=== PATIENT | male | born 1945 | race Caucasian/White ===

== ENCOUNTER 2018-01-09 06:33 | Observation (INO) | payer MEDICARE, OTHER, SELFPAY ==
[2018-01-09] VITALS (17 sets, daily range): BP systolic 117–148; BP diastolic 50–79; PULSE 63–90; RESP 17–21; TEMP 36.7–37.1; O2SAT 97–100; BMI 34.4; BMI 34.1; BMI 34.2
--- NOTE | 2018-01-09 06:42 | EKG12_ITS ---
Test Reason : LIGHTHEADEDNESS Blood Pressure : / mmHG Vent. Rate : 067 BPM Atrial Rate : 067 BPM P-R Int : 148 ms QRS Dur : 082 ms QT Int : 388 ms P-R-T Axes : 061 029 060 degrees QTc Int : 409 ms Normal sinus rhythm Normal ECG Confirmed by JENIFER JEAN BAPTISTE, JADEN ([id number]), film or videotape editor RAMON MAJANO ([id number]) on 01/12/2018 9:34:01 AM Referred By: OSBALDO Confirmed By:JADEN BURGESS MD
--- NOTE | 2018-01-09 06:42 | RAD_ITS ---
STUDY: X-RAY CHEST REASON FOR EXAM: Male, 72 years old. Chest pain TECHNIQUE: Single AP portable view of the chest. COMPARISON: None. FINDINGS: The lungs are clear and expanded. There is no demonstrated pleural abnormality. Normal size heart. Normal mediastinum and kenny. Normal visualized pulmonary arteries. Normal visualized aortic arch and descending thoracic aorta. Normal visualized thoracic spine. There is degenerative osteoarthritis of the bilateral shoulders. There is no demonstrated abnormality of the visualized soft tissue structures of the upper abdomen. RAD/Chest 1 View IMPRESSION: Degenerative changes, as described above. No demonstrated acute cardiopulmonary process. Electronically Signed: James Faustin MD at 8:08 EST Tel , Service support ,
--- NOTE | 2018-01-09 06:42 | CT_ITS ---
STUDY: CT BRAIN WITHOUT CONTRAST REASON FOR EXAM: Male, 72 years old. Dizziness RADIATION DOSAGE (If Supplied By Facility): CTDIvol = ( 44.99 ) mGy, DLP = ( 832.67 ) mGycm TECHNIQUE: Transaxial CT imaging of the brain was performed without administration of intravenous contrast material. Individualized dose optimization techniques were used for this CT. COMPARISON: None. FINDINGS: Normal soft tissue structures. Normal calvarium. There is mild cerebral atrophy with widening of the extra-axial spaces and ventricular dilatation. There are areas of decreased attenuation within the white matter tracts of the supratentorial brain, consistent with microvascular disease changes. Normal basal ganglia and thalami. Normal brainstem. Normal cerebellum. There is no intracranial hemorrhage. There are no findings of an acute ischemic infarction. Normal visualized paranasal sinuses. CT/Brain/Head without Contrast IMPRESSION: Chronic involutional changes of the brain. Electronically Signed: James Faustin MD at 7:55 EST Tel , Service support ,
--- NOTE | 2018-01-09 06:45 | ED.VISSUMM ---
- ER Visit Summary Date of Service: 01/09/18 Chief Complaint: Dizziness History of Present Illness: The patient is a 72 M who presents for dizziness since yesterday morning. Patient got up and was using the bathroom, and fell. He states he got dizzy prior to falling. He thinks he was sitting on the toilet when it occurred, and there is question whether he actually had a syncopal episode. Patient states he did not feel well the rest of the day, with a headache, continued dizziness and felt tired. He stayed in bed and slept most of the day. Whenever he has gotten out of bed he has to hold onto the wall for balance. He denies any chest pain, shortness of breath, abdominal pain, nausea or vomiting, vision changes, fever. He denies prior symptoms. He has a history of Parkinson's disease, diabetes and COPD. He has had no medication changes for the last 2 months. He was weaned off of benzodiazepines, with the last dose a couple months ago. He denies alcohol use. Physical Examination: Vital signs: afebrile, hemodynamically stable, no hypoxia on room air General: well nourished, well developed, in no distress, lying in bed Skin: warm, dry, no rash, no pallor HEENT: normocephalic and atraumatic no scalp tenderness or soft tissue injuries noted; PERRL, EOMI, no visual field deficits, no nystagmus, moist mucous membranes Cardiovascular: regular rate and rhythm without murmurs, no peripheral edema, 2+ pulses all distal extremities Respiratory: No increased work of breathing, lungs are clear to auscultation bilaterally, no rales, rhonchi or wheezing Abdominal: Abdomen is soft, nontender with normoactive bowel sounds, no guarding or rebound, no masses MSK: Moves all extremities, no deformities, normal strength Neuro: Awake and alert, oriented ?4. No facial droop, sensation and motor function intact and symmetric, normal finger to nose and heel to cano. NIH = 0 Test Results: Abnormal Lab Results 01/09/18 01/09/18 01/09/18 06:47 06:47 06:47 WBC 4.1 L RBC 3.67 L Hgb 12.1 L Hct 36.4 L MCV 99.2 H MCH 33.0 H MCHC 33.2 RDW 12.1 RDW Differential 42.9 Plt Count 98 L MPV 10.5 Immature Gran % (Auto) 0.000 Neut % (Auto) 67.4 Lymph % (Auto) 21.5 [place] % (Auto) 8.0 Eos % (Auto) 2.9 Baso % (Auto) 0.2 Absolute Neuts (auto) 2.8 Absolute Lymphs (auto) 0.89 Total Counted Not Reportable PT 15.0 H INR 1.2 APTT 32.0 Sodium 142 Potassium 4.1 Chloride 110 H Carbon Dioxide 21.0 Anion Gap 11 BUN 37 H Creatinine 1.52 H Estim Creat Clear Calc 38.48 Est GFR (MDRD) Af Amer 58 L Est GFR (MDRD) Non-Af 48 L BUN/Creatinine Ratio 24.3 H Glucose 198 H Calcium 7.9 L Total Bilirubin 0.40 AST 18 ALT 11 L Alkaline Phosphatase 76 Troponin I < 0.015 Total Protein 7.1 Albumin 3.2 Globulin 3.9 Albumin/Globulin Ratio 0.8 L POC Glucose 01/09/18 06:53 WBC RBC Hgb Hct MCV MCH MCHC RDW RDW Differential Plt Count MPV Immature Gran % (Auto) Neut % (Auto) Lymph % (Auto) [place] % (Auto) Eos % (Auto) Baso % (Auto) Absolute Neuts (auto) Absolute Lymphs (auto) Total Counted PT INR APTT Sodium Potassium Chloride Carbon Dioxide Anion Gap BUN Creatinine Estim Creat Clear Calc Est GFR (MDRD) Af Amer Est GFR (MDRD) Non-Af BUN/Creatinine Ratio Glucose Calcium Total Bilirubin AST ALT Alkaline Phosphatase Troponin I Total Protein Albumin Globulin Albumin/Globulin Ratio POC Glucose 194 H Medications Given Sodium Chloride () 1,000 mls @ 250 mls/hr IV .Q4H ONE Stop: 01/09/18 10:41 Last Admin: 01/09/18 06:53 Dose: 250 mls/hr Emergency Department Course and Treatment: Patient presents with dizziness since yesterday morning, which resulted in a fall. Patient is having difficulty describing his symptoms, but it sounds most consistent with imbalance/disequilibrium. Chart review shows patient had a prior visit for a fall in the bathroom due to his Parkinson's disease, however patient has had persistent symptoms since onset yesterday morning, concerning for a cause other than loss of balance due to Parkinson's or orthostatic hypotension. Workup performed to look for underlying cause, including possibility of central vertigo, such as cerebellar stroke. CT scan of the head showed no intracranial hemorrhage. Labs were remarkable for chronic thrombocytopenia, elevated creatinine consistent with dehydration. No significant anemia. Opponent negative and EKG showed a sinus rhythm with no ischemic changes or ectopy. Patient would benefit from admission for further evaluation of cause of his acute onset and persistent imbalance since yesterday. Once remaining labs and imaging return, patient will be admitted for further workup. Treatment Plan: [] Disposition: [] Impression: dysequilibrium, history of Parkinson's disease This note was generated with [employer] dictation software. It may contain incorrect words, spelling, and punctuation that were not noted in review of the chart prior to signing ED Disposition - Plan for ED Patient: Chief Complaint: Syncope Referrals: Radha Torres NP-C [Primary Care Provider] -
[2018-01-09] MEDS: 0.9% Normal Saline 1,000 ML 250 ML IV (06:53)
[2018-01-09 06:59] LABS: Absolute Lymphocyte Count 0.89 X10^3/ul (0.83-4.51); Absolute Neutrophil Count 2.8 X10^3/uL (2.0-7.7); Basophil# 0.01 X10^3/uL; Basophil% 0.2 % (0-1); Eosinophil# 0.12 X10^3/uL; Eosinophils% 2.9 % (0-5); Hematocrit 36.4 % (40-54); Hemoglobin 12.1 g/dl (13.0-16.5); Lymphocyte # 0.89 X10^3/ul (4.0); Lymphocyte % 21.5 % (19-41); Mean Corp Hgb Conc 33.2 g/gl (32-36); Mean Corpuscular Volume 99.2 fL (80-94); Mean Platelet Vol. 10.5 fl (6.2-12.0); Monocyte# 0.33 X10^3/uL; Neutrophil # 2.79 X10^3/uL (2.7-7.7); Neutrophil % 67.4 % (47-70); Platelet Count 98 K/mm3 (150-450); RBC Distribution Width CV 12.1 % (11.6-14.6); RBC Distribution Width SD 42.9 fl (35.1-43.9); Red Blood Count 3.67 M/mm3 (4.6-6.2); White Blood Count 4.1 K/mm3 (4.4-11.0)
[2018-01-09 07:00] LABS: POSITIVE COUNT NO; POSITIVE DIFFERENTIAL NO; POSITIVE MORPHOLOGY NO
[2018-01-09 07:01] LABS: Bedside Glucose 194 mg/dL (70-110)
[2018-01-09 07:04] LABS: International Normalized Ratio 1.2
[2018-01-09 07:21] LABS: ALB/GLOB Ratio 0.8 RATIO (0.9-2.4); AST(SGOT) 18 U/L (15-37); Alanine Aminotransfer ALT/SGPT 11 U/L (16-61); Albumin, Serum 3.2 g/dL (3.2-5.0); Alkaline Phosphatase 76 U/L (45-117); Anion Gap 11 (5-15); BUN 37 mg/dL (7-18); BUN/Creat Ratio 24.3 RATIO (10-20); Calcium,Total 7.9 mg/dL (8.5-10.1); Chloride 110 mmol/L (98-107); Creatinine, Serum 1.52 mg/dL (0.70-1.30); EST Glomerular Filtration Rate 48 mL/min (>60); Est Glom Filt Rate - Afr Amer 58 mL/min (>60); Estimated Creatinine Clearance 38.48 ml/min; Globulin 3.9 g/dL (2.2-4.2); Glucose 198 mg/dL (74-106); Potassium 4.1 mmol/L (3.5-5.1); Protein, Total 7.1 g/dL (6.4-8.2); Sodium Level 142 mmol/L (136-145)
[2018-01-09 08:00] LABS: Mucous, Urine 0 SEEN /hpf (<or=2+); Red Blood Cells-Urine 0 SEEN /hpf (0-5)
[2018-01-09 08:04] LABS: Color, Urine Yellow (Yellow); Glucose, Dipstick 1000 mg/dl (Normal); Ketone-Dipstick Negative (Negative); Leukocyte Esterase-Dipstick 25 /ul (Negative); Nitrite-Dipstick Negative (Negative); Occult Blood-Urine Negative /ul (Negative); Protein-Dipstick Negative (Negative); Urine Bilirubin Dipstick Negative (Negative); Urine Clarity Sl. Cloudy (Clear); Urine Urobilinogen Normal (Normal)
[2018-01-09 08:10] LABS: Bacteria RARE /hpf (None Seen); Squamous Epithelial Cells - UA 0-5 SEEN /hpf (0-5); White Blood Cells 0-5 SEEN /hpf (0-5)
--- NOTE | 2018-01-09 08:28 | PCM.HP.STD ---
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 Patient symptoms occurred last evening after having dinner. He states he does not recall whether he passed out or not. He waited till midnight to inform the family was brought to the emergency department workup was unremarkable patient subsequently admitted to a monitored bed for subsequent evaluation and management. Past Medical History Past Medical History (Chronic Problems): Chronic Problems Venous stasis dermatitis of both lower extremities (Chronic) Neuropathy associated with endocrine disorder (Chronic) Peripheral vascular disease (Chronic) Tobacco abuse (Chronic) Anxiety (Chronic) Diabetes mellitus (Chronic) Venous stasis (Chronic) Parkinsonian features (Chronic) Allergies diclofenac Adverse Reaction (Verified 01/09/18 06:37) intolerance, leg edema aloe vera Allergy (Uncoded 01/09/18 06:37) Rash Home Medications: Ambulatory Orders Medication Instructions Recorded Clorazepate Dipotassium [Tranxene 15 mg PO QHS 06/26/15 T-Tab] Hydrochlorothiazide [Hctz] 25 mg PO DAILY 06/26/15 Metformin HCl [Metformin HCl ER] 500 mg PO DINNER 06/26/15 Ropinirole HCl [Requip] 1 mg PO TID 06/26/15 Tamsulosin HCl [Flomax] 0.8 mg PO QHS 06/26/15 Budesonide/Formoterol 80-4.5 2 puff INHALATION BID 09/11/15 [Symbicort 80-4.5 Mcg Inhaler] Carbidopa/Levodopa 25/100 [Sinemet] 2 tablet PO TIDAC 09/11/15 Levothyroxine Sodium [Levoxyl] 100 mcg PO DAILY 09/11/15 Tiotropium [place] [Spiriva 18 MCG] 1 puff INHALATION DAILY 09/11/15 Citalopram [Celexa] 20 mg PO DAILY 01/09/18 Melatonin 3 mg PO QHS 01/09/18 Meloxicam [Mobic] 15 mg PO DAILY 01/09/18 Smoking Status: Current every day smoker - *Family History Sibling History Items: Heart Disease - Brother of heart attack at age 36 Review of Systems Constitutional: Denies: Anorexia, Chills, Fever, Night Sweats, Weight Change HEENT: Denies: Head Aches, Sinus Congestion, Sinus Drainage Cardiovascular: Denies: Chest Pain, Orthopnea, Palpitations Respiratory: Denies: Cough, Shortness of breath at rest, Shortness of breath upon exertion, Sputum production Gastrointestinal: Denies: Abdominal Pain, Hematemesis, Hematochezia, Nausea, Melena, Vomiting Genitourinary: Denies: Dysuria, Frequency, Hematuria, Urgency Musculoskeletal: Denies: Joint Pain, Joint Tenderness Skin: Denies: Rash Neurological: Denies: Focal weakness, Numbness, Tingling Psychiatric: Denies: Homicidal Ideations, Suicidal Ideations Hematologic/ Lymphatic: Denies: Easy Bruising, Easy Bleeding VTE Information - Inpt Only VTE Present on Admission: No VTE Mechan Device Prophylaxis: Knee High TIFFANIE Hose VTE Pharm Prophylaxis ordered?: Yes Patient Problems: Active and Suspected Problems Dizziness (Acute) Objective: GENERAL: cooperative HEENT: Atraumatic; EYES; Anicteric, Normal Conjunctiva NECK; supple, normal thyroid, RESPIRATORY: Diminished to auscultation bilaterally, CARDIOVASCULAR: Regular S1 S2, no audible murmurs GI: soft, non-tender, normoactive bowel sounds, : No Renal angle tenderness; EXTREMITIES: No clubbing, no cyanosis. MUSCULOSKELETAL: No Joint Tenderness; NEURO: Awake; no lateralizing signs. PSYCH; Normal affect - Physical Exam Vital Signs Temp Pulse Resp BP Pulse Ox 98.2 F 76 18 126/66 H 100 01/09/18 06:34 01/09/18 08:00 01/09/18 08:00 01/09/18 08:00 01/09/18 08:00 Oxygen Flow Rate (L/min) 2 Oxygen Delivery Method Nasal Cannula Weight: 96.8 kg Body Mass Index (BMI) 34.4 Finger Stick Blood Glucose 194 Laboratory Tests Past 24 Hrs 01/09/18 01/09/18 01/09/18 06:47 06:47 06:47 WBC 4.1 L RBC 3.67 L Hgb 12.1 L Hct 36.4 L MCV 99.2 H MCH 33.0 H MCHC 33.2 RDW 12.1 RDW Differential 42.9 Plt Count 98 L MPV 10.5 Immature Gran % (Auto) 0.000 Neut % (Auto) 67.4 Lymph % (Auto) 21.5 [place] % (Auto) 8.0 Eos % (Auto) 2.9 Baso % (Auto) 0.2 Absolute Neuts (auto) 2.8 Absolute Lymphs (auto) 0.89 Total Counted Not Reportable PT 15.0 H INR 1.2 APTT 32.0 Sodium 142 Potassium 4.1 Chloride 110 H Carbon Dioxide 21.0 Anion Gap 11 BUN 37 H Creatinine 1.52 H Estim Creat Clear Calc 38.48 Est GFR (MDRD) Af Amer 58 L Est GFR (MDRD) Non-Af 48 L BUN/Creatinine Ratio 24.3 H Glucose 198 H Calcium 7.9 L Total Bilirubin 0.40 AST 18 ALT 11 L Alkaline Phosphatase 76 Troponin I < 0.015 Total Protein 7.1 Albumin 3.2 Globulin 3.9 Albumin/Globulin Ratio 0.8 L Urine Color Urine Clarity Urine pH Ur Specific [place] Urine Protein Urine Glucose (UA) Urine Ketones Urine Occult Blood Urine Nitrite Urine Bilirubin Urine Urobilinogen Ur Leukocyte Esterase Urine RBC Urine WBC Ur Squamous Epith Cells Urine Bacteria Urine Mucus 01/09/18 07:50 WBC RBC Hgb Hct MCV MCH MCHC RDW RDW Differential Plt Count MPV Immature Gran % (Auto) Neut % (Auto) Lymph % (Auto) [place] % (Auto) Eos % (Auto) Baso % (Auto) Absolute Neuts (auto) Absolute Lymphs (auto) Total Counted PT INR APTT Sodium Potassium Chloride Carbon Dioxide Anion Gap BUN Creatinine Estim Creat Clear Calc Est GFR (MDRD) Af Amer Est GFR (MDRD) Non-Af BUN/Creatinine Ratio Glucose Calcium Total Bilirubin AST ALT Alkaline Phosphatase Troponin I Total Protein Albumin Globulin Albumin/Globulin Ratio Urine Color Yellow Urine Clarity Sl. Cloudy Urine pH 6.0 Ur Specific [place] 1.020 Urine Protein Negative Urine Glucose (UA) 1000 H Urine Ketones Negative Urine Occult Blood Negative Urine Nitrite Negative Urine Bilirubin Negative Urine Urobilinogen Normal Ur Leukocyte Esterase 25 H Urine RBC 0 SEEN Urine WBC 0-5 SEEN Ur Squamous Epith Cells 0-5 SEEN Urine Bacteria RARE Urine Mucus 0 SEEN POC Glucose 01/09/18 06:53 POC Glucose 194 H Assessment/Plan All Active Problems Dizziness (Acute) Pancytopenia (Resolved) Diabetic foot infection (Resolved) Patient is a 72-year-old gentleman presented with dizziness 1. Dizziness: Patient admitted to monitored bed ordered every shift orthostatic checks. Patient was also placed on neurochecks in addition to MRI and 2D echo being ordered as part of patient's evaluation 2. Diabetes mellitus type II: Controlled controlled with complications including diabetic nephropathy. Patient's oral hypoglycemic agents held on admission. Placed on long acting insulin, Accu-Cheks a.c. and at bedtime and covered with sliding scale insulin 3. Parkinson's disease did continue patient antiparkinsonian medications 4. Hypertension-blood pressure controlled, on HCTZ at home held in view of his impaired kidney function 5. Hypothyroidism-patient is on levothyroxine home dose continued 6. COPD nebs as needed 7. BPH on Flomax 8. DVT prophylaxis SC Lovenox Clinical Impression(s) from Imaging Studies Brain CT 01/09/18 06:42 IMPRESSION: Chronic involutional changes of the brain. Electronically Signed: James Faustin MD at 7:55 EST Tel , Service support , Chest X-Ray 01/09/18 06:42 IMPRESSION: Degenerative changes, as described above. No demonstrated acute cardiopulmonary process. Electronically Signed: James Faustin MD at 8:08 EST Tel , Service support , Code Visit OBSV E&M: [id number] Initial observation care L3
--- NOTE | 2018-01-09 10:39 | ECHOD_ITS ---
Reason For Study: Syncope Procedure This was a 2D Doppler, Color Flow transthoracic echocardiogram. The study was technically difficult. Exam performed portable in patient room. Left Ventricle Normal LV size. Left ventricular systolic function is normal. The estimated ejection fraction is 60 %. Stage 1 diastolic dysfunction. No regional wall motion abnormalities noted. Right Ventricle Normal RV size. Normal systolic function. Atria Normal left atrium. Normal right atrium. Mitral Valve Normal mitral valve. Tricuspid Valve Normal tricuspid valve. Mild (1+) tricuspid valve insufficiency. Pulmonary artery systolic pressure is 36 mmHg. Aortic Valve The aortic valve is not well visualized. Pulmonic Valve The pulmonic valve is not well visualized. Great Vessels Normal aortic root. The pulmonary artery is normal size. Pericardium/Pleural No pericardial effusion. MMode/2D Measurements & Calculations LVIDd: 3.6 cm IVSd: 0.92 cm LAV(MOD-sp4): 39.1 ml RVDd: 3.1 cm LVPWd: 0.95 cm LVAd ap4: 29.0 cm2 SV(MOD-sp4): 59.0 ml SV(sp4-el): 64.3 ml EDV(MOD-sp4): 88.3 ml EDV(sp4-el): 92.4 ml LVAs ap4: 14.4 cm2 ESV(MOD-sp4): 29.3 ml ESV(sp4-el): 28.1 ml EF(MOD-sp4): 66.9 % EF(sp4-el): 69.6 % LA A4 area: 15.7 cm2 RA A4 area: 13.7 cm2 Time Measurements MV dec time: 0.35 sec Doppler Measurements & Calculations MV E max angelo: 71.7 cm/sec Lat Peak E' Angelo: 13.1 cm/sec Med Peak E' Angelo: 12.8 cm/sec MV A max angelo: 86.4 cm/sec E/E' lat: 5.5 E/E' med: 5.6 MV E/A: 0.83 MV V2 max: 108.3 cm/sec MV P1/2t max angelo: 94.2 cm/sec Ao V2 max: 163.6 cm/sec MV max P.7 mmHg MV P1/2t: 98.9 msec Ao max P.7 mmHg MV V2 mean: 56.0 cm/sec Ao V2 mean: 101.9 cm/sec MV mean P.5 mmHg MV dec slope: 279.0 cm/sec2 Ao mean P.9 mmHg MV V2 VTI: 31.9 cm MVA(P1/2t): 2.2 cm2 Ao V2 VTI: 30.8 cm LV V1 max: 126.1 cm/sec PA V2 max: 123.6 cm/sec TR max angelo: 280.5 cm/sec LV V1 max P.4 mmHg TR max P.5 mmHg LV V1 mean P.4 mmHg LV V1 mean: 87.0 cm/sec LV V1 VTI: 27.5 cm Interpretation Summary Normal LV size. Left ventricular systolic function is normal. The estimated ejection fraction is 60 %. Stage 1 diastolic dysfunction. Pulmonary artery systolic pressure is 36 mmHg. Ordering Physician: Rohith Vann Referring Physician: Radha Torres Performed By: Satish Mike RCS
--- NOTE | 2018-01-09 10:39 | CT_ITS ---
STUDY: CTA OF THE BRAIN REASON FOR EXAM: Male, 72 years old. Stroke RADIATION DOSAGE (If Supplied By Facility): CTDIvol = ( 23.91 ) mGy, DLP = ( 786.16 ) mGycm TECHNIQUE: CT angiography was performed with a multi-detector CT scanner. Data acquisition was obtained from the skull base through the vertex following intravenous administration of 100 ml of Isovue-370. MIP images were reconstructed from the axial data set. Post-processing of the angiographic images was performed, with multiplanar reformation and 3D reconstruction. Individualized dose optimization techniques were used for this CT. COMPARISON: MR brain January 09, 2018 FINDINGS: Normal bilateral petrous carotid arteries. Normal right cavernous carotid artery with a normal supraclinoid bifurcation. Normal left cavernous carotid artery with a normal supraclinoid bifurcation. 2 mm possible aneurysm lateral aspect cavernous sinus on the left. Calcified plaque in the cavernous segments bilaterally but no significant stenosis. Normal right A1 segments of the anterior cerebral artery. There is hypoplastic development of the left A1 segment of the anterior cerebral arteries with an atretic but intact artery. Normal intact anterior communicating artery (ACOM). Normal bilateral A2 segments of the anterior cerebral arteries. Normal right M1 and M2 segments of the middle cerebral arteries, with a normal M1 bifurcation. Normal left M1 and M2 segments of the middle cerebral arteries, with a normal M1 bifurcation. There is non-visualization of the right posterior communicating artery (PCOM). Normal left posterior communicating artery (PCOM). Mild to moderate stenosis in the distal vertebral arteries bilaterally due to mixed plaque. Moderate narrowing of the basilar artery. Hhe visualized bilateral superior cerebellar (SCA) arteries are normal. Normal bilateral P1, P2 and visualized P3 segments of the posterior cerebral arteries. There is no demonstrated aneurysm of the [place]. There is no demonstrated abnormality of the visualized brain. CT/CTA Head W/WO Contrast IMPRESSION: Mild to moderate focal stenoses distal vertebral arteries bilaterally. 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 Electronically Signed: Mio Durham MD at 18:25 EST , Service support ,
--- NOTE | 2018-01-09 10:39 | CT_ITS ---
STUDY: CTA NECK WITH CONTRAST REASON FOR EXAM: Male, 72 years old. TIA RADIATION DOSAGE (If Supplied By Facility): CTDIvol = ( 23.91 ) mGy, DLP = ( 786.16 ) mGycm TECHNIQUE: CT angiography with multi-detector data acquisition was performed from the aortic arch to the skull base following intravenous administration of 100 ml of Isovue 370 contrast. MIP images were reconstructed from the axial data set. Post-processing of the angiographic images was performed, with multiplanar reformation and 3D reconstruction. Individualized dose optimization techniques were used for this CT. COMPARISON: None. FINDINGS: AORTIC ARCH: Normal visualized aortic arch. Normal origins of the brachiocephalic, left common carotid, and left subclavian arteries. RIGHT CAROTID ARTERIES: Normal right common carotid artery (CCA). There is mild atherosclerotic plaque formation with minimal narrowing of the right carotid bulb. There is mild atherosclerotic plaque formation of the origin of the right internal carotid artery with less than 50% cross sectional diameter stenosis. Normal visualized cervical portion of the right internal carotid artery. Normal origin of the right external carotid artery (ECA). LEFT CAROTID ARTERIES: Normal left common carotid artery (CCA). There is mild atherosclerotic plaque formation with minimal narrowing of the left carotid bulb. There is mild atherosclerotic plaque formation of the origin of the left internal carotid artery with less than 50% cross sectional diameter stenosis. Normal visualized cervical portion of the left internal carotid artery. Normal origin of the left external carotid artery (ECA). VERTEBRAL ARTERIES: Normal bilateral vertebral arteries. Left vertebral artery origin from the arch normal variant. CT/CTA Neck W/WO Contrast IMPRESSION: Small amount of plaque in the carotid bulbs bilaterally with no significant stenosis. Electronically Signed: Mio Durham MD at 16:40 EST , Service support ,
--- NOTE | 2018-01-09 10:39 | MRI_ITS ---
STUDY: MRI BRAIN WITHOUT CONTRAST REASON FOR EXAM: Male, 72 years old. Vertigo and fall yesterday. History of Parkinson's and migraines. TECHNIQUE: Standardized multiplanar fat and water weighted pulse sequences were obtained. COMPARISON: CT brain January 09, 2018 FINDINGS: There is mild cerebral atrophy with widening of the extra-axial spaces and ventricular dilatation. There are a limited number of small white matter hyperintensities, distributed throughout the deep white matter tracts of the cerebral hemispheres, consistent with mild chronic white matter ischemic changes. There is no evidence for recent intracranial ischemia or other cause of cytotoxic edema on diffusion weighted imaging (DWI). Normal bilateral basal ganglia. Normal thalami. There is no extra-axial fluid accumulation. Normal flow voids within the major intracranial circulation suggesting patency by spin echo criteria. Normal sella turcica, pituitary gland, infundibular stalk, optic chiasm and hypothalamus. Normal tectal plate and pineal gland. Normal midbrain, nik and medulla. Normal cerebellum. Normal basal cisterns. Normal bilateral temporal bones. Normal bilateral internal auditory canals. There are bilateral ocular lens implants with otherwise normal intraorbital contents. Normal visualized paranasal sinuses. Normal calvarium and skull base. Normal visualized soft tissue structures. Normal visualized upper cervical spine. MRI/Brain without Contrast IMPRESSION: Involutional changes of the brain, as described above. Electronically Signed: Mio Durham MD at 16:04 EST , Service support ,
[2018-01-09 11:24] LABS: Magnesium 2.4 mg/dL (1.6-2.6); Thyroid Stim Hormone (TSH) 0.46 uIU/mL (0.358-3.74)
[2018-01-09] MEDS: 0.9% Normal Saline 1,000 ML 100 ML IV (14:02)
[2018-01-09] MEDS: Enoxaparin 40 MG/0.4 ML Syringe SC (14:28)
[2018-01-09] MEDS: Pramipexole Di-HCl 0.5 MG Tablet PO ×2 (16:53→22:49)
[2018-01-09] MEDS: Carbidopa/Levodopa 25/100 Tablet PO (16:53)
[2018-01-09 17:01] LABS: Bedside Glucose 110 mg/dL (70-110)
[2018-01-09] MEDS: Ipratropium/Albuterol Sulfate 3 ML AMPUL.NEB INHALATION (19:52)
[2018-01-09] MEDS: Budesonide Respules 0.5 MG/2 ML AMPUL.NEB. INHALATION (19:52)
[2018-01-09] MEDS: Tamsulosin HCl 0.4 MG Capsule 0.8 MG PO (22:49)
[2018-01-09] MEDS: MELATONIN 3 MG TABLET PO (22:49)
[2018-01-09] MEDS: Insulin Lispro 100 UNIT/ML INSULN.PEN SQ (22:56)
[2018-01-09 23:05] LABS: Bedside Glucose 192 mg/dL (70-110)
[2018-01-10] VITALS (8 sets, daily range): BP systolic 121–143; BP diastolic 57–69; PULSE 65–79; RESP 16–18; TEMP 36.7–37.1; O2SAT 95–97
[2018-01-10] MEDS: 0.9% Normal Saline 1,000 ML 100 ML IV (02:43)
[2018-01-10] MEDS: Pramipexole Di-HCl 0.5 MG Tablet PO (06:02)
[2018-01-10] MEDS: Levothyroxine 100 MCG Tablet PO (06:02)
[2018-01-10 06:25] LABS: Anion Gap 9 (5-15); BUN 31 mg/dL (7-18); BUN/Creat Ratio 30.1 RATIO (10-20); Calcium,Total 7.5 mg/dL (8.5-10.1); Chloride 112 mmol/L (98-107); Cholesterol 137 mg/dL (200); Creatinine, Serum 1.03 mg/dL (0.70-1.30); EST Glomerular Filtration Rate 75 mL/min (>60); Est Glom Filt Rate - Afr Amer 91 mL/min (>60); Estimated Creatinine Clearance 56.78 ml/min; Glucose 103 mg/dL (74-106); High Density Lipoprotein 49 mg/dL; Potassium 4.5 mmol/L (3.5-5.1); Sodium Level 143 mmol/L (136-145); Triglycerides 71 mg/dL; Very Low Density Lipoprotein 14 mg/dL (5-40)
[2018-01-10] MEDS: Budesonide Respules 0.5 MG/2 ML AMPUL.NEB. INHALATION (06:50)
[2018-01-10] MEDS: Ipratropium/Albuterol Sulfate 3 ML AMPUL.NEB INHALATION (06:50)
[2018-01-10 07:06] LABS: Bedside Glucose 105 mg/dL (70-110)
[2018-01-10] MEDS: Carbidopa/Levodopa 25/100 Tablet PO (07:56)
--- NOTE | 2018-01-10 08:43 | DCINST_ITS ---
- Discharge Diagnoses Current Active Problems: Current Active and Chronic Problems Dizziness (Acute) You will use the following diet at home:: Calorie/Carbohydrate Controlled (specify 1200, 1400, etc) - 1800 Your food should be the consistency of: Regular Discharge Activity: May not drive while taking narcotic pain medications. Allergies/Adverse Reactions: Allergies diclofenac Adverse Reaction (Verified 01/09/18 06:37) intolerance, leg edema aloe vera Allergy (Uncoded 01/09/18 06:37) Rash Medications to take at Discharge Clorazepate Dipotassium [Tranxene T-Tab] 15 mg PO QHS 06/26/15 Metformin HCl [Metformin HCl ER] 500 mg PO DINNER 06/26/15 Ropinirole HCl [Requip] 1 mg PO TID 06/26/15 Tamsulosin HCl [Flomax] 0.8 mg PO QHS 06/26/15 Budesonide/Formoterol 80-4.5 [Symbicort 80-4.5 Mcg Inhaler] 2 puff INHALATION BID 09/11/15 Carbidopa/Levodopa 25/100 [Sinemet 25/100] 2 tablet PO TIDAC 09/11/15 Levothyroxine Sodium [Levoxyl] 125 mcg PO DAILY 09/11/15 Tiotropium [place] [Spiriva 18 MCG] 1 puff INHALATION DAILY 09/11/15 Albuterol IH (ProAir) [Proair Hfa] 1 puff INHALATION Q6H PRN PRN 01/09/18 Citalopram [Celexa] 20 mg PO DAILY 01/09/18 Empagliflozin [Jardiance] 10 mg PO 01/09/18 Lisinopril [Zestril] 10 mg PO DAILY 01/09/18 Melatonin 3 mg PO QHS 01/09/18 Primary Care Physician: Radha Torres, LEIGHANN-C [Primary Care Provider] - Please follow up with your Primary Care Physician in: in 5-7 days Test Results: Test results from this visit will be discussed in further detail at your follow- up appointment, if applicable. Proposed Discharge Date: 01/10/18
--- NOTE | 2018-01-10 08:43 | PCM.DC.SUM ---
Discharge Date and Diagnosis - Problem List Patient Problems: Active and Suspected Problems PRUDENCE (acute kidney injury) (Acute) Dizziness (Acute) Date of Admission: 01/09/18 Date of Discharge: 01/10/18 - Primary Discharge Diagnosis Active and Suspected Problems PRUDENCE (acute kidney injury) (Acute) Dizziness (Acute) - Secondary Discharge Diagnosis Chronic Problems Venous stasis dermatitis of both lower extremities (Chronic) Neuropathy associated with endocrine disorder (Chronic) Peripheral vascular disease (Chronic) Tobacco abuse (Chronic) Anxiety (Chronic) Diabetes mellitus (Chronic) Venous stasis (Chronic) Parkinsonian features (Chronic) Hospital Course and Treatment Imaging Results: Clinical Impression(s) from Imaging Studies Brain CT 01/09/18 06:42 IMPRESSION: Chronic involutional changes of the brain. Electronically Signed: James Faustin MD at 7:55 EST Tel , Service support , Chest X-Ray 01/09/18 06:42 IMPRESSION: Degenerative changes, as described above. No demonstrated acute cardiopulmonary process. Electronically Signed: James Faustin MD at 8:08 EST Tel , Service support , Brain MRI 01/09/18 10:39 IMPRESSION: Involutional changes of the brain, as described above. Electronically Signed: Mio Durham MD at 16:04 EST , Service support , Head CTA 01/09/18 10:39 IMPRESSION: Mild to moderate focal stenoses distal vertebral arteries bilaterally. 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 Electronically Signed: Mio Durham MD at 18:25 EST , Service support , Neck CTA 01/09/18 10:39 IMPRESSION: Small amount of plaque in the carotid bulbs bilaterally with no significant stenosis. Electronically Signed: Mio Durham MD at 16:40 EST , Service support , Summary of Care Provided: Patient is a 72-year-old gentleman presented withvpresyncope 1. Presyncope secondary to hypovolemia. Patient was found to have acute kidney injury on admission admitted to a monitored bed did rule out acute CVA with an MRI. Patient was resuscitated with IV fluids symptoms resolved 2. Acute kidney injury do suspect patient medication patient was on metformin, lisinopril, HCTZ, as well as NSAIDs. Patient HCTZ and NSAIDs discontinued on discharge patient was instructed to follow-up with primary care provider within 3-5 days for reevaluation and subsequent medication adjustment if needed 3 Diabetes mellitus type II: Controlled Patient's oral hypoglycemic agents held on admission. Placed on long acting insulin, Accu-Cheks a.c. and at bedtime and covered with sliding scale insulin 4. Parkinson's disease did continue patient antiparkinsonian medications 5. Hypertension-blood pressure controlled, on HCTZ at home held in view of his impaired kidney function 6. Hypothyroidism-patient is on levothyroxine home dose continued 7. COPD nebs as needed 8. BPH on Flomax 9. DVT prophylaxis SC Lovenox Patient Problems: Active and Suspected Problems PRUDENCE (acute kidney injury) (Acute) Dizziness (Acute) - Physical Exam General: Alert, Oriented x3 HEENT: Atraumatic Neck: No JVD Lungs: Diminished Cardiovascular: Regular rate, Regular Rhythm Neurological: Neuro grossly intact Psych/Mental Status: Normal Affect Vital Signs Temp Pulse Resp BP Pulse Ox 98.4 F 79 18 136/61 H 96 01/10/18 05:55 01/10/18 07:14 01/10/18 06:50 01/10/18 05:56 01/10/18 05:55 Oxygen Flow Rate (L/min) 2 Oxygen Delivery Method Room Air Weight: 96.026 kg Body Mass Index (BMI) 34.1 Finger Stick Blood Glucose 194 Orthostatic Vital Signs Start: 01/09/18 12:50 Freq: q24h Status: Active Protocol: Activity Type Activity Date Activity User E-Sign Co-Sign Detail Recorded Client Recorded Date Recorded By Document 01/10/18 05:56 [email or web address] [id number] 01/10/18 06:01 AR 01/10/18 05:56 Orthostatic Vitals Standing -Blood Pressure (90/60-120/80 mm Hg) 143/62 H -Extremity Use Right Arm -Pulse Rate (60-100 beats/min) 73 Sitting -Blood Pressure (90/60-120/80 mm Hg) 141/58 H -Extremity Use Right Arm -Pulse Rate (60-100 beats/min) 67 Lying -Blood Pressure (90/60-120/80 mm Hg) 136/61 H -Extremity Use Right Arm -Pulse Rate (60-100 beats/min) 65 Intake and Output for Last 24 Hours 01/08/18 01/09/18 01/10/18 23:59 23:59 23:59 Intake Total 2767 / 2767 595 / 595 Output Total 654 / 654 220 / 220 Balance 2113 / 2113 375 / 375 Laboratory Tests Past 24 Hrs 01/09/18 01/09/18 01/10/18 10:52 13:40 05:26 Sodium 143 Potassium 4.5 Chloride 112 H Carbon Dioxide 22.0 Anion Gap 9 BUN 31 H Creatinine 1.03 Estim Creat Clear Calc 56.78 Est GFR (MDRD) Af Amer 91 Est GFR (MDRD) Non-Af 75 BUN/Creatinine Ratio 30.1 H Glucose 103 Calcium 7.5 L Magnesium 2.4 Troponin I < 0.015 < 0.015 Triglycerides 71 Cholesterol 137 LDL Cholesterol 74 VLDL Cholesterol 14 HDL Cholesterol 49 TSH 0.46 POC Glucose 01/10/18 01/09/18 01/09/18 07:00 22:48 16:51 POC Glucose 105 192 H 110 Discharge Activity: May not drive while taking narcotic pain medications. Home Medications: Medications to take at Discharge Clorazepate Dipotassium [Tranxene T-Tab] 15 mg PO QHS 06/26/15 Metformin HCl [Metformin HCl ER] 500 mg PO DINNER 06/26/15 Ropinirole HCl [Requip] 1 mg PO TID 06/26/15 Tamsulosin HCl [Flomax] 0.8 mg PO QHS 06/26/15 Budesonide/Formoterol 80-4.5 [Symbicort 80-4.5 Mcg Inhaler] 2 puff INHALATION BID 09/11/15 Carbidopa/Levodopa 25/100 [Sinemet 25/100] 2 tablet PO TIDAC 09/11/15 Levothyroxine Sodium [Levoxyl] 125 mcg PO DAILY 09/11/15 Tiotropium [place] [Spiriva 18 MCG] 1 puff INHALATION DAILY 09/11/15 Albuterol IH (ProAir) [Proair Hfa] 1 puff INHALATION Q6H PRN PRN 01/09/18 Citalopram [Celexa] 20 mg PO DAILY 01/09/18 Empagliflozin [Jardiance] 10 mg PO 01/09/18 Lisinopril [Zestril] 10 mg PO DAILY 01/09/18 Melatonin 3 mg PO QHS 01/09/18 Primary Care Physician: Radha Torres NP-C [Primary Care Provider] - Please follow up with your Primary Care Physician in: in 5-7 days Disposition: Home Minutes spent on discharge:: 35 Patient Condition:: Stable Medical Necessity - Tobacco Use Smoking Status: Current every day smoker Meaningful Use Info Meaningful Use Diagnoses (Choose all that apply): None applicable Code Visit OBSV E&M: 34442 Observation care discharge
--- NOTE | 2018-01-10 08:49 | DS.PCM_ITS ---
Discharge Date and Diagnosis - Problem List Patient Problems: Active and Suspected Problems PRUDENCE (acute kidney injury) (Acute) Dizziness (Acute) Date of Admission: 01/09/18 Date of Discharge: 01/10/18 - Primary Discharge Diagnosis Active and Suspected Problems PRUDENCE (acute kidney injury) (Acute) Dizziness (Acute) - Secondary Discharge Diagnosis Chronic Problems Venous stasis dermatitis of both lower extremities (Chronic) Neuropathy associated with endocrine disorder (Chronic) Peripheral vascular disease (Chronic) Tobacco abuse (Chronic) Anxiety (Chronic) Diabetes mellitus (Chronic) Venous stasis (Chronic) Parkinsonian features (Chronic) Hospital Course and Treatment Imaging Results: Clinical Impression(s) from Imaging Studies Brain CT 01/09/18 06:42 IMPRESSION: Chronic involutional changes of the brain. Electronically Signed: James Faustin MD at 7:55 EST Tel , Service support , Chest X-Ray 01/09/18 06:42 IMPRESSION: Degenerative changes, as described above. No demonstrated acute cardiopulmonary process. Electronically Signed: James Faustin MD at 8:08 EST Tel , Service support , Brain MRI 01/09/18 10:39 IMPRESSION: Involutional changes of the brain, as described above. Electronically Signed: Mio Durham MD at 16:04 EST , Service support , Head CTA 01/09/18 10:39 IMPRESSION: Mild to moderate focal stenoses distal vertebral arteries bilaterally. 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 Electronically Signed: Mio Durham MD at 18:25 EST , Service support , Neck CTA 01/09/18 10:39 IMPRESSION: Small amount of plaque in the carotid bulbs bilaterally with no significant stenosis. Electronically Signed: Mio Durham MD at 16:40 EST , Service support , Summary of Care Provided: Patient is a 72-year-old gentleman presented withvpresyncope 1. Presyncope secondary to hypovolemia. Patient was found to have acute kidney injury on admission admitted to a monitored bed did rule out acute CVA with an MRI. Patient was resuscitated with IV fluids symptoms resolved 2. Acute kidney injury do suspect patient medication patient was on metformin, lisinopril, HCTZ, as well as NSAIDs. Patient HCTZ and NSAIDs discontinued on discharge patient was instructed to follow-up with primary care provider within 3-5 days for reevaluation and subsequent medication adjustment if needed 3 Diabetes mellitus type II: Controlled Patient's oral hypoglycemic agents held on admission. Placed on long acting insulin, Accu-Cheks a.c. and at bedtime and covered with sliding scale insulin 4. Parkinson's disease did continue patient antiparkinsonian medications 5. Hypertension-blood pressure controlled, on HCTZ at home held in view of his impaired kidney function 6. Hypothyroidism-patient is on levothyroxine home dose continued 7. COPD nebs as needed 8. BPH on Flomax 9. DVT prophylaxis SC Lovenox Patient Problems: Active and Suspected Problems PRUDENCE (acute kidney injury) (Acute) Dizziness (Acute) - Physical Exam General: Alert, Oriented x3 HEENT: Atraumatic Neck: No JVD Lungs: Diminished Cardiovascular: Regular rate, Regular Rhythm Neurological: Neuro grossly intact Psych/Mental Status: Normal Affect Vital Signs Temp Pulse Resp BP Pulse Ox 98.4 F 79 18 136/61 H 96 01/10/18 05:55 01/10/18 07:14 01/10/18 06:50 01/10/18 05:56 01/10/18 05:55 Oxygen Flow Rate (L/min) 2 Oxygen Delivery Method Room Air Weight: 96.026 kg Body Mass Index (BMI) 34.1 Finger Stick Blood Glucose 194 Orthostatic Vital Signs Start: 01/09/18 12:50 Freq: q24h Status: Active Protocol: Activity Type Activity Date Activity User E-Sign Co-Sign Detail Recorded Client Recorded Date Recorded By Document 01/10/18 05:56 JACKI [id number] 01/10/18 06:01 AR 01/10/18 05:56 Orthostatic Vitals Standing -Blood Pressure (90/60-120/80 mm Hg) 143/62 H -Extremity Use Right Arm -Pulse Rate (60-100 beats/min) 73 Sitting -Blood Pressure (90/60-120/80 mm Hg) 141/58 H -Extremity Use Right Arm -Pulse Rate (60-100 beats/min) 67 Lying -Blood Pressure (90/60-120/80 mm Hg) 136/61 H -Extremity Use Right Arm -Pulse Rate (60-100 beats/min) 65 Intake and Output for Last 24 Hours 01/08/18 01/09/18 01/10/18 23:59 23:59 23:59 Intake Total 2767 / 2767 595 / 595 Output Total 654 / 654 220 / 220 Balance 2113 / 2113 375 / 375 Laboratory Tests Past 24 Hrs 01/09/18 01/09/18 01/10/18 10:52 13:40 05:26 Sodium 143 Potassium 4.5 Chloride 112 H Carbon Dioxide 22.0 Anion Gap 9 BUN 31 H Creatinine 1.03 Estim Creat Clear Calc 56.78 Est GFR (MDRD) Af Amer 91 Est GFR (MDRD) Non-Af 75 BUN/Creatinine Ratio 30.1 H Glucose 103 Calcium 7.5 L Magnesium 2.4 Troponin I < 0.015 < 0.015 Triglycerides 71 Cholesterol 137 LDL Cholesterol 74 VLDL Cholesterol 14 HDL Cholesterol 49 TSH 0.46 POC Glucose 01/10/18 01/09/18 01/09/18 07:00 22:48 16:51 POC Glucose 105 192 H 110 Discharge Activity: May not drive while taking narcotic pain medications. Home Medications: Medications to take at Discharge Clorazepate Dipotassium [Tranxene T-Tab] 15 mg PO QHS 06/26/15 Metformin HCl [Metformin HCl ER] 500 mg PO DINNER 06/26/15 Ropinirole HCl [Requip] 1 mg PO TID 06/26/15 Tamsulosin HCl [Flomax] 0.8 mg PO QHS 06/26/15 Budesonide/Formoterol 80-4.5 [Symbicort 80-4.5 Mcg Inhaler] 2 puff INHALATION BID 09/11/15 Carbidopa/Levodopa 25/100 [Sinemet 25/100] 2 tablet PO TIDAC 09/11/15 Levothyroxine Sodium [Levoxyl] 125 mcg PO DAILY 09/11/15 Tiotropium [place] [Spiriva 18 MCG] 1 puff INHALATION DAILY 09/11/15 Albuterol IH (ProAir) [Proair Hfa] 1 puff INHALATION Q6H PRN PRN 01/09/18 Citalopram [Celexa] 20 mg PO DAILY 01/09/18 Empagliflozin [Jardiance] 10 mg PO 01/09/18 Lisinopril [Zestril] 10 mg PO DAILY 01/09/18 Melatonin 3 mg PO QHS 01/09/18 Primary Care Physician: Radha Torres NP-C [Primary Care Provider] - Please follow up with your Primary Care Physician in: in 5-7 days Disposition: Home Minutes spent on discharge:: 35 Patient Condition:: Stable Medical Necessity - Tobacco Use Smoking Status: Current every day smoker Meaningful Use Info Meaningful Use Diagnoses (Choose all that apply): None applicable Code Visit OBSV E&M: 97501 Observation care discharge
[2018-01-10] MEDS: Citalopram 20 MG Tablet PO (09:21)
== END 2018-01-10 08:43 | disposition home or self-care (01) ==
LOC: ED 08:14 → PCU 09:23
PROVIDERS: Emergency Medicine; Admitting Provider Internal Medicine; Emergency Provider Emergency Medicine; Family Provider Nurse Practitioner; PCP Nurse Practitioner; Visit Provider Internal Medicine
DX: N17.9 Acute kidney failure, unspecified (principal); E86.1 Hypovolemia; R42 Dizziness and giddiness; J44.9 Chronic obstructive pulmonary disease, unspecified; G20 Parkinson's disease; E11.51 Type 2 diabetes mellitus with diabetic peripheral angiopathy without gangrene; D61.818 Other pancytopenia; E11.40 Type 2 diabetes mellitus with diabetic neuropathy, unspecified; F41.9 Anxiety disorder, unspecified; I87.2 Venous insufficiency (chronic) (peripheral); N40.0 Benign prostatic hyperplasia without lower urinary tract symptoms; E03.9 Hypothyroidism, unspecified; I10 Essential (primary) hypertension; Z79.899 Other long term (current) drug therapy; Z79.84 Long term (current) use of oral hypoglycemic drugs; Z79.51 Long term (current) use of inhaled steroids; F17.210 Nicotine dependence, cigarettes, uncomplicated
CPT/HCPCS: 36415; 70450; 70496; 70498; 70551; 71045; 80048; 80053; 80061; 81001; 82962; 83735; 84443; 84484; 85025; 85610; 85730; 93005; 93306; 94640; 96360; 96361; 96372; 97162; 97166; 99218; 99285; 99406; J7030; A4216; G0378

== ENCOUNTER 2018-03-18 16:10 | Emergency (ER) | payer MEDICARE, OTHER, SELFPAY ==
[2018-01-09 10:44] VITALS: BMI 34.1
[2018-03-18 16:11] VITALS: BP 184/79; PULSE 75; RESP 16; TEMP 36.1; O2SAT 97; BMI 39.3
--- NOTE | 2018-03-18 16:42 | ED.VISSUMM ---
- ER Visit Summary Date of Service: 03/18/18 Chief Complaint: Back injury History of Present Illness: The patient is a 72 M presenting for evaluation secondary to a back injury. Patient reports that he was working on a flat tire on his snowblower today. This caused him to have to bend over and lifted a couple of times. He reports that after he completed that task he had a gradual onset of back pain. He reports it is in his lower back, does not radiate. Is not associated with any sort of numbness or weakness or bowel or bladder incontinence. Denies any fevers recent injections or surgeries. Patient has not taken anything for the pain yet. Review of systems otherwise negative. Physical Examination: Vitals: Within normal limits General: Well-nourished well-developed no acute distress Head: Normocephalic atraumatic ENT: Moist mucous membranes Neck: Supple no JVD Cardiovascular: Heart regular rate and rhythm no murmurs Respiratory: Respirations nondistressed, lung sounds clear to auscultation bilaterally Abdominal: Soft, nontender, nondistended, normal bowel sounds, no evidence of abdominal masses or pulsatile mass Back: Normal to inspection, no midline tenderness to palpation, straight leg raise negative bilaterally, bilateral thoracic paraspinal tenderness to palpation Extremities: Nontender, nonedematous, 2+ radial and PT pulses bilaterally symmetric Skin: Normal color no rash Neuro: 5/5 strength hip flexion, knee flexion, knee extension, dorsiflexion, plantarflexion, EHL. Sensation intact over all dermatomes of the lower extremities bilaterally, 2+ patellar and Achilles reflexes bilaterally symmetric, negative clonus bilaterally Test Results: None indicated Emergency Department Course and Treatment: Patient presented secondary to back pain. This started after a lifting injury, and physical exam seems consistent with a strain. Patient was treated with Toradol and Flexeril, and will be discharged with a course of Naprosyn and Flexeril. He was instructed on stretching rest ice and heat and follow-up with primary care. Disposition: Discharge Impression: 1. Thoracic strain This note was generated with [employer] dictation software. It may contain incorrect words, spelling, and punctuation that were not noted in review of the chart prior to signing ED Disposition - Plan for ED Patient: Disposition: Home or Assisted Living Chief Complaint: Back Diagnosis: Thoracic myofascial strain Instructions: ED Sprain Strain Lumbar Prescriptions: Naproxen [Naprosyn] 500 mg PO BID #14 tab Cyclobenzaprine [Flexeril] 10 mg PO TID PRN #20 tab PRN Reason: Muscle Spasm Referrals: Radha Torres SENIOR SALES DIRECTOR-C [Primary Care Provider] - 3-5 Days if not improving
[2018-03-18] MEDS: Ketorolac 15 MG/ML Vial IM (16:44)
--- NOTE | 2018-03-18 16:45 | ED.DCSUM_ITS ---
- ER Visit Summary Date of Service: 03/18/18 Chief Complaint: Back injury History of Present Illness: The patient is a 72 M presenting for evaluation secondary to a back injury. Patient reports that he was working on a flat tire on his snowblower today. This caused him to have to bend over and lifted a co uple of times. He reports that after he completed that task he had a gradual onset of back pain. He reports it is in his lower back, does not radiate. Is not associated with any sort of numbness or weakness or bowel or bladder incontinence. Denies any fevers recent injections or surgeries. Patient has not taken anything for the pain yet. Review of systems otherwise negative. Physical Examination: Vitals: Within normal limits General: Well-nourished well-developed no acute distress Head: Normocephalic atraumatic ENT: Moist mucous membranes Neck: Supple no JVD Cardiovascular: Heart regular rate and rhythm no murmurs Respiratory: Respirations nondistressed, lung sounds clear to auscultation bilaterally Abdominal: Soft, nontender, nondistended, normal bowel sounds, no evidence of abdominal masses or pulsatile mass Back: Normal to inspection, no midline tenderness to palpation, straight leg raise negative bilaterally, bilateral thoracic paraspinal tenderness to p alpation Extremities: Nontender, nonedematous, 2+ radial and PT pulses bilaterally symmetric Skin: Normal color no rash Neuro: 5/5 strength hip flexion, knee flexion, knee extension, dorsiflexion, kelsi ntarflexion, EHL. Sensation intact over all dermatomes of the lower extremities bilaterally, 2+ patellar and Achilles reflexes bilaterally symmetric, negative clonus bilaterally Test Results: None indicated Emergency Department Course and Treatment: Patient presented secondary to back pain. This started after a lifting injury, and physical exam seems consistent with a strain. Patient was treated with Toradol and Flexeril, and will be discharged with a course of Naprosyn and Flexeril. He was instructed on stretching rest ice and heat and follow-up with primary care. Disposition: Discharge Impression: 1. Thoracic strain This note was generated with [employer] dictation software. It may contain incorrect words, spelling, and punctuation that were not noted in review of the chart prior to signing ED Disposition - Plan for ED Patient: Disposition: Home or Assisted Living Chief Complaint: Back Diagnosis: Thoracic myofascial strain Instructions: ED Sprain Strain Lumbar Prescriptions: Naproxen [Naprosyn] 500 mg PO BID #14 tab Cyclobenzaprine [Flexeril] 10 mg PO TID PRN #20 tab PRN Reason: Muscle Spasm Referrals: Radha Torres SAVINGS TELLER-C [Primary Care Provider] - 3-5 Days if not improving
[2018-03-18 17:06] VITALS: BP 168/74; PULSE 68; RESP 18; O2SAT 98
--- NOTE | 2018-03-18 17:07 | ED.RN ---
NO REACTION AT INJECTION SITE.
== END 2018-03-18 17:07 | disposition home or self-care (01) ==
PROVIDERS: Emergency Provider Emergency Medicine; Family Provider Nurse Practitioner; PCP Nurse Practitioner
DX: S29.012A Strain of muscle and tendon of back wall of thorax, initial encounter (principal); X50.3XXA Overexertion from repetitive movements, initial encounter; Y93.89 Activity, other specified; Y92.9 Unspecified place or not applicable; I10 Essential (primary) hypertension; E11.9 Type 2 diabetes mellitus without complications; G20 Parkinson's disease; Z79.899 Other long term (current) drug therapy; Z79.84 Long term (current) use of oral hypoglycemic drugs
CPT/HCPCS: 96372; 99283

== ENCOUNTER 2019-07-20 12:09 | Emergency (ER) | payer MEDICARE, OTHER, SELFPAY ==
[2019-07-20 12:10] VITALS: BP 105/50; PULSE 56; RESP 20; TEMP 36.6; O2SAT 96; BMI 38.9
--- NOTE | 2019-07-20 12:23 | RAD_ITS ---
STUDY: X-RAY - RIGHT WRIST REASON FOR EXAM: Male, 74 years old. INJURY TO RT HAND and RIGHT WRIST FROM TIRE TODAY. LACERATION TO RIGHT THUMB POSTERIORLY AND SWELLING AND DISCOLORATION ACROSS TOP OF HAND INTO RIGHT WRIST. TECHNIQUE: 3 view(s) of the wrist were obtained. COMPARISON: None. FINDINGS: Normal visualized distal radius. There has been resection of the distal portion of the ulna. Normal radiocarpal articulation. Normal distal radioulnar articulation. Normal carpal bones. Normal carpal articulations. Normal carpometacarpal articulation of the thumb. Normal second through fifth carpometacarpal articulations. Normal visualized metacarpal bones. Soft tissue swelling. RAD/Wrist min 3 Views IMPRESSION: Prior resection of the distal portion of the ulna. Soft tissue swelling. Electronically Signed: Manuelito Mathews, at 13:17 EDT , Service support ,
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
[2019-07-20] MEDS: Diphth,Pertuss(Acell),Tet Vac 0.5 ML Vial IM (12:36)
[2019-07-20] MEDS: Morphine 4 MG/ML Syringe IM (12:41)
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
[2019-07-20 12:51] VITALS: PULSE 60; RESP 26; O2SAT 96
[2019-07-20 14:23] VITALS: BP 119/62; PULSE 75; RESP 18; O2SAT 95
== END 2019-07-20 14:39 | disposition home or self-care (01) ==
PROVIDERS: Emergency Provider Emergency Medicine; PCP Family Medicine
DX: S62.501A Fracture of unspecified phalanx of right thumb, initial encounter for closed fracture (principal); S61.011A Laceration without foreign body of right thumb without damage to nail, initial encounter; E11.9 Type 2 diabetes mellitus without complications; E03.9 Hypothyroidism, unspecified; G20 Parkinson's disease; W37.8XXA Explosion and rupture of other pressurized tire, pipe or hose, initial encounter; Z79.84 Long term (current) use of oral hypoglycemic drugs
CPT/HCPCS: 12001; 73110; 73130; 90471; 90715; 96374; 99285

== ENCOUNTER → 2021-06-11 | Outpatient (CLI) | payer MEDICARE, OTHER, SELFPAY ==
--- NOTE | 2021-06-11 15:47 | MRI_ITS ---
STUDY: MRI BRAIN WITH AND WITHOUT CONTRAST (ATTENTION INTERNAL AUDITORY CANALS - I.A.C.''s) REASON FOR EXAM: Male, 75 years old. Asymmetric hearing loss TECHNIQUE: Standardized multiplanar fat and water weighted pulse sequences were obtained. ml of Yes YES contrast material was administered intravenously for the contrast portion of the examination. COMPARISON: MRI of the brain and head CT dated January 09, 2018 FINDINGS: Normal bilateral temporal bones. Normal bilateral internal auditory canals. There is no demonstrated intracanalicular or cisternal vestibular schwannoma (acoustic neuroma). There is no enhancement of the bilateral VIIth or VIIIth cranial nerves. Normal bilateral cochlea, vestibules and semicircular canals. No visualized cerebellar pontine angle masses or cysts. There is mild cerebral atrophy with widening of the extra-axial spaces and ventricular dilatation. There are multiple white matter hyperintensities, distributed throughout the deep white matter tracts of the cerebral hemispheres, consistent with mild to moderate chronic white matter ischemic changes. Normal bilateral basal ganglia. Normal thalami. Normal flow voids within the major intracranial circulation suggesting patency by spin echo criteria. Normal venous enhancement. There is no enhancing intra-axial or extra-axial abnormality. There is no extra-axial fluid accumulation. Normal sella turcica, pituitary gland, infundibular stalk, optic chiasm and hypothalamus. Normal tectal plate and pineal gland. Normal midbrain, nik and medulla. Normal cerebellum. Normal basal cisterns. No demonstrated orbital abnormality, within the constraints of a routine brain study. Normal visualized paranasal sinuses. Normal calvarium and skull base. Normal visualized soft tissue structures. Normal visualized upper cervical spine. MRI/Brain W/WO Contrast IMPRESSION: 1. Normal unenhanced and enhanced MRI of the bilateral internal auditory canals (I.A.C''s). 2. Involutional changes of the brain, as described above. Electronically Signed: Nahum Godoy MD at 14:39 EDT ,
[2021-06-11 16:06] LABS: CREATININE FINGERSTICK 1.1 mg/dL (0.70-1.30); EGFR FINGERSTICK > 60.0000 mL/min (>60)
== END | disposition home or self-care (01) ==
PROVIDERS: PCP Family Medicine; Referring Provider Otolaryngology Otolaryngology/Facial Plastic Surgery; Visit Provider Otolaryngology Otolaryngology/Facial Plastic Surgery
DX: H91.8X9 Other specified hearing loss, unspecified ear (principal)
CPT/HCPCS: 70553; A9575

== ENCOUNTER 2021-12-02 12:51 | Emergency (ER) | payer MEDICARE, OTHER, SELFPAY ==
[2021-12-02 12:52] VITALS: BP 191/115; PULSE 84; RESP 16; TEMP 36.3; O2SAT 97; BMI 35.7
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
--- NOTE | 2021-12-02 13:35 | RAD_ITS ---
STUDY: X-RAY - LUMBAR SPINE REASON FOR EXAM: Male, 76 years old. Trauma Fell a few days ago, pain, hx of back issues TECHNIQUE: 3 view(s) of the lumbar spine were obtained. COMPARISON: X-ray the lumbar spine dated August 30, 2015 FINDINGS: Normal lumbar lordosis. There is a levoscoliosis of the lumbar spine. No visualized acute fracture. Mild compression deformity of the L3 vertebral body with mild loss of height. Moderate disc space narrowing is present at L3-L4 and L4-L5. Normal vertebral bodies and endplates. Normal disc space heights. The soft tissue structures are unremarkable. RAD/Lumbar Spine 2 or 3 Views IMPRESSION: 1. Degenerative changes of the spine, as detailed above. 2. Chronic appearing mild compression deformity of the L3 vertebral body. Electronically Signed: Nahum Godoy MD at 14:09 EDT ,
[2021-12-02 14:00] VITALS: BP 190/103; PULSE 91; RESP 15; O2SAT 99
[2021-12-02 15:28] VITALS: BP 142/79; PULSE 68; RESP 15; O2SAT 95
== END 2021-12-02 15:33 | disposition home or self-care (01) ==
PROVIDERS: Emergency Provider Emergency Medicine; PCP Family Medicine; Visit Provider Emergency Medicine
DX: S39.012A Strain of muscle, fascia and tendon of lower back, initial encounter (principal); Z87.891 Personal history of nicotine dependence; W19.XXXA Unspecified fall, initial encounter
CPT/HCPCS: 72100; 99282

== ENCOUNTER 2022-02-20 01:39 | Emergency (ER) | payer MEDICARE, OTHER, SELFPAY ==
[2022-02-20] VITALS (8 sets, daily range): BP systolic 127–157; BP diastolic 66–96; PULSE 65–104; RESP 18–29; TEMP 36.2–36.8; O2SAT 92–95; BMI 40.1
--- NOTE | 2022-02-20 02:01 | ED.VIS.DYS ---
HPI History of Present Illness Chief Complaint: Shortness of Breath Informant: patient Onset/Context/Timing Onset: Today Context: gradual Timing: Continuous Quality: Positive for Dyspnea on exertion Worsened by: Exertion Relieved by: Rest Associated Symptoms cough, subjective and chills; Negative for rhinorrhea, post nasal drip, ear pain, fever, sore throat, sweats, clear sputum, white sputum, yellow sputum or green sputum Chest Pain: Positive for None Narrative Narrative: Patient presents with shortness of breath that began tonight. Patient states it is gradually gotten worse. Patient states his breathing is worse with any exertion. Patient states he is having difficulty walking due to the breathing. Patient admits to some subjective chills. Patient admits to a cough but denies any sputum production. Patient states his breathing is better when he is able to rest. Patient denies any chest pain. Patient denies any nausea or vomiting. Patient does admit to some hematuria for the past month. Patient states this has been constant for the past month. [facility] Medical History (Updated 02/20/22 @ 05:[address] Hema Jin, ) Anxiety Asthma COPD (chronic obstructive pulmonary disease) Diabetes Former smoker Hyperlipidemia Hypertension Home Medications Ropinirole Hcl [Requip] 2 mg PO QHS restless legs 06/26/15 [History Last Taken 06/25/15] metformin 500 mg 24 hr tablet,extended release 500 mg PO DINNER diabetes 06/26/15 [History Last Taken 06/25/15] tamsulosin 0.4 mg capsule 0.8 mg PO QHS prostate 06/26/15 [History Last Taken 06/25/15] budesonide-formoterol HFA 80 mcg-4.5 mcg/actuation aerosol inhaler (Symbicort) 2 puff inhalation BID breathing 09/11/15 [History Last Taken Unknown] carbidopa 25 mg-levodopa 100 mg tablet 2 tab PO TIDAC parkinsons 09/11/15 [History Last Taken Unknown] levothyroxine 100 mcg tablet (Levoxyl) 125 mcg PO DAILY thyroid 09/11/15 [History Last Taken Unknown] tiotropium bromide 18 mcg capsule with inhalation device (Spiriva with HandiHaler) 1 puff inhalation DAILY breathing 09/11/15 [History Last Taken Unknown] albuterol sulfate 90 mcg/actuation aerosol inhaler (ProAir HFA) 1 puff inhalation Q6H PRN PRN breathing 01/09/18 [History Last Taken Unknown] citalopram 20 mg tablet 20 mg PO DAILY depression 01/09/18 [History Last Taken Unknown] empagliflozin 10 mg tablet (Jardiance) 10 mg PO DAILY diabetes 01/09/18 [History Last Taken Unknown] lisinopril 10 mg tablet (Zestril) 10 mg PO DAILY blood pressure 01/09/18 [History Last Taken Unknown] melatonin 3 mg tablet 3 mg PO QHS sleep 01/09/18 [History Last Taken Unknown] cyclobenzaprine 10 mg tablet 10 mg PO TID PRN Muscle Spasm #20 tabs 03/18/18 [Rx Last Taken Unknown] naproxen 500 mg tablet 500 mg PO BID #14 tabs 03/18/18 [Rx Last Taken Unknown] tramadol 50 mg tablet 50 mg PO Q6H PRN pain 3 days #12 tabs 12/02/21 [Rx Last Taken Unknown] cephalexin 500 mg capsule 500 mg PO Q6 #20 CAPSULES 02/20/22 [Rx Last Taken Unknown] Allergy/AdvReac Type Severity Reaction Status Date / Time aloe vera AdvReac Rash Verified 02/20/22 01:45 diclofenac AdvReac intolerance, Verified 02/20/22 01:45 leg edema Surgical History (Updated 02/20/22 @ 02:[address] Hema Jin DO) Hx of hand surgery Social History Smoking Status: Former smoker ROS ROS ED Constitutional Constitutional ED: Reports chills; Denies fever(s) Eyes Eyes: Denies blurry vision or change in vision ENT ENT ED: Denies rhinorrhea or sore throat Cardiovascular Cardiovascular: Denies chest pain or palpitations Respiratory/Chest Respiratory/Chest: Reports cough and dyspnea Gastrointestinal Gastrointestinal: Denies nausea or vomiting Genitourinary Genitourinary ED: Reports hematuria; Denies dysuria Musculoskeletal Musculoskeletal: Reports back pain; Denies neck pain Integumentary Denies abscess or rash Neurologic Neurologic: Denies headache(s) or weakness Allergic/Immunologic Allergic/Immunologic ED: Denies mouth swelling or urticaria EXAM Physical Exam Const Vital Signs: 02/20/22 01:40 02/20/22 02:05 02/20/22 01:44 Temperature 97.3 F L 98.2 F Temperature Source Temporal Temporal Pulse Rate 104 H 100 Respiratory Rate 28 H 29 H Respiratory Effort Short of Breath Respiratory Depth Shallow Respiratory Pattern Tachypnea Blood Pressure 140/73 H 127/82 H Blood Pressure Mean 95 97 Pulse Ox 94 92 Oxygen Delivery Method Room Air Room Air Room Air 02/20/22 02:44 02/20/22 03:44 02/20/22 04:00 Temperature 97.2 F L 97.6 F L 97.6 F L Temperature Source Temporal Temporal Temporal Pulse Rate 86 74 65 Respiratory Rate 18 25 H 23 H Respiratory Effort Respiratory Depth Respiratory Pattern Blood Pressure 133/70 H 154/96 H 157/66 H Blood Pressure Mean 91 115 96 Pulse Ox 93 93 95 Oxygen Delivery Method Room Air Room Air Room Air Positive well nourished, well developed and obese General Appearance ED: well developed and NAD Nutritional Appearance: obese HEENT Reports moist mucous membranes Neck supple, no meningeal signs and no JVD Resp normal respiratory effort Auscultation: diminished lung sounds diffuse Cardio regular rate, regular rhythm and no murmurs GI non-tender Auscultation: normoactive bowel sounds Palpation: soft; Negative for guarding Extremity normal to inspection General Extremety ED: Yes edema; Negative for tenderness General Extremity: edema bilateral lower extremity Details: moderate Neuro oriented x3, CN's II-XII intact bilaterally and no sensory deficits noted Sensorium / Orientation: alert Motor Exam: strength 5/5 throughout Psych mental status grossly normal Skin no rashes or lesions noted MDM MDM MDM Narrative Medical decision making narrative: EKG was obtained. On my interpretation, it showed a normal sinus rhythm with a rate of 87. [place] interval, QRS interval, and QTc intervals were all normal. [place] was normal. There are no acute ST or T wave changes. PA and lateral chest x-ray was obtained. There are 2 views. On my interpretation, lung shah are clear. There is normal cardiac silhouette. Bony thorax osteopenia. There are multilevel compression fractures of undetermined age. There is no acute process noted. Radiologist also interpreted the x-ray and agrees. CBC shows a mild anemia with a hemoglobin of 11.8 and hematocrit 37.9. PT was 16.3 with an INR of 1.4. PTT is 28.2. Comprehensive metabolic profile showed a slightly elevated sodium of 146 and a slightly elevated chloride of 109. BUN was 23 and creatinine was 1.09. Glucose was 202. Total bilirubin was 1.5. Alk phos was 145. AST and ALT were normal. Lactate was normal. BNP was only slightly elevated at 214.7. Initial high-sensitivity troponin was normal at 51. Urinalysis was obtained and showed a leukocyte esterases of 500 with 5-10 white blood cells and 3+ bacteria. Urine culture was ordered. There were positive nitrites. Urine culture was ordered. Patient was given a dose of Rocephin here. 2-hour repeat high-sensitivity troponin was also normal at 51. Patient was advised of his findings. I do not feel this is cardiac in nature. Patient was given a prescription for Keflex. Patient was instructed to take Tylenol or ibuprofen as needed for pain or fevers. Patient was instructed to follow-up with his primary care physician in 5 to 7 days. Patient understood and was agreeable with the plan. All questions were answered. Lab Data Attestation: I reviewed the patient's lab results. Labs: Laboratory Results - last 24 hr 02/20/22 02/20/22 02/20/22 02:27 02:27 02:27 WBC 4.8 RBC 3.55 L Hgb 11.8 L Hct 37.9 L MCV 106.8 H MCH 33.2 H MCHC 31.1 L RDW Std Deviation 57.2 H RDW Coeff of [place] 14.6 Plt Count 119 L MPV 9.2 Immature Gran % (Auto) 0.400 Neut % (Auto) 70.0 Lymph % (Auto) 16.0 L [place] % (Auto) 10.3 H Eos % (Auto) 2.9 Baso % (Auto) 0.4 Absolute Neuts (auto) 3.3 Absolute Lymphs (auto) 0.76 L Nucleated RBC % 0 PT 16.3 H INR 1.4 APTT 28.2 Sodium 146 H Potassium 4.4 Chloride 109 H Carbon Dioxide 35.0 H Anion Gap 2 L BUN 23 H Creatinine 1.09 Estim Creat Clear Calc 48.59 Est GFR (MDRD) Af Amer 84 Est GFR (MDRD) Non-Af 69 BUN/Creatinine Ratio 21.1 H Glucose 202 H Lactic Acid Calcium 8.6 Total Bilirubin 1.50 H AST 31 ALT 29 Alkaline Phosphatase 145 H Troponin I High Sens 51 B-Natriuretic Peptide Total Protein 6.5 Albumin 2.4 L Globulin 4.1 Albumin/Globulin Ratio 0.6 L Urine Color Urine Clarity Urine pH Ur Specific [place] Urine Protein Urine Glucose (UA) Urine Ketones Urine Occult Blood Urine Nitrite Urine Bilirubin Urine Urobilinogen Ur Leukocyte Esterase Urine RBC Urine WBC Ur Squamous Epith Cells Calcium Oxalate Crystal Urine Bacteria Fine Granular Casts Urine Mucus 02/20/22 02/20/22 02/20/22 02:27 02:27 04:17 WBC RBC Hgb Hct MCV MCH MCHC RDW Std Deviation RDW Coeff of [place] Plt Count MPV Immature Gran % (Auto) Neut % (Auto) Lymph % (Auto) [place] % (Auto) Eos % (Auto) Baso % (Auto) Absolute Neuts (auto) Absolute Lymphs (auto) Nucleated RBC % PT INR APTT Sodium Potassium Chloride Carbon Dioxide Anion Gap BUN Creatinine Estim Creat Clear Calc Est GFR (MDRD) Af Amer Est GFR (MDRD) Non-Af BUN/Creatinine Ratio Glucose Lactic Acid 1.6 Calcium Total Bilirubin AST ALT Alkaline Phosphatase Troponin I High Sens B-Natriuretic Peptide 214.7 H Total Protein Albumin Globulin Albumin/Globulin Ratio Urine Color Yellow Urine Clarity Clear Urine pH 7.0 Ur Specific [place] 1.010 Urine Protein 500 H Urine Glucose (UA) Normal Urine Ketones 5 H Urine Occult Blood 10 H Urine Nitrite Positive H Urine Bilirubin 3 H Urine Urobilinogen 12 H Ur Leukocyte Esterase 500 H Urine RBC 0-5 SEEN Urine WBC 5-10 SEEN Ur Squamous Epith Cells 0-5 SEEN Calcium Oxalate Crystal 1+ Urine Bacteria 3+ Fine Granular Casts 0-5 SEEN Urine Mucus 0 SEEN 02/20/22 04:50 WBC RBC Hgb Hct MCV MCH MCHC RDW Std Deviation RDW Coeff of [place] Plt Count MPV Immature Gran % (Auto) Neut % (Auto) Lymph % (Auto) [place] % (Auto) Eos % (Auto) Baso % (Auto) Absolute Neuts (auto) Absolute Lymphs (auto) Nucleated RBC % PT INR APTT Sodium Potassium Chloride Carbon Dioxide Anion Gap BUN Creatinine Estim Creat Clear Calc Est GFR (MDRD) Af Amer Est GFR (MDRD) Non-Af BUN/Creatinine Ratio Glucose Lactic Acid Calcium Total Bilirubin AST ALT Alkaline Phosphatase Troponin I High Sens 51 B-Natriuretic Peptide Total Protein Albumin Globulin Albumin/Globulin Ratio Urine Color Urine Clarity Urine pH Ur Specific [place] Urine Protein Urine Glucose (UA) Urine Ketones Urine Occult Blood Urine Nitrite Urine Bilirubin Urine Urobilinogen Ur Leukocyte Esterase Urine RBC Urine WBC Ur Squamous Epith Cells Calcium Oxalate Crystal Urine Bacteria Fine Granular Casts Urine Mucus Radiography Diagnostic Testing: Clinical Impression(s) from Imaging Studies Chest X-Ray 02/20/22 02:05 IMPRESSION: There is demineralization of the osseous structures. Multilevel compression fractures in the mid and lower thoracic spine of undetermined age. Further evaluation by MRI would be helpful. Electronically Signed: James Faustin MD at 3:18 EST , EKG Initial EKG: Attestation: I personally reviewed and interpreted this EKG as follows: Interpretation: Sinus Rhythm (87) and No Acute Injury Pattern Prior EKG tracings: available for review Prior: Unchanged (01/09/2018) Discharge Plan Triage Chief Complaint: Shortness of Breath ED Provider: Hema Jin Dx/Rx/DC Orders Clinical Impression: Urinary tract infection, Diabetes mellitus, Dyspnea Instructions: ED Dyspnea, ED Bladder Infection, Male (Adult) Prescriptions: New cephalexin [cephalexin] 500 mg capsule 500 mg PO Q6 Qty: 20 0RF No Action tamsulosin 0.4 MG capsule 0.8 mg PO QHS Label Comments: prostate metformin 500 MG tablet,ER sara.retention 24 hr 500 mg PO DINNER Label Comments: diabetic medication Ropinirole Hcl [Requip] 1 MG tablet 2 mg PO QHS Label Comments: restless leg levothyroxine [Levoxyl] 100 MCG tablet 125 mcg PO DAILY tiotropium bromide [Spiriva with HandiHaler] 1 PUFF inhaler 1 puff inhalation DAILY budesonide-formoterol [Symbicort] 1 INHALER inhaler 2 puff inhalation BID carbidopa-levodopa 1 TABLET tablet 2 tab PO TIDAC melatonin 3 MG tablet 3 mg PO QHS citalopram 20 MG tablet 20 mg PO DAILY lisinopril [Zestril] 10 MG tablet 10 mg PO DAILY albuterol sulfate [ProAir HFA] 1 PUFF inhaler 1 puff inhalation Q6H PRN PRN (Reason: breathing) empagliflozin [Jardiance] 10 MG tablet 10 mg PO DAILY cyclobenzaprine 10 MG tablet 10 mg PO TID PRN (Reason: Muscle Spasm) Qty: 20 0RF naproxen 500 MG tablet 500 mg PO BID Qty: 14 0RF tramadol 50 mg tablet 50 mg PO Q6H PRN (Reason: pain) 3 Days Qty: 12 0RF Primary Care Provider: Edis Rogers Referrals: Edis Rogers MD [Primary Care Provider] - 3-5 Days Disposition Disposition: Home, Self Care
--- NOTE | 2022-02-20 02:05 | EKG12_ITS ---
Test Reason : SOB Blood Pressure : / mmHG Vent. Rate : 087 BPM Atrial Rate : 087 BPM P-R Int : 144 ms QRS Dur : 080 ms QT Int : 360 ms P-R-T Axes : -09 -02 071 degrees QTc Int : 433 ms Sinus rhythm with Premature atrial complexes Low voltage QRS Borderline ECG Confirmed by VIRAJ JEAN BAPTISTE, JOSE ALEJANDRO ([id number]), staff editor RABIA CORREA ([id number]) on 02/22/2022 6:21:55 AM Referred By: Confirmed By:ZBIGNIEW CALI MD
--- NOTE | 2022-02-20 02:05 | RAD_ITS ---
STUDY: X-RAY CHEST REASON FOR EXAM: Male, 76 years old. Dyspnea TECHNIQUE: Frontal and lateral views of the chest. COMPARISON: None. FINDINGS: The lungs are clear and expanded. There is no demonstrated pleural abnormality. Normal size heart. Normal mediastinum and kenny. Normal visualized pulmonary arteries. Normal visualized aortic arch and descending thoracic aorta. There is demineralization of the osseous structures. Multilevel compression fractures in the mid and lower thoracic spine. There is degenerative osteoarthritis of the bilateral shoulders. There is no demonstrated abnormality of the visualized soft tissue structures of the upper abdomen. RAD/Chest PA and Lateral IMPRESSION: There is demineralization of the osseous structures. Multilevel compression fractures in the mid and lower thoracic spine of undetermined age. Further evaluation by MRI would be helpful. Electronically Signed: James Faustin MD at 3:18 EST ,
[2022-02-20 02:33] LABS: Absolute Lymphocyte Count 0.76 X10^3/uL (0.83-4.51); Absolute Neutrophil Count 3.3 X10^3/uL (2.0-7.7); Basophil# 0.02 X10^3/uL; Basophil% 0.4 % (0-1); Eosinophil# 0.14 X10^3/uL; Eosinophils% 2.9 % (0-5); Hematocrit 37.9 % (40-54); Hemoglobin 11.8 g/dL (13.0-16.5); Lymphocyte # 0.76 X10^3/ul (0.83-4.51); Mean Corp Hgb Conc 31.1 g/dL (32-36); Mean Corpuscular Hgb 33.2 pg (27.0-32.0); Mean Corpuscular Volume 106.8 fL (80-94); Mean Platelet Vol. 9.2 fl (6.2-12.0); Monocyte# 0.49 X10^3/uL; Monocyte% 10.3 % (0-10); NRBC Flagged by Analyzer 0 % (0-5); Neutrophil # 3.32 X10^3/uL (2.7-7.7); Platelet Count 119 K/mm3 (150-450); RBC Distribution Width CV 14.6 % (11.6-14.6); RBC Distribution Width SD 57.2 fl (35.1-43.9); Red Blood Count 3.55 M/mm3 (4.6-6.2); White Blood Count 4.8 K/mm3 (4.4-11.0)
[2022-02-20 02:43] LABS: International Normalized Ratio 1.4; Prothrombin Time (Protime)PT. 16.3 SECONDS (11.7-14.9)
[2022-02-20 02:44] LABS: Partial Thromboplast Time 28.2 Seconds (24.1-36.2)
[2022-02-20 02:50] LABS: BNP,B-Type NATRIURETIC PEPTIDE 214.7 pg/mL (0-100)
[2022-02-20 02:55] LABS: ALB/GLOB Ratio 0.6 RATIO (0.9-2.4); AST(SGOT) 31 U/L (15-37); Alanine Aminotransfer ALT/SGPT 29 U/L (16-61); Albumin, Serum 2.4 g/dL (3.2-5.0); Alkaline Phosphatase 145 U/L (45-117); Anion Gap 2 (5-15); BUN 23 mg/dL (7-18); BUN/Creat Ratio 21.1 RATIO (10-20); Calcium,Total 8.6 mg/dL (8.5-10.1); Chloride 109 mmol/L (98-107); Creatinine, Serum 1.09 mg/dL (0.70-1.30); EST Glomerular Filtration Rate 69 mL/min (>60); Est Glom Filt Rate - Afr Amer 84 mL/min (>60); Estimated Creatinine Clearance 48.59 ml/min; Globulin 4.1 g/dL (2.2-4.2); Glucose 202 mg/dL (74-106); Lactic Acid 1.6 mmol/L (0.4-1.9); Potassium 4.4 mmol/L (3.5-5.1); Protein, Total 6.5 g/dL (6.4-8.2); Sodium Level 146 mmol/L (136-145); Troponin-I HS (w/2H Reflex) 51 pg/mL (3.0-78.0)
[2022-02-20 04:21] LABS: Mucous, Urine 0 SEEN /hpf (<or=2+)
[2022-02-20 04:22] LABS: Color, Urine Yellow (Yellow); Glucose, Dipstick Normal (Normal); Ketone-Dipstick 5 mg/dl (Negative); Leukocyte Esterase-Dipstick 500 /ul (Negative); Nitrite-Dipstick Positive (Negative); Occult Blood-Urine 10 /ul (Negative); Protein-Dipstick 500 mg/dl (Negative); Urine Clarity Clear (Clear); Urine Urobilinogen 12 mg/dl (Normal)
[2022-02-20 04:27] LABS: Urine Bilirubin Dipstick 3 mg/dL (Negative)
[2022-02-20 04:28] LABS: Bacteria 3+ /hpf (None Seen); Fine Granular Cast- Urine 0-5 SEEN /lpf (0-5); Red Blood Cells-Urine 0-5 SEEN /hpf (0-5); Squamous Epithelial Cells - UA 0-5 SEEN /hpf (0-5); White Blood Cells 5-10 SEEN /hpf (0-5)
[2022-02-20 04:29] LABS: Calcium Oxalate Crystals Ur 1+ /hpf (<or=2+)
[2022-02-20 04:31] LABS: Reflex Troponin-HS? (from REC) Y
[2022-02-20] MEDS: Ceftriaxone 1 GM/50 ML BAG IV (04:54)
[2022-02-20 05:12] LABS: Troponin-I HS 51 pg/mL (3.0-78.0)
--- NOTE | 2022-02-20 05:54 | ED.RN ---
Pt ambulated to bathroom using a walker with a pulse ox. Pt O2 dropped from 92% to 87% on RA. Pt stated feeling short of breath slightly. Dr. Izquierdo notified, alexa ordered before d/c.
[2022-02-20] MEDS: Ipratropium/Albuterol Sulfate 3 ML AMPUL.NEB INHALATION (06:21)
== END 2022-02-20 06:21 | disposition home or self-care (01) ==
PROVIDERS: Emergency Provider Emergency Medicine; PCP Family Medicine; Visit Provider Emergency Medicine
DX: N39.0 Urinary tract infection, site not specified (principal); J44.9 Chronic obstructive pulmonary disease, unspecified; E11.9 Type 2 diabetes mellitus without complications; E78.5 Hyperlipidemia, unspecified; R06.02 Shortness of breath; E66.9 Obesity, unspecified; I10 Essential (primary) hypertension; Z87.891 Personal history of nicotine dependence
CPT/HCPCS: 71046; 80053; 81001; 83605; 83880; 84484; 85025; 85610; 85730; 87086; 87088; 87428; 93005; 96365; 99285; A4216

== ENCOUNTER 2022-03-06 17:04 | Inpatient (IN) | payer MEDICARE, OTHER, SELFPAY ==
[2022-03-06] VITALS (15 sets, daily range): BP systolic 99–139; BP diastolic 42–79; PULSE 60–99; RESP 13–22; TEMP 35.9–36.6; O2SAT 82–98; BMI 42.3; BMI 32.3
--- NOTE | 2022-03-06 17:42 | CT_ITS ---
STUDY: CT BRAIN WITHOUT CONTRAST REASON FOR EXAM: Male, 76 years old. Confusion RADIATION DOSAGE (If Supplied By Facility): CTDIvol = ( 44.99 ) mGy, DLP = ( 897.35 ) mGycm TECHNIQUE: Transaxial CT imaging of the brain was performed without administration of intravenous contrast material. Individualized dose optimization techniques were used for this CT. COMPARISON: MRI June 11, 2021 FINDINGS: There is right frontal soft tissue swelling. Normal calvarium. There is mild cerebral atrophy with widening of the extra-axial spaces and ventricular dilatation. There are areas of decreased attenuation within the white matter tracts of the supratentorial brain, consistent with microvascular disease changes. Normal basal ganglia and thalami. Normal brainstem. Normal cerebellum. There is no intracranial hemorrhage. There are no findings of an acute ischemic infarction. Normal visualized paranasal sinuses. CT/Brain/Head without Contrast IMPRESSION: Chronic involutional changes of the brain. Electronically Signed: Eamon Bang MD at 18:37 EST ,
--- NOTE | 2022-03-06 17:42 | CT_ITS ---
STUDY: CT ABDOMEN AND PELVIS WITHOUT CONTRAST REASON FOR EXAM: Male, 76 years old. Abdominal distention RADIATION DOSAGE (If Supplied By Facility): CTDIvol = ( 22.03 ) mGy, DLP = ( 1425.70 ) mGycm TECHNIQUE: Transaxial images were obtained from the dome of the diaphragm to the symphysis pubis without oral contrast, and without intravenous contrast. Sagittal and coronal images were reconstructed. Individualized dose optimization techniques were used for this CT. COMPARISON: None. FINDINGS: There are bilateral lower lung airspace increased opacities. There is moderate right pleural effusion. The visualized portions of the heart are within normal limits. There is a diffuse contour abnormality of the liver consistent with cirrhotic changes. Normal gallbladder and extrahepatic biliary system. There are multiple benign calcified granulomata of the spleen. Normal pancreas. Normal bilateral adrenal glands. Normal right kidney. Normal left kidney. Normal visualized stomach. Normal small intestine. There is wall thickening of the right colon. There is non-visualization of the appendix. There is diffuse atherosclerotic calcification of the abdominal aorta, without a demonstrated aneurysm. Normal inferior vena cava. Normal retroperitoneum. Normal urinary bladder. There are prostatic calcifications. There is large volume ascites in the abdomen and pelvis. Normal abdominal wall. There is degenerative change of the spine. There are compression fractures of the thoracic spine. CT/Abdomen/Pelvis without Cont IMPRESSION: Cirrhotic liver. Severe ascites. Wall thickening of the right colon suggesting focal colitis versus mass. No obstruction. Electronically Signed: Eamon Bang MD at 18:51 EST ,
--- NOTE | 2022-03-06 17:42 | EKG12_ITS ---
Test Reason : CONFUSON Blood Pressure : / mmHG Vent. Rate : 091 BPM Atrial Rate : 091 BPM P-R Int : 144 ms QRS Dur : 090 ms QT Int : 380 ms P-R-T Axes : 007 007 085 degrees QTc Int : 467 ms Normal sinus rhythm Low voltage QRS Cannot rule out Anterior infarct , age undetermined Abnormal ECG Confirmed by VIRAJ JEAN BAPTISTE, JOSE ALEJANDRO ([id number]), purchase request editor RABIA CORREA ([id number]) on 03/07/2022 1:40:50 PM Referred By: JAYESH Confirmed By:ZBIGNIEW CALI MD
--- NOTE | 2022-03-06 17:45 | EDS_ITS ---
HPI History of Present Illness Chief Complaint: Shortness of Breath Informant: family Onset/Context/Timing Onset: Today Narrative Narrative: Patient brought in via EMS secondary to shortness of breath and confusion. Daughter is at bedside. She states that she lives with her father. She works third shift and patient was still asleep when she got home this morning. When she checked on him this afternoon he had not been up today. Reportedly his pulse ox was 53% on room air. He has a history of COPD and asthma but does not wear home oxygen. Daughter states that he seem to be his normal self yesterday. Patient was seen in the emergency room earlier this month and diagnosed with a UTI. Daughter believes he completed his antibiotic course. She states he was supposed to see his doctor a few days ago but canceled that appointment. She is not sure why he canceled the appointment. [facility] Medical History Anxiety Asthma COPD (chronic obstructive pulmonary disease) Diabetes Former smoker Hyperlipidemia Hypertension Parkinsonian features Home Medications metformin 500 mg 24 hr tablet,extended release 500 mg PO DINNER diabetes 06/26/15 [History Last Taken 06/25/15] tamsulosin 0.4 mg capsule 0.8 mg PO QHS prostate 06/26/15 [History Last Taken 06/25/15] carbidopa 25 mg-levodopa 100 mg tablet 2 tab PO TIDAC parkinsons 09/11/15 [History Last Taken Unknown] empagliflozin 10 mg tablet (Jardiance) 10 mg PO DAILY diabetes 01/09/18 [History Last Taken Unknown] lisinopril 10 mg tablet (Zestril) 10 mg PO DAILY blood pressure 01/09/18 [History Last Taken Unknown] tramadol 50 mg tablet 50 mg PO Q6H PRN pain 3 days #12 tabs 12/02/21 [Rx Last Taken Unknown] levothyroxine 125 mcg tablet (Levoxyl) 125 mcg PO DAILY THYROID 03/06/22 [History Last Taken Unknown] ropinirole 2 mg tablet 2 mg PO QHS RESTLESS LEGS 03/06/22 [History Last Taken Unknown] trazodone 50 mg tablet 30 mg PO DAILY SLEEP 03/06/22 [History Last Taken Unknown] Allergy/AdvReac Type Severity Reaction Status Date / Time aloe vera AdvReac Rash Verified 03/06/22 17:15 diclofenac AdvReac intolerance, Verified 03/06/22 17:15 leg edema Surgical History Hx of hand surgery Social History Smoking Status: Former smoker ROS ROS ED ROS Narrative Patient resting with eyes closed. Will open eyes to sternal rub only. Not answering questions. History obtained per daughter at bedside. Review of Systems ROS Unobtainable: due to mental status EXAM Physical Exam Const Vital Signs: 03/06/22 17:05 03/06/22 17:09 03/06/22 17:10 Temperature 96.6 F L 96.6 F L Temperature Source Temporal Temporal Pulse Rate 93 86 Respiratory Rate 18 22 H Respiratory Effort Respiratory Pattern Blood Pressure 124/62 H 124/62 H Blood Pressure Mean 82 82 Pulse Ox 82 82 94 Oxygen Delivery Method Room Air Room Air Nasal Cannula Oxygen Flow Rate (L/min) 6 Fraction of Inspired Oxygen (FIO2) 03/06/22 17:12 03/06/22 18:22 03/06/22 18:25 Temperature 97.7 F L Temperature Source Temporal Pulse Rate 94 90 Respiratory Rate 18 18 Respiratory Effort Short of Breath Respiratory Pattern Tachypnea Normal Blood Pressure 130/77 H Blood Pressure Mean 94 Pulse Ox 94 95 Oxygen Delivery Method Nasal Cannula Oxygen Flow Rate (L/min) 5 Fraction of Inspired Oxygen (FIO2) 40 03/06/22 19:07 Temperature 97.5 F L Temperature Source Core Pulse Rate 94 Respiratory Rate 17 Respiratory Effort Respiratory Pattern Blood Pressure 139/63 H Blood Pressure Mean 88 Pulse Ox 98 Oxygen Delivery Method Bi-pap Oxygen Flow Rate (L/min) Fraction of Inspired Oxygen (FIO2) Positive well nourished and well developed General Appearance ED: well developed HEENT Reports moist mucous membranes Eyes Eyes Narrative: Periorbital edema. Chest Wall inspection of chest normal and palpation of chest normal Resp normal respiratory effort and clear to auscultation bilaterally Cardio regular rate and regular rhythm GI GI Narrative: Abdomen firm and distended. Mild lower abdominal tenderness to palpation. Extremity Extremity Narrative: 3+ pitting edema to the lower extremities. Neuro Neuro Narrative: Rest with eyes closed. Opens eyes to sternal rub. Will spontaneously move all 4 extremities. MDM MDM MDM Narrative Medical decision making narrative: Patient placed on cardiac tech. Patient sent for CT scan of the head as well as abdomen and pelvis. Chest x-ray obtained. Lab work and urinalysis ordered. ABG obtained. Lab Data Attestation: I reviewed the patient's lab results. Labs: Laboratory Results - last 24 hr 03/06/22 03/06/22 03/06/22 17:10 17:10 17:10 WBC 9.3 RBC 4.09 L Hgb 13.4 Hct 43.7 MCV 106.8 H MCH 32.8 H MCHC 30.7 L RDW Std Deviation 63.7 H RDW Coeff of Jean Claude 16.3 H Plt Count 181 MPV 9.2 Immature Gran % (Auto) 0.900 Neut % (Auto) 61.3 Lymph % (Auto) 25.0 Lawrence % (Auto) 11.5 H Eos % (Auto) 0.8 Baso % (Auto) 0.5 Absolute Neuts (auto) 5.7 Absolute Lymphs (auto) 2.33 Nucleated RBC % 0.2 Sodium 142 Potassium 4.6 Chloride 107 Carbon Dioxide 33.0 H Anion Gap 2 L BUN 46 H Creatinine 2.35 H Estim Creat Clear Calc 22.54 Est GFR (MDRD) Af Amer 35 L Est GFR (MDRD) Non-Af 29 L BUN/Creatinine Ratio 19.6 Glucose 149 H Lactic Acid 2.5 H* Calcium 8.4 L Total Bilirubin 1.40 H Direct Bilirubin 0.60 H AST 54 H ALT 27 Alkaline Phosphatase 125 H Ammonia Troponin I High Sens 3990 H* B-Natriuretic Peptide Total Protein 7.2 Albumin 2.6 L Globulin 4.6 H Lipase 339 Urine Color Urine Clarity Urine pH Ur Specific [place] Urine Protein Urine Glucose (UA) Urine Ketones Urine Occult Blood Urine Nitrite Urine Bilirubin Urine Urobilinogen Ur Leukocyte Esterase Urine RBC Urine WBC Ur Squamous Epith Cells Urine Bacteria Urine Mucus 03/06/22 03/06/22 03/06/22 17:10 17:55 18:45 WBC RBC Hgb Hct MCV MCH MCHC RDW Std Deviation RDW Coeff of Jean Claude Plt Count MPV Immature Gran % (Auto) Neut % (Auto) Lymph % (Auto) Lawrence % (Auto) Eos % (Auto) Baso % (Auto) Absolute Neuts (auto) Absolute Lymphs (auto) Nucleated RBC % Sodium Potassium Chloride Carbon Dioxide Anion Gap BUN Creatinine Estim Creat Clear Calc Est GFR (MDRD) Af Amer Est GFR (MDRD) Non-Af BUN/Creatinine Ratio Glucose Lactic Acid Calcium Total Bilirubin Direct Bilirubin AST ALT Alkaline Phosphatase Ammonia 33.0 H Troponin I High Sens B-Natriuretic Peptide 1742.8 H Total Protein Albumin Globulin Lipase Urine Color Jill Urine Clarity Clear Urine pH 5.0 Ur Specific [place] 1.025 Urine Protein 100 H Urine Glucose (UA) Normal Urine Ketones 5 H Urine Occult Blood 10 H Urine Nitrite Negative Urine Bilirubin 3 H Urine Urobilinogen 4 H Ur Leukocyte Esterase 25 H Urine RBC 0 SEEN Urine WBC 0-5 SEEN Ur Squamous Epith Cells 0 SEEN Urine Bacteria RARE Urine Mucus 0 SEEN ABG Data ABG results: ABG 03/06/22 18:02 Specimen Type ART Sample Site L Radial pH 7.23 L Bicarbonate Actual 35.1 H Total CO2 38 Base Excess 8 H O2 Saturation 97 ABG pCO2 84.8 H* ABG pO2 109 H Jonah Test Positive O2 Delivery Device Cannula Liter Flow 5.0 Crit Call To/Read Back Yes Blood Gas Notified Whom padgett Radiography Diagnostic Testing: Clinical Impression(s) from Imaging Studies Abdomen/Pelvis CT 03/06/22 17:42 IMPRESSION: Cirrhotic liver. Severe ascites. Wall thickening of the right colon suggesting focal colitis versus mass. No obstruction. Electronically Signed: Eamon Bang MD at 18:51 EST Reading Location ID and State: [facility] / [place] , Service support , Brain CT 03/06/22 17:42 IMPRESSION: Chronic involutional changes of the brain. Electronically Signed: Eamon Bang MD at 18:37 EST , Chest X-Ray 03/06/22 18:18 IMPRESSION: Bilateral edema or pneumonia. Right pleural effusion Electronically Signed: Eamon Bang MD at 18:46 EST , EKG Initial EKG: Attestation: I personally reviewed and interpreted this EKG as follows: Interpretation: Sinus Rhythm (Sinus at 91 with no acute ischemia.) Treatment and Re-Evaluation Narrative: EKG reveals no acute ischemia. ABG reveals a pH of 7.23, PCO2 of 84.8, PO2 of 109, sat of 97% on 5 L nasal cannula. At the time this was reported I asked respiratory to place the patient on BiPAP. CT scan of the head reveals chronic involutional changes with no acute findings. CT scan of the abdomen pelvis reveals cirrhotic liver and severe ascites. There is wall thickening in the right colon. Right pleural effusion is noted. Portable chest x-ray per my interpretation reveals bilateral pleural effusions with concern for infiltrate of the right base. Radiology interpretation is reviewed. CBC reveals normal white count at 9.3 with no left shift. Chemistry studies reveal a BUN of 46 and and creatinine of 2.35. This is compared to a creatinine of 1.09 on February 20 of this year. Lactic acid is slightly elevated at 2.5. Total bilirubin is 1.4 and direct bilirubin 0.6. AST is slightly elevated at 54 and ALT is normal at 27. Troponin is elevated at 3990. BNP is elevated at 1700. Ammonia level is 33. Urinalysis was obtained after placement of a Valle catheter. This reveals no sign of acute infection. On repeat evaluation patient is resting comfortably. His BiPAP is on and he is only on 30% FiO2. He is more alert and able to nod to answer questions at this time. Test results were discussed extensively with daughter at bedside. At this time he has been given a dose of IV Unasyn as I am concerned he has aspiration pneumonia. He has been given gentle IV fluids given his worsened renal function. I will speak with hospitalist regarding admission. Discharge Plan Triage Chief Complaint: Shortness of Breath Other Complaint: General Illness ED Provider: Maria L Padgett Dx/Rx/DC Orders Clinical Impression: Encephalopathy, Elevated troponin, Cirrhosis, Ascites, CO2 retention Prescriptions: No Action tamsulosin 0.4 MG capsule 0.8 mg PO QHS metformin 500 MG tablet,ER sara.retention 24 hr 500 mg PO DINNER carbidopa-levodopa 1 TABLET tablet 2 tab PO TIDAC lisinopril [Zestril] 10 MG tablet 10 mg PO DAILY Jardiance 10 MG tablet 10 mg PO DAILY tramadol 50 mg tablet 50 mg PO Q6H PRN (Reason: pain) 3 Days Qty: 12 0RF trazodone 50 mg tablet 30 mg PO DAILY ropinirole 2 mg tablet 2 mg PO QHS levothyroxine [Levoxyl] 125 mcg tablet 125 mcg PO DAILY Primary Care Provider: Edis Rogers Referrals: Edis Rogers MD [Primary Care Provider] - Disposition Disposition: Acute Care Hospital [facility]
[2022-03-06 17:59] LABS: Absolute Lymphocyte Count 2.33 X10^3/uL (0.83-4.51); Absolute Neutrophil Count 5.7 X10^3/uL (2.0-7.7); Basophil# 0.05 X10^3/uL; Basophil% 0.5 % (0-1); Eosinophil# 0.07 X10^3/uL; Eosinophils% 0.8 % (0-5); Hematocrit 43.7 % (40-54); Hemoglobin 13.4 g/dL (13.0-16.5); Lymphocyte # 2.33 X10^3/ul (0.83-4.51); Mean Corp Hgb Conc 30.7 g/dL (32-36); Mean Corpuscular Hgb 32.8 pg (27.0-32.0); Mean Corpuscular Volume 106.8 fL (80-94); Mean Platelet Vol. 9.2 fl (6.2-12.0); Monocyte# 1.07 X10^3/uL; Monocyte% 11.5 % (0-10); NRBC Flagged by Analyzer 0.2 % (0-5); Neutrophil # 5.73 X10^3/uL (2.7-7.7); Neutrophil % 61.3 % (47-70); Platelet Count 181 K/mm3 (150-450); RBC Distribution Width CV 16.3 % (11.6-14.6); RBC Distribution Width SD 63.7 fl (35.1-43.9); Red Blood Count 4.09 M/mm3 (4.6-6.2); White Blood Count 9.3 K/mm3 (4.4-11.0)
[2022-03-06 18:11] LABS: Allen Test Positive; Base Excess 8 mmol/L (-2 to +2); Bicarbonate 35.1 mmol/L (22-26); Blood Gas Specimen Type ART; O2 Delivery Device Cannula; PO2 109 mmHG (75-100); SITE L Radial; SO2 97 % (95-99); Total Carbon Dioxide 38 mmol/L; pCO2 84.8 mmHg (35-45); pH 7.23 (7.35-7.45)
--- NOTE | 2022-03-06 18:18 | RAD_ITS ---
STUDY: X-RAY CHEST REASON FOR EXAM: Male, 76 years old. SOB TECHNIQUE: Single AP portable view of the chest. COMPARISON: February 20, 2022 FINDINGS: There are monitoring devices. There are bilateral mid and lower lung increased opacities. There is moderate right pleural effusion. Normal size heart. Normal mediastinum and kenny. Normal visualized pulmonary arteries. Normal visualized aortic arch and descending thoracic aorta. Normal visualized thoracic spine. Normal visualized ribs, clavicles, and shoulders. There is no demonstrated abnormality of the visualized soft tissue structures of the upper abdomen. RAD/Chest 1 View (Portable) IMPRESSION: Bilateral edema or pneumonia. Right pleural effusion Electronically Signed: Eamon Bang MD at 18:46 EST ,
[2022-03-06 18:24] LABS: AST(SGOT) 54 U/L (15-37); Alanine Aminotransfer ALT/SGPT 27 U/L (16-61); Albumin, Serum 2.6 g/dL (3.2-5.0); Alkaline Phosphatase 125 U/L (45-117); Anion Gap 2 (5-15); BUN 46 mg/dL (7-18); BUN/Creat Ratio 19.6 RATIO (10-20); Calcium,Total 8.4 mg/dL (8.5-10.1); Chloride 107 mmol/L (98-107); Creatinine, Serum 2.35 mg/dL (0.70-1.30); EST Glomerular Filtration Rate 29 mL/min (>60); Est Glom Filt Rate - Afr Amer 35 mL/min (>60); Estimated Creatinine Clearance 22.54 ml/min; Globulin 4.6 g/dL (2.2-4.2); Glucose 149 mg/dL (74-106); Lipase 339 U/L (73-393); Potassium 4.6 mmol/L (3.5-5.1); Protein, Total 7.2 g/dL (6.4-8.2); Sodium Level 142 mmol/L (136-145); Troponin-I HS 3990 pg/mL (3.0-78.0)
[2022-03-06 18:30] LABS: BNP,B-Type NATRIURETIC PEPTIDE 1742.8 pg/mL (0-100)
[2022-03-06 18:43] LABS: Lactic Acid 2.5 mmol/L (0.4-1.9)
[2022-03-06 18:56] LABS: Mucous, Urine 0 SEEN /hpf (<or=2+); Red Blood Cells-Urine 0 SEEN /hpf (0-5); Squamous Epithelial Cells - UA 0 SEEN /hpf (0-5)
[2022-03-06 19:00] LABS: Color, Urine Amber (Yellow); Glucose, Dipstick Normal (Normal); Ketone-Dipstick 5 mg/dl (Negative); Leukocyte Esterase-Dipstick 25 /ul (Negative); Nitrite-Dipstick Negative (Negative); Occult Blood-Urine 10 /ul (Negative); Protein-Dipstick 100 mg/dl (Negative); Specific Gravity, Urine 1.025 (1.002-1.030); Urine Clarity Clear (Clear); Urine Urobilinogen 4 mg/dl (Normal)
[2022-03-06 19:02] LABS: Urine Bilirubin Dipstick 3 mg/dL (Negative)
[2022-03-06 19:07] LABS: Bacteria RARE /hpf (None Seen); White Blood Cells 0-5 SEEN /hpf (0-5)
[2022-03-06] MEDS: 0.9% Normal Saline 1,000 ML 150 ML IV (19:14)
--- NOTE | 2022-03-06 19:57 | HP.PCM.HOS_ITS ---
HPI - General General Date of Admission: 03/06/22 Date of Service: 03/06/22 Chief Complaint: Shortness of breath HPI Narrative RICHARD PARRY, is a 76 M with a significant history of anxiety; asthma; COPD; diabetes mellitus; former smoker; hypertension and Parkinson disease who presents to the emergency department with shortness of breath. History was taken from patient's daughter (who was at the bedside) as patient was not answering questions; additionally he was on a BiPAP. Per patient daughter when she returned from work patient was yelling and saying she should call 911. Per patient's daughter the patient was having difficulty breathing. Reportedly when paramedics arrived patient oxygen saturation on room air was 53%. Patient was brought to emergency department on oxygen. On presentation on 6 L his oxygen saturation was in the high 90s. ABG showed oxygen saturation in the 80s. Patient was placed on BiPAP. Emergency department doctor reports that initially patient would open his eyes only to sternal rub. With BiPAP patient was noted to improve in his mentation. Patient's has been somnolent and he had been in bed a couple of days before presentation. Per daughter patient always lies on his side when he sleeps. [facility] Medical History Anxiety Asthma COPD (chronic obstructive pulmonary disease) Diabetes Former smoker Hyperlipidemia Hypertension Parkinsonian features Home Medications metformin 500 mg 24 hr tablet,extended release 500 mg PO DINNER diabetes 06/26/15 [History Last Taken 06/25/15] tamsulosin 0.4 mg capsule 0.8 mg PO QHS prostate 06/26/15 [History Last Taken 06/25/15] carbidopa 25 mg-levodopa 100 mg tablet 2 tab PO TIDAC parkinsons 09/11/15 [History Last Taken Unknown] empagliflozin 10 mg tablet (Jardiance) 10 mg PO DAILY diabetes 01/09/18 [History Last Taken Unknown] lisinopril 10 mg tablet (Zestril) 10 mg PO DAILY blood pressure 01/09/18 [History Last Taken Unknown] tramadol 50 mg tablet 50 mg PO Q6H PRN pain 3 days #12 tabs 12/02/21 [Rx Last Taken Unknown] levothyroxine 125 mcg tablet (Levoxyl) 125 mcg PO DAILY THYROID 03/06/22 [History Last Taken Unknown] ropinirole 2 mg tablet 2 mg PO QHS RESTLESS LEGS 03/06/22 [History Last Taken Unknown] trazodone 50 mg tablet 30 mg PO DAILY SLEEP 03/06/22 [History Last Taken Unkn own] Allergy/AdvReac Type Severity Reaction Status Date / Time allianna vera AdvReac Rash Verified 03/06/22 17:15 diclofenac AdvReac intolerance, Verified 03/06/22 17:15 leg edema Surgical History Hx of hand surgery Social History Smoking Status: Former smoker ROS Review of Systems ROS Unobtainable: other Details: Pertinent positives and pertinent negatives that could be provided by patient's family is as noted in HPI. All other systems were reviewed patient's family did not know or they were negative. Vital Signs Vital Signs Vital Signs: 03/06/22 17:05 03/06/22 17:09 03/06/22 17:10 Temperature 96.6 F L 96.6 F L Temperature Source Temporal Temporal Pulse Rate 93 86 Respiratory Rate 18 22 H Respiratory Effort Respiratory Pattern Blood Pressure 124/62 H 124/62 H Blood Pressure Mean 82 82 Pulse Ox 82 82 94 Oxygen Delivery Method Room Air Room Air Nasal Cannula Oxygen Flow Rate (L/min) 6 Fraction of Inspired Oxygen (FIO2) 03/06/22 17:12 03/06/22 18:22 03/06/22 18:25 Temperature 97.7 F L Temperature Source Temporal Pulse Rate 94 90 Respiratory Rate 18 18 Respiratory Effort Short of Breath Respiratory Pattern Tachypnea Normal Blood Pressure 130/77 H Blood Pressure Mean 94 Pulse Ox 94 95 Oxygen Delivery Method Nasal Cannula Oxygen Flow Rate (L/min) 5 Fraction of Inspired Oxygen (FIO2) 40 03/06/22 19:07 Temperature 97.5 F L Temperature Source Core Pulse Rate 94 Respiratory Rate 17 Respiratory Effort Respiratory Pattern Blood Pressure 139/63 H Blood Pressure Mean 88 Pulse Ox 98 Oxygen Delivery Method Bi-pap Oxygen Flow Rate (L/min) Fraction of Inspired Oxygen (FIO2) Weight Weight: 115.4 kg Body Mass Index (BMI) 42.3 Physical Exam Narrative Physical exam: General: Well-nourished, well-developed. Head: Normocephalic, atraumatic, no tenderness Eyes: Pinpoint pupil ENT, no trauma, moist mucous membranes, no rhinorrhea Neck: Nontender, No thyromegaly. CVS: Regular rate and rhythm. S1-S2 present. No murmur, gallop or rub. Respiratory : clear to auscultation bilaterally, chest wall nontender Abdomen: Soft, nontender. Edema of abdomen. Obese. : Deferred Back: Nontender, no CVA tenderness, no midline spinal tenderness. Extremities: Erythematous rash on abdomen. Edema of bilateral legs. Nontender., no trauma Skin: Normal color, no trauma, abrasions Neuro: Somnolent. Does not provide history Psychiatry: Normal mood. Normal affect. Not depressed. Not anxious. Results Lab / Micro Data Result Diagrams: 03/06/22 17:10 03/06/22 17:10 Labs: Laboratory Results - last 24 hr 03/06/22 17:10: WBC 9.3, RBC 4.09 L, Hgb 13.4, Hct 43.7, MCV 106.8 H, MCH 32.8 H , MCHC 30.7 L, RDW Std Deviation 63.7 H, RDW Coeff of Jean Claude 16.3 H, Plt Count 181, MPV 9.2, Immature Gran % (Auto) 0.900, Neut % (Auto) 61.3, Lymph % (Auto) 25.0, [place] % (Auto) 11.5 H, Eos % (Auto) 0.8, Baso % (Auto) 0.5, Absolute Neuts (auto) 5.7, Absolute Lymphs (auto) 2.33, Nucleated RBC % 0.2 03/06/22 17:10: Sodium 142, Potassium 4.6, Chloride 107, Carbon Dioxide 33.0 H, Anion Gap 2 L, BUN 46 H, Creatinine 2.35 H, Estim Creat Clear Calc 22.54, Est GFR (MDRD) Af Amer 35 L, Est GFR (MDRD) Non-Af 29 L, BUN/Creatinine Ratio 19.6, Glucose 149 H, Calcium 8.4 L, Total Bilirubin 1.40 H, Direct Bilirubin 0.60 H, AST 54 H, ALT 27, Alkaline Phosphatase 125 H, Troponin I High Sens 3990 H*, Total Protein 7.2, Albumin 2.6 L, Globulin 4.6 H, Lipase 339 03/06/22 17:10: Lactic Acid 2.5 H* 03/06/22 17:10: B-Natriuretic Peptide 1742.8 H 03/06/22 17:55: Ammonia 33.0 H 03/06/22 18:45: Urine Color Jill, Urine Clarity Clear, Urine pH 5.0, Ur Specific [place] 1.025, Urine Protein 100 H, Urine Glucose (UA) Normal, Urine Ketones 5 H, Urine Occult Blood 10 H, Urine Nitrite Negative, Urine Bilirubin 3 H, Urine Urobilinogen 4 H, Ur Leukocyte Esterase 25 H, Urine RBC 0 SEEN, Urine WBC 0-5 SEEN, Ur Squamous Epith Cells 0 SEEN, Urine Bacteria RARE, Urine Mucus 0 SEEN ABG Data ABG results: ABG 03/06/22 18:02 Specimen Type ART Sample Site L Radial pH 7.23 L Bicarbonate Actual 35.1 H Total CO2 38 Base Excess 8 H O2 Saturation 97 ABG pCO2 84.8 H* ABG pO2 109 H Jonah Test Positive O2 Delivery Device Cannula Liter Flow 5.0 Crit Call To/Read Back Yes Blood Gas Notified Whom marty Radiology Impression Abdomen/Pelvis CT 03/06/22 17:42 IMPRESSION: Cirrhotic liver. Severe ascites. Wall thickening of the right colon suggesting focal colitis versus mass. No obstruction. Electronically Signed: Eamon Bang MD at 18:51 EST Reading Location ID and State: [facility] / [place] , Service support , Brain CT 03/06/22 17:42 IMPRESSION: Chronic involutional changes of the brain. Electronically Signed: Eamon Bang MD at 18:37 EST , Chest X-Ray 03/06/22 18:18 IMPRESSION: Bilateral edema or pneumonia. Right pleural effusion Electronically Signed: Eamon Bang MD at 18:46 EST , Assessment & Plan Assessment/Plan (1) Heart failure: (2) Elevated troponin: (3) Encephalopathy: (4) Ascites: (5) Cirrhosis: (6) Colitis: PLAN: Plan Fluid overload/hypoxia/pleural effusion. Different diagnoses include ascites and heart failure. Place on a critical bed at the ICU. Weight on admission to the floor; and then daily Strict I&O's CXR independently interpreted confirms bilateral edema. Right pleural effusion. Received Unasyn at the emergency department for possible aspiration pneumonia. Patient with no leukocytosis no fever. Unlikely pneumonia. However would cautiously continue Unasyn while inpatient. BNP of 1,742.8 Lasix ordered. Transthoracic echocardiogram to evaluate left ventricular wall motion and systolic function. Reilly wraps to bilateral lower legs Fluid restriction. Placed on BiPAP at the emergency department. BiPAP continued. N.p.o. while on BiPAP. Therapeutic paracentesis with fluid studies and cytology ordered. Non-STEMI Initial high sensitive troponin was 3990. EKG showed no ST elevation. Emergen cy department discussed the case with cardiology who recommended heparin drip. Heparin drip continued inpatient. Patient is too somnolent to complain of pain. Will treat as non-STEMI. Trend troponin cardiology consult. Colitis/cirrhosis/ascites. CT abdomen pelvis remarkable for cirrhotic liver and severe ascites. Also wall thickening right colon suggesting focal colitis versus mass. No obstruction noted. Unasyn ordered as above. GI consult. Acute metabolic encephalopathy Likely secondary to hypoxemia and hypercapnia BiPAP as above. Trend. DVT prophylaxis: Not indicated as patient has been started on heparin drip for non-STEMI. Charges/Coding Visit Charges Inpatient E&M: 21889 Init Hosp L3
[2022-03-06 20:50] LABS: International Normalized Ratio 1.4; Prothrombin Time (Protime)PT. 16.5 SECONDS (11.7-14.9)
[2022-03-06] MEDS: Heparin Injection (Vial) 5,000 UNIT/ML VIAL 9500 UNIT IV (21:18)
[2022-03-06] MEDS: HEPARIN/D5w 25,000 UNITS 25,000 UNITS/250 ML IV.SOLN. 16 UNITS CONT INF (21:19)
--- NOTE | 2022-03-06 21:47 | ECHOCS_ITS ---
Reason For Study: DYSPNEA Procedure This was a 2D Doppler, Color Flow transthoracic echocardiogram. The study was technically difficult. Contrast injection was performed. Exam performed portable in ICU/CCU. Left Ventricle Based upon the 2D echocardiographic and contrast enhanced images obtained there appears to be grossly normal left ventricular size, wall motion, and systolic function. The estimated ejection fraction is 65 %. No evidence for diastolic dysfunction. Right Ventricle Based upon the 2D echocardiographic and contrast enhanced images obtained there appears to be right ventricular dilatation and global right ventricular systolic dysfunction. Atria Normal left atrium. Normal right atrium. No doppler evidence for ASD. Mitral Valve There is no mitral annular calcification. Normal mitral valve. Trivial mitral valve insufficiency. Tricuspid Valve Normal tricuspid valve. Trivial tricuspid valve insufficiency. Right ventricular systolic pressure estimated to be 35 mmHg. Aortic Valve The aortic valve is not well visualized. Pulmonic Valve The pulmonic valve is not well visualized. Great Vessels The aortic root is not well visualized. Pericardium/Pleural No pericardial effusion. Medication 22 gauge I.V. with prn adaptor inserted into right arm. Diluted definity 2ml given slow IV push to enhance endocardial definition. MMode/2D Measurements & Calculations LAV(MOD-sp4): 46.1 ml LA A4 area: 17.9 cm2 RA A4 area: 16.3 cm2 Time Measurements MV dec time: 0.25 sec Doppler Measurements & Calculations MV E max angelo: 64.9 cm/sec Lat Peak E' Angelo: 7.6 cm/sec Med Peak E' Angelo: 6.9 cm/sec MV A max angelo: 103.3 cm/sec E/E' lat: 8.5 E/E' med: 9.3 MV E/A: 0.63 MV V2 max: 107.8 cm/sec MV dec slope: 259.2 cm/sec2 Ao V2 max: 134.1 cm/sec MV max P.7 mmHg Ao max P.2 mmHg MV V2 mean: 40.6 cm/sec Ao V2 mean: 86.6 cm/sec MV mean P.96 mmHg Ao mean P.6 mmHg MV V2 VTI: 28.2 cm Ao V2 VTI: 24.4 cm AV (velocity ratio): 0.96 LV V1 max: 120.0 cm/sec TR max angelo: 260.5 cm/sec LV V1 max P.8 mmHg TR max P.1 mmHg LV V1 mean P.5 mmHg LV V1 mean: 72.9 cm/sec LV V1 VTI: 23.4 cm ECHO/Echo Complete W/ Contrast Interpretation Summary The study was technically difficult. Contrast injection was performed. Based upon the 2D echocardiographic and contrast enhanced images obtained there appears to be grossly normal left ventricular size, wall motion, and systolic function. The estimated ejection fraction is 65 %. Based upon the 2D echocardiographic and contrast enhanced images obtained there appears to be right ventricular dilatation and global right ventricular systolic dysfunction. Trivial mitral valve insufficiency. Trivial tricuspid valve insufficiency. Right ventricular systolic pressure estimated to be 35 mmHg. No evidence for diastolic dysfunction. Comment: Echo lucency potentially compatible with ascites Ordering Physician: Ryan Tapia Referring Physician: MD Ken Edis Performed By: Kizzy Benoit RCS
[2022-03-06 21:59] LABS: Reflex Lactate? Y
[2022-03-06] MEDS: Furosemide 40 MG/4 ML Vial IV (22:18)
--- NOTE | 2022-03-06 22:34 | EKG12_ITS ---
Test Reason : HEART RHYTHM CHANGE Blood Pressure : / mmHG Vent. Rate : 060 BPM Atrial Rate : 060 BPM P-R Int : 140 ms QRS Dur : 082 ms QT Int : 420 ms P-R-T Axes : -09 005 076 degrees QTc Int : 420 ms Normal sinus rhythm Low voltage QRS T wave abnormality, consider anterior ischemia Abnormal ECG When compared with ECG of 06-MAR-2022 22:53, MANUAL COMPARISON REQUIRED, DATA IS UNCONFIRMED Confirmed by VIRAJ JEAN BAPTISTE, JOSE ALEJANDRO ([id number]), health editor RABIA CORREA ([id number]) on 03/07/2022 2:02:28 PM Referred By: [facility] Confirmed By:ZBIGNIEW CALI MD
[2022-03-06 22:49] LABS: Troponin-I HS 3771 pg/mL (3.0-78.0)
[2022-03-06 22:51] LABS: Allen Test Positive; Base Excess 6 mmol/L (-2 to +2); Bicarbonate 32.6 mmol/L (22-26); Blood Gas Specimen Type ART; Comment AVAPS; FI02 30; O2 Delivery Device BiPAP; PEEP 8; PO2 83 mmHG (75-100); RR 14; SITE R Radial; SO2 94 % (95-99); Total Carbon Dioxide 35 mmol/L; Vt 300; pCO2 70.3 mmHg (35-45); pH 7.27 (7.35-7.45)
[2022-03-06 22:51] LABS: Lactic Acid 1.8 mmol/L (0.4-1.9)
--- NOTE | 2022-03-06 22:52 | EKG12_ITS ---
Test Reason : HEART RHYTHM CHANGE Blood Pressure : / mmHG Vent. Rate : 058 BPM Atrial Rate : 058 BPM P-R Int : 130 ms QRS Dur : 082 ms QT Int : 436 ms P-R-T Axes : 036 008 064 degrees QTc Int : 428 ms Sinus bradycardia with Premature supraventricular complexes Low voltage QRS Nonspecific T wave abnormality Abnormal ECG When compared with ECG of 06-MAR-2022 22:52, MANUAL COMPARISON REQUIRED, DATA IS UNCONFIRMED Confirmed by VIRAJ JEAN BAPTISTE, JOSE ALEJANDRO ([id number]), editor newspaper RABIA CORREA ([id number]) on 03/07/2022 2:04:06 PM Referred By: UMU Confirmed By:ZBIGNIEW CALI MD
--- NOTE | 2022-03-06 22:53 | EKG12_ITS ---
Test Reason : HEART RHYTHM CHANGE Blood Pressure : / mmHG Vent. Rate : 069 BPM Atrial Rate : 069 BPM P-R Int : 134 ms QRS Dur : 084 ms QT Int : 366 ms P-R-T Axes : 021 007 082 degrees QTc Int : 392 ms Normal sinus rhythm with sinus arrhythmia Low voltage QRS Nonspecific T wave abnormality Abnormal ECG When compared with ECG of 06-MAR-2022 17:23, MANUAL COMPARISON REQUIRED, DATA IS UNCONFIRMED Confirmed by VIRAJ JEAN BAPTISTE, JOSE ALEJANDRO ([id number]), metropolitan editor RABIA CORRAE ([id number]) on 03/07/2022 2:04:00 PM Referred By: UMU Confirmed By:ZBIGNIEW CALI MD
[2022-03-06 23:50] LABS: Bedside Glucose 115 mg/dL (74-106)
[2022-03-06 23:59] LABS: Troponin-I HS 3593 pg/mL (3.0-78.0)
[2022-03-07] VITALS (32 sets, daily range): BP systolic 97–146; BP diastolic 40–95; PULSE 50–108; RESP 13–28; TEMP 36.6–36.8; O2SAT 91–100
[2022-03-07 03:27] LABS: Absolute Lymphocyte Count 1.28 X10^3/uL (0.83-4.51); Absolute Neutrophil Count 5.3 X10^3/uL (2.0-7.7); Basophil# 0.02 X10^3/uL; Basophil% 0.3 % (0-1); Eosinophil# 0.05 X10^3/uL; Eosinophils% 0.7 % (0-5); Hematocrit 36.7 % (40-54); Hemoglobin 11.7 g/dL (13.0-16.5); Lymphocyte # 1.28 X10^3/ul (0.83-4.51); Lymphocyte % 16.7 % (19-41); Mean Corp Hgb Conc 31.9 g/dL (32-36); Mean Corpuscular Hgb 34.1 pg (27.0-32.0); Monocyte# 1.01 X10^3/uL; Monocyte% 13.2 % (0-10); NRBC Flagged by Analyzer 0 % (0-5); Neutrophil # 5.25 X10^3/uL (2.7-7.7); Neutrophil % 68.6 % (47-70); Platelet Count 119 K/mm3 (150-450); RBC Distribution Width CV 16.4 % (11.6-14.6); RBC Distribution Width SD 64.5 fl (35.1-43.9); Red Blood Count 3.43 M/mm3 (4.6-6.2); White Blood Count 7.7 K/mm3 (4.4-11.0)
[2022-03-07 03:47] LABS: ALB/GLOB Ratio 0.6 RATIO (0.9-2.4); AST(SGOT) 42 U/L (15-37); Alanine Aminotransfer ALT/SGPT 24 U/L (16-61); Albumin, Serum 2.1 g/dL (3.2-5.0); Alkaline Phosphatase 97 U/L (45-117); Anion Gap 5 (5-15); BUN 50 mg/dL (7-18); BUN/Creat Ratio 21.2 RATIO (10-20); Calcium,Total 8.1 mg/dL (8.5-10.1); Chloride 106 mmol/L (98-107); Creatinine, Serum 2.36 mg/dL (0.70-1.30); EST Glomerular Filtration Rate 29 mL/min (>60); Est Glom Filt Rate - Afr Amer 34 mL/min (>60); Estimated Creatinine Clearance 26.64 ml/min; Globulin 3.8 g/dL (2.2-4.2); Glucose 146 mg/dL (74-106); Potassium 4.6 mmol/L (3.5-5.1); Protein, Total 5.9 g/dL (6.4-8.2); Sodium Level 145 mmol/L (136-145)
[2022-03-07 03:55] LABS: Magnesium 2.1 mg/dL (1.6-2.6); Thyroid Stim Hormone (TSH) 8.29 uIU/mL (0.358-3.74)
[2022-03-07 03:56] LABS: Partial Thromboplast Time > 200.0 Seconds (24.1-36.2)
--- NOTE | 2022-03-07 05:32 | US_ITS ---
PROCEDURE: Ultrasound guided paracentesis. DATE OF EXAMINATION: 03/07/2022. INDICATION: Male, 76 years old. Ascites. PHYSICIAN: Manuelito Mathews M.D. TECHNIQUE: The risks, benefits, and alternatives to the procedure were explained to the patient. The specific risks of bleeding, infection, and damage to bowel were detailed and accepted. Witnessed informed consent was obtained. The abdomen was ultrasonographically surveyed. An appropriate pocket of fluid was identified at the right lower quadrant. The skin were cleaned and prepped in the usual sterile fashion. Using ultrasound guidance, the peritoneal cavity was accessed with a 5-Bangladeshi paracentesis needle/catheter system. The trocar was removed. A total of 6850 ml of tiffany-colored fluid were removed from the peritoneal cavity. A 100 mL sample was sent to the lab for analysis. The catheter was removed and a sterile dressing was applied. The procedure was well tolerated. US/Paracentesis with US IMPRESSION: Ultrasound guided paracentesis. Electronically Signed: Manuelito Mathews MD at 13:37 EST ,
[2022-03-07] MEDS: 0.9% Saline Lock 10 ML Syringe IV ×2 (05:35→21:33)
[2022-03-07] MEDS: Insulin Lispro 100 UNIT/ML INSULN.PEN SC (05:39)
[2022-03-07 05:55] LABS: Bedside Glucose 169 mg/dL (74-106)
--- NOTE | 2022-03-07 07:42 | CON.PCM.CC_ITS ---
Assessment & Plan Assessment/Plan (1) Acute and chronic respiratory failure with hypercapnia: (2) Ascites: (3) Cirrhosis: (4) Diabetes mellitus: QUALIFIERS: Diabetes mellitus type: type 2 Diabetes mellitus complication detail: with polyneuropathy PLAN: Plan RECOMMENDATIONS: 1. Arrange for paracentesis and thoracentesis 2. Pause heparin drip to facilitate interventions 3. Send fluids for cytology 4. Await GI and cardiology recommendations 5. Clarify history as relates to liver function 6. Hold on steroids for now, pending response to thoracentesis IMPRESSIONS: 1. Acute on chronic hypercarbic respiratory failure secondary to pleural effusion, in the setting of COPD/asthma overlap Patient with new right-sided pleural effusion. This has not been documented previously, but patient does have significant ascites, so perihepatic leak would be suspected. Recommend a paracentesis prior to thoracentesis. Given colonic thickening, malignancy would be a concern. Cirrhosis would also be a concern. Agree with obtaining Light's criteria on thoracentesis fluid. Low clinical suspicion for SBP given lack of fever and leukocytosis. Patient does not have any PFTs in our current system to tell what baseline function is, but labs are suggestive the patient is a chronic CO2 retainer and likely was unable to compensate for basilar atelectasis associated with pleural effusion. If patient does not improve following thoracentesis, could attempt steroids. 2. Elevated troponin/Acute on chronic diastolic CHF/suspected type II pulmonary hypertension Patient currently on a heparin drip. Echocardiogram from 2018 did show diastolic dysfunction with an EF of 60%. Patient did have elevated pulmonary artery pressures of 36 mmHg at that time. Cardiology has been consulted. Heparin drip will have to be paused to allow for procedures. Some concern patient has an element of elevated troponin secondary to global hypoxia with a type II NSTEMI. 3. Cirrhosis with possible colon mass and ascites Unclear if patient has a known diagnosis of cirrhosis. GI has been consulted. Clinical suspicion is ascites has led to the pleural effusion and we would expect a transudate pattern on laboratory testing. If this is exudate, aggressive investigation for malignancy would be warranted. Patient is not showing any signs or symptoms of a GI bleed, but has had some hematuria complaints recently per the documentation. 4. Diabetes mellitus type 2/anxiety/Parkinson's features/hypertension/hyperlipidemia/obesity/advanced age Complicates care, management, recovery and prognosis. We will attempt to avoid steroids as this will worsen hyperglycemia. Okay to continue with parkinsonian medications from my perspective. Could consider discontinuation with ropinirole as this could make Parkinson's features worse. TIME: 32 minutes critical care time spent addressing patient's acute on chronic hypercarbic respiratory failure, ascites, pleural effusion, review of all data and collaboration with care team. HPI Consult Data Date of Consult: 03/07/22 HPI Narrative Reason for Consultation: Acute respiratory failure HPI Narrative: RICHARD PARRY is a 76 M, with past medical history listed below, who presents to [facility] 03/06/2022 via EMS secondary to shortness of breath and confusion with his daughter to provide most of the history. Patient reportedly was found to be asleep when the daughter arrived home following third shift this morning. Patient was checked on this afternoon and was not up and moving. Patient reportedly had a pulse ox of 53% on room air. 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 Patient's daughter reported that the patient was his normal self the day prior. Patient had been seen in the emergency department earlier in the month and diagnosed with a UTI and the daughter believe that he had compl eted his antibiotic course. Patient was scheduled to see his PCP, but canceled the appointment for unclear reasons. In the ER, patient was afebrile, but saturating 82% on room air. Patient was placed on 6 L nasal cannula, but an ABG was suggestive of respiratory failure, so BiPAP was initiated. Laboratory work-up showed a white blood cell count of 9.3, hemoglobin of 13.4 and platelet count of 181. Chemistries were significant for a bicarbonate of 33, creatinine of 2.35 and a lactate of 2.5. Troponins were elevated at 3990 along with a mild increase in liver enzymes. BNP was elevated at 1742 and ammonia was 33. UA was relatively unremarkable. Patient subsequently had a CT of the abdomen and pelvis showing a cirrhotic liver with severe ascites and thickening of the right colon without obvious obstruction. CT of the head was unremarkable and a chest x-ray showed a new right pleural effusion compared to previous chest x-ray on 02/20/2022. Patient was admitted to the intensive care unit for further evaluation. Since being in the intensive care unit, patient has done okay. Patient has been compliant with BiPAP therapy, but is not able to provide much additional information at this time. Patient does open his eyes and make eye contact, but quickly falls back asleep. Patient did not reported any pain during this brief encounter. Patient has been placed on a heparin drip, but has not been seen by cardiology at this time. It is unclear if a diagnosis of cirrhosis is known. [facility] Medical History Anxiety Asthma COPD (chronic obstructive pulmonary disease) Diabetes Former smoker Hyperlipidemia Hypertension Parkinsonian features Home Medications metformin 500 mg 24 hr tablet,extended release 500 mg PO DINNER diabetes 06/26/15 [History Last Taken 06/25/15] tamsulosin 0.4 mg capsule 0.8 mg PO QHS prostate 06/26/15 [History Last Taken 06/25/15] carbidopa 25 mg-levodopa 100 mg tablet 2 tab PO TIDAC parkinsons 09/11/15 [History Last Taken Unknown] empagliflozin 10 mg tablet (Jardiance) 10 mg PO DAILY diabetes 01/09/18 [History Last Taken Unknown] lisinopril 10 mg tablet (Zestril) 10 mg PO DAILY blood pressure 01/09/18 [History Last Taken Unknown] tramadol 50 mg tablet 50 mg PO Q6H PRN pain 3 days #12 tabs 12/02/21 [Rx Last Taken Unknown] levothyroxine 125 mcg tablet (Levoxyl) 125 mcg PO DAILY THYROID 03/06/22 [History Last Taken Unknown] ropinirole 2 mg tablet 2 mg PO QHS RESTLESS LEGS 03/06/22 [History Last Taken Unknown] trazodone 50 mg tablet 30 mg PO DAILY SLEEP 03/06/22 [History Last Taken Unknow n] Allergy/AdvReac Type Severity Reaction Status Date / Time aloe vera AdvReac Rash Verified 03/06/22 17:15 diclofenac AdvReac intolerance, Verified 03/06/22 17:15 leg edema Surgical History Hx of hand surgery Social History Smoking Status: Former smoker ROS Review of Systems ROS Unobtainable: due to mental status Physical Exam Const Constitutional Narrative: Good BiPAP synchrony. Appears older than stated age. General Appearance: lethargic HEENT normocephalic and head/scalp atraumatic HEENT Narrative: Dry mucous membranes. No significant mask leak noted. Eyes EOMs intact bilaterally and conjunctivae normal Neck full ROM Lymph Lymphatic: no lymphadenopathy noted Chest Chest: abnormal inspection of the chest increased A-P diameter Resp normal respiratory effort Effort and Inspection: Negative for actively coughing or uses accessory muscles Auscultation: rales right mid and diminished lung sounds; Negative for rhonchi or wheezes Percussion: dullness Mid: right and Lower: right Cardio regular rate, regular rhythm, S1 normal heart sound, S2 normal heart sound, no murmurs, no rub and no gallops Cardio Narrative: Significant ectopy noted on telemetry. GI non-tender Inspection: abdominal distention Palpation: ascites Percussion: fluid wave Extremity General Extremity: edema Neuro moves all extremities and no focal motor deficits Psych Mood & Affect: flat affect Medical Records Data Attestation: I reviewed the patient's medical records Medical records narrative: Reviewed previous ER records. Patient placed on antibiotics secondary to UTI. Chest x-ray at that time was not showing a pleural effusion. Documentation is not clear on whether ascites was present. Lab / Micro Data Attestation: I reviewed the patient's lab results. Lab results narrative: Baseline creatinine appears to be about 1 Result Diagrams: 03/07/22 03:11 03/07/22 03:11 Labs: Laboratory Results - last 24 hr 03/06/22 17:10: WBC 9.3, RBC 4.09 L, Hgb 13.4, Hct 43.7, MCV 106.8 H, MCH 32.8 H , MCHC 30.7 L, RDW Std Deviation 63.7 H, RDW Coeff of Jean Claude 16.3 H, Plt Count 181, MPV 9.2, Immature Gran % (Auto) 0.900, Neut % (Auto) 61.3, Lymph % (Auto) 25.0, [place] % (Auto) 11.5 H, Eos % (Auto) 0.8, Baso % (Auto) 0.5, Absolute Neuts (auto) 5.7, Absolute Lymphs (auto) 2.33, Nucleated RBC % 0.2 03/06/22 17:10: Sodium 142, Potassium 4.6, Chloride 107, Carbon Dioxide 33.0 H, Anion Gap 2 L, BUN 46 H, Creatinine 2.35 H, Estim Creat Clear Calc 22.54, Est GFR (MDRD) Af Amer 35 L, Est GFR (MDRD) Non-Af 29 L, BUN/Creatinine Ratio 19.6, Glucose 149 H, Calcium 8.4 L, Total Bilirubin 1.40 H, Direct Bilirubin 0.60 H, AST 54 H, ALT 27, Alkaline Phosphatase 125 H, Troponin I High Sens 3990 H*, Total Protein 7.2, Albumin 2.6 L, Globulin 4.6 H, Lipase 339 03/06/22 17:10: Lactic Acid 2.5 H* 03/06/22 17:10: B-Natriuretic Peptide 1742.8 H 03/06/22 17:10: PT 16.5 H, INR 1.4, APTT 34.0 03/06/22 17:55: Ammonia 33.0 H 03/06/22 18:45: Urine Color Jill, Urine Clarity Clear, Urine pH 5.0, Ur Specific [place] 1.025, Urine Protein 100 H, Urine Glucose (UA) Normal, Urine Ketones 5 H, Urine Occult Blood 10 H, Urine Nitrite Negative, Urine Bilirubin 3 H, Urine Urobilinogen 4 H, Ur Leukocyte Esterase 25 H, Urine RBC 0 SEEN, Urine WBC 0-5 SEEN, Ur Squamous Epith Cells 0 SEEN, Urine Bacteria RARE, Urine Mucus 0 SEEN 03/06/22 22:10: Troponin I High Sens 3771 H* 03/06/22 22:10: Lactic Acid 1.8 03/06/22 23:28: POC Glucose 115 H 03/06/22 23:29: Troponin I High Sens 3593 H* 03/07/22 03:11: WBC 7.7, RBC 3.43 L, Hgb 11.7 L, Hct 36.7 L, MCV 107.0 H, MCH 34.1 H, MCHC 31.9 L, RDW Std Deviation 64.5 H, RDW Coeff of Jean Claude 16.4 H, Plt Count 119 L, MPV 9.0, Immature Gran % (Auto) 0.500, Neut % (Auto) 68.6, Lymph % (Auto) 16.7 L, Cros[place] % (Auto) 13.2 H, Eos % (Auto) 0.7, Baso % (Auto) 0.3, Absolute Neuts (auto) 5.3, Absolute Lymphs (auto) 1.28, Nucleated RBC % 0 03/07/22 03:11: Sodium 145, Potassium 4.6, Chloride 106, Carbon Dioxide 34.0 H, Anion Gap 5, BUN 50 H, Creatinine 2.36 H, Estim Creat Clear Calc 26.64, Est GFR (MDRD) Af Amer 34 L, Est GFR (MDRD) Non-Af 29 L, BUN/Creatinine Ratio 21.2 H, Glucose 146 H, Calcium 8.1 L, Total Bilirubin 1.20 H, AST 42 H, ALT 24, Alkaline Phosphatase 97, Total Protein 5.9 L, Albumin 2.1 L, Globulin 3.8, Albumin/Globulin Ratio 0.6 L 03/07/22 03:11: APTT > 200.0 H* 03/07/22 03:11: Magnesium 2.1, TSH 8.29 H 03/07/22 05:34: POC Glucose 169 H ABG Data ABG results: ABG 03/06/22 03/06/22 18:02 22:45 Specimen Type ART ART Sample Site L Radial R Radial pH 7.23 L 7.27 L Bicarbonate Actual 35.1 H 32.6 H Total CO2 38 35 Base Excess 8 H 6 H O2 Saturation 97 94 L O2 % 30 ABG pCO2 84.8 H* 70.3 H* ABG pO2 109 H 83 Jonah Test Positive Positive Respiration Rate 14 O2 Delivery Device Cannula BiPAP Liter Flow 5.0 Tidal Volume 300 POC PEEP 8 Crit Call To/Read Back Yes Yes Blood Gas Notified Whom marty Tapia Clinical Comments AVAPS Attestation: I personally reviewed and interpreted this ABG as follows: (Acute on chronic hypercarbic respiratory failure with increased AA gradient, improved on BiPAP) Radiology Impression Abdomen/Pelvis CT 03/06/22 17:42 IMPRESSION: Cirrhotic liver. Severe ascites. Wall thickening of the right colon suggesting focal colitis versus mass. No obstruction. Electronically Signed: Eamon Bang MD at 18:51 EST , Brain CT 03/06/22 17:42 IMPRESSION: Chronic involutional changes of the brain. Electronically Signed: Eamon Bang MD at 18:37 EST , Chest X-Ray 03/06/22 18:18 IMPRESSION: Bilateral edema or pneumonia. Right pleural effusion Electronically Signed: Eamon Bang MD at 18:46 EST ,
--- NOTE | 2022-03-07 07:56 | PN.HOSP_ITS ---
Subjective Subjective Follow-up for acute combined respiratory failure/pleural effusion/non-STEMI: Patient was seen and examined. Appears confused. He was saturating well on BiPAP. Denied any pain. Objective Data Objective Data Vital Signs: Vital Signs Temp Pulse Resp BP Pulse Ox O2 Del Method O2 Flow Rate 98.1 F 73 16 97/59 L 94 Bi-pap 5 03/07/22 07:00 03/07/22 07:00 03/07/22 07:00 03/07/22 07:00 03/07/22 07:00 03/07/22 07:00 03/06/22 18:22 FiO2 30 03/07/22 07:00 Oxygen Flow Rate (L/min) 5 Oxygen Delivery Method Bi-pap Weight: 102.2 kg Body Mass Index (BMI) 32.3 Intake & Output: Intake and Output for Last 24 Hours 03/05/22 03/06/22 03/07/22 23:59 23:59 23:59 Intake Total 574.5 / 574.5 105.6 / 105.6 Output Total 750 / 750 Balance 574.5 / 299.5 -644.4 / -644.4 Lab / Micro Data Result Diagrams: 03/07/22 03:11 03/07/22 03:11 Labs: Laboratory Results - last 24 hr 03/06/22 17:10: WBC 9.3, RBC 4.09 L, Hgb 13.4, Hct 43.7, MCV 106.8 H, MCH 32.8 H , MCHC 30.7 L, RDW Std Deviation 63.7 H, RDW Coeff of Jean Claued 16.3 H, Plt Count 181, MPV 9.2, Immature Gran % (Auto) 0.900, Neut % (Auto) 61.3, Lymph % (Auto) 25.0, [place] % (Auto) 11.5 H, Eos % (Auto) 0.8, Baso % (Auto) 0.5, Absolute Neuts (auto) 5.7, Absolute Lymphs (auto) 2.33, Nucleated RBC % 0.2 03/06/22 17:10: Sodium 142, Potassium 4.6, Chloride 107, Carbon Dioxide 33.0 H, Anion Gap 2 L, BUN 46 H, Creatinine 2.35 H, Estim Creat Clear Calc 22.54, Est GFR (MDRD) Af Amer 35 L, Est GFR (MDRD) Non-Af 29 L, BUN/Creatinine Ratio 19.6, Glucose 149 H, Calcium 8.4 L, Total Bilirubin 1.40 H, Direct Bilirubin 0.60 H, AST 54 H, ALT 27, Alkaline Phosphatase 125 H, Troponin I High Sens 3990 H*, Total Protein 7.2, Albumin 2.6 L, Globulin 4.6 H, Lipase 339 03/06/22 17:10: Lactic Acid 2.5 H* 03/06/22 17:10: B-Natriuretic Peptide 1742.8 H 03/06/22 17:10: PT 16.5 H, INR 1.4, APTT 34.0 03/06/22 17:55: Ammonia 33.0 H 03/06/22 18:45: Urine Color Jill, Urine Clarity Clear, Urine pH 5.0, Ur Specific [place] 1.025, Urine Protein 100 H, Urine Glucose (UA) Normal, Urine Ketones 5 H, Urine Occult Blood 10 H, Urine Nitrite Negative, Urine Bilirubin 3 H, Urine Urobilinogen 4 H, Ur Leukocyte Esterase 25 H, Urine RBC 0 SEEN, Urine WBC 0-5 SEEN, Ur Squamous Epith Cells 0 SEEN, Urine Bacteria RARE, Urine Mucus 0 SEEN 03/06/22 22:10: Troponin I High Sens 3771 H* 03/06/22 22:10: Lactic Acid 1.8 03/06/22 23:28: POC Glucose 115 H 03/06/22 23:29: Troponin I High Sens 3593 H* 03/07/22 03:11: WBC 7.7, RBC 3.43 L, Hgb 11.7 L, Hct 36.7 L, MCV 107.0 H, MCH 34.1 H, MCHC 31.9 L, RDW Std Deviation 64.5 H, RDW Coeff of Jean Claude 16.4 H, Plt Count 119 L, MPV 9.0, Immature Gran % (Auto) 0.500, Neut % (Auto) 68.6, Lymph % (Auto) 16.7 L, [place] % (Auto) 13.2 H, Eos % (Auto) 0.7, Baso % (Auto) 0.3, Absolute Neuts (auto) 5.3, Absolute Lymphs (auto) 1.28, Nucleated RBC % 0 03/07/22 03:11: Sodium 145, Potassium 4.6, Chloride 106, Carbon Dioxide 34.0 H, Anion Gap 5, BUN 50 H, Creatinine 2.36 H, Estim Creat Clear Calc 26.64, Est GFR (MDRD) Af Amer 34 L, Est GFR (MDRD) Non-Af 29 L, BUN/Creatinine Ratio 21.2 H, Glucose 146 H, Calcium 8.1 L, Total Bilirubin 1.20 H, AST 42 H, ALT 24, Alkaline Phosphatase 97, Total Protein 5.9 L, Albumin 2.1 L, Globulin 3.8, Albumin/Globulin Ratio 0.6 L 03/07/22 03:11: APTT > 200.0 H* 03/07/22 03:11: Magnesium 2.1, TSH 8.29 H 03/07/22 05:34: POC Glucose 169 H ABG Data ABG results: ABG 03/06/22 03/06/22 18:02 22:45 Specimen Type ART ART Sample Site L Radial R Radial pH 7.23 L 7.27 L Bicarbonate Actual 35.1 H 32.6 H Total CO2 38 35 Base Excess 8 H 6 H O2 Saturation 97 94 L O2 % 30 ABG pCO2 84.8 H* 70.3 H* ABG pO2 109 H 83 Jonah Test Positive Positive Respiration Rate 14 O2 Delivery Device Cannula BiPAP Liter Flow 5.0 Tidal Volume 300 POC PEEP 8 Crit Call To/Read Back Yes Yes Blood Gas Notified Whom marty Tapia Clinical Comments AVAPS Radiography Diagnostic Testing: Radiology Impression Abdomen/Pelvis CT 03/06/22 17:42 IMPRESSION: Cirrhotic liver. Severe ascites. Wall thickening of the right colon suggesting focal colitis versus mass. No obstruction. Electronically Signed: Eamon Bang MD at 18:51 EST , Brain CT 03/06/22 17:42 IMPRESSION: Chronic involutional changes of the brain. Electronically Signed: Eamon Bang MD at 18:37 EST , Chest X-Ray 03/06/22 18:18 IMPRESSION: Bilateral edema or pneumonia. Right pleural effusion Electronically Signed: Eamon Bang MD at 18:46 EST , Physical Exam Narrative Physical exam: General: Alert, Oriented, Cooperative, in mild respiratory distress, on BiPAP HEENT: Atraumatic Oral: Moist Mucosa Neck: Supple Lungs: Diminished to auscultation Cardiovascular: HS I+II, regular, no murmurs Abdomen: Abdomen is distended, bowel Sounds Present, Soft, Non Tender, ascites++ Extremities: Bilateral leg edema+1 Skin: No rashes, No breakdown Neurological: Grossly intact Psych/Mental Status: Appropriate Assessment & Plan Assessment/Plan (1) Acute and chronic respiratory failure with hypercapnia: PLAN: Plan 1. Acute combined respiratory failure secondary to acute fluid overload/right pleural effusion/acute CHF exacerbation Patient remains on BiPAP, lieutenant shift supervisor consulted, continue to wean off oxygen 2. Acute exacerbation of acute on chronic CHF, EF 65%: Continue on IV lasix, strict I & Os, daily weight, fluid restriction, SNOW-wraps to legs 3. Acute non-STEMI, admitting EKG shows some lateral T wave inversions 2D echo shows grossly normal LV function, EF 65% Cardiology consulted, continue with heparin drip 4. Acute decompensated liver cirrhosis with ascites/pleural effusion with hepatic encephalopathy Paracentesis and thoracocentesis planned today. lAmmonia level is 33 Start on lactulose and rifaximin Repeat LFTs and ammonia levels in a.m. GI consulted 4. Abnormal CT abdomen pelvis, right colitis versus mass, continue on IV Unasyn 5. Type 2 DM, fairly controlled, hold Jardiance Continue on insulin sliding scale with blood glucose checks every 6h 6. Hypertension, fairly controlled, continue to hold lisinopril 7. PRUDENCE on CKD stage III, likely prerenal, creatinine is 2.36 Previous level was 1.09, will trend 8.Acute metabolic/hepatic encephalopathy, also possibly secondary to hypercapnia Ammonia level is 33, will continue to monitor. 9. DVT prophylaxis?we will start on SCDs on account of thrombocytopenia Patient's care was discussed in detail with lieutenant shift supervisor and cardiology Charges/Coding Visit Charges Inpatient E&M: 47233 Subs Hosp L3
[2022-03-07] MEDS: CHLORHEXIDINE GLUC 2% CLOTH 1 EACH TOWELETTE TOPICAL (08:51)
[2022-03-07 08:53] LABS: Partial Thromboplast Time > 200.0 Seconds (24.1-36.2)
[2022-03-07] MEDS: Furosemide 40 MG/4 ML Vial IV (08:54)
--- NOTE | 2022-03-07 09:27 | PCM.CONS.C ---
Assessment & Plan Assessment/Plan (1) Elevated troponin: PLAN: The patient is found to have elevated high-sensitivity troponin I levels. At the moment it is unclear whether this represents a non-STEMI from an acute coronary syndrome type I event versus being related to a type II event secondary to his underlying COPD process, acute respiratory failure, and hypoxemia. At the moment his troponin I levels are decreasing. He has had multiple ECGs with no acute ECG changes. He is undergoing further evaluation of his left ventricular wall motion and systolic function with a transthoracic echocardiogram. In the interim he is being treated medically. Based upon concerns of his ability to swallow safely he has not been placed on aspirin therapy. However if he can swallow safely then he could initiate aspirin therapy at 81 mg p.o. daily. He had been placed on IV heparin. Status post review of his other multiple medical issues and review of additional diagnostic studies consideration could be given to other agents as needed such as nitrates, beta-blockers, and afterload reducing agents-taking into consideration his renal insufficiency. Depending upon his overall clinical course and outcome he may or may not be a candidate in the future for further noninvasive or invasive cardiovascular studies. (2) Heart failure: PLAN: The patient presents with findings concerning for underlying CHF. At the moment it is concerning as to whether this may be left heart related, right heart related, or biventricular related. If this is not left heart related and there may be concerns as to whether or not this could be related to his underlying COPD with pulmonary hypertension and cor pulmonale and right heart failure. At the moment he is being monitored as noted above. He will undergo further evaluation with a transthoracic echocardiogram. He is also being treated with diuretic therapy with IV furosemide at 40 mg twice daily. (3) Pleural effusion: PLAN: He does have a right-sided pleural effusion. He will continue medical therapy/diuretic therapy as noted. He may need to be considered for thoracentesis. (4) Ascites: PLAN: He does have ascites. His IV heparin is being interrupted. He is tentatively scheduled for paracentesis sometime this day to assist in diagnosis and care. (5) Cirrhosis: PLAN: His CT scan reports cirrhosis. There is a possibility that if this is not cardiogenic in etiology and perhaps cirrhosis is the etiology for his volume overload, etc. He may need GI evaluation to assist in his ongoing diagnosis and care. (6) Colitis: PLAN: Based upon his CT scan appears there is concern of colitis. Again this will have to be taken into consideration with his overall evaluation and care and need for additional input from other specialties. (7) Acute and chronic respiratory failure with hypercapnia: PLAN: He is being evaluated in the ICU by pulmonology and critical care medicine. Hopefully his O2 status will improve which would be beneficial for his overall condition and assist with his ability to go through additional evaluation and care both cardiac and noncardiac. (8) HLD (hyperlipidemia): PLAN: His lipid labs can be evaluated. He can be considered for medical therapy as deemed appropriate. (9) Hypertension: PLAN: His blood pressure does need to be monitored with respect to changes of hypotension and/or hypertension. His medications can be adjusted taking his blood pressure to consideration as well as his renal insufficiency. (10) Acute renal insufficiency: PLAN: He does have an element of renal insufficiency. This may be related to concerns of heart failure but also may be related to noncardiac etiologies. At the moment he is being monitored. He will continue medical therapy as noted. This does need to be taken into consideration with adjustment of other medications. (11) Thrombocytopenia: PLAN: It appears he also has a history of thrombocytopenia. Its unclear as to whether or not he has an underlying primary hematologic issue versus this being related to his noncardiac/other comorbidities. This does need to be taken into consideration with respect to his ability to be on antiplatelet therapy and anticoagulant therapy and undergo invasive procedures. (12) Parkinsons disease: PLAN: He has a history of Parkinson's disease. He has been on medical therapy for this. Addt'l Comments Comment: Time spent in the patient's overall evaluation, examination, review of medical records, discussion with the medical staff, etc.: 60 minutes. This note was generated using a voice recognition system and there may be incorrect words, spelling or punctuation that were not noted when reviewing the office note prior to saving. HPI Consult Data Date of Consult: 03/07/22 HPI Narrative HPI Narrative: RICHARD PARRY, is a 76 year old white male who presents for cardiovascular consultation based upon concerns of abnormal high-sensitivity troponin I levels with findings of hypoxemia requiring emergency department evaluation and subsequently ICU care with O2 supplement/BiPAP supplement, right-sided pleural effusion, ascites, lower extremity edema, superimposed upon a history of underlying hyperlipidemia, hypertension, diabetes mellitus, COPD/asthma, and Parkinson's disease. According to what the patient recalls and according to a conversation with Dr. Padgett from the [facility] ED staff and according to the [facility] ICU staff, the patient recalls being short of breath, the patient was reportedly found by his daughter saying that she should call 911 based upon concern of difficulty breathing. The EMS arrived and the patient was reported as having an O2 saturation of 53% on room air. He was treated with O2 nasal cannula and subsequently brought to the emergency department for additional evaluation and care. The patient reportedly was somnolent but did respond to a sternal rub by opening his eyes. He was subsequently treated with BiPAP therapy with notation of gradual improvement in his mentation. The patient does not recall having chest discomfort. He recalls feeling short of breath. He does not recall any loss of consciousness episodes. He does believe that his abdomen has been increasing in size and he has had lower extremity edema. He does not recall going through any cardiovascular diagnostic studies or evaluation recently. It does appear the patient had a transthoracic echocardiogram at [facility] on 01-09-2018. The results are noted below. In the emergency department the patient was evaluated. From a cardiac standpoint he was noted to have an elevated high-sensitivity troponin I level at 3990 which is gradually decreased to 3593. His ECG demonstrated normal sinus rhythm with low voltage QRS with nonspecific T wave changes. He has had 2 subsequent ECGs that have demonstrated no acute change. His chest x-ray was reviewed. He had diminished inspiratory effort. There was notation of a right-sided pleural effusion. He also underwent evaluation with a brain CT scan which reported chronic involutional changes and an abdominal/pelvic CT which reported a cirrhotic liver with severe ascites. There is also notation of thickening of the right colon suggesting focal colitis versus a mass-no obstruction was reported. In the ICU this morning he did respond to verbal stimuli. He noted his shortness of breath. He does not recall any other cardiovascular symptoms such as chest discomfort. He did comment on increasing abdominal girth and tenderness as well as increasing edema of the lower extremities. [facility] Medical History (Updated 03/07/22 @ 09:[address] Ozzy Wiggins MD) Anxiety Asthma COPD (chronic obstructive pulmonary disease) Diabetes Former smoker Hyperlipidemia Hypertension Parkinsonian features Home Medications metformin 500 mg 24 hr tablet,extended release 500 mg PO DINNER diabetes 06/26/15 [History Last Taken 06/25/15] tamsulosin 0.4 mg capsule 0.8 mg PO QHS prostate 06/26/15 [History Last Taken 06/25/15] carbidopa 25 mg-levodopa 100 mg tablet 2 tab PO TIDAC parkinsons 09/11/15 [History Last Taken Unknown] empagliflozin 10 mg tablet (Jardiance) 10 mg PO DAILY diabetes 01/09/18 [History Last Taken Unknown] lisinopril 10 mg tablet (Zestril) 10 mg PO DAILY blood pressure 01/09/18 [History Last Taken Unknown] tramadol 50 mg tablet 50 mg PO Q6H PRN pain 3 days #12 tabs 12/02/21 [Rx Last Taken Unknown] levothyroxine 125 mcg tablet (Levoxyl) 125 mcg PO DAILY THYROID 03/06/22 [History Last Taken Unknown] ropinirole 2 mg tablet 2 mg PO QHS RESTLESS LEGS 03/06/22 [History Last Taken Unknown] trazodone 50 mg tablet 30 mg PO DAILY SLEEP 03/06/22 [History Last Taken Unknown] Allergy/AdvReac Type Severity Reaction Status Date / Time aloe vera AdvReac Rash Verified 03/06/22 17:15 diclofenac AdvReac intolerance, Verified 03/06/22 17:15 leg edema Surgical History Hx of hand surgery Social History Smoking Status: Former smoker ROS Constitutional Constitutional: Reports as per HPI Eyes Eyes: Reports as per HPI ENT HEENT: Reports as per HPI Cardiovascular Cardiovascular: Reports dyspnea and edema Respiratory/Chest Respiratory/Chest: Reports dyspnea Gastrointestinal Gastrointestinal: Reports abdominal pain and other Details: Abdominal distention Genitourinary Genitourinary: Reports as per HPI Musculoskeletal Musculoskeletal: Reports as per HPI Neurologic Neurologic: Reports as per HPI Physical Exam Const Orientation / Consciousness: awake HEENT normocephalic, head/scalp atraumatic and hearing grossly normal bilaterally Eyes PERRL, EOMs intact bilaterally, conjunctivae normal and no scleral icterus Neck full ROM, supple and no JVD Resp Auscultation: breath sounds absent right and diminished lung sounds right Cardio regular rate, regular rhythm, S1 normal heart sound and S2 normal heart sound Cardio Narrative: Distant heart tones GI GI Narrative: Abdomen: Appears distended: Positive tenderness to palpation Extremity General Extremity: edema bilateral lower extremity Details: moderate Skin Skin Narrative: Multiple tattoos Psych Psych Narrative: Somnolent: Responds to verbal command Risk Stratification Risk Stratification Applicable: Yes Age >/= 65: Yes >/= 3 CAD Risk Factors (HTN, HLD, DM, family hx of CAD, or current smoker): Yes Aspirin Use in the Past 7 Days: No Severe Angina (>/= episodes in 24 hours): No EKG ST Changes >/= 0.5mm: No Positive Cardiac Marker: Yes ANNIE Risk Stratification Score: 3 ANNIE % Risk: 13% Risk Procedure Criteria Type of Procedure Procedure Type: Elective Elective Risks - COVID COVID Risk Discussion: The surgeon/proceduralist and patient have discussed in detail the risk of exposure to and/or potential harm posed by the COVID-19 virus with having a surgery/procedure at this time versus the risk of delaying the surgery/procedure. It is not possible to know either the risk of delaying the surgery or procedure or chance of getting an infection with perfect accuracy, but a joint decision was made between the patient and the surgeon/proceduralist to proceed at this time with the scheduled surgery/procedure as indicated on the consent form. Objective Data Vital Signs: Vital Signs Temp Pulse Resp BP Pulse Ox O2 Del Method O2 Flow Rate 98.1 F 73 16 97/59 L 94 Bi-pap 5 03/07/22 07:00 03/07/22 07:00 03/07/22 07:00 03/07/22 07:00 03/07/22 07:00 03/07/22 07:00 03/06/22 18:22 FiO2 30 03/07/22 07:00 Oxygen Flow Rate (L/min) 5 Oxygen Delivery Method Bi-pap Weight: 225 lb 5 oz Body Mass Index (BMI) 32.3 Intake & Output: Intake and Output for Last 24 Hours 03/05/22 03/06/22 03/07/22 23:59 23:59 23:59 Intake Total 574.5 / 574.5 105.6 / 105.6 Output Total 750 / 750 Balance 574.5 / 299.5 -644.4 / -644.4 Lab / Micro Data Result Diagrams: 03/07/22 03:11 03/07/22 03:11 Labs: Laboratory Results - last 24 hr 03/06/22 17:10: WBC 9.3, RBC 4.09 L, Hgb 13.4, Hct 43.7, MCV 106.8 H, MCH 32.8 H, MCHC 30.7 L, RDW Std Deviation 63.7 H, RDW Coeff of Jean Claude 16.3 H, Plt Count 181, MPV 9.2, Immature Gran % (Auto) 0.900, Neut % (Auto) 61.3, Lymph % (Auto) 25.0, Grand % (Auto) 11.5 H, Eos % (Auto) 0.8, Baso % (Auto) 0.5, Absolute Neuts (auto) 5.7, Absolute Lymphs (auto) 2.33, Nucleated RBC % 0.2 03/06/22 17:10: Sodium 142, Potassium 4.6, Chloride 107, Carbon Dioxide 33.0 H, Anion Gap 2 L, BUN 46 H, Creatinine 2.35 H, Estim Creat Clear Calc 22.54, Est GFR (MDRD) Af Amer 35 L, Est GFR (MDRD) Non-Af 29 L, BUN/Creatinine Ratio 19.6, Glucose 149 H, Calcium 8.4 L, Total Bilirubin 1.40 H, Direct Bilirubin 0.60 H, AST 54 H, ALT 27, Alkaline Phosphatase 125 H, Troponin I High Sens 3990 H*, Total Protein 7.2, Albumin 2.6 L, Globulin 4.6 H, Lipase 339 03/06/22 17:10: Lactic Acid 2.5 H* 03/06/22 17:10: B-Natriuretic Peptide 1742.8 H 03/06/22 17:10: PT 16.5 H, INR 1.4, APTT 34.0 03/06/22 17:55: Ammonia 33.0 H 03/06/22 18:45: Urine Color Jill, Urine Clarity Clear, Urine pH 5.0, Ur Specific [place] 1.025, Urine Protein 100 H, Urine Glucose (UA) Normal, Urine Ketones 5 H, Urine Occult Blood 10 H, Urine Nitrite Negative, Urine Bilirubin 3 H, Urine Urobilinogen 4 H, Ur Leukocyte Esterase 25 H, Urine RBC 0 SEEN, Urine WBC 0-5 SEEN, Ur Squamous Epith Cells 0 SEEN, Urine Bacteria RARE, Urine Mucus 0 SEEN 03/06/22 22:10: Troponin I High Sens 3771 H* 03/06/22 22:10: Lactic Acid 1.8 03/06/22 23:28: POC Glucose 115 H 03/06/22 23:29: Troponin I High Sens 3593 H* 03/07/22 03:11: WBC 7.7, RBC 3.43 L, Hgb 11.7 L, Hct 36.7 L, MCV 107.0 H, MCH 34.1 H, MCHC 31.9 L, RDW Std Deviation 64.5 H, RDW Coeff of Jean [place] 16.4 H, Plt Count 119 L, MPV 9.0, Immature Gran % (Auto) 0.500, Neut % (Auto) 68.6, Lymph % (Auto) 16.7 L, Grand % (Auto) 13.2 H, Eos % (Auto) 0.7, Baso % (Auto) 0.3, Absolute Neuts (auto) 5.3, Absolute Lymphs (auto) 1.28, Nucleated RBC % 0 03/07/22 03:11: Sodium 145, Potassium 4.6, Chloride 106, Carbon Dioxide 34.0 H, Anion Gap 5, BUN 50 H, Creatinine 2.36 H, Estim Creat Clear Calc 26.64, Est GFR (MDRD) Af Amer 34 L, Est GFR (MDRD) Non-Af 29 L, BUN/Creatinine Ratio 21.2 H, Glucose 146 H, Calcium 8.1 L, Total Bilirubin 1.20 H, AST 42 H, ALT 24, Alkaline Phosphatase 97, Total Protein 5.9 L, Albumin 2.1 L, Globulin 3.8, Albumin/Globulin Ratio 0.6 L 03/07/22 03:11: APTT > 200.0 H* 03/07/22 03:11: Magnesium 2.1, TSH 8.29 H 03/07/22 05:34: POC Glucose 169 H 03/07/22 08:00: APTT > 200.0 H* ABG Data ABG results: ABG 03/06/22 03/06/22 18:02 22:45 Specimen Type ART ART Sample Site L Radial R Radial pH 7.23 L 7.27 L Bicarbonate Actual 35.1 H 32.6 H Total CO2 38 35 Base Excess 8 H 6 H O2 Saturation 97 94 L O2 % 30 ABG pCO2 84.8 H* 70.3 H* ABG pO2 109 H 83 Jonah Test Positive Positive Respiration Rate 14 O2 Delivery Device Cannula BiPAP Liter Flow 5.0 Tidal Volume 300 POC PEEP 8 Crit Call To/Read Back Yes Yes Blood Gas Notified Whom marty Tapia Clinical Comments [facility] Labs/Tests 03/06/22 17:10: WBC 9.3, RBC 4.09 L, Hgb 13.4, Hct 43.7, MCV 106.8 H, MCH 32.8 H, MCHC 30.7 L, Plt Count 181, MPV 9.2, Immature Gran % (Auto) 0.900, Neut % (Auto) 61.3, Lymph % (Auto) 25.0, Grand % (Auto) 11.5 H, Eos % (Auto) 0.8, Baso % (Auto) 0.5, Absolute Neuts (auto) 5.7, Nucleated RBC % 0.2 03/06/22 17:10: Sodium 142, Potassium 4.6, Chloride 107, Carbon Dioxide 33.0 H, Anion Gap 2 L, BUN 46 H, Creatinine 2.35 H, Est GFR (MDRD) Af Amer 35 L, Est GFR (MDRD) Non-Af 29 L, BUN/Creatinine Ratio 19.6, Glucose 149 H, Calcium 8.4 L, Total Bilirubin 1.40 H, Direct Bilirubin 0.60 H 03/06/22 17:10: Lactic Acid 2.5 H* 03/06/22 17:10: B-Natriuretic Peptide 1742.8 H 03/06/22 17:10: PT 16.5 H, INR 1.4, APTT 34.0 03/06/22 18:02: pH 7.23 L, Bicarbonate Actual 35.1 H, Base Excess 8 H, O2 Saturation 97, ABG pCO2 84.8 H*, ABG pO2 109 H, Jonah Test Positive 03/06/22 18:45: Urine Color Jill, Urine Clarity Clear, Urine pH 5.0, Ur Specific [place] 1.025, Urine Protein 100 H, Urine Glucose (UA) Normal, Urine Ketones 5 H, Urine Occult Blood 10 H, Urine Nitrite Negative, Urine Bilirubin 3 H, Urine Urobilinogen 4 H, Ur Leukocyte Esterase 25 H, Urine RBC 0 SEEN, Urine WBC 0-5 SEEN 03/06/22 22:10: Lactic Acid 1.8 03/06/22 22:45: pH 7.27 L, Bicarbonate Actual 32.6 H, Base Excess 6 H, O2 Saturation 94 L, ABG pCO2 70.3 H*, ABG pO2 83, Jonah Test Positive 03/07/22 03:11: WBC 7.7, RBC 3.43 L, Hgb 11.7 L, Hct 36.7 L, MCV 107.0 H, MCH 34.1 H, MCHC 31.9 L, Plt Count 119 L, MPV 9.0, Immature Gran % (Auto) 0.500, Neut % (Auto) 68.6, Lymph % (Auto) 16.7 L, Grand % (Auto) 13.2 H, Eos % (Auto) 0.7, Baso % (Auto) 0.3, Absolute Neuts (auto) 5.3, Nucleated RBC % 0 03/07/22 03:11: Sodium 145, Potassium 4.6, Chloride 106, Carbon Dioxide 34.0 H, Anion Gap 5, BUN 50 H, Creatinine 2.36 H, Est GFR (MDRD) Af Amer 34 L, Est GFR (MDRD) Non-Af 29 L, BUN/Creatinine Ratio 21.2 H, Glucose 146 H, Calcium 8.1 L, Total Bilirubin 1.20 H 03/07/22 03:11: APTT > 200.0 H* 03/07/22 03:11: Magnesium 2.1 03/07/22 08:00: APTT > 200.0 H* Rhythm: Sinus rhythm; intermittent ectopic atrial rhythm EKG: As noted above ECHO: 01-09-2018 Reason For Study: Syncope Procedure This was a 2D Doppler, Color Flow transthoracic echocardiogram. The study was technically difficult. Exam performed portable in patient room. Left Ventricle Normal LV size. Left ventricular systolic function is normal. The estimated ejection fraction is 60 %. Stage 1 diastolic dysfunction. No regional wall motion abnormalities noted. Right Ventricle Normal RV size. Normal systolic function. Atria Normal left atrium. Normal right atrium. Mitral Valve Normal mitral valve. Tricuspid Valve Normal tricuspid valve. Mild (1+) tricuspid valve insufficiency. Pulmonary artery systolic pressure is 36 mmHg. Aortic Valve The aortic valve is not well visualized. Pulmonic Valve The pulmonic valve is not well visualized. Great Vessels Normal aortic root. The pulmonary artery is normal size. Pericardium/Pleural No pericardial effusion. MMode/2D Measurements & Calculations LVIDd: 3.6 cm ? IVSd: 0.92 cm ? LAV(MOD-sp4): 39.1 ml RVDd: 3.1 cm? LVPWd: 0.95 cm ? LVAd ap4: 29.0 cm2? SV(MOD-sp4): 59.0 ml? SV(sp4-el): 64.3 ml EDV(MOD-sp4): 88.3 ml EDV(sp4-el): 92.4 ml LVAs ap4: 14.4 cm2 ESV(MOD-sp4): 29.3 ml ESV(sp4-el): 28.1 ml EF(MOD-sp4): 66.9 % EF(sp4-el): 69.6 % ? LA A4 area: 15.7 cm2? RA A4 area: 13.7 cm2 Time Measurements MV dec time: 0.35 sec Doppler Measurements & Calculations MV E max angelo: 71.7 cm/sec? ? ? Lat Peak E' Angelo: 13.1 cm/sec ? ? ? Med Peak E' Angelo: 12.8 cm/sec MV A max angelo: 86.4 cm/sec? ? ? E/E' lat: 5.5? E/E' med: 5.6 MV E/A: 0.83 ? MV V2 max: 108.3 cm/sec? MV P1/2t max angelo: 94.2 cm/sec? ? ? Ao V2 max: 163.6 cm/sec MV max P.7 mmHg? MV P1/2t: 98.9 msec? Ao max P.7 mmHg MV V2 mean: 56.0 cm/sec ? Ao V2 mean: 101.9 cm/sec MV mean P.5 mmHg ? MV dec slope: 279.0 cm/sec2? Ao mean P.9 mmHg MV V2 VTI: 31.9 cm ? MVA(P1/2t): 2.2 cm2? Ao V2 VTI: 30.8 cm ? LV V1 max: 126.1 cm/sec? PA V2 max: 123.6 cm/sec? TR max angelo: 280.5 cm/sec LV V1 max P.4 mmHg? TR max P.5 mmHg LV V1 mean P.4 mmHg LV V1 mean: 87.0 cm/sec LV V1 VTI: 27.5 cm Interpretation Summary Normal LV size. Left ventricular systolic function is normal. The estimated ejection fraction is 60 %. Stage 1 diastolic dysfunction. Pulmonary artery systolic pressure is 36 mmHg. Ordering Physician: Rohith Vann Referring Physician: Radha Torres Performed By: Satish Mike RCS Radiography Diagnostic Testing: Radiology Impression Abdomen/Pelvis CT 03/06/22 17:42 IMPRESSION: Cirrhotic liver. Severe ascites. Wall thickening of the right colon suggesting focal colitis versus mass. No obstruction. Electronically Signed: Eamon Bang MD at 18:51 EST , Brain CT 03/06/22 17:42 IMPRESSION: Chronic involutional changes of the brain. Electronically Signed: Eamon Bang MD at 18:37 EST , Chest X-Ray 03/06/22 18:18 IMPRESSION: Bilateral edema or pneumonia. Right pleural effusion Electronically Signed: Eamon Bang MD at 18:46 EST ,
--- NOTE | 2022-03-07 11:55 | CASEMGMT ---
JACOB NEWMAN Assessment: Face to Face with pt for initial transition planning/care coordination assessment. JACOB NEWMAN introduced self and role at [facility], pt voices understanding. Pt is on bipap and agreed to dtr who is present in the room to answer assessment questions. Care providers, pharmacy, and demographics verified/updated. Assessment completed per dtr. Admitting Dx: acute heart failure PCP:Ken Specialists:None Preferred Pharmacy: [facility] Insurance: [facility], [employer] Prescription Benefit: yes LNOK: Maryanne Vargas, dtr Living Arrangements: Pt lives with dtr in a single story home with 2-3 steps to enter with a rail. Dtr states pt was I in ADL's prior to this hospitalization. Transportation: Pt drove self prior to hospitalization. DME/HHC/SNF: Pt has a cane and walker but does not typically use. They are in his car. Pt reports he does not check his blood sugars. Pt has had HHC in the past but dtr is unsure of name of agency. Pt has not had any hx of SNF stays. CM to follow. Advised pt/dtr to ask CM if any further question/concerns/needs arise, voices understanding. Pt Goal: Did not state, pt dtr would like pt to return home. Plan: TBD
[2022-03-07 12:30] LABS: Bedside Glucose 99 mg/dL (74-106)
--- NOTE | 2022-03-07 12:32 | FLU_PTH ---
PATIENT: RICHARD PARRY LOC: [facility] U#:[id number] AGE/SX: 76/M [facility] RE03/06/[address]: Dr. Rohith Vann MD : [id number] BED: 1 DIS: 03/13/2022 SPEC #: [id number] RECD: 03/07/22 12:54 STATUS: WOODY REQ #: [id number] DONNIE: 03/07/22 12:[address]: Claribel Hernandez DEPT: CYTOLOGY RECD BY: April Fermin ENTERED: 03/07/22 13:45 SP TYPE: Fluid OTHR DR: MD Dr. Ryan Peck MD Dr. Mark Elderbrock, MD Dr. Nagapradee Nagajothi, MD Dr. Rahsaan Friend, DO Tissues: Abdomen, NOS Procedures: Special Stain Group II Surgery Specimen Level IV Cytospin Fluid HEADER OPERATION: Paracentesis PRE-OP DIAGNOSIS: Ascites TISSUE SUBMITTED: Paracentesis fluid for cytology DIAGNOSIS CYTOLOGY Paracentesis fluid for cytology (cytospin and cell block): Negative for malignant cells. See comment. CAROLYN:liset 03/08/2022 COMMENT Clinical correlation and appropriate follow up are necessary. CYTOLOGY STUDY Slides are reviewed. CYTOLOGY GROSS Received is 80 ml of yellow cloudy fluid labeled with the patient's name and and designated per the requisition as paracentesis. Submitted for cytology preparation including cell block. / liset 03/07/2022 TC:5 CPT: 96491, 87452
[2022-03-07] MEDS: Lidocaine 2% (20 ml mdv) 20 ML Vial INFILT (12:35)
[2022-03-07 13:01] LABS: Cytology, Body Fluid / CSF SEE PATHOLOGY REPORT
[2022-03-07 13:29] LABS: Body Fluid Mononuclear WBC # 0.048 10^3/uL; Body Fluid Mononuclear WBC % 90.6 %; Body Fluid Polynuclear WBC # 0.005 10^3/uL; Body Fluid Polynuclear WBC % 9.4 %; Body Fluid Total Cells Counted 0.075 10^3/ul; White Blood Count/Body Fluid 0.053 10^3/uL
[2022-03-07 13:54] LABS: Glucose, Body Fluid 137 mg/dL (40-70); LDH,Body Fluid 62 Units/l (Not Establ.)
--- NOTE | 2022-03-07 14:05 | RAD_ITS ---
STUDY: X-RAY CHEST REASON FOR EXAM: Male, 76 years old. Pleural effusion TECHNIQUE: Single AP portable view of the chest. COMPARISON: Comparison is made with prior study dated 03/03/2022. FINDINGS: EKG electrodes are seen. Small residual right pleural effusion with right basilar atelectasis. This has improved as compared to prior study. The left lung is clear. There is no demonstrated pleural abnormality. Normal size heart. Normal mediastinum and kenny. There is prominence of the pulmonary hilar arteries without peripheral pulmonary vascular congestion, suggesting pulmonary hypertension. There is atherosclerotic calcification of the aortic arch with tortuosity. There are diffuse degenerative changes of the visualized thoracic spine. Healed left rib fractures. There is no demonstrated abnormality of the visualized soft tissue structures of the upper abdomen. RAD/Chest 1 View (Portable) IMPRESSION: Interval decrease in the pleural parenchymal changes at the right lung base. The left lung is clear. Electronically Signed: Manuelito Mathews MD at 14:19 EST ,
[2022-03-07] MEDS: Albumin Human 25% (100 mL) 25 GM/100 ML BAG IV ×4 (14:20→19:01)
[2022-03-07 15:07] LABS: Lymphocytes 27 %; Monocytes 68 %; Neutrophil (Segs) 5 %
[2022-03-07 15:10] LABS: Appearance/Body Fluid CLEAR; Auto B Fluid Analyzer BKGD Ct COUNTS W/IN LIMITS (W/IN LIMITS); Color/Body Fluid YELLOW; Source- Body Fluid OTHER
[2022-03-07 15:11] LABS: Red Cell Count/Body Fluid 101 /mm3
[2022-03-07 15:29] LABS: Body Fluid QC Type(s) BF2Q,BF3Q
--- NOTE | 2022-03-07 17:24 | CON.PCM.GI_ITS ---
HPI Consult Data Date of Consult: 03/07/22 HPI Narrative Reason for Consultation: Cirrhosis HPI Narrative: RICHARD PARRY, is a 76 M who presented to the ED with worsening shortness of breath and confusion. Most of the history is obtained from the chart and the patient's daughter and who is at the bedside. He has a past medical hi story of diabetes mellitus, hypertension, CKD, COPD not on home oxygen Patient was seen in the emergency room earlier this month and diagnosed with a UTI.? Daughter believes he completed his antibiotic course.? In the ED he was discovered to have congestive heart failure and was diagnosed with a non-ST segment elevation [place]. He was started on heparin drip. He got a CT scan abdomen pelvis due to worsening abdominal distention and he was discovered to have large volume ascites and a small cirrhotic liver along with bilateral pleural effusions. He is currently being seen by cardiology. I was asked to see him for newly diagnosed cirrhosis. He has a history of thrombocytopenia for many years from unknown diagnosis. About a year ago he was diagnosed with Parkinson's disease and has been having memory difficulties that was attributed to Parkinson's. He has no history of alcoholism or alcohol abuse. He has had diabetes for 30 years has no family history of liver disease. He does have multiple tattoos. He has no history of hepatitis C. Since being admitted to the hospital he underwent large-volume paracentesis and had 6800 mL of serosanguineous fluid removed. His SAG gradient from his paracentesis fluid was less than 1.1 and consistent with cirrhosis. Cytology is pending. He is currently getting albumin. When he came into the hospital his hemoglobin is 13.7 and is down to 11.9. He has not had any bowel movement since being in the hospital and currently his heparin drip is off. He had an echocardiogram today but the results are pending. As per his daughter and his w falguni he has been sleeping a lot today. [facility] Medical History (Updated 03/07/22 @ 17:[address] Connors Friend, ) Anxiety Asthma COPD (chronic obstructive pulmonary disease) Diabetes Former smoker Hyperlipidemia Hypertension Parkinsonian features Home Medications metformin 500 mg 24 hr tablet,extended release 500 mg PO DINNER diabetes 06/26/15 [History Last Taken 06/25/15] tamsulosin 0.4 mg capsule 0.8 mg PO QHS prostate 06/26/15 [History Last Taken 06/25/15] carbidopa 25 mg-levodopa 100 mg tablet 2 tab PO TIDAC parkinsons 09/11/15 [History Last Taken Unknown] empagliflozin 10 mg tablet (Jardiance) 10 mg PO DAILY diabetes 01/09/18 [History Last Taken Unknown] lisinopril 10 mg tablet (Zestril) 10 mg PO DAILY blood pressure 01/09/18 [History Last Taken Unknown] tramadol 50 mg tablet 50 mg PO Q6H PRN pain 3 days #12 tabs 12/02/21 [Rx Last Taken Unknown] levothyroxine 125 mcg tablet (Levoxyl) 125 mcg PO DAILY THYROID 03/06/22 [History Last Taken Unknown] ropinirole 2 mg tablet 2 mg PO QHS RESTLESS LEGS 03/06/22 [History Last Taken Unknown] trazodone 50 mg tablet 30 mg PO DAILY SLEEP 03/06/22 [History Last Taken Unknown] Allergy/AdvReac Type Severity Reaction Status Date / Time aloe vera AdvReac Rash Verified 03/06/22 17:15 diclofenac AdvReac intolerance, Verified 03/06/22 17:15 leg edema Surgical History Hx of hand surgery Social History Smoking Status: Former smoker ROS Review of Systems ROS Unobtainable: due to mental status Physical Exam Const Orientation / Consciousness: awake HEENT normocephalic, head/scalp atraumatic and hearing grossly normal bilaterally Eyes PERRL, EOMs intact bilaterally, conjunctivae normal and no scleral icterus Neck full ROM, supple and no JVD Resp Auscultation: breath sounds absent right and diminished lung sounds right Cardio regular rate, regular rhythm, S1 normal heart sound and S2 normal heart sound Cardio Narrative: Distant heart tones GI GI Narrative: Abdomen: Appears distended: Positive tenderness to palpation Extremity General Extremity: edema bilateral lower extremity Details: moderate Skin Skin Narrative: Multiple tattoos Psych Psych Narrative: Somnolent: Responds to verbal command Lab / Micro Data Result Diagrams: 03/07/22 03:11 03/07/22 03:11 Labs: Laboratory Results - last 24 hr 03/06/22 17:10: WBC 9.3, RBC 4.09 L, Hgb 13.4, Hct 43.7, MCV 106.8 H, MCH 32.8 H , MCHC 30.7 L, RDW Std Deviation 63.7 H, RDW Coeff of Jean Claude 16.3 H, Plt Count 181, MPV 9.2, Immature Gran % (Auto) 0.900, Neut % (Auto) 61.3, Lymph % (Auto) 25.0, Cannon % (Auto) 11.5 H, Eos % (Auto) 0.8, Baso % (Auto) 0.5, Absolute Neuts (auto) 5.7, Absolute Lymphs (auto) 2.33, Nucleated RBC % 0.2 03/06/22 17:10: Sodium 142, Potassium 4.6, Chloride 107, Carbon Dioxide 33.0 H, Anion Gap 2 L, BUN 46 H, Creatinine 2.35 H, Estim Creat Clear Calc 22.54, Est GFR (MDRD) Af Amer 35 L, Est GFR (MDRD) Non-Af 29 L, BUN/Creatinine Ratio 19.6, Glucose 149 H, Calcium 8.4 L, Total Bilirubin 1.40 H, Direct Bilirubin 0.60 H, AST 54 H, ALT 27, Alkaline Phosphatase 125 H, Troponin I High Sens 3990 H*, Total Protein 7.2, Albumin 2.6 L, Globulin 4.6 H, Lipase 339 03/06/22 17:10: Lactic Acid 2.5 H* 03/06/22 17:10: B-Natriuretic Peptide 1742.8 H 03/06/22 17:10: PT 16.5 H, INR 1.4, APTT 34.0 03/06/22 17:55: Ammonia 33.0 H 03/06/22 18:45: Urine Color Jill, Urine Clarity Clear, Urine pH 5.0, Ur Specific [place] 1.025, Urine Protein 100 H, Urine Glucose (UA) Normal, Urine Ketones 5 H, Urine Occult Blood 10 H, Urine Nitrite Negative, Urine Bilirubin 3 H, Urine Urobilinogen 4 H, Ur Leukocyte Esterase 25 H, Urine RBC 0 SEEN, Urine WBC 0-5 SEEN, Ur Squamous Epith Cells 0 SEEN, Urine Bacteria RARE, Urine Mucus 0 SEEN 03/06/22 22:10: Troponin I High Sens 3771 H* 03/06/22 22:10: Lactic Acid 1.8 03/06/22 23:28: POC Glucose 115 H 03/06/22 23:29: Troponin I High Sens 3593 H* 03/07/22 03:11: WBC 7.7, RBC 3.43 L, Hgb 11.7 L, Hct 36.7 L, MCV 107.0 H, MCH 34.1 H, MCHC 31.9 L, RDW Std Deviation 64.5 H, RDW Coeff of Jean Claude 16.4 H, Plt Count 119 L, MPV 9.0, Immature Gran % (Auto) 0.500, Neut % (Auto) 68.6, Lymph % (Auto) 16.7 L, Cannon % (Auto) 13.2 H, Eos % (Auto) 0.7, Baso % (Auto) 0.3, Absolute Neuts (auto) 5.3, Absolute Lymphs (auto) 1.28, Nucleated RBC % 0 03/07/22 03:11: Sodium 145, Potassium 4.6, Chloride 106, Carbon Dioxide 34.0 H, Anion Gap 5, BUN 50 H, Creatinine 2.36 H, Estim Creat Clear Calc 26.64, Est GFR (MDRD) Af Amer 34 L, Est GFR (MDRD) Non-Af 29 L, BUN/Creatinine Ratio 21.2 H, Glucose 146 H, Calcium 8.1 L, Total Bilirubin 1.20 H, AST 42 H, ALT 24, Alkaline Phosphatase 97, Total Protein 5.9 L, Albumin 2.1 L, Globulin 3.8, Albumin/Globulin Ratio 0.6 L 03/07/22 03:11: APTT > 200.0 H* 03/07/22 03:11: Magnesium 2.1, TSH 8.29 H 03/07/22 05:34: POC Glucose 169 H 03/07/22 08:00: APTT > 200.0 H* 03/07/22 12:10: POC Glucose 99 03/07/22 12:32: Fluid Glucose 137 H, Fluid Total Protein 1.0, Fluid LDH 62 03/07/22 12:32: Fluid Source OTHER, Fluid Color YELLOW, Fluid Appearance CLEAR, Fluid WBC 0.053, Fluid RBC 101, Fluid Tot Cell Count 0.075, Fld Polynuclear WBCs # 0.005, Fld Polynuclear WBCs % 9.4, Fluid Mononuclear WBCs 0.048, Fld Mononuclear WBCs % 90.6, Fluid Neutrophils 5, Fluid Lymphocytes 27, Fluid Monocytes 68, Fl Pathologist Comment May follow, Fluid Comment 2 Not Reportable ABG Data ABG results: ABG 03/06/22 03/06/22 18:02 22:45 Specimen Type ART ART Sample Site L Radial R Radial pH 7.23 L 7.27 L Bicarbonate Actual 35.1 H 32.6 H Total CO2 38 35 Base Excess 8 H 6 H O2 Saturation 97 94 L O2 % 30 ABG pCO2 84.8 H* 70.3 H* ABG pO2 109 H 83 Jonah Test Positive Positive Respiration Rate 14 O2 Delivery Device Cannula BiPAP Liter Flow 5.0 Tidal Volume 300 POC PEEP 8 Crit Call To/Read Back Yes Yes Blood Gas Notified Whom marty Tapia Clinical Comments [facility] Radiology Impression Abdomen/Pelvis CT 03/06/22 17:42 IMPRESSION: Cirrhotic liver. Severe ascites. Wall thickening of the right colon suggesting focal colitis versus mass. No obstruction. Electronically Signed: Eamon Bang MD at 18:51 EST , Brain CT 03/06/22 17:42 IMPRESSION: Chronic involutional changes of the brain. Electronically Signed: Eamon Bang MD at 18:37 EST Reading Location ID and State: [id number] / [place] , Service support , Chest X-Ray 03/06/22 18:18 IMPRESSION: Bilateral edema or pneumonia. Right pleural effusion Electronically Signed: Eamon Bang MD at 18:46 EST , Echocardiogram 03/06/22 21:47 Interpretation Summary The study was technically difficult. Contrast injection was performed. Based upon the 2D echocardiographic and contrast enhanced images obtained there appears to be grossly normal left ventricular size, wall motion, and systolic function. The estimated ejection fraction is 65 %. Based upon the 2D echocardiographic and contrast enhanced images obtained there appears to be right ventricular dilatation and global right ventricular systolic dysfunction. Trivial mitral valve insufficiency. Trivial tricuspid valve insufficiency. Right ventricular systolic pressure estimated to be 35 mmHg. No evidence for diastolic dysfunction. Comment: Echo lucency potentially compatible with ascites Ordering Physician: Ryan Tapia Referring Physician: MD Ken Edis Performed By: Kizzy Benoit RCS Paracentesis Ultrasound 03/07/22 05:32 IMPRESSION: Ultrasound guided paracentesis. Electronically Signed: Manuelito Mathews MD at 13:37 EST , Chest X-Ray 03/07/22 14:05 IMPRESSION: Interval decrease in the pleural parenchymal changes at the right lung base. The left lung is clear. Electronically Signed: Manuelito Mathews MD at 14:19 EST , Chest Ultrasound 03/07/22 21:47 IMPRESSION: Not enough fluid for safe thoracentesis. Electronically Signed: Manuelito Mathews MD at 13:35 EST , Assessment & Plan Assessment/Plan (1) Acute and chronic respiratory failure with hypercapnia: PLAN: Patient's repeat imaging showed his pleural effusions have improved since undergoing large-volume paracentesis. 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 Recommend diuretic therapy to hopefully prevent from redevelopment of ascites which is likely being siphon up into the lungs. Repeat chest x-ray tomorrow. (2) Cirrhosis: PLAN: His current meld is 20. He is a child class C with decompensated cirrhosis secondary to likely Mo cirrhosis complicated by ascites, hepatic hydrothorax possible hepatorenal syndrome type II. He is getting albumin. I would add midodrine 10 mg p.o. 3 times daily and continue gentle diuresis. Await biochemical work-up including antimitochondrial antibody to see if he would benefit from ursodiol, anti-smooth muscle antibody see if he would benefit from azathioprine or low-dose steroids, chronic hepatitis C or B to see if he would benefit from antiviral therapy, ferritin level to see if he has any level of secondary primary hemochromatosis secondary to cirrhosis. We will also need alpha-fetoprotein to screen him for hepatocellular carcinoma. (3) Ascites: PLAN: . His SAG gradient is less than 1.1 and is consistent with cirrhosis. Await cytology. Recommend Lasix 40 mg in a.m. and spironolactone 50 mg in the p.m. (4) Bicytopenia: PLAN: Patient is hemoglobin is decreasing. He will likely need a EGD to screen for varices because if he does have a slow GI bleed secondary to portal gastropathy, varices then it would make it very difficult to control his mental status due to slow blood loss anemia. Keep n.p.o. past midnight. Charges/Coding Visit Charges Inpatient E&M: 38405 Init Hosp L3
[2022-03-07] MEDS: Carbidopa/Levodopa 25/100 Tablet PO (17:49)
[2022-03-07 18:00] LABS: Bedside Glucose 98 mg/dL (74-106)
[2022-03-07 18:59] LABS: Ferritin 160 ng/mL (26-388); Iron 26 ug/dL (65-175); Iron Binding Capacity,Total 136 ug/dL (250-450); PERCENT IRON SATURATION 19.1 % (15.0-55.0)
[2022-03-07] MEDS: rifAXIMin 550 MG Tablet PO (21:33)
[2022-03-07] MEDS: Tamsulosin HCl 0.4 MG Capsule 0.8 MG PO (21:34)
[2022-03-07] MEDS: Pramipexole Di-HCl 1 MG Tablet PO (21:34)
[2022-03-07] MEDS: Lactulose 20 GM/30 ML UDC PO (21:35)
--- NOTE | 2022-03-07 21:47 | US_ITS ---
STUDY: SUPERFICIAL ULTRASOUND - RIGHT HEMITHORAX. REASON FOR EXAM: Male, 76 years old. Pleural effusion -- PARA TODAY - THORA 03/08 TECHNIQUE: A superficial ultrasound was performed with real-time and static martin-scale imaging. COMPARISON: None. FINDINGS: Imaging of the right pleural space was obtained. There is a minimal right pleural effusion. Not enough fluid for safe thoracentesis. US/Chest IMPRESSION: Not enough fluid for safe thoracentesis. Electronically Signed: Manuelito Mathews MD at 13:35 EST ,
[2022-03-08] VITALS (35 sets, daily range): BP systolic 96–129; BP diastolic 39–85; PULSE 68–118; RESP 12–23; TEMP 35.9–36.8; O2SAT 90–100; BMI 29.7
[2022-03-08 01:51] LABS: Bedside Glucose 147 mg/dL (74-106)
[2022-03-08 03:36] LABS: Absolute Lymphocyte Count 0.76 X10^3/uL (0.83-4.51); Absolute Neutrophil Count 2.2 X10^3/uL (2.0-7.7); Basophil# 0.01 X10^3/uL; Basophil% 0.3 % (0-1); Eosinophil# 0.05 X10^3/uL; Eosinophils% 1.4 % (0-5); Hematocrit 29.9 % (40-54); Lymphocyte # 0.76 X10^3/ul (0.83-4.51); Lymphocyte % 21.8 % (19-41); Mean Corp Hgb Conc 30.1 g/dL (32-36); Mean Corpuscular Hgb 32.8 pg (27.0-32.0); Mean Corpuscular Volume 109.1 fL (80-94); Mean Platelet Vol. 9.2 fl (6.2-12.0); Monocyte# 0.42 X10^3/uL; NRBC Flagged by Analyzer 0 % (0-5); Neutrophil # 2.23 X10^3/uL (2.7-7.7); Neutrophil % 63.9 % (47-70); POSITIVE COUNT YES; Platelet Count 86 K/mm3 (150-450); RBC Distribution Width CV 15.9 % (11.6-14.6); RBC Distribution Width SD 62.9 fl (35.1-43.9); Red Blood Count 2.74 M/mm3 (4.6-6.2); White Blood Count 3.5 K/mm3 (4.4-11.0)
[2022-03-08 03:37] LABS: Differential Indicated SCAN CRITERIA MET
[2022-03-08 03:58] LABS: ALB/GLOB Ratio 1.1 RATIO (0.9-2.4); AST(SGOT) 36 U/L (15-37); Alanine Aminotransfer ALT/SGPT < 6 U/L (16-61); Albumin, Serum 2.9 g/dL (3.2-5.0); Alkaline Phosphatase 69 U/L (45-117); Anion Gap 4 (5-15); BUN 56 mg/dL (7-18); BUN/Creat Ratio 23.5 RATIO (10-20); Calcium,Total 7.5 mg/dL (8.5-10.1); Chloride 103 mmol/L (98-107); Creatinine, Serum 2.38 mg/dL (0.70-1.30); EST Glomerular Filtration Rate 28 mL/min (>60); Est Glom Filt Rate - Afr Amer 34 mL/min (>60); Estimated Creatinine Clearance 26.41 ml/min; Globulin 2.6 g/dL (2.2-4.2); Glucose 114 mg/dL (74-106); Potassium 4.2 mmol/L (3.5-5.1); Protein, Total 5.5 g/dL (6.4-8.2); Sodium Level 143 mmol/L (136-145)
[2022-03-08 04:02] LABS: Differential Comment SCANNED; Platelet Estimate SLT DEC (ADEQ)
[2022-03-08] MEDS: Carbidopa/Levodopa 25/100 Tablet PO ×2 (05:28→14:55)
[2022-03-08] MEDS: Levothyroxine 125 MCG Tablet PO (05:28)
[2022-03-08 05:51] LABS: Bedside Glucose 113 mg/dL (74-106)
--- NOTE | 2022-03-08 08:01 | PN.CC_ITS ---
Assessment & Plan Assessment/Plan (1) Acute and chronic respiratory failure with hypercapnia: (2) Ascites: (3) Cirrhosis: (4) Diabetes mellitus: QUALIFIERS: Diabetes mellitus type: type 2 Diabetes mellitus complication detail: with polyneuropathy PLAN: Plan RECOMMENDATIONS: 1. Consider adding midodrine if hypotensive 2. Await GI work-up 3. Encourage incentive spirometer and out of bed as tolerated 4. Await further GI and cardiology recommendations 5. Continue lactulose and rifaximin 6. Likely no indication for steroid therapy 7. Potential transfer from the intensive care unit later today IMPRESSIONS: 1. Acute on chronic hypercarbic respiratory failure secondary to massive ascites, in the setting of COPD/asthma overlap Patient with new right-sided pleural effusion. This has not been documented previously, but patient does have significant ascites, so perihepatic leak would be suspected. Recommend a paracentesis prior to thoracentesis. Given colonic thickening, malignancy would be a concern. Cirrhosis would also be a concern. Patient appeared to have compressive atelectasis on presentation, not a pleural effusion. 2. Elevated troponin/Acute on chronic diastolic CHF/suspected type II pulmonary hypertension Patient currently on a heparin drip. Echocardiogram from 2018 did show diastolic dysfunction with an EF of 60%. Patient did have elevated pulmonary artery pressures of 36 mmHg with evidence of right ventricular dysfunction. Cardiology has been consulted. Some concern patient has an element of elevated troponin secondary to global hypoxia with a type II NSTEMI. 3. Cirrhosis with possible colon mass and ascites Unclear if patient has a known diagnosis of cirrhosis. GI has been consulted. Clinical suspicion is ascites has led to the pleural effusion and we would expect a transudate pattern on laboratory testing. If this is exudate, aggressive investigation for malignancy would be warranted. Patient is not showing any signs or symptoms of a GI bleed, but has had some hematuria complaints recently per the documentation. 4. Diabetes mellitus type 2/anxiety/Parkinson's features/hypertension/hyperlipidemia/obesity/advanced age Complicates care, management, recovery and prognosis. We will attempt to avoid steroids as this will worsen hyperglycemia and mentation. Okay to continue with parkinsonian medications from my perspective. Could consider discontinuation with ropinirole as this could make Parkinson's features worse. Subjective Subjective Patient did okay overnight. Patient was on 2 L nasal cannula for most of the day and tolerated BiPAP with sleep. Patient did have a large volume paracentes is yesterday with some intermittent low blood pressure, but no intervention has been required. Objective Data Objective Data Vital Signs: Vital Signs Temp Pulse Resp BP Pulse Ox O2 Del Method O2 Flow Rate 36.2 C L 71 21 H 119/51 L 98 Bi-pap 2 03/08/22 07:00 03/08/22 07:00 03/08/22 07:00 03/08/22 07:00 03/08/22 07:00 03/08/22 07:00 03/08/22 02:00 FiO2 30 03/08/22 07:00 Oxygen Flow Rate (L/min) 2 Oxygen Delivery Method [2] Bi-pap Oxygen Delivery Method [1 ( Bi-pap Initial Baseline)] Oxygen Delivery Method Bi-pap Weight: 94.12 kg Body Mass Index (BMI) 32.3 Intake & Output: Intake and Output for Last 24 Hours 03/06/22 03/07/22 03/08/22 23:59 23:59 23:59 Intake Total 574.5 / 574.5 817.73 / 817.73 Output Total 9200 / 9250 200 / 200 Balance 574.5 / 299.5 -8382.27 / -8432.27 -200 / -200 Lab / Micro Data Attestation: I reviewed the patient's lab results. Result Diagrams: 03/08/22 03:20 03/08/22 03:20 Labs: Laboratory Results - last 24 hr 03/07/22 08:00: APTT > 200.0 H* 03/07/22 12:10: POC Glucose 99 03/07/22 12:32: Fluid Glucose 137 H, Fluid Total Protein 1.0, Fluid LDH 62 03/07/22 12:32: Fluid Source OTHER, Fluid Color YELLOW, Fluid Appearance CLEAR, Fluid WBC 0.053, Fluid RBC 101, Fluid Tot Cell Count 0.075, Fld Polynuclear WBCs # 0.005, Fld Polynuclear WBCs % 9.4, Fluid Mononuclear WBCs 0.048, Fld Mononuclear WBCs % 90.6, Fluid Neutrophils 5, Fluid Lymphocytes 27, Fluid Monocy anita 68, Fl Pathologist Comment May follow, Fluid Comment 2 Not Reportable 03/07/22 17:30: Iron 26 L, TIBC 136 L, Iron Saturation 19.1, Ferritin 160 03/07/22 17:30: Ammonia 43.0 H 03/07/22 17:30: POC Glucose 98 03/07/22 21:32: POC Glucose 147 H 03/08/22 03:20: WBC 3.5 L, RBC 2.74 L, Hgb 9.0 L, Hct 29.9 L, MCV 109.1 H, MCH 32.8 H, MCHC 30.1 L D, RDW Std Deviation 62.9 H, RDW Coeff of Jean Claude 15.9 H, Plt Count 86 L, MPV 9.2, Immature Gran % (Auto) 0.600, Neut % (Auto) 63.9, Lymph % (Auto) 21.8, [place] % (Auto) 12.0 H, Eos % (Auto) 1.4, Baso % (Auto) 0.3, Absolute Neuts (auto) 2.2, Absolute Lymphs (auto) 0.76 L, Nucleated RBC % 0, Differential Comment SCANNED, Platelet Estimate SLT 03/08/22 03:20: Sodium 143, Potassium 4.2, Chloride 103, Carbon Dioxide 36.0 H, Anion Gap 4 L, BUN 56 H, Creatinine 2.38 H, Estim Creat Clear Calc 26.41, Est GFR (MDRD) Af Amer 34 L, Est GFR (MDRD) Non-Af 28 L, BUN/Creatinine Ratio 23.5 H , Glucose 114 H, Calcium 7.5 L, Total Bilirubin 1.30 H, AST 36, ALT < 6 L, Alkaline Phosphatase 69, Total Protein 5.5 L, Albumin 2.9 L, Globulin 2.6, Albumin/Globulin Ratio 1.1 03/08/22 03:20: Ammonia 56.0 H 03/08/22 05:20: POC Glucose 113 H Radiography Diagnostic Testing: Radiology Impression Echocardiogram 03/06/22 21:47 Interpretation Summary The study was technically difficult. Contrast injection was performed. Based upon the 2D echocardiographic and contrast enhanced images obtained there appears to be grossly normal left ventricular size, wall motion, and systolic function. The estimated ejection fraction is 65 %. Based upon the 2D echocardiographic and contrast enhanced images obtained there appears to be right ventricular dilatation and global right ventricular systolic dysfunction. Trivial mitral valve insufficiency. Trivial tricuspid valve insufficiency. Right ventricular systolic pressure estimated to be 35 mmHg. No evidence for diastolic dysfunction. Comment: Echo lucency potentially compatible with ascites Ordering Physician: Ryan Tapia Referring Physician: MD Ken Edis Performed By: Kizzy Benoit RCS Paracentesis Ultrasound 03/07/22 05:32 IMPRESSION: Ultrasound guided paracentesis. Electronically Signed: Manuelito Mathews MD at 13:37 EST , Chest X-Ray 03/07/22 14:05 IMPRESSION: Interval decrease in the pleural parenchymal changes at the right lung base. The left lung is clear. Electronically Signed: Manuelito Mathews MD at 14:19 EST , Chest Ultrasound 03/07/22 21:47 IMPRESSION: Not enough fluid for safe thoracentesis. Electronically Signed: Manuelito Mathews MD at 13:35 EST , Physical Exam Const Constitutional Narrative: Good BiPAP synchrony. Appears older than stated age. Patient is following some commands today. HEENT normocephalic and head/scalp atraumatic HEENT Narrative: Dry mucous membranes. No significant mask leak noted. Eyes EOMs intact bilaterally and conjunctivae normal Neck full ROM Lymph Lymphatic: no lymphadenopathy noted Chest Chest: abnormal inspection of the chest increased A-P diameter Resp normal respiratory effort Effort and Inspection: Negative for actively coughing or uses accessory muscles Auscultation: diminished lung sounds; Negative for rales, rhonchi or wheezes Percussion: Negative for dullness Cardio regular rate, regular rhythm, S1 normal heart sound, S2 normal heart sound, no murmurs, no rub and no gallops Cardio Narrative: Significant ectopy noted on telemetry. GI normal to inspection, nondistended, normoactive bowel sounds, soft to palpation and non-tender Extremity General Extremity: edema Neuro moves all extremities and no focal motor deficits Psych Mood & Affect: flat affect Charges/Coding Visit Charges Inpatient E&M: 07955 Subs Hosp L3
--- NOTE | 2022-03-08 08:26 | PN.CARD_ITS ---
Subjective Subjective The patient is awake. He does respond to verbal stimuli. He denies any ongoing chest discomfort. He states has been chronically short of breath. He does state that his abdomen does not feel as distended since the paracentesis procedure yesterday. He states he has been followed through the [facility]. He does not recall any cardiovascular studies being performed at their institution. Objective Data Vital Signs: Vital Signs Temp Pulse Resp BP Pulse Ox O2 Del Method O2 Flow Rate 97.2 F L 86 23 H 102/43 L 97 Bi-pap 2 03/08/22 08:00 03/08/22 08:00 03/08/22 08:00 03/08/22 08:00 03/08/22 08:00 03/08/22 08:00 03/08/22 02:00 FiO2 30 03/08/22 08:00 Oxygen Flow Rate (L/min) 2 Oxygen Delivery Method [2] Bi-pap Oxygen Delivery Method [1 ( Bi-pap Initial Baseline)] Oxygen Delivery Method Bi-pap Weight: 207 lb 8 oz Body Mass Index (BMI) 32.3 Intake & Output: Intake and Output for Last 24 Hours 03/06/22 03/07/22 03/08/22 23:59 23:59 23:59 Intake Total 574.5 / 574.5 817.73 / 817.73 Output Total 9200 / 9250 200 / 200 Balance 574.5 / 299.5 -8382.27 / -8432.27 -200 / -200 Lab / Micro Data Result Diagrams: 03/08/22 03:20 03/08/22 03:20 Labs: Laboratory Results - last 24 hr 03/07/22 08:00: APTT > 200.0 H* 03/07/22 12:10: POC Glucose 99 03/07/22 12:32: Fluid Glucose 137 H, Fluid Total Protein 1.0, Fluid LDH 62 03/07/22 12:32: Fluid Source OTHER, Fluid Color YELLOW, Fluid Appearance CLEAR, Fluid WBC 0.053, Fluid RBC 101, Fluid Tot Cell Count 0.075, Fld Polynuclear WBCs # 0.005, Fld Polynuclear WBCs % 9.4, Fluid Mononuclear WBCs 0.048, Fld Mononuclear WBCs % 90.6, Fluid Neutrophils 5, Fluid Lymphocytes 27, Fluid Monocytes 68, Fl Pathologist Comment May follow, Fluid Comment 2 Not Reportable 03/07/22 17:30: Iron 26 L, TIBC 136 L, Iron Saturation 19.1, Ferritin 160 03/07/22 17:30: Ammonia 43.0 H 03/07/22 17:30: POC Glucose 98 03/07/22 21:32: POC Glucose 147 H 03/08/22 03:20: WBC 3.5 L, RBC 2.74 L, Hgb 9.0 L, Hct 29.9 L, MCV 109.1 H, MCH 32.8 H, MCHC 30.1 L D, RDW Std Deviation 62.9 H, RDW Coeff of Jean Claude 15.9 H, Plt Count 86 L, MPV 9.2, Immature Gran % (Auto) 0.600, Neut % (Auto) 63.9, Lymph % (Auto) 21.8, [place] % (Auto) 12.0 H, Eos % (Auto) 1.4, Baso % (Auto) 0.3, Absolute Neuts (auto) 2.2, Absolute Lymphs (auto) 0.76 L, Nucleated RBC % 0, Differential Comment SCANNED, Platelet Estimate SLT 03/08/22 03:20: Sodium 143, Potassium 4.2, Chloride 103, Carbon Dioxide 36.0 H, Anion Gap 4 L, BUN 56 H, Creatinine 2.38 H, Estim Creat Clear Calc 26.41, Est GFR (MDRD) Af Amer 34 L, Est GFR (MDRD) Non-Af 28 L, BUN/Creatinine Ratio 23.5 H , Glucose 114 H, Calcium 7.5 L, Total Bilirubin 1.30 H, AST 36, ALT < 6 L, Alkaline Phosphatase 69, Total Protein 5.5 L, Albumin 2.9 L, Globulin 2.6, Albumin/Globulin Ratio 1.1 03/08/22 03:20: Ammonia 56.0 H 03/08/22 05:20: POC Glucose 113 H Cardiology Labs/Tests 03/07/22 08:00: APTT > 200.0 H* 03/07/22 17:30: Iron 26 L, TIBC 136 L, Iron Saturation 19.1, Ferritin 160 03/08/22 03:20: WBC 3.5 L, RBC 2.74 L, Hgb 9.0 L, Hct 29.9 L, MCV 109.1 H, MCH 32.8 H, MCHC 30.1 L D, Plt Count 86 L, MPV 9.2, Immature Gran % (Auto) 0.600, Neut % (Auto) 63.9, Lymph % (Auto) 21.8, Edwards % (Auto) 12.0 H, Eos % (Auto) 1.4, Baso % (Auto) 0.3, Absolute Neuts (auto) 2.2, Nucleated RBC % 0 03/08/22 03:20: Sodium 143, Potassium 4.2, Chloride 103, Carbon Dioxide 36.0 H, Anion Gap 4 L, BUN 56 H, Creatinine 2.38 H, Est GFR (MDRD) Af Amer 34 L, Est GFR (MDRD) Non-Af 28 L, BUN/Creatinine Ratio 23.5 H, Glucose 114 H, Calcium 7.5 L, Total Bilirubin 1.30 H Rhythm: Sinus rhythm; ectopic atrial rhythm ECHO: See below Radiography Diagnostic Testing: Radiology Impression Echocardiogram 03/06/22 21:47 Interpretation Summary The study was technically difficult. Contrast injection was performed. Based upon the 2D echocardiographic and contrast enhanced images obtained there appears to be grossly normal left ventricular size, wall motion, and systolic function. The estimated ejection fraction is 65 %. Based upon the 2D echocardiographic and contrast enhanced images obtained there appears to be right ventricular dilatation and global right ventricular systolic dysfunction. Trivial mitral valve insufficiency. Trivial tricuspid valve insufficiency. Right ventricular systolic pressure estimated to be 35 mmHg. No evidence for diastolic dysfunction. Comment: Echo lucency potentially compatible with ascites Ordering Physician: Ryan Tapia Referring Physician: MD Ken Edis Performed By: Kizzy Benoit RCS Paracentesis Ultrasound 03/07/22 05:32 IMPRESSION: Ultrasound guided paracentesis. Electronically Signed: Manuelito Mathews MD at 13:37 EST , Chest X-Ray 03/07/22 14:05 IMPRESSION: Interval decrease in the pleural parenchymal changes at the right lung base. The left lung is clear. Electronically Signed: Manuelito Mathews MD at 14:19 EST Reading Location ID and State: [facility] / [place] , Service support , Chest Ultrasound 03/07/22 21:47 IMPRESSION: Not enough fluid for safe thoracentesis. Electronically Signed: Manuelito Mathews MD at 13:35 EST , Physical Exam Const Orientation / Consciousness: awake HEENT normocephalic, head/scalp atraumatic and hearing grossly normal bilaterally Eyes PERRL, EOMs intact bilaterally, conjunctivae normal and no scleral icterus Neck full ROM, supple and no JVD Resp Auscultation: breath sounds absent right (Base) and diminished lung sounds right lower Cardio Rhythm: abnormal rhythm regularly irregular Heart Sounds: S1 normal and S2 normal GI normal to inspection, nondistended, normoactive bowel sounds, soft to palpation and non-tender Extremity General Extremity: edema bilateral lower extremity Details: moderate Psych Memory / Cognition: cognition grossly intact Assessment & Plan Assessment/Plan (1) Elevated troponin: PLAN: The patient is found to have elevated high-sensitivity troponin I levels. At the present time the concern is this is a type II event brought out by his underlying pulmonary disease process and profound hypoxemia. His troponin I levels have decreased. He has had multiple ECGs with no acute ECG changes. He has undergone evaluation with a transthoracic echocardiogram. The results have been noted and reviewed. It may be reasonable, when he is able from his multiple comorbidities to be placed on aspirin 81 mg p.o. daily unless otherwise contraindicated. Based upon his cardiac rhythm demonstrating variable sinus rhythm and ectopic atrial rhythm and variable rates including episodes of bradycardia, his lower blood pressures, and his underlying pulmonary disease process, it may be s omewhat challenging to place him on medical management such as beta-blockers. Other agents such as afterload reducing agents in the way of SNOW inhibitor's or ARB's, etc., may also be somewhat challenging based on concerns of lower blood pressures and his renal insufficiency. He could continue risk factor modification/medical therapy with statins unless otherwise contraindicated from a gastroenterology standpoint. If at some point in time he appears to be a candidate for additional cardiovascu lar studies then it may not be unreasonable to consider a noninvasive study such as a pharmacologic stress nuclear imaging study to evaluate for any obvious evidence of myocardial ischemia that would warrant additional evaluation and care in the cardiac catheterization laboratory. However, a cardiac catheterization in this patient could be somewhat challenging as well based upon his multiple comorbidities including concerns of his renal insufficiency and history of thrombocytopenia and potential limits on medications. Thus he may be delegated to conservative medical management. (2) Heart failure: PLAN: The patient presents with findings concerning for underlying CHF. Based upon the patient's transthoracic echocardiogram it appears his overall LV systolic function is preserved. There is concern that his right ventricle is dilated and globally dysfunctional. This may represent his underlying pulmonary disease process and cor pulmonale and right heart failure leading to his examination findings/objective findings, etc. In that case the patient would need to continue medical management and support of his underlying pulmonary disease process and volume process with O2 support and diuretic support. (3) Pleural effusion: PLAN: He does have a right-sided pleural effusion. It appears based upon his follow-up chest x-ray that this may be somewhat less prominent than his original chest x-ray. At the present time this does need to be followed. Hopefully in the future he can have a upright PA and lateral chest x-ray to further evaluate his pleural effusion status and whether or not he needs anything above and beyond diuretic t herapy such as a thoracentesis. (4) Ascites: PLAN: He does have ascites. He underwent an ultrasound-guided paracentesis yesterday. According to the report 685 0 L of tiffany-colored fluid was removed with a sample sent to pathology for further evaluation. He will continue GI evaluation. (5) Cirrhosis: PLAN: His CT scan reports cirrhosis. There is a possibility that if this is not cardiogenic in etiology and perhaps cirrhosis is the etiology for his volume overload, etc. He will continue evaluation care per GI. (6) Colitis: PLAN: Based upon his CT scan appears there is concern of colitis. Again this will have to be taken into consideration with his overall evaluation and care and need for additional input from other specialties. (7) Acute and chronic respiratory failure with hypercapnia: PLAN: He is being evaluated in the ICU by pulmonology and critical care medicine. He continues with BiPAP therapy at this time. (8) HLD (hyperlipidemia): PLAN: His lipid labs can be evaluated. He can be considered for medical therapy as deemed appropriate. (9) Hypertension: PLAN: His blood pressures have been somewhat low. This may place limits on medications that he can receive. (10) Acute renal insufficiency: PLAN: He does have an element of renal insufficiency. This may be related to concerns of heart failure but also may be related to noncardiac etiologies. At the moment he is being monitored. He is continuing medical management which does include his IV diuretic therapy at this time. (11) Thrombocytopenia: PLAN: It appears he also has a history of thrombocytopenia. Its unclear as to whether or not he has an underlying primary hematologic issue versus this being related to his noncardiac/other comorbidities. This does need to be taken into consideration with respect to his ability to be on antiplatelet therapy and anticoagulant therapy and undergo invasive procedures. (12) Parkinsons disease: PLAN: He has a history of Parkinson's disease. He has been on medical therapy for this. Addt'l Comments Overall, from a cardiovascular standpoint, the concern is that the patient may very well have from his underlying pulmonary disease process an element of cor pulmonale and right heart failure leading to his symptoms and objective findings with respect to his volume overload superimposed upon multiple other comorbidities. From a cardiac standpoint this time he will continue conservative medical management/support. He does not appear to be an ideal candidate for invasive evaluation at this ti or. This note was generated using a voice recognition system and there may be incorrect words, spelling or punctuation that were not noted when reviewing the office note prior to saving. Procedure Criteria Type of Procedure Procedure Type: Elective Elective Risks - COVID COVID Risk Discussion: The surgeon/proceduralist and patient have discussed in detail the risk of exposure to and/or potential harm posed by the COVID-19 virus with having a surgery/procedure at this time versus the risk of delaying the surgery/procedure. It is not possible to know either the risk of delaying the surgery or procedure or chance of getting an infection with perfect accuracy, but a joint decision was made between the patient and the surgeon/proceduralist to proceed at this time with the scheduled surgery/procedure as indicated on the consent form.
[2022-03-08 09:33] LABS: Cholesterol 90 mg/dL (200); High Density Lipoprotein 21 mg/dL; Triglycerides 86 mg/dL; Very Low Density Lipoprotein 17 mg/dL (5-40)
[2022-03-08] MEDS: 0.9% Saline Lock 10 ML Syringe IV (09:50)
--- NOTE | 2022-03-08 10:07 | PCM.PN.HOSP ---
Subjective Subjective Follow-up for acute combined respiratory failure/pleural effusion/non-STEMI: Patient was seen and examined. X3. He is on 2 L of oxygen. He had paracentesis with almost 7 L of fluid removed; received IV albumin. There was no much fluid in the chest for thoracocentesis. Plan for EGD by GI today. Objective Data Objective Data Vital Signs: Vital Signs Temp Pulse Resp BP Pulse Ox O2 Del Method O2 Flow Rate 97.2 F L 89 20 H 107/44 L 97 Nasal Cannula 2 03/08/22 09:50 03/08/22 09:50 03/08/22 09:50 03/08/22 09:50 03/08/22 09:50 03/08/22 09:50 03/08/22 09:50 FiO2 30 03/08/22 08:00 Oxygen Flow Rate (L/min) 2 Oxygen Delivery Method [2] Bi-pap Oxygen Delivery Method [1 ( Bi-pap Initial Baseline)] Oxygen Delivery Method Nasal Cannula Weight: 94.12 kg Body Mass Index (BMI) 29.7 Intake & Output: Intake and Output for Last 24 Hours 03/06/22 03/07/22 03/08/22 23:59 23:59 23:59 Intake Total 574.5 / 574.5 817.73 / 817.73 Output Total 9200 / 9250 200 / 200 Balance 574.5 / 299.5 -8382.27 / -8432.27 -200 / -200 Lab / Micro Data Result Diagrams: 03/08/22 03:20 03/08/22 03:20 Labs: Laboratory Results - last 24 hr 03/07/22 12:10: POC Glucose 99 03/07/22 12:32: Fluid Glucose 137 H, Fluid Total Protein 1.0, Fluid LDH 62 03/07/22 12:32: Fluid Source OTHER, Fluid Color YELLOW, Fluid Appearance CLEAR, Fluid WBC 0.053, Fluid RBC 101, Fluid Tot Cell Count 0.075, Fld Polynuclear WBCs # 0.005, Fld Polynuclear WBCs % 9.4, Fluid Mononuclear WBCs 0.048, Fld Mononuclear WBCs % 90.6, Fluid Neutrophils 5, Fluid Lymphocytes 27, Fluid Monocytes 68, Fl Pathologist Comment May follow, Fluid Comment 2 Not Reportable 03/07/22 17:30: Iron 26 L, TIBC 136 L, Iron Saturation 19.1, Ferritin 160 03/07/22 17:30: Ammonia 43.0 H 03/07/22 17:30: POC Glucose 98 03/07/22 21:32: POC Glucose 147 H 03/08/22 03:20: WBC 3.5 L, RBC 2.74 L, Hgb 9.0 L, Hct 29.9 L, MCV 109.1 H, MCH 32.8 H, MCHC 30.1 L D, RDW Std Deviation 62.9 H, RDW Coeff of Jean Claude 15.9 H, Plt Count 86 L, MPV 9.2, Immature Gran % (Auto) 0.600, Neut % (Auto) 63.9, Lymph % (Auto) 21.8, [place] % (Auto) 12.0 H, Eos % (Auto) 1.4, Baso % (Auto) 0.3, Absolute Neuts (auto) 2.2, Absolute Lymphs (auto) 0.76 L, Nucleated RBC % 0, Differential Comment SCANNED, Platelet Estimate SLT 03/08/22 03:20: Sodium 143, Potassium 4.2, Chloride 103, Carbon Dioxide 36.0 H, Anion Gap 4 L, BUN 56 H, Creatinine 2.38 H, Estim Creat Clear Calc 26.41, Est GFR (MDRD) Af Amer 34 L, Est GFR (MDRD) Non-Af 28 L, BUN/Creatinine Ratio 23.5 H, Glucose 114 H, Calcium 7.5 L, Total Bilirubin 1.30 H, AST 36, ALT < 6 L, Alkaline Phosphatase 69, Total Protein 5.5 L, Albumin 2.9 L, Globulin 2.6, Albumin/Globulin Ratio 1.1 03/08/22 03:20: Ammonia 56.0 H 03/08/22 03:20: Triglycerides 86, Cholesterol 90, LDL Cholesterol 52, VLDL Cholesterol 17, HDL Cholesterol 21 L 03/08/22 05:20: POC Glucose 113 H Radiography Diagnostic Testing: Radiology Impression Echocardiogram 03/06/22 21:47 Interpretation Summary The study was technically difficult. Contrast injection was performed. Based upon the 2D echocardiographic and contrast enhanced images obtained there appears to be grossly normal left ventricular size, wall motion, and systolic function. The estimated ejection fraction is 65 %. Based upon the 2D echocardiographic and contrast enhanced images obtained there appears to be right ventricular dilatation and global right ventricular systolic dysfunction. Trivial mitral valve insufficiency. Trivial tricuspid valve insufficiency. Right ventricular systolic pressure estimated to be 35 mmHg. No evidence for diastolic dysfunction. Comment: Echo lucency potentially compatible with ascites Ordering Physician: Ryan Tapia Referring Physician: MD Ken Edis Performed By: Kizzy Benoit RCS Paracentesis Ultrasound 03/07/22 05:32 IMPRESSION: Ultrasound guided paracentesis. Electronically Signed: Manuelito Mathews MD at 13:37 EST , Chest X-Ray 03/07/22 14:05 IMPRESSION: Interval decrease in the pleural parenchymal changes at the right lung base. The left lung is clear. Electronically Signed: Manuelito Mathews MD at 14:19 EST , Chest Ultrasound 03/07/22 21:47 IMPRESSION: Not enough fluid for safe thoracentesis. Electronically Signed: Manuelito Mathews MD at 13:35 EST , Physical Exam Narrative Physical exam: General: Alert, Oriented, Cooperative, on 2 L of oxygen, appears slightly lethargic HEENT: Atraumatic Oral: Moist Mucosa Neck: Supple Lungs: Diminished to auscultation Cardiovascular: HS I+II, regular, no murmurs Abdomen: Abdomen is distended, bowel Sounds Present, Soft, Non Tender, ascites+ Extremities: Bilateral leg edema+1 Skin: No rashes, No breakdown Neurological: Grossly intact Psych/Mental Status: Appropriate Assessment & Plan Assessment/Plan (1) Acute and chronic respiratory failure with hypercapnia: PLAN: Plan 1. Acute combined respiratory failure secondary to acute fluid overload/right pleural effusion/acute CHF exacerbation, improved Status currently on 2 L of oxygen [employer] following, continue to wean off oxygen 2. Acute exacerbation of acute on chronic CHF, EF 65%, improving Continue on IV lasix, strict I & Os, daily weight, fluid restriction, SNOW-wraps to legs 3. Acute non-STEMI, admitting EKG shows some lateral T wave inversions 2D echo shows grossly normal LV function, EF 65% Cardiology following, continue with heparin drip 4. Acute decompensated liver cirrhosis with ascites/pleural effusion with hepatic encephalopathy Status post almost 7 L paracentesis. No fluid for thoracocentesis Ammonia level is 56 Continue on lactulose and rifaximin Repeat LFTs and ammonia levels in a.m. Patient is going for EGD today 4. Abnormal CT abdomen pelvis, right colitis versus mass, continue on IV Unasyn 5. Type 2 DM, blood sugars are controlled, Continue to hold Jardiance Continue on insulin sliding scale with blood glucose checks every 6h 6. Hypertension, fairly controlled, continue to hold lisinopril 7. PRUDENCE on CKD stage III, likely prerenal, creatinine remains at 2.38 Previous level was 1.09, will trend 8.Acute metabolic/hepatic encephalopathy, also possibly secondary to hypercapnia Ammonia level is 56, will continue to monitor. 9. DVT prophylaxis?SCDs Charges/Coding Visit Charges Inpatient E&M: 65260 Subs Hosp L2
[2022-03-08] MEDS: Ipratropium/Albuterol Sulfate 3 ML AMPUL.NEB INHALATION (11:28)
--- NOTE | 2022-03-08 12:00 | EGD_PTH ---
PATIENT: RICHARD PARRY LOC: [facility] U#:[id number] AGE/SX: 76/M ROOM: [facility] RE03/06/[address]: Dr. Rohith Vann MD : 1945 BED: 1 DIS: 03/13/2022 SPEC #: [id number] RECD: 03/08/22 12:57 STATUS: WOODY RE #: [id number] DONNIE: 03/08/22 12:[address]: Rohith Vann DEPT: SURGICAL PATHOLOGY RECD BY: April Fermin ENTERED: 03/11/22 11:13 SP TYPE: EGD BIOPSY OT DR: MD Dr. Kedar Chaidez MD Dr. Joseph Agyepong, MD Dr. Mark Elderbrock, MD Dr. Nagapradee Nagajothi, MD Dr. Natthavat Tanphaichitr, MD Dr. Rahsaan Friend, DO Tissues: Duodenum, NOS Procedures: Surgery Specimen Level IV HEADER OPERATION: EGD with biopsy and bipolar electrohemostasis (MAC) PRE-OP DIAGNOSIS: Acute and chronic respiratory failure with hypercapnia TISSUE SUBMITTED: Duodenal ulcer MICROSCOPIC DIAGNOSIS Duodenal ulcer, biopsy: Fragments of duodenal mucosa with ulceration, acute inflammation and fibrinous exudation. CAROLYN:liset 03/12/2022 MICROSCOPIC DESCRIPTION Slides are reviewed. GROSS DESCRIPTION Received in fixative is one container labeled with the patient's name and designated duodenal ulcer. The specimen consists of two irregular fragments of light nunez soft tissue that in aggregate measure 0.6 x 0.3 x 0.1 cm. The specimen is totally submitted in one cassette. / CAROLYN:liset 03/11/2022 TC:2 CPT: 39891
--- NOTE | 2022-03-08 12:14 | OP.CCLET_ITS ---
03/08/2022 Edis Rogers [address] [place] [address] Re : Upper GI endoscopy procedure for Felix Vargas Dear Dr. Rogers This procedure was performed on Tuesday, March 08, 2022. My impressions and recommendations are as follows: Impressions : - Benign-appearing esophageal stenosis. Dilated. - Non-bleeding erosive gastropathy. - No gross lesions in the stomach. - Multiple non-bleeding duodenal ulcers with pigmented material. Biopsied. - Multiple oozing jejunal ulcers with a visible vessel Injected. Treated with a heater probe. Recommendations : - Return patient to [facility] for ongoing care. - No aspirin, ibuprofen, naproxen, or other non-steroidal anti-inflammatory drugs for 8 weeks. - Use Protonix (pantoprazole) 40 mg PO BID for 8 weeks. - Use sucralfate tablets 1 gram PO BID for 4 weeks. My findings are described in the full procedure note, which is enclosed. If I can be of further assistance, please feel free to contact me at . Sincerely, Waylon Hdez, 03/08/2022 12:14:08 PM This report has been signed electronically.
--- NOTE | 2022-03-08 12:14 | OP.EGD_ITS ---
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 Refer to note in patient chart for documentation of history and physical. Patient has symptoms of acute epigastric abdominal pain. Complications: No immediate complications. Procedure: Pre-Anesthesia Assessment: - Prior to the procedure, a History and Physical was performed, and patient medications and allergies were reviewed. The patient is competent. The risks and benefits of the procedure and the sedation options and risks were discussed with the patient. All questions were answered and informed consent was obtained. Patient identification and proposed procedure were verified in the pre-procedure area. Mental Status Examination: alert and oriented. Airway Examination: normal oropharyngeal airway and neck mobility. Respiratory Examination: clear to auscultation. CV Examination: normal. Prophylactic Antibiotics: The patient does not require prophylactic antibiotics. Prior Anticoagulants: The patient has taken no previous anticoagulant or antiplatelet agents. ASA Grade Assessment: III - A patient with severe systemic disease. After reviewing the risks and benefits, the patient was deemed in satisfactory condition to undergo the procedure. The anesthesia plan was to use monitored anesthesia care (MAC). Immediately prior to administration of medications, the patient was re-assessed for adequacy to receive sedatives. The heart rate, respiratory rate, oxygen saturations, blood pressure, adequacy of pulmonary ventilation, and response to care were monitored throughout the procedure. The physical status of the patient was re-assessed after the procedure. After obtaining informed consent, the endoscope was passed under direct vision. Throughout the procedure, the patient's blood pressure, pulse, and oxygen saturations were monitored continuously. The gastroscope was introduced through the mouth, and advanced to the second part of duodenum. The upper GI endoscopy was accomplished without difficulty. The patient tolerated the procedure well. Scope In: 11:52:06 AM Scope Out: 12:00:19 PM Total Procedure Duration Time 0 hours 8 minutes 13 seconds Findings: One benign-appearing, intrinsic stenosis was found 37 to 39 cm from the incisors. This stenosis was moderately severe (circumferential scarring or stenosis; an endoscope may pass) and measured 2 mm (inner diameter). The stenosis was traversed after dilation. A guidewire was placed and the scope was withdrawn. Dilation was performed with a Savary dilator with no resistance at 39 Fr. The dilation site was examined and showed moderate improvement in luminal narrowing. Estimated blood loss was minimal. A few localized, 2 mm non-bleeding erosions were found in the gastric body. There were no stigmata of recent bleeding. No gross lesions were noted in the entire examined stomach. The cardia and gastric fundus were normal on retroflexion. Many non-bleeding cratered duodenal ulcers with pigmented material were found in the duodenal bulb, in the first portion of the duodenum, in the second portion of the duodenum, in the third portion of the duodenum and in the fourth portion of the duodenum. The largest lesion was 6 mm in largest dimension. Biopsies were taken with a cold forceps for histology. Verification of patient identification for the specimen was done. Estimated blood loss was minimal. Three oozing cratered ulcers with a visible vessel were found in the jejunum. The largest lesion was 3 mm in largest dimension. Area was successfully injected with 5 mL of a 1:10,000 solution of epinephrine for hemostasis. Estimated blood loss was minimal. Coagulation for hemostasis using heater probe was successful. Estimated blood loss was minimal. Impression: - Benign-appearing esophageal stenosis. Dilated. - Non-bleeding erosive gastropathy. - No gross lesions in the stomach. - Multiple non-bleeding duodenal ulcers with pigmented material. Biopsied. - Multiple oozing jejunal ulcers with a visible vessel Injected. Treated with a heater probe. Recommendation: - Return patient to [facility] for [facility] care. - No aspirin, ibuprofen, naproxen, or other non-steroidal anti-inflammatory drugs for 8 weeks. - Use Protonix (pantoprazole) 40 mg PO BID for 8 weeks. - Use sucralfate tablets 1 gram PO BID for 4 weeks. Procedure Code(s): --- Professional --- 00417, 59, Esophagogastroduodenoscopy, flexible, transoral; with control of bleeding, any method 23313, Esophagogastroduodenoscopy, flexible, transoral; with insertion of guide wire followed by passage of dilator(s) through esophagus over guide wire 40311, 59,51, Esophagogastroduodenoscopy, flexible, transoral; with biopsy, single or multiple CPT copyright 2017 [employer]. All rights reserved. The codes documented in this report are preliminary and upon meteorology faculty member review may be revised to meet current compliance requirements. Waylon Hdez DO 03/08/2022 12:14:08 PM This report has been signed electronically. Number of Addenda: 0 Note Initiated On: 03/08/2022 11:43 AM
[2022-03-08 13:51] LABS: Bedside Glucose 111 mg/dL (74-106)
[2022-03-08] MEDS: Midodrine HCl 5 MG Tablet 10 MG PO ×2 (14:52→19:57)
[2022-03-08] MEDS: Lactulose 20 GM/30 ML UDC PO ×2 (14:52→19:56)
[2022-03-08] MEDS: rifAXIMin 550 MG Tablet PO ×2 (14:55→19:57)
[2022-03-08] MEDS: Furosemide 40 MG/4 ML Vial IV ×2 (14:58→19:56)
[2022-03-08 15:33] LABS: Pathologist Comment/Body Fluid Reviewed
[2022-03-08 18:10] LABS: Bedside Glucose 124 mg/dL (74-106)
[2022-03-08 18:35] LABS: Base Excess 8 mmol/L (-2 to +2); Bicarbonate 37.2 mmol/L (22-26); Blood Gas Specimen Type ART; FI02 30; O2 Delivery Device BiPAP; PEEP 8; PO2 78 mmHG (75-100); RR 14; SITE R Radial; SO2 88 % (95-99); Total Carbon Dioxide 41 mmol/L; Vt 500; pCO2 114.3 mmHg (35-45); pH 7.12 (7.35-7.45)
[2022-03-08] MEDS: Tamsulosin HCl 0.4 MG Capsule 0.8 MG PO (19:56)
[2022-03-08] MEDS: Pramipexole Di-HCl 1 MG Tablet PO (19:57)
--- NOTE | 2022-03-08 21:57 | CPS ---
Critical ABG results read back to Dr. Borja
[2022-03-08 23:25] LABS: Allen Test Negative; Base Excess 8 mmol/L (-2 to +2); Bicarbonate 34.8 mmol/L (22-26); Blood Gas Specimen Type ART; FI02 30; O2 Delivery Device BiPAP; PEEP 8; PO2 85 mmHG (75-100); RR 14; SITE L Radial; SO2 94 % (95-99); Total Carbon Dioxide 37 mmol/L; Vt 500; pCO2 79.9 mmHg (35-45); pH 7.25 (7.35-7.45)
[2022-03-09] VITALS (11 sets, daily range): BP systolic 98–124; BP diastolic 51–55; PULSE 85–100; RESP 14–22; TEMP 36.2–36.7; O2SAT 79–99
[2022-03-09] MEDS: Insulin Lispro 100 UNIT/ML INSULN.PEN SC (00:11)
[2022-03-09 01:06] LABS: Bedside Glucose 182 mg/dL (74-106)
[2022-03-09 03:45] LABS: Absolute Lymphocyte Count 0.49 X10^3/uL (0.83-4.51); Absolute Neutrophil Count 3.3 X10^3/uL (2.0-7.7); Hematocrit 31.2 % (40-54); Hemoglobin 9.5 g/dL (13.0-16.5); Lymphocyte # 0.49 X10^3/ul (0.83-4.51); Lymphocyte % 11.7 % (19-41); Mean Corp Hgb Conc 30.4 g/dL (32-36); Mean Corpuscular Hgb 33.2 pg (27.0-32.0); Mean Corpuscular Volume 109.1 fL (80-94); Mean Platelet Vol. 10.1 fl (6.2-12.0); Monocyte# 0.41 X10^3/uL; Monocyte% 9.8 % (0-10); NRBC Flagged by Analyzer 0 % (0-5); Neutrophil # 3.26 X10^3/uL (2.7-7.7); POSITIVE COUNT YES; POSITIVE DIFFERENTIAL YES; Platelet Count 75 K/mm3 (150-450); RBC Distribution Width CV 15.9 % (11.6-14.6); RBC Distribution Width SD 62.8 fl (35.1-43.9); Red Blood Count 2.86 M/mm3 (4.6-6.2); White Blood Count 4.2 K/mm3 (4.4-11.0)
[2022-03-09 04:07] LABS: Differential Indicated SCAN CRITERIA MET
[2022-03-09 04:18] LABS: ALB/GLOB Ratio 0.9 RATIO (0.9-2.4); AST(SGOT) 39 U/L (15-37); Alanine Aminotransfer ALT/SGPT 7 U/L (16-61); Albumin, Serum 2.7 g/dL (3.2-5.0); Alkaline Phosphatase 74 U/L (45-117); Anion Gap 6 (5-15); BUN 67 mg/dL (7-18); BUN/Creat Ratio 25.5 RATIO (10-20); Calcium,Total 7.9 mg/dL (8.5-10.1); Chloride 105 mmol/L (98-107); Creatinine, Serum 2.63 mg/dL (0.70-1.30); EST Glomerular Filtration Rate 25 mL/min (>60); Est Glom Filt Rate - Afr Amer 30 mL/min (>60); Glucose 121 mg/dL (74-106); Potassium 4.7 mmol/L (3.5-5.1); Protein, Total 5.7 g/dL (6.4-8.2); Sodium Level 145 mmol/L (136-145)
[2022-03-09 05:36] LABS: Anisocytosis 1+; Differential Comment SCANNED; Macrocytosis 1+; Platelet Estimate MOD DEC (ADEQ)
[2022-03-09] MEDS: Levothyroxine 125 MCG Tablet PO (05:49)
[2022-03-09 06:15] LABS: Bedside Glucose 119 mg/dL (74-106)
--- NOTE | 2022-03-09 07:31 | PN.CC_ITS ---
Assessment & Plan Assessment/Plan (1) Acute and chronic respiratory failure with hypercapnia: (2) Ascites: (3) Cirrhosis: (4) Diabetes mellitus: QUALIFIERS: Diabetes mellitus type: type 2 Diabetes mellitus complication detail: with polyneuropathy PLAN: Plan RECOMMENDATIONS: 1. Continue midodrine 2. Proceed with GI recommendations 3. Encourage incentive spirometer and out of bed as tolerated. Keep sats between 90 and 94% 4. Await cardiology recommendations 5. Continue lactulose and rifaximin 6. Likely no indication for steroid therapy 7. Okay to leave the intensive care unit IMPRESSIONS: 1. Acute on chronic hypercarbic respiratory failure secondary to massive ascites, in the setting of COPD/asthma overlap Patient with new right-sided atelectasis secondary to massive ascites. This has not been documented previously, but patient does have new significant ascites. Given colonic thickening, malignancy would be a concern. Cirrhosis would also be a concern. Patient still requiring 2 L nasal cannula to maintain saturations. Clinical suspicion for overnight complications related to anesthesia with EGD. Patient responded well to BiPAP rescue. 2. Elevated troponin/Acute on chronic diastolic CHF/suspected type II pulmonary hypertension Patient currently on a heparin drip. Echocardiogram from 2018 did show diastolic dysfunction with an EF of 60%. Patient did have elevated pulmonary artery pressures of 36 mmHg with evidence of right ventricular dysfunction. Cardiology has been consulted. Some concern patient has an element of elevated troponin secondary to global hypoxia with a type II NSTEMI. 3. Cirrhosis with possible colon mass and ascites Unclear if patient has a known diagnosis of cirrhosis. GI has been consulted and did not find some lesions in the EGD. Clinical suspicion is ascites is secondary to new onset cirrhosis. Await GI recommendations for colonic investigation. 4. Diabetes mellitus type 2/anxiety/Parkinson's features/hypertension/hyperlipidemia/obesity/advanced age Complicates care, management, recovery and prognosis. We will attempt to avoid steroids as this will worsen hyperglycemia and mentation. Okay to continue with parkinsonian medications from my perspective. Subjective Subjective Patient did okay overnight. Patient did have a period of unresponsiveness following EGD. ABG was obtained showing CO2 retention. Patient was placed on BiPAP and did well overnight. This morning, patient is much more interactive and able to answer questions appropriately. Patient is not reporting any abdominal pain. Objective Data Objective Data Vital Signs: Vital Signs Temp Pulse Resp BP Pulse Ox O2 Del Method O2 Flow Rate 36.2 C L 90 15 98/52 L 95 Nasal Cannula 2 03/09/22 06:00 03/09/22 06:00 03/09/22 06:00 03/09/22 06:00 03/09/22 06:00 03/09/22 06:00 03/09/22 06:00 FiO2 30 03/09/22 04:35 Oxygen Flow Rate (L/min) 2 Oxygen Delivery Method [2] Bi-pap Oxygen Delivery Method [1 ( Bi-pap Initial Baseline)] Oxygen Delivery Method Nasal Cannula Weight: 94.801 kg Body Mass Index (BMI) 29.7 Intake & Output: Intake and Output for Last 24 Hours 03/07/22 03/08/22 03/09/22 23:59 23:59 23:59 Intake Total 817.73 / 817.73 224 / 224 Output Total 9200 / 9250 475 / 545 170 / 170 Balance -8382.27 / -8432.27 -251 / -321 -170 / -170 Lab / Micro Data Attestation: I reviewed the patient's lab results. Result Diagrams: 03/09/22 03:35 03/09/22 03:35 Labs: Laboratory Results - last 24 hr 03/07/22 12:32: Fl Pathologist Comment Reviewed 03/07/22 12:32: Miscellaneous Cytology SEE PATHOLOGY REPORT 03/08/22 03:20: Triglycerides 86, Cholesterol 90, LDL Cholesterol 52, VLDL Shannan sterol 17, HDL Cholesterol 21 L 03/08/22 13:29: POC Glucose 111 H 03/08/22 17:48: POC Glucose 124 H 03/09/22 00:10: POC Glucose 182 H 03/09/22 03:35: WBC 4.2 L, RBC 2.86 L, Hgb 9.5 L, Hct 31.2 L, MCV 109.1 H, MCH 33.2 H, MCHC 30.4 L, RDW Std Deviation 62.8 H, RDW Coeff of [place] 15.9 H, Plt Count 75 L, MPV 10.1, Immature Gran % (Auto) 0.500, Neut % (Auto) 78.0 H, Lymph % (Auto) 11.7 L, Wheeler % (Auto) 9.8, Eos % (Auto) 0.0, Baso % (Auto) 0.0, Absolute Neuts (auto) 3.3, Absolute Lymphs (auto) 0.49 L, Nucleated RBC % 0, Differential Comment SCANNED, Diff Path Review May foll, Platelet Estimate MOD DEC, Anisocytosis 1+, Macrocytosis 1+ 03/09/22 03:35: Sodium 145, Potassium 4.7, Chloride 105, Carbon Dioxide 34.0 H, Anion Gap 6, BUN 67 H, Creatinine 2.63 H, Estim Creat Clear Calc 23.90, Est GFR (MDRD) Af Amer 30 L, Est GFR (MDRD) Non-Af 25 L, BUN/Creatinine Ratio 25.5 H, Glucose 121 H, Calcium 7.9 L, Total Bilirubin 1.30 H, AST 39 H, ALT 7 L, Alkaline Phosphatase 74, Total Protein 5.7 L, Albumin 2.7 L, Globulin 3.0, Albumin/Globulin Ratio 0.9 03/09/22 03:35: Ammonia 15.0 03/09/22 05:53: POC Glucose 119 H ABG Data ABG results: ABG 03/08/22 03/08/22 18:30 23:17 Specimen Type ART ART Sample Site R Radial L Radial pH 7.12 L* 7.25 L Bicarbonate Actual 37.2 H 34.8 H Total CO2 41 37 Base Excess 8 H 8 H O2 Saturation 88 L 94 L O2 % 30 30 ABG pCO2 114.3 H* 79.9 H* ABG pO2 78 85 Jonah Test N/A Negative Respiration Rate 14 14 O2 Delivery Device BiPAP BiPAP Tidal Volume 500 500 POC PEEP 8 8 Crit Call To/Read Back Yes Yes Blood Gas Notified Whom JACOB Singh Physical Exam Const Constitutional Narrative: No conversational dyspnea on 2 L/min. Appears older than stated age. Patient is following some commands today. HEENT normocephalic and head/scalp atraumatic HEENT Narrative: Dry mucous membranes. No significant mask leak noted. Eyes EOMs intact bilaterally and conjunctivae normal Neck full ROM Lymph Lymphatic: no lymphadenopathy noted Chest Chest: abnormal inspection of the chest increased A-P diameter Resp normal respiratory effort Effort and Inspection: Negative for actively coughing or uses accessory muscles Auscultation: diminished lung sounds; Negative for rales, rhonchi or wheezes Percussion: Negative for dullness Cardio regular rate, regular rhythm, S1 normal heart sound, S2 normal heart sound, no murmurs, no rub and no gallops Cardio Narrative: Significant ectopy noted on telemetry. GI normal to inspection, nondistended, normoactive bowel sounds, soft to palpation and non-tender Extremity General Extremity: edema Neuro moves all extremities and no focal motor deficits Psych cooperative Mood & Affect: flat affect Charges/Coding Visit Charges Inpatient E&M: 80371 Subs Hosp L3
[2022-03-09] MEDS: Carbidopa/Levodopa 25/100 Tablet PO ×3 (07:56→16:21)
[2022-03-09] MEDS: Midodrine HCl 5 MG Tablet 10 MG PO ×3 (07:56→16:22)
[2022-03-09 08:50] LABS: AFP, Tumor Marker < 1.8 ng/mL (0.0-8.4)
[2022-03-09] MEDS: Furosemide 40 MG/4 ML Vial IV (10:12)
[2022-03-09] MEDS: Lactulose 20 GM/30 ML UDC PO ×2 (10:12→21:02)
[2022-03-09] MEDS: rifAXIMin 550 MG Tablet PO ×2 (10:13→21:04)
[2022-03-09] MEDS: 0.9% Saline Lock 10 ML Syringe IV (10:15)
--- NOTE | 2022-03-09 10:44 | PN.HOSP_ITS ---
Subjective Subjective Follow-up for acute combined respiratory failure/pleural effusion/non-STEMI: Patient was seen and examined. Patient is more alert today. He is off oxygen. He had EGD done yesterday that showed esophageal stenosis that was dilated, nonbleeding erosive gastropathy, multiple nonbleeding duodenal ulcers with pigmented material that was biopsied. Multiple oozing duodenal ulcers with visible vessel that was treated with heater probe Objective Data Objective Data Vital Signs: Vital Signs Temp Pulse Resp BP Pulse Ox O2 Del Method O2 Flow Rate 97.8 F 100 19 H 124/52 H 79 Room Air 2 03/09/22 08:00 03/09/22 08:00 03/09/22 08:00 03/09/22 08:00 03/09/22 10:43 03/09/22 10:43 03/09/22 06:45 FiO2 30 03/09/22 04:35 Oxygen Flow Rate (L/min) 2 Oxygen Delivery Method [2] Bi-pap Oxygen Delivery Method [1 ( Bi-pap Initial Baseline)] Oxygen Delivery Method Room Air Weight: 94.801 kg Body Mass Index (BMI) 29.7 Intake & Output: Intake and Output for Last 24 Hours 03/07/22 03/08/22 03/09/22 23:59 23:59 23:59 Intake Total 817.73 / 817.73 224 / 224 Output Total 9200 / 9250 475 / 545 170 / 170 Balance -8382.27 / -8432.27 -251 / -321 -170 / -170 Lab / Micro Data Result Diagrams: 03/09/22 03:35 03/09/22 03:35 Labs: Laboratory Results - last 24 hr 03/06/22 18:45: Urine Color Jill, Urine Clarity Clear, Urine pH 5.0, Ur Specific [place] 1.025, Urine Protein 100 H, Urine Glucose (UA) Normal, Urine Ketones 5 H, Urine Occult Blood 10 H, Urine Nitrite Negative, Urine Bilirubin 3 H, Urine Urobilinogen 4 H, Ur Leukocyte Esterase 25 H, Urine RBC 0 SEEN, Urine WBC 0-5 SEEN, Ur Squamous Epith Cells 0 SEEN, Urine Bacteria RARE, Urine Mucus 0 SEEN 03/07/22 12:32: Fl Pathologist Comment Reviewed 03/07/22 12:32: Miscellaneous Cytology SEE PATHOLOGY REPORT 03/07/22 18:30: Tumor Marker AFP < 1.8 03/08/22 13:29: POC Glucose 111 H 03/08/22 17:48: POC Glucose 124 H 03/09/22 00:10: POC Glucose 182 H 03/09/22 03:35: WBC 4.2 L, RBC 2.86 L, Hgb 9.5 L, Hct 31.2 L, MCV 109.1 H, MCH 33.2 H, MCHC 30.4 L, RDW Std Deviation 62.8 H, RDW Coeff of Jean Claude 15.9 H, Plt Count 75 L, MPV 10.1, Immature Gran % (Auto) 0.500, Neut % (Auto) 78.0 H, Lymph % (Auto) 11.7 L, [place] % (Auto) 9.8, Eos % (Auto) 0.0, Baso % (Auto) 0.0, Absolute Neuts (auto) 3.3, Absolute Lymphs (auto) 0.49 L, Nucleated RBC % 0, Differential Comment SCANNED, Diff Path Review May foll, Platelet Estimate MOD DEC, Anisocytosis 1+, Macrocytosis 1+ 03/09/22 03:35: Sodium 145, Potassium 4.7, Chloride 105, Carbon Dioxide 34.0 H, Anion Gap 6, BUN 67 H, Creatinine 2.63 H, Estim Creat Clear Calc 23.90, Est GFR (MDRD) Af Amer 30 L, Est GFR (MDRD) Non-Af 25 L, BUN/Creatinine Ratio 25.5 H, Glucose 121 H, Calcium 7.9 L, Total Bilirubin 1.30 H, AST 39 H, ALT 7 L, Alkaline Phosphatase 74, Total Protein 5.7 L, Albumin 2.7 L, Globulin 3.0, Albumin/Globulin Ratio 0.9 03/09/22 03:35: Ammonia 15.0 03/09/22 05:53: POC Glucose 119 H Micro: Microbiology 03/06/22 18:45 Urine Catheter - Catheter Urine Culture - Preliminary Alpha Hemolytic Streptococcus 03/06/22 17:55 Blood Culture (Wb) - Anticubital Right Blood Culture - Preliminary No growth in 48 hours. 03/06/22 17:10 Blood Culture (Wb) - Anticubital Left Blood Culture - Prel iminary No growth in 48 hours. ABG Data ABG results: ABG 03/08/22 03/08/22 18:30 23:17 Specimen Type ART ART Sample Site R Radial L Radial pH 7.12 L* 7.25 L Bicarbonate Actual 37.2 H 34.8 H Total CO2 41 37 Base Excess 8 H 8 H O2 Saturation 88 L 94 L O2 % 30 30 ABG pCO2 114.3 H* 79.9 H* ABG pO2 78 85 Jonah Test N/A Negative Respiration Rate 14 14 O2 Delivery Device BiPAP BiPAP Tidal Volume 500 500 POC PEEP 8 8 Crit Call To/Read Back Yes Yes Blood Gas Notified Whom JACOB Singh Physical Exam Narrative Physical exam: General: Alert, Oriented, Cooperative, on 2 L of oxygen, appears slightly lethargic HEENT: Atraumatic Oral: Moist Mucosa Neck: Supple Lungs: Diminished to auscultation Cardiovascular: HS I+II, regular, no murmurs Abdomen: Abdomen is distended, bowel Sounds Present, Soft, Non Tender, ascites+ Extremities: Bilateral leg edema+1 Skin: No rashes, No breakdown Neurological: Grossly intact Psych/Mental Status: Appropriate Assessment & Plan Assessment/Plan (1) Acute and chronic respiratory failure with hypercapnia: PLAN: Plan 1. Acute combined respiratory failure secondary to acute fluid overload/right pleural effusion/acute CHF exacerbation, resolved Currently on room air 2. Acute exacerbation of acute on chronic CHF, EF 65%, improving Was switched from IV Lasix to oral Lasix, strict I & Os, daily weight, fluid restriction, SNOW-wraps to legs 3. Acute non-STEMI, admitting EKG shows some lateral T wave inversions 2D echo shows grossly normal LV function, EF 65% Cardiology following, medical management recommended, off heparin drip 4. Acute decompensated liver cirrhosis with ascites/pleural effusion with hepatic encephalopathy Status post almost 7 L paracentesis. No fluid for thoracocentesis Ammonia level is 15. Continue on lactulose and rifaximin 5. Esophageal stenosis, status post dilatation GI following 6. Acute GI bleed, status post EGD, findings showed nonbleeding erosive gastropathy, multiple nonbleeding duodenal ulcers, multiple oozing duodenal ulcers status post injection and heater probe treatment Continue on Carafate and PPI twice daily 4. Abnormal CT abdomen pelvis, right colitis versus mass, continue on IV Unasyn, Patient has been asymptomatic, blood cultures have been negative Was switched to oral Augmentin in a.m. for total of 1 week 5. Type 2 DM, blood sugars are controlled, Continue to hold Jardiance Continue on insulin sliding scale with blood glucose checks ACHS 6. Hypertension, fairly controlled, continue to hold lisinopril 7. PRUDENCE on CKD stage III, likely prerenal, creatinine remains at 2.38 Previous level was 1.09, Will check kidney, bladder USG Will consult nephrology Repeat blood work in am 8.Acute metabolic/hepatic encephalopathy, also possibly secondary to hypercapnia, improving Ammonia level is 15, will continue to monitor. 9. DVT prophylaxis?SCDs Charges/Coding Visit Charges Inpatient E&M: 31486 Subs Hosp L2
--- NOTE | 2022-03-09 11:17 | PCM.PN.CARD ---
Subjective Subjective The patient was seen and evaluated. Appears to be doing fairly well. Objective Data Vital Signs: Vital Signs Temp Pulse Resp BP Pulse Ox O2 Del Method O2 Flow Rate 97.4 F L 89 18 123/55 H 92 Nasal Cannula 1 03/09/22 10:43 03/09/22 10:43 03/09/22 10:43 03/09/22 10:43 03/09/22 10:43 03/09/22 10:43 03/09/22 10:43 FiO2 30 03/09/22 04:35 Oxygen Flow Rate (L/min) 1 Oxygen Delivery Method [2] Bi-pap Oxygen Delivery Method [1 ( Bi-pap Initial Baseline)] Oxygen Delivery Method Nasal Cannula Weight: 209 lb Body Mass Index (BMI) 29.7 Intake & Output: Intake and Output for Last 24 Hours 03/07/22 03/08/22 03/09/22 23:59 23:59 23:59 Intake Total 817.73 / 817.73 224 / 224 112 / 112 Output Total 9200 / 9250 475 / 545 170 / 170 Balance -8382.27 / -8432.27 -251 / -321 -58 / -58 Lab / Micro Data Result Diagrams: 03/09/22 03:35 03/09/22 03:35 Labs: Laboratory Results - last 24 hr 03/06/22 18:45: Urine Color Jill, Urine Clarity Clear, Urine pH 5.0, Ur Specific [place] 1.025, Urine Protein 100 H, Urine Glucose (UA) Normal, Urine Ketones 5 H, Urine Occult Blood 10 H, Urine Nitrite Negative, Urine Bilirubin 3 H, Urine Urobilinogen 4 H, Ur Leukocyte Esterase 25 H, Urine RBC 0 SEEN, Urine WBC 0-5 SEEN, Ur Squamous Epith Cells 0 SEEN, Urine Bacteria RARE, Urine Mucus 0 SEEN 03/07/22 12:32: Fl Pathologist Comment Reviewed 03/07/22 12:32: Miscellaneous Cytology SEE PATHOLOGY REPORT 03/07/22 18:30: Tumor Marker AFP < 1.8 03/08/22 13:29: POC Glucose 111 H 03/08/22 17:48: POC Glucose 124 H 03/09/22 00:10: POC Glucose 182 H 03/09/22 03:35: WBC 4.2 L, RBC 2.86 L, Hgb 9.5 L, Hct 31.2 L, MCV 109.1 H, MCH 33.2 H, MCHC 30.4 L, RDW Std Deviation 62.8 H, RDW Coeff of Jean Claude 15.9 H, Plt Count 75 L, MPV 10.1, Immature Gran % (Auto) 0.500, Neut % (Auto) 78.0 H, Lymph % (Auto) 11.7 L, [place] % (Auto) 9.8, Eos % (Auto) 0.0, Baso % (Auto) 0.0, Absolute Neuts (auto) 3.3, Absolute Lymphs (auto) 0.49 L, Nucleated RBC % 0, Differential Comment SCANNED, Diff Path Review May foll, Platelet Estimate MOD DEC, Anisocytosis 1+, Macrocytosis 1+ 03/09/22 03:35: Sodium 145, Potassium 4.7, Chloride 105, Carbon Dioxide 34.0 H, Anion Gap 6, BUN 67 H, Creatinine 2.63 H, Estim Creat Clear Calc 23.90, Est GFR (MDRD) Af Amer 30 L, Est GFR (MDRD) Non-Af 25 L, BUN/Creatinine Ratio 25.5 H, Glucose 121 H, Calcium 7.9 L, Total Bilirubin 1.30 H, AST 39 H, ALT 7 L, Alkaline Phosphatase 74, Total Protein 5.7 L, Albumin 2.7 L, Globulin 3.0, Albumin/Globulin Ratio 0.9 03/09/22 03:35: Ammonia 15.0 03/09/22 05:53: POC Glucose 119 H Micro: Microbiology 03/06/22 18:45 Urine Catheter - Catheter Urine Culture - Preliminary Alpha Hemolytic Streptococcus 03/06/22 17:55 Blood Culture (Wb) - Anticubital Right Blood Culture - Preliminary No growth in 48 hours. 03/06/22 17:10 Blood Culture (Wb) - Anticubital Left Blood Culture - Preliminary No growth in 48 hours. 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 Labs/Tests 03/06/22 18:45: Urine Color Jill, Urine Clarity Clear, Urine pH 5.0, Ur Specific [place] 1.025, Urine Protein 100 H, Urine Glucose (UA) Normal, Urine Ketones 5 H, Urine Occult Blood 10 H, Urine Nitrite Negative, Urine Bilirubin 3 H, Urine Urobilinogen 4 H, Ur Leukocyte Esterase 25 H, Urine RBC 0 SEEN, Urine WBC 0-5 SEEN 03/08/22 18:30: pH 7.12 L*, Bicarbonate Actual 37.2 H, Base Excess 8 H, O2 Saturation 88 L, ABG pCO2 114.3 H*, ABG pO2 78, Jonah Test N/A 03/08/22 23:17: pH 7.25 L, Bicarbonate Actual 34.8 H, Base Excess 8 H, O2 Saturation 94 L, ABG pCO2 79.9 H*, ABG pO2 85, Jonah Test Negative 03/09/22 03:35: WBC 4.2 L, RBC 2.86 L, Hgb 9.5 L, Hct 31.2 L, MCV 109.1 H, MCH 33.2 H, MCHC 30.4 L, Plt Count 75 L, MPV 10.1, Immature Gran % (Auto) 0.500, Neut % (Auto) 78.0 H, Lymph % (Auto) 11.7 L, [place] % (Auto) 9.8, Eos % (Auto) 0.0, Baso % (Auto) 0.0, Absolute Neuts (auto) 3.3, Nucleated RBC % 0 03/09/22 03:35: Sodium 145, Potassium 4.7, Chloride 105, Carbon Dioxide 34.0 H, Anion Gap 6, BUN 67 H, Creatinine 2.63 H, Est GFR (MDRD) Af Amer 30 L, Est GFR (MDRD) Non-Af 25 L, BUN/Creatinine Ratio 25.5 H, Glucose 121 H, Calcium 7.9 L, Total Bilirubin 1.30 H Rhythm: EKG: ECHO: Stress Test: Cardiac Cath: PCI: CT Surgery: Holter monitor: EPS: PPM: CXR: Chest CT Scan: Physical Exam Const Constitutional Narrative: No conversational dyspnea on 2 L/min. Patient is following some commands today. HEENT normocephalic and head/scalp atraumatic HEENT Narrative: Dry mucous membranes. Eyes EOMs intact bilaterally and conjunctivae normal Neck full ROM Lymph Lymphatic: no lymphadenopathy noted Chest Chest: abnormal inspection of the chest increased A-P diameter Resp normal respiratory effort Effort and Inspection: Negative for actively coughing or uses accessory muscles Auscultation: diminished lung sounds; Negative for rales, rhonchi or wheezes Percussion: Negative for dullness Cardio regular rate, regular rhythm, S1 normal heart sound, S2 normal heart sound, no murmurs, no rub and no gallops Cardio Narrative: Significant ectopy noted on telemetry. GI normal to inspection, nondistended, normoactive bowel sounds, soft to palpation and non-tender Extremity General Extremity: edema Neuro moves all extremities and no focal motor deficits Psych cooperative Mood & Affect: flat affect Assessment & Plan Assessment/Plan (1) Elevated troponin: PLAN: The patient is found to have elevated high-sensitivity troponin I levels. He has preserved left ventricular systolic function. The plan with his multiple comorbidities will be to continue him on medical therapy. His significant renal deficiency and history of thrombocytopenia would limit any major therapeutic interventions. (2) Heart failure: PLAN: The patient presents with findings concerning for underlying CHF. He has preserved left ventricular systolic function and a dilated right ventricle with global dysfunction. The above suggests some right-sided failure. Based upon the patient's transthoracic echocardiogram it appears his overall LV systolic function is preserved. (3) HLD (hyperlipidemia): PLAN: We will continue with secondary risk factor modification. (4) Hypertension: PLAN: His blood pressures are much stable at this time and will continue current medications.
--- NOTE | 2022-03-09 11:36 | PCM.PROGNOTE ---
Subjective Subjective Patient underwent an upper endoscopy yesterday for an upper GI bleed and was discovered to have multiple ulcers in his upper GI tract. Objective Data Objective Data Vital Signs: Vital Signs Temp Pulse Resp BP Pulse Ox O2 Del Method O2 Flow Rate 97.4 F L 89 18 123/55 H 92 Nasal Cannula 1 03/09/22 10:43 03/09/22 10:43 03/09/22 10:43 03/09/22 10:43 03/09/22 10:43 03/09/22 10:43 03/09/22 10:43 FiO2 30 03/09/22 04:35 Oxygen Flow Rate (L/min) 1 Oxygen Delivery Method [2] Bi-pap Oxygen Delivery Method [1 ( Bi-pap Initial Baseline)] Oxygen Delivery Method Nasal Cannula Weight: 209 lb Body Mass Index (BMI) 29.7 Intake & Output: Intake and Output for Last 24 Hours 03/07/22 03/08/22 03/09/22 23:59 23:59 23:59 Intake Total 817.73 / 817.73 224 / 224 112 / 112 Output Total 9200 / 9250 475 / 545 170 / 170 Balance -8382.27 / -8432.27 -251 / -321 -58 / -58 Lab / Micro Data Result Diagrams: 03/09/22 03:35 03/09/22 03:35 Labs: Laboratory Results - last 24 hr 03/06/22 18:45: Urine Color Jill, Urine Clarity Clear, Urine pH 5.0, Ur Specific [place] 1.025, Urine Protein 100 H, Urine Glucose (UA) Normal, Urine Ketones 5 H, Urine Occult Blood 10 H, Urine Nitrite Negative, Urine Bilirubin 3 H, Urine Urobilinogen 4 H, Ur Leukocyte Esterase 25 H, Urine RBC 0 SEEN, Urine WBC 0-5 SEEN, Ur Squamous Epith Cells 0 SEEN, Urine Bacteria RARE, Urine Mucus 0 SEEN 03/07/22 12:32: Fl Pathologist Comment Reviewed 03/07/22 12:32: Miscellaneous Cytology SEE PATHOLOGY REPORT 03/07/22 18:30: Tumor Marker AFP < 1.8 03/08/22 13:29: POC Glucose 111 H 03/08/22 17:48: POC Glucose 124 H 03/09/22 00:10: POC Glucose 182 H 03/09/22 03:35: WBC 4.2 L, RBC 2.86 L, Hgb 9.5 L, Hct 31.2 L, MCV 109.1 H, MCH 33.2 H, MCHC 30.4 L, RDW Std Deviation 62.8 H, RDW Coeff of Jean Claude 15.9 H, Plt Count 75 L, MPV 10.1, Immature Gran % (Auto) 0.500, Neut % (Auto) 78.0 H, Lymph % (Auto) 11.7 L, [place] % (Auto) 9.8, Eos % (Auto) 0.0, Baso % (Auto) 0.0, Absolute Neuts (auto) 3.3, Absolute Lymphs (auto) 0.49 L, Nucleated RBC % 0, Differential Comment SCANNED, Diff Path Review May , Platelet Estimate MOD DEC, Anisocytosis 1+, Macrocytosis 1+ 03/09/22 03:35: Sodium 145, Potassium 4.7, Chloride 105, Carbon Dioxide 34.0 H, Anion Gap 6, BUN 67 H, Creatinine 2.63 H, Estim Creat Clear Calc 23.90, Est GFR (MDRD) Af Amer 30 L, Est GFR (MDRD) Non-Af 25 L, BUN/Creatinine Ratio 25.5 H, Glucose 121 H, Calcium 7.9 L, Total Bilirubin 1.30 H, AST 39 H, ALT 7 L, Alkaline Phosphatase 74, Total Protein 5.7 L, Albumin 2.7 L, Globulin 3.0, Albumin/Globulin Ratio 0.9 03/09/22 03:35: Ammonia 15.0 03/09/22 05:53: POC Glucose 119 H Micro: Microbiology 03/06/22 18:45 Urine Catheter - Catheter Urine Culture - Preliminary Alpha Hemolytic Streptococcus 03/06/22 17:55 Blood Culture (Wb) - Anticubital Right Blood Culture - Preliminary No growth in 48 hours. 03/06/22 17:10 Blood Culture (Wb) - Anticubital Left Blood Culture - Preliminary No growth in 48 hours. ABG Data ABG results: ABG 03/08/22 03/08/22 18:30 23:17 Specimen Type ART ART Sample Site R Radial L Radial pH 7.12 L* 7.25 L Bicarbonate Actual 37.2 H 34.8 H Total CO2 41 37 Base Excess 8 H 8 H O2 Saturation 88 L 94 L O2 % 30 30 ABG pCO2 114.3 H* 79.9 H* ABG pO2 78 85 Jonah Test N/A Negative Respiration Rate 14 14 O2 Delivery Device BiPAP BiPAP Tidal Volume 500 500 POC PEEP 8 8 Crit Call To/Read Back Yes Yes Blood Gas Notified Whom JACOB Singh Physical Exam HEENT normocephalic and head/scalp atraumatic HEENT Narrative: Dry mucous membranes. Eyes EOMs intact bilaterally and conjunctivae normal Neck full ROM Lymph Lymphatic: no lymphadenopathy noted Chest Chest: abnormal inspection of the chest increased A-P diameter Resp normal respiratory effort Effort and Inspection: Negative for actively coughing or uses accessory muscles Auscultation: diminished lung sounds; Negative for rales, rhonchi or wheezes Percussion: Negative for dullness Cardio regular rate, regular rhythm, S1 normal heart sound, S2 normal heart sound, no murmurs, no rub and no gallops Cardio Narrative: Significant ectopy noted on telemetry. GI normal to inspection, nondistended, normoactive bowel sounds, soft to palpation and non-tender Extremity General Extremity: edema Neuro moves all extremities and no focal motor deficits Psych cooperative Mood & Affect: flat affect Assessment & Plan Assessment/Plan (1) Acute and chronic respiratory failure with hypercapnia: PLAN: Patient is currently doing better from a respiratory standpoint. He is on 2 L of oxygen. He is being followed by digital hardware design engineer and primary team. (2) Cirrhosis: PLAN: Cirrhosis from unknown etiology at this time. 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 He did not have any varices on his EGD yesterday. There was also no signs of portal gastropathy or angiodysplasias. Recommend to check an ammonia level and give him lactulose 20 cc p.o. twice a day to maintain 3 bowel movements a day plus Xifaxan 5 to 50 mg twice a day. (3) GI bleed: PLAN: GI bleed secondary to multiple ulcers in his duodenum and extending into the jejunum status post endoscopic treatment. I will check a gastrin level to see if he has hypergastrinemia which could be driving his severe ulcerative disease involving the proximal small bowel. Continue PPI therapy in antisecretory therapy. Charges/Coding Visit Charges Inpatient E&M: 79899 Subs Hosp L3
[2022-03-09 12:10] LABS: Bedside Glucose 106 mg/dL (74-106)
[2022-03-09] MEDS: Sucralfate 1 GM Tablet PO ×2 (16:32→21:03)
[2022-03-09] MEDS: Furosemide 40 MG Tablet PO (16:32)
[2022-03-09 16:41] LABS: Bedside Glucose 93 mg/dL (74-106)
[2022-03-09] MEDS: Pramipexole Di-HCl 1 MG Tablet PO (21:02)
[2022-03-09] MEDS: Tamsulosin HCl 0.4 MG Capsule 0.8 MG PO (21:02)
[2022-03-09] MEDS: traZODone 50 MG Tablet PO (21:02)
[2022-03-09] MEDS: Pantoprazole Sodium 40 MG Tablet PO (21:03)
[2022-03-09] MEDS: Amox/Clavulanate 500 MG Tablet PO (21:03)
[2022-03-10] VITALS (7 sets, daily range): BP systolic 105–127; BP diastolic 48–69; PULSE 63–104; RESP 18; TEMP 36.4–37; O2SAT 92–96
[2022-03-10] MEDS: Insulin Lispro 100 UNIT/ML INSULN.PEN SC ×2 (00:09→11:17)
[2022-03-10 00:41] LABS: Bedside Glucose 154 mg/dL (74-106)
[2022-03-10 06:17] LABS: Absolute Lymphocyte Count 0.53 X10^3/uL (0.83-4.51); Absolute Neutrophil Count 2.7 X10^3/uL (2.0-7.7); Eosinophil# 0.04 X10^3/uL; Eosinophils% 1.1 % (0-5); Hematocrit 30.4 % (40-54); Hemoglobin 9.2 g/dL (13.0-16.5); Lymphocyte # 0.53 X10^3/ul (0.83-4.51); Lymphocyte % 14.3 % (19-41); Mean Corp Hgb Conc 30.3 g/dL (32-36); Mean Platelet Vol. 9.9 fl (6.2-12.0); Monocyte% 10.8 % (0-10); NRBC Flagged by Analyzer 0 % (0-5); Neutrophil # 2.71 X10^3/uL (2.7-7.7); Neutrophil % 73.3 % (47-70); POSITIVE COUNT YES; POSITIVE DIFFERENTIAL YES; Platelet Count 65 K/mm3 (150-450); RBC Distribution Width CV 15.9 % (11.6-14.6); RBC Distribution Width SD 62.4 fl (35.1-43.9); Red Blood Count 2.79 M/mm3 (4.6-6.2); White Blood Count 3.7 K/mm3 (4.4-11.0)
[2022-03-10] MEDS: Carbidopa/Levodopa 25/100 Tablet PO ×3 (06:27→16:23)
[2022-03-10] MEDS: Levothyroxine 125 MCG Tablet PO (06:27)
[2022-03-10] MEDS: Sucralfate 1 GM Tablet PO ×4 (06:27→20:33)
[2022-03-10 06:37] LABS: Differential Indicated SCAN CRITERIA MET
[2022-03-10 06:47] LABS: ALB/GLOB Ratio 0.9 RATIO (0.9-2.4); AST(SGOT) 36 U/L (15-37); Alanine Aminotransfer ALT/SGPT < 6 U/L (16-61); Albumin, Serum 2.6 g/dL (3.2-5.0); Alkaline Phosphatase 73 U/L (45-117); Anion Gap 8 (5-15); BUN 68 mg/dL (7-18); BUN/Creat Ratio 27.3 RATIO (10-20); Calcium,Total 7.8 mg/dL (8.5-10.1); Chloride 102 mmol/L (98-107); Creatinine, Serum 2.49 mg/dL (0.70-1.30); EST Glomerular Filtration Rate 27 mL/min (>60); Est Glom Filt Rate - Afr Amer 32 mL/min (>60); Estimated Creatinine Clearance 25.25 ml/min; Globulin 2.9 g/dL (2.2-4.2); Glucose 124 mg/dL (74-106); Potassium 3.7 mmol/L (3.5-5.1); Protein, Total 5.5 g/dL (6.4-8.2); Sodium Level 143 mmol/L (136-145)
[2022-03-10 06:50] LABS: Bedside Glucose 134 mg/dL (74-106)
[2022-03-10 06:56] LABS: Differential Comment SCANNED
--- NOTE | 2022-03-10 08:04 | PCM.PN.HOSP ---
Subjective Subjective Follow-up for acute combined respiratory failure/pleural effusion/non-STEMI: Patient was seen and examined.?He is more awake. He is a min 2 person assist. Denies any chest pain, dizziness, palpitations. Objective Data Objective Data Vital Signs: Vital Signs Temp Pulse Resp BP Pulse Ox O2 Del Method O2 Flow Rate 98.6 F 102 H 18 127/58 H 96 Nasal Cannula 2 03/10/22 04:13 03/10/22 04:13 03/10/22 04:13 03/10/22 04:13 03/10/22 04:13 03/10/22 07:48 03/10/22 07:48 FiO2 92 03/10/22 07:48 Oxygen Flow Rate (L/min) 2 Oxygen Delivery Method [2] Bi-pap Oxygen Delivery Method [1 ( Bi-pap Initial Baseline)] Oxygen Delivery Method Nasal Cannula Weight: 95.1 kg Body Mass Index (BMI) 29.7 Intake & Output: Intake and Output for Last 24 Hours 03/08/22 03/09/22 03/10/22 23:59 23:59 23:59 Intake Total 224 / 224 612 / 612 Output Total 475 / 545 1170 / 1170 350 / 350 Balance -251 / -321 -558 / -558 -350 / -350 Lab / Micro Data Result Diagrams: 03/10/22 05:27 03/10/22 05:27 Labs: Laboratory Results - last 24 hr 03/06/22 18:45: Urine Color Jill, Urine Clarity Clear, Urine pH 5.0, Ur Specific [place] 1.025, Urine Protein 100 H, Urine Glucose (UA) Normal, Urine Ketones 5 H, Urine Occult Blood 10 H, Urine Nitrite Negative, Urine Bilirubin 3 H, Urine Urobilinogen 4 H, Ur Leukocyte Esterase 25 H, Urine RBC 0 SEEN, Urine WBC 0-5 SEEN, Ur Squamous Epith Cells 0 SEEN, Urine Bacteria RARE, Urine Mucus 0 SEEN 03/07/22 18:30: Tumor Marker AFP < 1.8 03/09/22 11:14: POC Glucose 106 03/09/22 16:17: POC Glucose 93 03/10/22 00:05: POC Glucose 154 H 03/10/22 05:27: WBC 3.7 L, RBC 2.79 L, Hgb 9.2 L, Hct 30.4 L, MCV 109.0 H, MCH 33.0 H, MCHC 30.3 L, RDW Std Deviation 62.4 H, RDW Coeff of Jean [place] 15.9 H, Plt Count 65 L, MPV 9.9, Immature Gran % (Auto) 0.500, Neut % (Auto) 73.3 H, Lymph % (Auto) 14.3 L, [place] % (Auto) 10.8 H, Eos % (Auto) 1.1, Baso % (Auto) 0.0, Absolute Neuts (auto) 2.7, Absolute Lymphs (auto) 0.53 L, Nucleated RBC % 0, Differential Comment SCANNED, Diff Path Review June03/10/22 05:27: Sodium 143, Potassium 3.7, Chloride 102, Carbon Dioxide 33.0 H, Anion Gap 8, BUN 68 H, Creatinine 2.49 H, Estim Creat Clear Calc 25.25, Est GFR (MDRD) Af Amer 32 L, Est GFR (MDRD) Non-Af 27 L, BUN/Creatinine Ratio 27.3 H, Glucose 124 H, Calcium 7.8 L, Total Bilirubin 1.00, AST 36, ALT < 6 L, Alkaline Phosphatase 73, Total Protein 5.5 L, Albumin 2.6 L, Globulin 2.9, Albumin/Globulin Ratio 0.9 03/10/22 06:24: POC Glucose 134 H Micro: Microbiology 03/06/22 18:45 Urine Catheter - Catheter Urine Culture - Preliminary Alpha Hemolytic Streptococcus 03/06/22 17:55 Blood Culture (Wb) - Anticubital Right Blood Culture - Preliminary No growth in 48 hours. 03/06/22 17:10 Blood Culture (Wb) - Anticubital Left Blood Culture - Preliminary No growth in 48 hours. Physical Exam Narrative Physical exam: General: Alert, Oriented, Cooperative,off oxygen HEENT: Atraumatic Oral: Moist Mucosa Neck: Supple Lungs: Diminished to auscultation Cardiovascular: HS I+II, regular, no murmurs Abdomen: Abdomen is distended, bowel Sounds Present, Soft, Non Tender, ascites+ Extremities: Bilateral leg edema+1 Skin: No rashes, No breakdown Neurological: Grossly intact Psych/Mental Status: Appropriate Assessment & Plan Assessment/Plan (1) Acute and chronic respiratory failure with hypercapnia: PLAN: Plan [id number]-old with past medical history of Parkinson's disease, type II DM, chronic diastolic CHF who comes in with confusion. 1. Acute combined respiratory failure secondary to acute fluid overload/right hepatothorax/acute CHF exacerbation, resolved Currently on room air 2. Acute exacerbation of acute on chronic CHF, EF 65%, improving Continue on oral Lasix, strict I & Os, daily weight, fluid restriction, SNOW-wraps to legs 3. Acute non-STEMI, admitting EKG shows some lateral T wave inversions 2D echo shows grossly normal LV function, EF 65% Cardiology following, medical management recommended, off heparin drip 4. Acute decompensated liver cirrhosis with ascites/pleural effusion with hepatic encephalopathy This is apparently a new diagnosis to patient Status post almost 7 L paracentesis. No fluid for thoracocentesis GI following Continue on lactulose and rifaximin 5. Esophageal stenosis, status post dilatation GI following 6. Acute GI bleed, status post EGD, findings showed nonbleeding erosive gastropathy, multiple nonbleeding duodenal ulcers, multiple oozing duodenal ulcers status post injection and heater probe treatment Continue on Carafate and PPI twice daily 4. Abnormal CT abdomen pelvis, right colitis versus mass, continue on IV Unasyn, Patient has been asymptomatic, blood cultures have been negative Was switched to oral Augmentin in a.m. for total of 1 week 5. Type 2 DM, blood sugars are controlled, Continue to hold Jardiance Continue on insulin sliding scale with blood glucose checks ACHS 6. Hypertension, fairly controlled, continue to hold lisinopril on account of PRUDENCE 7. PRUDENCE on CKD stage III, likely prerenal, creatinine remains at 2.49 Previous level was 1.09, Kidney, bladder USG is pending Nephrology consulted Repeat blood work in am 8.Acute metabolic/hepatic encephalopathy, also possibly secondary to hypercapnia, improving Ammonia level is 15, will continue to monitor. 9. Parkinson's disease, continuing on Sinemet 10. DVT prophylaxis?SCDs Charges/Coding Visit Charges Inpatient E&M: 03069 Subs Hosp L2
--- NOTE | 2022-03-10 08:08 | CON.PCM.RE_ITS ---
Assessment & Plan Assessment/Plan (1) PRUDENCE (acute kidney injury): (2) Cirrhosis: (3) Acute and chronic respiratory failure with hypercapnia: PLAN: Plan Impression/Plan: The patient is a 76-year-old man with past history of type 2 diabetes mellitus, hypertension, COPD, Parkinson's disease, and hypothyroidism. The patient was admitted on 03/06/2022 for acute and chronic hypoxic and hypercapnic respiratory failure. He was found to have a new onset right pleural effusion along with ascites and liver cirrhosis. Nephrology is following for acute kidney injury. Acute kidney injury. Baseline renal function has been relatively normal. His serum creatinine was 1.09 mg/dL with estimated GFR of 69 mL/min prior to admission on 02/20/2022. Suspect PRUDENCE is from prerenal causes: The patient has cirrhosis with third spacing of fluid (pleural effusion/ascites), low oncotic pressure, and poor oral intake prior to admission. Thus far, serum creatinine has peaked at 2.63 mg/dL on 03/09/2022. Renal function is slightly improved today with serum creatinine of 2.49 mg/dL. Continue to encourage oral solute (protein) intake but limit dietary sodium and chloride to less than 3 to 4 g/day. Okay to continue furosemide for now since renal function has stabilized with careful monitoring of volume status and renal function. Continue to keep MAP around 75-80 mmHg in the setting of cirrhosis. Agree with continuing midodrine. If there is consistent MAP of less than 70 mmHg, I would back off diuretic. We will arrange for outpatient follow-up for this patient who likely will be le ft with some CKD with his comorbidities. Current medications are reviewed. Okay to continue current medications. However, if estimated GFR falls below 25 mL/min consistently, I would recommend stopping SGLT2 inhibitor. Cirrhosis of the liver. Etiology of cirrhosis is being investigated by the GI service. There is no evidence of hepatorenal cause for PRUDENCE at this point. However, the patient remains at risk. Typically, HRS is caused by sudden change in perfusion pressure. Therefore, I would recommend keeping MAP around 75 to 80 mmHg. If large-volume paracentesis (5 L or more) is needed, I would give IV albumin at 6 to 8 g/L of ascites fluid removed. Acute on chronic hypoxic and hypercapnic respiratory failure. The patient has pleural effusion which may be related to cirrhosis as well. Okay to continue diuretic from the nephrology standpoint with careful monitoring of renal function as discussed above. He has a history of COPD and currently requires 2 L nasal cannula oxygen. COPD management as per pulmonary medicine. Nephrology plan discussed with Dr. Hernandez. HPI Consult Data Date of Consult: 03/10/22 HPI Narrative Reason for Consultation: PRUDENCE HPI Narrative: RICHARD PARRY is a 76-year-old man with past history of type 2 diabetes mellitus, hypertension, COPD, Parkinson's disease, and hypothyroidism. The patient presented to the hospital on 03/06/2022 with shortness of breath. The patient was found to be hypoxic with SPO2 of 53% when EMS assessed him in the field. On evaluation in the ED, the patient was found to have a right sided pleural effusion as well as ascites. The patient was admitted for treatment of acute and chronic hypoxic and hypercapnic respiratory failure. The patient has subsequently been diagnosed with type II NSTEMI. Echocardiogram on 03/06/2022 showed preserved ejection fraction at 65% without diastolic dysfunction. However, echocardiogram did show right ventricular dilation and global right ventricular systolic dysfunction. Right ventricular systolic pressure was 35 mmHg. Because of ascites, additional abdominal imaging was obtained revealing liver cirrhosis. The patient has undergone paracentesis with 7 L of ascites fluid removed. Nephrology is asked to see the patient because of PRUDENCE. Prior to admission, serum creatinine was 1.09 mg/dL on 02/20/2022. Prior to admission, the patient had been on lisinopril for hypertension. The patient denies current chest pain, nausea, or diarrhea. He has some urinary hesitancy prior to admission. However, CT of abdomen and pelvis from 03/06/2022 did not show any hydronephrosis. Appetites been improving. His dyspnea has also improved compared to presentation. [facility] Medical History (Updated 03/09/22 @ 11:[address] Connors Friend, DO) Anxiety Asthma COPD (chronic obstructive pulmonary disease) Diabetes Former smoker Hyperlipidemia Hypertension Parkinsonian features Home Medications metformin 500 mg 24 hr tablet,extended release 500 mg PO DINNER diabetes 06/26/15 [History Last Taken 06/25/15] tamsulosin 0.4 mg capsule 0.8 mg PO QHS prostate 06/26/15 [History Last Taken 06/25/15] carbidopa 25 mg-levodopa 100 mg tablet 2 tab PO TIDAC parkinsons 09/11/15 [History Last Taken Unknown] empagliflozin 10 mg tablet (Jardiance) 10 mg PO DAILY diabetes 01/09/18 [History Last Taken Unknown] lisinopril 10 mg tablet (Zestril) 10 mg PO DAILY blood pressure 01/09/18 [History Last Taken Unknown] tramadol 50 mg tablet 50 mg PO Q6H PRN pain 3 days #12 tabs 12/02/21 [Rx Last Taken Unknown] levothyroxine 125 mcg tablet (Levoxyl) 125 mcg PO DAILY THYROID 03/06/22 [ History Last Taken Unknown] ropinirole 2 mg tablet 2 mg PO QHS RESTLESS LEGS 03/06/22 [History Last Taken Unknown] trazodone 50 mg tablet 30 mg PO DAILY SLEEP 03/06/22 [History Last Taken Unknown] Allergy/AdvReac Type Severity Reaction Status Date / Time aloe vera AdvReac Rash Verified 03/06/22 17:15 diclofenac AdvReac intolerance, Verified 03/06/22 17:15 leg edema Surgical History Hx of hand surgery Social History Smoking Status: Former smoker ROS ROS Narrative 11/26 ROS was done and is otherwise noncontributory aside from what is already documented in HPI. Physical Exam Narrative General: Alert. Oriented x1. NAD. HEENT: Normocephalic, atraumatic. Mucous membrane moist. PERRLA, EOMI. Hearing is intact. Speech is somewhat slurred. Neck: Supple, no JVD, no bruit. Trachea is midline. No lymphadenopathy. Cardiovascular: Normal S1, S2. No rubs, murmurs, or gallops. Lungs: Clear to auscultation anteriorly. Decreased breath sound at bases bilaterally posteriorly. Abdomen: Slightly distended, normal bowel sound, soft, nontender, no guarding or rebound. Extremities: No clubbing, cyanosis, or edema. Musculoskeletal: Full passive range of motion, no joint swelling. Skin: Warm and dry, no rash. Psychiatric: Normal mood and affect. Neurologic: No focal neurologic deficits. Lab / Micro Data Result Diagrams: 03/10/22 05:27 03/10/22 05:27 Labs: Laboratory Results - last 24 hr 03/06/22 18:45: Urine Color Jill, Urine Clarity Clear, Urine pH 5.0, Ur Specific [place] 1.025, Urine Protein 100 H, Urine Glucose (UA) Normal, Urine Ketones 5 H, Urine Occult Blood 10 H, Urine Nitrite Negative, Urine Bilirubin 3 H, Urine Urobilinogen 4 H, Ur Leukocyte Esterase 25 H, Urine RBC 0 SEEN, Urine WBC 0-5 SEEN, Ur Squamous Epith Cells 0 SEEN, Urine Bacteria RARE, Urine Mucus 0 SEEN 03/07/22 18:30: Tumor Marker AFP < 1.8 03/09/22 11:14: POC Glucose 106 03/09/22 16:17: POC Glucose 93 03/10/22 00:05: POC Glucose 154 H 03/10/22 05:27: WBC 3.7 L, RBC 2.79 L, Hgb 9.2 L, Hct 30.4 L, MCV 109.0 H, MCH 33.0 H, MCHC 30.3 L, RDW Std Deviation 62.4 H, RDW Coeff of [place] 15.9 H, Plt Count 65 L, MPV 9.9, Immature Gran % (Auto) 0.500, Neut % (Auto) 73.3 H, Lymph % (Auto) 14.3 L, [place] % (Auto) 10.8 H, Eos % (Auto) 1.1, Baso % (Auto) 0.0, Absolute Neuts (auto) 2.7, Absolute Lymphs (auto) 0.53 L, Nucleated RBC % 0, Differential Comment SCANNED, Diff Path Review June03/10/22 05:27: Sodium 143, Potassium 3.7, Chloride 102, Carbon Dioxide 33.0 H, Anion Gap 8, BUN 68 H, Creatinine 2.49 H, Estim Creat Clear Calc 25.25, Est GFR (MDRD) Af Amer 32 L, Est GFR (MDRD) Non-Af 27 L, BUN/Creatinine Ratio 27.3 H, Glucose 124 H, Calcium 7.8 L, Total Bilirubin 1.00, AST 36, ALT < 6 L, Alkaline Phosphatase 73, Total Protein 5.5 L, Albumin 2.6 L, Globulin 2.9, Albumin/Globulin Ratio 0.9 03/10/22 06:24: POC Glucose 134 H Micro: Microbiology 03/06/22 18:45 Urine Catheter - Catheter Urine Culture - Preliminary Alpha Hemolytic Streptococcus 03/06/22 17:55 Blood Culture (Wb) - Anticubital Right Blood Culture - Preliminary No growth in 48 hours. 03/06/22 17:10 Blood Culture (Wb) - Anticubital Left Blood Culture - Preliminary No growth in 48 hours.
[2022-03-10] MEDS: Midodrine HCl 5 MG Tablet 10 MG PO ×3 (08:37→16:24)
[2022-03-10] MEDS: rifAXIMin 550 MG Tablet PO ×2 (08:37→20:33)
[2022-03-10] MEDS: Empagliflozin 10 MG Tablet PO (08:38)
[2022-03-10] MEDS: Pantoprazole Sodium 40 MG Tablet PO ×2 (08:38→20:33)
[2022-03-10] MEDS: Furosemide 40 MG Tablet PO ×2 (08:38→16:26)
[2022-03-10] MEDS: Amox/Clavulanate 500 MG Tablet PO ×2 (08:38→20:33)
--- NOTE | 2022-03-10 08:43 | PCM.PN.INT ---
Assessment & Plan Assessment/Plan (1) Acute and chronic respiratory failure with hypercapnia: (2) Ascites: (3) Cirrhosis: (4) Diabetes mellitus: QUALIFIERS: Diabetes mellitus type: type 2 Diabetes mellitus complication detail: with polyneuropathy PLAN: Plan RECOMMENDATIONS: 1. Continue midodrine 2. Proceed with GI recommendations 3. Encourage incentive spirometer and out of bed as tolerated. Keep sats between 90 and 94% 4. Await cardiology recommendations 5. Continue lactulose and rifaximin 6. Aggressive volume control will be necessary 7. Hemodynamically stable on minimal nasal cannula oxygen. Will sign off from a critical care perspective IMPRESSIONS: 1. Acute on chronic hypercarbic respiratory failure secondary to massive ascites, in the setting of COPD/asthma overlap Patient with new right-sided atelectasis secondary to massive ascites. Chest x-ray after paracentesis showed mainly compressive atelectasis. Monitoring fluid status will be paramount given baseline COPD/asthma. Given colonic thickening, malignancy would be a concern. Cirrhosis would also be a concern. Patient still requiring 3 L nasal cannula to maintain saturations. Patient does not appear to be retaining CO2 at this time. Reasonable to continue with BiPAP with sleep. Patient can be evaluated for nocturnal BiPAP as an outpatient. 2. Elevated troponin/Acute on chronic diastolic CHF/suspected type II pulmonary hypertension Patient currently on a heparin drip. Echocardiogram from 2018 did show diastolic dysfunction with an EF of 60%. Patient did have elevated pulmonary artery pressures of 36 mmHg with evidence of right ventricular dysfunction. Cardiology has been consulted. Some concern patient has an element of elevated troponin secondary to global hypoxia with a type II NSTEMI. 3. Cirrhosis with possible colon mass and ascites Unclear if patient has a known diagnosis of cirrhosis. GI has been consulted and did not find some lesions in the EGD. Clinical suspicion is ascites is secondary to new onset cirrhosis. Await GI recommendations for colonic investigation. 4. Diabetes mellitus type 2/anxiety/Parkinson's features/hypertension/hyperlipidemia/obesity/advanced age Complicates care, management, recovery and prognosis. We will attempt to avoid steroids as this will worsen hyperglycemia and mentation. Okay to continue with parkinsonian medications from my perspective. Subjective Subjective Patient did okay overnight from a hemodynamic standpoint. However, patient has been very impulsive and attempting to get out of bed. Patient is redirectable. No further bleeding has been reported. Objective Data Objective Data Vital Signs: Vital Signs Temp Pulse Resp BP Pulse Ox O2 Del Method O2 Flow Rate 36.9 C 104 H 18 105/48 L 92 Nasal Cannula 3 03/10/22 08:33 03/10/22 08:33 03/10/22 08:33 03/10/22 08:33 03/10/22 08:33 03/10/22 08:33 03/10/22 08:33 FiO2 92 03/10/22 07:48 Oxygen Flow Rate (L/min) 3 Oxygen Delivery Method [2] Bi-pap Oxygen Delivery Method [1 ( Bi-pap Initial Baseline)] Oxygen Delivery Method Nasal Cannula Weight: 95.1 kg Body Mass Index (BMI) 29.7 Intake & Output: Intake and Output for Last 24 Hours 03/08/22 03/09/22 03/10/22 23:59 23:59 23:59 Intake Total 224 / 224 612 / 612 Output Total 475 / 545 1170 / 1170 350 / 350 Balance -251 / -321 -558 / -558 -350 / -350 Lab / Micro Data Attestation: I reviewed the patient's lab results. Result Diagrams: 03/10/22 05:27 03/10/22 05:27 Labs: Laboratory Results - last 24 hr 03/06/22 18:45: Urine Color Jill, Urine Clarity Clear, Urine pH 5.0, Ur Specific [place] 1.025, Urine Protein 100 H, Urine Glucose (UA) Normal, Urine Ketones 5 H, Urine Occult Blood 10 H, Urine Nitrite Negative, Urine Bilirubin 3 H, Urine Urobilinogen 4 H, Ur Leukocyte Esterase 25 H, Urine RBC 0 SEEN, Urine WBC 0-5 SEEN, Ur Squamous Epith Cells 0 SEEN, Urine Bacteria RARE, Urine Mucus 0 SEEN 03/07/22 18:30: Tumor Marker AFP < 1.8 03/09/22 11:14: POC Glucose 106 03/09/22 16:17: POC Glucose 93 03/10/22 00:05: POC Glucose 154 H 03/10/22 05:27: WBC 3.7 L, RBC 2.79 L, Hgb 9.2 L, Hct 30.4 L, MCV 109.0 H, MCH 33.0 H, MCHC 30.3 L, RDW Std Deviation 62.4 H, RDW Coeff of [place] 15.9 H, Plt Count 65 L, MPV 9.9, Immature Gran % (Auto) 0.500, Neut % (Auto) 73.3 H, Lymph % (Auto) 14.3 L, [place] % (Auto) 10.8 H, Eos % (Auto) 1.1, Baso % (Auto) 0.0, Absolute Neuts (auto) 2.7, Absolute Lymphs (auto) 0.53 L, Nucleated RBC % 0, Differential Comment SCANNED, Diff Path Review June foll 03/10/22 05:27: Sodium 143, Potassium 3.7, Chloride 102, Carbon Dioxide 33.0 H, Anion Gap 8, BUN 68 H, Creatinine 2.49 H, Estim Creat Clear Calc 25.25, Est GFR (MDRD) Af Amer 32 L, Est GFR (MDRD) Non-Af 27 L, BUN/Creatinine Ratio 27.3 H, Glucose 124 H, Calcium 7.8 L, Total Bilirubin 1.00, AST 36, ALT < 6 L, Alkaline Phosphatase 73, Total Protein 5.5 L, Albumin 2.6 L, Globulin 2.9, Albumin/Globulin Ratio 0.9 03/10/22 06:24: POC Glucose 134 H Micro: Microbiology 03/06/22 18:45 Urine Catheter - Catheter Urine Culture - Preliminary Alpha Hemolytic Streptococcus 03/06/22 17:55 Blood Culture (Wb) - Anticubital Right Blood Culture - Preliminary No growth in 48 hours. 03/06/22 17:10 Blood Culture (Wb) - Anticubital Left Blood Culture - Preliminary No growth in 48 hours. Physical Exam Const alert Constitutional Narrative: No conversational dyspnea. Alert and oriented x1 HEENT normocephalic and head/scalp atraumatic Eyes EOMs intact bilaterally and conjunctivae normal Neck full ROM Lymph Lymphatic: no lymphadenopathy noted Chest Chest: abnormal inspection of the chest increased A-P diameter Resp normal respiratory effort Effort and Inspection: Negative for actively coughing or uses accessory muscles Auscultation: diminished lung sounds; Negative for rales, rhonchi or wheezes Percussion: Negative for dullness Cardio regular rate, regular rhythm, S1 normal heart sound, S2 normal heart sound, no murmurs, no rub and no gallops GI normal to inspection, nondistended, normoactive bowel sounds, soft to palpation and non-tender Extremity General Extremity: edema Neuro moves all extremities and no focal motor deficits Psych Activity / Motor Behavior: restless Mood & Affect: labile affect Charges/Coding Visit Charges Inpatient E&M: 69775 Subs Hosp L2
--- NOTE | 2022-03-10 09:41 | PN.CARD_ITS ---
Subjective Subjective Patient seen and evaluated. Appears to be stable. Objective Data Vital Signs: Vital Signs Temp Pulse Resp BP Pulse Ox O2 Del Method O2 Flow Rate 98.4 F 104 H 18 105/48 L 92 Nasal Cannula 3 03/10/22 08:33 03/10/22 08:33 03/10/22 08:33 03/10/22 08:33 03/10/22 08:33 03/10/22 08:33 03/10/22 08:33 FiO2 92 03/10/22 07:48 Oxygen Flow Rate (L/min) 3 Oxygen Delivery Method [2] Bi-pap Oxygen Delivery Method [1 ( Bi-pap Initial Baseline)] Oxygen Delivery Method Nasal Cannula Weight: 209 lb 10.554 oz Body Mass Index (BMI) 29.7 Intake & Output: Intake and Output for Last 24 Hours 03/08/22 03/09/22 03/10/22 23:59 23:59 23:59 Intake Total 224 / 224 612 / 612 Output Total 475 / 545 1170 / 1170 350 / 350 Balance -251 / -321 -558 / -558 -350 / -350 Lab / Micro Data Result Diagrams: 03/10/22 05:27 03/10/22 05:27 Labs: Laboratory Results - last 24 hr 03/09/22 11:14: POC Glucose 106 03/09/22 16:17: POC Glucose 93 03/10/22 00:05: POC Glucose 154 H 03/10/22 05:27: WBC 3.7 L, RBC 2.79 L, Hgb 9.2 L, Hct 30.4 L, MCV 109.0 H, MCH 33.0 H, MCHC 30.3 L, RDW Std Deviation 62.4 H, RDW Coeff of [place] 15.9 H, Plt Count 65 L, MPV 9.9, Immature Gran % (Auto) 0.500, Neut % (Auto) 73.3 H, Lymph % (Auto) 14.3 L, [place] % (Auto) 10.8 H, Eos % (Auto) 1.1, Baso % (Auto) 0.0, Absolute Neuts (auto) 2.7, Absolute Lymphs (auto) 0.53 L, Nucleated RBC % 0, Differential Comment SCANNED, Diff Path Review June03/10/22 05:27: Sodium 143, Potassium 3.7, Chloride 102, Carbon Dioxide 33.0 H, Anion Gap 8, BUN 68 H, Creatinine 2.49 H, Estim Creat Clear Calc 25.25, Est GFR (MDRD) Af Amer 32 L, Est GFR (MDRD) Non-Af 27 L, BUN/Creatinine Ratio 27.3 H, Glucose 124 H, Calcium 7.8 L, Total Bilirubin 1.00, AST 36, ALT < 6 L, Alkaline Phosphatase 73, Total Protein 5.5 L, Albumin 2.6 L, Globulin 2.9, Albumin/Globulin Ratio 0.9 03/10/22 06:24: POC Glucose 134 H Micro: Microbiology 03/06/22 18:45 Urine Catheter - Catheter Urine Culture - Final Aerococcus viridans. 03/06/22 17:55 Blood Culture (Wb) - Anticubital Right Blood Culture - Preliminary No growth in 48 hours. 03/06/22 17:10 Blood Culture (Wb) - Anticubital Left Blood Culture - Preliminary No growth in 48 hours. Cardiology Labs/Tests 03/10/22 05:27: WBC 3.7 L, RBC 2.79 L, Hgb 9.2 L, Hct 30.4 L, MCV 109.0 H, MCH 33.0 H, MCHC 30.3 L, Plt Count 65 L, MPV 9.9, Immature Gran % (Auto) 0.500, Neut % (Auto) 73.3 H, Lymph % (Auto) 14.3 L, [place] % (Auto) 10.8 H, Eos % (Auto) 1.1, Baso % (Auto) 0.0, Absolute Neuts (auto) 2.7, Nucleated RBC % 0 03/10/22 05:27: Sodium 143, Potassium 3.7, Chloride 102, Carbon Dioxide 33.0 H, Anion Gap 8, BUN 68 H, Creatinine 2.49 H, Est GFR (MDRD) Af Amer 32 L, Est GFR (MDRD) Non-Af 27 L, BUN/Creatinine Ratio 27.3 H, Glucose 124 H, Calcium 7.8 L, Total Bilirubin 1.00 Rhythm: EKG: ECHO: Stress Test: Cardiac Cath: PCI: CT Surgery: Holter monitor: EPS: PPM: CXR: Chest CT Scan: Physical Exam Const no apparent distress HEENT normocephalic and head/scalp atraumatic HEENT Narrative: Dry mucous membranes. Eyes EOMs intact bilaterally and conjunctivae normal Neck full ROM Lymph Lymphatic: no lymphadenopathy noted Chest Chest: abnormal inspection of the chest increased A-P diameter Resp normal respiratory effort Effort and Inspection: Negative for actively coughing or uses accessory muscles Auscultation: diminished lung sounds; Negative for rales, rhonchi or wheezes Percussion: Negative for dullness Cardio regular rate, regular rhythm, S1 normal heart sound, S2 normal heart sound, no murmurs, no rub and no gallops GI normal to inspection, nondistended, normoactive bowel sounds, soft to palpation and non-tender Extremity General Extremity: edema Neuro moves all extremities and no focal motor deficits Psych cooperative Mood & Affect: flat affect Assessment & Plan Assessment/Plan (1) Elevated troponin: PLAN: The patient is found to have elevated high-sensitivity troponin I levels. He has preserved left ventricular systolic function. The plan with his multiple comorbidities will be to continue him on medical therapy. His significant renal deficiency and history of thrombocytopenia would limit any major therapeutic interventions. * Status quo ante (2) Heart failure: PLAN: The patient presents with findings concerning for underlying CHF. He has preserved left ventricular systolic function and a dilated right ventricle with global dysfunction. The above suggests some right-sided failure. Based upon the patient's transthoracic echocardiogram it appears his overall LV systolic function is preserved. (3) HLD (hyperlipidemia): PLAN: We will continue with secondary risk factor modification. (4) Hypertension: PLAN: His blood pressures are much stable at this time and will continue current medications.
[2022-03-10] MEDS: Lactulose 20 GM/30 ML UDC PO ×2 (10:07→20:33)
[2022-03-10 11:45] LABS: Bedside Glucose 152 mg/dL (74-106)
[2022-03-10 16:55] LABS: Bedside Glucose 144 mg/dL (74-106)
[2022-03-10] MEDS: Tamsulosin HCl 0.4 MG Capsule 0.8 MG PO (20:33)
[2022-03-10] MEDS: Pramipexole Di-HCl 1 MG Tablet PO (20:33)
[2022-03-10] MEDS: Menthol/Lanolin/Calamine/Znox 113 GM Tube 1 APPLIC TOPICAL (23:14)
[2022-03-10 23:41] LABS: Bedside Glucose 150 mg/dL (74-106)
[2022-03-11] VITALS (9 sets, daily range): BP systolic 106–131; BP diastolic 48–74; PULSE 82–96; RESP 16–18; TEMP 36.5–36.9; O2SAT 93–99
--- NOTE | 2022-03-11 03:08 | CPS ---
Pt declines use of bipap.
[2022-03-11] MEDS: Sucralfate 1 GM Tablet PO ×4 (06:00→22:48)
[2022-03-11] MEDS: Insulin Lispro 100 UNIT/ML INSULN.PEN SC ×4 (06:00→22:48)
[2022-03-11] MEDS: Levothyroxine 125 MCG Tablet PO (06:00)
[2022-03-11] MEDS: Carbidopa/Levodopa 25/100 Tablet PO ×3 (06:00→16:40)
[2022-03-11 06:12] LABS: Absolute Lymphocyte Count 0.44 X10^3/uL (0.83-4.51); Absolute Neutrophil Count 1.6 X10^3/uL (2.0-7.7); Basophil# 0.01 X10^3/uL; Basophil% 0.4 % (0-1); Eosinophil# 0.07 X10^3/uL; Eosinophils% 2.7 % (0-5); Hemoglobin 9.3 g/dL (13.0-16.5); Lymphocyte # 0.44 X10^3/ul (0.83-4.51); Lymphocyte % 17.3 % (19-41); Mean Corpuscular Hgb 33.1 pg (27.0-32.0); Mean Corpuscular Volume 106.8 fL (80-94); Mean Platelet Vol. 9.8 fl (6.2-12.0); Monocyte# 0.37 X10^3/uL; Monocyte% 14.5 % (0-10); NRBC Flagged by Analyzer 0.8 % (0-5); Neutrophil # 1.64 X10^3/uL (2.7-7.7); Neutrophil % 64.3 % (47-70); POSITIVE COUNT YES; POSITIVE DIFFERENTIAL YES; Platelet Count 61 K/mm3 (150-450); RBC Distribution Width CV 16.2 % (11.6-14.6); RBC Distribution Width SD 62.1 fl (35.1-43.9); Red Blood Count 2.81 M/mm3 (4.6-6.2); White Blood Count 2.6 K/mm3 (4.4-11.0)
[2022-03-11 06:39] LABS: ALB/GLOB Ratio 0.8 RATIO (0.9-2.4); AST(SGOT) 29 U/L (15-37); Alanine Aminotransfer ALT/SGPT 7 U/L (16-61); Albumin, Serum 2.4 g/dL (3.2-5.0); Alkaline Phosphatase 69 U/L (45-117); Anion Gap 4 (5-15); BUN 58 mg/dL (7-18); BUN/Creat Ratio 25.4 RATIO (10-20); Calcium,Total 7.8 mg/dL (8.5-10.1); Chloride 101 mmol/L (98-107); Creatinine, Serum 2.28 mg/dL (0.70-1.30); EST Glomerular Filtration Rate 30 mL/min (>60); Est Glom Filt Rate - Afr Amer 36 mL/min (>60); Estimated Creatinine Clearance 27.57 ml/min; Glucose 184 mg/dL (74-106); Potassium 3.4 mmol/L (3.5-5.1); Protein, Total 5.4 g/dL (6.4-8.2); Sodium Level 141 mmol/L (136-145)
[2022-03-11 06:45] LABS: Bedside Glucose 182 mg/dL (74-106)
[2022-03-11 06:51] LABS: Differential Indicated SCAN CRITERIA MET
[2022-03-11 07:00] LABS: Anisocytosis 1+; Macrocytosis 2+; Platelet Estimate MOD DEC (ADEQ)
--- NOTE | 2022-03-11 09:11 | PCM.PN.HOSP ---
Subjective Subjective Follow-up PRUDENCE Patient is a 76-year-old male with multiple comorbidities admitted with progressive shortness of breath. Was diagnosed with new onset pleural effusion and ascites secondary to cirrhosis of the liver Objective Data Objective Data Vital Signs: Vital Signs Temp Pulse Resp BP Pulse Ox O2 Del Method O2 Flow Rate 98.0 F 90 16 131/55 H 98 Nasal Cannula 2 03/11/22 03:00 03/11/22 03:00 03/11/22 03:00 03/11/22 03:00 03/11/22 03:00 03/11/22 08:10 03/11/22 08:10 FiO2 92 03/10/22 07:48 Oxygen Flow Rate (L/min) 2 Oxygen Delivery Method [2] Bi-pap Oxygen Delivery Method [1 ( Bi-pap Initial Baseline)] Oxygen Delivery Method Nasal Cannula Weight: 94.1 kg Body Mass Index (BMI) 29.7 Intake & Output: Intake and Output for Last 24 Hours 03/09/22 03/10/22 03/11/22 23:59 23:59 23:59 Intake Total 612 / 612 1000 / 1000 Output Total 1170 / 1170 750 / 1600 1300 / 1300 Balance -558 / -558 250 / -600 -1300 / -1300 Lab / Micro Data Result Diagrams: 03/11/22 05:57 03/11/22 05:57 Labs: Laboratory Results - last 24 hr 03/10/22 11:16: POC Glucose 152 H 03/10/22 16:21: POC Glucose 144 H 03/10/22 23:13: POC Glucose 150 H 03/11/22 05:57: WBC 2.6 L, RBC 2.81 L, Hgb 9.3 L, Hct 30.0 L, MCV 106.8 H, MCH 33.1 H, MCHC 31.0 L, RDW Std Deviation 62.1 H, RDW Coeff of Jean Claude 16.2 H, Plt Count 61 L, MPV 9.8, Immature Gran % (Auto) 0.800, Neut % (Auto) 64.3, Lymph % (Auto) 17.3 L, [place] % (Auto) 14.5 H, Eos % (Auto) 2.7, Baso % (Auto) 0.4, Absolute Neuts (auto) 1.6 L, Absolute Lymphs (auto) 0.44 L, Nucleated RBC % 0.8, Diff Path Review May foll, Platelet Estimate MOD DEC, Anisocytosis 1+, Macrocytosis 2+ 03/11/22 05:57: Sodium 141, Potassium 3.4 L, Chloride 101, Carbon Dioxide 36.0 H, Anion Gap 4 L, BUN 58 H, Creatinine 2.28 H, Estim Creat Clear Calc 27.57, Est GFR (MDRD) Af Amer 36 L, Est GFR (MDRD) Non-Af 30 L, BUN/Creatinine Ratio 25.4 H, Glucose 184 H, Calcium 7.8 L, Total Bilirubin 0.90, AST 29, ALT 7 L, Alkaline Phosphatase 69, Total Protein 5.4 L, Albumin 2.4 L, Globulin 3.0, Albumin/Globulin Ratio 0.8 L 03/11/22 05:58: POC Glucose 182 H Micro: Microbiology 03/06/22 18:45 Urine Catheter - Catheter Urine Culture - Final Aerococcus viridans. 03/06/22 17:55 Blood Culture (Wb) - Anticubital Right Blood Culture - Preliminary No growth in 48 hours. 03/06/22 17:10 Blood Culture (Wb) - Anticubital Left Blood Culture - Preliminary No growth in 48 hours. Physical Exam Narrative GENERAL: cooperative HEENT: Atraumatic; normocephalic EYES; Anicteric, Normal Conjunctiva NECK; supple, normal thyroid, RESPIRATORY: Diminished to auscultation CARDIOVASCULAR: Regular S1 S2, GI: soft, normoactive bowel sounds, : No Renal angle tenderness; EXTREMITIES: edema, no clubbing, MUSCULOSKELETAL: no muscle wasting NEURO: Awake; no lateralizing signs. SKIN: No Rash PSYCH; Flat affect Assessment & Plan Assessment/Plan (1) Acute and chronic respiratory failure with hypercapnia: PLAN: Plan Patient is a 76-year-old male with multiple comorbidities admitted with progressive shortness of breath and confusion. Was diagnosed with new onset pleural effusion and ascites secondary to cirrhosis of the liver 1. Acute combined respiratory failure secondary to acute fluid overload/right hepatothorax/acute CHF exacerbation, . Managed with treatment of the underlying conditions 2. Acute on chronic congestive heart failure with preserved ejection fraction ? Patient managed with diuretics, strict input and output Daily weight fluid restriction 3. Elevated troponin Secondary to demand ischemia from patient hypoxemia patient seen in consultation by cardiology 4. Acute decompensated cirrhosis of the liver with ascites and hydrothorax with hepatic encephalopathy ? Patient underwent ultrasound-guided paracentesis with almost 7 L of ascitic fluid taken off. Subsequently managed with lactulose and rifaximin 5. Acute hepatic encephalopathy ? Managed with lactulose and rifaximin resolved 6. Esophageal stenosis ? Status post dilation. Patient has been seen in consultation by GI following 7. Upper GI bleed ? Secondary to erosive gastropathy patient underwent EGD which did not show nonbleeding erosive gastropathy, multiple nonbleeding duodenal ulcers, multiple oozing duodenal ulcers status post injection and heater probe treatment. Subsequently placed on Carafate and PPI 8. Acute kidney injury ? Superimposed on chronic kidney disease stage III. She has been seen in consultation by nephrology notes and recommendations reviewed 9. Anemia - Secondary to chronic disorder monitoring H&H and transfuse if patient becomes symptomatic or hemoglobin falls below 7 10. Parkinson's disease ? Patient is on Sinemet did continue 11. DVT prophylaxis ? Bilateral SCDs 12. Physical deconditioning - Requested for PT OT eval and social media assistant to assist with discharge planning Time spent in the patient's overall evaluation,decision-making process, review of diagnostic data, adjustment of management, discussion with other providers, nursing nursing and ancillary staff involved in patient's care documentation, 39-minute Charges/Coding Visit Charges Inpatient E&M: 57635 Subs Hosp L2
[2022-03-11] MEDS: rifAXIMin 550 MG Tablet PO ×2 (09:23→22:48)
[2022-03-11] MEDS: Amox/Clavulanate 500 MG Tablet PO ×2 (09:23→22:47)
[2022-03-11] MEDS: Lactulose 20 GM/30 ML UDC PO ×2 (09:24→22:47)
[2022-03-11] MEDS: Midodrine HCl 5 MG Tablet 10 MG PO ×3 (09:24→16:41)
[2022-03-11] MEDS: Furosemide 40 MG Tablet PO ×2 (09:24→18:39)
[2022-03-11] MEDS: Empagliflozin 10 MG Tablet PO (09:24)
[2022-03-11] MEDS: Pantoprazole Sodium 40 MG Tablet PO ×2 (09:24→22:48)
[2022-03-11] MEDS: Menthol/Lanolin/Calamine/Znox 113 GM Tube 1 APPLIC TOPICAL ×2 (09:25→22:49)
--- NOTE | 2022-03-11 11:11 | CASEMGMT ---
Social Work SW checked room, daughter not present. SW called daughter, message left to call SW back in regard to discharge plan. CONNER Troy
[2022-03-11 11:55] LABS: Bedside Glucose 183 mg/dL (74-106)
--- NOTE | 2022-03-11 12:50 | PN.CARD_ITS ---
Subjective Subjective The patient appears to be somewhat more awake and alert today. He denies any acute chest discomfort or acute respiratory related symptoms. Objective Data Vital Signs: Vital Signs Temp Pulse Resp BP Pulse Ox O2 Del Method O2 Flow Rate 97.8 F 82 17 106/48 L 94 Nasal Cannula 2 03/11/22 09:17 03/11/22 09:17 03/11/22 09:17 03/11/22 09:17 03/11/22 09:17 03/11/22 09:17 03/11/22 09:17 FiO2 92 03/10/22 07:48 Oxygen Flow Rate (L/min) 2 Oxygen Delivery Method [2] Bi-pap Oxygen Delivery Method [1 ( Bi-pap Initial Baseline)] Oxygen Delivery Method Nasal Cannula Weight: 207 lb 7.28 oz Body Mass Index (BMI) 29.7 Intake & Output: Intake and Output for Last 24 Hours 03/09/22 03/10/22 03/11/22 23:59 23:59 23:59 Intake Total 612 / 612 1000 / 1000 Output Total 1170 / 1170 750 / 1600 1300 / 1300 Balance -558 / -558 250 / -600 -1300 / -1300 Lab / Micro Data Result Diagrams: 03/11/22 05:57 03/11/22 05:57 Labs: Laboratory Results - last 24 hr 03/10/22 16:21: POC Glucose 144 H 03/10/22 23:13: POC Glucose 150 H 03/11/22 05:57: WBC 2.6 L, RBC 2.81 L, Hgb 9.3 L, Hct 30.0 L, MCV 106.8 H, MCH 33.1 H, MCHC 31.0 L, RDW Std Deviation 62.1 H, RDW Coeff of Jean Claude 16.2 H, Plt Count 61 L, MPV 9.8, Immature Gran % (Auto) 0.800, Neut % (Auto) 64.3, Lymph % (Auto) 17.3 L, [place] % (Auto) 14.5 H, Eos % (Auto) 2.7, Baso % (Auto) 0.4, Absolute Neuts (auto) 1.6 L, Absolute Lymphs (auto) 0.44 L, Nucleated RBC % 0.8, Diff Path Review May foll, Platelet Estimate MOD DEC, Anisocytosis 1+, Macrocytosis 2+ 03/11/22 05:57: Sodium 141, Potassium 3.4 L, Chloride 101, Carbon Dioxide 36.0 H , Anion Gap 4 L, BUN 58 H, Creatinine 2.28 H, Estim Creat Clear Calc 27.57, Est GFR (MDRD) Af Amer 36 L, Est GFR (MDRD) Non-Af 30 L, BUN/Creatinine Ratio 25.4 H , Glucose 184 H, Calcium 7.8 L, Total Bilirubin 0.90, AST 29, ALT 7 L, Alkaline Phosphatase 69, Total Protein 5.4 L, Albumin 2.4 L, Globulin 3.0, Albumin/Globulin Ratio 0.8 L 03/11/22 05:58: POC Glucose 182 H 03/11/22 11:26: POC Glucose 183 H Micro: Microbiology 03/06/22 18:45 Urine Catheter - Catheter Urine Culture - Final Aerococcus viridans. Cardiology Labs/Tests 03/11/22 05:57: WBC 2.6 L, RBC 2.81 L, Hgb 9.3 L, Hct 30.0 L, MCV 106.8 H, MCH 33.1 H, MCHC 31.0 L, Plt Count 61 L, MPV 9.8, Immature Gran % (Auto) 0.800, Neut % (Auto) 64.3, Lymph % (Auto) 17.3 L, [place] % (Auto) 14.5 H, Eos % (Auto) 2.7, Baso % (Auto) 0.4, Absolute Neuts (auto) 1.6 L, Nucleated RBC % 0.8 03/11/22 05:57: Sodium 141, Potassium 3.4 L, Chloride 101, Carbon Dioxide 36.0 H , Anion Gap 4 L, BUN 58 H, Creatinine 2.28 H, Est GFR (MDRD) Af Amer 36 L, Est GFR (MDRD) Non-Af 30 L, BUN/Creatinine Ratio 25.4 H, Glucose 184 H, Calcium 7.8 L, Total Bilirubin 0.90 Rhythm: Sinus rhythm with brief episodes appearing compatible with some underly ing ectopic atrial rhythm/tachycardia Physical Exam Const alert Orientation / Consciousness: awake HEENT normocephalic, head/scalp atraumatic and hearing grossly normal bilaterally Eyes PERRL, EOMs intact bilaterally, conjunctivae normal and no scleral icterus Neck full ROM, supple and no JVD Resp Auscultation: diminished lung sounds right lower Cardio Rhythm: regular rhythm and abnormal rhythm ectopic beats Heart Sounds: S1 normal, S2 normal and other GI normal to inspection, nondistended, normoactive bowel sounds, soft to palpation and non-tender Extremity General Extremity: edema bilateral lower extremity Details: moderate Psych Memory / Cognition: cognition grossly intact Assessment & Plan Assessment/Plan (1) Elevated troponin: PLAN: The patient is found to have elevated high-sensitivity troponin I levels. At the present time the concern is this is a type II event brought out by his underlying pulmonary disease process and profound hypoxemia. He has undergone evaluation with a transthoracic echocardiogram. The results have been noted and reviewed. As he appears to take oral intake he may be a candidate for aspirin 81 mg p.o. daily unless otherwise contraindicated. Other agents such as afterload reducing agents in the way of SNOW inhibitor's or ARB's, etc., may also be somewhat challenging based on concerns his renal insufficiency. He could continue risk factor modification/medical therapy with statins unless otherwise contraindicated from a gastroenterology standpoint. He does not appear to be an ideal candidate for additional cardiovascular diagnostic studies at this time. Thus he will continue conservative medical management. (2) Heart failure: PLAN: The patient presents with findings concerning for underlying CHF. Based upon the patient's transthoracic echocardiogram it appears his overall LV systolic function is preserved. There is concern that his right ventricle is dilated and globally dysfunctional. This may represent his underlying pulmonary disease process and cor pulmonale and right heart failure leading to his examination findings/objective findings, etc. Thus he needs continued medical management with diuretic support and pulmonary support. (3) Pleural effusion: PLAN: He does have a right-sided pleural effusion. It appears based upon his follow-up chest x-ray that this may be somewhat less prominent than his original chest x-ray. At the present time this does need to be followed. Hopefully in the future he can have a upright PA and lateral chest x-ray to further evaluate his pleural effusion status and whether or not he needs anything above and beyond diuretic therapy such as a thoracentesis. (4) Ascites: PLAN: He does have ascites. He underwent an ultrasound-guided paracentesis yesterday. According to the report 6850 L of tiffany-colored fluid was removed with a sample sent to pathology for further evaluation. He will continue GI evaluation. (5) Cirrhosis: PLAN: His CT scan reports cirrhosis. There is a possibility that if this is not cardiogenic in etiology and perhaps cirrhosis is the etiology for his volume overload, etc. He will continue evaluation care per GI. (6) Colitis: PLAN: Based upon his CT scan appears there is concern of colitis. Again this will have to be taken into consideration with his overall evaluation and care and need for additional input from other specialties. (7) Acute and chronic respiratory failure with hypercapnia: PLAN: He is currently out of the ICU now on the PCU. He will continue O2 support as needed and deemed appropriate by pulmonology/critical care medicine, etc. (8) HLD (hyperlipidemia): PLAN: His lipid labs can be evaluated. He can be considered for medical therapy as deemed appropriate. (9) Hypertension: PLAN: His blood pressures have improved somewhat. Hopefully this will allow room for medication adjustment as needed. (10) Acute renal insufficiency: PLAN: He does have an element of renal insufficiency. This may be related to concerns of heart failure but also may be related to noncardiac etiologies. At the moment he is being monitored. He is continuing medical management which does include his oral diuretic therapy at this time. (11) Thrombocytopenia: PLAN: It appears he also has a history of thrombocytopenia. Its unclear as to whether or not he has an underlying primary hematologic issue versus this being related to his noncardiac/other comorbidities. This does need to be taken into consideration with respect to his ability to be on antiplatelet therapy and anticoagulant therapy and undergo invasive procedure s. (12) Parkinsons disease: PLAN: He has a history of Parkinson's disease. He has been on medical therapy for this. Addt'l Comments Overall, at the present time, he will continue to be followed as needed. He will continue conservative medical management from a cardiovascular standpoint. Comment: Time spent the patient's overall evaluation, examination, review of medical records, documentation, discussion with the PCU staff: 37 minutes Procedure Criteria Type of Procedure Procedure Type: Elective Elective Risks - COVID COVID Risk Discussion: The surgeon/proceduralist and patient have discussed in detail the risk of exposure to and/or potential harm posed by the COVID-19 virus with having a surgery/procedure at this time versus the risk of delaying the surgery/procedure. It is not possible to know either the risk of delaying the surgery or procedure or chance of getting an infection with perfect accuracy, but a joint decision was made between the patient and the surgeon/proceduralist to proceed at this time with the scheduled surgery/procedure as indicated on the consent form.
[2022-03-11 13:07] LABS: Cytoplasmic Ab (C-ANCA) <1:20 titer (Neg:<1:20)
--- NOTE | 2022-03-11 14:09 | PN.RENAL_ITS ---
Subjective Subjective No new complaints Objective Data Objective Data Vital Signs: Vital Signs Temp Pulse Resp BP Pulse Ox O2 Del Method O2 Flow Rate 97.8 F 82 17 106/48 L 94 Nasal Cannula 2 03/11/22 09:17 03/11/22 09:17 03/11/22 09:17 03/11/22 09:17 03/11/22 09:17 03/11/22 09:17 03/11/22 09:17 FiO2 92 03/10/22 07:48 Oxygen Flow Rate (L/min) 2 Oxygen Delivery Method [2] Bi-pap Oxygen Delivery Method [1 ( Bi-pap Initial Baseline)] Oxygen Delivery Method Nasal Cannula Weight: 94.1 kg Body Mass Index (BMI) 29.7 Intake & Output: Intake and Output for Last 24 Hours 03/09/22 03/10/22 03/11/22 23:59 23:59 23:59 Intake Total 612 / 612 1000 / 1000 Output Total 1170 / 1170 750 / 1600 1300 / 1300 Balance -558 / -558 250 / -600 -1300 / -1300 Lab / Micro Data Result Diagrams: 03/11/22 05:57 03/11/22 05:57 Labs: Laboratory Results - last 24 hr 03/10/22 16:21: POC Glucose 144 H 03/10/22 23:13: POC Glucose 150 H 03/11/22 05:57: WBC 2.6 L, RBC 2.81 L, Hgb 9.3 L, Hct 30.0 L, MCV 106.8 H, MCH 33.1 H, MCHC 31.0 L, RDW Std Deviation 62.1 H, RDW Coeff of Jean Claude 16.2 H, Plt Count 61 L, MPV 9.8, Immature Gran % (Auto) 0.800, Neut % (Auto) 64.3, Lymph % (Auto) 17.3 L, [place] % (Auto) 14.5 H, Eos % (Auto) 2.7, Baso % (Auto) 0.4, Absolute Neuts (auto) 1.6 L, Absolute Lymphs (auto) 0.44 L, Nucleated RBC % 0.8, Diff Path Review May , Platelet Estimate MOD DEC, Anisocytosis 1+, Macrocytosis 2+ 03/11/22 05:57: Sodium 141, Potassium 3.4 L, Chloride 101, Carbon Dioxide 36.0 H , Anion Gap 4 L, BUN 58 H, Creatinine 2.28 H, Estim Creat Clear Calc 27.57, Est GFR (MDRD) Af Amer 36 L, Est GFR (MDRD) Non-Af 30 L, BUN/Creatinine Ratio 25.4 H , Glucose 184 H, Calcium 7.8 L, Total Bilirubin 0.90, AST 29, ALT 7 L, Alkaline Phosphatase 69, Total Protein 5.4 L, Albumin 2.4 L, Globulin 3.0, Albumin/Globulin Ratio 0.8 L 03/11/22 05:58: POC Glucose 182 H 03/11/22 11:26: POC Glucose 183 H Micro: Microbiology 03/06/22 18:45 Urine Catheter - Catheter Urine Culture - Final Aerococcus viridans. 03/06/22 17:55 Blood Culture (Wb) - Anticubital Right Blood Culture - Preliminary No growth in 48 hours. 03/06/22 17:10 Blood Culture (Wb) - Anticubital Left Blood Culture - Preliminary No growth in 48 hours. Physical Exam Narrative General: Alert. NAD. HEENT: Normocephalic, atraumatic. Mucous membrane moist. PERRLA, EOMI. Hearing is intact. Speech is somewhat slurred. Neck: Supple, no JVD, no bruit. Trachea is midline. No lymphadenopathy. Cardiovascular: Normal S1, S2. No rubs, murmurs, or gallops. Lungs: Clear to auscultation anteriorly. Decreased breath sound at bases bilaterally posteriorly. Abdomen: Slightly distended, normal bowel sound, soft, nontender, no guarding or rebound. Extremities: No clubbing, cyanosis, or edema. Musculoskeletal: Full passive range of motion, no joint swelling. Skin: Warm and dry, no rash. Psychiatric: Normal mood and affect. Neurologic: No focal neurologic deficits. Assessment & Plan Assessment/Plan (1) PRUDENCE (acute kidney injury): (2) Cirrhosis: (3) Acute and chronic respiratory failure with hypercapnia: PLAN: Plan Impression/Plan: The patient is a 76-year-old man with past history of type 2 diabetes mellitus, hypertension, COPD, Parkinson's disease, and hypothyroidism. The patient was admitted on 03/06/2022 for acute and chronic hypoxic and hypercapnic respiratory failure. He was found to have a new onset right pleural effusion along with ascites and liver cirrhosis. Nephrology is following for acute kidney injury. Acute kidney injury. Baseline renal function has been relatively normal. His serum creatinine was 1.09 mg/dL with estimated GFR of 69 mL/min prior to admission on 02/20/2022. Came in with a creatinine of 2.3 on 03/06/2022., has fluctuated about the same number. Today's creatinine is down to 2.3, slightly better from 2.6 yesterday. Urine analysis shows some protein, cells. Serologies have been sent and are pending. CT abdomen without any hydronephrosis. Other ongoing events include -newly diagnosed cirrhosis as seen on CT abdomen. Not sure if this is related to cardiac issues or a primary problem. Gastroenterology is following. Endoscopy with multiple ulcers. Congestive heart failure versus? Hepatic hydrothorax. Currently on Lasix 40 mg twice a day and sglt2 inhibitors. Clinically appears on the dry side to me. Continue same medications for now. If creatinine worsens, we will probably have to cut back on the Lasix.
--- NOTE | 2022-03-11 14:54 | CHAPLAIN ---
Type of Pastoral Visit _x__ Initial Visit ___ Follow-up Visit ___ On-call Visit ___ General Patient Visit ___ Spiritual Assessment ___ Family Conference ___ Bereavement ___ Rapid Response ___ Code Blue ___ Other (describe below) Pastoral Care Referral From _x__ Patient ___ Family ___ Nurse ___ Physician ___ Hardware Trainer ___ Baling Machine Tender ___ Other (describe below) Sacrament/Intervention _x__ Active listening ___ Anointing ___ Uatsdin ___ Bereavement ___ Communion _x__ Vesta exploration ___ _x__ Life review _x__ Prayer ___ Reconciliation ___ Sacrament of Sick _x__ Supportive presence ___ Wedding ___ Other (describe below) Pastoral Comments COMMODITIES REQUIREMENTS ANALYST notified this inventory control assistant that the patient was requesting a visit with the inventory control assistant; pt welcomes visit and just talks about life and his enjoyment of [employer] music, 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
[2022-03-11 15:07] LABS: Anti-Centromere B Ab <0.2 AI (0.0-0.9); Anti-Chromatin <0.2 AI (0.0-0.9); Anti-Jo <0.2 AI (0.0-0.9); Anti-Scleroderma-70 AB <0.2 AI (0.0-0.9); RNP Ab 0.2 AI (0.0-0.9); SJOGREN'S Anti-SS-A test < 0.2 AI (0.0-0.9); SJOGREN'S Anti-SS-B test < 0.2 AI (0.0-0.9); Smith Ab <0.2 AI (0.0-0.9)
--- NOTE | 2022-03-11 15:23 | CASEMGMT ---
SW received a return call from patient's daughter Maryanne. SW explained that therapy is recommending [facility]. SW explained Medicare SNF coverage. SW also explained that SW will leave a list of facilities in patient's room. SW explained that they need to pick at least 3 facilities they would like and SW will make the referrals. SW wrote SW's name and number on the list. Maryanne verbalized understanding. Plan: SNF pending patient and family choices and accepting facility. Teresa Brady [employer]
[2022-03-11 17:05] LABS: Bedside Glucose 142 mg/dL (74-106)
[2022-03-11 18:36] LABS: Anti-Mitochondrial AB <20.0 Units (0.0-20.0); Anti-dsDNA Ab <1 IU/mL (0-9)
[2022-03-11 18:39] LABS: Perinuclear Ab (P-ANCA) <1:20 titer (Neg:<1:20)
[2022-03-11 22:07] LABS: Anti-Smooth Muscle ABS 8 Units (0-19); Copper, Serum or Plasma 96 ug/dL (69-132)
[2022-03-11] MEDS: Pramipexole Di-HCl 1 MG Tablet PO (22:48)
[2022-03-11] MEDS: Tamsulosin HCl 0.4 MG Capsule 0.8 MG PO (22:48)
[2022-03-11 23:31] LABS: Bedside Glucose 186 mg/dL (74-106)
--- NOTE | 2022-03-11 23:38 | CPS ---
pt did not want to wear
[2022-03-12] VITALS (7 sets, daily range): BP systolic 108–135; BP diastolic 44–67; PULSE 69–93; RESP 17–18; TEMP 36.3–36.9; O2SAT 92–96
[2022-03-12 04:17] LABS: Absolute Lymphocyte Count 0.49 X10^3/uL (0.83-4.51); Absolute Neutrophil Count 2.1 X10^3/uL (2.0-7.7); Basophil# 0.01 X10^3/uL; Basophil% 0.3 % (0-1); Eosinophil# 0.07 X10^3/uL; Eosinophils% 2.3 % (0-5); Hematocrit 29.6 % (40-54); Lymphocyte # 0.49 X10^3/ul (0.83-4.51); Lymphocyte % 16.1 % (19-41); Mean Corp Hgb Conc 30.4 g/dL (32-36); Mean Corpuscular Hgb 32.8 pg (27.0-32.0); Mean Platelet Vol. 10.1 fl (6.2-12.0); Monocyte# 0.35 X10^3/uL; Monocyte% 11.5 % (0-10); NRBC Flagged by Analyzer 0 % (0-5); Neutrophil % 69.1 % (47-70); POSITIVE COUNT YES; POSITIVE DIFFERENTIAL YES; Platelet Count 60 K/mm3 (150-450); RBC Distribution Width CV 16.5 % (11.6-14.6); RBC Distribution Width SD 63.8 fl (35.1-43.9); Red Blood Count 2.74 M/mm3 (4.6-6.2)
[2022-03-12 04:18] LABS: Differential Indicated SCAN CRITERIA MET
[2022-03-12 04:43] LABS: ALB/GLOB Ratio 0.8 RATIO (0.9-2.4); AST(SGOT) 24 U/L (15-37); Alanine Aminotransfer ALT/SGPT 9 U/L (16-61); Albumin, Serum 2.4 g/dL (3.2-5.0); Alkaline Phosphatase 68 U/L (45-117); Anion Gap 3 (5-15); BUN 54 mg/dL (7-18); Calcium,Total 7.7 mg/dL (8.5-10.1); Chloride 103 mmol/L (98-107); Creatinine, Serum 2.16 mg/dL (0.70-1.30); EST Glomerular Filtration Rate 32 mL/min (>60); Est Glom Filt Rate - Afr Amer 38 mL/min (>60); Globulin 3.1 g/dL (2.2-4.2); Glucose 204 mg/dL (74-106); Potassium 3.5 mmol/L (3.5-5.1); Protein, Total 5.5 g/dL (6.4-8.2); Sodium Level 143 mmol/L (136-145)
[2022-03-12 04:47] LABS: Anisocytosis 1+; Macrocytosis 2+; Platelet Estimate MOD DEC (ADEQ)
[2022-03-12 04:48] LABS: Toxic Granulation RARE
[2022-03-12] MEDS: Insulin Lispro 100 UNIT/ML INSULN.PEN SC ×3 (06:01→17:54)
[2022-03-12] MEDS: Sucralfate 1 GM Tablet PO ×3 (06:02→16:36)
[2022-03-12] MEDS: Carbidopa/Levodopa 25/100 Tablet PO ×3 (06:02→16:30)
[2022-03-12] MEDS: Levothyroxine 125 MCG Tablet PO (06:02)
[2022-03-12 06:35] LABS: Bedside Glucose 216 mg/dL (74-106)
[2022-03-12] MEDS: Midodrine HCl 5 MG Tablet 10 MG PO ×3 (08:40→16:31)
--- NOTE | 2022-03-12 09:10 | PCM.PN.CARD ---
Subjective Subjective The patient appears to be resting comfortably this morning in the supine position. He has no new acute cardiovascular complaints. Objective Data Vital Signs: Vital Signs Temp Pulse Resp BP Pulse Ox O2 Del Method O2 Flow Rate 97.4 F L 92 18 112/60 94 Nasal Cannula 2 03/12/22 04:45 03/12/22 04:45 03/12/22 04:45 03/12/22 04:45 03/12/22 04:45 03/12/22 04:45 03/12/22 04:45 FiO2 92 03/10/22 07:48 Oxygen Flow Rate (L/min) 2 Oxygen Delivery Method [2] Bi-pap Oxygen Delivery Method [1 ( Bi-pap Initial Baseline)] Oxygen Delivery Method Nasal Cannula Weight: 209 lb 3.499 oz Body Mass Index (BMI) 29.7 Intake & Output: Intake and Output for Last 24 Hours 03/10/22 03/11/22 03/12/22 23:59 23:59 23:59 Intake Total 1000 / 1000 460 / 460 Output Total 750 / 1600 2100 / 2100 300 / 300 Balance 250 / -600 -1640 / -1640 -300 / -300 Lab / Micro Data Result Diagrams: 03/12/22 03:40 03/12/22 03:40 Labs: Laboratory Results - last 24 hr 03/07/22 17:30: CONCEPCION-1 Antibody <0.2, SS-A/Ro IgG Antibody < 0.2, SS-B/La IgG Antibody < 0.2, Sm (Montalvo) Antibody <0.2, INFORMATICS APPLICATION ANALYST Antibody 0.2, Scl-70 Scleroderma Ab <0.2, Double Strand DNA Ab <1, Centromere B Antibody <0.2, Anti-Mitochondrial Ab <20.0 03/07/22 17:30: Serum Copper 96, Anti-Smooth Muscle Ab 8 03/07/22 17:30: c-ANCA Antibody <1:20, Atypical p-ANCA <1:20, p-ANCA Antibody <1:20 03/11/22 11:26: POC Glucose 183 H 03/11/22 16:45: POC Glucose 142 H 03/11/22 22:43: POC Glucose 186 H 03/12/22 03:40: WBC 3.0 L, RBC 2.74 L, Hgb 9.0 L, Hct 29.6 L, MCV 108.0 H, MCH 32.8 H, MCHC 30.4 L, RDW Std Deviation 63.8 H, RDW Coeff of Jean Claude 16.5 H, Plt Count 60 L, MPV 10.1, Immature Gran % (Auto) 0.700, Neut % (Auto) 69.1, Lymph % (Auto) 16.1 L, [place] % (Auto) 11.5 H, Eos % (Auto) 2.3, Baso % (Auto) 0.3, Absolute Neuts (auto) 2.1, Absolute Lymphs (auto) 0.49 L, Nucleated RBC % 0, Diff Path Review May foll, Toxic Granulation RARE, Platelet Estimate MOD DEC, Anisocytosis 1+, Macrocytosis 2+ 03/12/22 03:40: Sodium 143, Potassium 3.5, Chloride 103, Carbon Dioxide 37.0 H, Anion Gap 3 L, BUN 54 H, Creatinine 2.16 H, Estim Creat Clear Calc 29.10, Est GFR (MDRD) Af Amer 38 L, Est GFR (MDRD) Non-Af 32 L, BUN/Creatinine Ratio 25.0 H, Glucose 204 H, Calcium 7.7 L, Total Bilirubin 0.70, AST 24, ALT 9 L, Alkaline Phosphatase 68, Total Protein 5.5 L, Albumin 2.4 L, Globulin 3.1, Albumin/Globulin Ratio 0.8 L 03/12/22 05:55: POC Glucose 216 H Micro: Microbiology 03/06/22 17:55 Blood Culture (Wb) - Anticubital Right Blood Culture - Final No growth in 5 days. 03/06/22 17:10 Blood Culture (Wb) - Anticubital Left Blood Culture - Final No growth in 5 days. Cardiology Labs/Tests 03/12/22 03:40: WBC 3.0 L, RBC 2.74 L, Hgb 9.0 L, Hct 29.6 L, MCV 108.0 H, MCH 32.8 H, MCHC 30.4 L, Plt Count 60 L, MPV 10.1, Immature Gran % (Auto) 0.700, Neut % (Auto) 69.1, Lymph % (Auto) 16.1 L, [place] % (Auto) 11.5 H, Eos % (Auto) 2.3, Baso % (Auto) 0.3, Absolute Neuts (auto) 2.1, Nucleated RBC % 0 03/12/22 03:40: Sodium 143, Potassium 3.5, Chloride 103, Carbon Dioxide 37.0 H, Anion Gap 3 L, BUN 54 H, Creatinine 2.16 H, Est GFR (MDRD) Af Amer 38 L, Est GFR (MDRD) Non-Af 32 L, BUN/Creatinine Ratio 25.0 H, Glucose 204 H, Calcium 7.7 L, Total Bilirubin 0.70 Rhythm: Sinus rhythm Physical Exam Const alert Orientation / Consciousness: awake HEENT normocephalic, head/scalp atraumatic and hearing grossly normal bilaterally Eyes PERRL, EOMs intact bilaterally, conjunctivae normal and no scleral icterus Neck full ROM, supple and no JVD Resp Auscultation: diminished lung sounds right lower Cardio Rhythm: regular rhythm Heart Sounds: S1 normal, S2 normal and other GI normal to inspection, nondistended, normoactive bowel sounds, soft to palpation and non-tender Extremity General Extremity: edema bilateral lower extremity Details: moderate Psych Memory / Cognition: cognition grossly intact Assessment & Plan Assessment/Plan (1) Elevated troponin: PLAN: The patient is found to have elevated high-sensitivity troponin I levels. At the present time the concern is this is a type II event brought out by his underlying pulmonary disease process and profound hypoxemia. He has undergone evaluation with a transthoracic echocardiogram. The results have been noted and reviewed. As he appears to take oral intake he may be a candidate for aspirin 81 mg p.o. daily unless otherwise contraindicated-with respect to his history of thrombocytopenia. Other agents such as afterload reducing agents in the way of SNOW inhibitor's or ARB's, etc., may also be somewhat challenging based on concerns his renal insufficiency. He could continue risk factor modification/medical therapy with statins unless otherwise contraindicated from a gastroenterology standpoint. He does not appear to be an ideal candidate for additional cardiovascular diagnostic studies at this time. Thus he will continue conservative medical management. (2) Heart failure: PLAN: The patient presents with findings concerning for underlying CHF. Based upon the patient's transthoracic echocardiogram it appears his overall LV systolic function is preserved. There is concern that his right ventricle is dilated and globally dysfunctional. This may represent his underlying pulmonary disease process and cor pulmonale and right heart failure leading to his examination findings/objective findings, etc. Thus he needs continued medical management with diuretic support and pulmonary support. (3) Pleural effusion: PLAN: He does have a right-sided pleural effusion. It appears based upon his follow-up chest x-ray that this may be somewhat less prominent than his original chest x-ray. (4) Ascites: PLAN: He does have ascites. He underwent an ultrasound-guided paracentesis yesterday. According to the report 6850 L of tiffany-colored fluid was removed with a sample sent to pathology for further evaluation. He will continue GI evaluation. (5) Cirrhosis: PLAN: His CT scan reports cirrhosis. There is a possibility that if this is not cardiogenic in etiology and perhaps cirrhosis is the etiology for his volume overload, etc. He will continue evaluation care per GI. (6) Colitis: PLAN: Based upon his CT scan appears there is concern of colitis. Again this will have to be taken into consideration with his overall evaluation and care and need for additional input from other specialties. (7) Acute and chronic respiratory failure with hypercapnia: PLAN: He is currently out of the ICU now on the PCU. He will continue O2 support as needed and deemed appropriate by pulmonology/critical care medicine, etc. (8) HLD (hyperlipidemia): PLAN: His lipid labs can be evaluated. He can be considered for medical therapy as deemed appropriate. His GI history has to be taken into consideration with respect to these medications. (9) Hypertension: PLAN: His blood pressures have improved somewhat. Hopefully this will allow room for medication adjustment as needed. (10) Acute renal insufficiency: PLAN: He does have an element of renal insufficiency. This may be related to concerns of heart failure but also may be related to noncardiac etiologies. At the moment he is being monitored. He is continuing medical management which does include his oral diuretic therapy at this time. (11) Thrombocytopenia: PLAN: It appears he also has a history of thrombocytopenia. Its unclear as to whether or not he has an underlying primary hematologic issue versus this being related to his noncardiac/other comorbidities. This does need to be taken into consideration with respect to his ability to be on antiplatelet therapy and anticoagulant therapy and undergo invasive procedures. (12) Parkinsons disease: PLAN: He has a history of Parkinson's disease. He has been on medical therapy for this. Addt'l Comments Overall, from a cardiovascular standpoint, the patient appears without new acute cardiovascular symptoms. He appears to be resting comfortably on his current medication which includes his oral diuretic therapy. It appears based upon the patient's multiple comorbidities the plan is for continued conservative medical management and eventual transfer to a residential facility. At the present time there are no additional cardiovascular diagnostic studies/intervention planned for the patient. The patient can be reassessed as needed. Thank you for allowing me to participate in the care of your patient. Please don't hesitate to call if any issues arise. This note was generated using a voice recognition system and there may be incorrect words, spelling or punctuation that were not noted when reviewing the office note prior to saving. Comment: Time spent in the patient's evaluation, examination, review of medical records, documentation, and discussion with the PCU staff: 37 minutes Procedure Criteria Type of Procedure Procedure Type: Elective Elective Risks - COVID COVID Risk Discussion: The surgeon/proceduralist and patient have discussed in detail the risk of exposure to and/or potential harm posed by the COVID-19 virus with having a surgery/procedure at this time versus the risk of delaying the surgery/procedure. It is not possible to know either the risk of delaying the surgery or procedure or chance of getting an infection with perfect accuracy, but a joint decision was made between the patient and the surgeon/proceduralist to proceed at this time with the scheduled surgery/procedure as indicated on the consent form.
--- NOTE | 2022-03-12 09:23 | PN.HOSP_ITS ---
Subjective Subjective Follow-up acute hypoxia Patient seen remains relatively stable. Patient did agree to being discharged to long-term facility. Objective Data Objective Data Vital Signs: Vital Signs Temp Pulse Resp BP Pulse Ox O2 Del Method O2 Flow Rate 97.4 F L 92 18 112/60 94 Nasal Cannula 2 03/12/22 04:45 03/12/22 04:45 03/12/22 04:45 03/12/22 04:45 03/12/22 04:45 03/12/22 04:45 03/12/22 04:45 FiO2 92 03/10/22 07:48 Oxygen Flow Rate (L/min) 2 Oxygen Delivery Method [2] Bi-pap Oxygen Delivery Method [1 ( Bi-pap Initial Baseline)] Oxygen Delivery Method Nasal Cannula Weight: 94.9 kg Body Mass Index (BMI) 29.7 Intake & Output: Intake and Output for Last 24 Hours 03/10/22 03/11/22 03/12/22 23:59 23:59 23:59 Intake Total 1000 / 1000 460 / 460 Output Total 750 / 1600 2100 / 2100 300 / 300 Balance 250 / -600 -1640 / -1640 -300 / -300 Lab / Micro Data Result Diagrams: 03/12/22 03:40 03/12/22 03:40 Labs: Laboratory Results - last 24 hr 03/07/22 17:30: CONCEPCION-1 Antibody <0.2, SS-A/Ro IgG Antibody < 0.2, SS-B/La IgG Antibody < 0.2, Sm (Montalvo) Antibody <0.2, CIRCULATION MAN Antibody 0.2, Scl-70 Scleroderma Ab <0.2, Double Strand DNA Ab <1, Centromere B Antibody <0.2, Anti-Mitochondrial Ab <20.0 03/07/22 17:30: Serum Copper 96, Anti-Smooth Muscle Ab 8 03/07/22 17:30: c-ANCA Antibody <1:20, Atypical p-ANCA <1:20, p-ANCA Antibody <1:20 03/11/22 11:26: POC Glucose 183 H 03/11/22 16:45: POC Glucose 142 H 03/11/22 22:43: POC Glucose 186 H 03/12/22 03:40: WBC 3.0 L, RBC 2.74 L, Hgb 9.0 L, Hct 29.6 L, MCV 108.0 H, MCH 32.8 H, MCHC 30.4 L, RDW Std Deviation 63.8 H, RDW Coeff of Jean Claude 16.5 H, Plt Count 60 L, MPV 10.1, Immature Gran % (Auto) 0.700, Neut % (Auto) 69.1, Lymph % (Auto) 16.1 L, [place] % (Auto) 11.5 H, Eos % (Auto) 2.3, Baso % (Auto) 0.3, Absolute Neuts (auto) 2.1, Absolute Lymphs (auto) 0.49 L, Nucleated RBC % 0, Diff Path Review May foll, Toxic Granulation RARE, Platelet Estimate MOD DEC, Anisocytosis 1+, Macrocytosis 2+ 03/12/22 03:40: Sodium 143, Potassium 3.5, Chloride 103, Carbon Dioxide 37.0 H, Anion Gap 3 L, BUN 54 H, Creatinine 2.16 H, Estim Creat Clear Calc 29.10, Est GFR (MDRD) Af Amer 38 L, Est GFR (MDRD) Non-Af 32 L, BUN/Creatinine Ratio 25.0 H , Glucose 204 H, Calcium 7.7 L, Total Bilirubin 0.70, AST 24, ALT 9 L, Alkaline Phosphatase 68, Total Protein 5.5 L, Albumin 2.4 L, Globulin 3.1, Albumin/Globulin Ratio 0.8 L 03/12/22 05:55: POC Glucose 216 H Micro: Microbiology 03/06/22 17:55 Blood Culture (Wb) - Anticubital Right Blood Culture - Final No growth in 5 days. 03/06/22 17:10 Blood Culture (Wb) - Anticubital Left Blood Culture - Final No growth in 5 days. 03/06/22 18:45 Urine Catheter - Catheter Urine Culture - Final Aerococcus viridans. Physical Exam Narrative GENERAL: cooperative HEENT: Atraumatic; normocephalic EYES; Anicteric, Normal Conjunctiva NECK; supple, normal thyroid, RESPIRATORY: Diminished to auscultation CARDIOVASCULAR: Regular S1 S2, GI: soft, normoactive bowel sounds, : No Renal angle tenderness; EXTREMITIES: edema, no clubbing, MUSCULOSKELETAL: no muscle wasting NEURO: Awake; no lateralizing signs. SKIN: No Rash PSYCH; Flat affect Assessment & Plan Assessment/Plan (1) Acute and chronic respiratory failure with hypercapnia: PLAN: Plan Patient is a 76-year-old male with multiple comorbidities admitted with progressive shortness of breath and confusion. Was diagnosed with new onset pleural effusion and ascites secondary to cirrhosis of the liver 1. Acute combined respiratory failure secondary to acute fluid overload/right hepatothorax/acute CHF exacerbation, . Managed with treatment of the underlying conditions 2. Acute on chronic congestive heart failure with preserved ejection fraction ? Patient managed with diuretics, strict input and output Daily weight fluid restriction 3. Elevated troponin Secondary to demand ischemia from patient hypoxemia patient seen in consultation by cardiology 4. Acute decompensated cirrhosis of the liver with ascites and hydrothorax with hepatic encephalopathy ? Patient underwent ultrasound-guided paracentesis with almost 7 L of ascitic fluid taken off. Subsequently managed with lactulose and rifaximin 5. Acute hepatic encephalopathy ? Managed with lactulose and rifaximin resolved 6. Esophageal stenosis ? Status post dilation. Patient has been seen in consultation by GI following 7. Upper GI bleed ? Secondary to erosive gastropathy patient underwent EGD which did not show nonbleeding erosive gastropathy, multiple nonbleeding duodenal ulcers, multiple oozing duodenal ulcers status post injection and heater probe treatment. Subsequently placed on Carafate and PPI 8. Acute kidney injury ? Superimposed on chronic kidney disease stage III. She has been seen in consultation by nephrology notes and recommendations reviewed 9. Anemia - Secondary to chronic disorder monitoring H&H and transfuse if patient becomes symptomatic or hemoglobin falls below 7 10. Parkinson's disease ? Patient is on Sinemet did continue 11. DVT prophylaxis ? Bilateral SCDs 12. Physical deconditioning - Requested for PT OT eval and social worker delinquency prevention to assist with discharge planning 13. ?Pancytopenia -due to chronic liver disease, monitoring with daily CBCs Time spent in the patient's overall evaluation,decision-making process, review of diagnostic data, adjustment of management, discussion with other providers, nursing nursing and ancillary staff involved in patient's care documentation, 39-minute Charges/Coding Visit Charges Inpatient E&M: 50519 Subs Hosp L2
[2022-03-12] MEDS: Furosemide 40 MG Tablet PO ×2 (09:26→17:58)
[2022-03-12] MEDS: Lactulose 20 GM/30 ML UDC PO (09:26)
[2022-03-12] MEDS: Amox/Clavulanate 500 MG Tablet PO (09:26)
[2022-03-12] MEDS: Empagliflozin 10 MG Tablet PO (09:26)
[2022-03-12] MEDS: rifAXIMin 550 MG Tablet PO (09:27)
[2022-03-12] MEDS: Pantoprazole Sodium 40 MG Tablet PO (09:27)
[2022-03-12] MEDS: Menthol/Lanolin/Calamine/Znox 113 GM Tube 1 APPLIC TOPICAL (09:29)
[2022-03-12 09:31] LABS: Pathologist Review Reviewed
[2022-03-12 09:32] LABS: Pathologist Review Reviewed
[2022-03-12 09:32] LABS: Pathologist Review Reviewed
--- NOTE | 2022-03-12 10:30 | PN.RENAL_ITS ---
Subjective Subjective No new events Objective Data Objective Data Vital Signs: Vital Signs Temp Pulse Resp BP Pulse Ox O2 Del Method O2 Flow Rate 98.2 F 77 18 108/61 92 Nasal Cannula 2 03/12/22 09:33 03/12/22 09:33 03/12/22 09:33 03/12/22 09:33 03/12/22 09:33 03/12/22 10:00 03/12/22 10:00 FiO2 92 03/10/22 07:48 Oxygen Flow Rate (L/min) 2 Oxygen Delivery Method [2] Bi-pap Oxygen Delivery Method [1 ( Bi-pap Initial Baseline)] Oxygen Delivery Method Nasal Cannula Weight: 94.9 kg Body Mass Index (BMI) 29.7 Intake & Output: Intake and Output for Last 24 Hours 03/10/22 03/11/22 03/12/22 23:59 23:59 23:59 Intake Total 1000 / 1000 460 / 460 Output Total 750 / 1600 2100 / 2100 300 / 300 Balance 250 / -600 -1640 / -1640 -300 / -300 Lab / Micro Data Result Diagrams: 03/12/22 03:40 03/12/22 03:40 Labs: Laboratory Results - last 24 hr 03/07/22 17:30: CONCEPCION-1 Antibody <0.2, SS-A/Ro IgG Antibody < 0.2, SS-B/La IgG Antibody < 0.2, Sm (Montalvo) Antibody <0.2, SUGAR CANE PLANTER MACHINE OPERATOR Antibody 0.2, Scl-70 Scleroderma Ab <0.2, Double Strand DNA Ab <1, Centromere B Antibody <0.2, Anti-Mitochondrial Ab <20.0 03/07/22 17:30: Serum Copper 96, Anti-Smooth Muscle Ab 8 03/07/22 17:30: c-ANCA Antibody <1:20, Atypical p-ANCA <1:20, p-ANCA Antibody <1:20 03/09/22 03:35: Diff Path Review Reviewed 03/10/22 05:27: Diff Path Review Reviewed 03/11/22 05:57: Diff Path Review Reviewed 03/11/22 11:26: POC Glucose 183 H 03/11/22 16:45: POC Glucose 142 H 03/11/22 22:43: POC Glucose 186 H 03/12/22 03:40: WBC 3.0 L, RBC 2.74 L, Hgb 9.0 L, Hct 29.6 L, MCV 108.0 H, MCH 32.8 H, MCHC 30.4 L, RDW Std Deviation 63.8 H, RDW Coeff of Jean Claude 16.5 H, Plt Count 60 L, MPV 10.1, Immature Gran % (Auto) 0.700, Neut % (Auto) 69.1, Lymph % (Auto) 16.1 L, [place] % (Auto) 11.5 H, Eos % (Auto) 2.3, Baso % (Auto) 0.3, Absolute Neuts (auto) 2.1, Absolute Lymphs (auto) 0.49 L, Nucleated RBC % 0, Diff Path Review May foll, Toxic Granulation RARE, Platelet Estimate MOD DEC, Anisocytosis 1+, Macrocytosis 2+ 03/12/22 03:40: Sodium 143, Potassium 3.5, Chloride 103, Carbon Dioxide 37.0 H, Anion Gap 3 L, BUN 54 H, Creatinine 2.16 H, Estim Creat Clear Calc 29.10, Est GFR (MDRD) Af Amer 38 L, Est GFR (MDRD) Non-Af 32 L, BUN/Creatinine Ratio 25.0 H , Glucose 204 H, Calcium 7.7 L, Total Bilirubin 0.70, AST 24, ALT 9 L, Alkaline Phosphatase 68, Total Protein 5.5 L, Albumin 2.4 L, Globulin 3.1, Albumin/Globulin Ratio 0.8 L 03/12/22 05:55: POC Glucose 216 H Micro: Microbiology 03/06/22 17:55 Blood Culture (Wb) - Anticubital Right Blood Culture - Final No growth in 5 days. 03/06/22 17:10 Blood Culture (Wb) - Anticubital Left Blood Culture - Final No growth in 5 days. 03/06/22 18:45 Urine Catheter - Catheter Urine Culture - Final Aerococcus viridans. Physical Exam Narrative General: Alert. NAD. HEENT: Normocephalic, atraumatic. Mucous membrane moist. PERRLA, EOMI. Hearing is intact. Speech is somewhat slurred. Neck: Supple, no JVD, no bruit. Trachea is midline. No lymphadenopathy. Cardiovascular: Normal S1, S2. No rubs, murmurs, or gallops. Lungs: Clear to auscultation anteriorly. Decreased breath sound at bases bilaterally posteriorly. Abdomen: Slightly distended, normal bowel sound, soft, nontender, no guarding or rebound. Extremities: No clubbing, cyanosis, or edema. Musculoskeletal: Full passive range of motion, no joint swelling. Skin: Warm and dry, no rash. Psychiatric: Normal mood and affect. Neurologic: No focal neurologic deficits. Assessment & Plan Assessment/Plan (1) PRUDENCE (acute kidney injury): (2) Cirrhosis: (3) Acute and chronic respiratory failure with hypercapnia: PLAN: Plan Impression/Plan: The patient is a 76-year-old man with past history of type 2 diabetes mellitus, hypertension, COPD, Parkinson's disease, and hypothyroidism. The patient was admitted on 03/06/2022 for acute and chronic hypoxic and hypercapnic respiratory failure. He was found to have a new onset right pleural effusion along with ascites and liver cirrhosis. Nephrology is following for acute kidney injury. Acute kidney injury. Baseline renal function has been relatively normal. His serum creatinine was 1.09 mg/dL with estimated GFR of 69 mL/min prior to admission on 02/20/2022. Came in with a creatinine of 2.3 on 03/06/2022., has fluctuated about the same number. Today's creatinine is slightly better Urine analysis shows some protein, cells. Serologies have been sent and are pending. CT abdomen without any hydronephrosis. Other ongoing events include -newly diagnosed cirrhosis as seen on CT abdomen. Not sure if this is related to cardiac issues or a primary problem. Gastroenterology is following. Endoscopy with multiple ulcers. Congestive heart failure versus? Hepatic hydrothorax. Currently on Lasix 40 mg twice a day and sglt2 inhibitors. Clinically appears on the dry side to me. Continue same medications for now. likely dc to rehab
--- NOTE | 2022-03-12 11:51 | CASEMGMT ---
SHAWN called patient's daughter and left her a voice mail inquiring about which facilities they chose for patient. SHAWN requested a return call. Teresa VYAS
[2022-03-12 12:10] LABS: Bedside Glucose 254 mg/dL (74-106)
--- NOTE | 2022-03-12 15:26 | CASEMGMT ---
SW called patient's daughter Maryanne and there was no answer. SHAWN left a message for Maryanne earlier today. Await call from daughter to see which facility they would like for patient. Teresa VYAS
[2022-03-12] MEDS: 0.9% Saline Lock 10 ML Syringe IV (16:44)
[2022-03-12] MEDS: Ondansetron 4 MG/2 ML Vial IV (16:44)
[2022-03-12 18:21] LABS: Bedside Glucose 153 mg/dL (74-106)
--- NOTE | 2022-03-12 23:10 | CPS ---
Pt refused BiPAP
[2022-03-13] VITALS (8 sets, daily range): BP systolic 99–129; BP diastolic 48–76; PULSE 80–97; RESP 16–18; TEMP 36.5–36.7; O2SAT 88–97
[2022-03-13] MEDS: Menthol/Lanolin/Calamine/Znox 113 GM Tube 1 APPLIC TOPICAL ×2 (00:11→10:34)
[2022-03-13] MEDS: rifAXIMin 550 MG Tablet PO ×2 (00:12→10:27)
[2022-03-13] MEDS: Amox/Clavulanate 500 MG Tablet PO ×2 (00:12→10:27)
[2022-03-13] MEDS: Tamsulosin HCl 0.4 MG Capsule 0.8 MG PO (00:13)
[2022-03-13] MEDS: Pramipexole Di-HCl 1 MG Tablet PO (00:14)
[2022-03-13] MEDS: Lactulose 20 GM/30 ML UDC PO ×2 (00:14→10:34)
[2022-03-13] MEDS: Pantoprazole Sodium 40 MG Tablet PO ×2 (00:14→10:27)
[2022-03-13] MEDS: Sucralfate 1 GM Tablet PO ×3 (00:14→12:24)
[2022-03-13 02:47] LABS: Bedside Glucose 140 mg/dL (74-106)
[2022-03-13] MEDS: Insulin Lispro 100 UNIT/ML INSULN.PEN SC ×3 (06:31→12:24)
[2022-03-13] MEDS: Levothyroxine 125 MCG Tablet PO (06:31)
[2022-03-13] MEDS: Carbidopa/Levodopa 25/100 Tablet PO ×2 (06:31→12:24)
[2022-03-13 07:05] LABS: Bedside Glucose 164 mg/dL (74-106)
[2022-03-13] MEDS: Midodrine HCl 5 MG Tablet 10 MG PO ×2 (08:41→12:24)
--- NOTE | 2022-03-13 09:02 | CASEMGMT ---
SW went to patient's room. SW introduced self and role at [facility]. SW asked patient if he and his daughter discussed which facility they would like for rehab. Patient said [facility] is the first choice. SW let patient know SW will send a referral. SW sent a referral to [facility] via [facility]. Teresa VYAS
--- NOTE | 2022-03-13 09:10 | PN.HOSP_ITS ---
Subjective Subjective Follow-up respiratory failure Patient seen per nursing staff patient has been having frequent diarrhea adjusted patient lactulose dose to 20 g daily from 20 g twice daily Objective Data Objective Data Vital Signs: Vital Signs Temp Pulse Resp BP Pulse Ox O2 Del Method O2 Flow Rate 98.1 F 97 18 109/51 L 93 Nasal Cannula 2 03/13/22 08:39 03/13/22 08:39 03/13/22 08:39 03/13/22 08:39 03/13/22 08:39 03/13/22 08:51 03/13/22 08:51 FiO2 92 03/10/22 07:48 Oxygen Flow Rate (L/min) 2 Oxygen Delivery Method [2] Bi-pap Oxygen Delivery Method [1 ( Bi-pap Initial Baseline)] Oxygen Delivery Method Nasal Cannula Weight: 95.4 kg Body Mass Index (BMI) 29.7 Intake & Output: Intake and Output for Last 24 Hours 03/11/22 03/12/22 03/13/22 23:59 23:59 23:59 Intake Total 460 / 460 Output Total 2100 / 2100 300 / 300 Balance -1640 / -1640 -300 / -300 Lab / Micro Data Result Diagrams: 03/12/22 03:40 03/12/22 03:40 Labs: Laboratory Results - last 24 hr 03/09/22 03:35: Diff Path Review Reviewed 03/10/22 05:27: Diff Path Review Reviewed 03/11/22 05:57: Diff Path Review Reviewed 03/12/22 11:28: POC Glucose 254 H 03/12/22 17:52: POC Glucose 153 H 03/12/22 23:57: POC Glucose 140 H 03/13/22 06:28: POC Glucose 164 H Micro: Microbiology 03/06/22 17:55 Blood Culture (Wb) - Anticubital Right Blood Culture - Final No growth in 5 days. 03/06/22 17:10 Blood Culture (Wb) - Anticubital Left Blood Culture - Final No growth in 5 days. 03/06/22 18:45 Urine Catheter - Catheter Urine Culture - Final Aerococcus viridans. Physical Exam Narrative GENERAL: cooperative HEENT: Atraumatic; normocephalic EYES; Anicteric, Normal Conjunctiva NECK; supple, normal thyroid, RESPIRATORY: Diminished to auscultation CARDIOVASCULAR: Regular S1 S2, GI: soft, normoactive bowel sounds, : No Renal angle tenderness; EXTREMITIES: edema, no clubbing, MUSCULOSKELETAL: no muscle wasting NEURO: Awake; no lateralizing signs. SKIN: No Rash PSYCH; Flat affect Assessment & Plan Assessment/Plan (1) Acute and chronic respiratory failure with hypercapnia: PLAN: Plan Patient is a 76-year-old male with multiple comorbidities admitted with progressive shortness of breath and confusion. Was diagnosed with new onset pleural effusion and ascites secondary to cirrhosis of the liver 1. Acute combined respiratory failure secondary to acute fluid overload/right hepatothorax/acute CHF exacerbation, . Managed with treatment of the underlying conditions 2. Acute on chronic congestive heart failure with preserved ejection fraction ? Patient managed with diuretics, strict input and output Daily weight fluid re striction 3. Elevated troponin Secondary to demand ischemia from patient hypoxemia patient seen in consultation by cardiology 4. Acute decompensated cirrhosis of the liver with ascites and hydrothorax with hepatic encephalopathy ? Patient underwent ultrasound-guided paracentesis with almost 7 L of ascitic fluid taken off. Subsequently managed with lactulose and rifaximin -03/13/2022; did decrease patient lactulose dose from 20 g twice daily to 20 mg daily due to frequent loose bowel movement 5. Acute hepatic encephalopathy ? Managed with lactulose and rifaximin resolved 6. Esophageal stenosis ? Status post dilation. Patient has been seen in consultation by GI following 7. Upper GI bleed ? Secondary to erosive gastropathy patient underwent EGD which did not show nonbleeding erosive gastropathy, multiple nonbleeding duodenal ulcers, multiple oozing duodenal ulcers status post injection and heater probe treatment. Subsequently placed on Carafate and PPI 8. Acute kidney injury ? Superimposed on chronic kidney disease stage III. She has been seen in consultation by nephrology notes and recommendations reviewed 9. Anemia - Secondary to chronic disorder monitoring H&H and transfuse if patient becomes symptomatic or hemoglobin falls below 7 10. Parkinson's disease ? Patient is on Sinemet did continue 11. DVT prophylaxis ? Bilateral SCDs 12. Physical deconditioning - Requested for PT OT eval and social media specialist to assist with discharge planning 13. ?Pancytopenia -due to chronic liver disease, monitoring with daily CBCs Time spent in the patient's overall evaluation,decision-making process, review of diagnostic data, adjustment of management, discussion with other providers, nursing nursing and ancillary staff involved in patient's care documentation, 39-minute Charges/Coding Visit Charges Inpatient E&M: 24361 Subs Hosp L2
[2022-03-13] MEDS: 0.9% Saline Lock 10 ML Syringe IV (10:11)
[2022-03-13] MEDS: Ondansetron 4 MG/2 ML Vial IV (10:11)
[2022-03-13] MEDS: Empagliflozin 10 MG Tablet PO (10:27)
[2022-03-13] MEDS: Furosemide 40 MG Tablet PO (10:27)
--- NOTE | 2022-03-13 10:37 | NURSING ---
Pt states he has been trying to vomit for 4 days. Trying to relieve bloating and abd pressure. Notes he often feels better with fernando shane. Zofran and fernando shane given. Pt denies significant improvement
--- NOTE | 2022-03-13 11:26 | PCM.PN.REN ---
Subjective Subjective no new events Objective Data Objective Data Vital Signs: Vital Signs Temp Pulse Resp BP Pulse Ox O2 Del Method O2 Flow Rate 98.1 F 97 18 109/51 L 93 Nasal Cannula 3 03/13/22 08:39 03/13/22 08:39 03/13/22 08:39 03/13/22 08:39 03/13/22 08:39 03/13/22 08:51 03/13/22 10:16 FiO2 92 03/10/22 07:48 Oxygen Flow Rate (L/min) 3 Oxygen Delivery Method [2] Bi-pap Oxygen Delivery Method [1 ( Bi-pap Initial Baseline)] Oxygen Delivery Method Nasal Cannula Weight: 95.4 kg Body Mass Index (BMI) 29.7 Intake & Output: Intake and Output for Last 24 Hours 03/11/22 03/12/22 03/13/22 23:59 23:59 23:59 Intake Total 460 / 460 Output Total 2100 / 2100 300 / 300 Balance -1640 / -1640 -300 / -300 Lab / Micro Data Result Diagrams: 03/12/22 03:40 03/12/22 03:40 Labs: Laboratory Results - last 24 hr 03/12/22 11:28: POC Glucose 254 H 03/12/22 17:52: POC Glucose 153 H 03/12/22 23:57: POC Glucose 140 H 03/13/22 06:28: POC Glucose 164 H Micro: Microbiology 03/06/22 17:55 Blood Culture (Wb) - Anticubital Right Blood Culture - Final No growth in 5 days. 03/06/22 17:10 Blood Culture (Wb) - Anticubital Left Blood Culture - Final No growth in 5 days. 03/06/22 18:45 Urine Catheter - Catheter Urine Culture - Final Aerococcus viridans. Physical Exam Narrative General: Alert. NAD. HEENT: Normocephalic, atraumatic. Mucous membrane moist. PERRLA, EOMI. Hearing is intact. Speech is somewhat slurred. Neck: Supple, no JVD, no bruit. Trachea is midline. No lymphadenopathy. Cardiovascular: Normal S1, S2. No rubs, murmurs, or gallops. Lungs: Clear to auscultation anteriorly. Decreased breath sound at bases bilaterally posteriorly. Abdomen: Slightly distended, normal bowel sound, soft, nontender, no guarding or rebound. Extremities: No clubbing, cyanosis, or edema. Musculoskeletal: Full passive range of motion, no joint swelling. Skin: Warm and dry, no rash. Psychiatric: Normal mood and affect. Neurologic: No focal neurologic deficits. Assessment & Plan Assessment/Plan (1) PRUDENCE (acute kidney injury): (2) Cirrhosis: (3) Acute and chronic respiratory failure with hypercapnia: PLAN: Plan Impression/Plan: The patient is a 76-year-old man with past history of type 2 diabetes mellitus, hypertension, COPD, Parkinson's disease, and hypothyroidism. The patient was admitted on 03/06/2022 for acute and chronic hypoxic and hypercapnic respiratory failure. He was found to have a new onset right pleural effusion along with ascites and liver cirrhosis. Nephrology is following for acute kidney injury. Acute kidney injury. Baseline renal function has been relatively normal. His serum creatinine was 1.09 mg/dL with estimated GFR of 69 mL/min prior to admission on 02/20/2022. Came in with a creatinine of 2.3 on 03/06/2022., has fluctuated about the same number. Today's creatinine is slightly better Urine analysis shows some protein, cells. Serologies have been sent and are pending. CT abdomen without any hydronephrosis. Other ongoing events include -newly diagnosed cirrhosis as seen on CT abdomen. Not sure if this is related to cardiac issues or a primary problem. Gastroenterology is following. Endoscopy with multiple ulcers. Congestive heart failure versus? Hepatic hydrothorax. Currently on Lasix 40 mg twice a day and sglt2 inhibitors. Continue same medications for now. cr slowly improving
[2022-03-13 12:00] LABS: Bedside Glucose 239 mg/dL (74-106)
--- NOTE | 2022-03-13 12:36 | CASEMGMT ---
Patient was accepted at [facility]. SW notified physician. Plan: d/c to [facility] when medically ready. Teresa VYAS
--- NOTE | 2022-03-13 13:25 | TREXTCAR_ITS ---
Diet Diet Order/Speech Therapy: 03/12/22 15:37 Diet: Carbohydrate Controlled Dietary Modifications:: Sodium Restricted Is pt able to select menu?: No Fluid restriction:: 1500 mL Routine Orders/Code Status Code Status: Full Code Wound(s) top of left toes: Wound Type: Neuropathic/Diabetic Foot Ulcer right lower abdominal quadrant: Wound Type: Puncture Therapies Physical Therapy: Eval and Treat Occupational Therapy: Eval and Treat Problem/Diagnosis (1) PRUDENCE (acute kidney injury): Status: Acute Code(s): N17.9 - Acute kidney failure, unspecified (2) Cirrhosis: Status: Acute Code(s): K74.60 - Unspecified cirrhosis of liver (3) Acute and chronic respiratory failure with hypercapnia: Status: Chronic Code(s): J96.22 - Acute and chronic respiratory failure with hypercapnia Plan Patient is a 76-year-old male with multiple comorbidities admitted with progressive shortness of breath and confusion. Was diagnosed with new onset pleural effusion and ascites secondary to cirrhosis of the liver 1. Acute combined respiratory failure secondary to acute fluid overload/right hepatothorax/acute CHF exacerbation, . Managed with treatment of the underlying conditions 2. Acute on chronic congestive heart failure with preserved ejection fraction ? Patient managed with diuretics, strict input and output Daily weight fluid restriction 3. Elevated troponin Secondary to demand ischemia from patient hypoxemia patient seen in consultation by cardiology 4. Acute decompensated cirrhosis of the liver with ascites and hydrothorax with hepatic encephalopathy ? Patient underwent ultrasound-guided paracentesis with almost 7 L of ascitic fluid taken off. Subsequently managed with lactulose and rifaximin -03/13/2022; did decrease patient lactulose dose from 20 g twice daily to 20 mg daily due to frequent loose bowel movement 5. Acute hepatic encephalopathy ? Managed with lactulose and rifaximin resolved 6. Esophageal stenosis ? Status post dilation. Patient has been seen in consultation by GI following 7. Upper GI bleed ? Secondary to erosive gastropathy patient underwent EGD which did not show nonbleeding erosive gastropathy, multiple nonbleeding duodenal ulcers, multiple oozing duodenal ulcers status post injection and heater probe treatment. Subsequently placed on Carafate and PPI 8. Acute kidney injury ? Superimposed on chronic kidney disease stage III. She has been seen in consultation by nephrology notes and recommendations reviewed 9. Anemia - Secondary to chronic disorder monitoring H&H and transfuse if patient becomes symptomatic or hemoglobin falls below 7 10. Parkinson's disease ? Patient is on Sinemet did continue 11. DVT prophylaxis ? Bilateral SCDs 12. Physical deconditioning - Requested for PT OT eval and psychiatric social worker supervisor to assist with discharge planning 13. ?Pancytopenia -due to chronic liver disease, monitoring with daily CBCs Time spent in the patient's overall evaluation,decision-making process, review of diagnostic data, adjustment of management, discussion with other providers, nursing nursing and ancillary staff involved in patient's care documentation, 39-minute Allergies/Procedures Done in Hospital Allergies aloe vera Adverse Reaction (Verified 03/06/22 17:15) Rash diclofenac Adverse Reaction (Verified 03/06/22 17:15) intolerance, leg edema Type of Care/Length of Stay Estimated LOS: Convalescent Care Less Than 30 days Type of Care Needed: Skilled Rehab Potential: Good Prognosis: Good Additional Orders/Day of Discharge Day of Discharge: 03/13/22 Dietary and Speech Recommendations Dietitian Recommendations/Changes: will adjust diet to CHO controlled, sodium restricted; consider ONS if PO intake at meals fails Discharge Plan Admission Admit Date/Time: 03/06/22 20:10 Attending Provider: Rohith Vann Primary Care Provider: Edis Rogers Consulting Providers: Ryan Tapia ; Pam Mata ; Waylon Hdez ; Kedar Borja ; Josie Frazier ; Claribel Hernandez Discharge Orders/Prescriptions Prescriptions: New furosemide 40 mg Tablet 40 mg PO BIDLX Qty: 0 0RF acetaminophen [Tylenol] 325 mg Tablet 650 mg PO Q6H PRN PRN (Reason: Pain 1-10 Or Fever >100.7) Qty: 0 0RF sucralfate 1 gram Tablet 1 g PO 1HR_ACHS Qty: 0 0RF midodrine 5 mg Tablet 10 mg PO TIDCM Qty: 0 0RF pantoprazole 40 mg Tablet,Delayed Release (Dr/Ec) 40 mg PO BID Qty: 0 0RF insulin lispro [Humalog KwikPen Insulin] 100 unit/mL Insulin Pen See Protocol subcut ACHS Qty: 0 0RF Protocol: 1. Sliding Scale Insulin Low Dosing Condition: 150-224 mg/dl = 1 unit Condition: 225-299 mg/dl = 2 units Condition: 300-374 mg/dl = 3 units Condition: 375-499 mg/dl = 4 units Condition: Greater than 449 call physician Protocol Text: - Use for Total Daily Dose of Insulin 15-27 units - Thin, elderly, renal patients LOW DOSING ALGORITHM Xifaxan 550 mg Tablet 550 mg PO BID Qty: 0 0RF lactulose 20 gram/30 mL Solution 20 g PO DAILY Qty: 0 0RF Continued tamsulosin 0.4 MG capsule 0.8 mg PO QHS carbidopa-levodopa 1 TABLET tablet 2 tab PO TIDAC Jardiance 10 MG tablet 10 mg PO DAILY trazodone 50 mg tablet 30 mg PO DAILY ropinirole 2 mg tablet 2 mg PO QHS levothyroxine [Levoxyl] 125 mcg tablet 125 mcg PO DAILY Discontinued metformin 500 MG tablet,ER sara.retention 24 hr 500 mg PO DINNER lisinopril [Zestril] 10 MG tablet 10 mg PO DAILY tramadol 50 mg tablet 50 mg PO Q6H PRN (Reason: pain) 3 Days Qty: 12 0RF Referrals / Follow Up: Edis Rogers MD [Primary Care Provider] - Disposition Disposition (needs filled in before D/C Order can be placed): [facility]
--- NOTE | 2022-03-13 13:28 | DS.PCM_ITS ---
Providers Date of Admission: 03/06/22 Date of Discharge: 03/13/22 Primary Care Physician: Dr. Edis Rogers MD Consultations 03/06/22 21:47 Consult: Cardiology Routine Consulting Provider: Pam Mata Reason for Consult: Elevated troponin EMERGENT Consult: No Notified: Yes Date Notified: 03/07/22 Time Notified: 07:38 Method of Notification: Answering Service Method of Consult:: In-Person Consult: Gastroenterology Routine Consulting Provider: Waylon Hdez Reason for Consult: Cirrhosis; colitis EMERGENT Consult: No Notified: Yes Date Notified: 03/07/22 Time Notified: 20:23 Method of Notification: Text Consult: Marker Hand / Pulmonary Medicine Routine Consulting Provider: Kedar Borja Reason for Consult: Acute hypoxemic respiratory failure EMERGENT Consult: No Notified: Yes Date Notified: 03/06/22 Time Notified: 21:01 Method of Notification: Text 03/09/22 14:11 Consult: Nephrology Routine Consulting Provider: Josie Frazier Reason for Consult: PRUDENCE on CKD EMERGENT Consult: No Notified: Yes Date Notified: 03/09/22 Time Notified: 14:29 Method of Notification: Answering Service Reason For Visit: ACUTE HEART FAILURE Diagnosis Discharge Diagnosis (1) PRUDENCE (acute kidney injury): Status: Acute Code(s): N17.9 - Acute kidney failure, unspecified (2) Cirrhosis: Status: Acute Code(s): K74.60 - Unspecified cirrhosis of liver (3) Acute and chronic respiratory failure with hypercapnia: Status: Chronic Code(s): J96.22 - Acute and chronic respiratory failure with hypercapnia Plan Patient is a 76-year-old male with multiple comorbidities admitted with progressive shortness of breath and confusion. Was diagnosed with new onset pleural effusion and ascites secondary to cirrhosis of the liver 1. Acute combined respiratory failure secondary to acute fluid overload/right hepatothorax/acute CHF exacerbation, . Managed with treatment of the underlying conditions 2. Acute on chronic congestive heart failure with preserved ejection fraction ? Patient managed with diuretics, strict input and output Daily weight fluid restriction 3. Elevated troponin Secondary to demand ischemia from patient hypoxemia patient seen in consultation by cardiology 4. Acute decompensated cirrhosis of the liver with ascites and hydrothorax with hepatic encephalopathy ? Patient underwent ultrasound-guided paracentesis with almost 7 L of ascitic fluid taken off. Subsequently managed with lactulose and rifaximin -03/13/2022; did decrease patient lactulose dose from 20 g twice daily to 20 mg daily due to frequent loose bowel movement 5. Acute hepatic encephalopathy ? Managed with lactulose and rifaximin resolved 6. Esophageal stenosis ? Status post dilation. Patient has been seen in consultation by GI following 7. Upper GI bleed ? Secondary to erosive gastropathy patient underwent EGD which did not show nonbleeding erosive gastropathy, multiple nonbleeding duodenal ulcers, multiple oozing duodenal ulcers status post injection and heater probe treatment. Subsequently placed on Carafate and PPI 8. Acute kidney injury ? Superimposed on chronic kidney disease stage III. She has been seen in consultation by nephrology notes and recommendations reviewed 9. Anemia - Secondary to chronic disorder monitoring H&H and transfuse if patient becomes symptomatic or hemoglobin falls below 7 10. Parkinson's disease ? Patient is on Sinemet did continue 11. DVT prophylaxis ? Bilateral SCDs 12. Physical deconditioning - Requested for PT OT eval and bilingual social worker to assist with discharge planning 13. ?Pancytopenia -due to chronic liver disease, monitoring with daily CBCs Medications at Discharge Home Medications tamsulosin 0.4 mg capsule 0.8 mg PO QHS prostate 06/26/15 carbidopa 25 mg-levodopa 100 mg tablet 2 tab PO TIDAC parkinsons 09/11/15 empagliflozin 10 mg tablet (Jardiance) 10 mg PO DAILY diabetes 01/09/18 levothyroxine 125 mcg tablet (Levoxyl) 125 mcg PO DAILY THYROID 03/06/22 ropinirole 2 mg tablet 2 mg PO QHS RESTLESS LEGS 03/06/22 trazodone 50 mg tablet 30 mg PO DAILY SLEEP 03/06/22 acetaminophen 325 mg tablet (Tylenol) 650 mg PO Q6H PRN PRN Pain 1-10 Or Fever >100.7 #0 tabs 03/13/22 furosemide 40 mg tablet 40 mg PO BIDLX #0 tabs 03/13/22 insulin lispro 100 unit/mL subcutaneous pen (Humalog KwikPen (U-100) Insulin) See Protocol subcut ACHS #0 mL 03/13/22 lactulose 20 gram/30 mL oral solution 20 g (30 mL) PO DAILY #0 mL 03/13/22 midodrine 5 mg tablet 10 mg PO TIDCM #0 tabs 03/13/22 pantoprazole 40 mg tablet,delayed release 40 mg PO BID #0 tabs 03/13/22 rifaximin 550 mg tablet (Xifaxan) 550 mg PO BID #0 tabs 03/13/22 sucralfate 1 gram tablet 1 g PO 1HR_ACHS #0 tabs 03/13/22 Hospital Course Summary of Care Provided Minutes Spent on Discharge: 38 Physical Exam Narrative GENERAL: cooperative HEENT: Atraumatic; normocephalic EYES; Anicteric, Normal Conjunctiva NECK; supple, normal thyroid, RESPIRATORY: Diminished to auscultation CARDIOVASCULAR: Regular S1 S2, GI: soft, normoactive bowel sounds, : No Renal angle tenderness; EXTREMITIES: edema, no clubbing, MUSCULOSKELETAL: no muscle wasting NEURO: Awake; no lateralizing signs. SKIN: No Rash PSYCH; Flat affect Weight / BMI Weight Weight: 95.4 kg Body Mass Index (BMI) 29.7 ABG / Lab / Microbiology Data Result Diagrams: 03/12/22 03:40 03/12/22 03:40 Laboratory: Laboratory Results - last 24 hr 03/12/22 17:52: POC Glucose 153 H 03/12/22 23:57: POC Glucose 140 H 03/13/22 06:28: POC Glucose 164 H 03/13/22 11:27: POC Glucose 239 H Microbiology: Microbiology 03/06/22 17:55 Blood Culture (Wb) - Anticubital Right Blood Culture - Final No growth in 5 days. 03/06/22 17:10 Blood Culture (Wb) - Anticubital Left Blood Culture - Final No growth in 5 days. 03/06/22 18:45 Urine Catheter - Catheter Urine Culture - Final Aerococcus viridans. D/C Instructions Discharge Diet: 1800 Calorie Control Diet and 2000 mg Sodium Diet Discharge Activity: Return to Normal Activity Call your doctor if you observe: Fever of 101 or Higher, Shortness of breath, Fainting spells and Chest pain Meaningful Use Info Meaningful Use Diagnoses (Choose all that apply): CHF CHF SNOW/ARB ordered at discharge?: No Reason SNOW/ARB not ordered?: Worsening renal function Documented LVEF (%): 65 Discharge Plan Admission Admit Date/Time: 03/06/22 20:10 Attending Provider: Rohith Vann Primary Care Provider: Edis Rogers Consulting Providers: Ryan Tapia ; Pam Mtaa ; Waylon Hdez ; Kedar Borja ; Josie Frazier ; Claribel Hernandez Discharge Orders/Prescriptions Prescriptions: New furosemide 40 mg Tablet 40 mg PO BIDLX Qty: 0 0RF acetaminophen [Tylenol] 325 mg Tablet 650 mg PO Q6H PRN PRN (Reason: Pain 1-10 Or Fever >100.7) Qty: 0 0RF sucralfate 1 gram Tablet 1 g PO 1HR_ACHS Qty: 0 0RF midodrine 5 mg Tablet 10 mg PO TIDCM Qty: 0 0RF pantoprazole 40 mg Tablet,Delayed Release (Dr/Ec) 40 mg PO BID Qty: 0 0RF insulin lispro [Humalog KwikPen Insulin] 100 unit/mL Insulin Pen See Protocol subcut ACHS Qty: 0 0RF Protocol: 1. Sliding Scale Insulin Low Dosing Condition: 150-224 mg/dl = 1 unit Condition: 225-299 mg/dl = 2 units Condition: 300-374 mg/dl = 3 units Condition: 375-499 mg/dl = 4 units Condition: Greater than 449 call physician Protocol Text: - Use for Total Daily Dose of Insulin 15-27 units - Thin, elderly, renal patients LOW DOSING ALGORITHM Xifaxan 550 mg Tablet 550 mg PO BID Qty: 0 0RF lactulose 20 gram/30 mL Solution 20 g PO DAILY Qty: 0 0RF Continued tamsulosin 0.4 MG capsule 0.8 mg PO QHS carbidopa-levodopa 1 TABLET tablet 2 tab PO TIDAC Jardiance 10 MG tablet 10 mg PO DAILY trazodone 50 mg tablet 30 mg PO DAILY ropinirole 2 mg tablet 2 mg PO QHS levothyroxine [Levoxyl] 125 mcg tablet 125 mcg PO DAILY Discontinued metformin 500 MG tablet,ER sara.retention 24 hr 500 mg PO DINNER lisinopril [Zestril] 10 MG tablet 10 mg PO DAILY tramadol 50 mg tablet 50 mg PO Q6H PRN (Reason: pain) 3 Days Qty: 12 0RF Referrals / Follow Up: Edis Rogers MD [Primary Care Provider] - Disposition Disposition (needs filled in before D/C Order can be placed): Shelter Facility Charges/Coding Visit Charges Inpatient E&M: 52343 Disch Hosp >30min
[2022-03-13 14:08] LABS: Pathologist Review Reviewed
--- NOTE | 2022-03-13 14:22 | NURSING ---
Report called to [facility], cheli Cruz
--- NOTE | 2022-03-13 14:22 | CASEMGMT ---
SHAWN sent orders and COVID test to [facility] via [facility]. SHAWN arranged for patient to get picked up at 4p via wheelchair van. SHAWN notified RN, psychiatric secretary, patient's daughter, and Irene at [facility]. SHAWN completed 7000 in [facility]. All in agreement with d/c plan. Plan: d/c to [facility] under skilled level of care on a 7000. [facility] will transport via wheelchair van. Teresa Brady V [employer]DER ASAEL
--- NOTE | 2022-03-13 14:28 | PHA.DC.MR ---
Pharmacy Service has performed discharge medication reconciliation for this patient. The patient's discharge medication list was reviewed for discrepancies and discrepancies were resolved. Home Medications tamsulosin 0.4 mg capsule 0.8 mg PO QHS prostate 06/26/15 carbidopa 25 mg-levodopa 100 mg tablet 2 tab PO TIDAC parkinsons 09/11/15 empagliflozin 10 mg tablet (Jardiance) 10 mg PO DAILY diabetes 01/09/18 levothyroxine 125 mcg tablet (Levoxyl) 125 mcg PO DAILY THYROID 03/06/22 ropinirole 2 mg tablet 2 mg PO QHS RESTLESS LEGS 03/06/22 trazodone 50 mg tablet 30 mg PO DAILY SLEEP 03/06/22 acetaminophen 325 mg tablet (Tylenol) 650 mg PO Q6H PRN PRN Pain 1-10 Or Fever >100.7 #0 tabs 03/13/22 furosemide 40 mg tablet 40 mg PO BIDLX #0 tabs 03/13/22 insulin lispro 100 unit/mL subcutaneous pen (Humalog KwikPen (U-100) Insulin) See Protocol subcut ACHS #0 mL 03/13/22 lactulose 20 gram/30 mL oral solution 20 g (30 mL) PO DAILY #0 mL 03/13/22 midodrine 5 mg tablet 10 mg PO TIDCM #0 tabs 03/13/22 pantoprazole 40 mg tablet,delayed release 40 mg PO BID #0 tabs 03/13/22 rifaximin 550 mg tablet (Xifaxan) 550 mg PO BID #0 tabs 03/13/22 sucralfate 1 gram tablet 1 g PO 1HR_ACHS #0 tabs 03/13/22
[2022-03-13 16:26] LABS: Gastrin, Serum < 10 pg/mL (0-115)
== END 2022-03-13 16:59 | disposition skilled nursing facility (03) | DRG 280 ==
LOC: ED 20:35 → ICU 21:02 → PCU 03-09 10:28
PROVIDERS: Internal Medicine; Internal Medicine Cardiovascular Disease; Internal Medicine Critical Care Medicine; Internal Medicine Gastroenterology; Radiology Diagnostic Radiology; Admitting Provider Hospitalist; Emergency Provider Emergency Medicine; PCP Family Medicine; Visit Provider Internal Medicine
PROC: 0DJ08ZZ Inspection of Upper Intestinal Tract, Via Natural or Artificial Opening Endoscopic (ICD-10-PCS; CPT 43235; principal; 2022-03-08 11:55)
DX: I13.0 Hypertensive heart and chronic kidney disease with heart failure and stage 1 through stage 4 chronic kidney disease, or unspecified chronic kidney disease (principal); I21.A1 Myocardial infarction type 2; J96.21 Acute and chronic respiratory failure with hypoxia; K76.7 Hepatorenal syndrome; G93.41 Metabolic encephalopathy; K28.4 Chronic or unspecified gastrojejunal ulcer with hemorrhage; I50.33 Acute on chronic diastolic (congestive) heart failure; J96.22 Acute and chronic respiratory failure with hypercapnia; D61.818 Other pancytopenia; N17.9 Acute kidney failure, unspecified; J94.8 Other specified pleural conditions; R18.8 Other ascites; E87.29 Other acidosis; J44.9 Chronic obstructive pulmonary disease, unspecified; K74.60 Unspecified cirrhosis of liver; N18.30 Chronic kidney disease, stage 3 unspecified; G20 Parkinson's disease; E11.65 Type 2 diabetes mellitus with hyperglycemia; E11.22 Type 2 diabetes mellitus with diabetic chronic kidney disease; Z79.4 Long term (current) use of insulin; E11.42 Type 2 diabetes mellitus with diabetic polyneuropathy; K76.82 Hepatic encephalopathy; K22.2 Esophageal obstruction; E78.5 Hyperlipidemia, unspecified; D50.0 Iron deficiency anemia secondary to blood loss (chronic); F41.9 Anxiety disorder, unspecified; K52.9 Noninfective gastroenteritis and colitis, unspecified; K75.81 Nonalcoholic steatohepatitis (NASH); K29.60 Other gastritis without bleeding; K26.9 Duodenal ulcer, unspecified as acute or chronic, without hemorrhage or perforation; R53.81 Other malaise; E66.9 Obesity, unspecified; Z68.29 Body mass index [BMI] 29.0-29.9, adult; Z79.84 Long term (current) use of oral hypoglycemic drugs; Z79.899 Other long term (current) drug therapy; Z87.891 Personal history of nicotine dependence
CPT/HCPCS: 36415; 36600; 49083; 70450; 71045; 74176; 76604; 80048; 80053; 80061; 80076; 81001; 82105; 82140; 82525; 82728; 82803; 82941; 82945; 82962; 83516; 83540; 83550; 83605; 83615; 83690; 83735; 83880; 84157; 84443; 84484; 85025; 85610; 85730; 86225; 86235; 86256; 87040; 87086; 87088; 87426; 88108; 88305; 88313; 89050; 93005; 93306; 94002; 94003; 94640; 94762; 97110; 97116; 97162; 97166; 97530; 97535; 97802; 97803; 99285; J7030; P9047; Q9957; A4216; C8929; J0295; J1940; J2405

== ENCOUNTER → 2022-03-25 | Outpatient (CLI) | payer MEDICARE, OTHER, SELFPAY | END | disposition home or self-care (01) | LOC: US 09:21 | PROVIDERS: PCP Internal Medicine; Visit Provider Nurse Practitioner Adult Health | DX: Z00.00 Encounter for general adult medical examination without abnormal findings (principal) ==

== ENCOUNTER → 2022-03-28 | Outpatient (CLI) | payer MEDICARE, OTHER, SELFPAY ==
--- NOTE | 2022-03-28 07:46 | US_ITS ---
PROCEDURE: Ultrasound guided paracentesis. DATE OF EXAMINATION: 03/28/2022. INDICATION: Male, 76 years old. Ascites. PHYSICIAN: Manuelito Mathews M.D. TECHNIQUE: The risks, benefits, and alternatives to the procedure were explained to the patient. The specific risks of bleeding, infection, and damage to bowel were detailed and accepted. Witnessed informed consent was obtained. The abdomen was ultrasonographically surveyed. An appropriate pocket of fluid was identified at the left lower quadrant. The skin were cleaned and prepped in the usual sterile fashion. Using ultrasound guidance, the peritoneal cavity was accessed with a 5-Bulgarian paracentesis needle/catheter system. The trocar was removed. A total of 5000 ml of tiffany-colored fluid were removed from the peritoneal cavity. The catheter was removed and a sterile dressing was applied. The procedure was well tolerated. US/Paracentesis with US IMPRESSION: Ultrasound guided paracentesis. Electronically Signed: Manuelito Mathews MD at 10:39 EST ,
[2022-03-28] MEDS: Lidocaine 2% (20 ml mdv) 20 ML Vial INFILT (08:17)
[2022-03-28 08:18] VITALS: BP 124/48; BP 141/64; PULSE 69; PULSE 75; RESP 16; RESP 18; TEMP 36.6; O2SAT 100; O2SAT 98
== END | disposition home or self-care (01) ==
PROVIDERS: PCP Internal Medicine; Referring Provider Internal Medicine; Visit Provider Internal Medicine
DX: R18.8 Other ascites (principal)
CPT/HCPCS: 49083

== ENCOUNTER → 2022-04-11 | Outpatient (CLI) | payer MEDICARE, OTHER, SELFPAY ==
--- NOTE | 2022-04-04 08:00 | US_ITS ---
STUDY: ABDOMINAL ULTRASOUND - 4 quadrants. REASON FOR VISIT: Male, 76 years old ASCITES TECHNIQUE: Ultrasound evaluation of the 4 quadrants was performed with real-time and static martin-scale imaging. TECHNICAL QUALITY: Adequate. COMPARISON: None. FINDINGS: Small amount of perihepatic fluid. Not enough fluid for safe paracentesis. US/Abdomen Limited IMPRESSION: Small amount of perihepatic fluid. Not enough fluid for safe paracentesis. Electronically Signed: Manuelito Mathews MD at 10:27 EST ,
[2022-04-04 08:09] VITALS: BP 134/62; PULSE 89; RESP 18; TEMP 36.6; O2SAT 99
--- NOTE | 2022-04-11 08:06 | US_ITS ---
STUDY: ABDOMINAL ULTRASOUND - ascites survey. REASON FOR VISIT: Male, 76 years old ASCITES TECHNIQUE: Ultrasound evaluation of the 4 quadrants was performed with real-time and static martin-scale imaging. TECHNICAL QUALITY: Adequate. COMPARISON: None. FINDINGS: Assessment of the 4 quadrants was obtained. No evidence of ascites. US/Abdomen Limited IMPRESSION: No evidence of ascites. Electronically Signed: Manuelito Mathews MD at 8:38 EST ,
--- NOTE | 2022-04-11 08:15 | NURSING ---
pt doesn't have anything to drain. dgtr aware.
== END | disposition home or self-care (01) ==
PROVIDERS: PCP Internal Medicine; Referring Provider Internal Medicine; Visit Provider Internal Medicine
DX: R18.8 Other ascites (principal)
CPT/HCPCS: 76705

== ENCOUNTER → 2022-05-24 | Outpatient (CLI) | payer MEDICARE, OTHER, SELFPAY ==
--- NOTE | 2022-05-24 11:33 | US_ITS ---
EXAM: US ABDOMEN LIMITED, RIGHT UPPER QUADRANT CLINICAL INDICATION: ASCITIES TECHNIQUE: Real-time ultrasound of the right upper quadrant with image documentation. This report was created using [employer] report generation technology. COMPARISON: 04/11/2022 FINDINGS: Fluid identified in all 4 quadrants, small to moderate in overall volume. US/Abdomen Limited IMPRESSION: Fluid identified in all 4 quadrants, small to moderate in overall volume. Electronically Signed: Angel Luis Lujan MD at 23:22 EDT ,
== END | disposition home or self-care (01) ==
LOC: US 11:32
PROVIDERS: PCP Internal Medicine; Referring Provider Internal Medicine; Visit Provider Internal Medicine
DX: R18.8 Other ascites (principal)
CPT/HCPCS: 76705

== ENCOUNTER → 2022-08-22 | Outpatient (CLI) | payer MEDICARE, OTHER, SELFPAY ==
--- NOTE | 2022-08-22 07:31 | US_ITS ---
PROCEDURE: Ultrasound guided paracentesis. DATE OF EXAMINATION: August 22, 2022.. INDICATION: Male, 77 years old. Ascites. PHYSICIAN: Manuelito Mathews M.D. TECHNIQUE: The risks, benefits, and alternatives to the procedure were explained to the patient. The specific risks of bleeding, infection, and damage to bowel were detailed and accepted. Witnessed informed consent was obtained. The abdomen was ultrasonographically surveyed. An appropriate pocket of fluid was identified at the right lower quadrant. The skin were cleaned and prepped in the usual sterile fashion. Using ultrasound guidance, the peritoneal cavity was accessed with a 5-Croatian paracentesis needle/catheter system. The trocar was removed. A total of 6100 ml of tiffany-colored fluid were removed from the peritoneal cavity. The catheter was removed and a sterile dressing was applied. The procedure was well tolerated. US/Paracentesis with US IMPRESSION: Ultrasound guided paracentesis. Electronically Signed: Manuelito Mathews MD at 9:26 EDT ,
[2022-08-22 08:56] VITALS: BP 114/57; BP 130/65; BP 141/58; PULSE 58; PULSE 60; PULSE 62; RESP 16; TEMP 36.4; O2SAT 95; O2SAT 97; O2SAT 99
--- NOTE | 2022-08-23 15:17 | CASEMGMT ---
transmission tester: Referral received regarding concerns related to access to food, assistance in the home, and physician follow-up. Call placed to patient's phone and voicemail left requesting a return call. Call placed to pt's daughter Maryanne and voicemail left requesting a return call. Noted pt was discharged from [facility] in March 2022. To further understand the plan of care established at discharge from [facility], call placed and voicemail left for DON at [facility] requesting a return call. Will continue to follow-up on above to assess pt's situation and needs. Aleta Lester RN CM
== END | disposition home or self-care (01) ==
PROVIDERS: PCP Family Medicine; Referring Provider Internal Medicine; Visit Provider Internal Medicine
DX: R18.8 Other ascites (principal)
CPT/HCPCS: 49083

== ENCOUNTER 2022-10-04 20:59 | Emergency (ER) | payer OTHER, SELFPAY ==
[2022-10-04 21:00] VITALS: BP 145/77; PULSE 94; RESP 16; TEMP 36.3; O2SAT 96
[2022-10-04 21:02] VITALS: BMI 35.4
--- NOTE | 2022-10-04 21:22 | EKG12_ITS ---
Test Reason : Dysrhythmia Blood Pressure : / mmHG Vent. Rate : 075 BPM Atrial Rate : 075 BPM P-R Int : 142 ms QRS Dur : 080 ms QT Int : 368 ms P-R-T Axes : 031 -02 035 degrees QTc Int : 410 ms Sinus rhythm with Premature supraventricular complexes Nonspecific T wave abnormality Abnormal ECG Confirmed by MATTHEW MENDOZA ([id number]), news videotape editor CHARLOTTE SOSA ([id number]) on 10/08/2022 9:07:09 AM Referred By: Confirmed By:MATTHEW MENDOZA
[2022-10-04 21:50] LABS: Absolute Lymphocyte Count 1.15 X10^3/uL (0.83-4.51); Absolute Neutrophil Count 2.2 X10^3/uL (2.0-7.7); Basophil# 0.02 X10^3/uL; Basophil% 0.5 % (0-1); Eosinophil# 0.15 X10^3/uL; Eosinophils% 3.8 % (0-5); Hematocrit 32.1 % (40-54); Hemoglobin 9.8 g/dL (13.0-16.5); Lymphocyte # 1.15 X10^3/ul (0.83-4.51); Lymphocyte % 29.2 % (19-41); Mean Corp Hgb Conc 30.5 g/dL (32-36); Mean Corpuscular Hgb 32.8 pg (27.0-32.0); Mean Corpuscular Volume 107.4 fL (80-94); Mean Platelet Vol. 8.9 fl (6.2-12.0); Monocyte# 0.45 X10^3/uL; Monocyte% 11.4 % (0-10); NRBC Flagged by Analyzer 0 % (0-5); Neutrophil # 2.16 X10^3/uL (2.7-7.7); Neutrophil % 54.8 % (47-70); Platelet Count 112 K/mm3 (150-450); RBC Distribution Width CV 13.9 % (11.6-14.6); RBC Distribution Width SD 55.8 fl (35.1-43.9); Red Blood Count 2.99 M/mm3 (4.6-6.2); White Blood Count 3.9 K/mm3 (4.4-11.0)
--- NOTE | 2022-10-04 21:50 | RAD_ITS ---
STUDY: X-RAY CHEST REASON FOR EXAM: Male, 77 years old. Dyspnea TECHNIQUE: PA and lateral COMPARISON: March 07, 2022 FINDINGS: There is less than optimal inspiratory effort and unspecific right diaphragmatic elevation with mild right basilar atelectasis. There is no demonstrated pleural abnormality. Normal size heart. Normal mediastinum and kenny. Normal visualized pulmonary arteries. Mildly calcified aortic arch and descending thoracic aorta. Dorsal spine demonstrates degenerative changes. Old posttraumatic deformity of the old left humeral shafts bilaterally. Old healed left rib fracture There is no demonstrated abnormality of the visualized soft tissue structures of the upper abdomen. RAD/Chest PA and Lateral IMPRESSION: Elevated right hemidiaphragm and minor basilar atelectasis. No acute cardiopulmonary pathology Electronically Signed: Bebeto Minor MD at 22:12 EDT ,
[2022-10-04] MEDS: Furosemide 40 MG/4 ML Vial IV (21:57)
[2022-10-04 21:58] LABS: International Normalized Ratio 1.3; Prothrombin Time (Protime)PT. 16.5 SECONDS (11.7-14.9)
[2022-10-04 21:59] LABS: Partial Thromboplast Time 33.6 Seconds (24.1-36.2)
--- NOTE | 2022-10-04 22:04 | EDS_ITS ---
HPI History of Present Illness Chief Complaint: Shortness of Breath Informant: patient Onset/Context/Timing Onset: Today Context: gradual Timing: Continuous Quality: Positive for Dyspnea on exertion Worsened by: Exertion Relieved by: Rest Associated Symptoms rhinorrhea, subjective and chills; Negative for cough, post nasal drip, ear pain, fever, sore throat, sweats or clear sputum Chest Pain: Positive for None Narrative Narrative: Patient presents with shortness of breath that became worse today. Patient states it is gradually gotten worse. Patient states his breathing is worse with any exertion. Patient states it is better with rest. Patient has a history of ascites and states that he thinks he needs fluid drawn off of his abdomen. Patient denies any fevers. Patient does admit to some subjective chills. Patient denies any abdominal pain. Patient denies any nausea or vomiting. Patient denies any chest pain. Patient admits to some swelling in his legs. [facility] Medical History Anxiety Asthma COPD (chronic obstructive pulmonary disease) Diabetes Former smoker Hyperlipidemia Hypertension Parkinsonian features Home Medications tamsulosin 0.4 mg capsule 0.8 mg PO QHS prostate 06/26/15 [History Last Taken 06/25/15] carbidopa 25 mg-levodopa 100 mg tablet 2 tab PO TIDAC parkinsons 09/11/15 [History Last Taken Unknown] empagliflozin 10 mg tablet (Jardiance) 10 mg PO DAILY diabetes 01/09/18 [History Last Taken Unknown] levothyroxine 125 mcg tablet (Levoxyl) 125 mcg PO DAILY THYROID 03/06/22 [History Last Taken Unknown] ropinirole 2 mg tablet 2 mg PO QHS RESTLESS LEGS 03/06/22 [History Last Taken Unknown] trazodone 50 mg tablet 30 mg PO DAILY SLEEP 03/06/22 [History Last Taken Unknown] acetaminophen 325 mg tablet (Tylenol) 650 mg (2 x 325 mg) PO Q6H PRN PRN Pain 1- 10 Or Fever >100.7 #0 tabs 03/13/22 [Rx Last Taken Unknown] furosemide 40 mg tablet 40 mg PO BIDLX #0 tabs 03/13/22 [Rx Last Taken Unknown] insulin lispro 100 unit/mL subcutaneous pen (Humalog KwikPen (U-100) Insulin) See Protocol subcut ACHS #0 mL 03/13/22 [Rx Last Taken Unknown] lactulose 20 gram/30 mL oral solution 20 g (30 mL) PO DAILY #0 mL 03/13/22 [Rx Last Taken Unknown] midodrine 5 mg tablet 10 mg (2 x 5 mg) PO TIDCM #0 tabs 03/13/22 [Rx Last Taken Unknown] pantoprazole 40 mg tablet,delayed release 40 mg PO BID #0 tabs 03/13/22 [Rx Last Taken Unknown] rifaximin 550 mg tablet (Xifaxan) 550 mg PO BID #0 tabs 03/13/22 [Rx Last Taken Unknown] sucralfate 1 gram tablet 1 g PO 1HR_ACHS #0 tabs 03/13/22 [Rx Last Taken Unknown] Allergy/AdvReac Type Severity Reaction Status Date / Time aloe vera AdvReac Rash Verified 10/04/22 21:00 diclofenac AdvReac intolerance, Verified 10/04/22 21:00 leg edema Surgical History Hx of hand surgery Social History Smoking Status: Former smoker ROS ROS ED Constitutional Constitutional ED: Reports chills; Denies fever(s) Eyes Eyes: Denies blurry vision or change in vision ENT ENT ED: Denies rhinorrhea or sore throat Cardiovascular Cardiovascular: Denies chest pain or palpitations Respiratory/Chest Respiratory/Chest: Reports dyspnea; Denies cough Gastrointestinal Gastrointestinal: Denies nausea or vomiting Genitourinary Genitourinary ED: Denies dysuria or hematuria Musculoskeletal Musculoskeletal: Reports back pain; Denies neck pain Integumentary Denies abscess or rash Neurologic Neurologic: Denies headache(s) or weakness Allergic/Immunologic Allergic/Immunologic ED: Denies mouth swelling or urticaria EXAM Physical Exam Const Vital Signs: 10/04/22 21:00 10/04/22 21:59 10/04/22 22:24 Temperature 97.3 F L Temperature Source Temporal Pulse Rate 94 94 Respiratory Rate 16 19 H Respiratory Effort Short of Breath Respiratory Depth Normal Respiratory Pattern Normal Blood Pressure 145/77 H 139/85 H Blood Pressure Mean 99 103 Pulse Ox 96 99 Oxygen Delivery Method Room Air Nasal Cannula Oxygen Flow Rate (L/min) 1 10/05/22 00:02 Temperature Temperature Source Pulse Rate 94 Respiratory Rate 19 H Respiratory Effort Respiratory Depth Respiratory Pattern Blood Pressure 139/85 H Blood Pressure Mean Pulse Ox 94 Oxygen Delivery Method Oxygen Flow Rate (L/min) Positive well nourished and well developed General Appearance ED: well developed and NAD HEENT Reports moist mucous membranes Neck supple and no JVD Resp normal respiratory effort and clear to auscultation bilaterally Cardio regular rate and regular rhythm GI non-tender GI Narrative: There is ascites noted. There is no tenderness noted. Palpation: soft Extremity General Extremety ED: Yes edema General Extremity: edema Neuro oriented x3, CN's II-XII intact bilaterally and no sensory deficits noted Cruz Coma Scale: document GCS findings Spontaneous Obeys Commands Oriented 15 Sensorium / Orientation: alert Speech: speech normal Motor Exam: strength 5/5 throughout Psych mental status grossly normal MDM MDM MDM Narrative Medical decision making narrative: Differential diagnosis includes congestive heart failure, acute kidney injury, cardiac dysrhythmia, cardiac ischemia, pneumonia, pancreatitis, and coagulopathy. EKG will be obtained to assess for cardiac dysrhythmia and cardiac ischemia. Chest x-ray will be obtained to assess for pneumonia and congestive heart failure. CBC will be obtained to assess for leukocytosis and anemia. Comprehensive metabolic profile will be obtained to assess for hepatic function, renal function, and electrolyte abnormality. Lipase will be obtained to assess for pancreatitis. PT was INR and PTT will be obtained to assess for coagulopathy. Ammonia will be obtained to assess for hepatic encephalopathy. Lab Data Attestation: I reviewed the patient's lab results. Lab results narrative: CBC was reviewed. There is a stable anemia with a hemoglobin of 9.8 and hematocrit of 32.1. PT was INR and PTT were reviewed. Pro time was slightly elevated at 16.5. INR is 1.3. PTT was normal at 33.6. Comprehensive metabolic profile was reviewed. BUN was slightly increased at 25. Creatinine was normal. Total bilirubin was slightly elevated at 1.3. AST, ALT, and alkaline phosphatase are within normal limits. Ammonia was reviewed and was normal. Lipase was reviewed and was normal. Labs: Laboratory Results - last 24 hr 10/04/22 21:38 WBC 3.9 L RBC 2.99 L Hgb 9.8 L Hct 32.1 L MCV 107.4 H MCH 32.8 H MCHC 30.5 L RDW Std Deviation 55.8 H RDW Coeff of Jean Claude 13.9 Plt Count 112 L MPV 8.9 Immature Gran % (Auto) 0.300 Neut % (Auto) 54.8 Lymph % (Auto) 29.2 [place] % (Auto) 11.4 H Eos % (Auto) 3.8 Baso % (Auto) 0.5 Absolute Neuts (auto) 2.2 Absolute Lymphs (auto) 1.15 Nucleated RBC % 0 PT 16.5 H INR 1.3 APTT 33.6 Sodium 142 Potassium 4.0 Chloride 108 H Carbon Dioxide 32.0 Anion Gap 2 L BUN 25 H Creatinine 1.03 Estim Creat Clear Calc 50.59 Est GFR (MDRD) Af Amer 90 Est GFR (MDRD) Non-Af 74 BUN/Creatinine Ratio 24.3 H Glucose 97 Calcium 8.3 L Total Bilirubin 1.30 H AST 32 ALT 24 Alkaline Phosphatase 109 Ammonia < 10.0 L Troponin I High Sens 31 B-Natriuretic Peptide 281.7 H Total Protein 6.4 Albumin 2.5 L Globulin 3.9 Albumin/Globulin Ratio 0.6 L Lipase 54 Radiography Chest X-Ray - ED: 2 View, Read by ED Physician, Read by Radiologist and No Acute Disease Diagnostic Testing: Clinical Impression(s) from Imaging Studies Chest X-Ray 10/04/22 21:50 IMPRESSION: Elevated right hemidiaphragm and minor basilar atelectasis. No acute cardiopulmonary pathology Electronically Signed: Bebeto Minor MD at 22:12 EDT , PA and lateral chest x-ray was obtained. There are 2 views. On my independent interpretation, lung shah show minor basilar atelectasis. There is normal cardiac silhouette. Bony thorax is normal. There is no acute process noted. Radiologist also interpreted the x-ray and agrees. EKG Initial EKG: Attestation: I personally reviewed and interpreted this EKG as follows: Interpretation: Sinus Rhythm (75 with occasional PAC) and Non-Specific ST Changes Comments: EKG was obtained. On my independent interpretation, it showed a normal sinus rhythm with occasional PAC with a rate of 75. CO interval, QRS interval, and QTc intervals were all normal. [place] was normal. There are no acute ST or T wave changes. Prior EKG tracings: available for review Prior: Unchanged (03/06/2022) Treatment and Re-Evaluation :: Patient was given a dose of Lasix here. Patient cannot urine output. Patient was advised of his findings. Patient was instructed to follow-up with his primary care physician in 5 to 7 days for reevaluation. Patient was instructed to return if worse in any way. Patient understood and was agreeable with plan. All questions were answered. Discharge Plan Triage Chief Complaint: Shortness of Breath ED Provider: Hema Jin Dx/Rx/DC Orders Clinical Impression: Ascites, Dyspnea Instructions: ED Ascites, ED Dyspnea Prescriptions: No Action tamsulosin 0.4 MG capsule 0.8 mg PO QHS carbidopa-levodopa 1 TABLET tablet 2 tab PO TIDAC Jardiance 10 MG tablet 10 mg PO DAILY trazodone 50 mg tablet 30 mg PO DAILY ropinirole 2 mg tablet 2 mg PO QHS levothyroxine [Levoxyl] 125 mcg tablet 125 mcg PO DAILY furosemide 40 mg Tablet 40 mg PO BIDLX Qty: 0 0RF acetaminophen [Tylenol] 325 mg Tablet 650 mg PO Q6H PRN PRN (Reason: Pain 1-10 Or Fever >100.7) Qty: 0 0RF sucralfate 1 gram Tablet 1 g PO 1HR_ACHS Qty: 0 0RF midodrine 5 mg Tablet 10 mg PO TIDCM Qty: 0 0RF pantoprazole 40 mg Tablet,Delayed Release (Dr/Ec) 40 mg PO BID Qty: 0 0RF insulin lispro [Humalog KwikPen Insulin] 100 unit/mL Insulin Pen See Protocol subcut ACHS Qty: 0 0RF Protocol: 1. Sliding Scale Insulin Low Dosing Condition: 150-224 mg/dl = 1 unit Condition: 225-299 mg/dl = 2 units Condition: 300-374 mg/dl = 3 units Condition: 375-499 mg/dl = 4 units Condition: Greater than 449 call physician Protocol Text: - Use for Total Daily Dose of Insulin 15-27 units - Thin, elderly, renal patients LOW DOSING ALGORITHM Xifaxan 550 mg Tablet 550 mg PO BID Qty: 0 0RF lactulose 20 gram/30 mL Solution 20 g PO DAILY Qty: 0 0RF Primary Care Provider: Edis Rogers Referrals: Edis Rogers MD [Primary Care Provider] - Disposition Disposition: Home, Self Care
[2022-10-04 22:07] LABS: BNP,B-Type NATRIURETIC PEPTIDE 281.7 pg/mL (0-100)
[2022-10-04 22:11] LABS: ALB/GLOB Ratio 0.6 RATIO (0.9-2.4); AST(SGOT) 32 U/L (15-37); Alanine Aminotransfer ALT/SGPT 24 U/L (16-61); Albumin, Serum 2.5 g/dL (3.2-5.0); Alkaline Phosphatase 109 U/L (45-117); Anion Gap 2 (5-15); BUN 25 mg/dL (7-18); BUN/Creat Ratio 24.3 RATIO (10-20); Calcium,Total 8.3 mg/dL (8.5-10.1); Chloride 108 mmol/L (98-107); Creatinine, Serum 1.03 mg/dL (0.70-1.30); EST Glomerular Filtration Rate 74 mL/min (>60); Est Glom Filt Rate - Afr Amer 90 mL/min (>60); Estimated Creatinine Clearance 50.59 ml/min; Globulin 3.9 g/dL (2.2-4.2); Glucose 97 mg/dL (74-106); Lipase 54 U/L (13-75); Protein, Total 6.4 g/dL (6.4-8.2); Sodium Level 142 mmol/L (136-145); Troponin-I HS 31 pg/mL (3.0-78.0)
[2022-10-04 22:22] LABS: Ammonia < 10.0 umol/L (11-32)
[2022-10-04 22:24] VITALS: BP 139/85; PULSE 94; RESP 19; O2SAT 99
[2022-10-05 00:02] VITALS: BP 139/85; PULSE 94; RESP 19; O2SAT 94
[2022-10-05 02:22] VITALS: BP 139/85; PULSE 94; RESP 15; O2SAT 96
== END 2022-10-05 02:23 | disposition home or self-care (01) ==
PROVIDERS: Emergency Provider Emergency Medicine; PCP Family Medicine; Visit Provider Emergency Medicine
DX: R18.8 Other ascites (principal); R06.00 Dyspnea, unspecified; Z87.891 Personal history of nicotine dependence
CPT/HCPCS: 71046; 80053; 82140; 83690; 83880; 84484; 85025; 85610; 85730; 93005; 96374; 99284; A4216; J1940

== ENCOUNTER → 2022-10-16 | Outpatient (CLI) | payer MEDICARE, OTHER, SELFPAY ==
--- NOTE | 2022-10-16 07:57 | US_ITS ---
PROCEDURE: Ultrasound guided paracentesis. DATE OF EXAMINATION: October 16, 2022. INDICATION: Male, 77 years old. Ascites. PHYSICIAN: Manuelito Mathews M.D. TECHNIQUE: The risks, benefits, and alternatives to the procedure were explained to the patient. The specific risks of bleeding, infection, and damage to bowel were detailed and accepted. Witnessed informed consent was obtained. The abdomen was ultrasonographically surveyed. An appropriate pocket of fluid was identified at the right lower quadrant. The skin were cleaned and prepped in the usual sterile fashion. Using ultrasound guidance, the peritoneal cavity was accessed with a 5-Romansh paracentesis needle/catheter system. The trocar was removed. A total of 8050 ml of tiffany-colored fluid were removed from the peritoneal cavity. The catheter was removed and a sterile dressing was applied. The procedure was well tolerated. US/Paracentesis with US IMPRESSION: Ultrasound guided paracentesis. Electronically Signed: Manuelito Mathews MD at 11:51 EDT ,
[2022-10-16 08:18] VITALS: BP 117/60; BP 118/61; BP 126/59; BP 131/58; PULSE 76; PULSE 80; PULSE 82; PULSE 86; RESP 18; TEMP 36.6; O2SAT 94; O2SAT 95; O2SAT 96
[2022-10-16] MEDS: Lidocaine 2% (20 ml mdv) 20 ML Vial INFILT (08:24)
== END | disposition home or self-care (01) ==
LOC: US 07:56
PROVIDERS: PCP Family Medicine; Referring Provider Internal Medicine; Visit Provider Internal Medicine
DX: R18.8 Other ascites (principal)
CPT/HCPCS: 49083

== ENCOUNTER → 2022-11-11 | Outpatient (CLI) | payer MEDICARE, OTHER, SELFPAY ==
--- NOTE | 2022-11-11 14:21 | US_ITS ---
PROCEDURE: Ultrasound guided paracentesis. DATE OF EXAMINATION: November 11, 2022.. INDICATION: Male, 77 years old. Ascites. PHYSICIAN: Manuelito Mathews M.D. TECHNIQUE: The risks, benefits, and alternatives to the procedure were explained to the patient. The specific risks of bleeding, infection, and damage to bowel were detailed and accepted. Witnessed informed consent was obtained. The abdomen was ultrasonographically surveyed. An appropriate pocket of fluid was identified at the right lower quadrant. The skin were cleaned and prepped in the usual sterile fashion. Using ultrasound guidance, the peritoneal cavity was accessed with a 5-Norwegian paracentesis needle/catheter system. The trocar was removed. A total of 8050 ml of tiffany-colored fluid were removed from the peritoneal cavity. The catheter was removed and a sterile dressing was applied. The procedure was well tolerated. US/Paracentesis with US IMPRESSION: Ultrasound guided paracentesis. Electronically Signed: Manuelito Mathews MD at 15:52 EDT ,
[2022-11-11 14:44] VITALS: BP 105/55; BP 117/58; BP 117/59; BP 123/61; PULSE 73; PULSE 74; PULSE 80; PULSE 86; RESP 18; TEMP 36.6; O2SAT 95; O2SAT 96; O2SAT 97
[2022-11-11] MEDS: Lidocaine 2% (20 ml mdv) 20 ML Vial INFILT (14:47)
== END | disposition home or self-care (01) ==
LOC: US 14:20
PROVIDERS: PCP Family Medicine; Referring Provider Internal Medicine; Visit Provider Internal Medicine
DX: R18.8 Other ascites (principal)
CPT/HCPCS: 49083

== ENCOUNTER → 2022-11-27 | Outpatient (CLI) | payer MEDICARE, OTHER, SELFPAY ==
--- NOTE | 2022-11-27 07:40 | US_ITS ---
PROCEDURE: Ultrasound guided paracentesis. DATE OF EXAMINATION: November 27, 2022. INDICATION: Male, 77 years old. Ascites. PHYSICIAN: Manuelito Mathews M.D. TECHNIQUE: The risks, benefits, and alternatives to the procedure were explained to the patient. The specific risks of bleeding, infection, and damage to bowel were detailed and accepted. Witnessed informed consent was obtained. The abdomen was ultrasonographically surveyed. An appropriate pocket of fluid was identified at the left lower quadrant. The skin were cleaned and prepped in the usual sterile fashion. Using ultrasound guidance, the peritoneal cavity was accessed with a 5-Frisian paracentesis needle/catheter system. The trocar was removed. A total of 9050 ml of tiffany-colored fluid were removed from the peritoneal cavity. The catheter was removed and a sterile dressing was applied. The procedure was well tolerated. US/Paracentesis with US IMPRESSION: Ultrasound guided paracentesis. Electronically Signed: Manuelito Mathews MD at 9:58 EDT ,
[2022-11-27 08:26] VITALS: BP 134/61; BP 138/66; BP 148/56; BP 150/65; BP 151/70; PULSE 69; PULSE 83; PULSE 89; PULSE 95; PULSE 96; RESP 16; RESP 18; TEMP 36.9; O2SAT 95; O2SAT 96; O2SAT 97
[2022-11-27] MEDS: Lidocaine 2% (20 ml mdv) 20 ML Vial INFILT (09:20)
--- NOTE | 2022-11-27 10:20 | PRO.PCM_ITS ---
Procedure Report Date of Procedure: 11/27/22 Assessment & Plan Assessment/Plan (1) Ascites: QUALIFIERS: Ascites type: other type Qualified Code(s): R18.8 - Other ascites PLAN: PROCEDURE: Ultrasound guided paracentesis DATE OF EXAMINATION: November 26, 2022 ORDERING PROVIDER: Dr. Elliott INDICATION: Male, 77 years old. Ascites. PROVIDER: IVANA Hidalgo TECHNIQUE: The risks, benefits, and alternatives to the procedure were explained to the patient. The specific risks of bleeding, infection, and damage to bowel were detailed and accepted. Witnessed informed consent was obtained. The abdomen was ultrasonographically surveyed. An appropriate pocket of fluid was identified in the left lower quadrant. The skin was prepped with Betadine sw abs and sterile field established. Using ultrasound guidance, the peritoneal cavity was accessed with a 5-Bahraini paracentesis needle/catheter system. The trocar was removed. A total of 9050 ml of tiffany colored fluid was removed from the peritoneal cavity. The catheter was removed and a sterile dressing was applied. The procedure was well tolerated. IMPRESSION: Successful ultrasound guided paracentesis of left lower quadrant. Procedures Radiology Radiology US Procedures: 66160 Paracentesis
--- NOTE | 2022-11-29 12:23 | CASEMGMT ---
Addendum entered by Michelle Mcfadden 11/29/22 17:22: Call received from patient. Introduced self and role. He was made aware that Dr Rogers did send order in for paracentesis PRN. He states his abdomen is starting to fill up againbut states it's not too bad yet and he would like to schedule an appt w/radiology for next week . Pt made aware JACOB NEWMAN will planning on meeting w/pt in person when he comes in for this appt to discuss further concerns/needs. He states he is interested in getting established w/a new PCP and would like some help w/this at that time. Pt states he has an appt w/Dr Rogers 12/09 that he plans to go to and he will be able to drive himself, stating he will be able to use his motor scooter then. Pt made aware to continue to f/u with him until he gets established w/a new PCP to ensure continuum of care. Pt transferred to JACOB Mora, in radiology for pt to schedule appt. Original Note: JACOB NEWMAN NOTE: JACOB NEWMAN informed that pt interested in establishing w/new PCP. Also made aware pt would benefit from seeing GI specialist, as pt has been coming into [facility] radiology for OP paracentesis monthly, and the amount being removed @ each visit is increasing. JACOB NEWMAN placed call to pt's cell #. No answer. VM left for pt to return call to this JACOB NEWMAN if calling today, or to call TRENT Wadsworth director, if it is on Friday. Phone numbers provided. JACOB NEWMAN also called the 2nd cell # listed on pt's demographics (also same # listed under his daughter, Maryanne). No answer. Salvador IVY RN, CM
== END | disposition home or self-care (01) ==
LOC: US 07:40
PROVIDERS: PCP Family Medicine; Referring Provider Internal Medicine; Visit Provider Internal Medicine
DX: R18.8 Other ascites (principal)
CPT/HCPCS: 49083

== ENCOUNTER 2022-12-03 07:48 | Outpatient (CLI) | payer MEDICARE, OTHER, SELFPAY ==
--- NOTE | 2022-12-03 07:49 | US_ITS ---
PROCEDURE: Ultrasound guided paracentesis. DATE OF EXAMINATION: December 03, 2022. INDICATION: Male, 77 years old. Ascites. PHYSICIAN: Manuelito Mathews M.D. TECHNIQUE: The risks, benefits, and alternatives to the procedure were explained to the patient. The specific risks of bleeding, infection, and damage to bowel were detailed and accepted. Witnessed informed consent was obtained. The abdomen was ultrasonographically surveyed. An appropriate pocket of fluid was identified at the right lower quadrant. The skin were cleaned and prepped in the usual sterile fashion. Using ultrasound guidance, the peritoneal cavity was accessed with a 5-Gibraltarian paracentesis needle/catheter system. The trocar was removed. A total of 8600 ml of tiffany-colored fluid were removed from the peritoneal cavity. The catheter was removed and a sterile dressing was applied. The procedure was well tolerated. US/Paracentesis with US IMPRESSION: Ultrasound guided paracentesis. Electronically Signed: Manuelito Mathews MD at 9:55 EDT ,
[2022-12-03] MEDS: Lidocaine 2% (20 ml mdv) 20 ML Vial INFILT (08:30)
[2022-12-03 08:35] VITALS: BP 131/52; BP 131/60; BP 139/62; PULSE 72; PULSE 82; PULSE 87; RESP 18; RESP 20; RESP 22; TEMP 36.6; O2SAT 100; O2SAT 72
[2022-12-03 09:28] VITALS: BP 120/64; PULSE 68; RESP 16; TEMP 35.9; O2SAT 99; BMI 33.3
[2022-12-03] MEDS: Albumin Human 25% (100 mL) 25 GM/100 ML BAG IV ×2 (10:06→11:29)
--- NOTE | 2022-12-03 10:15 | CASEMGMT ---
Addendum entered and electronically signed by Ermelinda Lester RN 12/03/22 15:20: Call received from [facility] liaison stating she did meet with the pt and educated the pt on how to use the portable O2 tank. Radha stated that pt's daughter was not present during this education. 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 Pt is alert, noted to be hard of hearing and answering most questions appropriately. This RN CM introduced self and role at [facility]. Pt expressed understanding and was agreeable to participating in the assessment. Demographics, care providers, insurance and preferred pharmacy verified. Noted Dx from chart review and discussion with patient: Liver Cirrhosis, HFpEF (EF 65% in February 2022), Pancytopenia, DM, restless leg syndrome PCP: Pt has been seeing Dr. Rogers. States he was last seen a month ago. Pt states he was to see Dr. Rogers's commercial real estate assistant next week on 12/09. Pt requesting to get a new PCP. A list of PCP's was provided to patient. Pt stated he would like to establish with Dr. Bright. Pt provided this RN CM permission to call Dr. Bright's office on his behalf to determine if Dr. Bright was accepting new patients and establish new patient appointment if able. This RN CM contacted Dr. Bright's office, confirmed he was accepting new patients and set pt up for a new patient appointment next Monday 12/11 at 1440. Pt agreeable to this day and time. This RN CM wrote the appointment information on pt's appointment card provided by radiology RNs. Specialists: Dr. Marrufo (podiatry, pt states he sees Dr. 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 Insurance: MCR A/B, Cigna, [facility] benefits Prescription benefit: yes Preferred Pharmacy: [facility] Living Will/HPOA: Pt's daughter states she is pt's HPOA and states pt has a living will. LNOK: Pt's daughter Maryanne Living arrangements: Pt lives in a single story home with 2-3 steps w/HR to enter with his daughter Maryanne. Pt states he is independent with ADLs but does require assistance from his daughter intermittently with dressing/putting on his shoes. Pt's daughter states she works restaurant culinary manager. Transportation: Pt states he drives and his daughter also assists with transportation. Pt states he has a motorized sc[facility] also. He has a lift on his car for the scooter but it had to be taken off d/t to needed car repairs but the lift is being reapplied tomorrow (Fri, 12/04). DME: Pt uses a cane and walker to assist with ambulation outside of the home. Pt has and uses a shower chair and grab bars. Pt states he has a glucometer but doesn't know how to use it and does not check his glucose. Pt states he has an O2 concentrator from [facility] and portable tanks but states he does not know how to use the portable tanks. Pt states he wears the O2 at 2l/min when watching TV and sleeping. Educated pt on need to also wear the O2 when ambulating as this is often when the need for O2 is greatest. Pt nodded but stated the stuff in his home and his dog keep him from being able to wear the O2 continuously. Attempted to understand from pt if he has enough tubing but was unable to obtain a clear answer from the pt. Pt's daughter did not engage in the conversation. This RN CM contacted [facility] who confirmed pt's O2 prescription is for 2l/min continuous. Notified [facility] that pt expressed not knowing how to use the O2 tanks and requested she visit pt in the infusion suite to educate pt on their use which Radha was agreeable to doing. HHC: noted pt has had [facility] in the past SNF: pt states he was at [facility] earlier this year for about a month for rehabilitation post hospital stay. Diet/Fluid Intake: Pt states he drinks a cup of coffee in the morning and a second cup later in the day. Pt indicated he drinks water he obtains from a local spring and may drink two 16oz glasses but this was also unable to be further clarified. Pt denies watching his salt intake. Pt did not answer questions regarding what kinds of food that he eats. Pt repeatedly stated that he eats hard boiled eggs with salt on them. Medications: Pt states he is not currently taking any medications for his DM. Pt requested something to crush up his medications to ease his ability to take them. Encouraged pt to look for a device at the local pharmacy to assist with crushing meds but also cautioned pt to check the medication instructions prior as some medications should not be crushed. Pt reports to only be taking ropinirole for his restless legs. Pt states he was taking 25 medications when at [facility]. Pt denies taking lactulose and states it made him have diarrhea. Educated pt on the rationale for lactulose. Pt did not express understanding. Health Literacy: Low for both pt and pt's daughter. Pt's daughter states she does know nurses at work. This RN TRENT attempted to access pt's past labs via the [employer] site but pt did not appear in the search. Plan: Pt to attend scheduled appointments: December 10 at [address] [facility] December 11 at 2:20pm with Dr. Bright to establish care. JACOB NEWMAN will need to follow-up with pt after his appointment with Dr. Bright to reinforce the determined plan of care and assist with any additional identified needs. Pt will need reinforcement/education on medications, diet, and O2 compliance. Will monitor for referrals to GI/gwot ia/ilo intelligence support and assist with coordinating. Aleta Lester RN CM
[2022-12-03] MEDS: 0.9% Saline Lock 10 ML Syringe IV (13:10)
[2022-12-03 14:06] VITALS: BP 152/70; PULSE 85; RESP 16; TEMP 36; O2SAT 95
== END 2022-12-03 07:49 | disposition home or self-care (01) ==
LOC: US 07:48 → MEDOUTP 08:06
PROVIDERS: PCP Family Medicine; Referring Provider Family Medicine; Visit Provider Family Medicine
DX: K74.60 Unspecified cirrhosis of liver (principal)
CPT/HCPCS: 96365; 96366 ×3; 49083; P9047; A4216

== ENCOUNTER → 2022-12-10 | Outpatient (CLI) | payer MEDICARE, OTHER, SELFPAY ==
--- NOTE | 2022-12-10 08:00 | US_ITS ---
PROCEDURE: Ultrasound guided paracentesis. DATE OF EXAMINATION: December 10, 2022.. INDICATION: Male, 77 years old. Ascites. PHYSICIAN: Manuelito Mathews M.D. TECHNIQUE: The risks, benefits, and alternatives to the procedure were explained to the patient. The specific risks of bleeding, infection, and damage to bowel were detailed and accepted. Witnessed informed consent was obtained. The abdomen was ultrasonographically surveyed. An appropriate pocket of fluid was identified at the right lower quadrant. The skin were cleaned and prepped in the usual sterile fashion. Using ultrasound guidance, the peritoneal cavity was accessed with a 5-Zambian paracentesis needle/catheter system. The trocar was removed. A total of 8950 ml of tiffany-colored fluid were removed from the peritoneal cavity. The catheter was removed and a sterile dressing was applied. The procedure was well tolerated. US/Paracentesis with US IMPRESSION: Ultrasound guided paracentesis. Electronically Signed: Manuelito Mathews MD at 14:16 EDT ,
[2022-12-10 08:16] VITALS: BP 122/64; BP 133/62; BP 134/70; BP 139/62; BP 147/57; PULSE 68; PULSE 74; PULSE 79; PULSE 87; PULSE 88; RESP 16; RESP 18; TEMP 36.9; O2SAT 94; O2SAT 95; O2SAT 96; O2SAT 97
[2022-12-10] MEDS: Lidocaine 2% (20 ml mdv) 20 ML Vial INFILT (08:20)
[2022-12-10 09:33] VITALS: BP 144/57; PULSE 70; RESP 16; TEMP 36.1; O2SAT 99; BMI 32.8
[2022-12-10] MEDS: Albumin Human 25% (100 mL) 25 GM/100 ML BAG IV ×2 (10:00→11:39)
--- NOTE | 2022-12-10 10:19 | PCM.OP.PRO ---
Procedure Report Date of Procedure: 12/10/22 Assessment & Plan Assessment/Plan (1) Ascites: QUALIFIERS: Ascites type: other type Qualified Code(s): R18.8 - Other ascites PLAN: PROCEDURE: Ultrasound guided paracentesis ORDERING PROVIDER: Dr. Rogers INDICATION: Male, 77 years old. Ascites. PROVIDER: IVANA Hidalgo TECHNIQUE: The risks, benefits, and alternatives to the procedure were explained to the patient. The specific risks of bleeding, infection, and damage to bowel were detailed and accepted. Witnessed informed consent was obtained. The abdomen was ultrasonographically surveyed. An appropriate pocket of fluid was identified in the right lower quadrant. The skin was prepped with Betadine swabs and sterile field established. Using ultrasound guidance, the peritoneal cavity was accessed with a 5-Icelandic paracentesis needle/catheter system. The trocar was removed. A total of 8950 ml of clear yellow colored fluid was removed from the peritoneal cavity. The catheter was removed and a sterile dressing was applied. The procedure was well tolerated. IMPRESSION: Successful ultrasound-guided paracentesis. Procedures Radiology Radiology US Procedures: [id number] Paracentesis
[2022-12-10 13:44] VITALS: BP 126/45; PULSE 65; RESP 16; TEMP 36.3; O2SAT 95
== END | disposition home or self-care (01) ==
LOC: US 08:00
PROVIDERS: PCP Family Medicine; Referring Provider Family Medicine; Visit Provider Family Medicine
DX: K74.60 Unspecified cirrhosis of liver (principal)
CPT/HCPCS: 96365; 96366 ×3; 49083; J7050; P9047; A4216

== ENCOUNTER → 2022-12-11 | Outpatient (CLI) | payer MEDICARE, OTHER, SELFPAY ==
[2022-12-11 16:28] LABS: Absolute Lymphocyte Count 1.23 X10^3/uL (0.83-4.51); Basophil# 0.03 X10^3/uL; Basophil% 0.8 % (0-1); Eosinophil# 0.23 X10^3/uL; Eosinophils% 5.9 % (0-5); Lymphocyte # 1.23 X10^3/ul (0.83-4.51); Lymphocyte % 31.3 % (19-41); Mean Corpuscular Hgb 32.8 pg (27.0-32.0); Mean Corpuscular Volume 105.8 fL (80-94); Mean Platelet Vol. 9.1 fl (6.2-12.0); Monocyte# 0.45 X10^3/uL; Monocyte% 11.5 % (0-10); NRBC Flagged by Analyzer 0 % (0-5); Neutrophil # 1.99 X10^3/uL (2.7-7.7); Neutrophil % 50.5 % (47-70); Platelet Count 114 K/mm3 (150-450); RBC Distribution Width CV 13.8 % (11.6-14.6); RBC Distribution Width SD 53.1 fl (35.1-43.9); Red Blood Count 2.74 M/mm3 (4.6-6.2); White Blood Count 3.9 K/mm3 (4.4-11.0)
[2022-12-11 17:48] LABS: Vitamin D,25 Hydroxy 29.1 ng/mL
[2022-12-11 17:56] LABS: ALB/GLOB Ratio 0.8 RATIO (0.9-2.4); AST(SGOT) 38 U/L (15-37); Alanine Aminotransfer ALT/SGPT 25 U/L (16-61); Albumin, Serum 2.9 g/dL (3.2-5.0); Alkaline Phosphatase 109 U/L (45-117); Anion Gap 2 (5-15); BUN 27 mg/dL (7-18); BUN/Creat Ratio 25.5 RATIO (10-20); Chloride 106 mmol/L (98-107); Creatinine, Serum 1.06 mg/dL (0.70-1.30); EST Glomerular Filtration Rate 72 mL/min (>60); Est Glom Filt Rate - Afr Amer 87 mL/min (>60); Globulin 3.6 g/dL (2.2-4.2); Glucose 120 mg/dL (74-106); PSA,Total - Annual Screen 0.02 ng/mL (0.00-4.00); Potassium 4.1 mmol/L (3.5-5.1); Protein, Total 6.5 g/dL (6.4-8.2); Sodium Level 141 mmol/L (136-145)
[2022-12-13 08:13] LABS: Alpha Antitrypsin Serum 152 mg/dL (101-187); HEPATITIS B SURFACE AG Negative (Negative); Hep C Antibodies Non Reactive (Non Reactive); Hepatitis A IgM Antibody Negative (Negative); Hepatitis B Core AB IgM Negative (Negative)
== END | disposition home or self-care (01) ==
LOC: POLAB3 15:50
PROVIDERS: PCP Family Medicine; Visit Provider Family Medicine Geriatric Medicine
DX: Z00.00 Encounter for general adult medical examination without abnormal findings (principal); K74.60 Unspecified cirrhosis of liver; E78.5 Hyperlipidemia, unspecified; G20.A1 Parkinson's disease without dyskinesia, without mention of fluctuations; N40.0 Benign prostatic hyperplasia without lower urinary tract symptoms; E55.9 Vitamin D deficiency, unspecified; Z13.89 Encounter for screening for other disorder; Z12.5 Encounter for screening for malignant neoplasm of prostate
CPT/HCPCS: 36415; 80053; 80074; 82103; 82105; 82306; 84153; 84443; 85025; G0103

== ENCOUNTER → 2022-12-17 | Outpatient (CLI) | payer MEDICARE, OTHER, SELFPAY ==
--- NOTE | 2022-12-13 15:01 | CASEMGMT ---
RN CM: This RN CM followed-up with Dr. Bright for care coordination. Discussed pt's visit on 12/11/[address] Bright to establish care. Per Dr. Bright, pt's poor prognosis was discussed, additional w/u was ordered to evaluated the etiology of pt's cirrhosis, and referral to GI/Dr. Alvarez was made. Order was obtained on this date from Dr. Bright for routine paracenteses with albumin administration as needed. This order was provided to personalized living manager's for future reference. Will continue to follow and assist with care needs as needs identified and pt's disease process progresses. Aleta Lester RN CM
--- NOTE | 2022-12-17 08:09 | US_ITS ---
PROCEDURE: Ultrasound guided paracentesis. DATE OF EXAMINATION: December 17, 2022. INDICATION: Male, 77 years old. Ascites. PHYSICIAN: Manuelito Mathews M.D. TECHNIQUE: The risks, benefits, and alternatives to the procedure were explained to the patient. The specific risks of bleeding, infection, and damage to bowel were detailed and accepted. Witnessed informed consent was obtained. The abdomen was ultrasonographically surveyed. An appropriate pocket of fluid was identified at the left lower quadrant. The skin were cleaned and prepped in the usual sterile fashion. Using ultrasound guidance, the peritoneal cavity was accessed with a 5-Setswana paracentesis needle/catheter system. The trocar was removed. A total of 7700 ml of tiffany-colored fluid were removed from the peritoneal cavity. The catheter was removed and a sterile dressing was applied. The procedure was well tolerated. US/Paracentesis with US IMPRESSION: Ultrasound guided paracentesis. Electronically Signed: Manuelito Mathews MD at 9:59 EDT ,
[2022-12-17 08:27] VITALS: BP 130/70; BP 136/72; PULSE 65; PULSE 73; PULSE 74; RESP 18; TEMP 36.4; O2SAT 97; O2SAT 98
[2022-12-17] MEDS: Lidocaine 2% (20 ml mdv) 20 ML Vial INFILT (08:37)
[2022-12-17] MEDS: 0.9% Saline Lock 10 ML Syringe IV ×2 (09:08→09:48)
[2022-12-17 09:13] VITALS: BP 136/72; BP 146/54; PULSE 66; RESP 18; O2SAT 98
[2022-12-17 09:43] VITALS: BP 142/52; PULSE 65; RESP 18; TEMP 35.8; BMI 29.5
[2022-12-17] MEDS: Albumin Human 25% (100 mL) 25 GM/100 ML BAG IV ×2 (09:49→11:18)
[2022-12-17 13:20] VITALS: BP 135/48; PULSE 69; RESP 16; TEMP 36.1; O2SAT 100
== END | disposition home or self-care (01) ==
LOC: US 08:09
PROVIDERS: PCP Family Medicine; Referring Provider Family Medicine; Visit Provider Family Medicine
DX: K74.60 Unspecified cirrhosis of liver (principal)
CPT/HCPCS: 96365; 96366 ×3; 49083; J7050; P9047; A4216

== ENCOUNTER → 2022-12-24 | Outpatient (CLI) | payer MEDICARE, OTHER, SELFPAY ==
[2022-12-24 08:20] VITALS: BP 141/57; BP 150/73; BP 151/68; PULSE 72; PULSE 80; PULSE 86; RESP 18; RESP 20; TEMP 36.9; O2SAT 96; O2SAT 98
[2022-12-24] MEDS: Albumin Human 25% (50 mL) 12.5 GM/50 ML IV.SOLN IV ×3 (09:50→11:22)
[2022-12-24 09:58] VITALS: BP 146/61; PULSE 74; RESP 16; TEMP 36.3; O2SAT 98; BMI 31.1
[2022-12-24] MEDS: 0.9% NaCl Peripheral Flush Adult/Peds IV (10:02)
[2022-12-24 12:28] VITALS: BP 135/80; PULSE 78; RESP 18; TEMP 36.2; O2SAT 97
--- NOTE | 2022-12-24 14:11 | PRO.PCM_ITS ---
Procedure Report Date of Procedure: 12/24/22 Assessment & Plan Assessment/Plan (1) Ascites: QUALIFIERS: Ascites type: other type Qualified Code(s): R18.8 - Other ascites PLAN: PROCEDURE: Ultrasound guided paracentesis ORDERING PROVIDER: Dr. Hdez INDICATION: Male, 77 years old. Ascites. PROVIDER: IVANA Hidalgo TECHNIQUE: The risks, benefits, and alternatives to the procedure were explained to the patient. The specific risks of bleeding, infection, and damage to bowel were detailed and accepted. Witnessed informed consent was obtained. The abdomen was ultrasonographically surveyed. An appropriate pocket of fluid was identified in the left lower quadrant. The skin was prepped with Betadine swabs and sterile field established. 2% lidocaine was used for local anesthetic. Using ultrasound guidance, the peritoneal cavity was accessed with a 5-Ethiopian paracentesis needle/catheter system. The trocar was removed. A total of 6900 ml of clear, yellow colored fluid was removed from the peritoneal cavity. The catheter was removed and a sterile dressing was applied. The procedure was well tolerated. IMPRESSION: Successful ultrasound guided paracentesis. Procedures Radiology Radiology US Procedures: [id number] Paracentesis
--- NOTE | 2022-12-25 14:18 | CASEMGMT ---
Addendum entered by Michelle Mcfadden 12/25/22 14:27: To clarify, Dr Alvarez's office has not been able to schedule an appt w/him yet since pt has not called them back. Original Note: JACOB NEWMAN NOTE: Call placed to pt to inquire if he has scheduled an appt with Dr Alvarez and to inquire if he has any needs or concerns that CM can assist with. No answer. VM left for pt to return call and phone # provided for call back. Call placed to Dr Alvarez's office. JACOB NEWMAN was informed they did receive the referral and they have reached out to patient but they have not heard back from him yet. Salvador IVY RN, CM
== END | disposition home or self-care (01) ==
PROVIDERS: PCP Family Medicine Geriatric Medicine; Referring Provider Family Medicine; Visit Provider Family Medicine
DX: K74.60 Unspecified cirrhosis of liver (principal)
CPT/HCPCS: 96365; 96366 ×2; 49083; J7050; P9047

== ENCOUNTER → 2022-12-31 | Outpatient (CLI) | payer MEDICARE, OTHER, SELFPAY ==
[2022-12-31] MEDS: Lidocaine 2% (20 ml mdv) 20 ML Vial INFILT (11:29)
[2022-12-31 11:34] VITALS: BP 131/54; BP 133/49; BP 133/59; BP 133/70; PULSE 67; PULSE 71; PULSE 76; PULSE 77; RESP 16; RESP 18; TEMP 36.2; O2SAT 100; O2SAT 98
[2022-12-31] MEDS: Albumin Human 25% (100 mL) 25 GM/100 ML BAG IV (12:34)
--- NOTE | 2022-12-31 12:34 | PCM.OP.PRO ---
Procedure Report Date of Procedure: 12/31/22 Assessment & Plan Assessment/Plan (1) Ascites: QUALIFIERS: Ascites type: other type Qualified Code(s): R18.8 - Other ascites PLAN: PROCEDURE: Ultrasound guided paracentesis ORDERING PROVIDER: Dr. Bright INDICATION: Male, 77 years old. Ascites. PROVIDER: IVANA Hidalgo TECHNIQUE: The risks, benefits, and alternatives to the procedure were explained to the patient. The specific risks of bleeding, infection, and damage to bowel were detailed and accepted. Witnessed informed consent was obtained. The abdomen was ultrasonographically surveyed. An appropriate pocket of fluid was identified in the right lower quadrant. The skin was prepped with Betadine swabs and sterile field established. 2% lidocaine was used for local anesthetic. Using ultrasound guidance, the peritoneal cavity was accessed with a 5-Cape Verdean paracentesis needle/catheter system. The trocar was removed. A total of 5100 ml of clear yellow colored fluid was removed from the peritoneal cavity. The catheter was removed and a sterile dressing was applied. The procedure was well tolerated. IMPRESSION: Successful ultrasound-guided thoracentesis with right lower quadrant access site. Procedures Radiology Radiology US Procedures: [id number] Paracentesis
[2022-12-31] MEDS: 0.9% Saline Lock 10 ML Syringe IV (12:37)
[2022-12-31 12:42] VITALS: BP 159/71; PULSE 63; RESP 16; TEMP 36.2; O2SAT 100; BMI 29.9
[2022-12-31 14:18] VITALS: BP 159/71; PULSE 63; RESP 16; TEMP 36.4; O2SAT 100
== END | disposition home or self-care (01) ==
LOC: US 11:10
PROVIDERS: PCP Family Medicine Geriatric Medicine; Referring Provider Family Medicine; Visit Provider Family Medicine
DX: K74.60 Unspecified cirrhosis of liver (principal); R18.8 Other ascites
CPT/HCPCS: 96365; 96366; 49083; P9047

== ENCOUNTER → 2023-01-06 | Outpatient (CLI) | payer MEDICARE, OTHER, SELFPAY ==
[2023-01-06 09:44] VITALS: BP 130/49; BP 133/53; BP 139/71; BP 145/71; PULSE 68; PULSE 83; PULSE 84; PULSE 86; RESP 18; TEMP 36.6; O2SAT 98; O2SAT 99
[2023-01-06] MEDS: Lidocaine 2% (20 ml mdv) 20 ML Vial INFILT (09:50)
--- NOTE | 2023-01-06 13:13 | PRO.PCM_ITS ---
Procedure Report Date of Procedure: 01/06/23 Assessment & Plan Assessment/Plan (1) Ascites: QUALIFIERS: Ascites type: other type Qualified Code(s): R18.8 - Other ascites PLAN: PROCEDURE: Ultrasound guided paracentesis ORDERING PROVIDER: Dr. Bright INDICATION: Male, 77 years old. Ascites. PROVIDER: IVANA Hidalgo TECHNIQUE: The risks, benefits, and alternatives to the procedure were explained to the patient. The specific risks of bleeding, infection, and damage to bowel were detailed and accepted. Witnessed informed consent was obtained. The abdomen was ultrasonographically surveyed. An appropriate pocket of fluid was identified in the right lower quadrant. The skin was prepped with Betadine swabs and sterile field established. 2% lidocaine was used for local anesthetic. Using ultrasound guidance, the peritoneal cavity was accessed with a 5-Togolese paracentesis needle/catheter system. The trocar was removed. A total of 4600 ml of clear yellow colored fluid was removed from the peritoneal cavity. The catheter was removed and a sterile dressing was applied. The procedure was well tolerated. IMPRESSION: Successful ultrasound-guided paracentesis with right lower quadrant access site. Procedures Radiology Radiology US Procedures: [id number] Paracentesis
== END | disposition home or self-care (01) ==
PROVIDERS: PCP Family Medicine Geriatric Medicine; Referring Provider Family Medicine; Visit Provider Family Medicine
DX: K74.60 Unspecified cirrhosis of liver (principal)
CPT/HCPCS: 49083

== ENCOUNTER → 2023-01-10 | Outpatient (CLI) | payer MEDICARE, OTHER, SELFPAY | END | disposition home or self-care (01) | LOC: LAB 09:16 | PROVIDERS: PCP Family Medicine Geriatric Medicine; Referring Provider Family Medicine Geriatric Medicine; Visit Provider Family Medicine Geriatric Medicine | DX: E03.9 Hypothyroidism, unspecified (principal) | CPT/HCPCS: 36415; 84443 ==

== ENCOUNTER → 2023-01-13 | Outpatient (CLI) | payer MEDICARE, OTHER, SELFPAY ==
--- NOTE | 2023-01-13 09:19 | US_ITS ---
PROCEDURE: Ultrasound guided paracentesis. DATE OF EXAMINATION: January 13, 2023. INDICATION: Male, 77 years old. Ascites. PHYSICIAN: Manuelito Mathews M.D. TECHNIQUE: The risks, benefits, and alternatives to the procedure were explained to the patient. The specific risks of bleeding, infection, and damage to bowel were detailed and accepted. Witnessed informed consent was obtained. The abdomen was ultrasonographically surveyed. An appropriate pocket of fluid was identified at the left lower quadrant. The skin were cleaned and prepped in the usual sterile fashion. Using ultrasound guidance, the peritoneal cavity was accessed with a 5-Pakistani paracentesis needle/catheter system. The trocar was removed. A total of 4650 ml of tiffany color fluid were removed from the peritoneal cavity. The catheter was removed and a sterile dressing was applied. The procedure was well tolerated. US/Paracentesis with US IMPRESSION: Ultrasound guided paracentesis. Electronically Signed: Manuelito Mathews MD at 10:52 EST ,
[2023-01-13 09:41] VITALS: BP 117/60; BP 118/62; BP 126/59; PULSE 70; PULSE 74; PULSE 78; RESP 18; O2SAT 98; O2SAT 99
[2023-01-13] MEDS: Lidocaine 2% (20 ml mdv) 20 ML Vial INFILT (09:45)
== END | disposition home or self-care (01) ==
PROVIDERS: PCP Family Medicine Geriatric Medicine; Referring Provider Family Medicine; Visit Provider Family Medicine
DX: K74.60 Unspecified cirrhosis of liver (principal)
CPT/HCPCS: 49083

== ENCOUNTER → 2023-01-21 | Outpatient (CLI) | payer MEDICARE, OTHER, SELFPAY ==
--- NOTE | 2023-01-21 11:56 | US_ITS ---
PROCEDURE: Ultrasound guided paracentesis. DATE OF EXAMINATION: January 21, 2023. INDICATION: Male, 77 years old. Ascites. PHYSICIAN: Manuelito Mathews M.D. TECHNIQUE: The risks, benefits, and alternatives to the procedure were explained to the patient. The specific risks of bleeding, infection, and damage to bowel were detailed and accepted. Witnessed informed consent was obtained. The abdomen was ultrasonographically surveyed. An appropriate pocket of fluid was identified at the left lower quadrant. The skin were cleaned and prepped in the usual sterile fashion. Using ultrasound guidance, the peritoneal cavity was accessed with a 5-Armenian paracentesis needle/catheter system. The trocar was removed. A total of 5400 ml of tiffany-colored fluid were removed from the peritoneal cavity. The catheter was removed and a sterile dressing was applied. The procedure was well tolerated. US/Paracentesis with US IMPRESSION: Ultrasound guided paracentesis. Electronically Signed: Manuelito Mathews MD at 12:51 EST ,
[2023-01-21 12:09] VITALS: BP 131/54; PULSE 71; RESP 18; O2SAT 99
[2023-01-21] MEDS: Lidocaine 2% (20 ml mdv) 20 ML Vial (12:14)
[2023-01-21 12:15] VITALS: BP 127/63; PULSE 67; RESP 18; O2SAT 99
[2023-01-21] MEDS: Lidocaine 2% (20 ml mdv) 20 ML Vial INFILT (12:16)
[2023-01-21 12:30] VITALS: BP 137/50; PULSE 62; RESP 18; O2SAT 99
--- NOTE | 2023-01-21 12:40 | CT_ITS ---
EXAM: CT CHEST, LUNG CANCER SCREENING WITHOUT INTRAVENOUS CONTRAST CLINICAL INDICATION: TOBACCO ABUSE TECHNIQUE: Helically acquired images were obtained of the chest without intravenous contrast using low dose (LDCT) lung cancer screening protocol. This CT exam was performed using one or more of the following dose reduction techniques: automated exposure control, adjustment of the mA and/or kV according to patient size, and/or use of iterative reconstruction technique. COMPARISON: 02/26/2017 FINDINGS: LUNGS AND PLEURAL SPACES: There is a small 3 mm pleural-based nodules in the right upper lobe seen on series 2 image 68. There is minimal atelectasis at the right lung base. No pneumothorax. HEART: Unremarkable. Heart size is normal. No pericardial effusion. No significant coronary artery calcifications. MEDIASTINUM: Unremarkable. No mediastinal or hilar adenopathy. Esophagus is unremarkable. No hiatal hernia. THYROID: Unremarkable. No thyroid lesions. BONES/JOINTS: Unremarkable. No suspicious lytic or blastic abnormality. VASCULATURE: Unremarkable. Thoracic aorta is non-dilated. LYMPH NODES: Unremarkable. No enlarged lymph nodes. OTHER FINDINGS: 1. There is a focus of groundglass opacity in the right apex that measures 9 mm seen on series [address]/Low Dose CT Lung Screening IMPRESSION: Groundglass density in the left upper lobe with pleural-based nodule right upper lobe. There is minimal right basilar atelectasis. Lung-RADS score: 2 - Benign Appearance or Behavior. Recommend continued annual screening with a low-dose CT (LDCT) in 12 months. Electronically Signed: Ismael Donnelly MD at 23:28 EST ,
[2023-01-21 12:45] VITALS: BP 129/57; PULSE 71; RESP 18; O2SAT 99
[2023-01-21] MEDS: 0.9% NaCl Peripheral Flush Adult/Peds IV ×2 (12:45→13:20)
[2023-01-21 13:09] VITALS: BP 146/67; PULSE 61; RESP 16; TEMP 35.8; O2SAT 100; BMI 29.9
[2023-01-21] MEDS: Albumin Human 25% (100 mL) 25 GM/100 ML BAG IV (13:21)
[2023-01-21] MEDS: Albumin Human 25% (50 mL) 12.5 GM/50 ML IV.SOLN IV (14:59)
[2023-01-21 16:01] VITALS: BP 122/62; PULSE 88; RESP 16
== END | disposition home or self-care (01) ==
PROVIDERS: PCP Family Medicine Geriatric Medicine; Referring Provider Family Medicine Geriatric Medicine; Visit Provider Family Medicine Geriatric Medicine
DX: Z12.2 Encounter for screening for malignant neoplasm of respiratory organs (principal); K74.60 Unspecified cirrhosis of liver; F17.210 Nicotine dependence, cigarettes, uncomplicated
CPT/HCPCS: 96365; 96366 ×2; 49083; 71271; J7050; P9047; A4216

== ENCOUNTER → 2023-01-28 | Outpatient (CLI) | payer MEDICARE, OTHER, SELFPAY ==
[2023-01-28] MEDS: Lidocaine 2% (20 ml mdv) 20 ML Vial INFILT (09:40)
[2023-01-28 09:45] VITALS: BP 127/62; PULSE 77; RESP 16; O2SAT 97
[2023-01-28 09:47] VITALS: BP 134/57; PULSE 84; RESP 16; TEMP 36.3; O2SAT 97
[2023-01-28 10:00] VITALS: BP 135/59; PULSE 83; RESP 16; O2SAT 99
[2023-01-28 10:18] VITALS: BP 138/56; PULSE 89; RESP 16; O2SAT 99
[2023-01-28] MEDS: 0.9% Saline Lock 10 ML Syringe IV (10:44)
[2023-01-28] MEDS: Albumin Human 25% (100 mL) 25 GM/100 ML BAG IV (10:44)
[2023-01-28 10:46] VITALS: BP 146/56; PULSE 76; RESP 16; TEMP 36.3; BMI 30.7
[2023-01-28] MEDS: Albumin Human 25% (50 mL) 12.5 GM/50 ML IV.SOLN IV (12:21)
[2023-01-28 13:20] VITALS: BP 113/50; PULSE 87; RESP 18; TEMP 36.3; O2SAT 95
--- NOTE | 2023-01-28 13:51 | PRO.PCM_ITS ---
Procedure Report Date of Procedure: 01/28/23 Assessment & Plan Assessment/Plan (1) Ascites: QUALIFIERS: Ascites type: other type Qualified Code(s): R18.8 - Other ascites PLAN: PROCEDURE: Ultrasound guided paracentesis ORDERING PROVIDER: Dr. rBight INDICATION: Male, 77 years old. Ascites. PROVIDER: IVANA Hidalgo TECHNIQUE: The risks, benefits, and alternatives to the procedure were explained to the patient. The specific risks of bleeding, infection, and damage to bowel were detailed and accepted. Witnessed informed consent was obtained. The abdomen was ultrasonographically surveyed. An appropriate pocket of fluid was identified in the right lower quadrant. The skin was prepped with Betadine swabs and sterile field established. 2% lidocaine was used for local anesthetic. Using ultrasound guidance, the peritoneal cavity was accessed with a 5-Kittitian paracentesis needle/catheter system. The trocar was removed. A total of 5300 ml of clear yellow colored fluid was removed from the peritoneal cavity. The catheter was removed and a sterile dressing was applied. The procedure was well tolerated. IMPRESSION: Successful ultrasound-guided paracentesis with right lower quadrant access site. Procedures Radiology Radiology US Procedures: [id number] Paracentesis
== END | disposition home or self-care (01) ==
LOC: US 08:24
PROVIDERS: PCP Family Medicine Geriatric Medicine; Referring Provider Family Medicine Geriatric Medicine; Visit Provider Family Medicine Geriatric Medicine
DX: K74.60 Unspecified cirrhosis of liver (principal)
CPT/HCPCS: 96365; 96366 ×2; 49083; P9047; A4216

== ENCOUNTER → 2023-02-04 | Outpatient (CLI) | payer MEDICARE, OTHER, SELFPAY ==
[2023-02-04 09:51] VITALS: BP 122/60; PULSE 90; RESP 16; TEMP 36.3; O2SAT 96
[2023-02-04 10:00] VITALS: BP 122/65; PULSE 89; RESP 16; O2SAT 95
[2023-02-04 10:15] VITALS: BP 148/66; PULSE 81; RESP 16; O2SAT 96
[2023-02-04 10:30] VITALS: BP 147/61; PULSE 80; RESP 16; O2SAT 98
[2023-02-04] MEDS: 0.9% NaCl Peripheral Flush Adult/Peds IV (10:48)
[2023-02-04 10:51] VITALS: BP 136/67; PULSE 72; RESP 16; TEMP 36.3; O2SAT 100; BMI 30.4
[2023-02-04] MEDS: Albumin Human 25% (100 mL) 25 GM/100 ML BAG IV (10:56)
--- NOTE | 2023-02-04 10:59 | PRO.PCM_ITS ---
Procedure Report Date of Procedure: 02/04/23 Assessment & Plan Assessment/Plan (1) Ascites: QUALIFIERS: Ascites type: other type Qualified Code(s): R18.8 - Other ascites PLAN: PROCEDURE: Ultrasound guided paracentesis ORDERING PROVIDER: Dr. Bright INDICATION: Male, 77 years old. Ascites. PROVIDER: IVANA Hidalgo TECHNIQUE: The risks, benefits, and alternatives to the procedure were explained to the patient. The specific risks of bleeding, infection, and damage to bowel were detailed and accepted. Witnessed informed consent was obtained. The abdomen was ultrasonographically surveyed. An appropriate pocket of fluid was identified in the right lower quadrant. The skin was prepped with Betadine swabs and sterile field established. 2% lidocaine was used for local anesthetic. Using ultrasound guidance, the peritoneal cavity was accessed with a 5-Greenlandic paracentesis needle/catheter system. The trocar was removed. A total of 7100 ml of clear yellow colored fluid was removed from the peritoneal cavity. The catheter was removed and a sterile dressing was applied. The procedure was well tolerated. IMPRESSION: Successful ultrasound-guided paracentesis with right lower quadrant access site. Procedures Radiology Radiology US Procedures: [id number] Paracentesis
[2023-02-04] MEDS: Albumin Human 25% (50 mL) 12.5 GM/50 ML IV.SOLN IV (12:18)
[2023-02-04 13:21] VITALS: BP 146/56; PULSE 87; RESP 16; TEMP 36.8; O2SAT 97
--- NOTE | 2023-02-07 14:28 | CASEMGMT ---
RN CM: This RN CM attempted to contact pt via phone on this date to discuss any change in ability to care for self or increased need for assistance at home. Identifying voicemail received and message left requesting a return call. Aleta Lester RN ACM
== END | disposition home or self-care (01) ==
LOC: US 09:36
PROVIDERS: PCP Family Medicine Geriatric Medicine; Referring Provider Family Medicine Geriatric Medicine; Visit Provider Family Medicine Geriatric Medicine
DX: K74.60 Unspecified cirrhosis of liver (principal)
CPT/HCPCS: 96365; 96366 ×2; 49083; J7050; P9047

== ENCOUNTER → 2023-02-11 | Outpatient (CLI) | payer MEDICARE, OTHER, SELFPAY ==
--- NOTE | 2023-02-11 09:34 | US_ITS ---
EXAM: US Abdomen Limited (quadrant) HISTORY: ACITES SURVEY COMPARISON: None FINDINGS: Limited four-quadrant abdominal ultrasound shows anechoic ascites in all 4 quadrants. US/Abdomen Limited IMPRESSION: Anechoic ascites noted in all 4 quadrants of the abdomen. Electronically Signed: Cl Goldberg MD at 11:55 EST ,
[2023-02-11 09:47] VITALS: BP 138/76; PULSE 84; RESP 18; O2SAT 100
== END | disposition home or self-care (01) ==
PROVIDERS: PCP Family Medicine Geriatric Medicine; Referring Provider Family Medicine Geriatric Medicine; Visit Provider Family Medicine Geriatric Medicine
DX: K74.60 Unspecified cirrhosis of liver (principal)
CPT/HCPCS: 76705

== ENCOUNTER → 2023-02-14 | Outpatient (CLI) | payer MEDICARE, OTHER, SELFPAY ==
[2023-02-14 08:15] VITALS: BP 122/56; PULSE 85; RESP 16; TEMP 36.2; O2SAT 96
[2023-02-14] MEDS: Lidocaine 2% (20 ml mdv) 20 ML Vial INFILT (08:20)
[2023-02-14 08:30] VITALS: BP 128/56; PULSE 78; RESP 18; O2SAT 97
--- OUTSIDE RECORDS SUMMARY | 2023-02-14 08:30 | XMS RPT_ITS | CCD ---
Author Name Unknown Address [address] [place] [address] Organization [facility] Care Team Providers Care Residential Care Officer Name Role Phone SaranyaRadha blanco E Unavailable Ming Garrido Unavailable Physical [facility], [facility] Unavailable Bebeto Marrufo Unavailable [phone] Ryan Shine Unavailable Matheus Mills Unavailable Darrian Martin Unavailable [phone] Mansi Sanabria Unavailable Darrian Martin Unavailable [phone] Eboni Cisse Unavailable Martinez Srinivasan Unavailable Deana Moreland Unavailable Unavailable Kerri Ferreira Unavailable Unavailable Anastasiia Norwood Unavailable Unavailable Unavailable Unavailable Greyson Vazquez MD Unavailable Luke Barger MD Primary Care Provider Luke Barger MD Primary Care Provider Luke Barger MD Primary Care Provider Luke Barger MD Primary Care Provider LUKE BARGER Attending Unavailable LUKE BARGER Primary Care Unavailable LUKE BARGER Primary Care Unavailable BANDAR CARDONA Attending Unavailable LUKE BARGER Attending Unavailable LUKE BARGER Primary Care Unavailable LUKE BARGER Referring Unavailable LUKE BARGER Primary Care Unavailable LUKE BARGER Attending Unavailable LUKE BARGER Primary Care Unavailable LUKE BARGER Primary Care Unavailable LUKE BARGER Referring Unavailable Allergies Allergy Classification Reported Allergen(s) Allergy Type Date of Onset Reaction(s) Facility (20 sources) Aloe vera preparation; Translations: [ALOE VERA] Drug Allergy 02-24-2014 Rash [facility] (20 sources) Diclofenac; Translations: [DICLOFENAC] Drug Allergy 02-28-2011 Intolerance [facility] Medications Current Medications Medication Drug Class(es) Dates Sig (Normalized) Sig (Original) [id number] 200 actuat albuterol 0.09 mg/actuat metered dose inhaler (9 sources) beta2-Adrenergic Agonist Start: 11-19-2019 End: 09-04-2021 take 2 puff(s) by inhalation every four hours as needed for wheezing albuterol HFA (PROVENTIL HFA, VENTOLIN HFA) 90 mcg/actuation inhaler Indications: Chronic obstructive pulmonary disease, unspecified COPD type (HCC) Inhale 2 Puffs as instructed every 4 hours as needed for Wheezing/Shortness of Breath. 6.7 g 5 11/19/2019 09/04/2021 Discontinued Completed/Discontinued Medications Medication Drug Class(es) Dates Sig (Normalized) Sig (Original) amLODIPine 2.5 mg oral tablet (1 source) Dihydropyridine Calcium Channel Johanna Start: 07-18-2017 End: 12-08-2017 take 1 tablet by mouth once daily AmLODIPine Besylate 2.5 MG Oral Tablet 1 (one) Tablet daily for 0 days Quantity: 90 {Tablet} Refills: 4 Ordered: 08-Dec-2017 Radha Torres CNP, CNP, Mary E Start : 18-Jul-2017 End : 08-Dec-2017 Inactive atenolol 25 mg oral tablet (2 sources) beta-Adrenergic Johanna Start: 09-06-2015 End: 09-12-2015 take 1 tablet by mouth once daily Atenolol 25 MG Oral Tablet 1 (one) Tablet qd for 90 days Quantity: 90 {Tablet} Refills: 1 Ordered: 12-Sep-2015 Anastasiia Norwood LPN Start : 06-Sep-2015 End : 12-Sep-2015 Discontinued Problems Active Problems Problem Classification Problem Date Documented Da te Episodic/Chronic Anxiety disorders (20 sources) Anxiety disorder; Translations: [Anxiety disorder, unspecified] Onset: 12-16-2014 01-13-2018 Chronic Past or Other Problems Problem Classification Problem Date Documented Da te Episodic/Chronic Allergic reactions (20 sources) Eczema; Translations: [Dermatitis, unspecified] Onset: 10-02-2014 01-13-2018 Episodic Diabetes mellitus without complication (2 sources) Diabetes mellitus without complication External cause codes: Fall (1 source) Accidental fall ; Translations: [Fall, accidental] 01-13-2018 Results Test Name Value Interpretation Reference Range Facil ity Vital Signs Date Time Vital Sign Value Performing Clinician Facility 10-14-2022 18:04-0400 Body weight 88.91 kg Luke Barger MD Work Phone: [facility] 10-14-2022 18:04-0400 Diastolic blood pressure 80 mm[Hg] Luke Barger MD Work Phone: [facility] 10-14-2022 18:04-0400 Heart rate 72 /min Luke Barger MD Work Phone: [facility] 10-14-2022 18:04-0400 Respiratory rate 18 /min Luke Barger MD Work Phone: [facility] 10-14-2022 18:04-0400 Systolic blood pressure 130 mm[Hg] Luke Barger MD Work Phone: [facility] 05-09-2022 10:11-0400 Body weight 85.19 kg Luke Barger MD Work Phone: [facility] 05-09-2022 10:11-0400 Diastolic blood pressure 64 mm[Hg] Luke Barger MD Work Phone: [facility] 05-09-2022 10:11-0400 Heart rate 76 /min Luke Barger MD Work Phone: [facility] 05-09-2022 10:11-0400 Respiratory rate 20 /min Luke Barger MD Work Phone: [facility] 05-09-2022 10:11-0400 SaO2% (BldA) [Mass fraction] 99 % Luke Barger MD Work Phone: [facility] 05-09-2022 10:11-0400 Systolic blood pressure 130 mm[Hg] Luke Barger MD Work Phone: [facility] 01-24-2022 08:07-0500 Body temperature 98.2 [degF] Luke Barger MD Work Phone: [facility] 01-24-2022 08:07-0500 Body weight 105.69 kg Luke Barger MD Work Phone: [facility] 01-24-2022 08:07-0500 Diastolic blood pressure 90 mm[Hg] Luke Barger MD Work Phone: [facility] 01-24-2022 08:07-0500 Heart rate 78 /min Luke Barger MD Work Phone: [facility] 01-24-2022 08:07-0500 Respiratory rate 20 /min Luke Barger MD Work Phone: [facility] 01-24-2022 08:07-0500 SaO2% (BldA) [Mass fraction] 94 % Luke Barger MD Work Phone: [facility] 01-24-2022 08:07-0500 Systolic blood pressure 150 mm[Hg] Luke Barger MD Work Phone: [facility] 12-02-2021 12:17-0400 Body temperature 97.59 [degF] Felicita Celsa BEDSPREAD CUTTER HAND.PHYSICIAN PRACTICE ADMINISTRATOR Work Phone: [facility] 12-02-2021 12:17-0400 Body weight 99.79 kg Felicita Celsa BEDSPREAD CUTTER HAND.PHYSICIAN PRACTICE ADMINISTRATOR Work Phone: [facility] 12-02-2021 12:17-0400 Diastolic blood pressure 76 mm[Hg] Felicita Celsa BEDSPREAD CUTTER HAND.PHYSICIAN PRACTICE ADMINISTRATOR Work Phone: [facility] 12-02-2021 12:17-0400 Heart rate 94 /min Felicita Celsa BEDSPREAD CUTTER HAND.PHYSICIAN PRACTICE ADMINISTRATOR Work Phone: [facility] 12-02-2021 12:17-0400 Respiratory rate 21 /min Felicita Celsa BEDSPREAD CUTTER HAND.PHYSICIAN PRACTICE ADMINISTRATOR Work Phone: [facility] 12-02-2021 12:17-0400 SaO2% (BldA) [Mass fraction] 95 % Felicita Celsa BEDSPREAD CUTTER HAND.PHYSICIAN PRACTICE ADMINISTRATOR Work Phone: [facility] 12-02-2021 12:17-0400 Systolic blood pressure 182 mm[Hg] Felicita Celsa BEDSPREAD CUTTER HAND.PHYSICIAN PRACTICE ADMINISTRATOR Work Phone: [facility] 11-15-2021 18:44-0400 Body temperature 97.2 [degF] Carmen Praisler-Wood BEDSPREAD CUTTER HAND.PHYSICIAN PRACTICE ADMINISTRATOR Work Phone: [facility] 11-15-2021 18:44-0400 Body weight 96.07 kg Carmen Praisler-Wood BEDSPREAD CUTTER HAND.PHYSICIAN PRACTICE ADMINISTRATOR Work Phone: [facility] 11-15-2021 18:44-0400 Diastolic blood pressure 78 mm[Hg] Carmen Praisler-Wood BEDSPREAD CUTTER HAND.PHYSICIAN PRACTICE ADMINISTRATOR Work Phone: [facility] 11-15-2021 18:44-0400 Heart rate 79 /min Carmen Praisler-Wood BEDSPREAD CUTTER HAND.PHYSICIAN PRACTICE ADMINISTRATOR Work Phone: [facility] 11-15-2021 18:44-0400 Respiratory rate 18 /min Carmen Praisler-Wood BEDSPREAD CUTTER HAND.PHYSICIAN PRACTICE ADMINISTRATOR Work Phone: [facility] 11-15-2021 18:44-0400 SaO2% (BldA) [Mass fraction] 97 % Carmen Praisler-Wood BEDSPREAD CUTTER HAND.PHYSICIAN PRACTICE ADMINISTRATOR Work Phone: [facility] 11-15-2021 18:44-0400 Systolic blood pressure 156 mm[Hg] Carmen Praisler-Wood BEDSPREAD CUTTER HAND.PHYSICIAN PRACTICE ADMINISTRATOR Work Phone: [facility] 10-17-2021 09:59-0400 Diastolic blood pressure 71 mm[Hg] Geovanny Baca MD Work Phone: [facility] 10-17-2021 09:59-0400 Heart rate 65 /min Geovanny Baca MD Work Phone: [facility] 10-17-2021 09:59-0400 Respiratory rate 28 /min Geovanny Baca MD Work Phone: [facility] 10-17-2021 09:59-0400 SaO2% (BldA) [Mass fraction] 99 % Geovanny Baca MD Work Phone: [facility] 10-17-2021 09:59-0400 Systolic blood pressure 166 mm[Hg] Geovanny Baca MD Work Phone: [facility] 10-17-2021 09:45-0400 Body temperature 98.6 [degF] Geovanny Baca MD Work Phone: [facility] 10-05-2021 08:45-0400 Body height 166.4 cm Pacc 1 Work Phone: [facility] 10-05-2021 08:45-0400 Body temperature 97 [degF] Pacc 1 Work Phone: [facility] 10-05-2021 08:45-0400 Body weight 97.52 kg Pacc 1 Work Phone: [facility] 10-05-2021 08:45-0400 Diastolic blood pressure 68 mm[Hg] Pacc 1 Work Phone: [facility] 10-05-2021 08:45-0400 Heart rate 67 /min Pacc 1 Work Phone: [facility] 10-05-2021 08:45-0400 Respiratory rate 16 /min Pacc 1 Work Phone: [facility] 10-05-2021 08:45-0400 SaO2% (BldA) [Mass fraction] 93 % Pacc 1 Work Phone: [facility] 10-05-2021 08:45-0400 Systolic blood pressure 134 mm[Hg] Pacc 1 Work Phone: [facility] 09-04-2021 13:16-0400 Body height 167.6 cm Geovanny Baca MD Work Phone: [facility] 07-19-2022 13:16-0400 Body temperature 97 [degF] Geovanny Baca MD Work Phone: [facility] 09-04-2021 13:16-0400 Body weight 96.62 kg Geovanny Baca MD Work Phone: [facility] 09-04-2021 13:16-0400 Diastolic blood pressure 62 mm[Hg] Geovanny Baca MD Work Phone: [facility] 09-04-2021 13:16-0400 Heart rate 99 /min Geovanny Baca MD Work Phone: [facility] 09-04-2021 13:16-0400 SaO2% (BldA) [Mass fraction] 93 % Geovanny Baca MD Work Phone: [facility] 09-04-2021 13:16-0400 Systolic blood pressure 156 mm[Hg] Geovanny Baca MD Work Phone: [facility] 09-04-2021 08:43-0400 Body weight 97.52 kg Luke Barger MD Work Phone: [facility] 09-04-2021 08:43-0400 Diastolic blood pressure 74 mm[Hg] Luke Barger MD Work Phone: [facility] 09-04-2021 08:43-0400 Heart rate 62 /min Luke Barger MD Work Phone: [facility] 09-04-2021 08:43-0400 Respiratory rate 16 /min Luke Barger MD Work Phone: [facility] 09-04-2021 08:43-0400 Systolic blood pressure 138 mm[Hg] Luke Barger MD Work Phone: [facility] 07-12-2021 14:22-0400 Body height 169 cm Filomena Allen BEDSPREAD CUTTER HAND.PHYSICIAN PRACTICE ADMINISTRATOR Work Phone: [facility] 07-12-2021 14:22-0400 Body weight 102.06 kg Filomena Allen BEDSPREAD CUTTER HAND.PHYSICIAN PRACTICE ADMINISTRATOR Work Phone: [facility] 07-12-2021 14:22-0400 Diastolic blood pressure 70 mm[Hg] Filomena Allen BEDSPREAD CUTTER HAND.PHYSICIAN PRACTICE ADMINISTRATOR Work Phone: [facility] 07-12-2021 14:22-0400 Heart rate 65 /min Filomenajuventino Allen BEDSPREAD CUTTER HAND.PHYSICIAN PRACTICE ADMINISTRATOR Work Phone: [facility] 07-12-2021 14:22-0400 Respiratory rate 16 /min Filomenajuventino Allen BEDSPREAD CUTTER HAND.PHYSICIAN PRACTICE ADMINISTRATOR Work Phone: [facility] 07-12-2021 14:22-0400 SaO2% (BldA) [Mass fraction] 95 % Filomena Tiffany BEDSPREAD CUTTER HAND.PHYSICIAN PRACTICE ADMINISTRATOR Work Phone: [facility] 07-12-2021 14:22-0400 Systolic blood pressure 160 mm[Hg] Filomenajuventino Allen BEDSPREAD CUTTER HAND.PHYSICIAN PRACTICE ADMINISTRATOR Work Phone: [facility] 01-13-2018 13:06-0500 BMI (Body Mass Index) 35.7 kg/m2 [facility] Work Phone: 01-13-2018 13:06-0500 Body Temperature 98.7 [degF] [facility] Work Phone: Encounters Encounter Date Encounter Type Care Provider Facility Start: 12-24-2022 Telephone encounter Luke burris MD Work Phone: [facility] Procedures Date Procedure Procedure Detail Performing Clinician Start: 04-25-2022 End: 04-25-2022 Computerized ophthalmic imaging retina Bandar Cardona OD Work Phone: Start: 01-24-2022 INFLUENZA SEASONAL QUADRIVALENT HIGH DOSE AGE 65+ Luke Barger MD Work Phone: Start: 10-17-2021 Colonoscopy flx dx w/collj spec when pfrmd Geovanny aBca MD Work Phone: Start: 10-17-2021 End: 10-17-2021 Gluc bld gluc mntr dev cleared fda spec home use Richard Agee BEDSPREAD CUTTER HAND.TRAFFIC MANAGER Work Phone: Start: 10-17-2021 Colonoscopy Carmen Rock BEDSPREAD CUTTER HAND.PHYSICIAN PRACTICE ADMINISTRATOR Work Phone: Start: 07-12-2021 Adult depression screening assessment Filomena Allen BEDSPREAD CUTTER HAND.PHYSICIAN PRACTICE ADMINISTRATOR Work Phone: Start: 07-21-2019 End: 07-21-2019 Blood pressure screening not performed - reason not given Greyson Vazquez MD Work Phone: Start: 07-21-2019 End: 07-21-2019 BMI documented as above normal parameters - follow-up documented Greyson Vazquez MD Work Phone: Start: 07-21-2019 End: 07-21-2019 Documentation of current medications Greyson Vazquez MD Work Phone: Start: 07-21-2019 End: 07-21-2019 Pain assessment documented as positive - follow-up documented Greyson Vazquez MD Work Phone: Start: 07-21-2019 End: 07-21-2019 Tobacco non-user Greyson Vazquez MD Work Phone: Start: 05-22-2018 Adult depression screening assessment Adolfo Ryder BEDSPREAD CUTTER HAND.PHYSICIAN PRACTICE ADMINISTRATOR Work Phone: Start: 01-09-2018 End: 01-09-2018 Emergency Department Summary Comments: See Note; NOTES: [facility] Medical Records Department [address] [place] [id number] Emergency Department Summary 01/09/18 0645 MR#: [id number] Acct: [id number] Name: RICHARD VARGAS Rep #: [id number] : 1945 72 From: Ermelinda Deng MD PCP: Radha Torres NP Status: REG ER ADDENDUM by Misael Damon MD on 01/09/18 at 0822 The head showed nothing acute. Discussed with the hospitalist. Patient will be admitted for his blunt head injury dizziness lightheaded episodes. Date Misael Damon MD cc: Radha Torres NP * Addendum - ER Visit Summary Date of Service: 01/09/18 Chief Complaint: Dizziness History of Present Illness: The patient is a 72 M who presents for dizziness since yesterday morning. Patient got up and was using the bathroom, and fell. He states he got dizzy prior to falling. He thinks he was sitting on the toilet when it occurred, and there is question whether he actually had a syncopal episode. Patient states he did not feel well the rest of the day, with a headache, continued dizziness and felt tired. He stayed in bed and slept most of the day. Whenever he has gotten out of bed he has to hold onto the wall for balance. He denies any chest pain, shortness of breath, abdominal pain, nausea or vomiting, vision changes, fever. He denies prior symptoms. He has a history of Parkinson's disease, diabetes and COPD. He has had no medication changes for the last 2 months. He was weaned off of benzodiazepines, with the last dose a couple months ago. He denies alcohol use. Physical Examination: Vital signs: afebrile, hemodynamically stable, no hypoxia on room air General: well nourished, well developed, in no distress, lying in bed Skin: warm, dry, no rash, no pallor HEENT: normocephalic and atraumatic no scalp tenderness or soft tissue injuries noted; PERRL, EOMI, no visual field deficits, no nystagmus, moist mucous membranes Cardiovascular: regular rate and rhythm without murmurs, no peripheral edema, 2+ pulses all distal extremities Respiratory: No increased work of breathing, lungs are clear to auscultation bilaterally, no rales, rhonchi or wheezing Abdominal: Abdomen is soft, nontender with normoactive bowel sounds, no guarding or rebound, no masses MSK: Moves all extremities, no deformities, normal strength Neuro: Awake and alert, oriented 4. No facial droop, sensation and motor function intact and symmetric, normal finger to nose and heel to cano. NIH = 0 Test Results: Abnormal Lab Results WBC RBC Hgb Hct MCV MCH MCHC RDW RDW Differential Medications Given Sodium Chloride () 1,000 mls @ 250 mls/hr IV .Q4H ONE Stop: 01/09/18 10:41 Last Admin: 01/09/18 06:53 Dose: 250 mls/hr Emergency Department Course and Treatment: Patient presents with dizziness since yesterday morning, which resulted in a fall. Patient is having difficulty describing his symptoms, but it sounds most consistent with imbalance/disequilibrium. Chart review shows patient had a prior visit for a fall in the bathroom due to his Parkinson's disease, however patient has had persistent symptoms since onset yesterday morning, concerning for a cause other than loss of balance due to Parkinson's or orthostatic hypotension. Workup performed to look for underlying cause, including possibility of central vertigo, such as cerebellar stroke. CT scan of the head showed no intracranial hemorrhage. Labs were remarkable for chronic thrombocytopenia, elevated creatinine consistent with dehydration. No significant anemia. Opponent negative and EKG showed a sinus rhythm with no ischemic changes or ectopy. Patient would benefit from admission for further evaluation of cause of his acute onset and persistent imbalance since yesterday. Once remaining labs and imaging return, patient will be admitted for further workup. Treatment Plan: [] Disposition: [] Impression: dysequilibrium, history of Parkinson's disease This note was generated with [employer] dictation software. It may contain incorrect words, spelling, and punctuation that were not noted in review of the chart prior to signing ED Disposition - Plan for ED Patient: Chief Complaint: Syncope Referrals: Radha Torres, MANUFACTURING QUALITY TECHNICIAN-C [Primary Care Provider] - What to do if you have Problems For any increased pain, shortness of breath, bleeding, nausea or vomiting, chest pain, or any unexpected problems, contact your Primary Care Provider. Call [facility] ([phone]) or report to the closest Emergency Room. Call 911 if necessary. 01/09/18 0753 <Electronically signed by Ermelinda Deng MD> Date Ermelinda Deng MD Cosigner Signature (If Indicated): Date CC: Radha Torres Start: 01-09-2018 End: 01-09-2018 Brain/Head without Contrast Comments: See Note; NOTES: [facility] Imaging Services [address] [place] [address] Brain/Head without Contrast MR#: [id number] Acct: [id number] Name: RICHARD VARGAS Rep #: [id number] : 1945 M 72 From: James Faustin MD PCP: Radha Torres NP Status: REG ER Study: Brain/Head without Contrast Date of Exam: 01/09/18 Exam# [id number] Ordering Dr: Ermelinda Deng MD STUDY: CT BRAIN WITHOUT CONTRAST REASON FOR EXAM: Male, 72 years old. Dizziness RADIATION DOSAGE (If Supplied By Facility): CTDIvol = ( 44.99 ) mGy, DLP = ( 832.67 ) mGycm TECHNIQUE: Transaxial CT imaging of the brain was performed without administration of intravenous contrast material. Individualized dose optimization techniques were used for this CT. COMPARISON: None. FINDINGS: Normal soft tissue structures. Normal calvarium. There is mild cerebral atrophy with widening of the extra-axial spaces and ventricular dilatation. There are areas of decreased attenuation within the white matter tracts of the supratentorial brain, consistent with microvascular disease changes. Normal basal ganglia and thalami. Normal brainstem. Normal cerebellum. There is no intracranial hemorrhage. There are no findings of an acute ischemic infarction. Normal visualized paranasal sinuses. CT/Brain/Head without Contrast IMPRESSION: Chronic involutional changes of the brain. Electronically Signed: James Faustin MD at 7:55 EST Tel , Service support , CC: Radha Torres NP; Ermelinda Deng MD Hood Fitter: Signed Radha Torres Start: 01-09-2018 End: 01-09-2018 Chest 1 View Comments: See Note; NOTES: [facility] Imaging Services [address] [place] [address] Chest 1 View MR#: [id number] Acct: [id number] Name: RICHARD VARGAS Rep #: [id number] : 1945 M 72 From: James Faustin MD PCP: Radha Torres NP Status: REG ER Study: Chest 1 View Date of Exam: 01/09/18 Exam# [id number] Ordering Dr: Ermelinda Deng MD STUDY: X-RAY CHEST REASON FOR EXAM: Male, 72 years old. Chest pain TECHNIQUE: Single AP portable view of the chest. COMPARISON: None. FINDINGS: The lungs are clear and expanded. There is no demonstrated pleural abnormality. Normal size heart. Normal mediastinum and kenny. Normal visualized pulmonary arteries. Normal visualized aortic arch and descending thoracic aorta. Normal visualized thoracic spine. There is degenerative osteoarthritis of the bilateral shoulders. There is no demonstrated abnormality of the visualized soft tissue structures of the upper abdomen. RAD/Chest 1 View IMPRESSION: Degenerative changes, as described above. No demonstrated acute cardiopulmonary process. Electronically Signed: James Faustin MD at 8:08 EST Tel , Service support , CC: Radha Torres NP; Ermelnida Deng MD Hood Fitter: Signed Radha Torres Start: 02-26-2017 End: 02-26-2017 Chest WITH Contrast Comments: See Note; NOTES: [facility] Imaging Services [address] [place] [address] Chest WITH Contrast MR#: [id number] Acct: [id number] Name: RICHARD VARGAS Rep #: [id number] : 1945 M 71 From: Amadeo Dc MD PCP: Cindy Maria DO Status: REG CLI Study: Chest WITH Contrast Date of Exam: 02/26/17 Exam# [id number] Ordering Dr: Cindy Mraia DO STUDY: CT CHEST/THORAX WITH CONTRAST REASON FOR EXAM: Male, 71 years old. Nodules. RADIATION DOSAGE (If Supplied By Facility): CTDIvol = ( 14.52 ) mGy, DLP = ( 557.57 ) mGycm TECHNIQUE: Transaxial imaging was performed following intravenous administration of 100ML ml of Isovue 300 contrast material. Multiplanar coronal and sagittal images were reformatted. Individualized dose optimization techniques were used for this CT. COMPARISON: Portable AP upright chest x-ray September 11, 2015; CTA chest/thorax September 05, 2015 FINDINGS: Calcified 6 mm lateral left upper lobe nodule series 4 image 19) is unchanged. There is a stable cluster of subcentimeter pleural-based densities consistent with scarring along the posterolateral right upper lobe on series 4 images 18-28. Stable 4.5 mm noncalcified nodule seen in the anterior-inferior right middle lobe series 4 image 78, series 601 image 115. Stable 3 mm calcified granuloma in the right lower lobe on series 4 image 51. There is stable mild thickening along the pleural fissure at the right midlung. Normal heart and pericardium. There are calcifications of the coronary arteries. There are stable, benign-appearing right hilar and subcarinal lymph nodes, as well as calcified left hilar lymph nodes. No new adenopathy. Normal enhanced pulmonary arteries. There is atherosclerotic calcification of the aortic arch with tortuosity and elongation of the aortic arch and descending thoracic aorta. 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 Demineralization of the osseous structures. There are stable multi-level degenerative changes and benign Schmorl's nodes of the thoracic spine. There are mild anterior wedging deformities of the T11 and T12 vertebra, while the T9 and T10 vertebra show mild overall loss of height. There is calcification in the T9-10 intervertebral disc space There are occasional calcified granulomata in the spleen. Although not fully included in the [id number], spleen appears upper limits of normal size. CT/Chest WITH Contrast IMPRESSION: 1. Stable calcified and noncalcified granulomata in the lungs, as noted. No acute infiltrate or pleural effusion. 2. Stable, benign-appearing mediastinal and hilar lymph nodes. No new adenopathy. 3. Atherosclerotic calcifications of the coronary arteries and thoracic aortic arch. 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 Electronically Signed: Cl Dc MD at 17:09 EST , Service support , CC: Cindy Maria DO Hood Fitter: Signed Cindy Maria Work Phone: Start: 02-27-2016 End: 02-27-2016 Emergency Department Summary Comments: See Note; NOTES: [facility] Medical Records Department [address] [place] [id number] Emergency Department Summary MR#: [id number] Acct: [id number] Name: RICHARD VARGAS Rep #: [id number] : 1945 70 From: Richard Miranda MD PCP: Piyush Sanabria Status: [facility] ER DATE OF SERVICE: 02/27/2016 CHIEF COMPLAINT: Foot injury. HISTORY OF PRESENT ILLNESS: A 70-year-old male, otherwise healthy, unsure of last tetanus, presents with injury to his left foot. The patient accidentally dropped his knife when he was trying to clean it and it punctured the dorsum of the left foot over the left fifth distal metatarsal. He had immediate pain and bleeding and presented here for further evaluation. Again, he is unsure of his last tetanus, but takes no anticoagulants. PHYSICAL EXAMINATION: VITAL SIGNS: Afebrile. Vitals unremarkable. GENERAL: Exam is relatively unremarkable. EXTREMITIES: The patient has a 1 cm full-thickness laceration to the lateral aspect of the left fifth metatarsal at the distal end. He is able to flex and extend the toe against resistance. Normal capillary refill. Normal pulses. EMERGENCY DEPARTMENT COURSE: Tetanus was updated. The patient's wound was anesthetized with lidocaine. It was irrigated with 250 mL of normal saline. I did explore the wound and there was no evidence of tendinous involvement. It was closed with 3 simple interrupted sutures. The patient tolerated this without issue. Bacitracin dressing was applied along with postop shoe. He will be discharged with wound care. IMPRESSION: A 1 cm left foot laceration with repair. DISPOSITION: Discharge. Richard Miranda MD T: NTS JOB: [id number] 02/27/16 033 <Electronically signed by Richard Miranda MD> Date Richard Miranda MD Cosigner Signature (If Indicated): Date CC: Piyush Sanabria Date Dictated: 02/27/16150 Date Transcribed: 02/27/16150 Hood Fitter: Corey Torres Start: 02-27-2016 End: 02-27-2016 Discharge Instruction Comments: See Note; NOTES: [facility] Medical Records Department [address] [place] [address] Discharge Instruction 02/27/16 0149 MR#: [id number] Acct: [id number] Name: SOHANRICHARD Rep #: [id number] : 1945 70 From: Richard Miranda MD PCP: Piyush Sanabria Status: REG ER ED Disposition - Plan for ED Patient: Chief Complaint: Laceration Instructions: ED Laceration Foot Referrals: Piyush Sanabria [Primary Care Provider] - 10 Day for suture removal What to do if you have Problems For any increased pain, shortness of breath, bleeding, nausea or vomiting, chest pain, or any unexpected problems, contact your Primary Care Provider. Call [facility] ([phone]) or report to the closest Emergency Room. Call 911 if necessary. 02/27/16 0154 <Electronically signed by Richard Miranda MD> Date Richard Ruth MD Cosigner Signature (If Indicated): Date CC: Piyush Torres Start: 11-30-2015 Biopsy of bone marrow Radha Torres Plan of Treatment Date Care Activity Detail Author Start: 07-19-2029 Urine microalbumin profile [facility] Start: 10-17-2026 Colonoscopy COLONOSCOPY [facility] Start: 10-17-2026 COLORECTAL CANCER SCREENING COLORECTAL CANCER SCREENING [facility] Start: 10-15-2023 ANNUAL PCP TEAM CHRONIC DISEASE VISIT ANNUAL PCP TEAM CHRONIC DISEASE VISIT [facility] Start: 05-14-2023 Hemoglobin A1c/Hemoglobin.total in Blood HbA1C [facility] Start: 05-10-2023 ANNUAL PCP TEAM CHRONIC DISEASE VISIT ANNUAL PCP TEAM CHRONIC DISEASE VISIT [facility] Start: 04-26-2023 Hepatitis C antibody, confirmatory test DILATED RETINAL EXAM [facility] Start: 01-24-2023 ANNUAL PCP TEAM CHRONIC DISEASE VISIT ANNUAL PCP TEAM CHRONIC DISEASE VISIT [facility] Start: 11-09-2022 Hemoglobin A1c/Hemoglobin.total in Blood HBA1C [facility] Start: 10-18-2022 Influenza vaccination [facility] Start: 10-14-2022 End: 12-14-2022 CBC panel - Blood by Automated count CBC Lab Routine Essential hypertension Expected: 10/14/2022 (Approximate), Expires: 12/14/2022 [facility] Work Phone: Immunizations Immunization Date Immunization Notes Care Provider Georgina keller 01-24-2022 influenza, high-dose , quadrivalent vaccine (FLUZONE HIGH DOSE QUADRIVALENT) Luke Barger MD Work Phone: [facility] 01-24-2022 influenza virus vaccine, unspecified formulation Filomena Allen BEDSPREAD CUTTER HAND.PHYSICIAN PRACTICE ADMINISTRATOR Work Phone: [facility] 11-19-2019 influenza, high-dose , quadrivalent vaccine (FLUZONE HIGH DOSE QUADRIVALENT) Adolfo Ryder APRN.PHYSICIAN PRACTICE ADMINISTRATOR Work Phone: [facility] 07-20-2019 tetanus toxoid, reduced diphtheria toxoid, and acellular pertussis vaccine, adsorbed Adolfo Caldwellil BEDSPREAD CUTTER HAND.PHYSICIAN PRACTICE ADMINISTRATOR Work Phone: [facility] Work Phone: 11-06-2018 influenza, high dose seasonal, preservative-free Adolfo Rosalio BEDSPREAD CUTTER HAND.PHYSICIAN PRACTICE ADMINISTRATOR Work Phone: [facility] 02-18-2016 tetanus and diphther ia toxoids, adsorbed, preservative free, for adult use (2 Lf of tetanus toxoid and 2 Lf of diphtheria toxoid) [facility] Work Phone: 04-13-2015 pneumococcal conjuga te vaccine, 13 valent Adolfo Rosalio BEDSPREAD CUTTER HAND.PHYSICIAN PRACTICE ADMINISTRATOR Work Phone: [facility] Work Phone: 12-20-2014 influenza, high dose seasonal, preservative-free Adolfo Rosalio BEDSPREAD CUTTER HAND.PHYSICIAN PRACTICE ADMINISTRATOR Work Phone: [facility] 02-17-2014 influenza, seasonal, injectable [facility] Work Phone: 11-01-2013 influenza, seasonal, injectable Adolfo Rosalio BEDSPREAD CUTTER HAND.PHYSICIAN PRACTICE ADMINISTRATOR Work Phone: [facility] 11-01-2013 zoster vaccine, live Adolfo C ecil BEDSPREAD CUTTER HAND.PHYSICIAN PRACTICE ADMINISTRATOR Work Phone: [facility] 11-04-2012 influenza virus vaccine, unspecified formulation Adolfo Rosalio BEDSPREAD CUTTER HAND.PHYSICIAN PRACTICE ADMINISTRATOR Work Phone: [facility] 02-15-2009 pneumococcal polysaccharide vaccine, 23 valent Adolfo Rosalio BEDSPREAD CUTTER HAND.PHYSICIAN PRACTICE ADMINISTRATOR Work Phone: [facility] 12-16-2008 influenza virus vaccine, unspecified formulation Adolfo Rosalio BEDSPREAD CUTTER HAND.PHYSICIAN PRACTICE ADMINISTRATOR Work Phone: [facility] Work Phone: 12-23-2007 influenza virus vaccine, unspecified formulation Adolfo Rosalio BEDSPREAD CUTTER HAND.PHYSICIAN PRACTICE ADMINISTRATOR Work Phone: [facility] Work Phone: 11-21-2005 tetanus toxoid, reduced diphtheria toxoid, and acellular pertussis vaccine, adsorbed Adolfo Rosalio BEDSPREAD CUTTER HAND.PHYSICIAN PRACTICE ADMINISTRATOR Work Phone: [facility] Work Phone: Payers Date Payer Category Payer Medicare MEDICARE MEDICAR E A AND B [id number] 2008-Present [phone] [place] [address] Medicare [id number] 2008 Medicare MEDICARE MEDICAR E A AND B [id number] 2008-Present [phone] [place] [address] Medicare [id number] 2008 Medicare [id number] 2005 Private Health Insurance [employer] PPO [id number] 2005-Present [phone] [address] [place] [address] PPO [id number] 2005 Private Health Insurance [employer]IL[employer] LERNERA PPO [id number] 2005-Present [phone] [address] [place] [address] PPO [id number] 2005 Private Health Insurance [id number] Unknown Social History Date Type Detail Facility Start: 05-09-2022 End: 10-10-2022 Alcohol Use Former smoker [facility] Work Phone: Clinical Notes 06-03-2013 to 12-24-2022 Telephone Encounter - Luke Barger MD - 12/24/2022 5:04 PM ESTTelephone Encounter - Lucretia Arriaza Ma - 12/24/2022 3:44 PM ESTPatient InstructionsLuke Barger MD - 10/14/2022 6:20 PM EDT Note Date & Type Note Facility 12-24-2022 Miscellaneous Notes Noted Luke Barger MD Office received fax for pt's paracentesis. Listed under PCP on study, Dr. Barger is no longer listed as PCP and Dr. Bright is listed. Also see that pt had a Wellness visit with Dr. Bright in Care Everywhere on 12/11/22. Lucretia Arriaza Ma documented in this encounter [facility] 11-27-2022 Miscellaneous Notes TC to Pt on moving appt to an earlier time on 12/09/22. Pt declined due to transportation problems. Pt also stated being in [facility] ER and had fluid drained from abdomin. Offered to move appt up to this week or next. Pt declined, stating He will keep the appt that is scheduled. Luz Sykes LPN documented in this encounter [facility] 10-14-2022 Note HNO ID: [id number] Author: Luke Barger MD Service: ? Author Type: Physician Type: Progress Notes Filed: 10/14/2022 8:23 PM Note Text: Chief Complaint Patient presents with: ER F/U HPI Richard Vargas is a 77 year old male who presents here today for ER Follow Up. Pt states he has not been taking any of his medications. Poor historia;n not sure what he has been taking. Pt here today for a [facility] ED follow up. Pt was started on Lasix 40 mg daily on 10/07/22 due to having issues with urine retention. He still has swelling in his feet and ankles. It does not improve over night. He states he was having some pain in the legs, took some Tylenol which helped. He was in [place] from Feb to Fe after having heart attack. His daughter lives with him. Depression: pt was on lexapro but stated it was stopped while he was in the [place]. He would like to go back on it. He is feeling depressed. Denies SI/HI. He says he has an appt in 2 days with someone at [facility] for his ascites. Pt presented to [facility] ED on 10/04/22 with shortness of breath. [facility] ED visit: HPI History of Present Illness Chief Complaint: Shortness of Breath Informant: patient Onset/Context/Timing Onset: Today Context: gradual Timing: Continuous Quality: Positive for Dyspnea on exertion Worsened by: Exertion Relieved by: Rest Associated Symptoms rhinorrhea, subjective and chills; Negative for cough, post nasal drip, ear pain, fever, sore throat, sweats or clear sputum Chest Pain: Positive for None Narrative Narrative: Patient presents with shortness of breath that became worse today. Patient states it is gradually gotten worse. Patient states his breathing is worse withany exertion. Patient states it is better with rest. Patient has a history of ascites and states that he thinks he needs fluid drawn off of his abdomen. Patient denies any fevers. Patient does admit to some subjective chills. Patient denies any abdominal pain. Patient denies any nausea or vomiting. Patient denies any chest pain. Patient admits to some swelling in his legs. Medical decision making narrative: Differential diagnosis includes congestive heart failure, acute kidney injury, cardiac dysrhythmia, cardiac ischemia, pneumonia, pancreatitis, and coagulopathy. EKG will be obtained to assess for cardiac dysrhythmia and cardiac ischemia. Chest x-ray will be obtained to assess for pneumonia and congestive heart failure. CBC will be obtained to assess for leukocytosis and anemia. Comprehensive metabolic profile will be obtained to assess for hepatic function, renal function, and electrolyte abnormality. Lipase will be obtained to assess for pancreatitis. PT was INR and PTT will be obtained to assess for coagulopathy. Ammonia will be obtained to assess for hepatic encephalopathy. Lab Data Attestation: I reviewed the patient's lab results. Lab results narrative: CBC was reviewed. There is a stable anemia with a hemoglobin of 9.8 and hematocrit of 32.1. PT was INR and PTT were reviewed. Pro time was slightly elevated at 16.5. INR is 1.3. PTT was normal at 33.6. Comprehensive metabolicprofile was reviewed. BUN was slightly increased at 25. Creatinine was normal. Total bilirubin was slightly elevated at 1.3. AST, ALT, and alkaline phosphatase are within normal limits. Ammonia was reviewed and was normal. Lipase was reviewed and was normal. Past medical history, appointments, medications, allergies reviewed. Previous Medical History PAST MEDICAL HISTORY Diagnosis Date Anxiety disorder 12/16/2014 Anxiety disorder in conditions classified elsewhere DEPRESSIVE DISORDER NEC 09/03/2006 Diabetes mellitus type 2, controlled 02/26/2010 Diverticulosis of colon (without mention of hemorrhage) H/O compression fracture of spine 12/16/2014 Hypertension Hypertrophy of testis 09/28/2014 HYPERTROPHY PROSTATE WITH OBST 10/31/2004 Internal hemorrhoids without mention of complication OBESITY NOS 10/31/2004 Periodic limb movement disorder (PLMD) 12/16/2014 RECURR DEPR PSYCHOS-UNSP 10/31/2004 Sciatica 12/09/2006 Skin cancer, basal cell 05/2013 left nose Unspecified hypothyroidism 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 John Previous Surgical History PAST SURGICAL HISTORY Procedure Laterality Date COLONOSCOPY 10/17/2021 repeat in 5 years COLONOSCOPY FLX DX W/COLLJ SPEC WHEN PFRMD 05/06/2001 Colonoscopy COLONOSCOPY FLX DX W/COLLJ SPEC WHEN PFRMD 10/01/2011 repeat 10 years MOHS HEAD/NECK STAGE 1 <=5 Left 06/03/2013 nose SIGMOIDOSCOPY FLX DX W/COLLJ SPEC BR/WA IF PFRMD 01/19/2004 Sigmoidoscopy SKIN BX, 1 LESION 09/18/2021 Upper Back, Shave Biopsy VASECTOMY UNI/BI SPX W/POSTOP SEMEN EXAMS 1978 XCAPSL CTRC RMVL INSJ IO LENS PROSTH W/O ECP Bilateral [facility] Family History FAMILY HISTORY Problem Relation Age of Onset Stroke Mother other (cirrhosis) Father Diabetes Br (more content not included)... [facility] 10-14-2022 Instructions Luke Barger MD - 10/14/2022 6:35 PM EDT Bring your medications with you at your next appointment Get lab work done a few days before your appointment documented in this encounter [facility] 10-14-2022 History of Presen t illness Narrative Chief Complaint Patient presents with: ER F/U HPI Richard Vargas is a 77 year old male who presents here today for ER Follow Up. Pt states he has not been taking any of his medications. Poor historia;n not sure what he has been taking. Pt here today for a [facility] ED follow up. Pt was started on Lasix 40 mg daily on 10/07/22 due to having issues with urine retention. He still has swelling in his feet and ankles. It does not improve over night. He states he was having some pain in the legs, took some Tylenol which helped. He was in [place] from Feb to Mar after having heart attack. His daughter lives with him. Depression: pt was on lexapro but stated it was stopped while he was in [place]. He would like to go back on it. He is feeling depressed. Denies SI/HI. He says he has an appt in 2 days with someone at [facility] for his ascites. Pt presented to [facility] ED on 10/04/22 with shortness of breath. [facility] ED visit: HPI History of Present Illness Chief Complaint: Shortness of Breath Informant: patient Onset/Context/Timing Onset: Today Context: gradual Timing: Continuous Quality: Positive for Dyspnea on exertion Worsened by: Exertion Relieved by: Rest Associated Symptoms rhinorrhea, subjective and chills; Negative for cough, post nasal drip, ear pain, fever, sore throat, sweats or clear sputum Chest Pain: Positive for None Narrative Narrative: Patient presents with shortness of breath that became worse today. Patient states it is gradually gotten worse. Patient states his breathing is worse withany exertion. Patient states it is better with rest. Patient has a history of ascites and states that he thinks he needs fluid drawn off of his abdomen. Patient denies any fevers. Patient does admit to some subjective chills. Patient denies any abdominal pain. Patient denies any nausea or vomiting. Patient denies any chest pain. Patient admits to some swelling in his legs. Medical decision making narrative: Differential diagnosis includes congestive heart failure, acute kidney injury, cardiac dysrhythmia, cardiac ischemia, pneumonia, pancreatitis, and coagulopathy. EKG will be obtained to assess for cardiac dysrhythmia and cardiac ischemia. Chest x-ray will be obtained to assess for pneumonia and congestive heart failure. CBC will be obtained to assess for leukocytosis and anemia. Comprehensive metabolic profile will be obtained to assess for hepatic function, renal function, and electrolyte abnormality. Lipase will be obtained to assess for pancreatitis. PT was INR and PTT will be obtained to assess for coagulopathy. Ammonia will be obtained to assess for hepatic encephalopathy. Lab Data Attestation: I reviewed the patient's lab results. Lab results narrative: CBC was reviewed. There is a stable anemia with a hemoglobin of 9.8 and hematocrit of 32.1. PT was INR and PTT were reviewed. Pro time was slightly elevated at 16.5. INR is 1.3. PTT was normal at 33.6. Comprehensive metabolicprofile was reviewed. BUN was slightly increased at 25. Creatinine was normal. Total bilirubin was slightly elevated at 1.3. AST, ALT, and alkaline phosphatase are within normal limits. Ammonia was reviewed and was normal. Lipase was reviewed and was normal. Past medical history, appointments, medications, allergies reviewed. Previous Medical History PAST MEDICAL HISTORY Diagnosis Date Anxiety disorder 12/16/2014 Anxiety disorder in conditions classified elsewhere DEPRESSIVE DISORDER NEC 09/03/2006 Diabetes mellitus type 2, controlled 02/26/2010 Diverticulosis of colon (without mention of hemorrhage) H/O compression fracture of spine 12/16/2014 Hypertension Hypertrophy of testis 09/28/2014 HYPERTROPHY PROSTATE WITH OBST 10/31/2004 Internal hemorrhoids without mention of complication OBESITY NOS 10/31/2004 Periodic limb movement disorder (PLMD) 12/16/2014 RECURR DEPR PSYCHOS-UNSP 10/31/2004 Sciatica 12/09/2006 Skin cancer, basal cell 05/2013 left nose Unspecified hypothyroidism 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 John Previous Surgical History PAST SURGICAL HISTORY Procedure Laterality Date COLONOSCOPY 10/17/2021 repeat in 5 years COLONOSCOPY FLX DX W/COLLJ SPEC WHEN PFRMD 05/06/2001 Colonoscopy COLONOSCOPY FLX DX W/COLLJ SPEC WHEN PFRMD 10/01/2011 repeat 10 years MOHS HEAD/NECK STAGE 1 <=5 Left 06/03/2013 nose SIGMOIDOSCOPY FLX DX W/COLLJ SPEC BR/WA IF PFRMD 01/19/2004 Sigmoidoscopy SKIN BX, 1 LESION 09/18/2021 Upper Back, Shave Biopsy VASECTOMY UNI/BI SPX W/POSTOP SEMEN EXAMS 1978 XCAPSL CTRC RMVL INSJ IO LENS PROSTH W/O ECP Bilateral [facility] Family History FAMILY HISTORY Problem Relation Age of Onset Stroke Mother other (cirrhosis) Father Diabetes Brother No Ocular Disease No Family History Patient Allergies ALLERGIES Allergen Reactions Aloe Vera Rash Diclofenac Intolerance leg edema Current Medications Current Outpatient Medications on File Prior to Visit Medication Sig furosemide (LASIX) 40 mg tablet Take 1 tablet by mouth once daily. levothyroxine (SYNTHROID) 137 mcg tablet Take 1 tablet by mouth once daily. Take on empty stomach. For Thyroid carbidopa-levodopa (SINEMET 25-100) 25-100 mg per tablet Take 2 tablets by mouth three times daily. midodrine (PROAMITINE) 5 mg tablet Take 1 tablet by mouth twice daily. pantoprazole DR (PROTONIX) 40 mg tablet Take 1 tablet by mouth twice daily. Take on empty stomach, 1/2 hr before meal. rifAXIMin (XIFAXAN) 550 mg tablet Take 1 tablet by mouth twice daily. sucralfate (CARAFATE) 1 gram tablet Take 1 tablet by mouth four times daily. lactulose 20 gram/30 mL solution Take 30 mL by mouth once daily. insulin lispro (HUMALOG KWIKPEN INSULIN) 100 unit/mL Inject subcutaneously three times daily before meals. escitalopram oxalate (LEXAPRO) 10 mg tablet Take 1 tablet by mouth once daily. rOPINIRole (REQUIP) 2 mg tablet Take 1 tablet by mouth daily at bedtime. traZODone (DESYREL) 50 mg tablet Take 1 tablet by mouth daily at bedtime. JARDIANCE 10 mg tablet TAKE 1 TABLET DAILY tamsulosin (FLOMAX) 0.4 mg TAKE 1 CAPSULE TWICE A DAY No current facility-administered medications on file prior to visit. Social History Social History Tobacco Use Smoking status: Former Smokeless tobacco: Never Tobacco comments: Quit smoking 2019 Vaping Use Vaping Use: Former Substance Use Topics Alcohol use: Yes Comment: rare Drug use: No EXAM: BP 130/80 Pulse 72 Resp 18 Wt 88.9 kg (196 lb) BMI 32.12 kg/m General Appearance: Well appearing, alert, in no acute distress, well-hydrated, well nourished.. Lungs: Lungs clear to auscultation. No wheezing, rhonchi, rales.. Heart: RRR without murmur, gallop, or rubs. No ectopy. Abdomen: tense, bloated. Extremities: bilateral 2+ pitting edema. Health Maintenance List COVID-19 VACCINE(1) Never done BP CONTROLLED (<130/80) Never done SHINGRIX VACCINE(2 of 3) due on 12/27/2013 DIABETIC FOOT EXAM due on 04/21/2021 URINE ALBUMIN:CREATININE RATIO due on 04/25/2021 ADVANCE DIRECTIVE DISCUSSION Never done DEPRESSION ASSESSMENT due on 02/17/2022 LDL CHOLESTEROL due on 06/28/2022 INFLUENZA(1) due on 10/18/2022 HBA1C due on 11/09/2022 DILATED RETINAL EXAM due on 04/26/2023 ANNUAL PCP TEAM CHRONIC DISEASE VISIT due on 05/10/2023 COLORECTAL CANCER SCREENING due on 10/17/2026 DTAP,TDAP,TD(3 - Td or Tdap) due on 07/19/2029 PNEUMOCOCCAL: 65+ Completed HPV VACCINE Aged Out Data reviewed [facility] ER reports ASSESSMENT/PLAN: 1. Hypothyroidism, unspecified type - ICD9: 244.9, ICD10: E03.9 (primary diagnosis) 2. Essential hypertension - ICD9: 401.9, ICD10: I10 - COMP METABOLIC PANEL - CBC 3. Acquired hypothyroidism - ICD9: 244.9, ICD10: E03.9 - TSH BLD 4. Controlled type 2 diabetes mellitus with complication, without long-term current use of insulin (HCC) - ICD9: 250.90, ICD10: E11.8 - COMP METABOLIC PANEL - HGB A1C 5. Pancytopenia (HCC) - ICD9: 284.19, ICD10: D61.818 6. Neuropathy associated with endocrine disorder (HCC) - ICD9: 355.9, 259.9, ICD10: E34.9, G63 7. Cirrhosis of liver with ascites, unspecified hepatic cirrhosis type (HCC) - ICD9: 571.5, ICD10: K74.60, R18.8 8. Chronic obstructive pulmonary disease, unspecified COPD type (HCC) - ICD9: 496, ICD10: J44.9 9. Heart failure, unspecified HF chronicity, unspecified heart failure type (HCC) - ICD9: 428.9, ICD10: I50.9 10. Peripheral vascular disease (HCC) - ICD9: 443.9, ICD10: I73.9 11. Acute and chronic respiratory failure with hypercapnia (HCC) - ICD9: 518.84, ICD10: J96.22 Unable to make decisions about medications without knowing what he is actually taking; he was instructed to get the labwork as ordered, and follow up, bringing all of his medications with him I agree with the Chief Complaint, ROS, and Past Histories independently gathered by the clinical patient support specialist and the remaining scribed note accurately describes my personal service to the patient. Medical Decision Making: Problems: Moderate: 2+ stable chronic illnesses Data: Unique test(s) ordered: 3+ Risk: Moderate: Drug management Medical Decision Making Level: 4 - Moderate Luke Barger MD The documentation for this note was completed by Avis Caruso Ma acting as scribe for Luke Barger MD. October 14, 2022 6:10 PM. Avis Caruso Ma documented in this encounter [facility] 10-07-2022 Miscellaneous Notes Pt notified and voiced understanding. Avis Caruso Ma Please let the patient know that I sent in Lasix 40 mg. Continue with upcoming appointment Should go back to the ER if he gets short of breath. The following approved medication requests have been transmitted electronically. Requested Prescriptions Signed Prescriptions Disp Refills furosemide (LASIX) 40 mg tablet 7 tablet 0 Sig: Take 1 tablet by mouth once daily. Authorizing Provider: ADOLFO RYDER APRN.CNP Pt calls to report he was at the [facility] ER 10/05 for SOB and retaining fluid. Pt reports he was given lasix and was able to urinate a lot. Pt reports he is bloated again and is asking for rx for lasix. Pt reports he does not want to go back to ER and is asking for provider to review ER report. Pt has an appt already scheduled for ER f/u on and did not want to come into office today. Pt has no complaints of SOB. Please review and advise. Taylor Hammond LPN documented in this encounter [facility] 05-10-2022 Miscellaneous Notes OK; Rx sent to Thiago Barger MD Patient calls to request Synthroid prescription be sent to [facility]. Patient reports he is no longer using [facility]. Last OV: 05/09/2022 Next OV: 06/14/2022 Bertha Yost RN documented in this encounter [facility] 05-10-2022 Miscellaneous Notes Called and left a detailed voicemail notifying patient of providers message. Hospital phone number was left in case patient had any questions. Jessie Triplett RN Please notify patient that his lab results look OK; his diabetes is well controlled, with an A1c of 5.5, so stay on the same medications for that. His thyroid test shows that his dose is a little low, so I would dorene to increase him to 137 mcg daily; new Rx done His blood count is still a little low, so he should follow up with Dr Hdez as we discussed Follow up in 3 months, with repeat labs prior, as planned Luke Barger MD documented in this encounter [facility] 05-09-2022 Note HNO ID: [id number] Author: Luke Barger MD Service: ? Author Type: Physician Type: Progress Notes Filed: 05/09/2022 5:21 PM Note Text: Chief Complaint Patient presents with: SNF follow up HPI Richard Vargas is a 76 year old male who presents here today for a SNF follow up. Pt here today for a SNF f/u. Pt admitted into [facility] on 03/06/22 with increased sob and confusion. Pt discharged on 03/13/22 to [place]. Pt d/c home on 04/11/22. Daughter lives with him and manages his medications. Pt is able to perform ADL's and cooks meals. Feels he's doing well since d/c. He's not f/u with any of the Providers that he previously seen while admitted. He's wondering if he needs to have an US Paracentesis done again. DM - Pt states that he does have a meter at home, but not quite sure how to use it. States he can never get the meter to read. States sometimes he gets tired and weak in the evening, unsure if this is related to his sugars being too low. Denies any neuropathy symptoms in b/l feet. Pt currently taking Jardiance 10 mg once daily and Humalog Kwik Pen 100 units with a sliding scale. Pt states he gives this to himself when he remembers. Follows with [facility], wants to get new DM shoes. They are needing OV notes from Primary Care in order to cover. Was seen by them two weeks ago. GI - Wondering if he's needing an US Paracentesis. Feels his abdomen is getting larger. Pt on current regimen Carafate 1 gram daily, Lactulose 20 gram/30 mL daily, Protonix 40 mg bid and Xifaxin 550 mg bid. HTN/CHF - Denies checking BP at home. Denies any chest pain. Some dizziness with getting up. Has chronic sob. Does take Lasix 40 mg once daily. RLS - Takes Requip 2 mg at bedtime for RLS. Sleep - Taking Trazodone 50 mg once daily. Moods - States that he lost his Rx of Lexapro 10 mg once daily when moving. Unknown if this was d/c while admitted. COPD - Has O2 at home and portable. Generally uses 2 L at bedtime. Receives supplies through [employer]. Former smoker, quit in 2019. Falls - Has had several falls over the past year. Denies any new falls he believes since being d/c from [facility] on 04/11/22. Generally uses a walker/rollator or wheelchair. Pt states that when he was a [place], [facility] came out 2-3 x per week to check labs. Discharge Diagnosis (1) PRUDENCE (acute kidney injury): Status: Acute Code(s): N17.9 - Acute kidney failure, unspecified (2) Cirrhosis: Status: Acute Code(s): K74.60 - Unspecified cirrhosis of liver (3) Acute and chronic respiratory failure with hypercapnia: Status: Chronic Code(s): J96.22 - Acute and chronic respiratory failure with hypercapnia Plan Patient is a 76-year-old male with multiple comorbidities admitted with progressive shortness of breath and confusion. Was diagnosed with new onset pleural effusion and ascites secondary to cirrhosis of the liver 1. Acute combined respiratory failure secondary to acute fluid overload/right hepatothorax/acute CHF exacerbation, . Managed with treatment of the underlying conditions 2. Acute on chronic congestive heart failure with preserved ejection fraction - Patient managed with diuretics, strict input and output Daily weight fluid restriction 3. Elevated troponin Secondary to demand ischemia from patient hypoxemia patient seen in consultation by cardiology 4. Acute decompensated cirrhosis of the liver with ascites and hydrothorax with hepatic encephalopathy - Patient underwent ultrasound-guided paracentesis with almost 7 L of ascitic fluid taken off. Subsequently managed with lactulose and rifaximin -03/13/2022; did decrease patient lactulose dose from 20 g twice daily to 20 mg daily due to frequent loose bowel movement 5. Acute hepatic encephalopathy - Managed with lactulose and rifaximin resolved 6. Esophageal stenosis - Status post dilation. Patient has been seen in consultation by GI following 7. Upper GI bleed - Secondary to erosive gastropathy patient underwent EGD which did not show nonbleeding erosive gastropathy, multiple nonbleeding duodenal ulcers, multiple oozing duodenal ulcers status post injection and heater probe treatment. Subsequently placed on Carafate and PPI 8. Acute kidney injury - Superimposed on chronic kidney disease stage III. She has been seen in consultation by nephrology notes and recommendations reviewed 9. Anemia - Secondary to chronic disorder monitoring HANDH and transfuse if patient becomes symptomatic or hemoglobin falls below 7 10. Parkinson's disease - Patient is on Sinemet did continue 11. DVT prophylaxis - Bilateral SCDs 12. Physical deconditioning - Requested for PT OT eval and psychiatric social worker supervisor to assist with discharge planning 13. Pancytopenia -due to chronic liver disease, monitoring with daily CBCs Past medical history, appointments, medications, allergies reviewed. Previous Medical History PAST MEDICAL HISTORY (more content not included)... [facility] 05-09-2022 Instructions Lucretia Arriaza Ma - 05/09/2022 10:44 AM EDT Schedule follow up with Dr. Hdez (Epic Prelude Analyst/GI) who you seen at [facility]. They will review your stomach and liver issues. Phone #: [phone]. Follow up in 1 month. Lexapro prescription was sent to local pharmacy. Complete labs today, will call with results. documented in this encounter [facility] 05-09-2022 History of Presen t illness Narrative Chief Complaint Patient presents with: SNF follow up HPI Richard Vargas is a 76 year old male who presents here today for a SNF follow up. Pt here today for a SNF f/u. Pt admitted into [facility] on 03/06/22 with increased sob and confusion. Pt discharged on 03/13/22 to [place]. Pt d/c home on 04/11/22. Daughter lives with him and manages his medications. Pt is able to perform ADL's and cooks meals. Feels he's doing well since d/c. He's not f/u with any of the Providers that he previously seen while admitted. He's wondering if he needs to have an US Paracentesis done again. DM - Pt states that he does have a meter at home, but not quite sure how to use it. States he can never get the meter to read. States sometimes he gets tired and weak in the evening, unsure if this is related to his sugars being too low. Denies any neuropathy symptoms in b/l feet. Pt currently taking Jardiance 10 mg once daily and Humalog Kwik Pen 100 units with a sliding scale. Pt states he gives this to himself when he remembers. Follows with [facility], wants to get new DM shoes. They are needing OV notes from Primary Care in order to cover. Was seen by them two weeks ago. GI - Wondering if he's needing an US Paracentesis. Feels his abdomen is getting larger. Pt on current regimen Carafate 1 gram daily, Lactulose 20 gram/30 mL daily, Protonix 40 mg bid and Xifaxin 550 mg bid. HTN/CHF - Denies checking BP at home. Denies any chest pain. Some dizziness with getting up. Has chronic sob. Does take Lasix 40 mg once daily. RLS - Takes Requip 2 mg at bedtime for RLS. Sleep - Taking Trazodone 50 mg once daily. Moods - States that he lost his Rx of Lexapro 10 mg once daily when moving. Unknown if this was d/c while admitted. COPD - Has O2 at home and portable. Generally uses 2 L at bedtime. Receives supplies through [employer]. Former smoker, quit in 2019. Falls - Has had several falls over the past year. Denies any new falls he believes since being d/c from [place] on 04/11/22. Generally uses a walker/rollator or wheelchair. Pt states that when he was a [place], [facility] came out 2-3 x per week to check labs. Discharge Diagnosis (1) PRUDENCE (acute kidney injury): Status: Acute Code(s): N17.9 - Acute kidney failure, unspecified (2) Cirrhosis: Status: Acute Code(s): K74.60 - Unspecified cirrhosis of liver (3) Acute and chronic respiratory failure with hypercapnia: Status: Chronic Code(s): J96.22 - Acute and chronic respiratory failure with hypercapnia Plan Patient is a 76-year-old male with multiple comorbidities admitted with progressive shortness of breath and confusion. Was diagnosed with new onset pleural effusion and ascites secondary to cirrhosis of the liver 1. Acute combined respiratory failure secondary to acute fluid overload/right hepatothorax/acute CHF exacerbation, . Managed with treatment of the underlying conditions 2. Acute on chronic congestive heart failure with preserved ejection fraction - Patient managed with diuretics, strict input and output Daily weight fluid restriction 3. Elevated troponin Secondary to demand ischemia from patient hypoxemia patient seen in consultation by cardiology 4. Acute decompensated cirrhosis of the liver with ascites and hydrothorax with hepatic encephalopathy - Patient underwent ultrasound-guided paracentesis with almost 7 L of ascitic fluid taken off. Subsequently managed with lactulose and rifaximin -03/13/2022; did decrease patient lactulose dose from 20 g twice daily to 20 mg daily due to frequent loose bowel movement 5. Acute hepatic encephalopathy - Managed with lactulose and rifaximin resolved 6. Esophageal stenosis - Status post dilation. Patient has been seen in consultation by GI following 7. Upper GI bleed - Secondary to erosive gastropathy patient underwent EGD which did not show nonbleeding erosive gastropathy, multiple nonbleeding duodenal ulcers, multiple oozing duodenal ulcers status post injection and heater probe treatment. Subsequently placed on Carafate and PPI 8. Acute kidney injury - Superimposed on chronic kidney disease stage III. She has been seen in consultation by nephrology notes and recommendations reviewed 9. Anemia - Secondary to chronic disorder monitoring H&H and transfuse if patient becomes symptomatic or hemoglobin falls below 7 10. Parkinson's disease - Patient is on Sinemet did continue 11. DVT prophylaxis - Bilateral SCDs 12. Physical deconditioning - Requested for PT OT eval and psychiatric social worker supervisor to assist with discharge planning 13. Pancytopenia -due to chronic liver disease, monitoring with daily CBCs Past medical history, appointments, medications, allergies reviewed. Previous Medical History PAST MEDICAL HISTORY Diagnosis Date Anxiety disorder 12/16/2014 Anxiety disorder in conditions classified elsewhere DEPRESSIVE DISORDER NEC 09/03/2006 Diabetes mellitus type 2, controlled 02/26/2010 Diverticulosis of colon (without mention of hemorrhage) H/O compression fracture of spine 12/16/2014 Hypertension Hypertrophy of testis 09/28/2014 HYPERTROPHY PROSTATE WITH OBST 10/31/2004 Internal hemorrhoids without mention of complication OBESITY NOS 10/31/2004 Periodic limb movement disorder (PLMD) 12/16/2014 RECURR DEPR PSYCHOS-UNSP 10/31/2004 Sciatica 12/09/2006 Skin cancer, basal cell 05/2013 left nose Unspecified hypothyroidism 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 John Previous Surgical History PAST SURGICAL HISTORY Procedure Laterality Date COLONOSCOPY 10/17/2021 repeat in 5 years COLONOSCOPY FLX DX W/COLLJ SPEC WHEN PFRMD 05/06/2001 Colonoscopy COLONOSCOPY FLX DX W/COLLJ SPEC WHEN PFRMD 10/01/2011 repeat 10 years MOHS HEAD/NECK STAGE 1 <=5 Left 06/03/2013 nose SIGMOIDOSCOPY FLX DX W/COLLJ SPEC BR/WA IF PFRMD 01/19/2004 Sigmoidoscopy SKIN BX, 1 LESION 09/18/2021 Upper Back, Shave Biopsy VASECTOMY UNI/BI SPX W/POSTOP SEMEN EXAMS 1978 XCAPSL CTRC RMVL INSJ IO LENS PROSTH W/O ECP Bilateral [facility] Family History FAMILY HISTORY Problem Relation Age of Onset Stroke Mother other (cirrhosis) Father Diabetes Brother No Ocular Disease No Family History Patient Allergies ALLERGIES Allergen Reactions Aloe Vera Rash Diclofenac Intolerance leg edema Current Medications Current Outpatient Medications on File Prior to Visit Medication Sig rOPINIRole (REQUIP) 2 mg tablet Take 1 tablet by mouth daily at bedtime. escitalopram oxalate (LEXAPRO) 10 mg tablet Take 1 tablet by mouth once daily. rOPINIRole (REQUIP) 2 mg tablet Take 1 tablet by mouth daily at bedtime. celecoxib (CELEBREX) 100 mg capsule Take 1 capsule by mouth twice daily. traZODone (DESYREL) 50 mg tablet Take 1 tablet by mouth daily at bedtime. peg 3350-Electrolytes (GOLYTELY) 236-22.74-6.74 -5.86 gram suspension Refer to printed prep instructions from your provider. lisinopril (ZESTRIL, PRINIVIL) 10 mg tablet TAKE 1 TABLET DAILY LEVOXYL 125 mcg tablet TAKE 1 TABLET DAILY ON AN EMPTY STOMACH FOR THYROID JARDIANCE 10 mg tablet TAKE 1 TABLET DAILY tamsulosin (FLOMAX) 0.4 mg TAKE 1 CAPSULE TWICE A DAY carbidopa-levodopa (SINEMET 25-100) 25-100 mg per tablet Take 2 tablets by mouth three times daily. metFORMIN ER (GLUCOPHAGE XR) 500 mg 24 hr tablet TAKE 1 TABLET DAILY AT SUPPER propylene glycoL (SYSTANE BALANCE) 0.6 % drop Use 1 Drop in both eyes four times daily. gabapentin (NEURONTIN) 300 mg capsule Take 1 capsule by mouth daily at bedtime for 90 days. No current facility-administered medications on file prior to visit. Social History Social History Tobacco Use Smoking status: Former Smokeless tobacco: Never Tobacco comments: smokes E Cigarettes started 2014 - quit 30 years ago, has smoked off and on last cigarette was in 2005 Vaping Use Vaping Use: Former Substance Use Topics Alcohol use: Yes Comment: rare Drug use: No EXAM: BP 130/64 (BP Site: Left Arm, BP Position: Sitting, BP Cuff Size: Regular Adult) Pulse 76 Resp 20 Wt 85.2 kg (187 lb 12.8 oz) SpO2 99% BMI 30.78 kg/m General Appearance: Well appearing, alert, in no acute distress, well-hydrated, well nourished.. Neck: Supple, no adenopathy; thyroid symmetric, normal size, no bruits. Lungs: Lungs clear to auscultation. No wheezing, rhonchi, rales.. Heart: RRR without murmur, gallop, or rubs. No ectopy. Abdomen: Normal abdominal exam, Abdomen soft, non-tender. Bowel sounds normal. No masses, organomegaly. Extremities: Edema: Minimally b/l lower extremities. Health Maintenance List COVID-19 VACCINE(1) Never done BP CONTROLLED (<130/80) Never done SHINGRIX VACCINE(2 of 3) due on 12/27/2013 DIABETIC FOOT EXAM due on 04/21/2021 URINE ALBUMIN:CREATININE RATIO due on 04/25/2021 HBA1C due on 12/29/2021 ADVANCE DIRECTIVE DISCUSSION Never done DEPRESSION ASSESSMENT due on 02/17/2022 LDL CHOLESTEROL due on 06/28/2022 ANNUAL PCP TEAM CHRONIC DISEASE VISIT due on 01/24/2023 DILATED RETINAL EXAM due on 04/26/2023 COLORECTAL CANCER SCREENING due on 10/17/2026 DTAP,TDAP,TD(3 - Td or Tdap) due on 07/19/2029 INFLUENZA Completed HEPATITIS C SCREENING Completed PNEUMOCOCCAL: 65+ Completed Data reviewed [facility] documents ASSESSMENT/PLAN: 1. Hospital discharge follow-up - ICD9: V67.59, ICD10: Z09 (primary diagnosis) - Stable today 2. RLS (restless legs syndrome) - ICD9: 333.94, ICD10: G25.81 - Stable - Continue current medication regimen. 3. Essential hypertension - ICD9: 401.9, ICD10: I10 - good control - Recommended regular aerobic exercise. - Recommend home blood pressure monitoring, to bring results in on next visit - Goal of BP <130/80 4. Difficulty sleeping - ICD9: 780.50, ICD10: G47.9 - Continue current medication regimen. 5. Controlled type 2 diabetes mellitus with complication, without long-term current use of insulin (HCC) - ICD9: 250.90, ICD10: E11.8 - check A1c - HGB A1C - COMP METABOLIC PANEL 6. Hypothyroidism, unspecified type - ICD9: 244.9, ICD10: E03.9 - check labs today - Continue current medication regimen. - TSH BLD 7. 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 8. BPH with obstruction/lower urinary tract symptoms - ICD9: 600.01, 599.69, ICD10: N40.1, N13.8 - Continue current medication regimen. 9. Generalized anxiety disorder - ICD9: 300.02, ICD10: F41.1 - Restart Lexapro 10. Thrombocytopenia - ICD9: 287.5, ICD10: D69.6 - Check labs today - CBC + DIFF 1 mo f/u, complete labs today. Will call with results. I agree with the Chief Complaint, ROS, and Past Histories independently gathered by the clinical patient support specialist and the remaining scribed note accurately describes my personal service to the patient. Medical Decision Making: Problems: Moderate: 2+ stable chronic illnesses Data: Unique test(s) ordered: 3+ Risk: Moderate: Drug management Medical Decision Making Level: 4 - Moderate Luke Barger MD The documentation for this note was completed by Lucretia Arriaza Ma acting as scribe for Luke Barger MD. May 09, 2022 10:42 AM. Lucretia Arriaza Ma documented in this encounter [facility] 04-25-2022 Miscellaneous Notes Pt notified via identified VM. The following approved medication requests have been transmitted electronically. Requested Prescriptions Signed Prescriptions Disp Refills escitalopram oxalate (LEXAPRO) 10 mg tablet 30 tablet 5 Sig: Take 1 tablet by mouth once daily. Authorizing Provider: LUKE BARGER Ma OK for Lexapro as ordered Luke Barger MD Richard Vargas is calling Luke Barger MD today to request a RX for lexapro which does not appear on the current medication list. Can this be sent to [facility] pharmacy in [place]. Patient believes he misplaced that RX and can not find the medication, he believes he threw them away in all house cleaning. Patient has been identified by name and birthdate. Person calling: self Call patient at: at home [phone] (home) [phone] (cell) Was an appointment scheduled: No Closing statement: Results or non-symptom based questions: Thank you for calling [facility], your call will be returned within the next business day. [employer] documented in this encounter [facility] 04-25-2022 Note HNO ID: [id number] Author: Bandar Cardona, GENESIS Service: ? Author Type: BUSINESS PROCESS ASSOCIATE Type: Progress Notes Filed: 04/25/2022 9:17 AM Note Text: 1. Controlled type 2 diabetes mellitus with complication, without long-term current use of insulin (HCC) Risk of diabetic changes and vision loss can be minimized by tight control of blood sugar, blood pressure, and cholesterol levels. Educated patient to continue care with primary care doctor and/or table games floor supervisor to maintain optimum levels as they are important to avoid ocular complications. Encouraged patient to call the office immediately with any changes to vision or visual concerns. Advised to not wait until the next scheduled exam. 2. Dry eye syndrome of both eyes 3. Punctate keratitis, bilateral In setting of Parkinson's Educated pt Recommended Systane/Refresh gel twice daily 4. Epiretinal membrane (ERM) of left eye Stable -will observe - OCT MACULA CIRRUS OU (BOTH EYES) 5. Optic nerve drusen, bilateral Stable-observe - OCT OPTIC NERVE CIRRUS OU (BOTH EYES) 6. Pseudophakia Doing well Monitor yearly with OCT mac/nerve and dilation Bandar Cardona, OD April 25, 2022 9:16 AM [facility] 04-25-2022 History of Presen t illness Narrative 1. Controlled type 2 diabetes mellitus with complication, without long-term current use of insulin (HCC) Risk of diabetic changes and vision loss can be minimized by tight control of blood sugar, blood pressure, and cholesterol levels. Educated patient to continue care with primary care doctor and/or table games floor supervisor to maintain optimum levels as they are important to avoid ocular complications. Encouraged patient to call the office immediately with any changes to vision or visual concerns. Advised to not wait until the next scheduled exam. 2. Dry eye syndrome of both eyes 3. Punctate keratitis, bilateral In setting of Parkinson's Educated pt Recommended Systane/Refresh gel twice daily 4. Epiretinal membrane (ERM) of left eye Stable -will observe - OCT MACULA CIRRUS OU (BOTH EYES) 5. Optic nerve drusen, bilateral Stable-observe - OCT OPTIC NERVE CIRRUS OU (BOTH EYES) 6. Pseudophakia Doing well Monitor yearly with OCT mac/nerve and dilation Bandar Cardona, OD April 25, 2022 9:16 AM documented in this encounter [facility] 04-25-2022 Instructions Bandar Cardona, OD - 04/25/2022 9:10 AM EST Use Systane, Refresh or Blink gel once in the morning and once before bed in both eyes documented in this encounter [facility] 04-25-2022 Miscellaneous Notes Detailed VM left on pt's identified voicemail of information below. Charis José LPN OK to refill as ordered Luke Barger MD Patient said he lost the rx sent on 04/18/22. He also said it should have been written for more than 10 pills. He is out of medication. Wants to know if this rx can be sent today. Please call him at [phone] when sent. Patient has been identified by name and date of : Yes Requested Prescriptions Pending Prescriptions Disp Refills rOPINIRole (REQUIP) 2 mg tablet 90 tablet 3 Sig: Take 1 tablet by mouth daily at bedtime. RX INSTRUCTIONS: Patient aware RX will be sent to pharmacy. No need to notify patient. Arely Delarosa Pss documented in this encounter [facility] 01-24-2022 Note HNO ID: [id number] Author: Luke Barger MD Service: ? Author Type: Physician Type: Progress Notes Filed: 01/24/2022 11:27 AM Note Text: Chief Complaint Patient presents with: Back Pain Immunizations: Flu vaccination HPI Richard Vargas is a 76 year old male who presents here today for continued back pain. [facility] after having fall on concrete with pain in buttocks. Stated that the chair broke that he was sitting on. He has acute right side lower back pain without sciatica, was sent to [facility] ER by [facility]. Xrays done with report below. ER discharged him home on Flexeril 10 mg TID and Tramadol 50 mg 1 pill every 6 hours prn. He used Mobic and Gabapentin 300 mg at bedtime but that did not help. Tramadol was not helpful either. He has been using Celebrex 100 mg 1 pill BID for a month now. Pt states Celebrex does not help his pain either. He states when he coughs his pain is worse. The pain is constant, goes from lower back up into the upper back. Today he says his back is in mid and upper back. He denies any pain, numbness, weakness in the legs. States he can not do anything, mostly stays in bed. He uses some generic arthritis medication which seems to be the only thing that helps. Had lumbar xray done: FINDINGS: Normal lumbar lordosis. There is a levoscoliosis of the lumbar spine. No visualized acute fracture. Mild compression deformity of the L3 vertebral body with mild loss of height. Moderate disc space narrowing is present at L3-L4 and L4-L5. Normal vertebral bodies and endplates. Normal disc space heights. The soft tissue structures are unremarkable. ___ RAD/Lumbar Spine 2 or 3 Views IMPRESSION: 1. Degenerative changes of the spine, as detailed above. 2. Chronic appearing mild compression deformity of the L3 vertebral body. SOB: Wheezing and SOB is getting worse, has a cough. He states he has used inhalers in the past, said he gave up on them as they don't work. He states he has been trying to get on oxygen for years but never been able to get it. His pulse ox was 94% today. Past medical history, appointments, medications, allergies reviewed. Previous Medical History PAST MEDICAL HISTORY Diagnosis Date Anxiety disorder 12/16/2014 Anxiety disorder in conditions classified elsewhere DEPRESSIVE DISORDER NEC 09/03/2006 Diabetes mellitus type 2, controlled 02/26/2010 Diverticulosis of colon (without mention of hemorrhage) H/O compression fracture of spine 12/16/2014 Hypertension Hypertrophy of testis 09/28/2014 HYPERTROPHY PROSTATE WITH OBST 10/31/2004 Internal hemorrhoids without mention of complication OBESITY NOS 10/31/2004 Periodic limb movement disorder (PLMD) 12/16/2014 RECURR DEPR PSYCHOS-UNSP 10/31/2004 Sciatica 12/09/2006 Skin cancer, basal cell 05/2013 left nose Unspecified hypothyroidism 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 John Previous Surgical History PAST SURGICAL HISTORY Procedure Laterality Date COLONOSCOPY 10/17/2021 repeat in 5 years COLONOSCOPY FLX DX W/COLLJ SPEC WHEN PFRMD 05/06/2001 Colonoscopy COLONOSCOPY FLX DX W/COLLJ SPEC WHEN PFRMD 10/01/2011 repeat 10 years MOHS HEAD/NECK STAGE 1 <=5 Left 06/03/2013 nose SIGMOIDOSCOPY FLX DX W/COLLJ SPEC BR/WA IF PFRMD 01/19/2004 Sigmoidoscopy SKIN BX, 1 LESION 09/18/2021 Upper Back, Shave Biopsy VASECTOMY UNI/BI SPX W/POSTOP SEMEN EXAMS 1978 XCAPSL CTRC RMVL INSJ IO LENS PROSTH W/O ECP Bilateral [facility] Family History FAMILY HISTORY Problem Relation Age of Onset Stroke Mother other (cirrhosis) Father Diabetes Brother No Ocular Disease No Family History Patient Allergies ALLERGIES Allergen Reactions Aloe Vera Rash Diclofenac Intolerance leg edema Current Medications Current Outpatient Medications on File Prior to Visit Medication Sig celecoxib (CELEBREX) 100 mg capsule Take 1 capsule by mouth twice daily. rOPINIRole (REQUIP) 2 mg tablet Take 1 tablet by mouth daily at bedtime. (Patient not taking: Reported on 11/15/2021) rOPINIRole (REQUIP) 2 mg tablet Take 1 tablet by mouth daily at bedtime. traZODone (DESYREL) 50 mg tablet Take 1 tablet by mouth daily at bedtime. peg 3350-Electrolytes (GOLYTELY) 236-22.74-6.74 -5.86 gram suspension Refer to printed prep instructions from your provider. lisinopril (ZESTRIL, PRINIVIL) 10 mg tablet TAKE 1 TABLET DAILY LEVOXYL 125 mcg tablet TAKE 1 TABLET DAILY ON AN EMPTY STOMACH FOR THYROID JARDIANCE 10 mg tablet TAKE 1 TABLET DAILY tamsulosin (FLOMAX) 0.4 mg TAKE 1 CAPSULE TWICE A DAY carbidopa-levodopa (SINEMET 25-100) 25-100 mg per tablet Take 2 tablets by mouth three times daily. metFORMIN ER (GLUCOPHAGE XR) 500 mg 24 hr tablet TAKE 1 TABLET DAILY AT SUPPER propylene glycoL (SYSTANE BALANCE) 0.6 % drop Use 1 Drop in both eyes four times daily. gabapentin (NEURONTIN) 300 (more content not included)... [facility] 01-24-2022 History of Presen t illness Narrative Chief Complaint Patient presents with: Back Pain Immunizations: Flu vaccination HPI Richard Vargas is a 76 year old male who presents here today for continued back pain. [facility] after having fall on concrete with pain in buttocks. Stated that the chair broke that he was sitting on. He has acute right side lower back pain without sciatica, was sent to [facility] ER by [facility]. Xrays done with report below. ER discharged him home on Flexeril 10 mg TID and Tramadol 50 mg 1 pill every 6 hours prn. He used Mobic and Gabapentin 300 mg at bedtime but that did not help. Tramadol was not helpful either. He has been using Celebrex 100 mg 1 pill BID for a month now. Pt states Celebrex does not help his pain either. He states when he coughs his pain is worse. The pain is constant, goes from lower back up into the upper back. Today he says his back is in mid and upper back. He denies any pain, numbness, weakness in the legs. States he can not do anything, mostly stays in bed. He uses some generic arthritis medication which seems to be the only thing that helps. Had lumbar xray done: FINDINGS: Normal lumbar lordosis. There is a levoscoliosis of the lumbar spine. No visualized acute fracture. Mild compression deformity of the L3 vertebral body with mild loss of height. Moderate disc space narrowing is present at L3-L4 and L4-L5. Normal vertebral bodies and endplates. Normal disc space heights. The soft tissue structures are unremarkable. ___ RAD/Lumbar Spine 2 or 3 Views IMPRESSION: 1. Degenerative changes of the spine, as detailed above. 2. Chronic appearing mild compression deformity of the L3 vertebral body. SOB: Wheezing and SOB is getting worse, has a cough. He states he has used inhalers in the past, said he gave up on them as they don't work. He states he has been trying to get on oxygen for years but never been able to get it. His pulse ox was 94% today. Past medical history, appointments, medications, allergies reviewed. Previous Medical History PAST MEDICAL HISTORY Diagnosis Date Anxiety disorder 12/16/2014 Anxiety disorder in conditions classified elsewhere DEPRESSIVE DISORDER NEC 09/03/2006 Diabetes mellitus type 2, controlled 02/26/2010 Diverticulosis of colon (without mention of hemorrhage) H/O compression fracture of spine 12/16/2014 Hypertension Hypertrophy of testis 09/28/2014 HYPERTROPHY PROSTATE WITH OBST 10/31/2004 Internal hemorrhoids without mention of complication OBESITY NOS 10/31/2004 Periodic limb movement disorder (PLMD) 12/16/2014 RECURR DEPR PSYCHOS-UNSP 10/31/2004 Sciatica 12/09/2006 Skin cancer, basal cell 05/2013 left nose Unspecified hypothyroidism 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 John Previous Surgical History PAST SURGICAL HISTORY Procedure Laterality Date COLONOSCOPY 10/17/2021 repeat in 5 years COLONOSCOPY FLX DX W/COLLJ SPEC WHEN PFRMD 05/06/2001 Colonoscopy COLONOSCOPY FLX DX W/COLLJ SPEC WHEN PFRMD 10/01/2011 repeat 10 years MOHS HEAD/NECK STAGE 1 <=5 Left 06/03/2013 nose SIGMOIDOSCOPY FLX DX W/COLLJ SPEC BR/WA IF PFRMD 01/19/2004 Sigmoidoscopy SKIN BX, 1 LESION 09/18/2021 Upper Back, Shave Biopsy VASECTOMY UNI/BI SPX W/POSTOP SEMEN EXAMS 1979 XCAPSL CTRC RMVL INSJ IO LENS PROSTH W/O ECP Bilateral [facility] Family History FAMILY HISTORY Problem Relation Age of Onset Stroke Mother other (cirrhosis) Father Diabetes Brother No Ocular Disease No Family History Patient Allergies ALLERGIES Allergen Reactions Aloe Vera Rash Diclofenac Intolerance leg edema Current Medications Current Outpatient Medications on File Prior to Visit Medication Sig celecoxib (CELEBREX) 100 mg capsule Take 1 capsule by mouth twice daily. rOPINIRole (REQUIP) 2 mg tablet Take 1 tablet by mouth daily at bedtime. (Patient not taking: Reported on 11/15/2021) rOPINIRole (REQUIP) 2 mg tablet Take 1 tablet by mouth daily at bedtime. traZODone (DESYREL) 50 mg tablet Take 1 tablet by mouth daily at bedtime. peg 3350-Electrolytes (GOLYTELY) 236-22.74-6.74 -5.86 gram suspension Refer to printed prep instructions from your provider. lisinopril (ZESTRIL, PRINIVIL) 10 mg tablet TAKE 1 TABLET DAILY LEVOXYL 125 mcg tablet TAKE 1 TABLET DAILY ON AN EMPTY STOMACH FOR THYROID JARDIANCE 10 mg tablet TAKE 1 TABLET DAILY tamsulosin (FLOMAX) 0.4 mg TAKE 1 CAPSULE TWICE A DAY carbidopa-levodopa (SINEMET 25-100) 25-100 mg per tablet Take 2 tablets by mouth three times daily. metFORMIN ER (GLUCOPHAGE XR) 500 mg 24 hr tablet TAKE 1 TABLET DAILY AT SUPPER propylene glycoL (SYSTANE BALANCE) 0.6 % drop Use 1 Drop in both eyes four times daily. gabapentin (NEURONTIN) 300 mg capsule Take 1 capsule by mouth daily at bedtime for 90 days. No current facility-administered medications on file prior to visit. Social History Social History Tobacco Use Smoking status: Former Smokeless tobacco: Never Tobacco comments: smokes E Cigarettes started 2014 - quit 30 years ago, has smoked off and on last cigarette was in 2005 Vaping Use Vaping Use: Former Substance Use Topics Alcohol use: Yes Comment: rare Drug use: No EXAM: BP 150/90 Pulse 78 Temp 36.8 C (98.2 F) (Tympanic) Resp 20 Wt 105.7 kg (233 lb) SpO2 94% BMI 38.18 kg/m General Appearance: Well appearing, alert, in no acute distress, well-hydrated, well nourished. and Overweight. Back: pain on palpation to mid and lower thoracic area, no pain in the lower back. Limited ROM in all directions. No pain at this time to the lower back. Lungs: Positive findings: wheezing diffusely. Heart: RRR without murmur, gallop, or rubs. No ectopy. Health Maintenance List COVID-19 VACCINE(1) Never done BP CONTROLLED (<130/80) Never done SHINGRIX VACCINE(2 of 3) due on 12/27/2013 ADVANCE DIRECTIVE DISCUSSION Never done DEPRESSION ASSESSMENT Never done DIABETIC FOOT EXAM due on 04/21/2021 URINE ALBUMIN:CREATININE RATIO due on 04/25/2021 INFLUENZA(1) due on 10/18/2021 HBA1C due on 12/29/2021 DILATED RETINAL EXAM due on 04/25/2022 LDL CHOLESTEROL due on 06/28/2022 ANNUAL PCP TEAM CHRONIC DISEASE VISIT due on 09/04/2022 COLORECTAL CANCER SCREENING due on 10/17/2026 DTAP,TDAP,TD(3 - Td or Tdap) due on 07/19/2029 HEPATITIS C SCREENING Completed PNEUMOCOCCAL: 65+ Completed Data reviewed None ASSESSMENT/PLAN: 1. Upper back pain - ICD9: 724.5, ICD10: M54.9 (primary diagnosis) Chronic low back pain - Ice for localized tenderness - Warm moist heat for 20 min three times a day Continue with OTC arthritis medication Prednisone ordered - DEPRESSION SCREENING/ASSESSMENT 2. Need for influenza vaccination - ICD9: V04.81, ICD10: Z23 - INFLUENZA SEASONAL QUADRIVALENT HIGH DOSE AGE 65+ 3. Wheezing - ICD9: 786.07, ICD10: R06.2 Prednisone ordered Follow up as needed; let me know how he does on the prednisone I agree with the Chief Complaint, ROS, and Past Histories independently gathered by the clinical patient support specialist and the remaining scribed note accurately describes my personal service to the patient. Medical Decision Making: Problems: Moderate: 1+ chronic illnesses with change Risk: Moderate: Drug management Medical Decision Making Level: 4 - Moderate Luke Barger MD The documentation for this note was completed by Avis Caruso Ma acting as scribe for Luke Barger MD. January 24, 2022 8:19 AM. Avis Caruso Ma documented in this encounter [facility] 12-26-2021 Miscellaneous Notes Called and left a detailed voicemail notifying patient of providers message. Hospital phone number was left in case patient had any questions. Jessie Triplett RN Rx for Celebrex sent to Titus Barger MD Patient returns call: Patient is currently taking meloxicam. Patient is willing to try Celebrex. Patient is not currently taking gabapentin. Patient is not currently taking tramadol. Bertha Yost RN Pt returned call to office, this encounter closed due to being duplicate. Pt was called and LM on to return call to office and speak with FM Triage Nurse. PCP wanted to know in addition is he taking Gabapentin, please ask pt when call is returned. Will route to PCP to have him send in Celebrex. Message from pt on 12/25/21: Richard Vargas is calling Luke Barger MD today requesting a change in medication from meloxicam do something different. Titus Mathias Please advise and return his call at [phone] Called and left a detailed voicemail notifying patient of providers message. Hospital phone number was left so the patient could answer the providers questions. Jessie Triplett, RN Is he still using Meloxicam? I could switch him to Celebrex if he would be willing to try another NSAID. Is he taking Neurontin? Luke Barger MD Patient calling checking on the status of medication for his arthritis. Patient is calling stating that the tramadol is NOT working at all and would like to have something else for his arthritis ? Contact patient at [phone]. Mariah José Pss documented in this encounter [facility] 12-02-2021 History of Presen t illness Narrative Subjective The history is provided by the patient and a relative. No sign language teacher was used. HPI Richard Vargas is a 76 year old male who presents today for CC of pain on buttocks after a fall on concrete, was sitting in a chair and chair broke. He is currently on trazadone and mobic. He states the only way he gets relief is lying down. He states he is having difficulty walking, denies loss of bowel or bladder function. BP 182/76 Pulse 94 Temp 36.4 C (97.6 F) Resp 21 Wt 99.8 kg (220 lb) SpO2 95% BMI 36.05 kg/m Social History Tobacco Use Smoking status: Former Smokeless tobacco: Never Tobacco comments: smokes E Cigarettes started 2014 - quit 30 years ago, has smoked off and on last cigarette was in 2005 Vaping Use Vaping Use: Former Substance Use Topics Alcohol use: Yes Comment: rare Drug use: No PAST MEDICAL HISTORY Diagnosis Date Anxiety disorder 12/16/2014 Anxiety disorder in conditions classified elsewhere DEPRESSIVE DISORDER NEC 09/03/2006 Diabetes mellitus type 2, controlled 02/26/2010 Diverticulosis of colon (without mention of hemorrhage) H/O compression fracture of spine 12/16/2014 Hypertension Hypertrophy of testis 09/28/2014 HYPERTROPHY PROSTATE WITH OBST 10/31/2004 Internal hemorrhoids without mention of complication OBESITY NOS 10/31/2004 Periodic limb movement disorder (PLMD) 12/16/2014 RECURR DEPR PSYCHOS-UNSP 10/31/2004 Sciatica 12/09/2006 Skin cancer, basal cell 05/2013 left nose Unspecified hypothyroidism 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 John I have confirmed and edited as necessary, the [facility] Review of Systems Constitutional: Negative for chills and fever. Musculoskeletal: Positive for back pain. Negative for joint pain and myalgias. Skin: Negative for itching and rash. All other systems reviewed and are negative. Objective Physical Exam Vitals and nursing note reviewed. Pulmonary: Effort: Pulmonary effort is normal. Skin: General: Skin is warm and dry. Neurological: Mental Status: He is alert and oriented to person, place, and time. Psychiatric: Mood and Affect: Affect normal. Patient unable to perform any part of the exam states in too much pain. ASSESSMENT/PLAN: 1. Fall, initial encounter - ICD9: E888.9, ICD10: W19.XXXA (primary diagnosis) 2. Acute right-sided low back pain without sciatica - ICD9: 724.2, ICD10: M54.50 Pain out of control and decreased movement - Due to nature of patient's complaint and lack of investigative tools available at [facility], recommend patient be seen at nearest ED for further work up ERpassport sent [facility]. Diagnosis and treatment plan were discussed and questions were answered to the patient's satisfaction. Pt acknowledged understanding of concepts and follow up plan. Specific signs and symptoms that would indicate the need for higher level of care were discussed in detail warranting prompt ER evaluation. Felicita Steen APRN.MARU documented in this encounter [facility] 11-16-2021 Miscellaneous Notes Noted; that should be fine Luke Barger MD documented in this encounter [facility] 11-15-2021 History of Presen t illness Narrative Subjective HPI Richard Vargas is a 76 year old male who presents with need for his requip. He has been out for 2 days. His PCP sent in a 90 day supply to home delivery today but he does not want to be out of the medication until he receives the home delivery. He takes this for his restless leg syndrome. He denies new or worsening symptoms. Review of Systems Constitutional: Negative for fever. Respiratory: Negative. Cardiovascular: Negative. Musculoskeletal: Negative for joint pain. BP 156/78 Pulse 79 Temp 36.2 C (97.2 F) Resp 18 Wt 96.1 kg (211 lb 12.8 oz) SpO2 97% BMI 34.71 kg/m PAST MEDICAL HISTORY Diagnosis Date Anxiety disorder 12/16/2014 Anxiety disorder in conditions classified elsewhere DEPRESSIVE DISORDER NEC 09/03/2006 Diabetes mellitus type 2, controlled 02/26/2010 Diverticulosis of colon (without mention of hemorrhage) H/O compression fracture of spine 12/16/2014 Hypertension Hypertrophy of testis 09/28/2014 HYPERTROPHY PROSTATE WITH OBST 10/31/2004 Internal hemorrhoids without mention of complication OBESITY NOS 10/31/2004 Periodic limb movement disorder (PLMD) 12/16/2014 RECURR DEPR PSYCHOS-UNSP 10/31/2004 Sciatica 12/09/2006 Skin cancer, basal cell 05/2013 left nose Unspecified hypothyroidism 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 John PAST SURGICAL HISTORY Procedure Laterality Date COLONOSCOPY 10/17/2021 repeat in 5 years COLONOSCOPY FLX DX W/COLLJ SPEC WHEN PFRMD 05/06/2001 Colonoscopy COLONOSCOPY FLX DX W/COLLJ SPEC WHEN PFRMD 10/01/2011 repeat 10 years MOHS HEAD/NECK STAGE 1 <=5 Left 06/03/2013 nose SIGMOIDOSCOPY FLX DX W/COLLJ SPEC BR/WA IF PFRMD 01/19/2004 Sigmoidoscopy SKIN BX, 1 LESION 09/18/2021 Upper Back, Shave Biopsy VASECTOMY UNI/BI SPX W/POSTOP SEMEN EXAMS 1978 XCAPSL CTRC RMVL INSJ IO LENS PROSTH W/O ECP Bilateral [facility] ALLERGIES Aloe Vera and Diclofenac MEDICATIONS meloxicam (MOBIC) 15 mg tablet Take 1 tablet by mouth once daily. With food. traZODone (DESYREL) 50 mg tablet Take 1 tablet by mouth daily at bedtime. lisinopril (ZESTRIL, PRINIVIL) 10 mg tablet TAKE 1 TABLET DAILY LEVOXYL 125 mcg tablet TAKE 1 TABLET DAILY ON AN EMPTY STOMACH FOR THYROID JARDIANCE 10 mg tablet TAKE 1 TABLET DAILY tamsulosin (FLOMAX) 0.4 mg TAKE 1 CAPSULE TWICE A DAY carbidopa-levodopa (SINEMET 25-100) 25-100 mg per tablet Take 2 tablets by mouth three times daily. metFORMIN ER (GLUCOPHAGE XR) 500 mg 24 hr tablet TAKE 1 TABLET DAILY AT SUPPER rOPINIRole (REQUIP) 2 mg tablet Take 1 tablet by mouth daily at bedtime. (Patient not taking: Reported on 11/15/2021) rOPINIRole (REQUIP) 2 mg tablet Take 1 tablet by mouth daily at bedtime. peg 3350-Electrolytes (GOLYTELY) 236-22.74-6.74 -5.86 gram suspension Refer to printed prep instructions from your provider. propylene glycoL (SYSTANE BALANCE) 0.6 % drop Use 1 Drop in both eyes four times daily. gabapentin (NEURONTIN) 300 mg capsule Take 1 capsule by mouth daily at bedtime for 90 days. FAMILY HISTORY Problem Relation Age of Onset Stroke Mother other (cirrhosis) Father Diabetes Brother No Ocular Disease No Family History Social History Tobacco Use Smoking status: Former Smokeless tobacco: Never Tobacco comments: smokes E Cigarettes started 2014 - quit 30 years ago, has smoked off and on last cigarette was in 2005 Vaping Use Vaping Use: Former Substance Use Topics Alcohol use: Yes Comment: rare Drug use: No Objective Physical Exam Vitals and nursing note reviewed. Constitutional: Appearance: Normal appearance. Cardiovascular: Rate and Rhythm: Normal rate. Pulmonary: Effort: Pulmonary effort is normal. Skin: General: Skin is warm and dry. Neurological: Mental Status: He is alert. ASSESSMENT/PLAN: 1. RLS (restless legs syndrome) - ICD9: 333.94, ICD10: G25.81 - ROPINIROLE 2 MG TABLET - a refill was sent by primary care today for 90 day supply, patient is out of the medication, this is a short term supply (10 days) until he gets his home delivery. Carmen Rock APRN.CNP documented in this encounter [facility] 11-15-2021 Instructions Carmen Rock APRN.CNP - 11/15/2021 6:50 PM EDT ASSESSMENT/PLAN: 1. RLS (restless legs syndrome) - ICD9: 333.94, ICD10: G25.81 - ROPINIROLE 2 MG TABLET - a refill was sent by primary care today for 90 day supply, patient is out of the medication, this is a short term supply (10 days) until he gets his home delivery. Carmen Rock APRN.CNP documented in this encounter [facility] 11-15-2021 Miscellaneous Notes The following approved medication requests have been transmitted electronically. Requested Prescriptions Pending Prescriptions Disp Refills rOPINIRole (REQUIP) 2 mg tablet 90 tablet 3 Sig: Take 1 tablet by mouth daily at bedtime. Filomena Allen APRN.CNP Pharmacy verified in [facility] Patient has been identified by name and date of : Yes Patient aware RX will be sent to pharmacy. No need to notify patient. Patient phones for refill(s): Requested Prescriptions Pending Prescriptions Disp Refills rOPINIRole (REQUIP) 2 mg tablet 90 tablet 3 Sig: Take 1 tablet by mouth daily at bedtime. Date of last office visit : 09/04/2021 Labs-09/04/21 Date of next office visit : Visit date not found Last 2 Encounter Wt Readings: Date: Wt: 10/05/2021 97.5 kg (215 lb) 09/04/2021 96.6 kg (213 lb) Please advise. Maria L Ortiz documented in this encounter [facility] 10-17-2021 History and physical note Images from the original note were not included. HISTORY AND PHYSICAL Richard Vargas 1945 REFERRING PHYSICIAN: Luke Barger MD CHIEF COMPLAINT: Consult (seborrheoc keratosis mole) HPI: The patient is a 76 year old male referred for endoscopy. Richard notes no history of colon complaints. The patient notes no history of upper GI complaints. Richard has undergone prior endoscopy. 09/2011 In addition the patient has a lesion on his upper back that has been there for quite some time and has been starting to grow. It is also been irritated and bleeds occasionally. The patient is being seen by me today at the request of Dr. Luke Barger MD for my opinion and advice regarding Atypical mole Pigmented skin lesion of uncertain nature (primary encounter diagnosis) Encounter for screening for malignant neoplasm of colon. PAST MEDICAL HISTORY PAST MEDICAL HISTORY Diagnosis Date Anxiety disorder 12/16/2014 Anxiety disorder in conditions classified elsewhere DEPRESSIVE DISORDER NEC 09/03/2006 Diabetes mellitus type 2, controlled 02/26/2010 Diverticulosis of colon (without mention of hemorrhage) H/O compression fracture of spine 12/16/2014 Hypertension Hypertrophy of testis 09/28/2014 HYPERTROPHY PROSTATE WITH OBST 10/31/2004 Internal hemorrhoids without mention of complication OBESITY NOS 10/31/2004 Periodic limb movement disorder (PLMD) 12/16/2014 RECURR DEPR PSYCHOS-UNSP 10/31/2004 Sciatica 12/09/2006 Skin cancer, basal cell 05/2013 left nose Unspecified hypothyroidism 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 John PAST SURGICAL HISTORY PAST SURGICAL HISTORY Procedure Laterality Date COLONOSCOPY FLX DX W/COLLJ SPEC WHEN PFRMD 05/06/2001 Colonoscopy COLONOSCOPY FLX DX W/COLLJ SPEC WHEN PFRMD 10/01/11 repeat 10 years MOHS HEAD/NECK STAGE 1 <=5 Left 06/03/2013 nose SIGMOIDOSCOPY FLX DX W/COLLJ SPEC BR/WA IF PFRMD 01/19/2004 Sigmoidoscopy VASECTOMY UNI/BI SPX W/POSTOP SEMEN EXAMS 1979 XCAPSL CTRC RMVL INSJ IO LENS PROSTH W/O ECP Bilateral [facility] CURRENT MEDICATIONS Current Outpatient Medications Medication Sig meloxicam (MOBIC) 15 mg tablet Take 1 tablet by mouth once daily. With food. traZODone (DESYREL) 50 mg tablet Take 1 tablet by mouth daily at bedtime. lisinopril (ZESTRIL, PRINIVIL) 10 mg tablet TAKE 1 TABLET DAILY LEVOXYL 125 mcg tablet TAKE 1 TABLET DAILY ON AN EMPTY STOMACH FOR THYROID JARDIANCE 10 mg tablet TAKE 1 TABLET DAILY tamsulosin (FLOMAX) 0.4 mg TAKE 1 CAPSULE TWICE A DAY carbidopa-levodopa (SINEMET 25-100) 25-100 mg per tablet Take 2 tablets by mouth three times daily. metFORMIN ER (GLUCOPHAGE XR) 500 mg 24 hr tablet TAKE 1 TABLET DAILY AT SUPPER rOPINIRole (REQUIP) 2 mg tablet TAKE 1 TABLET DAILY AT BEDTIME propylene glycoL (SYSTANE BALANCE) 0.6 % drop Use 1 Drop in both eyes four times daily. carbidopa-levodopa (SINEMET 25-100) 25-100 mg per tablet Take 2 tablets by mouth three times daily. gabapentin (NEURONTIN) 300 mg capsule Take 1 capsule by mouth daily at bedtime for 90 days. No current facility-administered medications for this visit. ALLERGIES: Aloe Vera and Diclofenac PERSONAL HISTORY: SOCIAL HISTORY Social History Tobacco Use Smoking status: Former Smoker Smokeless tobacco: Never Used Tobacco comment: smokes E Cigarettes started 2014 - quit 30 years ago, has smoked off and on last cigarette was in 2005 Vaping Use Vaping Use: Never used Substance Use Topics Alcohol use: Yes Comment: rare Drug use: No FAMILY HISTORY: FAMILY HISTORY FAMILY HISTORY Problem Relation Age of Onset Stroke Mother other (cirrhosis) Father Diabetes Brother No Ocular Disease No Family History REVIEW OF SYMPTOMS: The review of systems data was entered by the nurse and reviewed by ks Nursing Notes: Radha Arenas LPN 09/04/2021 1:22 PM Signed REVIEW OF SYSTEMS: General: The patient denies fatigue, denies weight loss, denies weight gain, denies feeling hot, and denies feelings of cold. Eyes: The patient denies glaucoma, notes eye injury/surgery, does not wear glasses or contacts. Ear/Nose/Throat: The patient notes allergies, denies hayfever, denies ear infections, and denies bloody noses. Cardiovascular: The patient denies chest pain, denies heart disease, notes high blood pressure,denies cardiac stent, denies prior heart attack, denies irregular heart beat, denies high cholesterol, denies poor circulation, denies heart failure, other cardiac issues, notes claudication, notes cold feet, denies peripheral arterial stent. Respiratory: The patient denies tuberculosis, denies pneumonia, denies frequent cough, denies pulmonary embolism, notes shortness of breath, and denies coughing up blood. Gastrointestinal: The patient denies difficulty swallowing, denies acid reflux, denies ulcers, notes vomiting, denies jaundice/hepatitis, denies gallbladder problems, denies black or tarry stools, denies hemorrhoids, denies bleeding from rectum, denies diverticulitis, denies constipation, notes diarrhea, denies loss of stool control, and denies hernias. Kidney/Bladder: The patient denies kidney stones, denies urine infections, and denies bloody urine. Skin: The patient notes a history of skin cancer, denies bleeding/changing moles, and denies a history of skin rash. Neurologic: The patient denies a history of epilepsy/convulsions, notes headaches, denies head/spinal injuries, and denies stroke/TIA. Psychiatric: The patient denies psychiatric medications, notes depression, and denies voices, denies substance abuse. Endocrine: The patient denies thyroid disorders, notes diabetes, and denies hormonal problems. Hematologic: The patient notes a history of bruising, denies bleeding, and denies anemia, denies blood clots. Infections: The patient notes a history of measles and mumps, denies rheumatic fever, and denies sexually transmitted diseases. Musculoskeletal: The patient notes back pain/injury, notes back problems, denies sciatica, notes knee/foot trouble, denies arthritis, or denies gout. When was patient's last Mammogram screening? N/A Last Colonoscopy: 2011 Radha Arenas LPN PHYSICAL EXAMINATION: General: The patient is 76 year old male, well nourished, well hydrated in no acute distress. The patient is oriented to time, place, and person. VITALS: Blood pressure 156/62, pulse 99, temperature 36.1 C (97 F), height 167.6 cm (5' 6 ), weight 96.6 kg (213 lb), SpO2 93 %. Body mass index is 34.38 kg/m . HEENT: Normal cephalic, ataumatic, pupils are equally round, sclera are anicteric, mucous membranes are moist, oropharynx is clear. Neck has no masses, asymmetry or lymphadenopathy. Thyroid is unremarkable. Respiratory: Clear to auscultation and percussion. Normal respiratory excursion and pattern. Cardiac: Examination is regular rate and rhythm. Abdominal exam: Soft, nontender, with no palpable masses. No hepatosplenomegaly. No palpable hernias. Rectal exam: exam deferred Extremities: no clubbing, cyanosis or edema. No adenopathy. Other: Upper back shows a centimeter and a half raised verrucous lesion with black pigmentation to it. It is extremely irregular in nature. There is no signs of cellulitis. There does not appear to be any cratered aspect to it. LABORATORY VALUES: As Noted RADIOLOGIC STUDIES: As Noted Assessment IMPRESSION: Atypical mole Pigmented skin lesion of uncertain nature (primary encounter diagnosis) Encounter for screening for malignant neoplasm of colon PLAN: I plan to perform lower endoscopy. We discussed the risks and benefits of the planned endoscopy. I have informed the patient that complications can occur including failure to complete the endoscopy and perforation. The patient had the opportunity to ask questions concerning the planned endoscopy. My staff has also explained the procedure to the patient in understandable terms and has given the patient printed material concerning the procedure. The patient freely consents to surgery. I plan to use golytely bowel preparation for endoscopy The patient has medical comorbidities for which I plan to perform the procedure under monitored anesthetic care. This will be done in [place] Diagnoses: (L81.9) Pigmented skin lesion of uncertain nature (primary encounter diagnosis) (D22.9) Atypical mole (Z12.11) Encounter for screening for malignant neoplasm of colon My findings have been communicated to Dr. Luke Barger MD via shared medical record. This note will be forwarded to Dr. Luke Barger MD. Return to Clinic: The patient is instructed to follow-up with me 1 week post operatively. Patient will be scheduled for a shave biopsy of the lesion on his back. Geovanny Baca III, MD UPDATED HISTORY AND PHYSICAL EXAMINATION SERVICE DATE: 10/17/2021 SERVICE TIME: 8:48 AM PHYSICAL EXAM MUST BE COMPLETED ON ADMISSION The History and Physical (completed in the past 30 days) has been reviewed and the patient has been examined. The contents accurately reflect the patient's condition with the following additions or revisions since the H&P was completed. Examination indicates no changes. This H&P can be found in the attached. SIGNATURE: Geovanny Baca III, MD PATIENT NAME: Richard Vargas DATE: October 17, 2021 TIME: 8:47 AM documented in this encounter [facility] 10-11-2021 Miscellaneous Notes The following approved medication requests have been transmitted electronically. Requested Prescriptions Signed Prescriptions Disp Refills meloxicam (MOBIC) 15 mg tablet 30 tablet 2 Sig: Take 1 tablet by mouth once daily. With food. Authorizing Provider: LUKE BARGER Ma OK to refill as ordered Luke Barger MD Last Office Visit: 09/04/2021 Future Office Visit: None Last Medication Refill: Meloxicam 09/04/2021 30 tab 0 refill Date of Last Labs: 06/28/2021 documented in this encounter [facility] 10-05-2021 Instructions Luzmaria Ruiz APRN.PHYSICIAN PRACTICE ADMINISTRATOR - 10/05/2021 9:01 AM EDT PATIENT PREOPERATIVE INSTRUCTIONS Geovanny Baca MD has scheduled you for your procedure at this surgery center: [facility]: [phone] -- [address] [facility] [address] [address]. Please read below carefully for your personalized instructions. Dietary Restrictions: - Follow bowel prep instructions: clear liquids need to be stopped 2 hours prior to schedule arrival at facility Medications: Unless instructed differently below, stay on all of your medications until your surgery. Approved medications to take the morning of surgery with a sip of water: Sinemet, Gabapentin, Levoxyl, Ropinirole, Tamsulosin DO NOT TAKE YOUR Lisinopril THE NIGHT BEFORE OR MORNING OF SURGERY - No diabetic medication the morning of surgery. - Accucheck day of surgery. If you take any medications for erectile dysfunction-Cialis (Tadalafil), Levitra, Staxyn (Vardenafil) Viagra (Sildenenafil please do not take these for 48 hours before surgery. If you start any new medications after today's visit, please contact the surgeon's office. Blood Thinning Medications: - Stop NSAIDS (Ibuprofen, Advil, Aleve, Motrin, Celebrex, Mobic, etc.) 7 days before surgery, as directed by your surgeon. - Stop Aspirin 7 days before surgery, as directed by your surgeon. - Stop Vitamin E, ALL multi-vitamins, herbals and dietary supplements 7 days before surgery. - You may take Tylenol (Acetaminophen) or any of your pain medications that do not contain aspirin or NSAIDS as needed. Important Reminders: - If you use CPAP/BIPAP, bring the machine with you to the surgery center. - If you are prescribed inhalers for breathing, continue using them. - Candy, mints, and tobacco products are NOT permitted the morning of surgery. - Hearing aids, dentures and glasses may be worn the morning of surgery. - NO jewelry, body piercings, makeup, hairpins or contacts are to be worn the day of surgery. If you develop symptoms such as a fever, cold, or flu, or have other changes to your health within TWO DAYS of scheduled surgery or the morning of surgery, please contact the surgery center above. Personal Belongings: -Please have photo ID and insurance cards. -If you do not have a copy of advance directives on file with us, please bring a copy with you on the day of surgery. - Leave ALL valuables and money at home or with family members. For Outpatient Procedures: - YOU MUST HAVE A RESPONSIBLE HOME ENERGY AUDITOR TAKE YOU HOME. A AUTOMOBILE OR TRUCK RENTAL DISPATCHER OR AUTOMATIC CENTRIFUGAL STATION OPERATOR CANNOT BE MADE A RESPONSIBLE HOME ENERGY AUDITOR. - We recommend that a responsible person stays with you overnight to take care of you. - You cannot stay in a hotel alone after outpatient surgery. You will not be permitted to have your surgery, if you do not have someone to take care of you. Arrival Time for Surgery: - The Surgery Center or hospital where you are having surgery will call the afternoon before surgery (or Friday for Friday surgery) with a scheduled arrival time. - If you have not heard by 4 pm, please contact the surgery center above. Please be aware that emergency situations arise, which may delay or change your surgical time. If this happens, we will notify you as soon as possible and regret any inconvenience. If you already have an Advance Directive, please fax a copy to [phone] or email to for it to be added to your chart. If you do not have an Advance Directive, you can find the appropriate form and more information at [email or web address]. We recommend that you complete the Advance Directive form found on the website and bring it with you the day of your surgery. It can be witnessed and scanned into your chart that day. Luzmaria Ruiz APRN.MARU documented in this encounter [facility] 10-05-2021 History and physical note HISTORY AND PHYSICAL EXAMINATION SERVICE DATE: 10/05/2021 SERVICE TIME: 8:58 AM PRIMARY CARE PHYSICIAN: Luke Barger MD REASON FOR VISIT: Richard Vargas is a 76 year old male who is scheduled for colonoscopy at the request of Dr. Geovanny Baca for consultation. My final recommendation will be communicated back to the requesting physician by way of shared medical record or letter. Subjective The patient has the following: ACTIVE PROBLEM LIST Hypothyroidism Obesity, Unspecified Bph With Urinary Obstruction Acquired Hypothyroidism Essential Hypertension ACTINIC KERATOSIS: Premalignant AK Bladder Neck Obstruction Diabetes Mellitus Type 2, Controlled (Hcc) Hyperlipidemia Thrombocytopenia Bcc (Basal Cell Carcinoma of Skin) Colon Cancer Screening Hypertrophy of Testis Intertrigo Eczematous Dermatitis Anxiety Disorder H/O Compression Fracture of Spine Periodic Limb Movement Disorder (Plmd) Vascular Parkinsonism (Hcc) Rls (Restless Legs Syndrome) Former Smoker COVID-19 Immunization Status Overdue - COVID-19 VACCINE (1) Overdue - never done No completion, postpone, frequency change, or communication history exists for this topic. CHIEF COMPLAINT: Pre-op exam HPI: LUIZA is a 76 yo seen for PAC due to scheduled above procedure for colon cancer screening. 09/04/2021 Dr. Baca HPI: The patient is a 76 year old male referred for endoscopy. Richard notes no history of colon complaints. The patient notes no history of upper GI complaints. Richard has undergone prior endoscopy. 09/2011 In addition the patient has a lesion on his upper back that has been there for quite some time and has been starting to grow. It is also been irritated and bleeds occasionally. The patient is being seen by me today at the request of Dr. Luke Barger MD for my opinion and advice regarding Atypical mole Pigmented skin lesion of uncertain nature (primary encounter diagnosis) Encounter for screening for malignant neoplasm of colon. REVIEW OF SYSTEMS: General: No weight loss, malaise or fevers. Neurological: RLS, on rx Positive for: Parkinson's disease (on rx) and peripheral neuropathy. Respiratory: +former smoker. No history of current cough or dyspnea, or pneumonia in the past 6 weeks. No history of respiratory/pulmonary symptoms or problems. Cardiovascular: Positive for: hyperlipidemia and hypertension Negative for: anticoagulation therapy, arrhythmia, atrial fibrillation, CAD, chest pain, CHF, congenital heart defect, DVT/PE, recent DC, murmur/valvular heart disease, open heart surgery and valve surgery. GI: No history of GI symptoms or problems. No history of esophageal varices, recent ascites, or ETOH greater than 2 drinks per day. : Positive for: BPH. Endocrine: Positive for: diabetes mellitus and hypothyroidism. Hematology: No history of bleeding or clotting disorder. Patient is not taking anti-coagulation or platelet medications. No history of hematological symptoms or problems. Oncology: +bcc Psych: No history of psychiatric symptoms or problems. Musculoskeletal: Positive for: joint pain. Skin: Negative for lesions, rash and itching. PAST MEDICAL HISTORY Diagnosis Date Anxiety disorder 12/16/2014 Anxiety disorder in conditions classified elsewhere DEPRESSIVE DISORDER NEC 09/03/2006 Diabetes mellitus type 2, controlled 02/26/2010 Diverticulosis of colon (without mention of hemorrhage) H/O compression fracture of spine 12/16/2014 Hypertension Hypertrophy of testis 09/28/2014 HYPERTROPHY PROSTATE WITH OBST 10/31/2004 Internal hemorrhoids without mention of complication OBESITY NOS 10/31/2004 Periodic limb movement disorder (PLMD) 12/16/2014 RECURR DEPR PSYCHOS-UNSP 10/31/2004 Sciatica 12/09/2006 Skin cancer, basal cell 05/2013 left nose Unspecified hypothyroidism 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 John PAST SURGICAL HISTORY Procedure Laterality Date COLONOSCOPY FLX DX W/COLLJ SPEC WHEN PFRMD 05/06/2001 Colonoscopy COLONOSCOPY FLX DX W/COLLJ SPEC WHEN PFRMD 10/01/2011 repeat 10 years MOHS HEAD/NECK STAGE 1 <=5 Left 06/03/2013 nose SIGMOIDOSCOPY FLX DX W/COLLJ SPEC BR/WA IF PFRMD 01/19/2004 Sigmoidoscopy SKIN BX, 1 LESION 09/18/2021 Upper Back, Shave Biopsy VASECTOMY UNI/BI SPX W/POSTOP SEMEN EXAMS 1979 XCAPSL CTRC RMVL INSJ IO LENS PROSTH W/O ECP Bilateral [facility] FAMILY HISTORY Problem Relation Age of Onset Stroke Mother other (cirrhosis) Father Diabetes Brother No Ocular Disease No Family History Social History Tobacco Use Smoking status: Former Smokeless tobacco: Never Tobacco comments: smokes E Cigarettes started 2014 - quit 30 years ago, has smoked off and on last cigarette was in 2005 Vaping Use Vaping Use: Former Substance Use Topics Alcohol use: Yes Comment: rare Drug use: No Prior to Admission medications as of 09/18/21 0838 Medication Sig Last Dose Taking meloxicam (MOBIC) 15 mg tablet Take 1 tablet by mouth once daily. With food. traZODone (DESYREL) 50 mg tablet Take 1 tablet by mouth daily at bedtime. peg 3350-Electrolytes (GOLYTELY) 236-22.74-6.74 -5.86 gram suspension Refer to printed prep instructions from your provider. lisinopril (ZESTRIL, PRINIVIL) 10 mg tablet TAKE 1 TABLET DAILY LEVOXYL 125 mcg tablet TAKE 1 TABLET DAILY ON AN EMPTY STOMACH FOR THYROID JARDIANCE 10 mg tablet TAKE 1 TABLET DAILY tamsulosin (FLOMAX) 0.4 mg TAKE 1 CAPSULE TWICE A DAY carbidopa-levodopa (SINEMET 25-100) 25-100 mg per tablet Take 2 tablets by mouth three times daily. metFORMIN ER (GLUCOPHAGE XR) 500 mg 24 hr tablet TAKE 1 TABLET DAILY AT SUPPER rOPINIRole (REQUIP) 2 mg tablet TAKE 1 TABLET DAILY AT BEDTIME propylene glycoL (SYSTANE BALANCE) 0.6 % drop Use 1 Drop in both eyes four times daily. gabapentin (NEURONTIN) 300 mg capsule Take 1 capsule by mouth daily at bedtime for 90 days. Medication Comments documented by Radha Arenas LPN on 09/04/2021 at 1316. Does not know medication, left list at home. ALLERGIES Allergen Reactions Aloe Vera Rash Diclofenac Intolerance leg edema Objective PHYSICAL EXAM: General: alert and oriented (x3), healthy appearance and obese. Pertinent negatives noted - not distressed. Skin: normal color, no rash or lesions. HEENT: EOM intact and pupils equal round. Pertinent negatives noted - no carotid bruit. Cardiovascular: regular rate and rhythm, normal S1 and S2, no rub, murmurs, or gallop. Respiratory: normal breath sounds, no wheezes or crackles. No chest wall deformity or tenderness. Abdomen: soft. Pertinent negatives noted - not tender. Extremities: Positive for edema (BLE 1+). Neurological: normal cognition and motor skills. Gait normal. No weakness or sensory deficit. PAIN ASSESSMENT: VITALS: BP 134/68 Pulse 67 Temp (Src) 97 (Temporal) Resp 16 Ht 5' 5.5 (1.66m) Wt 215 lb (97.5kg) SpO2 93% BMI 35.22 kg/(m^2). Diagnostic tests reviewed for today's visit: Lab Value Units Date High Low HB 12.5 g/dL 06/28/2021 17.0 13.0 HCT 39.8 % 06/28/2021 51.0 39.0 WBC 3.93 k/uL 06/28/2021 11.00 3.70 PLT 82 k/uL 06/28/2021 400 150 NA 142 mmol/L 06/28/2021 144 136 K 5.3 mmol/L 06/28/2021 5.1 3.7 GLUC 136 mg/dL 06/28/2021 99 74 BUN 29 mg/dL 06/28/2021 24 9 CREAT 1.11 mg/dL 06/28/2021 1.22 0.73 PTSEC No results within date range. INR No results within date range. APTT No results within date range. ALT 7 U/L 06/28/2021 54 10 AST 33 U/L 06/28/2021 40 14 TBILI 0.9 mg/dL 06/28/2021 1.3 0.2 TSH 3.340 mIU/L 06/28/2021 4.200 0.270 Lab Value Units Date High Low HCGQT No results within date range. UHCG No results within date range. HCG, BODY* No results within date range. Lab Value Units Date High Low ABORHD No results within date range. ABSCREEN No results within date range. Hemoglobin A1C (%) Date Value 06/28/2021 7.1 04/25/2020 6.5 11/08/2019 6.2 07/07/2019 7.2 04/22/2019 6.7 01/08/2019 7.1 No results found for this or any previous visit (from the past 8760 hour(s)). No results found for this or any previous visit (from the past 31612 hour(s)). Assessment Acquired hypothyroidism Assessment: stable on rx BPH with urinary obstruction Assessment: on rx Diabetes mellitus type 2, controlled Assessment: controlled on oral agents Hemoglobin A1C (%) Date Value 06/28/2021 7.1 04/25/2020 6.5 Essential hypertension Assessment: controlled on rx Last 14 BP Last 14 Encounter BP Readings: Date: BP: 10/05/2021 134/68 09/04/2021 156/62 09/04/2021 138/74 08/24/2021 148/62 07/12/2021 160/70 04/21/2020 128/70 11/19/2019 120/74 08/13/2019 122/70 04/22/2019 122/70 01/20/2019 150/90 05/22/2018 130/84 03/21/2018 144/72 08/07/2015 111/69 07/13/2015 108/56 Hyperlipidemia Assessment: diet controlled RLS (restless legs syndrome) Assessment: on rx Vascular parkinsonism (HCC) Assessment: controlled on rx OBESITY NOS Assessment: Body mass index is 35.23 kg/m . BCC (basal cell carcinoma of skin) Assessment: s/p excision Former smoker Assessment: vague hx given, off and on most of adult life, denies asthma or COPD Thrombocytopenia Assessment: recheck today, previously 82 3 mos ago, stable Platelet Count Date Value Ref Range Status 10/05/2021 79 (L) 150 - 400 k/uL Final Comment: No clot detected Dee Activity Status Index: METS: Climb a flight of stairs or walk up a hill (5.50 METs) DASI Score: 5.5 Patient denies any chest pain or undue shortness of breath with the above physical activity. Clinical Frailty Scale: 4. Apparently vulnerable STOP-Bang Score: Snores loudly Has been observed to stop breathing or choking/gasping during sleep Has or is being treated for high blood pressure BMI greater than 35 kg/m^2 Patient over 50 years old Has a large neck Male patient Denies feeling tired, fatigued, or sleepy during the daytime STOP-Bang Score: 7 [id number] Score: Age: >=75 Sex: male CHF history: No Hypertension history: Yes Stroke/TIA/thromboembolism history: No Vascular disease history: No Diabetes history: Yes [id number] Score: 4 ARISCAT Score: Age: 51-80 Preoperative SpO2: >=96% Respiratory infection in the last month: No Preoperative anemia: No Surgical incision: peripheral Duration of surgery: <2 hrs Emergency procedure: No ARISCAT Score: 3 ASA Class: 3 ANESTHESIA FINDINGS: Intubation History: No history of difficult intubation Significant Anesthesia Considerations: none Airway History: No history of difficult airway I - PHYSICAL EVALUATION AIRWAYTracheostomy tube not present Mallampati: II. TM distance: >3 FB. Neck ROM: full ROM without neurological symptoms. Mouth opening: adequate. Short neck: no. Thick neck: yes DENTAL Additional comments: NONE. II - ANESTHESIA PLAN ASA Score: 3 Anesthetic Plan: other Anesthetic plan additional comments: *PACC/TCI - anesthesia choice. Informed Consent Anesthetic risks, benefits, alternatives, personnel and consent discussed: yes. Patient / Responsible Republican agrees to proceed: yes Patient / Surrogate agrees to blood products: blood products not planned Prepared for Surgery: optimally prepared for surgery. CONSULTS: Patient does not require consults for optimization at this time Planned Anesthetic: other anesthesia choice The Following Tests/Procedures Have Been Initiated: No orders of the defined types were placed in this encounter. Instructions Given to Patient: Instructions located in the after visit summary. Patient given verbal and written preop instructions and voices comprehension and compliance. SIGNATURE: Luzmaria Ruiz APRN.CNP PATIENT NAME: Richard Vargas DATE: October 05, 2021 TIME: 8:58 AM PAGER/CONTACT #: documented in this encounter [facility] 09-18-2021 Instructions Sulma Davis - 09/18/2021 9:02 AM EDT The following instructions are important for you related to your office visit today with the [facility] General Surgeons. Instructions After Skin Excison and Cautery You can remove the dressing in 24 hours. If the dressing becomes soaked or had significant drainage, the dressing should be changed. If there is minor bleeding from this skin edge, you should hold pressure on the incision until the bleeding stops. If there is continued bleeding, you should contact our office immediately. If the wound shows signs of redness, inflammation, or purulent drainage, you should contact our office immediately. After that time, you may wash the wound with gentle soap and water. The wound should not be immersed in a pool, bathtub, or even hot tub. We prefer to check the incision. Please make an appointment to return to our office in 1 week. If you note any additional difficulties, questions, or concerns, you should contact our office immediately @ [phone] and ask to be transferred to the General Surgery department. documented in this encounter [facility] 09-18-2021 History of Presen t illness Narrative Preoperative diagnosis: 1.5 cm atypical skin lesion to upper back Postoperative diagnosis: The same Procedure: Shave biopsy of 1.5 cm atypical skin lesion to upper back Surgeon: Keven Procedure: Upper back was sterilely prepped and draped in usual fashion. 1% lidocaine plain was injected. Shave biopsy was performed of this and sent to pathology for permanent sectioning. Electrocautery was used for good pneumostasis. Sterile dressings were applied. The patient tolerated the procedure well. UNIVERSAL PROTOCOL / SAFETY CHECKLIST Procedure to be Performed: Shave Biopsy Skin Lesion Upper Back Sign In: A Moment of CARE was completed. Personnel directly involved with the procedure wore the appropriate PPE (Personal Protective Equipment). Patient/Surrogate Stated/Verified: PATIENT VERIFIED(optional for EMERGENT procedures): Patient name, Date of , Relevant allergies and The intended procedure Time Out Communication: Intended patient and procedure match the source documents. Consent documented and matches the intended procedure. Sign Out: SIGN OUT (optional for EMERGENT procedures): All specimen containers correctly labeled. Sulma Davis documented in this encounter [facility] 09-04-2021 Instructions Geovanny Baca MD - 09/04/2021 1:42 PM EDT Images from the original note were not included. Bowel Preparation Instructions for: Golytely, Nulytely, Trilyte or Colyte (polyethylene glycol 3350 and electrolytes) IF YOU DO NOT FOLLOW THESE DIRECTIONS, YOUR COLONOSCOPY WILL BE CANCELLED. Dickinson Instructions: Your bowel must be empty so that your doctor can clearly view your colon. Follow all of the instructions in this handout EXACTLY as they are written. Do NOT eat any solid food the ENTIRE day before your colonoscopy. Drink only clear liquids. Buy your bowel preparation at least 5 days before your colonoscopy. TRANSPORTATION on the Day of Your Exam A responsible person MUST be present with you at Check In prior to your colonoscopy and REMAIN in the endoscopy area until you are discharged. You are NOT ALLOWED to drive, take a taxi or bus, or leave the Endoscopy Center ALONE. If you do not have a responsible truck driver (family member or friend) with you to take you home, your exam cannot be done with sedation and will be cancelled. Please bring a list of all of your current medications, including any Over-the Counter medications with you. Medications If you take insulin, diabetic medications or blood thinners such as Coumadin (warfarin), Plavix (clopidogrel), Ticlid (ticlopidine hydrochloride), Agrylin (anagrelide), Xarelto (Rivaroxaban), Pradaxa (Dabigatran), Eliquis (Apixaban), and Effient (Prasugrel). You MUST call the doctors who orders those medicines for instructions on altering the dosage before your colonoscopy. All other medications should be taken the day of the exam with a sip of water including ASPIRIN. Five (5) Days Before Your Colonoscopy Do NOT take medicines that stop diarrhea - such as Imodium, Kaopectate, or Pepto Bismol. Do NOT take fiber supplements - such as Metamucil, Citrucel, or Perdiem. Do NOT take products that contain iron - such as multi-vitamins (the label lists what is in the products). Do NOT take Vitamin E. Buy the prescription bowel preparation solution at your local pharmacy or [facility]. 01/2019 Bowel Preparation Instructions for: Golytely, Nulytely, Trilyte or Colyte (polyethylene glycol 3350 and electrolytes) Three (3) Days Before Your Colonoscopy Do NOT eat high-fiber foods - such as popcorn, beans, seeds (flax, sunflower, quinoa), multigrain bread, nuts, salad/vegetables, or fresh and dried fruit. One (1) Day Before Your Colonoscopy Only drink clear liquids the ENTIRE DAY before your colonoscopy. Do NOT eat any solid foods. Drink at least 8 ounces of clear liquids every hour after waking up. The clear liquids you can drink include: Clear Liquid (NO RED LIQUIDS) DO NOT DRINK Gatorade, Pedialyte or Powerade Clear broth or bouillon Coffee or tea (no milk or non-dairy creamer) Carbonated and non-carbonated soft drinks Bennie-Aid or other fruit flavored drinks Strained fruit juices (no pulp) Jell-O, popsicles, hard candy Water Alcohol Milk or non-dairy creamers Noodles or vegetables in soup Juice with pulp Liquid you cannot see through The bowel preparation solution will be consumed in two parts. Mix the solution the evening before your colonoscopy and refrigerate before drinking. You may add the flavor pack that came with the bowel preparation. Do NOT add ice, sugar or any other flavorings to the solution. Part 1 At 6:00 PM - Evening before your colonoscopy Drink an 8-oz glass of bowel preparation every 10 minutes for a total of 8 glasses. You may continue to drink clear liquids until midnight. Part 2 On the day of your colonoscopy you may drink clear liquids up to (three) 3 hours before your procedure. 4 1/2 hours before your colonoscopy Drink an 8-oz glass of bowel preparation every 10 minutes for a total of 8 glasses. Fifteen (15) minutes later, drink an 8-oz glass of clear liquids every 15 minutes for a total of 2 glasses. You may continue to drink clear liquids up to (three) 3 hours before your exam. 3 01/2019 documented in this encounter [facility] 09-04-2021 History of Presen t illness Narrative HISTORY AND PHYSICAL Richard Vargas 1945 REFERRING PHYSICIAN: Luke Barger MD CHIEF COMPLAINT: Consult (seborrheoc keratosis mole) HPI: The patient is a 76 year old male referred for endoscopy. Richard notes no history of colon complaints. The patient notes no history of upper GI complaints. Richard has undergone prior endoscopy. 09/2011 In addition the patient has a lesion on his upper back that has been there for quite some time and has been starting to grow. It is also been irritated and bleeds occasionally. The patient is being seen by me today at the request of Dr. Luke Barger MD for my opinion and advice regarding Atypical mole Pigmented skin lesion of uncertain nature (primary encounter diagnosis) Encounter for screening for malignant neoplasm of colon. PAST MEDICAL HISTORY Diagnosis Date Anxiety disorder 12/16/2014 Anxiety disorder in conditions classified elsewhere DEPRESSIVE DISORDER NEC 09/03/2006 Diabetes mellitus type 2, controlled 02/26/2010 Diverticulosis of colon (without mention of hemorrhage) H/O compression fracture of spine 12/16/2014 Hypertension Hypertrophy of testis 09/28/2014 HYPERTROPHY PROSTATE WITH OBST 10/31/2004 Internal hemorrhoids without mention of complication OBESITY NOS 10/31/2004 Periodic limb movement disorder (PLMD) 12/16/2014 RECURR DEPR PSYCHOS-UNSP 10/31/2004 Sciatica 12/09/2006 Skin cancer, basal cell 05/2013 left nose Unspecified hypothyroidism 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 John PAST SURGICAL HISTORY Procedure Laterality Date COLONOSCOPY FLX DX W/COLLJ SPEC WHEN PFRMD 05/06/2001 Colonoscopy COLONOSCOPY FLX DX W/COLLJ SPEC WHEN PFRMD 10/01/11 repeat 10 years MOHS HEAD/NECK STAGE 1 <=5 Left 06/03/2013 nose SIGMOIDOSCOPY FLX DX W/COLLJ SPEC BR/WA IF PFRMD 01/19/2004 Sigmoidoscopy VASECTOMY UNI/BI SPX W/POSTOP SEMEN EXAMS 1978 XCAPSL CTRC RMVL INSJ IO LENS PROSTH W/O ECP Bilateral [facility] Current Outpatient Medications Medication Sig meloxicam (MOBIC) 15 mg tablet Take 1 tablet by mouth once daily. With food. traZODone (DESYREL) 50 mg tablet Take 1 tablet by mouth daily at bedtime. lisinopril (ZESTRIL, PRINIVIL) 10 mg tablet TAKE 1 TABLET DAILY LEVOXYL 125 mcg tablet TAKE 1 TABLET DAILY ON AN EMPTY STOMACH FOR THYROID JARDIANCE 10 mg tablet TAKE 1 TABLET DAILY tamsulosin (FLOMAX) 0.4 mg TAKE 1 CAPSULE TWICE A DAY carbidopa-levodopa (SINEMET 25-100) 25-100 mg per tablet Take 2 tablets by mouth three times daily. metFORMIN ER (GLUCOPHAGE XR) 500 mg 24 hr tablet TAKE 1 TABLET DAILY AT SUPPER rOPINIRole (REQUIP) 2 mg tablet TAKE 1 TABLET DAILY AT BEDTIME propylene glycoL (SYSTANE BALANCE) 0.6 % drop Use 1 Drop in both eyes four times daily. carbidopa-levodopa (SINEMET 25-100) 25-100 mg per tablet Take 2 tablets by mouth three times daily. gabapentin (NEURONTIN) 300 mg capsule Take 1 capsule by mouth daily at bedtime for 90 days. No current facility-administered medications for this visit. ALLERGIES: Aloe Vera and Diclofenac PERSONAL HISTORY: Social History Tobacco Use Smoking status: Former Smoker Smokeless tobacco: Never Used Tobacco comment: smokes E Cigarettes started 2014 - quit 30 years ago, has smoked off and on last cigarette was in 2005 Vaping Use Vaping Use: Never used Substance Use Topics Alcohol use: Yes Comment: rare Drug use: No FAMILY HISTORY: FAMILY HISTORY Problem Relation Age of Onset Stroke Mother other (cirrhosis) Father Diabetes Brother No Ocular Disease No Family History REVIEW OF SYMPTOMS: The review of systems data was entered by the nurse and reviewed by ks Nursing Notes: Radha Arenas LPN 09/04/2021 1:22 PM Signed REVIEW OF SYSTEMS: General: The patient denies fatigue, denies weight loss, denies weight gain, denies feeling hot, and denies feelings of cold. Eyes: The patient denies glaucoma, notes eye injury/surgery, does not wear glasses or contacts. Ear/Nose/Throat: The patient notes allergies, denies hayfever, denies ear infections, and denies bloody noses. Cardiovascular: The patient denies chest pain, denies heart disease, notes high blood pressure,denies cardiac stent, denies prior heart attack, denies irregular heart beat, denies high cholesterol, denies poor circulation, denies heart failure, other cardiac issues, notes claudication, notes cold feet, denies peripheral arterial stent. Respiratory: The patient denies tuberculosis, denies pneumonia, denies frequent cough, denies pulmonary embolism, notes shortness of breath, and denies coughing up blood. Gastrointestinal: The patient denies difficulty swallowing, denies acid reflux, denies ulcers, notes vomiting, denies jaundice/hepatitis, denies gallbladder problems, denies black or tarry stools, denies hemorrhoids, denies bleeding from rectum, denies diverticulitis, denies constipation, notes diarrhea, denies loss of stool control, and denies hernias. Kidney/Bladder: The patient denies kidney stones, denies urine infections, and denies bloody urine. Skin: The patient notes a history of skin cancer, denies bleeding/changing moles, and denies a history of skin rash. Neurologic: The patient denies a history of epilepsy/convulsions, notes headaches, denies head/spinal injuries, and denies stroke/TIA. Psychiatric: The patient denies psychiatric medications, notes depression, and denies voices, denies substance abuse. Endocrine: The patient denies thyroid disorders, notes diabetes, and denies hormonal problems. Hematologic: The patient notes a history of bruising, denies bleeding, and denies anemia, denies blood clots. Infections: The patient notes a history of measles and mumps, denies rheumatic fever, and denies sexually transmitted diseases. Musculoskeletal: The patient notes back pain/injury, notes back problems, denies sciatica, notes knee/foot trouble, denies arthritis, or denies gout. When was patient's last Mammogram screening? N/A Last Colonoscopy: 2011 Radha Arenas LPN PHYSICAL EXAMINATION: General: The patient is 76 year old male, well nourished, well hydrated in no acute distress. The patient is oriented to time, place, and person. VITALS: Blood pressure 156/62, pulse 99, temperature 36.1 C (97 F), height 167.6 cm (5' 6 ), weight 96.6 kg (213 lb), SpO2 93 %. Body mass index is 34.38 kg/m . HEENT: Normal cephalic, ataumatic, pupils are equally round, sclera are anicteric, mucous membranes are moist, oropharynx is clear. Neck has no masses, asymmetry or lymphadenopathy. Thyroid is unremarkable. Respiratory: Clear to auscultation and percussion. Normal respiratory excursion and pattern. Cardiac: Examination is regular rate and rhythm. Abdominal exam: Soft, nontender, with no palpable masses. No hepatosplenomegaly. No palpable hernias. Rectal exam: exam deferred Extremities: no clubbing, cyanosis or edema. No adenopathy. Other: Upper back shows a centimeter and a half raised verrucous lesion with black pigmentation to it. It is extremely irregular in nature. There is no signs of cellulitis. There does not appear to be any cratered aspect to it. LABORATORY VALUES: As Noted RADIOLOGIC STUDIES: As Noted Assessment IMPRESSION: Atypical mole Pigmented skin lesion of uncertain nature (primary encounter diagnosis) Encounter for screening for malignant neoplasm of colon PLAN: I plan to perform lower endoscopy. We discussed the risks and benefits of the planned endoscopy. I have informed the patient that complications can occur including failure to complete the endoscopy and perforation. The patient had the opportunity to ask questions concerning the planned endoscopy. My staff has also explained the procedure to the patient in understandable terms and has given the patient printed material concerning the procedure. The patient freely consents to surgery. I plan to use golytely bowel preparation for endoscopy The patient has medical comorbidities for which I plan to perform the procedure under monitored anesthetic care. This will be done in [place] Diagnoses: (L81.9) Pigmented skin lesion of uncertain nature (primary encounter diagnosis) (D22.9) Atypical mole (Z12.11) Encounter for screening for malignant neoplasm of colon My findings have been communicated to Dr. Luke Barger MD via shared medical record. This note will be forwarded to Dr. Luke Barger MD. Return to Clinic: The patient is instructed to follow-up with me 1 week post operatively. Patient will be scheduled for a shave biopsy of the lesion on his back. Geovanny Baca III, MD documented in this encounter [facility] 09-04-2021 Nurse Note REVIEW OF SYSTEMS: General: The patient denies fatigue, denies weight loss, denies weight gain, denies feeling hot, and denies feelings of cold. Eyes: The patient denies glaucoma, notes eye injury/surgery, does not wear glasses or contacts. Ear/Nose/Throat: The patient notes allergies, denies hayfever, denies ear infections, and denies bloody noses. Cardiovascular: The patient denies chest pain, denies heart disease, notes high blood pressure,denies cardiac stent, denies prior heart attack, denies irregular heart beat, denies high cholesterol, denies poor circulation, denies heart failure, other cardiac issues, notes claudication, notes cold feet, denies peripheral arterial stent. Respiratory: The patient denies tuberculosis, denies pneumonia, denies frequent cough, denies pulmonary embolism, notes shortness of breath, and denies coughing up blood. Gastrointestinal: The patient denies difficulty swallowing, denies acid reflux, denies ulcers, notes vomiting, denies jaundice/hepatitis, denies gallbladder problems, denies black or tarry stools, denies hemorrhoids, denies bleeding from rectum, denies diverticulitis, denies constipation, notes diarrhea, denies loss of stool control, and denies hernias. Kidney/Bladder: The patient denies kidney stones, denies urine infections, and denies bloody urine. Skin: The patient notes a history of skin cancer, denies bleeding/changing moles, and denies a history of skin rash. Neurologic: The patient denies a history of epilepsy/convulsions, notes headaches, denies head/spinal injuries, and denies stroke/TIA. Psychiatric: The patient denies psychiatric medications, notes depression, and denies voices, denies substance abuse. Endocrine: The patient denies thyroid disorders, notes diabetes, and denies hormonal problems. Hematologic: The patient notes a history of bruising, denies bleeding, and denies anemia, denies blood clots. Infections: The patient notes a history of measles and mumps, denies rheumatic fever, and denies sexually transmitted diseases. Musculoskeletal: The patient notes back pain/injury, notes back problems, denies sciatica, notes knee/foot trouble, denies arthritis, or denies gout. When was patient's last Mammogram screening? N/A Last Colonoscopy: 2011 Radha Arenas LPN documented in this encounter [facility] 09-04-2021 History of Presen t illness Narrative Chief Complaint Patient presents with: Follow Up: for fall and injury HPI Richard Vargas is a 76 year old male who presents here today for Follow up. Pt was in UC 08/24/21 due to fall, landing on his right hip. He was doing some yard work and went to get up and the grass was slippery and he fell landing mostly on the hip. He had pain in the lower back and right hip. Fall and injury occurred on 08/21/21. No radiation of pain into the leg, no numbness or tingling in the leg. No loss of bowel or bladder control. XR of lumbar, sacrum and hip done. He was treated with 9 day taper of Prednisone (only took about 4 days, as he spilled the medicine) and Lidoderm patches. Pt called office on 08/27/21 with c/o continued pain, PCP treated with a few Tramadol. He has tried Aleve with little relief. He is still having pain in the right hip, lower back and buttocks. Rated pain today 7 out of 10 on pain scale, constant sore. He states he denies much pain with sitting or laying down. Has most pain when he has to get up or move around. No numbness or tingling down leg. He has used both heat and ice, icy hot rub, Aleve. He still has some Tramadol, doesn't feel like it helped much with the pain. Images: XR LUMBAR 3V AP/LAT/L5-S1, XR HIP 3V PELV+ AP/LAT RT, XR SACRUM/COCCYX 3V AP/LAT Comparison: None. Lumbar spine RESULT: Left sided convex curvature of the lumbar spine. Intervertebral disc space narrowing and endplate osteophyte formation at multiple levels in the lumbar spine. No fracture. SI joints RESULT: SI joints appear to be intact. No fracture or dislocation identified. No erosions are seen. Pelvis RESULT: Superior right hip joint space is maintained. Osteophyte formation on the right femoral head and acetabulum. Degenerative cysts in the right superior acetabulum. Widening of the right femoral neck which may be congenital, remote trauma , or related to fibrous dysplasia. Superior left hip joint space is maintained. Osteophyte formation of the left superior acetabulum. No fracture or dislocation of the hips. Remainder of the imaged bony pelvis appear to be intact. Pubic symphysis is intact. IMPRESSION IMPRESSION: No acute osseous abnormality identified. 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 Osteoarthrosis of the hips. Anxiety & Sleep: He has trouble falling asleep, tries to go to bed around midnight but then lays there most the night till around 4:30 AM with his mind running. He has not used any Melatonin, Benadryl, Tylenol PM, etc. He denies sleeping much through the day. He states he has a lot of projects he was working on prior to falling. 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 He denies sleeping any better when he was active. Skin: Growth on his back and left butt cheek. Would like to go to [facility] or Sur[facility]. Past medical history, appointments, medications, allergies reviewed. Previous Medical History PAST MEDICAL HISTORY Diagnosis Date Anxiety disorder 12/16/2014 Anxiety disorder in conditions classified elsewhere DEPRESSIVE DISORDER NEC 09/03/2006 Diabetes mellitus type 2, controlled 02/26/2010 Diverticulosis of colon (without mention of hemorrhage) H/O compression fracture of spine 12/16/2014 Hypertension Hypertrophy of testis 09/28/2014 HYPERTROPHY PROSTATE WITH OBST 10/31/2004 Internal hemorrhoids without mention of complication OBESITY NOS 10/31/2004 Periodic limb movement disorder (PLMD) 12/16/2014 RECURR DEPR PSYCHOS-UNSP 10/31/2004 Sciatica 12/09/2006 Skin cancer, basal cell 05/2013 left nose Unspecified hypothyroidism 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 John Previous Surgical History PAST SURGICAL HISTORY Procedure Laterality Date COLONOSCOPY FLX DX W/COLLJ SPEC WHEN PFRMD 05/06/2001 Colonoscopy COLONOSCOPY FLX DX W/COLLJ SPEC WHEN PFRMD 10/01/11 repeat 10 years MOHS HEAD/NECK STAGE 1 <=5 Left 06/03/2013 nose SIGMOIDOSCOPY FLX DX W/COLLJ SPEC BR/WA IF PFRMD 01/19/2004 Sigmoidoscopy VASECTOMY UNI/BI SPX W/POSTOP SEMEN EXAMS 1978 XCAPSL CTRC RMVL INSJ IO LENS PROSTH W/O ECP Bilateral [facility] Family History FAMILY HISTORY Problem Relation Age of Onset Stroke Mother other (cirrhosis) Father Diabetes Brother No Ocular Disease No Family History Patient Allergies ALLERGIES Allergen Reactions Aloe Vera Rash Diclofenac Intolerance leg edema Current Medications Current Outpatient Medications on File Prior to Visit Medication Sig lidocaine (LIDODERM) 5 % Apply 1 Patch as directed every 24 hours for 10 days. Remove old patch prior to placing new patch. Location: back and hip are where pain is located on right side. lisinopril (ZESTRIL, PRINIVIL) 10 mg tablet TAKE 1 TABLET DAILY LEVOXYL 125 mcg tablet TAKE 1 TABLET DAILY ON AN EMPTY STOMACH FOR THYROID JARDIANCE 10 mg tablet TAKE 1 TABLET DAILY tamsulosin (FLOMAX) 0.4 mg TAKE 1 CAPSULE TWICE A DAY carbidopa-levodopa (SINEMET 25-100) 25-100 mg per tablet Take 2 tablets by mouth three times daily. metFORMIN ER (GLUCOPHAGE XR) 500 mg 24 hr tablet TAKE 1 TABLET DAILY AT SUPPER rOPINIRole (REQUIP) 2 mg tablet TAKE 1 TABLET DAILY AT BEDTIME levothyroxine (LEVOXYL) 137 mcg tablet Take 1 tablet by mouth once daily. Take on empty stomach. For thyroid. propylene glycoL (SYSTANE BALANCE) 0.6 % drop Use 1 Drop in both eyes four times daily. tiotropium (SPIRIVA WITH HANDIHALER) 18 mcg inhalation capsule Inhale 1 capsule as instructed once daily. Use with handihaler. (Patient not taking: Reported on 07/12/2021 ) carbidopa-levodopa (SINEMET 25-100) 25-100 mg per tablet Take 2 tablets by mouth three times daily. budesonide-formoterol (SYMBICORT) 80-4.5 mcg/actuation inhaler Inhale 2 Puffs as instructed twice daily. (Patient not taking: Reported on 07/12/2021 ) albuterol HFA (PROVENTIL HFA, VENTOLIN HFA) 90 mcg/actuation inhaler Inhale 2 Puffs as instructed every 4 hours as needed for Wheezing/Shortness of Breath. (Patient not taking: Reported on 07/12/2021 ) gabapentin (NEURONTIN) 300 mg capsule Take 1 capsule by mouth daily at bedtime for 90 days. No current facility-administered medications on file prior to visit. Social History Social History Tobacco Use Smoking status: Former Smoker Smokeless tobacco: Never Used Tobacco comment: smokes E Cigarettes started 2015 - quit 30 years ago, has smoked off and on last cigarette was in 2005 Vaping Use Vaping Use: Never used Substance Use Topics Alcohol use: Yes Comment: rare Drug use: No EXAM: BP 138/74 Pulse 62 Resp 16 Wt 97.5 kg (215 lb) BMI 34.15 kg/m General Appearance: Well appearing, alert, in no acute distress, well-hydrated, well nourished. and Overweight. Skin: seborrheic warty growth on the left upper back, irregular; left butt cheek with normal 0.5 cm freddy keratosis Back: tenderness on palpation to the right lower back and upper buttock Lungs: Lungs clear to auscultation. No wheezing, rhonchi, rales.. Heart: RRR without murmur, gallop, or rubs. No ectopy. Extremities: right leg; no pain with movement, no pain on palpation to outer hip or right side groin, good ROM. Health Maintenance List COVID-19 VACCINE(1) Never done BP CONTROLLED (<130/80) Never done SHINGRIX VACCINE(2 of 3) due on 12/27/2013 ADVANCE DIRECTIVE DISCUSSION Never done DIABETIC FOOT EXAM due on 04/21/2021 URINE ALBUMIN:CREATININE RATIO due on 04/25/2021 INFLUENZA(1) due on 10/18/2021 HBA1C due on 12/29/2021 DILATED RETINAL EXAM due on 04/25/2022 LDL CHOLESTEROL due on 06/28/2022 ANNUAL PCP TEAM CHRONIC DISEASE VISIT due on 07/12/2022 DEPRESSION SCREENING due on 07/12/2022 DTAP,TDAP,TD(3 - Td or Tdap) due on 07/19/2029 SPIROMETRY Completed HEPATITIS C SCREENING Completed PNEUMOCOCCAL: 65+ Completed Data reviewed UC visit and XR ASSESSMENT/PLAN: 1. Acute right-sided low back pain without sciatica - ICD9: 724.2, ICD10: M54.50 (primary diagnosis) Continue with Heat or ice Start Mobic 15 mg daily 2. Right hip pain - ICD9: 719.45, ICD10: M25.551 Continue with Heat or ice Start Mobic 15 mg daily 3. Seborrheic keratosis - ICD9: 702.19, ICD10: L82.1 Consult Gen Surgery 4. Difficulty sleeping - ICD9: 780.50, ICD10: G47.9 Start Trazodone 50 mg daily Follow up as planned in September or sooner if needed. I agree with the Chief Complaint, ROS, and Past Histories independently gathered by the clinical patient support specialist and the remaining scribed note accurately describes my personal service to the patient. Medical Decision Making: Problems: Low: Acute, uncomplicated illness or injury Moderate: 1+ chronic illnesses with change Risk: Moderate: Drug management Medical Decision Making Level: 4 - Moderate Luke Barger MD The documentation for this note was completed by Avis Caruso Ma acting as scribe for Luke Barger MD. September 04, 2021 8:52 AM. Avis Caruso Ma documented in this encounter [facility] 08-28-2021 Miscellaneous Notes See other phone note Luke Barger MD Patient reports he was seen in [facility] on 08/24/21 after a fall. He was experiencing lower back and right hip discomfort and was prescribed prednisone and lidocaine patches. Xrays were also completed-no fractures, has osteoarthritis of the hips. Patient has F/U appt on 09/04/[address] Barger. Patient calling this morning to state his he is experiencing moderate pain to lower back and right hip. 7 out of 10 on pain scale. Taking Advil but not helping. Reports the lidocaine patches do not help his pain. He is requesting a short term supply of any other pain relieving medication if provider is agreeable, until can be seen on 09/04. Requesting [facility] in [place]. Please call patient with advise. Thank you. documented in this encounter [facility] 08-27-2021 Miscellaneous Notes Patient went to express care. Adolfo Ryder APRN.MARU Patient calling said he had fall several days ago and having back pain and side pain since Friday. Advised to go to express care for evaluation, aware xray is open until 5 pm today and 8 am to 12 noon on Friday. Patient said he was going to come in now, so he can get something for pain. documented in this encounter [facility] 07-12-2021 Instructions Filomena Allen APRN.CNP - 07/12/2021 2:43 PM EDT 1.) Get repeat labs in 1 month. 2.) Complete stool sample to check for blood. 3.) [facility] [place] 4.) Keep scheduled appointment with Pulmonology at [place]. 5.) Continue to work on eating a low carb diet, increase protein and veggies. 6.) Follow up in 3 months or sooner as needed. documented in this encounter [facility] 07-12-2021 History of Presen t illness Narrative Medicare Yearly Visit Medical B eligibilty date Date of last exam PAST MEDICAL HISTORY Diagnosis Date Anxiety disorder 12/16/2014 Anxiety disorder in conditions classified elsewhere DEPRESSIVE DISORDER NEC 09/03/2006 Diabetes mellitus type 2, controlled 02/26/2010 Diverticulosis of colon (without mention of hemorrhage) H/O compression fracture of spine 12/16/2014 Hypertension Hypertrophy of testis 09/28/2014 HYPERTROPHY PROSTATE WITH OBST 10/31/2004 Internal hemorrhoids without mention of complication OBESITY NOS 10/31/2004 Periodic limb movement disorder (PLMD) 12/16/2014 RECURR DEPR PSYCHOS-UNSP 10/31/2004 Sciatica 12/09/2006 Skin cancer, basal cell 05/2013 left nose Unspecified hypothyroidism 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 John PAST SURGICAL HISTORY Procedure Laterality Date COLONOSCOPY FLX DX W/COLLJ SPEC WHEN PFRMD 05/06/2001 Colonoscopy COLONOSCOPY FLX DX W/COLLJ SPEC WHEN PFRMD 10/01/11 repeat 10 years MOHS HEAD/NECK STAGE 1 <=5 Left 06/03/2013 nose SIGMOIDOSCOPY FLX DX W/COLLJ SPEC BR/WA IF PFRMD 01/19/2004 Sigmoidoscopy VASECTOMY UNI/BI SPX W/POSTOP SEMEN EXAMS 1979 XCAPSL CTRC RMVL INSJ IO LENS PROSTH W/O ECP Bilateral [facility] ALLERGIES: Aloe Vera and Diclofenac Medications reviewed: Yes FAMILY HISTORY Problem Relation Age of Onset Stroke Mother other (cirrhosis) Father Diabetes Brother No Ocular Disease No Family History SOCIAL HISTORY: Social History Tobacco Use Smoking status: Former Smoker Smokeless tobacco: Never Used Tobacco comment: smokes E Cigarettes started 2014 - quit 30 years ago, has smoked off and on last cigarette was in 2005 Vaping Use Vaping Use: Never used Substance Use Topics Alcohol use: Yes Comment: rare Drug use: No Richard denies regular aerobic exercise. He watches his diet for sodium, low fat and low cholesterol most of the time, generally not very much. List of current specialists seen: End of Live Planning discussed including patients advanced directive wishes: Yes I am willing to follow Richard's advanced directives. PHQ-2 / Depression screen He in the past two weeks denies having felt down, depressed, hopeless or with little interest or pleasure in doing things. Functional Ability/Safety Screen 1. Was the patient's timed Up and Go test unsteady or longer than 30 seconds? No 2. Does the patient need help with the phone, transportation, shopping,preparing meals, housework, laundry, medications or managing money? No 3. Does your home have rugs in the hallway, lack of grab bars in the bathroom, lack of handrails on the stairs or have poor lighting? No Hearing Evaluation: wears hearing aids and normal PHYSICAL EXAM BP 160/70 Pulse 65 Resp 16 Ht 169 cm (5' 6.54 ) Wt 102.1 kg (225 lb) SpO2 95% BMI 35.73 kg/m Alert and oriented X 3: NO Body mass index is 35.73 kg/m . Visual acuity: OD: 20/30 OS: 20/ 25 OU: 20/40 ASSESSMENT/PLAN: 75 year old male The following prevention plan was discussed during the office visit and provided to the patient: - Glaucoma screening - Lipid panel See Below This is a 75 year old male who presents today with: Patient presents with: Medicare Wellness Exam HISTORY OF PRESENT ILLNESS: Richard Vargas is a 75 year old male. Patient presents with: Medicare Wellness Exam Here in the office for extensive exam. Daughter currently lives with patient to help with his care. Difficulty remembering what medications he is currently taking. Refers that his daughter helps manage this. DM: Reports overall feeling well. Medication side effects: No. Home sugar checks: Not checking sugars Hypoglycemic spells: No. Watching diet: No. Unexpected weight loss: No. Polyuria, polydipsia: Yes. Vision Changes: No. Foot lesions or numbness or pain: No. Taking jardiance 10 mg daily and Metformin ER 500 mg daily. Hypothyroid: Taking levothyroxine 137 mcg daily. No difficulty swallowing, cold/heat intolerances. COPD: Not currently taking medication for COPD. Refers the inhalers do not work. Will be seeing pulmonology at [place] in [place] in August. Quit smoking 3 years ago. Parkinson's: Taking Sinemet. Skin Growths: Skin growths on back and top of buttocks. Noticed a couple months ago. Does not hurt. Labs completed prior to this appointment. CBC showed: RBC 3.83, hemoglobin 12.5, MCV 103.9, platelets 82. PSA 0.07, TSH 3.34, A1c 7.1, LDL 111, albumin 3.6, ALT 7, glucose 136, BUN 29, potassium 5.3, chloride 107. PAST MEDICAL HISTORY: PAST MEDICAL HISTORY Diagnosis Date Anxiety disorder 12/16/2014 Anxiety disorder in conditions classified elsewhere DEPRESSIVE DISORDER NEC 09/03/2006 Diabetes mellitus type 2, controlled 02/26/2010 Diverticulosis of colon (without mention of hemorrhage) H/O compression fracture of spine 12/16/2014 Hypertension Hypertrophy of testis 09/28/2014 HYPERTROPHY PROSTATE WITH OBST 10/31/2004 Internal hemorrhoids without mention of complication OBESITY NOS 10/31/2004 Periodic limb movement disorder (PLMD) 12/16/2014 RECURR DEPR PSYCHOS-UNSP 10/31/2004 Sciatica 12/09/2006 Skin cancer, basal cell 05/2013 left nose Unspecified hypothyroidism 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 John PAST SURGICAL HISTORY Procedure Laterality Date COLONOSCOPY FLX DX W/COLLJ SPEC WHEN PFRMD 05/06/2001 Colonoscopy COLONOSCOPY FLX DX W/COLLJ SPEC WHEN PFRMD 10/01/11 repeat 10 years MOHS HEAD/NECK STAGE 1 <=5 Left 06/03/2013 nose SIGMOIDOSCOPY FLX DX W/COLLJ SPEC BR/WA IF PFRMD 01/19/2004 Sigmoidoscopy VASECTOMY UNI/BI SPX W/POSTOP SEMEN EXAMS 1978 XCAPSL CTRC RMVL INSJ IO LENS PROSTH W/O ECP Bilateral [facility] ALLERGIES Aloe Vera and Diclofenac MEDICATIONS Current Outpatient Medications Medication Sig lisinopril (ZESTRIL, PRINIVIL) 10 mg tablet TAKE 1 TABLET DAILY LEVOXYL 125 mcg tablet TAKE 1 TABLET DAILY ON AN EMPTY STOMACH FOR THYROID JARDIANCE 10 mg tablet TAKE 1 TABLET DAILY tamsulosin (FLOMAX) 0.4 mg TAKE 1 CAPSULE TWICE A DAY carbidopa-levodopa (SINEMET 25-100) 25-100 mg per tablet Take 2 tablets by mouth three times daily. metFORMIN ER (GLUCOPHAGE XR) 500 mg 24 hr tablet TAKE 1 TABLET DAILY AT SUPPER rOPINIRole (REQUIP) 2 mg tablet TAKE 1 TABLET DAILY AT BEDTIME levothyroxine (LEVOXYL) 137 mcg tablet Take 1 tablet by mouth once daily. Take on empty stomach. For thyroid. propylene glycoL (SYSTANE BALANCE) 0.6 % drop Use 1 Drop in both eyes four times daily. tiotropium (SPIRIVA WITH HANDIHALER) 18 mcg inhalation capsule Inhale 1 capsule as instructed once daily. Use with handihaler. carbidopa-levodopa (SINEMET 25-100) 25-100 mg per tablet Take 2 tablets by mouth three times daily. budesonide-formoterol (SYMBICORT) 80-4.5 mcg/actuation inhaler Inhale 2 Puffs as instructed twice daily. albuterol HFA (PROVENTIL HFA, VENTOLIN HFA) 90 mcg/actuation inhaler Inhale 2 Puffs as instructed every 4 hours as needed for Wheezing/Shortness of Breath. gabapentin (NEURONTIN) 300 mg capsule Take 1 capsule by mouth daily at bedtime for 90 days. No current facility-administered medications for this visit. FAMILY HISTORY Problem Relation Age of Onset Stroke Mother other (cirrhosis) Father Diabetes Brother No Ocular Disease No Family History Social History Tobacco Use Smoking status: Former Smoker Smokeless tobacco: Never Used Tobacco comment: smokes E Cigarettes started 2015 - quit 30 years ago, has smoked off and on last cigarette was in 2006 Vaping Use Vaping Use: Never used Substance Use Topics Alcohol use: Yes Comment: rare Drug use: No REVIEW OF SYSTEMS GENERAL: No weight loss, malaise or fevers/chills HEENT: Negative for frequent or significant headaches, No changes in hearing or vision. NECK: Negative for lumps, goiter, pain and significant neck swelling RESPIRATORY: Negative for cough, hemoptysis, wheezing, dyspnea or shortness of breath CARDIOVASCULAR: Negative for chest pain, leg swelling, orthopnea, or palpitations GI: No nausea, vomiting, or diarrhea/constipation. No hematochezia/melena. No heartburn or reflux symptoms. : No history of dysuria, frequency or incontinence MUSCULOSKELETAL: Negative for joint pain or swelling. SKIN: + Skin lesions back/buttocks ENDOCRINE: Negative for cold or heat intolerance, polyuria, polydipsia and goiter NEURO: No history of headaches, syncope, paralysis, seizures or tremors MOOD: Negative for depression, anxiety, or suicidal ideation. EXAM: BP 160/70 Pulse 65 Resp 16 Ht 169 cm (5' 6.54 ) Wt 102.1 kg (225 lb) SpO2 95% BMI 35.73 kg/m PHYSICAL EXAM: General Appearance: Well appearing, alert, in no acute distress, well-hydrated, well nourished. Skin: Skin color, texture, turgor normal, no suspicious rashes or lesions. Head: Normocephalic, no masses, lesions, tenderness or abnormalities. Eyes: Anicteric sclera. Pupils are equally round and reactive to light. Extraocular movements are intact. Ears: External ears normal, canals clear. Lungs: Lungs clear to auscultation. No wheezing, rhonchi, rales. Heart: RRR without murmur, gallop, or rubs. No ectopy. Extremities: No deformities, edema, skin discoloration, clubbing or cyanosis. Good capillary refill. Musculoskeletal: No joint swelling, deformity, or tenderness. Peripheral Pulses: Normal, Capillary refill <2secs, strong peripheral pulses, Pulses palpable. Neurologic: Gait normal. Reflexes normal and symmetric. Sensation grossly intact. ASSESSMENT/PLAN: 1. Medicare annual wellness visit, subsequent - ICD9: V70.0, ICD10: Z00.00 (primary diagnosis) - Counseled on healthy diet and regular exercise - Discussed need for and benefit of weight loss. BMI 35.73 kg/(m^2) - Depression screening tool completed and reviewed with patient. Based on score and interview, patient is not at risk for depression and recommended no further intervention at this time. - Follow up for annual exam in one year 2. Abnormal laboratory test result - ICD9: 796.4, ICD10: R89.9 - Get repeat labs in 2 to 4 weeks to evaluate for any possible anemias. - CBC + DIFF - VITAMIN B12 BLOOD - FOLATE SERUM - IRON + TIBC - FECAL OCCULT BLOOD TEST 3. Other specified abnormal findings of blood chemistry - ICD9: 790.6, ICD10: R79.89 - IRON + TIBC 4. Skin lesion - ICD9: 709.9, ICD10: L98.9 - Skin lesions consistent with ascitic keratosis - CONSULT TO DERMATOLOGY 5. Controlled type 2 diabetes mellitus with complication, without long-term current use of insulin (HCC) - ICD9: 250.90, ICD10: E11.8 Poor adherence to plan of care. - Continue current medications - Discussed diabetic education issues of diet with patient. - COMP METABOLIC PANEL 6. Essential hypertension - ICD9: 401.9, ICD10: I10 - poor control - Continue current medication(s) - Encouraged dietary sodium restriction/DASH diet - Recommended regular aerobic exercise. - Goal of BP <130/80 7. Hypothyroidism, unspecified type - ICD9: 244.9, ICD10: E03.9 - Instructed patient on importance of taking on an empty stomach either first thing in the morning or at bedtime. Stable - Continue current medications 8. Vascular parkinsonism (HCC) - ICD9: 332.0, ICD10: G21.4 - Continue with Sinemet. Follow up in 3 months or sooner as needed. Discussed treatment plan and patient voices understanding. Patient's questions answered appropriately. Medications and potential side effects were discussed and patient voices understanding. Filomena Allen APRN.PHYSICIAN PRACTICE ADMINISTRATOR This note was partially generated using Avolent recognition system. Note was reviewed for accuracy. There may be minor misspellings or grammar miscues with [employer] voice recognition. documented in this encounter [facility] 06-14-2021 History of Presen t illness Narrative [facility] Enrollment Provider Action/FYI: 3 attempts to reach patient in 2020 for enrollment unsuccessful. [employer] introduction message sent recently- not read Fifth attempt to reach patient Patient referred by: [facility] Debbie Contact made with patient: No - 2nd attempt to reach patient, left another message: Hi my name is Kacie Wood RN and I am calling from the [facility] on behalf of your PCP, Luke Barger MD. We are excited to share with you a new program to help you manage your health. Please call me back at [phone] . I hope you can take the time to speak with me. (Keep encounter open for additional two business days in case patient calls back. Close encounter if no response by end of second business day) Closing: Could not reach the patient after two attempted outreaches. Deboning Team Leader to retry patient in one week. 5 attempts END OUTREACH documented in this encounter [facility] 05-15-2021 Miscellaneous Notes Detailed message left on pt identified VM that he needs to make appt and get blood work done. Avis Caruso Ma OK to refill as ordered He is due for office visit and labs as ordered Luke Barger MD documented in this encounter [facility] documented as of this encounter (statuses as of 05/15/2021) [facility] History of Past illness Narrative* Problem Noted Date Resolved Date Screening for other and unspecified genitourinar y condition 09/28/2014 12/16/2014 Neoplasm of Uncertain Behavi or (NUB) of skin: R/O BCC of left lower postlat side nose 06/03/2013 12/16/2014 R/O BCC (basal cell carcinom a), face: L lower postlat upper alar side nose 06/03/2013 12/16/2014 Irritated//Inflamed Seborrheic Keratosis 014 09/15/2014 Milial cyst 06/03/2013 12/16/2014 Solar lentigo 06/03/2013 09/15/2014 Actinic skin damage 06/03/2013 12/16/2014 Medicare annual wellness visit, subsequent 03/2612/16/2014 Thrombocytopenia 06/02/2012 12/16/2014 Open wound(s) (multiple) of unspecified site(s), without mention of complication 06/22/2007 12/16/2014 Other seborrheic keratosis 05/06/200709/15 SOLAR LENGINES///DYSCHROMIA OTHER 05/06/2007 12/16/2014 Other chronic dermatitis due to solar radiation 05/06/2007 12/16/2014 Sciatica 12/09/2006 12/16/2014 ABNORMAL GLUCOSE NEC 11/10/2006 12/16/2014 RECURR DEPR PSYCHOS-UNSP 10/31/2004 015 documented as of this encounter (statuses as of 06/14/2021) [facility] History of Past illness Narrative* Problem Noted Date Resolved Date Screening for other and unspecified genitourinar y condition 09/28/2014 12/16/2014 Neoplasm of Uncertain Behavi or (NUB) of skin: R/O BCC of left lower postlat side nose 06/03/2013 12/16/2014 R/O BCC (basal cell carcinom a), face: L lower postlat upper alar side nose 06/03/2013 12/16/2014 Irritated//Inflamed Seborrheic Keratosis 014 09/15/2014 Milial cyst 06/03/2013 12/16/2014 Solar lentigo 06/03/2013 09/15/2014 Actinic skin damage 06/03/2013 12/16/2014 Medicare annual wellness visit, subsequent 03/2612/16/2014 Thrombocytopenia 06/02/2012 12/16/2014 Open wound(s) (multiple) of unspecified site(s), without mention of complication 06/22/2007 12/16/2014 Other seborrheic keratosis 05/06/200709/15 SOLAR LENGINES///DYSCHROMIA OTHER 05/06/2007 12/16/2014 Other chronic dermatitis due to solar radiation 05/06/2007 12/16/2014 Sciatica 12/09/2006 12/16/2014 ABNORMAL GLUCOSE NEC 11/10/2006 12/16/2014 RECURR DEPR PSYCHOS-UNSP 10/31/2004 015 documented as of this encounter (statuses as of 07/12/2021) [facility] History of Past illness Narrative* Problem Noted Date Resolved Date Screening for other and unspecified genitourinar y condition 09/28/2014 12/16/2014 Neoplasm of Uncertain Behavi or (NUB) of skin: R/O BCC of left lower postlat side nose 06/03/2013 12/16/2014 R/O BCC (basal cell carcinom a), face: L lower postlat upper alar side nose 06/03/2013 12/16/2014 Irritated//Inflamed Seborrheic Keratosis 014 09/15/2014 Milial cyst 06/03/2013 12/16/2014 Solar lentigo 06/03/2013 09/15/2014 Actinic skin damage 06/03/2013 12/16/2014 Medicare annual wellness visit, subsequent 03/2612/16/2014 Thrombocytopenia 06/02/2012 12/16/2014 Open wound(s) (multiple) of unspecified site(s), without mention of complication 06/22/2007 12/16/2014 Other seborrheic keratosis 05/06/200709/15 SOLAR LENGINES///DYSCHROMIA OTHER 05/06/2007 12/16/2014 Other chronic dermatitis due to solar radiation 05/06/2007 12/16/2014 Sciatica 12/09/2006 12/16/2014 ABNORMAL GLUCOSE NEC 11/10/2006 12/16/2014 RECURR DEPR PSYCHOS-UNSP 10/31/2004 015 documented as of this encounter (statuses as of 08/27/2021) [facility] History of Past illness Narrative* Problem Noted Date Resolved Date Screening for other and unspecified genitourinar y condition 09/28/2014 12/16/2014 Neoplasm of Uncertain Behavi or (NUB) of skin: R/O BCC of left lower postlat side nose 06/03/2013 12/16/2014 R/O BCC (basal cell carcinom a), face: L lower postlat upper alar side nose 06/03/2013 12/16/2014 Irritated//Inflamed Seborrheic Keratosis 014 09/15/2014 Milial cyst 06/03/2013 12/16/2014 Solar lentigo 06/03/2013 09/15/2014 Actinic skin damage 06/03/2013 12/16/2014 Medicare annual wellness visit, subsequent 03/2612/16/2014 Thrombocytopenia 06/02/2012 12/16/2014 Open wound(s) (multiple) of unspecified site(s), without mention of complication 06/22/2007 12/16/2014 Other seborrheic keratosis 05/06/200709/15 SOLAR LENGINES///DYSCHROMIA OTHER 05/06/2007 12/16/2014 Other chronic dermatitis due to solar radiation 05/06/2007 12/16/2014 Sciatica 12/09/2006 12/16/2014 ABNORMAL GLUCOSE NEC 11/10/2006 12/16/2014 RECURR DEPR PSYCHOS-UNSP 10/31/2004 015 documented as of this encounter (statuses as of 08/28/2021) [facility] History of Past illness Narrative* Problem Noted Date Resolved Date Screening for other and unspecified genitourinar y condition 09/28/2014 12/16/2014 Neoplasm of Uncertain Behavi or (NUB) of skin: R/O BCC of left lower postlat side nose 06/03/2013 12/16/2014 R/O BCC (basal cell carcinom a), face: L lower postlat upper alar side nose 06/03/2013 12/16/2014 Irritated//Inflamed Seborrheic Keratosis 014 09/15/2014 Milial cyst 06/03/2013 12/16/2014 Solar lentigo 06/03/2013 09/15/2014 Actinic skin damage 06/03/2013 12/16/2014 Medicare annual wellness visit, subsequent 03/2612/16/2014 Thrombocytopenia 06/02/2012 12/16/2014 Open wound(s) (multiple) of unspecified site(s), without mention of complication 06/22/2007 12/16/2014 Other seborrheic keratosis 05/06/200709/15 SOLAR LENGINES///DYSCHROMIA OTHER 05/06/2007 12/16/2014 Other chronic dermatitis due to solar radiation 05/06/2007 12/16/2014 Sciatica 12/09/2006 12/16/2014 ABNORMAL GLUCOSE NEC 11/10/2006 12/16/2014 RECURR DEPR PSYCHOS-UNSP 10/31/2004 015 documented as of this encounter (statuses as of 09/04/2021) [facility] History of Past illness Narrative* Problem Noted Date Resolved Date Screening for other and unspecified genitourinar y condition 09/28/2014 12/16/2014 Neoplasm of Uncertain Behavi or (NUB) of skin: R/O BCC of left lower postlat side nose 06/03/2013 12/16/2014 R/O BCC (basal cell carcinom a), face: L lower postlat upper alar side nose 06/03/2013 12/16/2014 Irritated//Inflamed Seborrheic Keratosis 014 09/15/2014 Milial cyst 06/03/2013 12/16/2014 Solar lentigo 06/03/2013 09/15/2014 Actinic skin damage 06/03/2013 12/16/2014 Medicare annual wellness visit, subsequent 03/2612/16/2014 Thrombocytopenia 06/02/2012 12/16/2014 Open wound(s) (multiple) of unspecified site(s), without mention of complication 06/22/2007 12/16/2014 Other seborrheic keratosis 05/06/200709/15 SOLAR LENGINES///DYSCHROMIA OTHER 05/06/2007 12/16/2014 Other chronic dermatitis due to solar radiation 05/06/2007 12/16/2014 Sciatica 12/09/2006 12/16/2014 ABNORMAL GLUCOSE NEC 11/10/2006 12/16/2014 RECURR DEPR PSYCHOS-UNSP 10/31/2004 015 documented as of this encounter (statuses as of 09/04/2021) [facility] History of Past illness Narrative* Problem Noted Date Resolved Date Screening for other and unspecified genitourinar y condition 09/28/2014 12/16/2014 Neoplasm of Uncertain Behavi or (NUB) of skin: R/O BCC of left lower postlat side nose 06/03/2013 12/16/2014 R/O BCC (basal cell carcinom a), face: L lower postlat upper alar side nose 06/03/2013 12/16/2014 Irritated//Inflamed Seborrheic Keratosis 014 09/15/2014 Milial cyst 06/03/2013 12/16/2014 Solar lentigo 06/03/2013 09/15/2014 Actinic skin damage 06/03/2013 12/16/2014 Medicare annual wellness visit, subsequent 03/2612/16/2014 Thrombocytopenia 06/02/2012 12/16/2014 Open wound(s) (multiple) of unspecified site(s), without mention of complication 06/22/2007 12/16/2014 Other seborrheic keratosis 05/06/200709/15 SOLAR LENGINES///DYSCHROMIA OTHER 05/06/2007 12/16/2014 Other chronic dermatitis due to solar radiation 05/06/2007 12/16/2014 Sciatica 12/09/2006 12/16/2014 ABNORMAL GLUCOSE NEC 11/10/2006 12/16/2014 RECURR DEPR PSYCHOS-UNSP 10/31/2004 015 documented as of this encounter (statuses as of 09/18/2021) [facility] History of Past illness Narrative* Problem Noted Date Resolved Date Neoplasm of Uncertain Behavi or (NUB) of skin: R/O BCC of left lower postlat side nose 06/03/2013 12/16/2014 Irritated//Inflamed Seborrheic Keratosis 014 09/15/2014 Milial cyst 06/03/2013 12/16/2014 Solar lentigo 06/03/2013 09/15/2014 Actinic skin damage 06/03/2013 12/16/2014 Medicare annual wellness visit, subsequent 03/2612/16/2014 Open wound(s) (multiple) of unspecified site(s), without mention of complication 06/22/2007 12/16/2014 Other seborrheic keratosis 05/06/200709/15 SOLAR LENGINES///DYSCHROMIA OTHER 05/06/2007 12/16/2014 Other chronic dermatitis due to solar radiation 05/06/2007 12/16/2014 Sciatica 12/09/2006 12/16/2014 ABNORMAL GLUCOSE NEC 11/10/2006 12/16/2014 RECURR DEPR PSYCHOS-UNSP 10/31/2004 015 documented as of this encounter (statuses as of 10/05/2021) [facility] History of Past illness Narrative* Problem Noted Date Resolved Date Neoplasm of Uncertain Behavi or (NUB) of skin: R/O BCC of left lower postlat side nose 06/03/2013 12/16/2014 Irritated//Inflamed Seborrheic Keratosis 014 09/15/2014 Milial cyst 06/03/2013 12/16/2014 Solar lentigo 06/03/2013 09/15/2014 Actinic skin damage 06/03/2013 12/16/2014 Medicare annual wellness visit, subsequent 03/2612/16/2014 Open wound(s) (multiple) of unspecified site(s), without mention of complication 06/22/2007 12/16/2014 Other seborrheic keratosis 05/06/200709/15 SOLAR LENGINES///DYSCHROMIA OTHER 05/06/2007 12/16/2014 Other chronic dermatitis due to solar radiation 05/06/2007 12/16/2014 Sciatica 12/09/2006 12/16/2014 ABNORMAL GLUCOSE NEC 11/10/2006 12/16/2014 RECURR DEPR PSYCHOS-UNSP 10/31/2004 015 documented as of this encounter (statuses as of 10/11/2021) [facility] History of Past illness Narrative* Problem Noted Date Resolved Date Neoplasm of Uncertain Behavi or (NUB) of skin: R/O BCC of left lower postlat side nose 06/03/2013 12/16/2014 Irritated//Inflamed Seborrheic Keratosis 014 09/15/2014 Milial cyst 06/03/2013 12/16/2014 Solar lentigo 06/03/2013 09/15/2014 Actinic skin damage 06/03/2013 12/16/2014 Medicare annual wellness visit, subsequent 03/2612/16/2014 Open wound(s) (multiple) of unspecified site(s), without mention of complication 06/22/2007 12/16/2014 Other seborrheic keratosis 05/06/200709/15 SOLAR LENGINES///DYSCHROMIA OTHER 05/06/2007 12/16/2014 Other chronic dermatitis due to solar radiation 05/06/2007 12/16/2014 Sciatica 12/09/2006 12/16/2014 ABNORMAL GLUCOSE NEC 11/10/2006 12/16/2014 RECURR DEPR PSYCHOS-UNSP 10/31/2004 015 documented as of this encounter (statuses as of 10/18/2021) [place] [id number] History of Past illness Narrative* Problem Noted Date Resolved Date Neoplasm of Uncertain Behavi or (NUB) of skin: R/O BCC of left lower postlat side nose 06/03/2013 12/16/2014 Irritated//Inflamed Seborrheic Keratosis 014 09/15/2014 Milial cyst 06/03/2013 12/16/2014 Solar lentigo 06/03/2013 09/15/2014 Actinic skin damage 06/03/2013 12/16/2014 Medicare annual wellness visit, subsequent 03/2612/16/2014 Open wound(s) (multiple) of unspecified site(s), without mention of complication 06/22/2007 12/16/2014 Other seborrheic keratosis 05/06/200709/15 SOLAR LENGINES///DYSCHROMIA OTHER 05/06/2007 12/16/2014 Other chronic dermatitis due to solar radiation 05/06/2007 12/16/2014 Sciatica 12/09/2006 12/16/2014 ABNORMAL GLUCOSE NEC 11/10/2006 12/16/2014 RECURR DEPR PSYCHOS-UNSP 10/31/2004 015 documented as of this encounter (statuses as of 11/15/2021) [facility] History of Past illness Narrative* Problem Noted Date Resolved Date Neoplasm of Uncertain Behavi or (NUB) of skin: R/O BCC of left lower postlat side nose 06/03/2013 12/16/2014 Irritated//Inflamed Seborrheic Keratosis 014 09/15/2014 Milial cyst 06/03/2013 12/16/2014 Solar lentigo 06/03/2013 09/15/2014 Actinic skin damage 06/03/2013 12/16/2014 Medicare annual wellness visit, subsequent 03/2612/16/2014 Open wound(s) (multiple) of unspecified site(s), without mention of complication 06/22/2007 12/16/2014 Other seborrheic keratosis 05/06/200709/15 SOLAR LENGINES///DYSCHROMIA OTHER 05/06/2007 12/16/2014 Other chronic dermatitis due to solar radiation 05/06/2007 12/16/2014 Sciatica 12/09/2006 12/16/2014 ABNORMAL GLUCOSE NEC 11/10/2006 12/16/2014 RECURR DEPR PSYCHOS-UNSP 10/31/2004 015 documented as of this encounter (statuses as of 11/16/2021) [facility] History of Past illness Narrative* Problem Noted Date Resolved Date Neoplasm of Uncertain Behavi or (NUB) of skin: R/O BCC of left lower postlat side nose 06/03/2013 12/16/2014 Irritated//Inflamed Seborrheic Keratosis 014 09/15/2014 Milial cyst 06/03/2013 12/16/2014 Solar lentigo 06/03/2013 09/15/2014 Actinic skin damage 06/03/2013 12/16/2014 Medicare annual wellness visit, subsequent 03/2612/16/2014 Open wound(s) (multiple) of unspecified site(s), without mention of complication 06/22/2007 12/16/2014 Other seborrheic keratosis 05/06/200709/15 SOLAR LENGINES///DYSCHROMIA OTHER 05/06/2007 12/16/2014 Other chronic dermatitis due to solar radiation 05/06/2007 12/16/2014 Sciatica 12/09/2006 12/16/2014 ABNORMAL GLUCOSE NEC 11/10/2006 12/16/2014 RECURR DEPR PSYCHOS-UNSP 10/31/2004 015 documented as of this encounter (statuses as of 11/20/2021) [facility] History of Past illness Narrative* Problem Noted Date Resolved Date Neoplasm of Uncertain Behavi or (NUB) of skin: R/O BCC of left lower postlat side nose 06/03/2013 12/16/2014 Irritated//Inflamed Seborrheic Keratosis 014 09/15/2014 Milial cyst 06/03/2013 12/16/2014 Solar lentigo 06/03/2013 09/15/2014 Actinic skin damage 06/03/2013 12/16/2014 Medicare annual wellness visit, subsequent 03/2612/16/2014 Open wound(s) (multiple) of unspecified site(s), without mention of complication 06/22/2007 12/16/2014 Other seborrheic keratosis 05/06/200709/15 SOLAR LENGINES///DYSCHROMIA OTHER 05/06/2007 12/16/2014 Other chronic dermatitis due to solar radiation 05/06/2007 12/16/2014 Sciatica 12/09/2006 12/16/2014 ABNORMAL GLUCOSE NEC 11/10/2006 12/16/2014 RECURR DEPR PSYCHOS-UNSP 10/31/2004 015 documented as of this encounter (statuses as of 12/02/2021) [facility] History of Past illness Narrative* Problem Noted Date Resolved Date Neoplasm of Uncertain Behavi or (NUB) of skin: R/O BCC of left lower postlat side nose 06/03/2013 12/16/2014 Irritated//Inflamed Seborrheic Keratosis 014 09/15/2014 Milial cyst 06/03/2013 12/16/2014 Solar lentigo 06/03/2013 09/15/2014 Actinic skin damage 06/03/2013 12/16/2014 Medicare annual wellness visit, subsequent 03/2612/16/2014 Open wound(s) (multiple) of unspecified site(s), without mention of complication 06/22/2007 12/16/2014 Other seborrheic keratosis 05/06/200709/15 SOLAR LENGINES///DYSCHROMIA OTHER 05/06/2007 12/16/2014 Other chronic dermatitis due to solar radiation 05/06/2007 12/16/2014 Sciatica 12/09/2006 12/16/2014 ABNORMAL GLUCOSE NEC 11/10/2006 12/16/2014 RECURR DEPR PSYCHOS-UNSP 10/31/2004 015 documented as of this encounter (statuses as of 12/26/2021) [facility] History of Past illness Narrative* Problem Noted Date Resolved Date Neoplasm of Uncertain Behavi or (NUB) of skin: R/O BCC of left lower postlat side nose 06/03/2013 12/16/2014 Irritated//Inflamed Seborrheic Keratosis 014 09/15/2014 Milial cyst 06/03/2013 12/16/2014 Solar lentigo 06/03/2013 09/15/2014 Actinic skin damage 06/03/2013 12/16/2014 Medicare annual wellness visit, subsequent 03/2612/16/2014 Open wound(s) (multiple) of unspecified site(s), without mention of complication 06/22/2007 12/16/2014 Other seborrheic keratosis 05/06/200709/15 SOLAR LENGINES///DYSCHROMIA OTHER 05/06/2007 12/16/2014 Other chronic dermatitis due to solar radiation 05/06/2007 12/16/2014 Sciatica 12/09/2006 12/16/2014 ABNORMAL GLUCOSE NEC 11/10/2006 12/16/2014 RECURR DEPR PSYCHOS-UNSP 10/31/2004 015 documented as of this encounter (statuses as of 01/24/2022) [facility] History of Past illness Narrative* Problem Noted Date Resolved Date Neoplasm of Uncertain Behavi or (NUB) of skin: R/O BCC of left lower postlat side nose 06/03/2013 12/16/2014 Irritated//Inflamed Seborrheic Keratosis 014 09/15/2014 Milial cyst 06/03/2013 12/16/2014 Solar lentigo 06/03/2013 09/15/2014 Actinic skin damage 06/03/2013 12/16/2014 Medicare annual wellness visit, subsequent 03/2612/16/2014 Open wound(s) (multiple) of unspecified site(s), without mention of complication 06/22/2007 12/16/2014 Other seborrheic keratosis 05/06/200709/15 SOLAR LENGINES///DYSCHROMIA OTHER 05/06/2007 12/16/2014 Other chronic dermatitis due to solar radiation 05/06/2007 12/16/2014 Sciatica 12/09/2006 12/16/2014 ABNORMAL GLUCOSE NEC 11/10/2006 12/16/2014 RECURR DEPR PSYCHOS-UNSP 10/31/2004 015 documented as of this encounter (statuses as of 04/25/2022) [facility] History of Past illness Narrative* Problem Noted Date Resolved Date Neoplasm of Uncertain Behavi or (NUB) of skin: R/O BCC of left lower postlat side nose 06/03/2013 12/16/2014 Irritated//Inflamed Seborrheic Keratosis 014 09/15/2014 Milial cyst 06/03/2013 12/16/2014 Solar lentigo 06/03/2013 09/15/2014 Actinic skin damage 06/03/2013 12/16/2014 Medicare annual wellness visit, subsequent 03/2612/16/2014 Open wound(s) (multiple) of unspecified site(s), without mention of complication 06/22/2007 12/16/2014 Other seborrheic keratosis 05/06/200709/15 SOLAR LENGINES///DYSCHROMIA OTHER 05/06/2007 12/16/2014 Other chronic dermatitis due to solar radiation 05/06/2007 12/16/2014 Sciatica 12/09/2006 12/16/2014 ABNORMAL GLUCOSE NEC 11/10/2006 12/16/2014 RECURR DEPR PSYCHOS-UNSP 10/31/2004 015 documented as of this encounter (statuses as of 04/25/2022) [facility] History of Past illness Narrative* Problem Noted Date Resolved Date Neoplasm of Uncertain Behavi or (NUB) of skin: R/O BCC of left lower postlat side nose 06/03/2013 12/16/2014 Irritated//Inflamed Seborrheic Keratosis 014 09/15/2014 Milial cyst 06/03/2013 12/16/2014 Solar lentigo 06/03/2013 09/15/2014 Actinic skin damage 06/03/2013 12/16/2014 Medicare annual wellness visit, subsequent 03/2612/16/2014 Open wound(s) (multiple) of unspecified site(s), without mention of complication 06/22/2007 12/16/2014 Other seborrheic keratosis 05/06/200709/15 SOLAR LENGINES///DYSCHROMIA OTHER 05/06/2007 12/16/2014 Other chronic dermatitis due to solar radiation 05/06/2007 12/16/2014 Sciatica 12/09/2006 12/16/2014 ABNORMAL GLUCOSE NEC 11/10/2006 12/16/2014 RECURR DEPR PSYCHOS-UNSP 10/31/2004 015 documented as of this encounter (statuses as of 04/25/2022) [facility] History of Past illness Narrative* Problem Noted Date Resolved Date Neoplasm of Uncertain Behavi or (NUB) of skin: R/O BCC of left lower postlat side nose 06/03/2013 12/16/2014 Irritated//Inflamed Seborrheic Keratosis 014 09/15/2014 Milial cyst 06/03/2013 12/16/2014 Solar lentigo 06/03/2013 09/15/2014 Actinic skin damage 06/03/2013 12/16/2014 Medicare annual wellness visit, subsequent 03/2612/16/2014 Open wound(s) (multiple) of unspecified site(s), without mention of complication 06/22/2007 12/16/2014 Other seborrheic keratosis 05/06/200709/15 SOLAR LENGINES///DYSCHROMIA OTHER 05/06/2007 12/16/2014 Other chronic dermatitis due to solar radiation 05/06/2007 12/16/2014 Sciatica 12/09/2006 12/16/2014 ABNORMAL GLUCOSE NEC 11/10/2006 12/16/2014 RECURR DEPR PSYCHOS-UNSP 10/31/2004 015 documented as of this encounter (statuses as of 05/10/2022) [facility] History of Past illness Narrative* Problem Noted Date Resolved Date Neoplasm of Uncertain Behavi or (NUB) of skin: R/O BCC of left lower postlat side nose 06/03/2013 12/16/2014 Irritated//Inflamed Seborrheic Keratosis 014 09/15/2014 Milial cyst 06/03/2013 12/16/2014 Solar lentigo 06/03/2013 09/15/2014 Actinic skin damage 06/03/2013 12/16/2014 Medicare annual wellness visit, subsequent 03/2612/16/2014 Open wound(s) (multiple) of unspecified site(s), without mention of complication 06/22/2007 12/16/2014 Other seborrheic keratosis 05/06/200709/15 SOLAR LENGINES///DYSCHROMIA OTHER 05/06/2007 12/16/2014 Other chronic dermatitis due to solar radiation 05/06/2007 12/16/2014 Sciatica 12/09/2006 12/16/2014 ABNORMAL GLUCOSE NEC 11/10/2006 12/16/2014 RECURR DEPR PSYCHOS-UNSP 10/31/2004 015 documented as of this encounter (statuses as of 05/10/2022) [facility] History of Past illness Narrative* Problem Noted Date Resolved Date Neoplasm of Uncertain Behavi or (NUB) of skin: R/O BCC of left lower postlat side nose 06/03/2013 12/16/2014 Irritated//Inflamed Seborrheic Keratosis 014 09/15/2014 Milial cyst 06/03/2013 12/16/2014 Solar lentigo 06/03/2013 09/15/2014 Actinic skin damage 06/03/2013 12/16/2014 Medicare annual wellness visit, subsequent 03/2612/16/2014 Open wound(s) (multiple) of unspecified site(s), without mention of complication 06/22/2007 12/16/2014 Other seborrheic keratosis 05/06/200709/15 SOLAR LENGINES///DYSCHROMIA OTHER 05/06/2007 12/16/2014 Other chronic dermatitis due to solar radiation 05/06/2007 12/16/2014 Sciatica 12/09/2006 12/16/2014 ABNORMAL GLUCOSE NEC 11/10/2006 12/16/2014 RECURR DEPR PSYCHOS-UNSP 10/31/2004 015 documented as of this encounter (statuses as of 05/10/2022) [facility] History of Past illness Narrative* Problem Noted Date Diagnosed Date Resolved Date Neoplasm of Uncertain Behavi or (NUB) of skin: R/O BCC of left lower postlat side nose 06/03/2013 12/16/2014 Irritated//Inflamed Seborrheic Keratosis 06/03/2013 09/15/2014 Milial cyst 06/03/2013 12/16/2014 Solar lentigo 06/03/2013 09/15/2014 Actinic skin damage 06/03/2013 12/17/19 15 Medicare annual wellness visit, subsequent 03/26/2013 12/16/2014 Open wound(s) (multiple) of unspecified site(s), without mention of complication 06/22/2007 12/16/2014 Other seborrheic keratosis 05/06/2007 0 09/15/2014 SOLAR LENGINES///DYSCHROMIA OTHER 05/06/2007 12/16/2014 Other chronic dermatitis due to solar radiation 05/06/2007 12/16/2014 Sciatica 12/09/2006 12/16/2014 ABNORMAL GLUCOSE NEC 11/10/2006 015 RECURR DEPR PSYCHOS-UNSP 10/31/2004 documented as of this encounter (statuses as of 10/07/2022) [facility] History of Past illness Narrative* Problem Noted Date Diagnosed Date Resolved Date Neoplasm of Uncertain Behavi or (NUB) of skin: R/O BCC of left lower postlat side nose 06/03/2013 12/16/2014 Irritated//Inflamed Seborrheic Keratosis 06/03/2013 09/15/2014 Milial cyst 06/03/2013 12/16/2014 Solar lentigo 06/03/2013 09/15/2014 Actinic skin damage 06/03/2013 12/17/19 15 Medicare annual wellness visit, subsequent 03/26/2013 12/16/2014 Open wound(s) (multiple) of unspecified site(s), without mention of complication 06/22/2007 12/16/2014 Other seborrheic keratosis 05/06/2007 0 09/15/2014 SOLAR LENGINES///DYSCHROMIA OTHER 05/06/2007 12/16/2014 Other chronic dermatitis due to solar radiation 05/06/2007 12/16/2014 Sciatica 12/09/2006 12/16/2014 ABNORMAL GLUCOSE NEC 11/10/2006 015 RECURR DEPR PSYCHOS-UNSP 10/31/2004 documented as of this encounter (statuses as of 10/15/2022) [facility] History of Past illness Narrative* Problem Noted Date Diagnosed Date Resolved Date Neoplasm of Uncertain Behavi or (NUB) of skin: R/O BCC of left lower postlat side nose 06/03/2013 12/16/2014 Irritated//Inflamed Seborrheic Keratosis 06/03/2013 09/15/2014 Milial cyst 06/03/2013 12/16/2014 Solar lentigo 06/03/2013 09/15/2014 Actinic skin damage 06/03/2013 12/17/19 15 Medicare annual wellness visit, subsequent 03/26/2013 12/16/2014 Open wound(s) (multiple) of unspecified site(s), without mention of complication 06/22/2007 12/16/2014 Other seborrheic keratosis 05/06/2007 0 09/15/2014 SOLAR LENGINES///DYSCHROMIA OTHER 05/06/2007 12/16/2014 Other chronic dermatitis due to solar radiation 05/06/2007 12/16/2014 Sciatica 12/09/2006 12/16/2014 ABNORMAL GLUCOSE NEC 11/10/2006 015 RECURR DEPR PSYCHOS-UNSP 10/31/2004 documented as of this encounter (statuses as of 11/28/2022) [facility] History of Past illness Narrative* Problem Noted Date Diagnosed Date Resolved Date Neoplasm of Uncertain Behavi or (NUB) of skin: R/O BCC of left lower postlat side nose 06/03/2013 12/16/2014 Irritated//Inflamed Seborrheic Keratosis 06/03/2013 09/15/2014 Milial cyst 06/03/2013 12/16/2014 Solar lentigo 06/03/2013 09/15/2014 Actinic skin damage 06/03/2013 12/17/19 15 Medicare annual wellness visit, subsequent 03/26/2013 12/16/2014 Open wound(s) (multiple) of unspecified site(s), without mention of complication 06/22/2007 12/16/2014 Other seborrheic keratosis 05/06/2007 0 09/15/2014 SOLAR LENGINES///DYSCHROMIA OTHER 05/06/2007 12/16/2014 Other chronic dermatitis due to solar radiation 05/06/2007 12/16/2014 Sciatica 12/09/2006 12/16/2014 ABNORMAL GLUCOSE NEC 11/10/2006 015 RECURR DEPR PSYCHOS-UNSP 10/31/2004 documented as of this encounter (statuses as of 12/25/2022) [facility] Diagnosis Hypothyroidism, unspecified type- Primary Essential hypertension Unspecified essential hypertension Acquired hypothyroidism Unspecified hypothyroidism Controlled diabetes mellitus type 2 with complications, unspecified whether superintendent container terminal insulin use (HCC) Mixed hyperlipidemia BPH with obstruction/lower urinary tract symptoms Hypertrophy of prostate with urinary obstruction and other lower urinary tract symptoms (LUTS) documented in this encounter [facility]* Diagnosis Medicare annual wellness visit, subsequent- Primary Routine general medical examination at a health care facility Abnormal laboratory test result Other abnormal clinical finding Other specified abnormal findings of blood chemistry Skin lesion Unspecified disorder of skin and subcutaneous tissue Controlled type 2 diabetes mellitus with complication, without long-term current use of insulin (HCC) Essential hypertension Unspecified essential hypertension Hypothyroidism, unspecified type Vascular parkinsonism (HCC) Paralysis agitans [facility] Diagnosis Acute right-sided low back pain without sciatica- Primary Right hip pain Pain in joint, pelvic region and thigh Seborrheic keratosis Other seborrheic keratosis Difficulty sleeping Sleep disturbance, unspecified Atypical mole Benign neoplasm of skin, site unspecified [facility] Diagnosis Pigmented skin lesion of uncertain nature- Primary Atypical mole Benign neoplasm of skin, site unspecified Encounter for screening for malignant neoplasm of colon Special screening for malignant neoplasms, colon [facility] Diagnosis Skin lesion of back- Primary Unspecified disorder of skin and subcutaneous tissue [facility] Diagnosis Pre-operative examination- Primary Preoperative examination, unspecified Colon cancer screening Special screening for malignant neoplasms, colon Acquired hypothyroidism Unspecified hypothyroidism BPH with urinary obstruction Hypertrophy of prostate with urinary obstruction and other lower urinary tract symptoms (LUTS) Controlled type 2 diabetes mellitus with complication, without long-term current use of insulin (HCC) Essential hypertension Unspecified essential hypertension Mixed hyperlipidemia RLS (restless legs syndrome) Restless legs syndrome (RLS) Vascular parkinsonism (HCC) Paralysis agitans Class 2 obesity due to excess calories without serious comorbidity with body mass index (BMI) of 35.0 to 35.9 in adult Basal cell carcinoma (BCC), unspecified site Former smoker Personal history of tobacco use, presenting hazards to health Thrombocytopenia Thrombocytopenia, unspecified [facility] Diagnosis Acute right-sided low back pain without sciatica Right hip pain Pain in joint, pelvic region and thigh [facility] Diagnosis Encounter for screening for malignant neoplasm of colon- Primary Special screening for malignant neoplasms, colon [facility] Diagnosis RLS (restless legs syndrome)- Primary Restless legs syndrome (RLS) [facility] Diagnosis Essential hypertension Unspecified essential hypertension RLS (restless legs syndrome) Restless legs syndrome (RLS) [facility] Diagnosis Fall, initial encounter- Primary Acute right-sided low back pain without sciatica [facility] Diagnosis Upper back pain- Primary Need for influenza vaccination Need for prophylactic vaccination and inoculation against influenza Wheezing [facility] Diagnosis RLS (restless legs syndrome) Restless legs syndrome (RLS) [facility] Diagnosis Controlled type 2 diabetes mellitus with complication, without long-term current use of insulin (HCC)- Primary Dry eye syndrome of both eyes Punctate keratitis, bilateral Epiretinal membrane (ERM) of left eye Optic nerve drusen, bilateral Pseudophakia Lens replaced by other means [facility] Diagnosis Hospital discharge follow-up- Primary Other follow-up examination RLS (restless legs syndrome) Restless legs syndrome (RLS) Essential hypertension Unspecified essential hypertension Difficulty sleeping Sleep disturbance, unspecified Controlled type 2 diabetes mellitus with complication, without long-term current use of insulin (HCC) Hypothyroidism, unspecified type Vascular parkinsonism (HCC) Paralysis agitans BPH with obstruction/lower urinary tract symptoms Hypertrophy of prostate with urinary obstruction and other lower urinary tract symptoms (LUTS) Generalized anxiety disorder Thrombocytopenia Thrombocytopenia, unspecified [facility] encounter [facility] Diagnosis Hypothyroidism, unspecified type- Primary Essential hypertension Unspecified essential hypertension Controlled type 2 diabetes mellitus with complication, without long-term current use of insulin (HCC) Mixed hyperlipidemia Iron deficiency anemia due to chronic blood loss Iron deficiency anemia secondary to blood loss (chronic) [facility] Diagnosis Hypothyroidism, unspecified type- Primary Essential hypertension Unspecified essential hypertension Acquired hypothyroidism Unspecified hypothyroidism Controlled type 2 diabetes mellitus with complication, without long-term current use of insulin (HCC) Pancytopenia (HCC) Other pancytopenia Neuropathy associated with endocrine disorder (HCC) Mononeuritis of unspecified site Cirrhosis of liver with ascites, unspecified hepatic cirrhosis type (HCC) Chronic obstructive pulmonary disease, unspecified COPD type (HCC) Heart failure, unspecified HF chronicity, unspecified heart failure type (HCC) Peripheral vascular disease (HCC) Peripheral vascular disease, unspecified Acute and chronic respiratory failure with hypercapnia (HCC) Acute and chronic respiratory failure documented in this encounter [facility] for referral (narrative)* Outpatient Procedure (Routine) - Authorized Specialty Diagnoses / Procedures Referred By Contac t Referred To Contact [facility] Diagnoses Encounter for screening for malignant neoplasm of colon Procedures COLONOSCOPY DIAGNOSTIC COLONOSCOPY FLX DX W/COLLJ SPEC WHEN Geovanny Long MD [address] [place] [address] [facility] [address] [place] [address] Referral ID Status Reason Start Date Expiration Date Visits Requested Visits Authorized [id number] Authorized Auto-Generat ed Referral 09/04/2021 09/04/2022 1 1 [facility] for referral (narrative)* Outpatient Procedure (Routine) - Closed Specialty Diagnoses / Procedures Referred By Contac t Referred To Contact [facility] Diagnoses Encounter for screening for malignant neoplasm of colon Procedures COLONOSCOPY DIAGNOSTIC COLONOSCOPY FLX DX W/COLLJ SPEC WHEN Geovanny Long MD [address] [place] [address] [address] Referral ID Status Reason Start Date Expiration Date V isits Requested Visits Authorized [id number] Closed Auto-Generate d Referral 09/04/2021 09/04/2022 1 1 [facility] Procedure (Routine) - Closed Specialty Diagnoses / Procedures Referred By [place] white Referred To Contact [facility] Diagnoses Encounter for screening for malignant neoplasm of colon Procedures COLONOSCOPY DIAGNOSTIC COLONOSCOPY FLX DX W/COLLJ SPEC WHEN [facility] Geovanny Baca MD [address] [place] [address] [facility] [address] [place] [address] Referral ID Status Reason Start Date Expiration Date V isits Requested Visits Authorized [id number] Closed Auto-Generate d Referral 09/04/2021 09/04/2022 1 1 [facility] [facility] Inst[facility] Name Dates Details Smoker : How to access healt h information online Indication:Smoker Smoker : How to access healt h information online - Detail Indication:Smoker Smoker : Patient Instruction s Indication:Smoker Essential hypertension, alfa gn : Patient Instructions Indication:Essential hypertension, benign BPH (benign prostatic hyperp lasia) : Patient Instructions Indication:BPH (benign prostatic hyperplasia) BMI 35.0-35.9,adult : How to access health information online - Detail Indication:BMI 35.0-35.9,adult BMI 35.0-35.9,adult : Patien t Instructions Indication:BMI 35.0-35.9,adult Diabetes mellitus, type 2 : How to access health information online Indication:Diabetes mellitus, type 2 Diabetes mellitus, type 2 : How to access health information online - Detail Indication:Diabetes mellitus, type 2 Diabetes mellitus, type 2 : Patient Instructions Indication:Diabetes mellitus, type 2 Pancytopenia : Patient Instr uctions Indication:Pancytopenia Hypothyroidism : How to acce ss health information online Indication:Hypothyroidism Hypothyroidism : How to acce ss health information online - Detail Indication:Hypothyroidism Hypothyroidism : Patient Ins tructions Indication:Hypothyroidism BMI 29.0-29.9,adult : How to access health information online Indication:BMI 29.0-29.9,adult BMI 29.0-29.9,adult : How to access health information online - Detail Indication:BMI 29.0-29.9,adult BMI 29.0-29.9,adult : Patien t Instructions Indication:BMI 29.0-29.9,adult Other specified acquired hyp othyroidism : How to access health information online Indication:Other specified acquired hypothyroidism Other specified acquired hyp othyroidism : Patient Instructions Indication:Other specified acquired hypothyroidism COPD (chronic obstructive pu lmonary disease) : How to access health information online Indication:COPD (chronic obstructive pulmonary disease) COPD (chronic obstructive pu lmonary disease) : How to access health information online - Detail Indication:COPD (chronic obstructive pulmonary disease) COPD (chronic obstructive pu lmonary disease) : Patient Instructions Indication:COPD (chronic obstructive pulmonary disease) Essential hypertension, alfa gn : How to access health information online Indication:Essential hypertension, benign Essential hypertension, alfa gn : How to access health information online - Detail Indication:Essential hypertension, benign Hypotension : How to access health information online Indication:Hypotension Hypotension : How to access health information online - Detail Indication:Hypotension Hypotension : Patient Instru ctions Indication:Hypotension Osteochondroma of tibia : Ho w to access health information online Indication:Osteochondroma of tibia Osteochondroma of tibia : Ho w to access health information online - Detail Indication:Osteochondroma of tibia Osteochondroma of tibia : Tommy max Instructions Indication:Osteochondroma of tibia Dyspnea : How to access heal th information online Indication:Dyspnea Dyspnea : How to access heal th information online - Detail Indication:Dyspnea Dyspnea : Patient Instructio ns Indication:Dyspnea Uses nebulizer and inhaler a t home : How to access health information online Indication:Uses nebulizer and inhaler at home Uses nebulizer and inhaler a t home : How to access health information online - Detail Indication:Uses nebulizer and inhaler at home Uses nebulizer and inhaler a t home : Patient Instructions Indication:Uses nebulizer and inhaler at home Instruction Description Start Date Patient advised to follow-up with Primary Care Physician for BMI management. Advance Directives No Advanced Directives Records Found Name Dates Details Living Will - Effective on . Expiration date unspecified. Scanned Document is available upon request. Effective:14-Aug-2017 Documents on File Type Date Recorded Patient Legal Adviser Expl anation Advance Directive(s) 09/23/2008 9:59 PM Documents on File Type Date Recorded Patient Legal Adviser Expl anation Advance Directive(s) 09/23/2008 9:59 PM Chief Complaint Chief Complaint Description Start Date right thumb finger injury Preliminary chief co mplaint data, not yet signed by the author as of Assessments There may be information available, but it has not been provided by the sender. Review of System There may be information available, but it has not been provided by the sender. Family History No Family History Records FoundThere may be information available, but it has not been provided by the sender. History of Present Illness There may be information available, but it has not been provided by the sender. Reason for Referral Specialty Diagnoses / Procedures Referred By Contac t Referred To Contact Dermatology Diagnoses Skin lesion Procedures CONSULT TO DERMATOLOGY Filomena Allen APRN.PHYSICIAN PRACTICE ADMINISTRATOR [address] [place] [address] Referral ID Status Reason Start Date Expiration Date Visits Requested Visits Authorized [id number] Ref Not Required PCP Requested Referral 07/12/2021 07/12/2022 1 1 Specialty Diagnoses / Procedures Referred By Contac t Referred To Contact General Surgery Diagnoses Seborrheic keratosis Atypical mole Procedures CONSULT TO GENERAL SURGERY OFFICE/OUTPATIENT [facility] 60-74 MINUTES Luke Barger MD [address] [place] [address] Referral ID Status Reason Start Date Expiration Date V isits Requested Visits Authorized [id number] Closed PCP Requested Referral 09/04/2021 09/04/2022 1 1 Medications Administered Section Inactive Administered Medications - up to 3 most recent administrations Medication Order MAR Action Action Date Dose Rate Site lactated ringers iv infusion 30 mL/hr, INTRAVENOUS, CONTINUOUS, Starting on Fri10/17/21 at 0830, Until Fri10/17/21 at 0922, Preprocedure New Bag/Syringe/Bottle 10/17/2021 8:44 AM EDT 30 mL/hr 30 mL/hr simethicone 40 mg oral liquid (MYLICON) 40 mg, OTHER, DIRECTED, Starting on Fri10/17/21 at 0930, Until Vickie 10/18/21 at 0416, Per LIP via Colonoscope intraprocedure Shake Well, Intraprocedure Given 10/17/2021 9:30 AM EDT 40 mg Active Administered Medications - up to 3 most recent administrations Medication Order MAR Action Action Date Dose Rate Site PHENYLephrine 2.5 % 1 Drop (AK-DILATE) 1 Drop, BOTH EYES, DIRECTED, Starting on Vickie 04/25/22 at 0830, Until Vickie 04/25/22 at 2028, Administer for dilation PROTECT FROM LIGHT Given 04/25/2022 8:30 AM EST 1 Drop proparacaine 0.5 % 1 Drop (ALCAINE) 1 Drop, BOTH EYES, DIRECTED, Starting on Vickie 04/25/22 at 0830, Until Vickie 04/25/22 at 2028, Administer for pneumo tonometry, tonopen tonometry, or pachymetry. In the event of a proparacaine shortage, administer tetracaine 0.5% ophthalmic drops 1 drop in the left eye as directed for pneumo tonometry, tonopen tonometry, or pachymetry Given 04/25/2022 8:30 AM EST 1 Drop tropicamide 1 % 1 Drop (MYDRIACYL) 1 Drop, BOTH EYES, DIRECTED, Starting on Vickie 04/25/22 at 0830, Until Vickie 04/25/22 at 2028, Administer for dilation Given 04/25/2022 8:30 AM EST 1 Drop Summary Purpose Additional Source Comments Reason for Visit (unrecogniz ed section and content) Reason Comments Refill Request Reason Onset Date Comments Community Monitoring Outreach 06/14/2021 In sight CDM enrollment Reason Comments Medicare Wellness Exam Reason Comments Patient Update Reason Comments Patient Request Patient Update Reason Comments Follow Up UC for fall and inju ry Reason Comments Consult seborrheoc keratosis mole Specialty Diagnoses / Procedures Referred By [place] t Referred To Contact General Surgery Diagnoses Seborrheic keratosis Atypical mole Procedures CONSULT TO GENERAL SURGERY OFFICE/OUTPATIENT [facility] 60-74 MINUTES Luke Barger MD [address] [place] [address] Referral ID Status Reason Start Date Expiration Date V isits Requested Visits Authorized [id number] Closed PCP Requested Referral 09/04/2021 09/04/2022 1 1 Reason Comments Procedure Shave Biopsy Skin Le betzaida Upper Back Reason Comments Consult Reason Onset Date Comments Refill Request 10/11/2021 Reason Comments Medication Problem Pt reported unable t o sleep, ran out of Requip, x2 days. Reason Comments Medication Problem Reason Onset Date Comments Refill Request 11/15/2021 Reason Comments Trauma Sat on chair and pernell jyothi kasper, maryann landed on ground x 5 days Reason Comments Orders Reason Onset Date Comments Back Pain Immunizations 01/24/2022 Flu vaccination Reason Onset Date Comments Refill Request 04/24/2022 Reason Comments Diabetes Blood sugar: 190A1c: 7.1 Reason Comments Medication Request Reason Comments SNF follow up Reason Comments Results Reason Onset Date Comments Refill Request 05/10/2022 Reason Comments urine retention Reason Comments ER F/U Reason Comments Appointment Reason Comments Clinical Update Source Comments (unrecognize d section and content) In the event this informatio n is protected by the Federal Confidentiality of Alcohol and Drug Abuse Patient Records regulations: The Federal rules restrict any use of the information to criminally investigate or prosecute any alcohol or drug abuse patient.[facility] the event this information is protected by the Federal Confidentiality of Alcohol and Drug Abuse Patient Records regulations: The Federal rules restrict any use of the information to criminally investigate or prosecute any alcohol or drug abuse patient.[facility] the event this information is protected by the Federal Confidentiality of Alcohol and Drug Abuse Patient Records regulations: The Federal rules restrict any use of the information to criminally investigate or prosecute any alcohol or drug abuse patient.[facility] the event this information is protected by the Federal Confidentiality of Alcohol and Drug Abuse Patient Records regulations: The Federal rules restrict any use of the information to criminally investigate or prosecute any alcohol or drug abuse patient.[facility] the event this information is protected by the Federal Confidentiality of Alcohol and Drug Abuse Patient Records regulations: The Federal rules restrict any use of the information to criminally investigate or prosecute any alcohol or drug abuse patient.[facility] the event this information is protected by the Federal Confidentiality of Alcohol and Drug Abuse Patient Records regulations: The Federal rules restrict any use of the information to criminally investigate or prosecute any alcohol or drug abuse patient.[facility] the event this information is protected by the Federal Confidentiality of Alcohol and Drug Abuse Patient Records regulations: The Federal rules restrict any use of the information to criminally investigate or prosecute any alcohol or drug abuse patient.[facility] the event this information is protected by the Federal Confidentiality of Alcohol and Drug Abuse Patient Records regulations: The Federal rules restrict any use of the information to criminally investigate or prosecute any alcohol or drug abuse patient.[facility] the event this information is protected by the Federal Confidentiality of Alcohol and Drug Abuse Patient Records regulations: The Federal rules restrict any use of the information to criminally investigate or prosecute any alcohol or drug abuse patient.[facility] the event this information is protected by the Federal Confidentiality of Alcohol and Drug Abuse Patient Records regulations: The Federal rules restrict any use of the information to criminally investigate or prosecute any alcohol or drug abuse patient.[facility] the event this information is protected by the Federal Confidentiality of Alcohol and Drug Abuse Patient Records regulations: The Federal rules restrict any use of the information to criminally investigate or prosecute any alcohol or drug abuse patient.[facility] the event this information is protected by the Federal Confidentiality of Alcohol and Drug Abuse Patient Records regulations: The Federal rules restrict any use of the information to criminally investigate or prosecute any alcohol or drug abuse patient.[facility] the event this information is protected by the Federal Confidentiality of Alcohol and Drug Abuse Patient Records regulations: The Federal rules restrict any use of the information to criminally investigate or prosecute any alcohol or drug abuse patient.[facility] Center[facility] the event this information is protected by the Federal Confidentiality of Alcohol and Drug Abuse Patient Records regulations: The Federal rules restrict any use of the information to criminally investigate or prosecute any alcohol or drug abuse patient.[facility] Center[facility] the event this information is protected by the Federal Confidentiality of Alcohol and Drug Abuse Patient Records regulations: The Federal rules restrict any use of the information to criminally investigate or prosecute any alcohol or drug abuse patient.[facility] Center[facility] the event this information is protected by the Federal Confidentiality of Alcohol and Drug Abuse Patient Records regulations: The Federal rules restrict any use of the information to criminally investigate or prosecute any alcohol or drug abuse patient.[facility] CenterIn the event this information is protected by the Federal Confidentiality of Alcohol and Drug Abuse Patient Records regulations: The Federal rules restrict any use of the information to criminally investigate or prosecute any alcohol or drug abuse patient.[facility] CenterIn the event this information is protected by the Federal Confidentiality of Alcohol and Drug Abuse Patient Records regulations: The Federal rules restrict any use of the information to criminally investigate or prosecute any alcohol or drug abuse patient.[facility] CenterIn the event this information is protected by the Federal Confidentiality of Alcohol and Drug Abuse Patient Records regulations: The Federal rules restrict any use of the information to criminally investigate or prosecute any alcohol or drug abuse patient.[facility] the event this information is protected by the Federal Confidentiality of Alcohol and Drug Abuse Patient Records regulations: The Federal rules restrict any use of the information to criminally investigate or prosecute any alcohol or drug abuse patient.[facility] CenterIn the event this information is protected by the Federal Confidentiality of Alcohol and Drug Abuse Patient Records regulations: The Federal rules restrict any use of the information to criminally investigate or prosecute any alcohol or drug abuse patient.[facility] CenterIn the event this information is protected by the Federal Confidentiality of Alcohol and Drug Abuse Patient Records regulations: The Federal rules restrict any use of the information to criminally investigate or prosecute any alcohol or drug abuse patient.[facility] CenterIn the event this information is protected by the Federal Confidentiality of Alcohol and Drug Abuse Patient Records regulations: The Federal rules restrict any use of the information to criminally investigate or prosecute any alcohol or drug abuse patient.[facility] CenterIn the event this information is protected by the Federal Confidentiality of Alcohol and Drug Abuse Patient Records regulations: The Federal rules restrict any use of the information to criminally investigate or prosecute any alcohol or drug abuse patient.[facility] CenterIn the event this information is protected by the Federal Confidentiality of Alcohol and Drug Abuse Patient Records regulations: The Federal rules restrict any use of the information to criminally investigate or prosecute any alcohol or drug abuse patient.[facility] CenterIn the event this information is protected by the Federal Confidentiality of Alcohol and Drug Abuse Patient Records regulations: The Federal rules restrict any use of the information to criminally investigate or prosecute any alcohol or drug abuse patient.[facility] CenterIn the event this information is protected by the Federal Confidentiality of Alcohol and Drug Abuse Patient Records regulations: The Federal rules restrict any use of the information to criminally investigate or prosecute any alcohol or drug abuse patient.[facility] Care Teams (unrecognized sec tion and content) Residential Care Officer Relationship Specialty Start Date End Date Luke Barger MD [address] [place] [address] PCP - General Family Practice 05/22/18 Residential Care Officer Relationship Specialty Start Date End Date Luke Barger MD [facility] [place] [address] PCP - General Family Practice 05/22/18 Residential Care Officer Relationship Specialty Start Date End Date Luke Barger MD [address] [place] [address] PCP - General Family Practice 05/22/18 Residential Care Officer Relationship Specialty Start Date End Date Luke Barger MD [facility] [place] [address] PCP - General Family Practice 05/22/18 Residential Care Officer Relationship Specialty Start Date End Date Luke Barger MD [address] [place] [address] PCP - General Family Practice 05/22/18 Residential Care Officer Relationship Specialty Start Date End Date Luke Barger MD [address] [place] [address] [place] [address] PCP - General Family Practice 05/22/18 Residential Care Officer Relationship Specialty Start Date End Date Luke Barger MD [address] [place] [address] PCP - General Family Practice 05/22/18 Residential Care Officer Relationship Specialty Start Date End Date Luke Barger MD [address] [place] [address] PCP - General Family Practice 05/22/18 Residential Care Officer Relationship Specialty Start Date End Date Luke Barger MD [address] [place] [address] PCP - General Family Practice 05/22/18 Residential Care Officer Relationship Specialty Start Date End Date Luke Barger MD [address] [place] [address] PCP - General Family Medicine 05/22/18 Residential Care Officer Relationship Specialty Start Date End Date Luke Barger MD [address] [place] [address] PCP - General Family Medicine 05/22/18 Residential Care Officer Relationship Specialty Start Date End Date Luke Barger MD [address] [place] [address] PCP - General Family Medicine 05/22/18 Residential Care Officer Relationship Specialty Start Date End Date Luke Barger MD [address] [place] [address] PCP - General Family Medicine 05/22/18 Residential Care Officer Relationship Specialty Start Date End Date Luke Barger MD [address] [place] [address] PCP - General Family Medicine 05/22/18 Residential Care Officer Relationship Specialty Start Date End Date Luke Barger MD [address] [place] [address] PCP - General Family Medicine 05/22/18 Residential Care Officer Relationship Specialty Start Date End Date Luke Barger MD [address] [place] [address] PCP - General Family Medicine 05/22/18 Residential Care Officer Relationship Specialty Start Date End Date Luke Barger MD [address] [place] [address] PCP - General Family Medicine 05/22/18 Residential Care Officer Relationship Specialty Start Date End Date Luke Barger MD [address] [place] [address] PCP - General Family Medicine 05/22/18 Residential Care Officer Relationship Specialty Start Date End Date Luke Barger MD [address] [place] [address] PCP - General Family Medicine 05/22/18 Residential Care Officer Relationship Specialty Start Date End Date Luke Barger MD [address] [place] [address] PCP - General Family Medicine 05/22/18 Residential Care Officer Relationship Specialty Start Date End Date Luke Barger MD [address] [place] [address] PCP - General Family Medicine 05/22/18 (unrecognized sect ion and content) No Status Records FoundNo Status Records Found INFORMATION SOURCE (unrecogn ized section and content) DATE CREATED AUTHOR AUTHOR'S ORGANIZ ATION 12/26/2022 [facility] FOR RECORDS PERTAINING TO PATIENTS WHO ARE OR HAVE BEEN ENROLLED IN A CHEMICAL DEPENDENCY/SUBSTANCEABUSE PROGRAM, SOME INFORMATION MAY BE OMITTED. This clinical summary was aggregated from multiple sources. Caution should be exercised in using it in the provision of clinical care. This summary normalizes information from multiple sources, and as a consequence, information in this document may materially change the coding, format and clinical context of patient data. In addition, data may be omitted in some cases. CLINICAL DECISIONS SHOULD BE BASED ON THE PRIMARY CLINICAL RECORDS. [facility]. provides no warranty or guarantee of the accuracy or completeness of information in this document.
[2023-02-14 08:45] VITALS: BP 134/54; PULSE 82; RESP 18; O2SAT 98
[2023-02-14 08:55] VITALS: BP 130/59; PULSE 75; RESP 18; O2SAT 98
[2023-02-14 09:12] VITALS: BP 144/46; PULSE 81; RESP 16; TEMP 36.2; O2SAT 100
[2023-02-14] MEDS: Albumin Human 25% (100 mL) 25 GM/100 ML BAG IV (09:17)
[2023-02-14] MEDS: 0.9% NaCl Peripheral Flush Adult/Peds IV (09:17)
--- NOTE | 2023-02-14 09:56 | PCM.OP.PRO ---
Procedure Report Date of Procedure: 02/14/23 Assessment & Plan Assessment/Plan (1) Ascites: QUALIFIERS: Ascites type: other type Qualified Code(s): R18.8 - Other ascites PLAN: PROCEDURE: Ultrasound guided paracentesis ORDERING PROVIDER: Dr. Bright INDICATION: Male, 77 years old. Ascites. PROVIDER: IVANA Hidalgo TECHNIQUE: The risks, benefits, and alternatives to the procedure were explained to the patient. The specific risks of bleeding, infection, and damage to bowel were detailed and accepted. Witnessed informed consent was obtained. The abdomen was ultrasonographically surveyed. An appropriate pocket of fluid was identified in the right lower quadrant. The skin was prepped with chlorhexidine and sterile field established. 2% lidocaine was used for local anesthetic. Using ultrasound guidance, the peritoneal cavity was accessed with a 5-Mongolian paracentesis needle/catheter system. The trocar was removed. A total of 5100 ml of clear yellow colored fluid was removed from the peritoneal cavity. The catheter was removed and a sterile dressing was applied. The procedure was well tolerated. IMPRESSION: Successful ultrasound-guided paracentesis with right lower quadrant access site. Procedures Radiology Radiology US Procedures: [id number] Paracentesis
[2023-02-14 11:02] VITALS: BP 136/53; PULSE 65; RESP 18; TEMP 36.4; O2SAT 96
== END | disposition home or self-care (01) ==
LOC: US 08:00
PROVIDERS: PCP Family Medicine Geriatric Medicine; Referring Provider Family Medicine Geriatric Medicine; Visit Provider Family Medicine Geriatric Medicine
DX: K74.60 Unspecified cirrhosis of liver (principal)
CPT/HCPCS: 96365; 96366; 49083; J7050; P9047; A4216

== ENCOUNTER → 2023-02-21 | Outpatient (CLI) | payer MEDICARE, OTHER, SELFPAY ==
[2023-02-21 10:54] VITALS: BP 143/84; PULSE 92; RESP 18; TEMP 36.6; O2SAT 95
[2023-02-21 11:00] VITALS: BP 133/66; PULSE 82; RESP 18; O2SAT 98
[2023-02-21] MEDS: Lidocaine 2% (20 ml mdv) 20 ML Vial INFILT (11:00)
[2023-02-21 11:15] VITALS: BP 115/50; PULSE 67; RESP 18; O2SAT 97
[2023-02-21 11:25] VITALS: BP 120/63; PULSE 68; RESP 18; TEMP 36.6; O2SAT 98
--- NOTE | 2023-02-21 12:20 | PRO.PCM_ITS ---
Procedure Report Date of Procedure: 02/21/23 Assessment & Plan Assessment/Plan (1) Ascites: QUALIFIERS: Ascites type: other type Qualified Code(s): R18.8 - Other ascites PLAN: PROCEDURE: Ultrasound guided paracentesis ORDERING PROVIDER: Dr. Bright INDICATION: Male, 77 years old. Ascites. PROVIDER: IVANA Hidalgo TECHNIQUE: The risks, benefits, and alternatives to the procedure were explained to the patient. The specific risks of bleeding, infection, and damage to bowel were detailed and accepted. Witnessed informed consent was obtained. The abdomen was ultrasonographically surveyed. An appropriate pocket of fluid was identified in the left lower quadrant. The skin was prepped with chlorhexidine and sterile field established. 2% lidocaine was used for local anesthetic. Using ultrasound guidance, the peritoneal cavity was accessed with a 5-Macedonian paracentesis needle/catheter system. The trocar was removed. A total of 4950 ml of clear yellow colored fluid was removed from the peritoneal cavity. The catheter was removed and a sterile dressing was applied. The procedure was well tolerated. IMPRESSION: Successful ultrasound-guided paracentesis with left lower quadrant access site. Procedures Radiology Radiology US Procedures: [id number] Paracentesis
== END | disposition home or self-care (01) ==
PROVIDERS: PCP Family Medicine Geriatric Medicine; Referring Provider Family Medicine Geriatric Medicine; Visit Provider Family Medicine Geriatric Medicine
DX: R18.8 Other ascites (principal)
CPT/HCPCS: 49083

== ENCOUNTER → 2023-02-28 | Outpatient (CLI) | payer MEDICARE, OTHER, SELFPAY ==
[2023-02-28 09:47] VITALS: BP 137/66; PULSE 78; RESP 18; O2SAT 94
[2023-02-28] MEDS: Lidocaine 2% (20 ml mdv) 20 ML Vial INFILT (09:53)
--- OUTSIDE RECORDS SUMMARY | 2023-02-28 09:56 | XMS RPT_ITS | CCD ---
Author Name Unknown Address [address] [place] [address] Organization [facility] Care Team Providers Care Packaging Inspector Name Role Phone SaranyaRadha blanco E Unavailable Ming Garrido Unavailable Physical Therapy, [facility] Unavailable Bebeto Marrufo Unavailable [phone] Ryan Shine Unavailable Matheus Mills Unavailable Darrian Martin Unavailable [phone] Mansi Sanabria Unavailable Darrian Martin Unavailable [phone] Eboni Cisse Unavailable Martinez Srinivasan Unavailable [...] Translations: [ALOE VERA] Drug Allergy 02-24-2014 Rash [facility] (20 sources) Diclofenac; Translations: [DICLOFENAC] Drug Allergy 02-28-2011 Intolerance [facility] Medications Current Medications Medication Drug Class(es) Dates Sig (Normalized) Sig (Original) [id number] 200 actuat albuterol 0.09 mg/actuat metered dose [...] 88.91 kg Luke Barger MD Work Phone: [facility] 10-14-2022 18:04-0400 Diastolic blood pressure 80 mm[Hg] Luke Barger MD Work Phone: [facility] 10-14-2022 18:04-0400 Heart rate 72 /min Luke Barger MD Work Phone: [facility] 10-14-2022 18:04-0400 Respiratory rate 18 /min Luek Barger MD Work Phone: [facility] 10-14-2022 18:04-0400 Systolic blood pressure 130 mm[Hg] Luke Barger MD Work Phone: [facility] 05-09-2022 10:11-0400 Body weight 85.19 kg Luke Barger MD Work Phone: [facility] 05-09-2022 10:11-0400 Diastolic blood pressure 64 mm[Hg] Luke Barger MD Work Phone: [facility] 05-09-2022 10:11-0400 Heart rate 76 /min Luke Barger MD Work Phone: [facility] 05-09-2022 10:11-0400 Respiratory rate 20 /min Luke Barger MD Work Phone: [facility] 05-09-2022 10:11-0400 SaO2% (BldA) [Mass fraction] 99 % Luke Barger MD Work Phone: [facility] 05-09-2022 10:11-0400 Systolic blood pressure 130 mm[Hg] Luke Barger MD Work Phone: [facility] 01-24-2022 08:07-0500 Body temperature 98.2 [degF] Luke Barger MD Work Phone: [facility] 01-24-2022 08:07-0500 Body weight 105.69 kg Luke Barger MD Work Phone: [facility] 01-24-2022 08:07-0500 Diastolic blood pressure 90 mm[Hg] Luke Barger MD Work Phone: [facility] 01-24-2022 08:07-0500 Heart rate 78 /min Luke Barger MD Work Phone: [facility] 01-24-2022 08:07-0500 Respiratory rate 20 /min Luke Barger MD Work Phone: [facility] 01-24-2022 08:07-0500 SaO2% (BldA) [Mass fraction] 94 % Luke Barger MD Work Phone: [facility] 01-24-2022 08:07-0500 Systolic blood pressure 150 mm[Hg] Luke Barger MD Work Phone: [facility] 12-02-2021 12:17-0400 Body temperature 97.59 [degF] Felicita Celsa BAND LINING BANDER.K 9 HANDLER/ DEPUTY Work Phone: [facility] 12-02-2021 12:17-0400 Body weight 99.79 kg Felicita Celsa BAND LINING BANDER.K 9 HANDLER/ DEPUTY Work Phone: [facility] 12-02-2021 12:17-0400 Diastolic blood pressure 76 mm[Hg] Felicita Celsa BAND LINING BANDER.K 9 HANDLER/ DEPUTY Work Phone: [facility] 12-02-2021 12:17-0400 Heart rate 94 /min Felicita Celsa BAND LINING BANDER.K 9 HANDLER/ DEPUTY Work Phone: [facility] 12-02-2021 12:17-0400 Respiratory rate 21 /min Felicita Celsa BAND LINING BANDER.K 9 HANDLER/ DEPUTY Work Phone: [facility] 12-02-2021 12:17-0400 SaO2% (BldA) [Mass fraction] 95 % Felicita Celsa BAND LINING BANDER.K 9 HANDLER/ DEPUTY Work Phone: [facility] 12-02-2021 12:17-0400 Systolic blood pressure 182 mm[Hg] Felicita Celsa BAND LINING BANDER.K 9 HANDLER/ DEPUTY Work Phone: [facility] 11-15-2021 18:44-0400 Body temperature 97.2 [degF] Carmen Praisler-Wood BAND LINING BANDER.K 9 HANDLER/ DEPUTY Work Phone: [facility] 11-15-2021 18:44-0400 Body weight 96.07 kg Carmen Praisler-Wood BAND LINING BANDER.K 9 HANDLER/ DEPUTY Work Phone: [facility] 11-15-2021 18:44-0400 Diastolic blood pressure 78 mm[Hg] Carmen Praisler-Wood BAND LINING BANDER.K 9 HANDLER/ DEPUTY Work Phone: [facility] 11-15-2021 18:44-0400 Heart rate 79 /min Carmen Praisler-Wood BAND LINING BANDER.K 9 HANDLER/ DEPUTY Work Phone: [facility] 11-15-2021 18:44-0400 Respiratory rate 18 /min Carmen Praisler-Wood BAND LINING BANDER.K 9 HANDLER/ DEPUTY Work Phone: [facility] 11-15-2021 18:44-0400 SaO2% (BldA) [Mass fraction] 97 % Carmen Praisler-Wood BAND LINING BANDER.K 9 HANDLER/ DEPUTY Work Phone: [facility] 11-15-2021 18:44-0400 Systolic blood pressure 156 mm[Hg] Carmen Praisler-Wood BAND LINING BANDER.K 9 HANDLER/ DEPUTY Work Phone: [facility] 10-17-2021 09:59-0400 Diastolic blood pressure 71 mm[Hg] Geovanny Baca MD Work Phone: [facility] 10-17-2021 09:59-0400 Heart rate 65 /min Geovanny Baca MD Work Phone: [facility] 10-17-2021 09:59-0400 Respiratory rate 28 /min Geovanny Baca MD Work Phone: [facility] 10-17-2021 09:59-0400 SaO2% (BldA) [Mass fraction] 99 % Geovanny Baca MD Work Phone: [facility] 10-17-2021 09:59-0400 Systolic blood pressure 166 mm[Hg] Geovanny Baca MD Work Phone: [facility] 10-17-2021 09:45-0400 Body temperature 98.6 [degF] Geovanny Baca MD Work Phone: [facility] 10-05-2021 08:45-0400 Body height 166.4 cm Pacc 1 Work Phone: [facility] 10-05-2021 08:45-0400 Body temperature 97 [degF] Pacc 1 Work Phone: [facility] 10-05-2021 08:45-0400 Body weight 97.52 kg Pacc 1 Work Phone: [facility] 10-05-2021 08:45-0400 Diastolic blood pressure 68 mm[Hg] Pacc 1 Work Phone: [facility] 10-05-2021 08:45-0400 Heart rate 67 /min Pacc 1 Work Phone: [facility] 10-05-2021 08:45-0400 Respiratory rate 16 /min Pacc 1 Work Phone: [facility] 10-05-2021 08:45-0400 SaO2% (BldA) [Mass fraction] 93 % Pacc 1 Work Phone: [facility] 10-05-2021 08:45-0400 Systolic blood pressure 134 mm[Hg] Pacc 1 Work Phone: [facility] 09-04-2021 13:16-0400 Body height 167.6 cm Geovanny Baca MD Work Phone: [facility] 07-19-2022 13:16-0400 Body temperature 97 [degF] Geovanny Baca MD Work Phone: [facility] 09-04-2021 13:16-0400 Body weight 96.62 kg Geovanny Baca MD Work Phone: [facility] 09-04-2021 13:16-0400 Diastolic blood pressure 62 mm[Hg] Geovanny Baca MD Work Phone: [facility] 09-04-2021 13:16-0400 Heart rate 99 /min Geovanny Baca MD Work Phone: [facility] 09-04-2021 13:16-0400 SaO2% (BldA) [Mass fraction] 93 % Geovanny Baca MD Work Phone: [facility] 09-04-2021 13:16-0400 Systolic blood pressure 156 mm[Hg] Geovanny Baca MD Work Phone: [facility] 09-04-2021 08:43-0400 Body weight 97.52 kg Luke Barger MD Work Phone: [facility] 09-04-2021 08:43-0400 Diastolic blood pressure 74 mm[Hg] Luke Barger MD Work Phone: [facility] 09-04-2021 08:43-0400 Heart rate 62 /min Luke Barger MD Work Phone: [facility] 09-04-2021 08:43-0400 Respiratory rate 16 /min Luke Barger MD Work Phone: [facility] 09-04-2021 08:43-0400 Systolic blood pressure 138 mm[Hg] Luke Barger MD Work Phone: [facility] 07-12-2021 14:22-0400 Body height 169 cm Filomena Allen BAND LINING BANDER.K 9 HANDLER/ DEPUTY Work Phone: [facility] 07-12-2021 14:22-0400 Body weight 102.06 kg Filomena Allen BAND LINING BANDER.K 9 HANDLER/ DEPUTY Work Phone: [facility] 07-12-2021 14:22-0400 Diastolic blood pressure 70 mm[Hg] Filomena Allen BAND LINING BANDER.K 9 HANDLER/ DEPUTY Work Phone: [facility] 07-12-2021 14:22-0400 Heart rate 65 /min Filomenajuventino Allen BAND LINING BANDER.K 9 HANDLER/ DEPUTY Work Phone: [facility] 07-12-2021 14:22-0400 Respiratory rate 16 /min Filomenajuventino Allen BAND LINING BANDER.K 9 HANDLER/ DEPUTY Work Phone: [facility] 07-12-2021 14:22-0400 SaO2% (BldA) [Mass fraction] 95 % Filomena Tiffany BAND LINING BANDER.K 9 HANDLER/ DEPUTY Work Phone: [facility] 07-12-2021 14:22-0400 Systolic blood pressure 160 mm[Hg] Filomenajuventino Allen BAND LINING BANDER.K 9 HANDLER/ DEPUTY Work Phone: [facility] 01-13-2018 13:06-0500 BMI (Body Mass Index) 35.7 kg/m2 [facility] Work Phone: 01-13-2018 13:06-0500 Body Temperature 98.7 [degF] [facility] Work Phone: Encounters Encounter Date [...] flx dx w/collj spec when pfrmd Geovanny Baca MD Work Phone: Start: 10-17-2021 End: 10-17-2021 Gluc bld gluc mntr dev cleared fda spec home use Richard Agee BAND LINING BANDER.ACCESSIONER Work Phone: Start: 10-17-2021 Colonoscopy Carmen Rock BAND LINING BANDER.K 9 HANDLER/ DEPUTY Work Phone: Start: 07-12-2021 Adult depression screening assessment Filomena Allen BAND LINING BANDER.K 9 HANDLER/ DEPUTY Work Phone: Start: 07-21-2019 End: 07-21-2019 Blood [...] Start: 05-22-2018 Adult depression screening assessment Adolfo Ryedr BAND LINING BANDER.K 9 HANDLER/ DEPUTY Work Phone: Start: 01-09-2018 End: 01-09-2018 Emergency Department Summary Comments: See Note; NOTES: [facility] Medical Records Department [address] [place] [address] Emergency Department Summary 01/09/18 0645 MR#: [id number] Acct: [id number] Name: RICHARD VARGAS Rep #: [id number] : 1945 72 From: Ermelinda Deng MD [...] Parkinson's disease This note was generated with [employer] dictation software. It may contain incorrect words, spelling, and punctuation that were not noted in review of the chart prior to signing ED Disposition - Plan for ED Patient: Chief Complaint: Syncope Referrals: Radha Torres, POWER GENERATION PLANT OPERATOR-C [Primary Care Provider] - What to do if you have Problems For any increased pain, shortness of breath, bleeding, nausea or vomiting, chest pain, or any unexpected problems, contact your Primary Care Provider. Call [facility] ([phone]) or report to the closest Emergency Room. Call 911 if necessary. 01/09/18 0753 <Electronically signed by Ermelinda Deng MD> Date Ermelinda Deng MD Cosigner Signature (If Indicated): Date CC: Radha Torres Start: 01-09-2018 End: 01-09-2018 Brain/Head without Contrast Comments: See Note; NOTES: [facility] Imaging Services [address] [place] [address] Brain/Head without Contrast MR#: [id number] Acct: [id number] Name: RICHARD VARGAS Rep #: [id number] : 1945 M 72 From: James Faustin MD PCP: Radha Torres NP Status: REG ER Study: Brain/Head without Contrast Date of Exam: 01/09/18 Exam# [id number] Ordering Dr: Ermelinda Deng MD STUDY: CT [...] CC: Radha Torres NP; Ermelinda Deng MD Supervisor Transferring And Boxing: Signed Radha Torres Start: 01-09-2018 End: 01-09-2018 Chest 1 View Comments: See Note; NOTES: [facility] Imaging Services [address] [place] [address] Chest 1 View MR#: [id number] Acct: [id number] Name: RICHARD VARGAS Rep #: [id number] : 1945 M 72 From: James Faustin MD PCP: Radha Torres NP Status: REG ER Study: Chest 1 View Date of Exam: 01/09/18 Exam# [id number] Ordering Dr: Ermelinda Deng MD STUDY: X-RAY [...] CC: Radha Torres NP; Ermelinda Deng MD Supervisor Transferring And Boxing: Signed Radha Torres Start: 02-26-2017 End: 02-26-2017 Chest WITH Contrast Comments: See Note; NOTES: [facility] Imaging Services [address] [place] [address] Chest WITH Contrast MR#: [id number] Acct: [id number] Name: RICHARD VARGAS Rep #: [id number] : 1945 M 71 From: Amadeo Dc MD PCP: Cindy Maria DO Status: REG CLI Study: Chest WITH Contrast Date of Exam: 02/26/17 Exam# [id number] Ordering Dr: Cindy Maria DO STUDY: CT CHEST/THORAX WITH CONTRAST REASON [...] spleen. Although not fully included in the [id number], spleen appears upper limits of normal size. [...] Service support , CC: Cindy Maria DO Supervisor Transferring And Boxing: Signed Cindy Maria Work Phone: Start: 02-27-2016 End: 02-27-2016 Emergency Department Summary Comments: See Note; NOTES: [facility] Medical Records Department [address] [place] [address] Emergency Department Summary MR#: [id number] Acct: [id number] Name: RICHADR VARGAS Rep #: [id number] : 1945 70 From: Richard Miranda MD PCP: Piyush Sanabria Status: [facility] ER DATE OF SERVICE: 02/27/2016 [...] Discharge. Richard Miranda MD T: NTS JOB: [id number] 02/27/16 033 <Electronically signed by Richard Miranda MD> Date Richard Miranda MD Cosigner Signature (If Indicated): Date CC: Piyush Sanabria Date Dictated: 02/27/16150 Date Transcribed: 02/27/16150 Supervisor Transferring And Boxing: Corey Torres Start: 02-27-2016 End: 02-27-2016 Discharge Instruction Comments: See Note; NOTES: [facility] Medical Records Department [address] [place] [address] Discharge Instruction 02/27/16 0149 MR#: [id number] Acct: [id number] Name: SOHANRICHARD Rep #: [id number] : 1945 70 From: Richard Miranda MD [...] your Primary Care Provider. Call [facility] ([phone]) or report to the closest Emergency Room. Call 911 if necessary. 02/27/16 0154 <Electronically signed by Richard Miranda MD> Date Richard Ruth MD Cosigner Signature (If Indicated): Date CC: Piyush Torres Start: 11-30-2015 Biopsy of bone marrow Radha Torres Plan of Treatment Date Care Activity Detail Author Start: 07-19-2029 Urine microalbumin profile [facility] Start: 10-17-2026 Colonoscopy COLONOSCOPY [facility] Start: 10-17-2026 COLORECTAL CANCER SCREENING COLORECTAL CANCER SCREENING [facility] Start: 10-15-2023 ANNUAL PCP TEAM CHRONIC DISEASE VISIT ANNUAL PCP TEAM CHRONIC DISEASE VISIT [facility] Start: 05-14-2023 Hemoglobin A1c/Hemoglobin.total in Blood HbA1C [facility] Start: 05-10-2023 ANNUAL PCP TEAM CHRONIC DISEASE VISIT ANNUAL PCP TEAM CHRONIC DISEASE VISIT [facility] Start: 04-26-2023 Hepatitis C antibody, confirmatory test DILATED RETINAL EXAM [facility] Start: 01-24-2023 ANNUAL PCP TEAM CHRONIC DISEASE VISIT ANNUAL PCP TEAM CHRONIC DISEASE VISIT [facility] Start: 11-09-2022 Hemoglobin A1c/Hemoglobin.total in Blood HBA1C [facility] Start: 10-18-2022 Influenza vaccination [facility] Start: 10-14-2022 End: 12-14-2022 CBC panel - Blood by Automated count CBC Lab Routine Essential hypertension Expected: 10/14/2022 (Approximate), Expires: 12/14/2022 [facility] Work Phone: Immunizations Immunization Date Immunization Notes Care Provider Georgina keller 01-24-2022 influenza, high-dose , quadrivalent vaccine (FLUZONE HIGH DOSE QUADRIVALENT) Luke Barger MD Work Phone: [facility] 01-24-2022 influenza virus vaccine, unspecified formulation Filomena Allen BAND LINING BANDER.K 9 HANDLER/ DEPUTY Work Phone: [facility] 11-19-2019 influenza, high-dose , quadrivalent vaccine (FLUZONE HIGH DOSE QUADRIVALENT) Adolfo Ryder APRN.K 9 HANDLER/ DEPUTY Work Phone: [facility] 07-20-2019 tetanus toxoid, reduced diphtheria toxoid, and acellular pertussis vaccine, adsorbed Adolfo Caldwellil BAND LINING BANDER.K 9 HANDLER/ DEPUTY Work Phone: [facility] Work Phone: 11-06-2018 influenza, high dose seasonal, preservative-free Adolfo Rosalio BAND LINING BANDER.K 9 HANDLER/ DEPUTY Work Phone: [facility] 02-18-2016 tetanus and diphther ia toxoids, adsorbed, preservative free, for adult use (2 Lf of tetanus toxoid and 2 Lf of diphtheria toxoid) [facility] Work Phone: 04-13-2015 pneumococcal conjuga te vaccine, 13 valent Adolfo Rosalio BAND LINING BANDER.K 9 HANDLER/ DEPUTY Work Phone: [facility] Work Phone: 12-20-2014 influenza, high dose seasonal, preservative-free Adolfo Rosalio BAND LINING BANDER.K 9 HANDLER/ DEPUTY Work Phone: [facility] 02-17-2014 influenza, seasonal, injectable [facility] Work Phone: 11-01-2013 influenza, seasonal, injectable Adolfo Rosalio BAND LINING BANDER.K 9 HANDLER/ DEPUTY Work Phone: [facility] 11-01-2013 zoster vaccine, live Adolfo C ecil BAND LINING BANDER.K 9 HANDLER/ DEPUTY Work Phone: [facility] 11-04-2012 influenza virus vaccine, unspecified formulation Adolfo Rosalio BAND LINING BANDER.K 9 HANDLER/ DEPUTY Work Phone: [facility] 02-15-2009 pneumococcal polysaccharide vaccine, 23 valent Adolfo Rosalio BAND LINING BANDER.K 9 HANDLER/ DEPUTY Work Phone: [facility] 12-16-2008 influenza virus vaccine, unspecified formulation Adolfo Rosalio BAND LINING BANDER.K 9 HANDLER/ DEPUTY Work Phone: [facility] Work Phone: 12-23-2007 influenza virus vaccine, unspecified formulation Adolfo Rosalio BAND LINING BANDER.K 9 HANDLER/ DEPUTY Work Phone: [facility] Work Phone: 11-21-2005 tetanus toxoid, reduced diphtheria toxoid, and acellular pertussis vaccine, adsorbed Adolfo Rosalio BAND LINING BANDER.K 9 HANDLER/ DEPUTY Work Phone: [facility] Work Phone: Payers Date Payer Category Payer Medicare MEDICARE MEDICAR E A AND B [id number] 2008-Present [phone] [place] [address] Medicare [id number] 2008 Medicare MEDICARE MEDICAR E A AND B [id number] 2008-Present [phone] [place] [address] Medicare [id number] 2008 Medicare [id number] 2005 Private Health Insurance CIGDALILA WONG PPO [id number] 2005-Present [phone] [address] [place] [address] PPO [id number] 2005 Private Health Insurance CIGDALILA LERNERA PPO [id number] 2005-Present [phone] [address] [place] [address] PPO [id number] 2005 Private Health Insurance [id number] Unknown Social History Date Type Detail Facility Start: 05-09-2022 End: 10-10-2022 Alcohol Use Former smoker 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 Author [...] some Tylenol which helped. He was in [place] from Feb to Fe after having heart attack. His daughter lives with him. Depression: pt was on lexapro but stated it was stopped while he was in the shelter. He would like to go back on [...] INSJ IO LENS PROSTH W/O ECP Bilateral [facility] Family History FAMILY HISTORY Problem Relation Age of Onset Stroke Mother other (cirrhosis) Father Diabetes Br (more content not included)... [facility] 10-14-2022 Instructions Luke Barger MD - 10/14/2022 6:35 PM EDT Bring your medications with you at your next appointment Get lab work done a few days before your appointment documented in this encounter [facility] 10-14-2022 History of Presen t illness Narrative [...] some Tylenol which helped. He was in [place] from Feb to Mar after having heart attack. His daughter lives with him. Depression: pt was on lexapro but stated it was stopped while he was in the shelter. He would like to go back on [...] INSJ IO LENS PROSTH W/O ECP Bilateral [facility] Family History FAMILY HISTORY Problem Relation [...] Past Histories independently gathered by the clinical postal support employee and the remaining scribed note accurately describes [...] Avis Caruso Ma documented in this encounter [facility] 10-07-2022 Miscellaneous Notes Pt notified and voiced [...] Taylor Hammond LPN documented in this encounter [facility] 05-10-2022 Miscellaneous Notes OK; Rx sent to Thiago Barger MD Patient calls to request Synthroid prescription be sent to [facility]. Patient reports he is no longer using [facility]. Last OV: 05/09/2022 Next OV: 06/14/2022 Bertha Yost RN documented in this encounter [facility] 05-10-2022 Miscellaneous Notes Called and left a [...] Luke Barger MD documented in this encounter [facility] 05-09-2022 Note HNO ID: [id number] Author: Luke Barger MD Service: ? Author [...] and confusion. Pt discharged on 03/13/22 to [place]. Pt d/c home on 04/11/22. Daughter lives [...] 2 L at bedtime. Receives supplies through [employer]. Former smoker, quit in 2019. Falls - Has had several falls over the past year. Denies any new falls he believes since being d/c from [place] on 04/11/22. Generally uses a walker/rollator or [...] - Requested for PT OT eval and social work associate to assist with discharge planning 13. Pancytopenia -due to chronic liver disease, monitoring with daily CBCs Past medical history, appointments, medications, allergies reviewed. Previous Medical History PAST MEDICAL HISTORY (more content not included)... [facility] 05-09-2022 Instructions Lucretia Arriaza Ma - 05/09/2022 10:44 AM EDT Schedule follow up with Dr. Hdez (Operations Analyst/GI) who you seen at [facility]. They will review your stomach and liver issues. Phone #: [phone]. Follow up in 1 month. Lexapro prescription was sent to local pharmacy. Complete labs today, will call with results. documented in this encounter [facility] 05-09-2022 History of Presen t illness Narrative Chief Complaint Patient presents with: SNF follow up HPI Richard Vargas is a 76 year old male who presents here today for a SNF follow up. Pt here today for a SNF f/u. Pt admitted into [facility] on 03/06/22 with increased sob and confusion. Pt discharged on 03/13/22 to [place]. Pt d/c home on 04/11/22. Daughter lives [...] to himself when he remembers. Follows with [facility], wants to get new [...] 2 L at bedtime. Receives supplies through [employer]. Former smoker, quit in 2019. Falls - Has had several falls over the past year. Denies any new falls he believes since being d/c from [place] on 04/11/22. Generally uses a walker/rollator or wheelchair. Pt states that [facility] [place] [facility], [facility] came out 2-3 [...] - Requested for PT OT eval and social work associate to assist with discharge planning 13. Pancytopenia [...] INSJ IO LENS PROSTH W/O ECP Bilateral [facility] Family History FAMILY HISTORY Problem Relation [...] SCREENING Completed PNEUMOCOCCAL: 65+ Completed Data reviewed [facility] documents ASSESSMENT/PLAN: 1. [...] Past Histories independently gathered by the clinical postal support employee and the remaining scribed note accurately describes [...] Lucretia Arriaza Ma documented in this encounter [facility] 04-25-2022 Miscellaneous Notes Pt notified via identified [...] medication list. Can this be sent to [facility] pharmacy in [place]. Patient believes he misplaced that RX and can not find the medication, he believes he threw them away in all house cleaning. Patient has been identified by name and birthdate. Person calling: self Call patient at: at home [phone] (home) [phone] (cell) Was an appointment scheduled: No Closing statement: Results or non-symptom based questions: Thank you for calling [facility], your call will be returned within the next business day. [employer] documented in this encounter [facility] 04-25-2022 Note HNO ID: [id number] Author: Bandar Cardona, GENESIS Service: ? Author Type: INSTALLER TECHNICIAN Type: Progress Notes Filed: 04/25/2022 9:17 AM Note Text: 1. Controlled type 2 diabetes mellitus with complication, without long-term current use of insulin (HCC) Risk of diabetic changes and vision loss can be minimized by tight control of blood sugar, blood pressure, and cholesterol levels. Educated patient to continue care with primary care doctor and/or director media to maintain optimum levels as they are [...] Cardona, OD April 25, 2022 9:16 AM [facility] 04-25-2022 History of Presen t illness Narrative 1. Controlled type 2 diabetes mellitus with complication, without long-term current use of insulin (HCC) Risk of diabetic changes and vision loss can be minimized by tight control of blood sugar, blood pressure, and cholesterol levels. Educated patient to continue care with primary care doctor and/or director media to maintain optimum levels as they are [...] 2022 9:16 AM documented in this encounter [facility] 04-25-2022 Instructions Bandar Cardona, OD - 04/25/2022 9:10 AM EST Use Systane, Refresh or Blink gel once in the morning and once before bed in both eyes documented in this encounter [facility] 04-25-2022 Miscellaneous Notes Detailed VM left on [...] be sent today. Please call him at [phone] when sent. Patient has been identified by name and date of : Yes Requested Prescriptions Pending Prescriptions Disp Refills rOPINIRole (REQUIP) 2 mg tablet 90 tablet 3 Sig: Take 1 tablet by mouth daily at bedtime. RX INSTRUCTIONS: Patient aware RX will be sent to pharmacy. No need to notify patient. Arely Delarosa Pss documented in this encounter [facility] 01-24-2022 Note HNO ID: [id number] Author: Luke Barger MD Service: ? Author [...] to [facility] ER by [facility]. Xrays done with report below. ER [...] INSJ IO LENS PROSTH W/O ECP Bilateral [facility] Family History FAMILY HISTORY Problem [...] gabapentin (NEURONTIN) 300 (more content not included)... [facility] 01-24-2022 History of Presen t illness Narrative [...] INSJ IO LENS PROSTH W/O ECP Bilateral [facility] Family History FAMILY HISTORY Problem Relation Age [...] Past Histories independently gathered by the clinical postal support employee and the remaining scribed note accurately describes [...] Avis Caruso Ma documented in this encounter [facility] 12-26-2021 Miscellaneous Notes Called and left a [...] Please advise and return his call at [phone] Called and left a detailed voicemail notifying [...] for his arthritis ? Contact patient at [phone]. Mariah José Pss documented in this encounter [facility] 12-02-2021 History of Presen t illness Narrative Subjective The history is provided by the patient and a relative. No english language learner teacher was used. HPI Richard Vargas is [...] have confirmed and edited as necessary, the [facility] Review of Systems Constitutional: Negative for chills [...] and lack of investigative tools available at [facility], recommend patient be seen at nearest ED for further work up ERpassport sent to [place] [facility] to transport, [facility]. Diagnosis and treatment plan were discussed and questions were answered to the patient's satisfaction. Pt acknowledged understanding of concepts and follow up plan. Specific signs and symptoms that would indicate the need for higher level of care were discussed in detail warranting prompt ER evaluation. Felicita Steen APRN.MARU documented in this encounter [facility] 11-16-2021 Miscellaneous Notes Noted; that should be fine Luke Barger MD documented in this encounter [facility] 11-15-2021 History of Presen t illness Narrative [...] INSJ IO LENS PROSTH W/O ECP Bilateral [facility] ALLERGIES Aloe Vera and Diclofenac [...] Carmen Rock APRN.CNP documented in this encounter [facility] 11-15-2021 Instructions Carmen Rock APRN.CNP - 11/15/2021 [...] Carmen Rock APRN.CNP documented in this encounter [facility] 11-15-2021 Miscellaneous Notes The following approved medication requests have been transmitted electronically. Requested Prescriptions Pending Prescriptions Disp Refills rOPINIRole (REQUIP) 2 mg tablet 90 tablet 3 Sig: Take 1 tablet by mouth daily at bedtime. Filomena Allen APRN.CNP Pharmacy verified in [facility] Patient has been identified by name [...] kg (213 lb) Please advise. Maria L Oritz documented in this encounter [facility] 10-17-2021 History and physical note Images from [...] INSJ IO LENS PROSTH W/O ECP Bilateral [facility] CURRENT MEDICATIONS Current Outpatient Medications [...] entered by the nurse and reviewed by in Nursing Notes: Radha Arenas LPN 09/04/2021 1:22 [...] anesthetic care. This will be done in [place] Diagnoses: (L81.9) Pigmented skin lesion of uncertain [...] TIME: 8:47 AM documented in this encounter [facility] 10-11-2021 Miscellaneous Notes The following approved medication [...] Last Labs: 06/28/2021 documented in this encounter [facility] 10-05-2021 Instructions Luzmaria Ruiz APRN.K 9 HANDLER/ DEPUTY - 10/05/2021 9:01 AM EDT PATIENT PREOPERATIVE INSTRUCTIONS Geovanny Baca MD has scheduled you for your procedure at this surgery center: [facility]: [phone] -- [address] [facility] [address]. Please read below carefully for your personalized [...] Procedures: - YOU MUST HAVE A RESPONSIBLE FISCAL ANALYST TAKE YOU HOME. A SERGEANT MISSILE CREWMAN OR PRECONSTRUCTION MANAGER CANNOT BE MADE A RESPONSIBLE FISCAL ANALYST. - We recommend that a responsible person [...] Advance Directive, please fax a copy to [phone] or email to for it to be [...] Luzmaria Ruiz APRN.MARU documented in this encounter [facility] 10-05-2021 History and physical note HISTORY AND [...] pain, CHF, congenital heart defect, DVT/PE, recent [place], murmur/valvular heart disease, open heart surgery and [...] INSJ IO LENS PROSTH W/O ECP Bilateral [facility] FAMILY HISTORY Problem Relation Age of [...] or any previous visit (from the past 59996 hour(s)). Assessment Acquired hypothyroidism Assessment: stable on [...] sleepy during the daytime STOP-Bang Score: 7 [id number] Score: Age: >=75 Sex: male CHF history: No Hypertension history: Yes Stroke/TIA/thromboembolism history: No Vascular disease history: No Diabetes history: Yes [id number] Score: 4 ARISCAT Score: Age: 51-80 Preoperative [...] and consent discussed: yes. Patient / Responsible Alliance Party agrees to proceed: yes Patient / Surrogate [...] AM PAGER/CONTACT #: documented in this encounter [facility] 09-18-2021 Instructions Sulma Davis - 09/18/2021 9:02 AM EDT The following instructions are important for you related to your office visit today with the [facility]. Instructions After Skin Excison and [...] you should contact our office immediately @ [phone] and ask to be transferred to the General Surgery department. documented in this encounter [facility] 09-18-2021 History of Presen t illness Narrative [...] labeled. Sulma Davis documented in this encounter [facility] 09-04-2021 Instructions Geovanny Baca MD - 09/04/2021 [...] If you do not have a responsible dumpcart driver (family member or friend) with you [...] preparation solution at your local pharmacy or [facility]. 01/2019 Bowel Preparation Instructions for: [...] exam. 3 01/2019 documented in this encounter [facility] 09-04-2021 History of Presen t illness Narrative [...] INSJ IO LENS PROSTH W/O ECP Bilateral [facility] Current Outpatient Medications Medication Sig meloxicam (MOBIC) [...] entered by the nurse and reviewed by in Nursing Notes: Radha Arenas LPN 09/04/2021 1:22 [...] anesthetic care. This will be done in [place] Diagnoses: (L81.9) Pigmented skin lesion of uncertain [...] Radha Arenas LPN documented in this encounter [facility] 09-04-2021 History of Presen t illness Narrative [...] butt cheek. Would like to go to [facility] or Sur[facility]. Past medical history, appointments, medications, [...] INSJ IO LENS PROSTH W/O ECP Bilateral [facility] Family History FAMILY HISTORY Problem Relation [...] Past Histories independently gathered by the clinical postal support employee and the remaining scribed note accurately describes [...] Avis Caruso Ma documented in this encounter [facility] 08-28-2021 Miscellaneous Notes See other phone note Luke Barger MD Patient reports he was seen in [facility] on 08/24/21 after a fall. He [...] seen on 09/04. Requesting [facility] in [place]. Please call patient with advise. Thank you. documented in this encounter [facility] 08-27-2021 Miscellaneous Notes Patient went to express [...] something for pain. documented in this encounter [facility] 07-12-2021 Instructions Filomena Allen APRN.CNP - 07/12/2021 2:43 PM EDT 1.) Get repeat labs in 1 month. 2.) Complete stool sample to check for blood. 3.) [facility] [place] 4.) Keep scheduled appointment with Pulmonology at [place]. 5.) Continue to work on eating a low carb diet, increase protein and veggies. 6.) Follow up in 3 months or sooner as needed. documented in this encounter [facility] 07-12-2021 History of Presen t illness Narrative [...] INSJ IO LENS PROSTH W/O ECP Bilateral [facility] ALLERGIES: Aloe Vera and Diclofenac [...] not work. Will be seeing pulmonology at [place] in [place] in August. Quit smoking 3 years ago. [...] INSJ IO LENS PROSTH W/O ECP Bilateral [facility] ALLERGIES Aloe Vera and Diclofenac [...] discussed and patient voices understanding. Filomena Allen APRN.K 9 HANDLER/ DEPUTY This note was partially generated using [employer] recognition system. Note was reviewed for accuracy. There may be minor misspellings or grammar miscues with [employer] voice recognition. documented in this encounter [facility] 06-14-2021 History of Presen t illness Narrative [employer] [facility] Enrollment Provider Action/FYI: 3 attempts to reach patient in 2020 for enrollment unsuccessful. [employer] introduction message sent recently- not read Fifth attempt to reach patient Patient referred by: [facility] Debbie Contact made with patient: No - 2nd attempt to reach patient, left another message: Hi my name is Kacie Wood RN and I am calling from the [facility] on behalf of your PCP, Luke Barger MD. We are excited to share with you a new program to help you manage your health. Please call me back at [phone] . I hope you can take the time to speak with me. (Keep encounter open for additional two business days in case patient calls back. Close encounter if no response by end of second business day) Closing: Could not reach the patient after two attempted outreaches. Vocational Trainer to retry patient in one week. 5 attempts END OUTREACH documented in this encounter [facility] 05-15-2021 Miscellaneous Notes Detailed message left on pt identified VM that he needs to make appt and get blood work done. Avis Caruso Ma OK to refill as ordered He is due for office visit and labs as ordered Luke Barger MD documented in this encounter [facility] documented as of this encounter (statuses as of 05/15/2021) [facility] History of Past illness Narrative* Problem Noted [...] of this encounter (statuses as of 06/14/2021) [facility] of [facility] Narrative* Problem Noted [...] of this encounter (statuses as of 07/12/2021) [facility] of [facility] Narrative* Problem Noted [...] of this encounter (statuses as of 08/27/2021) [facility] of [facility] Narrative* Problem Noted [...] of this encounter (statuses as of 08/28/2021) [facility] Narrative* Problem Noted [...] of this encounter (statuses as of 09/04/2021) [facility] Narrative* Problem Noted [...] of this encounter (statuses as of 09/04/2021) [facility] Narrative* Problem Noted [...] of this encounter (statuses as of 09/18/2021) [facility] Narrative* Problem Noted [...] of this encounter (statuses as of 10/05/2021) [facility] Narrative* Problem Noted [...] of this encounter (statuses as of 10/11/2021) [facility] Narrative* Problem Noted [...] of this encounter (statuses as of 10/18/2021) [place] [address]-17-2014 History of Past illness Narrative* Problem Noted [...] of this encounter (statuses as of 11/15/2021) [facility] Narrative* Problem Noted [...] of this encounter (statuses as of 11/16/2021) [facility] Narrative* Problem Noted [...] of this encounter (statuses as of 11/20/2021) [facility] Narrative* Problem Noted [...] of this encounter (statuses as of 12/02/2021) [facility] Narrative* Problem Noted [...] of this encounter (statuses as of 12/26/2021) [facility] Narrative* Problem Noted [...] of this encounter (statuses as of 01/24/2022) [facility] Narrative* Problem Noted [...] of this encounter (statuses as of 04/25/2022) [facility] Narrative* Problem Noted [...] of this encounter (statuses as of 04/25/2022) [facility] Narrative* Problem Noted [...] of this encounter (statuses as of 04/25/2022) [facility] Narrative* Problem Noted [...] of this encounter (statuses as of 05/10/2022) [facility] N[facility]ative* Problem Noted [...] of this encounter (statuses as of 05/10/2022) [facility] Narrative* Problem Noted [...] of this encounter (statuses as of 05/10/2022) [facility] Narrative* Problem Noted [...] of this encounter (statuses as of 10/07/2022) [facility] N[facility]ative* Problem Noted [...] of this encounter (statuses as of 10/15/2022) [facility] Narrative* Problem Noted [...] of this encounter (statuses as of 11/28/2022) [facility] Narrative* Problem Noted [...] of this encounter (statuses as of 12/25/2022) [facility]* Diagnosis Hypothyroidism, unspecified type- Primary Essential hypertension Unspecified essential hypertension Acquired hypothyroidism Unspecified hypothyroidism Controlled diabetes mellitus type 2 with complications, unspecified whether senior care insulin use (HCC) Mixed hyperlipidemia BPH with obstruction/lower urinary tract symptoms Hypertrophy of prostate with urinary obstruction and other lower urinary tract symptoms (LUTS) documented [facility] encounter [facility]* Diagnosis Medicare annual wellness visit, subsequent- [...] (HCC) Paralysis agitans [facility] Diagnosis Acute right-sided low back pain without sciatica- Primary Right hip pain Pain in joint, pelvic region and thigh Seborrheic keratosis Other seborrheic keratosis Difficulty sleeping Sleep disturbance, unspecified Atypical mole Benign neoplasm of skin, site unspecified [facility] Diagnosis Pigmented skin lesion of uncertain nature- Primary Atypical mole Benign neoplasm of skin, site unspecified Encounter for screening for malignant neoplasm of colon Special screening for malignant neoplasms, colon [facility] Diagnosis Skin lesion of back- Primary Unspecified disorder of skin and subcutaneous tissue [facility] Diagnosis Pre-operative examination- Primary Preoperative examination, [...] Thrombocytopenia Thrombocytopenia, unspecified [facility] Diagnosis Acute right-sided low back pain without sciatica Right hip pain Pain in joint, pelvic region and thigh [facility] Diagnosis Encounter for screening for malignant neoplasm of colon- Primary Special screening for malignant neoplasms, colon [facility] Diagnosis RLS (restless legs syndrome)- Primary Restless legs syndrome (RLS) [facility] Diagnosis Essential hypertension Unspecified essential hypertension RLS (restless legs syndrome) Restless legs syndrome (RLS) [facility] Diagnosis Fall, initial encounter- Primary Acute right-sided low back pain without sciatica [facility] Diagnosis Upper back pain- Primary Need for influenza vaccination Need for prophylactic vaccination and inoculation against influenza Wheezing [facility] Diagnosis RLS (restless legs syndrome) Restless legs syndrome (RLS) [facility]* Diagnosis Controlled type 2 diabetes mellitus with complication, without long-term current use of insulin (HCC)- Primary Dry eye syndrome of both eyes Punctate keratitis, bilateral Epiretinal membrane (ERM) of left eye Optic nerve drusen, bilateral Pseudophakia Lens replaced by other means [facility] Diagnosis Hospital discharge follow-up- Primary Other [...] Thrombocytopenia Thrombocytopenia, unspecified [facility] Diagnosis Hypothyroidism, unspecified type- Primary Essential hypertension Unspecified essential hypertension Controlled type 2 diabetes mellitus with complication, without long-term current use of insulin (HCC) Mixed hyperlipidemia Iron deficiency anemia due to chronic blood loss Iron deficiency anemia secondary to blood loss (chronic) [facility] Diagnosis Hypothyroidism, unspecified type- Primary Essential [...] chronic respiratory failure documented in this encounter [facility] for referral (narrative)* Outpatient Procedure (Routine) - Authorized Specialty Diagnoses / Procedures Referred By Contac t Referred To Contact [facility] Diagnoses Encounter for screening for malignant neoplasm of colon Procedures COLONOSCOPY DIAGNOSTIC COLONOSCOPY FLX DX W/COLLJ SPEC WHEN Geovanny Long MD [address] [place] [address] [facility] [place] [address] [address] Referral ID Status Reason Start Date Expiration Date Visits Requested Visits Authorized [id number] Authorized Auto-Generat ed Referral 09/04/2021 09/04/2022 1 1 [facility] for referral (narrative)* Outpatient Procedure (Routine) - Closed Specialty Diagnoses / Procedures Referred By Contac t Referred To Contact [facility] Diagnoses Encounter for screening for malignant neoplasm of colon Procedures COLONOSCOPY DIAGNOSTIC COLONOSCOPY FLX DX W/COLLJ SPEC WHEN Geovanny Long MD [address] [place] [address] [address] Referral ID Status Reason Start Date Expiration Date V isits Requested Visits Authorized [id number] Closed Auto-Generate d Referral 09/04/2021 09/04/2022 1 1 [facility] Outpatient Procedure (Routine) - Closed Specialty Diagnoses / Procedures Referred By [place] white Referred To Contact [facility] Diagnoses Encounter for screening for malignant neoplasm of colon Procedures COLONOSCOPY DIAGNOSTIC COLONOSCOPY FLX DX W/COLLJ SPEC WHEN [facility] Geovanny Baca MD [address] [place] [address] [facility] [place] [address] [place] [address] Referral ID Status Reason Start Date Expiration Date V isits Requested Visits Authorized [id number] Closed Auto-Generate d Referral 09/04/2021 09/04/2022 1 1 [facility] Instructions Name Dates Details Smoker : How [...] Documents on File Type Date Recorded Patient Addiction Medicine Physician Expl anation Advance Directive(s) 09/23/2008 9:59 PM Documents on File Type Date Recorded Patient Addiction Medicine Physician Expl anation Advance Directive(s) 09/23/2008 9:59 PM [...] lesion Procedures CONSULT TO DERMATOLOGY Filomena Allen APRN.K 9 HANDLER/ DEPUTY [address] [place] [address] Referral ID Status Reason Start Date Expiration Date Visits Requested Visits Authorized [id number] Ref Not Required PCP Requested Referral 07/12/2021 07/12/2022 1 1 Specialty Diagnoses / Procedures Referred By Contac t Referred To Contact General Surgery Diagnoses Seborrheic keratosis Atypical mole Procedures CONSULT TO GENERAL SURGERY OFFICE/OUTPATIENT [facility] 60-74 MINUTES Luke Barger MD [address] [place] [address] Referral ID Status Reason Start Date Expiration Date V isits Requested Visits Authorized [id number] Closed PCP Requested Referral 09/04/2021 09/04/2022 1 [...] mole Procedures CONSULT TO GENERAL SURGERY OFFICE/OUTPATIENT [facility] 60-74 MINUTES Luke Barger MD [address] [place] [address] Referral ID Status Reason Start Date Expiration Date V isits Requested Visits Authorized [id number] Closed PCP Requested Referral 09/04/2021 09/04/2022 1 [...] or prosecute any alcohol or drug abuse patient.[facility] the event this information is protected by the Federal Confidentiality of Alcohol and Drug Abuse Patient Records regulations: The Federal rules restrict any use of the information to criminally investigate or prosecute any alcohol or drug abuse patient.[facility] the event this information is protected by the Federal Confidentiality of Alcohol and Drug Abuse Patient Records regulations: The Federal rules restrict any use of the information to criminally investigate or prosecute any alcohol or drug abuse patient.[facility] the event this information is protected by the Federal Confidentiality of Alcohol and Drug Abuse Patient Records regulations: The Federal rules restrict any use of the information to criminally investigate or prosecute any alcohol or drug abuse patient.[facility] the event this information is protected by the Federal Confidentiality of Alcohol and Drug Abuse Patient Records regulations: The Federal rules restrict any use of the information to criminally investigate or prosecute any alcohol or drug abuse patient.[facility] the event this information is protected by the Federal Confidentiality of Alcohol and Drug Abuse Patient Records regulations: The Federal rules restrict any use of the information to criminally investigate or prosecute any alcohol or drug abuse patient.[facility] the event this information is protected by the Federal Confidentiality of Alcohol and Drug Abuse Patient Records regulations: The Federal rules restrict any use of the information to criminally investigate or prosecute any alcohol or drug abuse patient.[facility] the event this information is protected by the Federal Confidentiality of Alcohol and Drug Abuse Patient Records regulations: The Federal rules restrict any use of the information to criminally investigate or prosecute any alcohol or drug abuse patient.[facility] the event this information is protected by the Federal Confidentiality of Alcohol and Drug Abuse Patient Records regulations: The Federal rules restrict any use of the information to criminally investigate or prosecute any alcohol or drug abuse patient.[facility] Hospital[facility] the event this information is protected by the Federal Confidentiality of Alcohol and Drug Abuse Patient Records regulations: The Federal rules restrict any use of the information to criminally investigate or prosecute any alcohol or drug abuse patient.[facility] the event this information is protected by the Federal Confidentiality of Alcohol and Drug Abuse Patient Records regulations: The Federal rules restrict any use of the information to criminally investigate or prosecute any alcohol or drug abuse patient.[facility] Hospital[facility] the event this information is protected by the Federal Confidentiality of Alcohol and Drug Abuse Patient Records regulations: The Federal rules restrict any use of the information to criminally investigate or prosecute any alcohol or drug abuse patient.[facility] Hospital[facility] the event this information is protected by the Federal Confidentiality of Alcohol and Drug Abuse Patient Records regulations: The Federal rules restrict any use of the information to criminally investigate or prosecute any alcohol or drug abuse patient.[facility] HospitalIn the event this information is protected by the Federal Confidentiality of Alcohol and Drug Abuse Patient Records regulations: The Federal rules restrict any use of the information to criminally investigate or prosecute any alcohol or drug abuse patient.[facility] HospitalIn the event this information is protected by the Federal Confidentiality of Alcohol and Drug Abuse Patient Records regulations: The Federal rules restrict any use of the information to criminally investigate or prosecute any alcohol or drug abuse patient.[facility] HospitalIn the event this information is protected by the Federal Confidentiality of Alcohol and Drug Abuse Patient Records regulations: The Federal rules restrict any use of the information to criminally investigate or prosecute any alcohol or drug abuse patient.[facility] HospitalIn the event this information is protected by the Federal Confidentiality of Alcohol and Drug Abuse Patient Records regulations: The Federal rules restrict any use of the information to criminally investigate or prosecute any alcohol or drug abuse patient.[facility] HospitalIn the event this information is protected by the Federal Confidentiality of Alcohol and Drug Abuse Patient Records regulations: The Federal rules restrict any use of the information to criminally investigate or prosecute any alcohol or drug abuse patient.[facility] HospitalIn the event this information is protected by the Federal Confidentiality of Alcohol and Drug Abuse Patient Records regulations: The Federal rules restrict any use of the information to criminally investigate or prosecute any alcohol or drug abuse patient.[facility] the event this information is protected by the Federal Confidentiality of Alcohol and Drug Abuse Patient Records regulations: The Federal rules restrict any use of the information to criminally investigate or prosecute any alcohol or drug abuse patient.[facility] HospitalIn the event this information is protected by the Federal Confidentiality of Alcohol and Drug Abuse Patient Records regulations: The Federal rules restrict any use of the information to criminally investigate or prosecute any alcohol or drug abuse patient.[facility] HospitalIn the event this information is protected by the Federal Confidentiality of Alcohol and Drug Abuse Patient Records regulations: The Federal rules restrict any use of the information to criminally investigate or prosecute any alcohol or drug abuse patient.[facility] HospitalIn the event this information is protected by the Federal Confidentiality of Alcohol and Drug Abuse Patient Records regulations: The Federal rules restrict any use of the information to criminally investigate or prosecute any alcohol or drug abuse patient.[facility] HospitalIn the event this information is protected by the Federal Confidentiality of Alcohol and Drug Abuse Patient Records regulations: The Federal rules restrict any use of the information to criminally investigate or prosecute any alcohol or drug abuse patient.[facility] HospitalIn the event this information is protected by the Federal Confidentiality of Alcohol and Drug Abuse Patient Records regulations: The Federal rules restrict any use of the information to criminally investigate or prosecute any alcohol or drug abuse patient.[facility] HospitalIn the event this information is protected by the Federal Confidentiality of Alcohol and Drug Abuse Patient Records regulations: The Federal rules restrict any use of the information to criminally investigate or prosecute any alcohol or drug abuse patient.[facility] HospitalIn the event this information is protected by the Federal Confidentiality of Alcohol and Drug Abuse Patient Records regulations: The Federal rules restrict any use of the information to criminally investigate or prosecute any alcohol or drug abuse patient.[facility] Care Teams (unrecognized sec tion and content) Packaging Inspector Relationship Specialty Start Date End Date Luke Barger MD [address] [place] [address] PCP - General Family Practice 05/22/18 Packaging Inspector Relationship Specialty Start Date End Date Luke Barger MD [facility] [place] [address] PCP - General Family Practice 05/22/18 Packaging Inspector Relationship Specialty Start Date End Date Luke Barger MD [address] [place] [address] PCP - General Family Practice 05/22/18 Packaging Inspector Relationship Specialty Start Date End Date Luke Barger MD [facility] [place] [address] PCP - General Family Practice 05/22/18 Packaging Inspector Relationship Specialty Start Date End Date Luke Barger MD [address] [place] [address] PCP - General Family Practice 05/22/18 Packaging Inspector Relationship Specialty Start Date End Date Luke Barger MD [address] [place] [address] [place] [address] PCP - General Family Practice 05/22/18 Packaging Inspector Relationship Specialty Start Date End Date Luke Barger MD [address] [facility] [place] [address] PCP - General Family Practice 05/22/18 Packaging Inspector Relationship Specialty Start Date End Date Luke Barger MD [address] [facility] [place] [address] PCP - General Family Practice 05/22/18 Packaging Inspector Relationship Specialty Start Date End Date Luke Barger MD [address] [facility] [place] [address] PCP - General Family Practice 05/22/18 Packaging Inspector Relationship Specialty Start Date End Date Luke Barger MD [address] [facility] [place] [address] PCP - General Family Medicine 05/22/18 Packaging Inspector Relationship Specialty Start Date End Date Luke Barger MD [address] [facility] [place] [address] PCP - General Family Medicine 05/22/18 Packaging Inspector Relationship Specialty Start Date End Date Luke Barger MD [address] [facility] [place] [address] PCP - General Family Medicine 05/22/18 Packaging Inspector Relationship Specialty Start Date End Date Luke Barger MD [address] [facility] [place] [address] PCP - General Family Medicine 05/22/18 Packaging Inspector Relationship Specialty Start Date End Date Luke Barger MD [address] [facility] [place] [address] PCP - General Family Medicine 05/22/18 Packaging Inspector Relationship Specialty Start Date End Date Luke Barger MD [address] [facility] [place] [address] PCP - General Family Medicine 05/22/18 Packaging Inspector Relationship Specialty Start Date End Date Luke Barger MD [address] [facility] [place] [address] PCP - General Family Medicine 05/22/18 Packaging Inspector Relationship Specialty Start Date End Date Luke Barger MD [address] [facility] [place] [address] PCP - General Family Medicine 05/22/18 Packaging Inspector Relationship Specialty Start Date End Date Luke Barger MD [address] [facility] [place] [address] PCP - General Family Medicine 05/22/18 Packaging Inspector Relationship Specialty Start Date End Date Luke Barger MD [address] [facility] [place] [address] PCP - General Family Medicine 05/22/18 Packaging Inspector Relationship Specialty Start Date End Date Luke Barger MD [address] [facility] [place] [address] PCP - General Family Medicine 05/22/18 Packaging Inspector Relationship Specialty Start Date End Date Luke Barger MD [address] [facility] [place] [address] PCP - General Family Medicine 05/22/18 (unrecognized sect ion and content) No Status Records FoundNo Status Records Found INFORMATION SOURCE (unrecogn ized section and content) DATE CREATED AUTHOR AUTHOR'S ORGANIZ ATION 12/26/2022 [facility] FOR RECORDS PERTAINING TO PATIENTS WHO ARE [...] BE BASED ON THE PRIMARY CLINICAL RECORDS. [facility] [employer] [facility]. provides no warranty or guarantee of the accuracy or completeness of information in this document.
[2023-02-28 10:02] VITALS: BP 129/63; PULSE 83; RESP 18; O2SAT 100
[2023-02-28 10:21] VITALS: BP 129/62; PULSE 87; RESP 18; O2SAT 97
--- NOTE | 2023-02-28 11:00 | CASEMGMT ---
Addendum entered and electronically signed by Ermelinda Lester RN 02/28/23 19:15: Call placed to pt's daughter Maryanne to discuss issues noted below. Nonidentifying voicemail received and message left without patient information requesting a return call. Confirmed pt is scheduled to see Dr. Mathews next on 06/24/23 at 1330. Aleta Lester RN [facility] Original Note: anode builder: This RN CM met with pt following paracentesis patient. Pt ambulated from his scooter to a chair within the [facility]. Noted pt held onto objects when doing so. Pt alert, answering questions appropriately, and able to recall some parts of the conversations he had with Yaquelin Bright and Dr. Mathews. Feedback from DrStefani appointments: Pt states Dr. Bright had told him he was going to within a year and states Dr. Mathews yelled at him and also said he would not be a candidate for liver transplant. Pt states he does recall the request by Dr. Mathews to bring his daughter to his next appointment. Pt believes she will be able to attend and recalled that this appointment is in June. In response to the prognosis given by Dr. Bright, pt states no one knows when they are going to and that this can be tomorrow or in 10 years, whenever my name comes up in the book that will be his time. Living Situation/ADL's: Pt states he continues to be able to perform his own ADLs at home and states he sometimes stands in the shower for 15 minutes as the warm water feels good on his back. Pt states he does wear depends and has occasional issues with inability to get to the toilet in time to have a BM. Pt states his daughter is capable of performing housework but he has to ask/encourage her to help. Pt states he needs assistance with outdoor home tasks and has been in contact with [facility] [employer] to request assistance but states he has been denied. Pt states he does have a barrel roller he can use to clear access to enable him to attend appointments. States he feels he can use this since he would have something to hold on to and also hesitantly agreed his daughter should be able to use this also. Cautioned pt that he would be at risk of falling if he were to use the snowblower. Pt states his daughter does still live with him and she continues to work wagon drill operator and sleeps during the day. Pt states he is a hoarder and recently moved his bed to the living room so he could put his things in his bedroom. Meals: Pt states he primarily eats microwavable meals. States his daughter has never learned to cook and she also primarily eats microwavable meals. Pt states he does not watch his salt and was able to recall being told by Dr. Mathews to eat a low salt diet. Pt states he does like the meals when he gets his albumin infusions and states they usually just need to warm them up some for him. Pt did not express any concerns with not having access to food. Medication: Pt states he picked up the lasix and protonix prescibed by Dr. Mathews. Pt states he did not accept the laxative and had [facility] take it back. Pt states he does not want to take it due to already having issues with getting to the bathroom and concerns that he will have challenges with incontinence care. This RN CM explained to pt the rationale for taking the lactulose and how it works to help keep his mind clear. Pt expressed some understanding. Encouraged pt to try taking the lactulose until having loose stools and to work with Dr. Mathews on the best dose. Pt states he had a bottle of lactulose in his refrigerator from when he returned from [facility] after a stay last February. Instructed pt to discard this medicine as it is a year old and to get the new from [facility]. Pt expressed understanding. Pt states he has not started the lasix or protonix that he picked up from [facility] but states he will start them today when he gets home. Home O2: Noted pt did not have his home O2 on or with him on this date. Pt states he wears it at home when he is sitting but not when he is up and around or when he leaves the house. Transportation: Pt continues to drive and has a lift on his car to carry his electric scooter which he rode into the facility today. LW/HPOA: Pt states he does have these documents and that he has copies of them at his home. Requested that pt bring them to the hospital at his next visit so they can be scanned into his medical record. Pt did provide this RN CM permission to contact his daughter to further discuss any needs in the home but requested she be called after 1630. Assistance: Pt states the only assistance he needs is with housework which he states his daughter can assist him with if he can get her to help. Pt denied wanting a home health nurse to visit and assist him in the home nor was he interested in the [facility] program. Will follow-up with pt's daughter re: medication compliance, diet restriction, and home needs. Aleta Lester RN AC
--- NOTE | 2023-02-28 11:31 | PCM.OP.PRO ---
Procedure Report Date of Procedure: 02/28/23 Assessment & Plan Assessment/Plan (1) Ascites: QUALIFIERS: Ascites type: other type Qualified Code(s): R18.8 - Other ascites PLAN: PROCEDURE: Ultrasound guided paracentesis ORDERING PROVIDER: Dr. Bright INDICATION: Male, 77 years old. Ascites. PROVIDER: IVANA Hidalgo TECHNIQUE: The risks, benefits, and alternatives to the procedure were explained to the patient. The specific risks of bleeding, infection, and damage to bowel were detailed and accepted. Witnessed informed consent was obtained. The abdomen was ultrasonographically surveyed. An appropriate pocket of fluid was identified in the right lower quadrant. The skin was prepped with chlorhexidine and sterile field established. 2% lidocaine was used for local anesthetic. Using ultrasound guidance, the peritoneal cavity was accessed with a 5-[place] paracentesis needle/catheter system. The trocar was removed. A total of 4050 ml of clear yellow colored fluid was removed from the peritoneal cavity. The catheter was removed and a sterile dressing was applied. The procedure was well tolerated. IMPRESSION: Successful ultrasound-guided paracentesis with right lower quadrant access site. Procedures Radiology Radiology US Procedures: [id number] Paracentesis
== END | disposition home or self-care (01) ==
PROVIDERS: PCP Family Medicine Geriatric Medicine; Referring Provider Family Medicine Geriatric Medicine; Visit Provider Family Medicine Geriatric Medicine
DX: K74.60 Unspecified cirrhosis of liver (principal)
CPT/HCPCS: 49083

== ENCOUNTER → 2023-03-04 | Outpatient (CLI) | payer MEDICARE, OTHER, SELFPAY ==
--- NOTE | 2023-03-04 07:26 | CT_ITS ---
STUDY: CT ABDOMEN AND PELVIS WITH AND WITHOUT CONTRAST REASON FOR EXAM: Male, 77 years old. cirrhosis, HCC screening -- TRIPLE phase, HCC protocol, after Cr RADIATION DOSAGE (If Supplied By Facility): CTDIvol = ( 21.96 ) mGy, DLP = ( 3301.07 ) mGycm TECHNIQUE: Transaxial images were obtained from the dome of the diaphragm to the symphysis pubis without oral contrast. ml of 100mL Isovue-300 contrast was administered. Sagittal and coronal images were reconstructed. Individualized dose optimization techniques were used for this CT. COMPARISON: None. FINDINGS: The visualized lung bases are unremarkable. Shrunken cirrhotic liver without evidence of a mass or ductal dilatation. A large amount of abdominal and pelvic ascites is present. Contracted gallbladder which is otherwise unremarkable. No peritoneal or omental masses or lymphadenopathy is present. No demonstrated portal vein thrombosis or cavernous transformation. The portal splenic and mesenteric veins are fully patent and normally contrast-enhanced. Portal vein hypertension is present with multiple venous varices. No demonstrated splenomegaly. No small bowel obstruction. No abscess is present. No free air is seen. There are multiple benign calcified granulomata of the spleen. Normal pancreas. Normal bilateral adrenal glands. Normal right kidney. Normal left kidney. Normal visualized stomach. Normal small intestine. There are multiple colonic diverticula consistent with diverticulosis. There is non-visualization of the appendix. There is diffuse atherosclerotic calcification of the abdominal aorta, without a demonstrated aneurysm. Normal inferior vena cava. Normal retroperitoneum. Normal urinary bladder. Normal abdominal wall. There are diffuse degenerative changes of the visualized lumbar spine. CT/CT Abd/Pelvis W/WO Contrast IMPRESSION: 1. Shrunken cirrhotic liver without evidence of a mass or ductal dilatation. A large amount of abdominal and pelvic ascites is present. Contracted gallbladder which is otherwise unremarkable. No peritoneal or omental masses or lymphadenopathy is present. No demonstrated portal vein thrombosis or cavernous transformation. The portal splenic and mesenteric veins are fully patent and normally contrast-enhanced. Portal vein hypertension is present with multiple venous varices. No demonstrated splenomegaly. No small bowel obstruction. No abscess is present. No free air is seen. Electronically Signed: Nahum Godoy MD at 11:51 EST ,
--- OUTSIDE RECORDS SUMMARY | 2023-03-04 07:33 | XMS RPT_ITS | CCD ---
Author Name Unknown Address [id number] [place] [address] Organization [facility] Care Team Providers Care Folder Taper Operator Name Role Phone SaranyaRadha blanco E Unavailable Ming Garrido Unavailable [facility] Unavailable Bebeto Marrufo Unavailable [phone] Ryan Shine Unavailable Matheus Mills Unavailable [phone] Darrian Martin Unavailable [phone] Mansi Sanabria Unavailable Darrian Martin Unavailable [phone] Eboni Cisse Unavailable Martinez Srinivasan Unavailable Deana Moreland Unavailable Unavailable Kerri Ferreira Unavailable Unavailable Anastasiia Norwood Unavailable Unavailable Unavailable Unavailable Greyson Vazquez MD Unavailable [phone] Luke Barger MD Primary Care Provider Luke [...] Translations: [ALOE VERA] Drug Allergy 02-24-2014 Rash [facility] (20 sources) Diclofenac; Translations: [DICLOFENAC] Drug Allergy 02-28-2011 Intolerance [facility] Medications Current Medications Medication Drug Class(es) Dates Sig (Normalized) Sig (Original) [id number] 200 actuat albuterol 0.09 mg/actuat metered dose [...] 88.91 kg Luke Barger MD Work Phone: [facility] 10-14-2022 18:04-0400 Diastolic blood pressure 80 mm[Hg] Luke Barger MD Work Phone: [facility] 10-14-2022 18:04-0400 Heart rate 72 /min Luke Barger MD Work Phone: [facility] 10-14-2022 18:04-0400 Respiratory rate 18 /min Luke Barger MD Work Phone: [facility] 10-14-2022 18:04-0400 Systolic blood pressure 130 mm[Hg] Luke Barger MD Work Phone: [facility] 05-09-2022 10:11-0400 Body weight 85.19 kg Luke Barger MD Work Phone: [facility] 05-09-2022 10:11-0400 Diastolic blood pressure 64 mm[Hg] Luke Barger MD Work Phone: [facility] 05-09-2022 10:11-0400 Heart rate 76 /min Luke Barger MD Work Phone: [facility] 05-09-2022 10:11-0400 Respiratory rate 20 /min Luke Barger MD Work Phone: [facility] 05-09-2022 10:11-0400 SaO2% (BldA) [Mass fraction] 99 % Luke Barger MD Work Phone: [facility] 05-09-2022 10:11-0400 Systolic blood pressure 130 mm[Hg] Luke Barger MD Work Phone: [facility] 01-24-2022 08:07-0500 Body temperature 98.2 [degF] Luke Barger MD Work Phone: [facility] 01-24-2022 08:07-0500 Body weight 105.69 kg Luke Barger MD Work Phone: [facility] 01-24-2022 08:07-0500 Diastolic blood pressure 90 mm[Hg] Luke Barger MD Work Phone: [facility] 01-24-2022 08:07-0500 Heart rate 78 /min Luke Barger MD Work Phone: [facility] 01-24-2022 08:07-0500 Respiratory rate 20 /min Luke Barger MD Work Phone: [facility] 01-24-2022 08:07-0500 SaO2% (BldA) [Mass fraction] 94 % Luke Barger MD Work Phone: [facility] 01-24-2022 08:07-0500 Systolic blood pressure 150 mm[Hg] Luke Barger MD Work Phone: [facility] 12-02-2021 12:17-0400 Body temperature 97.59 [degF] Felicita Celsa WINDOW CLERK.ASSISTANT EDUCATION DIRECTOR Work Phone: [facility] 12-02-2021 12:17-0400 Body weight 99.79 kg Felicita Celsa WINDOW CLERK.ASSISTANT EDUCATION DIRECTOR Work Phone: [facility] 12-02-2021 12:17-0400 Diastolic blood pressure 76 mm[Hg] Felicita Celsa WINDOW CLERK.ASSISTANT EDUCATION DIRECTOR Work Phone: [facility] 12-02-2021 12:17-0400 Heart rate 94 /min Felicita Celsa WINDOW CLERK.ASSISTANT EDUCATION DIRECTOR Work Phone: [facility] 12-02-2021 12:17-0400 Respiratory rate 21 /min Felicita Celsa WINDOW CLERK.ASSISTANT EDUCATION DIRECTOR Work Phone: [facility] 12-02-2021 12:17-0400 SaO2% (BldA) [Mass fraction] 95 % Felicita Celsa WINDOW CLERK.ASSISTANT EDUCATION DIRECTOR Work Phone: [facility] 12-02-2021 12:17-0400 Systolic blood pressure 182 mm[Hg] Felicita Celsa WINDOW CLERK.ASSISTANT EDUCATION DIRECTOR Work Phone: [facility] 11-15-2021 18:44-0400 Body temperature 97.2 [degF] Carmen Praisler-Wood WINDOW CLERK.ASSISTANT EDUCATION DIRECTOR Work Phone: [facility] 11-15-2021 18:44-0400 Body weight 96.07 kg Carmen Praisler-Wood WINDOW CLERK.ASSISTANT EDUCATION DIRECTOR Work Phone: [facility] 11-15-2021 18:44-0400 Diastolic blood pressure 78 mm[Hg] Carmen Praisler-Wood WINDOW CLERK.ASSISTANT EDUCATION DIRECTOR Work Phone: [facility] 11-15-2021 18:44-0400 Heart rate 79 /min Carmen Praisler-Wood WINDOW CLERK.ASSISTANT EDUCATION DIRECTOR Work Phone: [facility] 11-15-2021 18:44-0400 Respiratory rate 18 /min Carmen Praisler-Wood WINDOW CLERK.ASSISTANT EDUCATION DIRECTOR Work Phone: [facility] 11-15-2021 18:44-0400 SaO2% (BldA) [Mass fraction] 97 % Carmen Praisler-Wood WINDOW CLERK.ASSISTANT EDUCATION DIRECTOR Work Phone: [facility] 11-15-2021 18:44-0400 Systolic blood pressure 156 mm[Hg] Carmen Praisler-Wood WINDOW CLERK.ASSISTANT EDUCATION DIRECTOR Work Phone: [facility] 10-17-2021 09:59-0400 Diastolic blood pressure 71 mm[Hg] Geovanny Baca MD Work Phone: [facility] 10-17-2021 09:59-0400 Heart rate 65 /min Geovanny Baca MD Work Phone: [facility] 10-17-2021 09:59-0400 Respiratory rate 28 /min Geovanny Baca MD Work Phone: [facility] 10-17-2021 09:59-0400 SaO2% (BldA) [Mass fraction] 99 % Geovanny Baca MD Work Phone: [facility] 10-17-2021 09:59-0400 Systolic blood pressure 166 mm[Hg] Geovanny Baca MD Work Phone: [facility] 10-17-2021 09:45-0400 Body temperature 98.6 [degF] Geovanny Baca MD Work Phone: [facility] 10-05-2021 08:45-0400 Body height 166.4 cm Pacc 1 Work Phone: [facility] 10-05-2021 08:45-0400 Body temperature 97 [degF] Pacc 1 Work Phone: [facility] 10-05-2021 08:45-0400 Body weight 97.52 kg Pacc 1 Work Phone: [facility] 10-05-2021 08:45-0400 Diastolic blood pressure 68 mm[Hg] Pacc 1 Work Phone: [facility] 10-05-2021 08:45-0400 Heart rate 67 /min Pacc 1 Work Phone: [facility] 10-05-2021 08:45-0400 Respiratory rate 16 /min Pacc 1 Work Phone: [facility] 10-05-2021 08:45-0400 SaO2% (BldA) [Mass fraction] 93 % Pacc 1 Work Phone: [facility] 10-05-2021 08:45-0400 Systolic blood pressure 134 mm[Hg] Pacc 1 Work Phone: [facility] 09-04-2021 13:16-0400 Body height 167.6 cm Geovanny Baca MD Work Phone: [facility] 07-19-2022 13:16-0400 Body temperature 97 [degF] Geovanny Baca MD Work Phone: [facility] 09-04-2021 13:16-0400 Body weight 96.62 kg Geovanny Baca MD Work Phone: [facility] 09-04-2021 13:16-0400 Diastolic blood pressure 62 mm[Hg] Geovanny Baca MD Work Phone: [facility] 09-04-2021 13:16-0400 Heart rate 99 /min Goevanny Baca MD Work Phone: [facility] 09-04-2021 13:16-0400 SaO2% (BldA) [Mass fraction] 93 % Geovanny Baca MD Work Phone: [facility] 09-04-2021 13:16-0400 Systolic blood pressure 156 mm[Hg] Geovanny Baca MD Work Phone: [facility] 09-04-2021 08:43-0400 Body weight 97.52 kg Luke Barger MD Work Phone: [facility] 09-04-2021 08:43-0400 Diastolic blood pressure 74 mm[Hg] uLke Barger MD Work Phone: [facility] 09-04-2021 08:43-0400 Heart rate 62 /min Luke Barger MD Work Phone: [facility] 09-04-2021 08:43-0400 Respiratory rate 16 /min Luke Barger MD Work Phone: [facility] 09-04-2021 08:43-0400 Systolic blood pressure 138 mm[Hg] Luke Barger MD Work Phone: [facility] 07-12-2021 14:22-0400 Body height 169 cm Filomena Allen WINDOW CLERK.ASSISTANT EDUCATION DIRECTOR Work Phone: [facility] 07-12-2021 14:22-0400 Body weight 102.06 kg Filomena Allen WINDOW CLERK.ASSISTANT EDUCATION DIRECTOR Work Phone: [facility] 07-12-2021 14:22-0400 Diastolic blood pressure 70 mm[Hg] Filomena Allen WINDOW CLERK.ASSISTANT EDUCATION DIRECTOR Work Phone: [facility] 07-12-2021 14:22-0400 Heart rate 65 /min Filomenajuventino Allen WINDOW CLERK.ASSISTANT EDUCATION DIRECTOR Work Phone: [facility] 07-12-2021 14:22-0400 Respiratory rate 16 /min Filomenajuventino Allen WINDOW CLERK.ASSISTANT EDUCATION DIRECTOR Work Phone: [facility] 07-12-2021 14:22-0400 SaO2% (BldA) [Mass fraction] 95 % Filomena Tiffany WINDOW CLERK.ASSISTANT EDUCATION DIRECTOR Work Phone: [facility] 07-12-2021 14:22-0400 Systolic blood pressure 160 mm[Hg] Filomenajuventino Allen WINDOW CLERK.ASSISTANT EDUCATION DIRECTOR Work Phone: [facility] 01-13-2018 13:06-0500 BMI (Body Mass Index) 35.7 kg/m2 [facility] Work Phone: 01-13-2018 13:06-0500 Body Temperature 98.7 [degF] [facility] Work Phone: Encounters Encounter [...] cleared fda spec home use Richard Agee WINDOW CLERK.AERIAL ERECTOR Work Phone: Start: 10-17-2021 Colonoscopy Carmen Rock WINDOW CLERK.ASSISTANT EDUCATION DIRECTOR Work Phone: Start: 07-12-2021 Adult depression screening assessment Filomena Allen WINDOW CLERK.ASSISTANT EDUCATION DIRECTOR Work Phone: Start: 07-21-2019 End: 07-21-2019 Blood [...] 05-22-2018 Adult depression screening assessment Adolfo Ryder WINDOW CLERK.ASSISTANT EDUCATION DIRECTOR Work Phone: Start: 01-09-2018 End: 01-09-2018 Emergency Department Summary Comments: See Note; NOTES: [facility] Medical Records Department [address] [place] [address] Emergency Department Summary 01/09/18 0645 MR#: [id number] Acct: [id number] Name: RICHARD VARGAS Rep #: [id number] : 1945 72 From: Ermelinda Deng MD [...] Parkinson's disease This note was generated with Streamline dictation software. It may contain incorrect words, spelling, and punctuation that were not noted in review of the chart prior to signing ED Disposition - Plan for ED Patient: Chief Complaint: Syncope Referrals: Radha Torres, [facility] [Primary Care Provider] - What to do if you have Problems For any increased pain, shortness of breath, bleeding, nausea or vomiting, chest pain, or any unexpected problems, contact your Primary Care Provider. Call [facility] ([phone]) or report to the closest Emergency Room. Call 911 if necessary. 01/09/18 0753 <Electronically signed by Ermelinda Deng MD> Date Ermelinda Deng MD Cosigner Signature (If Indicated): Date CC: Radha Torres Start: 01-09-2018 End: 01-09-2018 Brain/Head without Contrast Comments: See Note; NOTES: [facility] Imaging Services [address] [place] [address] Brain/Head without Contrast MR#: [id number] Acct: [id number] Name: RICHARD VARGAS Rep #: [id number] : 1945 M 72 From: James Faustin MD PCP: Radha Torres NP Status: REG ER Study: Brain/Head without Contrast Date of Exam: 01/09/18 Exam# [id number] Ordering Dr: Ermelinda Deng MD STUDY: CT [...] CC: Radha Torres NP; Ermelinda Deng MD Property Valuer: Signed Radha Torres Start: 01-09-2018 End: 01-09-2018 Chest 1 View Comments: See Note; NOTES: [facility] Imaging Services [address] [place] [address] Chest 1 View MR#: [id number] Acct: [id number] Name: RICHARD VAGRAS Rep #: [id number] : 1945 M 72 From: James Faustin MD PCP: Radha Torres NP Status: REG ER Study: Chest 1 View Date of Exam: 01/09/18 Exam# [id number] Ordering Dr: Ermelinda Deng MD STUDY: X-RAY [...] CC: Radha Torres NP; Ermelinda Deng MD Property Valuer: Signed Radha Torres Start: 02-26-2017 End: 02-26-2017 Chest WITH Contrast Comments: See Note; NOTES: [facility] Imaging Services [address] [place] [address] Chest WITH Contrast MR#: [id number] Acct: [id number] Name: RICHARD VARGAS Rep #: [id number] : 1945 M 71 From: Amadeo Dc MD PCP: Cindy Maria DO Status: REG CLI Study: Chest WITH Contrast Date of Exam: 02/26/17 Exam# [id number] Ordering Dr: Cindy Maria DO STUDY: CT [...] spleen. Although not fully included in the [id number], spleen appears upper limits of normal size. [...] Service support , CC: Cindy Maria DO Property Valuer: Signed Cindy Maria Work Phone: Start: 02-27-2016 End: 02-27-2016 Emergency Department Summary Comments: See Note; NOTES: [facility] Medical Records Department [address] [place] [address] Emergency Department Summary MR#: [id number] Acct: [id number] Name: RICHARD VARGAS Rep #: [id number] : 1945 70 From: Richard Miranda MD PCP: Piyush Sanabria Status: [facility] ER DATE OF SERVICE: 02/27/2016 CHIEF COMPLAINT: [...] foot laceration with repair. DISPOSITION: Discharge. Richard iMranda MD T: NTS JOB: [id number] 02/27/16 033 <Electronically signed by Richard Miranda MD> Date Richard Miranda MD Cosigner Signature (If Indicated): Date CC: Piyush Sanabria Date Dictated: 02/27/16150 Date Transcribed: 02/27/16150 Property Valuer: Corey Torres Start: 02-27-2016 End: 02-27-2016 Discharge Instruction Comments: See Note; NOTES: [facility] Medical Records Department [address] [place] [address] Discharge Instruction 02/27/16 0149 MR#: [id number] Acct: [id number] Name: SOHANRICHARD Rep #: [id number] : 1945 70 From: Richard Miranda MD [...] your Primary Care Provider. Call [facility] ([phone]) or report to the closest Emergency Room. Call 911 if necessary. 02/27/16 0154 <Electronically signed by Richard Miranda MD> Date Richard Ruth MD Cosigner Signature (If Indicated): Date CC: Piyush Torres Start: 11-30-2015 Biopsy of bone marrow Radha Torres Plan of Treatment Date Care Activity Detail Author Start: 07-19-2029 Urine microalbumin profile [facility] Start: 10-17-2026 Colonoscopy COLONOSCOPY [facility] Start: 10-17-2026 COLORECTAL CANCER SCREENING COLORECTAL CANCER SCREENING [facility] Start: 10-15-2023 ANNUAL PCP TEAM CHRONIC DISEASE VISIT ANNUAL PCP TEAM CHRONIC DISEASE VISIT [facility] Start: 05-14-2023 Hemoglobin A1c/Hemoglobin.total in Blood HbA1C [facility] Start: 05-10-2023 ANNUAL PCP TEAM CHRONIC DISEASE VISIT ANNUAL PCP TEAM CHRONIC DISEASE VISIT [facility] Start: 04-26-2023 Hepatitis C antibody, confirmatory test DILATED RETINAL EXAM [facility] Start: 01-24-2023 ANNUAL PCP TEAM CHRONIC DISEASE VISIT ANNUAL PCP TEAM CHRONIC DISEASE VISIT [facility] Start: 11-09-2022 Hemoglobin A1c/Hemoglobin.total in Blood HBA1C [facility] Start: 10-18-2022 Influenza vaccination [facility] Start: 10-14-2022 End: 12-14-2022 CBC panel - Blood by Automated count CBC Lab Routine Essential hypertension Expected: 10/14/2022 (Approximate), Expires: 12/14/2022 [facility] Work Phone: Immunizations Immunization Date Immunization Notes Care Provider Georgina keller 01-24-2022 influenza, high-dose , quadrivalent vaccine (FLUZONE HIGH DOSE QUADRIVALENT) Luke Barger MD Work Phone: [facility] 01-24-2022 influenza virus vaccine, unspecified formulation Filomena Allen WINDOW CLERK.ASSISTANT EDUCATION DIRECTOR Work Phone: [facility] 11-19-2019 influenza, high-dose , quadrivalent vaccine (FLUZONE HIGH DOSE QUADRIVALENT) Adolfo Ryder APRN.ASSISTANT EDUCATION DIRECTOR Work Phone: [facility] 07-20-2019 tetanus toxoid, reduced diphtheria toxoid, and acellular pertussis vaccine, adsorbed Adolfo Caldwellil WINDOW CLERK.ASSISTANT EDUCATION DIRECTOR Work Phone: [facility] Work Phone: 11-06-2018 influenza, high dose seasonal, preservative-free Adolfo Rosalio WINDOW CLERK.ASSISTANT EDUCATION DIRECTOR Work Phone: [facility] 02-18-2016 tetanus and diphther ia toxoids, adsorbed, preservative free, for adult use (2 Lf of tetanus toxoid and 2 Lf of diphtheria toxoid) [facility] Work Phone: 04-13-2015 pneumococcal conjuga te vaccine, 13 valent Adolfo Rosalio WINDOW CLERK.ASSISTANT EDUCATION DIRECTOR Work Phone: [facility] Work Phone: 12-20-2014 influenza, high dose seasonal, preservative-free Adolfo Rosalio WINDOW CLERK.ASSISTANT EDUCATION DIRECTOR Work Phone: [facility] 02-17-2014 influenza, seasonal, injectable [facility] Work Phone: 11-01-2013 influenza, seasonal, injectable Adolfo Rosalio WINDOW CLERK.ASSISTANT EDUCATION DIRECTOR Work Phone: [facility] 11-01-2013 zoster vaccine, live Adolfo C ecil WINDOW CLERK.ASSISTANT EDUCATION DIRECTOR Work Phone: [facility] 11-04-2012 influenza virus vaccine, unspecified formulation Adolfo Rosalio WINDOW CLERK.ASSISTANT EDUCATION DIRECTOR Work Phone: [facility] 02-15-2009 pneumococcal polysaccharide vaccine, 23 valent Adolfo Rosalio WINDOW CLERK.ASSISTANT EDUCATION DIRECTOR Work Phone: [facility] 12-16-2008 influenza virus vaccine, unspecified formulation Adolfo Rosalio WINDOW CLERK.ASSISTANT EDUCATION DIRECTOR Work Phone: [facility] Work Phone: 12-23-2007 influenza virus vaccine, unspecified formulation Adolfo Rosalio WINDOW CLERK.ASSISTANT EDUCATION DIRECTOR Work Phone: [facility] Work Phone: 11-21-2005 tetanus toxoid, reduced diphtheria toxoid, and acellular pertussis vaccine, adsorbed Adolfo Rosalio WINDOW CLERK.ASSISTANT EDUCATION DIRECTOR Work Phone: [facility] Work Phone: Payers Date Payer Category Payer Medicare MEDICARE MEDICAR E A AND B [id number] 2008-Present [phone] [place] [address] Medicare [id number] 2008 Medicare MEDICARE MEDICAR E A AND B [id number] 2008-Present [phone] [place] [address] Medicare [id number] 2008 Medicare [id number] 2005 Private Health Insurance [employer] PPO [id number] 2005-Present [phone] [address] [place] [address] PPO [id number] 2005 Private Health Insurance CIGDALILA LERNERA PPO [id number] 2005-Present [phone] [address] [place] [address] PPO [id number] 2005 Private Health Insurance [id number] Unknown Social History Date Type Detail Facility Start: 05-09-2022 End: 10-10-2022 Alcohol Use Former smoker [facility] Work Phone: Clinical Notes 06-03-2013 [...] Lucretia Arriaza Ma documented in this encounter [facility] 11-27-2022 Miscellaneous Notes TC to Pt on moving appt to an earlier time on 12/09/22. Pt declined due to transportation problems. Pt also stated being in [facility] ER and had fluid drained from abdomin. Offered to move appt up to this week or next. Pt declined, stating He will keep the appt that is scheduled. Luz Sykes LPN documented in this encounter [facility] 10-14-2022 Note HNO ID: [id number] Author: Luke Barger MD Service: ? Author [...] been taking. Pt here today for a [facility] ED follow up. Pt was started on Lasix 40 mg daily on 10/07/22 due to having issues with urine retention. He still has swelling in his feet and ankles. It does not improve over night. He states he was having some pain in the legs, took some Tylenol which helped. He was in [place] from Feb to Fe after having heart attack. His daughter lives with him. Depression: pt was on lexapro but stated it was stopped while he was in the retirement. He would like to go back on it. He is feeling depressed. Denies SI/HI. He says he has an appt in 2 days with someone at [facility] for his ascites. Pt presented to [facility] ED on 10/04/22 with shortness of breath. [facility] ED visit: HPI History of Present Illness [...] INSJ IO LENS PROSTH W/O ECP Bilateral [facility] Family History FAMILY HISTORY Problem Relation Age of Onset Stroke Mother other (cirrhosis) Father Diabetes Br (more content not included)... [facility] 10-14-2022 Instructions Luke Barger MD - 10/14/2022 6:35 PM EDT Bring your medications with you at your next appointment Get lab work done a few days before your appointment documented in this encounter [facility] 10-14-2022 History of Presen t illness Narrative Chief Complaint Patient presents with: ER F/U HPI Richard Vargas is a 77 year old male who presents here today for ER Follow Up. Pt states he has not been taking any of his medications. Poor historia;n not sure what he has been taking. Pt here today for a [facility] ED follow up. Pt was started on Lasix 40 mg daily on 10/07/22 due to having issues with urine retention. He still has swelling in his feet and ankles. It does not improve over night. He states he was having some pain in the legs, took some Tylenol which helped. He was in [place] from Feb to Mar after having heart attack. His daughter lives with him. Depression: pt was on lexapro but stated it was stopped while he was in the retirement. He would like to go back on it. He is feeling depressed. Denies SI/HI. He says he has an appt in 2 days with someone at [facility] for his ascites. Pt presented to [facility] ED on 10/04/22 with shortness of breath. [facility] ED visit: HPI History of Present Illness [...] INSJ IO LENS PROSTH W/O ECP Bilateral [facility] Family History FAMILY HISTORY Problem Relation [...] Completed HPV VACCINE Aged Out Data reviewed [facility] ER reports ASSESSMENT/PLAN: 1. Hypothyroidism, unspecified type [...] Past Histories independently gathered by the clinical senior support analyst and the remaining scribed note accurately describes [...] Avis Caruso Ma documented in this encounter [facility] 10-07-2022 Miscellaneous Notes Pt notified and [...] calls to report he was at the [facility] ER 10/05 for SOB and retaining fluid. [...] Taylor Hammond LPN documented in this encounter [facility] 05-10-2022 Miscellaneous Notes OK; Rx sent to Thiago Barger MD Patient calls to request Synthroid prescription be sent to [facility]. Patient reports he is no longer using [facility]. Last OV: 05/09/2022 Next OV: 06/14/2022 Bertha Yost RN documented in this encounter [facility] 05-10-2022 Miscellaneous Notes Called and left [...] Luke Barger MD documented in this encounter [facility] 05-09-2022 Note HNO ID: [id number] Author: Luke Barger MD Service: ? Author Type: Physician Type: Progress Notes Filed: 05/09/2022 5:21 PM Note Text: Chief Complaint Patient presents with: SNF follow up HPI Richard Vargas is a 76 year old male who presents here today for a SNF follow up. Pt here today for a SNF f/u. Pt admitted into [facility] on 03/06/22 with increased sob and confusion. Pt discharged on 03/13/22 to [place]. Pt d/c home on 04/11/22. Daughter lives [...] 2 L at bedtime. Receives supplies through [employer]. Former smoker, quit in 2019. Falls - Has had several falls over the past year. Denies any new falls he believes since being d/c from [place] on 04/11/22. Generally uses a walker/rollator or wheelchair. Pt states that when he was a [place], [facility] came out 2-3 x per week to [...] Requested for PT OT eval and social media analyst to assist with discharge planning 13. Pancytopenia -due to chronic liver disease, monitoring with daily CBCs Past medical history, appointments, medications, allergies reviewed. Previous Medical History PAST MEDICAL HISTORY (more content not included)... [facility] 05-09-2022 Instructions Lucretia Arriaza Ma - 05/09/2022 10:44 AM EDT Schedule follow up with Dr. Hdez (Precision Devices Inspector/Tester/GI) who you seen at [facility]. They will review your stomach and liver issues. Phone #: [phone]. Follow up in 1 month. Lexapro prescription was sent to local pharmacy. Complete labs today, will call with results. documented in this encounter [facility] 05-09-2022 History of Presen t illness Narrative Chief Complaint Patient presents with: SNF follow up HPI Richard Vargas is a 76 year old male who presents here today for a SNF follow up. Pt here today for a SNF f/u. Pt admitted into [facility] on 03/06/22 with increased sob and confusion. Pt discharged on 03/13/22 to [facility]. Pt d/c home on 04/11/22. Daughter lives [...] to himself when he remembers. Follows with [facility], wants to get new [...] 2 L at bedtime. Receives supplies through [employer]. Former smoker, quit in 2019. Falls - Has had several falls over the past year. Denies any new falls he believes since being d/c from [facility] on 04/11/22. Generally uses a walker/rollator or wheelchair. Pt states that when he was a [employer], [facility] came out 2-3 x per week to [...] Requested for PT OT eval and social media analyst to assist with discharge planning 13. Pancytopenia [...] INSJ IO LENS PROSTH W/O ECP Bilateral [facility] Family History FAMILY HISTORY Problem Relation [...] SCREENING Completed PNEUMOCOCCAL: 65+ Completed Data reviewed [facility] documents ASSESSMENT/PLAN: 1. Hospital discharge follow-up - [...] Past Histories independently gathered by the clinical senior support analyst and the remaining scribed note accurately describes [...] Lucretia Arriaza Ma documented in this encounter [facility] 04-25-2022 Miscellaneous Notes Pt notified via [...] medication list. Can this be sent to [facility] pharmacy in [place]. Patient believes he misplaced that RX and can not find the medication, he believes he threw them away in all house cleaning. Patient has been identified by name and birthdate. Person calling: self Call patient at: at home [phone] (home) [phone] (cell) Was an appointment scheduled: No Closing statement: Results or non-symptom based questions: Thank you for calling [facility], your call will be returned within the next business day. Nuroa documented in this encounter [facility] 04-25-2022 Note HNO ID: [id number] Author: Bandar Cardona, GENESIS Service: ? Author Type: STORE LEAD Type: Progress Notes Filed: 04/25/2022 9:17 AM Note Text: 1. Controlled type 2 diabetes mellitus with complication, without long-term current use of insulin (HCC) Risk of diabetic changes and vision loss can be minimized by tight control of blood sugar, blood pressure, and cholesterol levels. Educated patient to continue care with primary care doctor and/or data mining analyst to maintain optimum levels as they are [...] Cardona, OD April 25, 2022 9:16 AM [facility] 04-25-2022 History of Presen t illness Narrative 1. Controlled type 2 diabetes mellitus with complication, without long-term current use of insulin (HCC) Risk of diabetic changes and vision loss can be minimized by tight control of blood sugar, blood pressure, and cholesterol levels. Educated patient to continue care with primary care doctor and/or data mining analyst to maintain optimum levels as they are [...] 2022 9:16 AM documented in this encounter [facility] 04-25-2022 Instructions Bandar Cardona, OD - 04/25/2022 9:10 AM EST Use Systane, Refresh or Blink gel once in the morning and once before bed in both eyes documented in this encounter [facility] 04-25-2022 Miscellaneous Notes Detailed VM left [...] be sent today. Please call him at [phone] when sent. Patient has been identified by name and date of : Yes Requested Prescriptions Pending Prescriptions Disp Refills rOPINIRole (REQUIP) 2 mg tablet 90 tablet 3 Sig: Take 1 tablet by mouth daily at bedtime. RX INSTRUCTIONS: Patient aware RX will be sent to pharmacy. No need to notify patient. Arely Delarosa Pss documented in this encounter [facility] 01-24-2022 Note HNO ID: [id number] Author: Luke Barger MD Service: ? Author [...] back pain without sciatica, was sent to [facility] ER by [facility]. Xrays done with report below. ER discharged [...] INSJ IO LENS PROSTH W/O ECP Bilateral [facility] Family History FAMILY HISTORY Problem [...] gabapentin (NEURONTIN) 300 (more content not included)... [facility] 01-24-2022 History of Presen t illness Narrative [...] back pain without sciatica, was sent to [facility] ER by [facility]. Xrays done with [...] INSJ IO LENS PROSTH W/O ECP Bilateral [facility] Family History FAMILY HISTORY Problem Relation Age [...] Past Histories independently gathered by the clinical senior support analyst and the remaining scribed note accurately describes [...] Avis Caruso Ma documented in this encounter [facility] 12-26-2021 Miscellaneous Notes Called and left [...] Please advise and return his call at [phone] Called and left a detailed voicemail notifying [...] for his arthritis ? Contact patient at [phone]. Mariah José Pss documented in this encounter [facility] 12-02-2021 History of Presen t illness Narrative Subjective The history is provided by the patient and a relative. No speech and language clinician was used. HPI Richard Vargas is a [...] have confirmed and edited as necessary, the [facility] Review of Systems Constitutional: Negative [...] and lack of investigative tools available at [facility], recommend patient be seen at nearest ED for further work up ERpassport sent to [place] [facility] to transport, [facility]. Diagnosis and treatment plan were discussed and questions were answered to the patient's satisfaction. Pt acknowledged understanding of concepts and follow up plan. Specific signs and symptoms that would indicate the need for higher level of care were discussed in detail warranting prompt ER evaluation. Felicita Steen APRN.MARU documented in this encounter [facility] 11-16-2021 Miscellaneous Notes Noted; that should be fine Luke Barger MD documented in this encounter [facility] 11-15-2021 History of Presen t illness [...] INSJ IO LENS PROSTH W/O ECP Bilateral [facility] ALLERGIES Aloe Vera and Diclofenac [...] Carmen Rock APRN.CNP documented in this encounter [facility] 11-15-2021 Instructions Carmen Rock APRN.CNP - [...] Carmen Rock APRN.CNP documented in this encounter [facility] 11-15-2021 Miscellaneous Notes The following approved medication requests have been transmitted electronically. Requested Prescriptions Pending Prescriptions Disp Refills rOPINIRole (REQUIP) 2 mg tablet 90 tablet 3 Sig: Take 1 tablet by mouth daily at bedtime. Filomena Allen APRN.CNP Pharmacy verified in [facility] Patient has been identified by name [...] Maria L Ortiz documented in this encounter [facility] 10-17-2021 History and physical note Images [...] INSJ IO LENS PROSTH W/O ECP Bilateral [facility] CURRENT MEDICATIONS Current Outpatient Medications [...] entered by the nurse and reviewed by ma Nursing Notes: Radha Arenas LPN 09/04/2021 1:22 [...] anesthetic care. This will be done in [place] Diagnoses: (L81.9) Pigmented skin lesion of uncertain [...] TIME: 8:47 AM documented in this encounter [facility] 10-11-2021 Miscellaneous Notes The following approved [...] Last Labs: 06/28/2021 documented in this encounter [facility] 10-05-2021 Instructions Luzmaria Ruiz APRN.ASSISTANT EDUCATION DIRECTOR - 10/05/2021 9:01 AM EDT PATIENT PREOPERATIVE INSTRUCTIONS Geovanny Baca MD has scheduled you for your procedure at this surgery center: [facility]: [phone] -- [address] [address]. Please read below carefully for your personalized [...] Procedures: - YOU MUST HAVE A RESPONSIBLE SENIOR APPLICATION PROGRAMMER TAKE YOU HOME. A SHAMPOOER OR FREIGHT HANDLER CANNOT BE MADE A RESPONSIBLE SENIOR APPLICATION PROGRAMMER. - We recommend that a responsible person [...] Advance Directive, please fax a copy to [phone] or email to for it to be [...] Luzmaria Ruiz APRN.MARU documented in this encounter [facility] 10-05-2021 History and physical note HISTORY [...] today at the request of Dr. Luke Baregr MD for my opinion and advice regarding [...] INSJ IO LENS PROSTH W/O ECP Bilateral [facility] FAMILY HISTORY Problem Relation Age of [...] or any previous visit (from the past 64310 hour(s)). Assessment Acquired hypothyroidism Assessment: stable on [...] sleepy during the daytime STOP-Bang Score: 7 [id number] Score: Age: >=75 Sex: male CHF history: No Hypertension history: Yes Stroke/TIA/thromboembolism history: No Vascular disease history: No Diabetes history: Yes [id number] Score: 4 ARISCAT Score: Age: 51-80 Preoperative [...] and consent discussed: yes. Patient / Responsible Green Party agrees to proceed: yes Patient / [...] AM PAGER/CONTACT #: documented in this encounter [facility] 09-18-2021 Instructions Sulma Davis - 09/18/2021 9:02 AM EDT The following instructions are important for you related to your office visit today with the [facility] General Surgeons. Instructions After Skin Excison [...] you should contact our office immediately @ [phone] and ask to be transferred to the General Surgery department. documented in this encounter [facility] 09-18-2021 History of Presen t illness [...] labeled. Sulma Davis documented in this encounter [facility] 09-04-2021 Instructions Geovanny Baca MD - [...] If you do not have a responsible line haul driver (family member or friend) with you [...] preparation [facility] at your local [facility]. 01/2019 Bowel Preparation Instructions for: Golytely, [...] non-dairy creamer) Carbonated and non-carbonated soft drinks Ebnnie-Aid or other fruit flavored drinks Strained fruit [...] exam. 3 01/2019 documented in this encounter [facility] 09-04-2021 History of Presen t illness [...] LENS PROSTH W/O ECP Bilateral [facility] Current Outpatient Medications Medication Sig meloxicam (MOBIC) [...] entered by the nurse and reviewed by ma Nursing Notes: Radha Arenas LPN 09/04/2021 1:22 [...] anesthetic care. This will be done in [place] Diagnoses: (L81.9) Pigmented skin lesion of uncertain [...] Radha Arenas LPN documented in this encounter [facility] 09-04-2021 History of Presen t illness [...] butt cheek. Would like to go to [facility] or [facility]. Past medical history, appointments, medications, [...] INSJ IO LENS PROSTH W/O ECP Bilateral [facility] Family History FAMILY HISTORY Problem Relation [...] Past Histories independently gathered by the clinical senior support analyst and the remaining scribed note accurately describes [...] Avis Caruso Ma documented in this encounter [facility] 08-28-2021 Miscellaneous Notes See other phone note Luke Barger MD Patient reports he was seen in [facility] on 08/24/21 after a fall. He was [...] seen on 09/04. Requesting [facility] in [place]. Please call patient with advise. Thank you. documented in this encounter [facility] 08-27-2021 Miscellaneous Notes Patient went to [...] something for pain. documented in this encounter [facility] 07-12-2021 Instructions Filomena Allen APRN.CNP - 07/12/2021 2:43 PM EDT 1.) Get repeat labs in 1 month. 2.) Complete stool sample to check for blood. 3.) [facility] [place] 4.) Keep scheduled appointment with Pulmonology at [place]. 5.) Continue to work on eating a low carb diet, increase protein and veggies. 6.) Follow up in 3 months or sooner as needed. documented in this encounter [facility] 07-12-2021 History of Presen t illness [...] INSJ IO LENS PROSTH W/O ECP Bilateral [facility] ALLERGIES: Aloe Vera and Diclofenac [...] Will be seeing pulmonology at [place] in [place] in August. Quit smoking 3 years ago. [...] INSJ IO LENS PROSTH W/O ECP Bilateral [facility] ALLERGIES Aloe Vera and Diclofenac [...] discussed and patient voices understanding. Filomena Allen APRN.ASSISTANT EDUCATION DIRECTOR This note was partially generated using [employer] recognition system. Note was reviewed for accuracy. There may be minor misspellings or grammar miscues with [employer] voice recognition. documented in this encounter [facility] 06-14-2021 History of Presen t illness Narrative [employer] Enrollment Provider Action/FYI: 3 attempts to reach patient in 2020 for enrollment unsuccessful. [employer] introduction message sent recently- not read Fifth attempt to reach patient Patient referred by: [facility] Debbie Contact made with patient: No - 2nd attempt to reach patient, left another message: Hi my name is Kacie Wood RN and I am calling from the [facility] on behalf of your PCP, Luke Barger MD. We are excited to share with you a new program to help you manage your health. Please call me back at [phone] . I hope you can take the time to speak with me. (Keep encounter open for additional two business days in case patient calls back. Close encounter if no response by end of second business day) Closing: Could not reach the patient after two attempted outreaches. Rail Operator to retry patient in one week. 5 attempts END OUTREACH documented in this encounter [facility] 05-15-2021 Miscellaneous Notes Detailed message left on pt identified VM that he needs to make appt and get blood work done. Avis Caruso Ma OK to refill as ordered He is due for office visit and labs as ordered Luke Barger MD documented in this encounter [facility] documented as of this encounter (statuses as of 05/15/2021) [facility] History of Past illness Narrative* Problem [...] of this encounter (statuses as of 06/14/2021) [facility] History of Past illness Narrative* Problem [...] of this encounter (statuses as of 07/12/2021) [facility] History of Past illness Narrative* Problem [...] of this encounter (statuses as of 08/27/2021) [facility] History of Past illness Narrative* Problem [...] of this encounter (statuses as of 08/28/2021) [facility] History of Past illness Narrative* Problem [...] of this encounter (statuses as of 09/04/2021) [facility] History of Past illness Narrative* Problem [...] of this encounter (statuses as of 09/04/2021) [facility] History of Past illness Narrative* Problem [...] of this encounter (statuses as of 09/18/2021) [facility] History of Past illness Narrative* Problem [...] of this encounter (statuses as of 10/05/2021) [facility] History of Past illness Narrative* Problem [...] of this encounter (statuses as of 10/11/2021) [facility] History of Past illness Narrative* Problem [...] of this encounter (statuses as of 10/18/2021) [place] [id number] History of Past illness Narrative* Problem Noted [...] of this encounter (statuses as of 11/15/2021) [facility] of Past illness Narrative* Problem [...] of this encounter (statuses as of 11/16/2021) [facility] History of Past illness Narrative* Problem [...] of this encounter (statuses as of 11/20/2021) [facility] History of Past illness Narrative* Problem [...] of this encounter (statuses as of 12/02/2021) [facility] History of Past illness Narrative* Problem [...] of this encounter (statuses as of 12/26/2021) [facility] History of Past illness Narrative* Problem [...] of this encounter (statuses as of 01/24/2022) [facility] History of Past illness Narrative* Problem [...] of this encounter (statuses as of 04/25/2022) [facility] History of Past illness Narrative* Problem [...] of this encounter (statuses as of 04/25/2022) [facility] History of Past illness Narrative* Problem [...] of this encounter (statuses as of 04/25/2022) [facility] of Past illness Narrative* Problem [...] of this encounter (statuses as of 05/10/2022) [facility] of Past illness Narrative* Problem [...] of this encounter (statuses as of 05/10/2022) [facility] of Past illness Narrative* Problem [...] of this encounter (statuses as of 05/10/2022) [facility] of Past illness Narrative* Problem [...] of this encounter (statuses as of 10/07/2022) [facility] History of Past illness Narrative* Problem [...] of this encounter (statuses as of 10/15/2022) [facility] History of Past illness Narrative* Problem [...] of this encounter (statuses as of 11/28/2022) [facility] History of Past illness Narrative* Problem [...] of this encounter (statuses as of 12/25/2022) [facility]* Diagnosis Hypothyroidism, unspecified type- Primary Essential hypertension Unspecified essential hypertension Acquired hypothyroidism Unspecified hypothyroidism Controlled diabetes mellitus type 2 with complications, unspecified whether fci insulin use (HCC) Mixed hyperlipidemia BPH with obstruction/lower urinary tract symptoms Hypertrophy of prostate with urinary obstruction and other lower urinary tract symptoms (LUTS) [facility]* Diagnosis Medicare annual wellness visit, subsequent- [...] (HCC) Paralysis agitans [facility] Diagnosis Acute right-sided low back pain without sciatica- Primary Right hip pain Pain in joint, pelvic region and thigh Seborrheic keratosis Other seborrheic keratosis Difficulty sleeping Sleep disturbance, unspecified Atypical mole Benign neoplasm of skin, site unspecified [facility] Diagnosis Pigmented skin lesion of uncertain nature- Primary Atypical mole Benign neoplasm of skin, site unspecified Encounter for screening for malignant neoplasm of colon Special screening for malignant neoplasms, colon [facility] Diagnosis Skin lesion of back- Primary Unspecified disorder of skin and subcutaneous tissue [facility] Diagnosis Pre-operative examination- Primary Preoperative examination, [...] Thrombocytopenia Thrombocytopenia, unspecified [facility] Diagnosis Acute right-sided low back pain without sciatica Right hip pain Pain in joint, pelvic region and thigh [facility] Diagnosis Encounter for screening for malignant neoplasm of colon- Primary Special screening for malignant neoplasms, colon [facility]* Diagnosis RLS (restless legs syndrome)- Primary Restless legs syndrome (RLS) [facility]* Diagnosis Essential hypertension Unspecified essential hypertension RLS (restless legs syndrome) Restless legs syndrome (RLS) [facility]* Diagnosis Fall, initial encounter- Primary Acute right-sided low back pain without sciatica [facility] Diagnosis Upper back pain- Primary Need for influenza vaccination Need for prophylactic vaccination and inoculation against influenza Wheezing [facility] Diagnosis RLS (restless legs syndrome) Restless legs syndrome (RLS) [facility]* Diagnosis Controlled type 2 diabetes mellitus with complication, without long-term current use of insulin (HCC)- Primary Dry eye syndrome of both eyes Punctate keratitis, bilateral Epiretinal membrane (ERM) of left eye Optic nerve drusen, bilateral Pseudophakia Lens replaced by other means [facility] Diagnosis Hospital discharge follow-up- Primary Other [...] Thrombocytopenia Thrombocytopenia, unspecified [facility] Diagnosis Hypothyroidism, unspecified type- Primary Essential hypertension Unspecified essential hypertension Controlled type 2 diabetes mellitus with complication, without long-term current use of insulin (HCC) Mixed hyperlipidemia Iron deficiency anemia due to chronic blood loss Iron deficiency anemia secondary to blood loss (chronic) [facility] Diagnosis Hypothyroidism, unspecified type- Primary [...] chronic respiratory failure documented in this encounter [facility] for referral (narrative)* Outpatient Procedure (Routine) - Authorized Specialty Diagnoses / Procedures Referred By Contac t Referred To Contact [facility] Diagnoses Encounter for screening for malignant neoplasm of colon Procedures COLONOSCOPY DIAGNOSTIC COLONOSCOPY FLX DX W/COLLJ SPEC WHEN Geovanny Long MD [address] [place] [address] [facility] [place] [address] [address] Referral ID Status Reason Start Date Expiration Date Visits Requested Visits Authorized [id number] Authorized Auto-Generat ed Referral 09/04/2021 09/04/2022 1 1 [facility] for referral (narrative)* Outpatient Procedure (Routine) - Closed Specialty Diagnoses / Procedures Referred By Contac t Referred To Contact [facility]IGEST[facility] DISEASE [facility] Diagnoses Encounter for screening for malignant neoplasm of colon Procedures COLONOSCOPY DIAGNOSTIC COLONOSCOPY FLX DX W/COLLJ SPEC WHEN Geovanny Long MD [address] [place] [address] [address] Referral ID Status Reason Start Date Expiration Date V isits Requested Visits Authorized [id number] Closed Auto-Generate d Referral 09/04/2021 09/04/2022 1 1 [facility] Out[facility] Procedure (Routine) - Closed Specialty Diagnoses / Procedures Referred By [place] white Referred To Contact [facility] Diagnoses Encounter for screening for malignant neoplasm of colon Procedures COLONOSCOPY DIAGNOSTIC COLONOSCOPY FLX DX W/COLLJ SPEC WHEN PFRMD Geovanny Baca MD [address] [place] [address] [facility] [address] [place] [address] Referral ID Status Reason Start Date Expiration Date V isits Requested Visits Authorized [id number] Closed Auto-Generate d Referral 09/04/2021 09/04/2022 1 1 [facility] Instructions Name Dates Details Smoker : [...] Documents on File Type Date Recorded 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 Advance Directive(s) 09/23/2008 9:59 PM Documents on File Type Date Recorded 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 Advance Directive(s) 09/23/2008 9:59 PM [...] lesion Procedures CONSULT TO DERMATOLOGY Filomena Allen APRN.ASSISTANT EDUCATION DIRECTOR [address] [place] [address] Referral ID Status Reason Start Date Expiration Date Visits Requested Visits Authorized [id number] Ref Not Required PCP Requested Referral 07/12/2021 07/12/2022 1 1 Specialty Diagnoses / Procedures Referred By Contac t Referred To Contact General Surgery Diagnoses Seborrheic keratosis Atypical mole Procedures CONSULT TO GENERAL SURGERY OFFICE/OUTPATIENT [facility] 60-74 MINUTES Luke Barger MD [address] [place] [address] Referral ID Status Reason Start Date Expiration Date V isits Requested Visits Authorized [id number] Closed PCP Requested Referral 09/04/2021 09/04/2022 1 [...] mole Procedures CONSULT TO GENERAL SURGERY OFFICE/OUTPATIENT [facility] 60-74 MINUTES Luke Barger MD [address] [place] [address] Referral ID Status Reason Start Date Expiration Date V isits Requested Visits Authorized [id number] Closed PCP Requested Referral 09/04/2021 09/04/2022 1 [...] or prosecute any alcohol or drug abuse patient.[facility] the event this information is protected by the Federal Confidentiality of Alcohol and Drug Abuse Patient Records regulations: The Federal rules restrict any use of the information to criminally investigate or prosecute any alcohol or drug abuse patient.[facility] the event this information is protected by the Federal Confidentiality of Alcohol and Drug Abuse Patient Records regulations: The Federal rules restrict any use of the information to criminally investigate or prosecute any alcohol or drug abuse patient.[facility] the event this information is protected by the Federal Confidentiality of Alcohol and Drug Abuse Patient Records regulations: The Federal rules restrict any use of the information to criminally investigate or prosecute any alcohol or drug abuse patient.[facility] the event this information is protected by the Federal Confidentiality of Alcohol and Drug Abuse Patient Records regulations: The Federal rules restrict any use of the information to criminally investigate or prosecute any alcohol or drug abuse patient.[facility] the event this information is protected by the Federal Confidentiality of Alcohol and Drug Abuse Patient Records regulations: The Federal rules restrict any use of the information to criminally investigate or prosecute any alcohol or drug abuse patient.[facility] the event this information is protected by the Federal Confidentiality of Alcohol and Drug Abuse Patient Records regulations: The Federal rules restrict any use of the information to criminally investigate or prosecute any alcohol or drug abuse patient.[facility] the event this information is protected by the Federal Confidentiality of Alcohol and Drug Abuse Patient Records regulations: The Federal rules restrict any use of the information to criminally investigate or prosecute any alcohol or drug abuse patient.[facility] HospitalIn the event this information is protected by the Federal Confidentiality of Alcohol and Drug Abuse Patient Records regulations: The Federal rules restrict any use of the information to criminally investigate or prosecute any alcohol or drug abuse patient.[facility] the event this information is protected by the Federal Confidentiality of Alcohol and Drug Abuse Patient Records regulations: The Federal rules restrict any use of the information to criminally investigate or prosecute any alcohol or drug abuse patient.[facility] the event this information is protected by the Federal Confidentiality of Alcohol and Drug Abuse Patient Records regulations: The Federal rules restrict any use of the information to criminally investigate or prosecute any alcohol or drug abuse patient.[facility] the event this information is protected by the Federal Confidentiality of Alcohol and Drug Abuse Patient Records regulations: The Federal rules restrict any use of the information to criminally investigate or prosecute any alcohol or drug abuse patient.[facility] Hospital[facility] the event this information is protected by the Federal Confidentiality of Alcohol and Drug Abuse Patient Records regulations: The Federal rules restrict any use of the information to criminally investigate or prosecute any alcohol or drug abuse patient.[facility] the event this information is protected by the Federal Confidentiality of Alcohol and Drug Abuse Patient Records regulations: The Federal rules restrict any use of the information to criminally investigate or prosecute any alcohol or drug abuse patient.[facility] Hospital[facility] the event this information is protected by the Federal Confidentiality of Alcohol and Drug Abuse Patient Records regulations: The Federal rules restrict any use of the information to criminally investigate or prosecute any alcohol or drug abuse patient.[facility] HospitalIn the event this information is protected by the Federal Confidentiality of Alcohol and Drug Abuse Patient Records regulations: The Federal rules restrict any use of the information to criminally investigate or prosecute any alcohol or drug abuse patient.[facility] HospitalIn the event this information is protected by the Federal Confidentiality of Alcohol and Drug Abuse Patient Records regulations: The Federal rules restrict any use of the information to criminally investigate or prosecute any alcohol or drug abuse patient.[facility] Hospital[facility] the event this information is protected by the Federal Confidentiality of Alcohol and Drug Abuse Patient Records regulations: The Federal rules restrict any use of the information to criminally investigate or prosecute any alcohol or drug abuse patient.[facility] HospitalIn the event this information is protected by the Federal Confidentiality of Alcohol and Drug Abuse Patient Records regulations: The Federal rules restrict any use of the information to criminally investigate or prosecute any alcohol or drug abuse patient.[facility] the event this information is protected by the Federal Confidentiality of Alcohol and Drug Abuse Patient Records regulations: The Federal rules restrict any use of the information to criminally investigate or prosecute any alcohol or drug abuse patient.[facility] Hospital[facility] the event this information is protected by the Federal Confidentiality of Alcohol and Drug Abuse Patient Records regulations: The Federal rules restrict any use of the information to criminally investigate or prosecute any alcohol or drug abuse patient.[facility] HospitalIn the event this information is protected by the Federal Confidentiality of Alcohol and Drug Abuse Patient Records regulations: The Federal rules restrict any use of the information to criminally investigate or prosecute any alcohol or drug abuse patient.[facility] HospitalIn the event this information is protected by the Federal Confidentiality of Alcohol and Drug Abuse Patient Records regulations: The Federal rules restrict any use of the information to criminally investigate or prosecute any alcohol or drug abuse patient.[facility] Hospital[facility] the event this information is protected by the Federal Confidentiality of Alcohol and Drug Abuse Patient Records regulations: The Federal rules restrict any use of the information to criminally investigate or prosecute any alcohol or drug abuse patient.[facility] Hospital[facility] the event this information is protected by the Federal Confidentiality of Alcohol and Drug Abuse Patient Records regulations: The Federal rules restrict any use of the information to criminally investigate or prosecute any alcohol or drug abuse patient.[facility] HospitalIn the event this information is protected by the Federal Confidentiality of Alcohol and Drug Abuse Patient Records regulations: The Federal rules restrict any use of the information to criminally investigate or prosecute any alcohol or drug abuse patient.[facility] HospitalIn the event this information is protected by the Federal Confidentiality of Alcohol and Drug Abuse Patient Records regulations: The Federal rules restrict any use of the information to criminally investigate or prosecute any alcohol or drug abuse patient.[facility] Care Teams (unrecognized sec tion and content) Folder Taper Operator Relationship Specialty Start Date End Date Luke Barger MD [address] [place] [address] PCP - General Family Practice 05/22/18 Folder Taper Operator Relationship Specialty Start Date End Date Luke Barger MD [facility] [place] [address] PCP - General Family Practice 05/22/18 Folder Taper Operator Relationship Specialty Start Date End Date Luke Barger MD [address] [place] [address] PCP - General Family Practice 05/22/18 Folder Taper Operator Relationship Specialty Start Date End Date Luke Barger MD [facility] [place] [address] PCP - General Family Practice 05/22/18 Folder Taper Operator Relationship Specialty Start Date End Date Luke Barger MD [address] [facility] [address] PCP - General Family Practice 05/22/18 Folder Taper Operator Relationship Specialty Start Date End Date Luke Barger MD [address] [place] [address] [place] [address] PCP - General Family Practice 05/22/18 Folder Taper Operator Relationship Specialty Start Date End Date Luke Barger MD [address] [place] [address] PCP - General Family Practice 05/22/18 Folder Taper Operator Relationship Specialty Start Date End Date Luke Barger MD [address] [place] [address] PCP - General Family Practice 05/22/18 Folder Taper Operator Relationship Specialty Start Date End Date Luke Barger MD [address] [place] [address] PCP - General Family Practice 05/22/18 Folder Taper Operator Relationship Specialty Start Date End Date Luke Barger MD [address] [place] [address] PCP - General Family Medicine 05/22/18 Folder Taper Operator Relationship Specialty Start Date End Date Luke Barger MD [address] [place] [address] PCP - General Family Medicine 05/22/18 Folder Taper Operator Relationship Specialty Start Date End Date Luke Barger MD [address] [place] [address] PCP - General Family Medicine 05/22/18 Folder Taper Operator Relationship Specialty Start Date End Date Luke Barger MD [address] [place] [address] PCP - General Family Medicine 05/22/18 Folder Taper Operator Relationship Specialty Start Date End Date Luke Barger MD [address] [place] [address] PCP - General Family Medicine 05/22/18 Folder Taper Operator Relationship Specialty Start Date End Date Luke Barger MD [address] [place] [address] PCP - General Family Medicine 05/22/18 Folder Taper Operator Relationship Specialty Start Date End Date Luke Barger MD [address] [place] [address] PCP - General Family Medicine 05/22/18 Folder Taper Operator Relationship Specialty Start Date End Date Luke Barger MD [address] [place] [address] PCP - General Family Medicine 05/22/18 Folder Taper Operator Relationship Specialty Start Date End Date Luke Barger MD [address] [place] [address] PCP - General Family Medicine 05/22/18 Folder Taper Operator Relationship Specialty Start Date End Date Luke Barger MD [address] [place] [address] PCP - General Family Medicine 05/22/18 Folder Taper Operator Relationship Specialty Start Date End Date Luke Barger MD [address] [place] [address] PCP - General Family Medicine 05/22/18 Folder Taper Operator Relationship Specialty Start Date End Date Luke Barger MD [address] [place] [address] PCP - General Family Medicine 05/22/18 (unrecognized sect ion and content) No Status Records FoundNo Status Records Found INFORMATION SOURCE (unrecogn ized section and content) DATE CREATED AUTHOR AUTHOR'S ORGANIZ ATION 12/26/2022 [facility] FOR RECORDS PERTAINING TO PATIENTS WHO ARE [...] BE BASED ON THE PRIMARY CLINICAL RECORDS. [facility] [employer] [facility]. provides no warranty or guarantee of the accuracy or completeness of information in this document.
[2023-03-04 08:02] LABS: CREATININE FINGERSTICK < 1.0 mg/dL (0.70-1.30); EGFR FINGERSTICK > 60.0000 mL/min (>60)
== END | disposition home or self-care (01) ==
LOC: CT 07:25
PROVIDERS: PCP Family Medicine Geriatric Medicine; Referring Provider Internal Medicine; Visit Provider Internal Medicine
DX: K74.60 Unspecified cirrhosis of liver (principal)
CPT/HCPCS: 74178; Q9967

== ENCOUNTER → 2023-03-11 | Outpatient (CLI) | payer MEDICARE, OTHER, SELFPAY ==
--- OUTSIDE RECORDS SUMMARY | 2023-03-11 09:31 | XMS RPT_ITS | CCD ---
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 [employer]ging Name Role Phone SaranyaRadha blanco E Unavailable Ming Garrido Unavailable Physical Therapy, [facility] Unavailable [phone] Bebeto Marrufo Unavailable [phone] Ryan Shine Unavailable Matheus Mills Unavailable [phone] Darrian Martin Unavailable [phone] Mansi Sanabria Unavailable Darrian Martin Unavailable [phone] Eboni Cisse Unavailable Martinez Srinivasan Unavailable Deana Moreland Unavailable Unavailable Kerri Ferreira Unavailable Unavailable Anastasiia Norwood Unavailable Unavailable Unavailable Unavailable Greyson Vazquez MD Unavailable [phone] Luke Barger MD Primary Care Provider [...] Drug Class(es) Dates Sig (Normalized) Sig (Original) [id number] 200 actuat albuterol 0.09 mg/actuat metered dose [...] 12:17-0400 Body temperature 97.59 [degF] Felicita Celsa REAMING PRESS OPERATOR.FIRE HYDRANT MECHANIC Work Phone: [facility] 12-02-2021 12:17-0400 Body weight 99.79 kg Felicita Celsa REAMING PRESS OPERATOR.FIRE HYDRANT MECHANIC Work Phone: [facility] 12-02-2021 12:17-0400 Diastolic blood pressure 76 mm[Hg] Felicita Celsa REAMING PRESS OPERATOR.FIRE HYDRANT MECHANIC Work Phone: [facility] 12-02-2021 12:17-0400 Heart rate 94 /min Felicita Celsa REAMING PRESS OPERATOR.FIRE HYDRANT MECHANIC Work Phone: [facility] 12-02-2021 12:17-0400 Respiratory rate 21 /min Felicita Celsa REAMING PRESS OPERATOR.FIRE HYDRANT MECHANIC Work Phone: [facility] 12-02-2021 12:17-0400 SaO2% (BldA) [Mass fraction] 95 % Felicita Celsa REAMING PRESS OPERATOR.FIRE HYDRANT MECHANIC Work Phone: [facility] 12-02-2021 12:17-0400 Systolic blood pressure 182 mm[Hg] Felicita Celsa REAMING PRESS OPERATOR.FIRE HYDRANT MECHANIC Work Phone: [facility] 11-15-2021 18:44-0400 Body temperature 97.2 [degF] Carmen Praisler-Wood REAMING PRESS OPERATOR.FIRE HYDRANT MECHANIC Work Phone: [facility] 11-15-2021 18:44-0400 Body weight 96.07 kg Carmen Praisler-Wood REAMING PRESS OPERATOR.FIRE HYDRANT MECHANIC Work Phone: [facility] 11-15-2021 18:44-0400 Diastolic blood pressure 78 mm[Hg] Carmen Praisler-Wood REAMING PRESS OPERATOR.FIRE HYDRANT MECHANIC Work Phone: [facility] 11-15-2021 18:44-0400 Heart rate 79 /min Carmen Praisler-Wood REAMING PRESS OPERATOR.FIRE HYDRANT MECHANIC Work Phone: [facility] 11-15-2021 18:44-0400 Respiratory rate 18 /min Carmen Praisler-Wood REAMING PRESS OPERATOR.FIRE HYDRANT MECHANIC Work Phone: [facility] 11-15-2021 18:44-0400 SaO2% (BldA) [Mass fraction] 97 % Carmen Praisler-Wood REAMING PRESS OPERATOR.FIRE HYDRANT MECHANIC Work Phone: [facility] 11-15-2021 18:44-0400 Systolic blood pressure 156 mm[Hg] Carmen Praisler-Wood REAMING PRESS OPERATOR.FIRE HYDRANT MECHANIC Work Phone: [facility] 10-17-2021 09:59-0400 [...] 14:22-0400 Body height 169 cm Filomena Allen REAMING PRESS OPERATOR.FIRE HYDRANT MECHANIC Work Phone: [facility] 07-12-2021 14:22-0400 Body weight 102.06 kg Filomena Allen REAMING PRESS OPERATOR.FIRE HYDRANT MECHANIC Work Phone: [facility] 07-12-2021 14:22-0400 Diastolic blood pressure 70 mm[Hg] Filomena Allen REAMING PRESS OPERATOR.FIRE HYDRANT MECHANIC Work Phone: [facility] 07-12-2021 14:22-0400 Heart rate 65 /min Filomenajuventino Allen REAMING PRESS OPERATOR.FIRE HYDRANT MECHANIC Work Phone: [facility] 07-12-2021 14:22-0400 Respiratory rate 16 /min Filomenajuventino Allen REAMING PRESS OPERATOR.FIRE HYDRANT MECHANIC Work Phone: [facility] 07-12-2021 14:22-0400 SaO2% (BldA) [Mass fraction] 95 % Filomena Tiffany REAMING PRESS OPERATOR.FIRE HYDRANT MECHANIC Work Phone: [facility] 07-12-2021 14:22-0400 Systolic blood pressure 160 mm[Hg] Filomenajuventino Allen REAMING PRESS OPERATOR.FIRE HYDRANT MECHANIC Work Phone: [facility] 01-13-2018 13:06-0500 BMI (Body Mass Index) 35.7 kg/m2 [facility] Work Phone: 01-13-2018 13:06-0500 Body Temperature 98.7 [degF] [facility] Work Phone: Encounters Encounter Date [...] cleared fda spec home use Richard Agee REAMING PRESS OPERATOR.BAND SCROLL SAW OPERATOR Work Phone: Start: 10-17-2021 Colonoscopy Carmen Rock REAMING PRESS OPERATOR.FIRE HYDRANT MECHANIC Work Phone: Start: 07-12-2021 Adult depression screening assessment Filomena Allen REAMING PRESS OPERATOR.FIRE HYDRANT MECHANIC Work Phone: Start: 07-21-2019 End: 07-21-2019 Blood [...] 05-22-2018 Adult depression screening assessment Adolfo Ryder REAMING PRESS OPERATOR.FIRE HYDRANT MECHANIC Work Phone: Start: 01-09-2018 End: 01-09-2018 Emergency Department Summary Comments: See Note; NOTES: [facility] Medical Records Department [address] [place] [address] Emergency Department Summary 01/09/18 0645 MR#: [id number] Acct: [id number] Name: RICHARD VARGAS Rep #: [id number] : 1945 72 From: Ermelinda Deng MD [...] Parkinson's disease This note was generated with [employer] dictation software. It may contain incorrect words, spelling, and punctuation that were not noted in review of the chart prior to signing ED Disposition - Plan for ED Patient: Chief Complaint: Syncope Referrals: Radha Torres, PROJECT ASSISTANT-C [Primary Care Provider] - What to do if you have Problems For any increased pain, shortness of breath, bleeding, nausea or vomiting, chest pain, or any unexpected problems, contact your Primary Care Provider. Call [facility] ([phone]) or report to the closest Emergency Room. Call 911 if necessary. 01/09/18 0753 <Electronically signed by Ermelinda Deng MD> Date Ermelinda Deng MD Cosigner Signature (If Indicated): Date CC: Radha Torres Start: 01-09-2018 End: 01-09-2018 Brain/Head without Contrast Comments: See Note; NOTES: [facility] Imaging Services [address] [place] [address] Brain/Head without Contrast MR#: [id number] Acct: [id number] Name: RICHARD VARGAS Rep #: [id number] : 1945 M 72 From: James Faustin MD PCP: Radha Torres NP Status: REG ER Study: Brain/Head without Contrast Date of Exam: 01/09/18 Exam# [id number] Ordering Dr: Ermelinda Deng MD STUDY: CT [...] CC: Radha Torres NP; Ermelinda Deng MD Outpatient Admitting Clerk: Signed Radha Torres Start: 01-09-2018 End: 01-09-2018 Chest 1 View Comments: See Note; NOTES: [facility] Imaging Services [address] [place] [address] Chest 1 View MR#: [id number] Acct: [id number] Name: RICHARD VARGAS Rep #: [id number] : 1945 M 72 From: James Faustin MD PCP: Radha Torres NP Status: REG ER Study: Chest 1 View Date of Exam: 01/09/18 Exam# [id number] Ordering Dr: Ermelinda Deng MD STUDY: X-RAY [...] CC: Radha Torres NP; Ermelinda Deng MD Outpatient Admitting Clerk: Signed Radha Torres Start: 02-26-2017 End: 02-26-2017 Chest WITH Contrast Comments: See Note; NOTES: [facility] Imaging Services [address] [place] [address] Chest WITH Contrast MR#: [id number] Acct: [id number] Name: RICHARD VARGAS Rep #: [id number] : 1945 M 71 From: Amadeo Dc MD PCP: Cindy Maria DO Status: REG CLI Study: Chest WITH Contrast Date of Exam: 02/26/17 Exam# [id number] Ordering Dr: Cindy Maria DO STUDY: CT [...] spleen. Although not fully included in the [id number], spleen appears upper limits of normal size. [...] Service support , CC: Cindy Maria DO Outpatient Admitting Clerk: Signed Cindy Maria Work Phone: Start: 02-27-2016 End: 02-27-2016 Emergency Department Summary Comments: See Note; NOTES: [facility] Medical Records Department [address] [place] [address] Emergency Department Summary MR#: [id number] Acct: [id number] Name: RICHARD VARGAS Rep #: [id number] : 1945 70 From: Richard Miranda MD PCP: Piyush Sanabria Status: [facility] DATE OF SERVICE: 02/27/2016 CHIEF COMPLAINT: [...] Discharge. Richard Miranda MD T: NTS JOB: [id number] 02/27/16 033 <Electronically signed by Richard Miranda MD> Date Richard Miranda MD Cosigner Signature (If Indicated): Date CC: Piyush Sanabria Date Dictated: 02/27/16150 Date Transcribed: 02/27/16150 Outpatient Admitting Clerk: Corey Torres Start: 02-27-2016 End: 02-27-2016 Discharge Instruction Comments: See Note; NOTES: [facility] Medical Records Department [address] [place] [address] Discharge Instruction 02/27/16 0149 MR#: [id number] Acct: [id number] Name: SOHANRICHARD Rep #: [id number] : 1945 70 From: Richard Miranda MD [...] your Primary Care Provider. Call [facility] ([phone]) or report to the closest Emergency Room. [...] Essential hypertension Expected: 10/14/2022 (Approximate), Expires: 12/14/2022 [facility] Work Phone: Immunizations Immunization Date Immunization Notes Care Provider Georgina keller 01-24-2022 influenza, high-dose , quadrivalent vaccine (FLUZONE HIGH DOSE QUADRIVALENT) Luke Barger MD Work Phone: [facility] 01-24-2022 influenza virus vaccine, unspecified formulation Filomena Allen REAMING PRESS OPERATOR.FIRE HYDRANT MECHANIC Work Phone: [facility] 11-19-2019 influenza, high-dose , quadrivalent vaccine (FLUZONE HIGH DOSE QUADRIVALENT) Adolfo Ryder APRN.FIRE HYDRANT MECHANIC Work Phone: [facility] 07-20-2019 tetanus toxoid, reduced diphtheria toxoid, and acellular pertussis vaccine, adsorbed Adolfo Caldwellil REAMING PRESS OPERATOR.FIRE HYDRANT MECHANIC Work Phone: [facility] Work Phone: 11-06-2018 influenza, high dose seasonal, preservative-free Adolfo Rosalio REAMING PRESS OPERATOR.FIRE HYDRANT MECHANIC Work Phone: [facility] 02-18-2016 tetanus and diphther ia toxoids, adsorbed, preservative free, for adult use (2 Lf of tetanus toxoid and 2 Lf of diphtheria toxoid) [facility] Work Phone: 04-13-2015 pneumococcal conjuga te vaccine, 13 valent Adolfo Rosalio REAMING PRESS OPERATOR.FIRE HYDRANT MECHANIC Work Phone: [facility] Work Phone: 12-20-2014 influenza, high dose seasonal, preservative-free Adolfo Rosalio REAMING PRESS OPERATOR.FIRE HYDRANT MECHANIC Work Phone: [facility] 02-17-2014 influenza, seasonal, injectable [facility] Work Phone: 11-01-2013 influenza, seasonal, injectable Adolfo Rosalio REAMING PRESS OPERATOR.FIRE HYDRANT MECHANIC Work Phone: [facility] 11-01-2013 zoster vaccine, live Adolfo C ecil REAMING PRESS OPERATOR.FIRE HYDRANT MECHANIC Work Phone: [facility] 11-04-2012 influenza virus vaccine, unspecified formulation Adolfo Rosalio REAMING PRESS OPERATOR.FIRE HYDRANT MECHANIC Work Phone: [facility] 02-15-2009 pneumococcal polysaccharide vaccine, 23 valent Adolfo Rosalio REAMING PRESS OPERATOR.FIRE HYDRANT MECHANIC Work Phone: [facility] 12-16-2008 influenza virus vaccine, unspecified formulation Adolfo Rosalio REAMING PRESS OPERATOR.FIRE HYDRANT MECHANIC Work Phone: [facility] Work Phone: 12-23-2007 influenza virus vaccine, unspecified formulation Adolfo Rosalio REAMING PRESS OPERATOR.FIRE HYDRANT MECHANIC Work Phone: [facility] Work Phone: 11-21-2005 tetanus toxoid, reduced diphtheria toxoid, and acellular pertussis vaccine, adsorbed Daolfo Rosalio REAMING PRESS OPERATOR.FIRE HYDRANT MECHANIC Work Phone: [facility] Work Phone: Payers Date Payer Category Payer Medicare MEDICARE MEDICAR E A AND B [id number] 2008-Present [phone] [place] [address] Medicare [id number] 2008 Medicare MEDICARE MEDICAR E A AND B [id number] 2008-Present [phone] [place] [address] Medicare [id number] 2008 Medicare [id number] 2005 Private Health Insurance CIGD[employer]ILA WONG PPO [id number] 2005-Present [phone] [address] [place] [address] PPO [id number] 2005 Private Health Insurance CIGDALILA LERNERA PPO [id number] 2005-Present [phone] [address] [place] [address] PPO [id number] 2005 Private Health Insurance [id number] Unknown Social History Date Type Detail Facility Start: 05-09-2022 End: 10-10-2022 Alcohol Use Former smoker [facility] [employer] [facility] [employer] Work Phone: Clinical Notes 06-03-2013 to 12-24-2022 Telephone Encounter - Luke Baregr MD - 12/24/2022 5:04 PM ESTTelephone Encounter [...] transportation problems. Pt also stated being in [facility] ER and had fluid drained from abdomin. Offered to move appt up to this week or next. Pt declined, stating He will keep the appt that is scheduled. Luz Sykes LPN documented in this encounter [facility] 10-14-2022 Note HNO ID: [id number] Author: Luke Barger MD Service: ? Author [...] been taking. Pt here today for a [facility] ED follow up. Pt was started on Lasix 40 mg daily on 10/07/22 due to having issues with urine retention. He still has swelling in his feet and ankles. It does not improve over night. He states he was having some pain in the legs, took some Tylenol which helped. He was in [place] from Feb to Fe after having heart attack. His daughter lives with him. Depression: pt was on lexapro but stated it was stopped while he was in the skilled nursing. He would like to go back on it. He is feeling depressed. Denies SI/HI. He says he has an appt in 2 days with someone at [facility] for his ascites. Pt presented to [facility] ED on 10/04/22 with shortness of breath. [facility] ED visit: HPI History of Present [...] INSJ IO LENS PROSTH W/O ECP Bilateral [facility] Family History FAMILY HISTORY Problem Relation Age of Onset Stroke Mother other (cirrhosis) Father Diabetes Br (more content not included)... [facility] 10-14-2022 Instructions Luke Barger MD - [...] been taking. Pt here today for a [facility] ED follow up. Pt was started on Lasix 40 mg daily on 10/07/22 due to having issues with urine retention. He still has swelling in his feet and ankles. It does not improve over night. He states he was having some pain in the legs, took some Tylenol which helped. He was in [place] from Feb to Mar after having heart attack. His daughter lives with him. Depression: pt was on lexapro but stated it was stopped while he was in the skilled nursing. He would like to go back on it. He is feeling depressed. Denies SI/HI. He says he has an appt in 2 days with someone at [facility] for his ascites. Pt presented to [facility] ED on 10/04/22 with shortness of breath. [facility] ED visit: HPI History of Present [...] INSJ IO LENS PROSTH W/O ECP Bilateral [facility] Family History FAMILY HISTORY Problem Relation [...] Completed HPV VACCINE Aged Out Data reviewed [facility] ER reports ASSESSMENT/PLAN: 1. Hypothyroidism, unspecified [...] Past Histories independently gathered by the clinical student support services director and the remaining scribed note accurately describes [...] calls to report he was at the [facility] ER 10/05 for SOB and retaining [...] [facility] 05-09-2022 Note HNO ID: [id number] Author: Luke Barger MD Service: ? Author Type: Physician Type: Progress Notes Filed: 05/09/2022 5:21 PM Note Text: Chief Complaint Patient presents with: SNF follow up HPI Richard Vargas is a 76 year old male who presents here today for a SNF follow up. Pt here today for a SNF f/u. Pt admitted into [facility] on 03/06/22 with increased sob and confusion. Pt discharged on 03/13/22 to [place]. Pt d/c home on 04/11/22. Daughter lives [...] 2 L at bedtime. Receives supplies through [employer]. Former smoker, quit in 2019. Falls - Has had several falls over the past year. Denies any new falls he believes since being d/c from [place] on 04/11/22. Generally uses a walker/rollator or wheelchair. Pt states that when he was a [place], [facility] came out 2-3 x per week [...] - Requested for PT OT eval and director social to assist with discharge planning 13. Pancytopenia -due to chronic liver disease, monitoring with daily CBCs Past medical history, appointments, medications, allergies reviewed. Previous Medical History PAST MEDICAL HISTORY (more content not included)... [facility] 05-09-2022 Instructions Lucretia Arriaza Ma - 05/09/2022 10:44 AM EDT Schedule follow up with Dr. Hdez (Real Estate Assistant/GI) who you seen at [facility]. They will review your stomach and liver issues. Phone #: [phone]. Follow up in 1 month. Lexapro prescription [...] for a SNF f/u. Pt admitted into [facility] on 03/06/22 with increased sob and confusion. Pt discharged on 03/13/22 to [place]. Pt d/c home on 04/11/22. Daughter lives [...] to himself when he remembers. Follows with [facility], wants to get new [...] 2 L at bedtime. Receives supplies through [employer]. Former smoker, quit in 2019. Falls - Has had several falls over the past year. Denies any new falls he believes since being d/c from [place] on 04/11/22. Generally uses a walker/rollator or wheelchair. Pt states that when he was a [place], [facility] came out 2-3 x per week [...] - Requested for PT OT eval and director social to assist with discharge planning 13. Pancytopenia [...] INSJ IO LENS PROSTH W/O ECP Bilateral [facility] Family History FAMILY HISTORY Problem Relation [...] SCREENING Completed PNEUMOCOCCAL: 65+ Completed Data reviewed [facility] documents ASSESSMENT/PLAN: 1. Hospital discharge follow-up [...] Past Histories independently gathered by the clinical student support services director and the remaining scribed note accurately describes [...] medication list. Can this be sent to [facility] pharmacy in [place]. Patient believes he misplaced that RX and can not find the medication, he believes he threw them away in all house cleaning. Patient has been identified by name and birthdate. Person calling: self Call patient at: at home [phone] (home) [phone] (cell) Was an appointment scheduled: No Closing statement: Results or non-symptom based questions: Thank you for calling [facility], your call will be returned within the next business day. PVPower documented in this encounter [facility] 04-25-2022 Note HNO ID: [id number] Author: Bandar Cardona, GENESIS Service: ? Author Type: DRAPERY HEAD FORMER Type: Progress Notes Filed: 04/25/2022 9:17 AM Note Text: 1. Controlled type 2 diabetes mellitus with complication, without long-term current use of insulin (HCC) Risk of diabetic changes and vision loss can be minimized by tight control of blood sugar, blood pressure, and cholesterol levels. Educated patient to continue care with primary care doctor and/or braided rug maker to maintain optimum levels as they are [...] Cardona, OD April 25, 2022 9:16 AM [facility] 04-25-2022 History of Presen t illness Narrative 1. Controlled type 2 diabetes mellitus with complication, without long-term current use of insulin (HCC) Risk of diabetic changes and vision loss can be minimized by tight control of blood sugar, blood pressure, and cholesterol levels. Educated patient to continue care with primary care doctor and/or braided rug maker to maintain optimum levels as they are [...] be sent today. Please call him at [phone] when sent. Patient has been identified by [...] [facility] 01-24-2022 Note HNO ID: [id number] Author: Luke Barger MD Service: ? Author [...] back pain without sciatica, was sent to [facility] ER by [facility]. Xrays done with report below. ER [...] INSJ IO LENS PROSTH W/O ECP Bilateral [facility] Family History FAMILY HISTORY Problem [...] gabapentin (NEURONTIN) 300 (more content not included)... [facility] 01-24-2022 History of Presen t illness [...] back pain without sciatica, was sent to [facility] ER by [facility]. Xrays done [...] INSJ IO LENS PROSTH W/O ECP Bilateral [facility] Family History FAMILY HISTORY Problem Relation Age [...] Past Histories independently gathered by the clinical student support services director and the remaining scribed note accurately describes [...] Please advise and return his call at [phone] Called and left a detailed voicemail notifying [...] for his arthritis ? Contact patient at [phone]. Mariah José Pss documented in this encounter [facility] 12-02-2021 History of Presen t illness Narrative Subjective The history is provided by the patient and a relative. No business analyst sales operations was used. HPI Richard Vargas is a [...] have confirmed and edited as necessary, the [facility] Review of Systems Constitutional: Negative for chills [...] and lack of investigative tools available at [facility], recommend patient be seen at nearest ED for further work up ERpassport sent to [place] [facility]. Diagnosis and treatment plan were discussed [...] INSJ IO LENS PROSTH W/O ECP Bilateral [facility] ALLERGIES Aloe Vera and Diclofenac [...] bedtime. Filomena Allen APRN.CNP Pharmacy verified in [facility] Patient has been identified by name [...] INSJ IO LENS PROSTH W/O ECP Bilateral [facility] CURRENT MEDICATIONS Current Outpatient Medications [...] entered by the nurse and reviewed by la Nursing Notes: Radha Arenas LPN 09/04/2021 1:22 [...] anesthetic care. This will be done in [place] Diagnoses: (L81.9) Pigmented skin lesion of uncertain [...] [facility] 10-05-2021 Instructions Luzmaria Ruiz APRN.FIRE HYDRANT MECHANIC - 10/05/2021 9:01 AM EDT PATIENT PREOPERATIVE INSTRUCTIONS Geovanny Baca MD has scheduled you for your procedure at this surgery center: [facility]: [phone] -- [address] [address]. Please read below carefully for your personalized [...] Procedures: - YOU MUST HAVE A RESPONSIBLE RAILROAD ENGINEER TAKE YOU HOME. A SEISMIC SURVEY ASSISTANT OR INTERNATIONAL NURSE CANNOT BE MADE A RESPONSIBLE RAILROAD ENGINEER. - We recommend that a responsible person [...] Advance Directive, please fax a copy to [phone] or email to for it to be [...] pain, CHF, congenital heart defect, DVT/PE, recent MD, murmur/valvular heart disease, open heart surgery and [...] INSJ IO LENS PROSTH W/O ECP Bilateral [facility] FAMILY HISTORY Problem Relation Age of [...] or any previous visit (from the past 79743 hour(s)). Assessment Acquired hypothyroidism Assessment: stable on [...] sleepy during the daytime STOP-Bang Score: 7 [id number] Score: Age: >=75 Sex: male CHF history: No Hypertension history: Yes Stroke/TIA/thromboembolism history: No Vascular disease history: No Diabetes history: Yes [id number] Score: 4 ARISCAT Score: Age: 51-80 Preoperative [...] and consent discussed: yes. Patient / Responsible Democrat agrees to proceed: yes Patient / Surrogate [...] to your office visit today with the [facility]. Instructions After Skin Excison [...] you should contact our office immediately @ [phone] and ask to be transferred to the [...] If you do not have a responsible residential recycle driver (family member or friend) with you [...] preparation solution at your local [facility] 01/2019 Bowel Preparation Instructions for: [...] LENS PROSTH W/O ECP Bilateral [facility] Current Outpatient Medications Medication Sig meloxicam (MOBIC) [...] entered by the nurse and reviewed by la Nursing Notes: aRdha Arenas LPN 09/04/2021 1:22 PM Signed REVIEW [...] anesthetic care. This will be done in [place] Diagnoses: (L81.9) Pigmented skin lesion of uncertain [...] butt cheek. Would like to go to Electric Welder Helper or Surgeon. Past medical history, appointments, [...] INSJ IO LENS PROSTH W/O ECP Bilateral [facility] Family History FAMILY HISTORY Problem Relation [...] Past Histories independently gathered by the clinical student support services director and the remaining scribed note accurately describes [...] MD Patient reports he was seen in [facility] on 08/24/21 after a fall. He [...] seen on 09/04. Requesting [facility] in [place]. Please call patient with advise. Thank you. [...] check for blood. 3.) [facility] [place] 4.) Keep scheduled appointment with Pulmonology at [place]. 5.) Continue to work on eating a [...] INSJ IO LENS PROSTH W/O ECP Bilateral [facility] ALLERGIES: Aloe Vera and Diclofenac [...] not work. Will be seeing pulmonology at [facility] in [place] in August. Quit smoking 3 years ago. [...] INSJ IO LENS PROSTH W/O ECP Bilateral [facility] ALLERGIES Aloe Vera and Diclofenac [...] discussed and patient voices understanding. Filomena Allen APRN.FIRE HYDRANT MECHANIC This note was partially generated using [employer] recognition system. Note was reviewed for accuracy. There may be minor misspellings or grammar miscues with [employer] voice recognition. documented in this encounter [facility] 06-14-2021 History of Presen t illness Narrative [facility] Enrollment Provider Action/FYI: 3 attempts to reach patient in 2020 for enrollment unsuccessful. frestylt [employer] introduction message sent recently- not read Fifth attempt to reach patient Patient referred by: [facility] Debbie Contact made with patient: No - 2nd attempt to reach patient, left another message: Hi my name is Kacie Wood RN and I am calling from the [facility] on behalf of your PCP, Luke Barger MD. We are excited to share with you a new program to help you manage your health. Please call me back at [phone] . I hope you can take the time to speak with me. (Keep encounter open for additional two business days in case patient calls back. Close encounter if no response by end of second business day) Closing: Could not reach the patient after two attempted outreaches. Floor Associate to retry patient in one week. 5 [...] of this encounter (statuses as of 10/18/2021) [place] [id number] History of Past illness Narrative* Problem Noted [...] of this encounter (statuses as of 12/25/2022) [facility] Diagnosis Hypothyroidism, unspecified type- Primary Essential hypertension Unspecified essential hypertension Acquired hypothyroidism Unspecified hypothyroidism Controlled diabetes mellitus type 2 with complications, unspecified whether care home insulin use (HCC) Mixed hyperlipidemia BPH with obstruction/lower urinary tract symptoms Hypertrophy of prostate with urinary obstruction and other lower urinary tract symptoms (LUTS) documented [facility] Diagnosis Medicare annual wellness [...] agitans [facility] Diagnosis Acute right-sided low back pain without sciatica- Primary Right hip pain Pain in joint, pelvic region and thigh Seborrheic keratosis Other seborrheic keratosis Difficulty sleeping Sleep disturbance, unspecified Atypical mole Benign neoplasm of skin, site unspecified [facility] Diagnosis Pigmented skin lesion of uncertain nature- Primary Atypical mole Benign neoplasm of skin, site unspecified Encounter for screening for malignant neoplasm of colon Special screening for malignant neoplasms, colon [facility] Diagnosis Skin lesion of back- Primary Unspecified disorder of skin and subcutaneous tissue [facility] Diagnosis Pre-operative examination- Primary [...] thigh [facility] Diagnosis Encounter for screening for malignant neoplasm of colon- Primary Special screening for malignant neoplasms, colon [facility] Diagnosis RLS (restless legs syndrome)- Primary Restless legs syndrome (RLS) documented [facility] Diagnosis Essential hypertension Unspecified essential hypertension RLS (restless legs syndrome) Restless legs syndrome (RLS) documented [facility] Diagnosis Fall, initial encounter- Primary Acute right-sided low back pain without sciatica [facility] Diagnosis Upper back pain- Primary Need for influenza vaccination Need for prophylactic vaccination and inoculation against influenza Wheezing [facility] Diagnosis RLS (restless legs syndrome) Restless legs syndrome (RLS) [facility]* Diagnosis Controlled type 2 diabetes mellitus with complication, without long-term current use of insulin (HCC)- Primary Dry eye syndrome of both eyes Punctate keratitis, bilateral Epiretinal membrane (ERM) of left eye Optic nerve drusen, bilateral Pseudophakia Lens replaced by other means documented [facility] Diagnosis Hospital discharge follow-up- [...] unspecified [facility] Diagnosis Hypothyroidism, unspecified type- [...] chronic respiratory failure documented in this encounter [facility] for referral (narrative)* Outpatient Procedure (Routine) - Authorized Specialty Diagnoses / Procedures Referred By Contac t Referred To Contact [facility] Diagnoses Encounter for screening for malignant neoplasm of colon Procedures COLONOSCOPY DIAGNOSTIC COLONOSCOPY FLX DX W/COLLJ SPEC WHEN Geovanny Long MD [address] [place] [address] [facility] [place] [address] [place] [address] Referral ID Status Reason Start Date Expiration Date Visits Requested Visits Authorized [id number] Authorized Auto-Generat ed Referral 09/04/2021 09/04/2022 1 1 [facility] for referral (narrative)* Outpatient Procedure (Routine) - Closed Specialty Diagnoses / Procedures Referred By Contac t Referred To Contact [facility] Diagnoses Encounter for screening for malignant neoplasm of colon Procedures COLONOSCOPY DIAGNOSTIC COLONOSCOPY FLX DX W/COLLJ SPEC WHEN Geovanny Long MD [address] [place] [address] [address] Referral ID Status Reason Start Date Expiration Date V isits Requested Visits Authorized [id number] Closed Auto-Generate d Referral 09/04/2021 09/04/2022 1 1 [facility] Outpatient Procedure (Routine) - Closed Specialty Diagnoses / Procedures Referred By [place] white Referred To Contact [facility] Diagnoses Encounter for screening for malignant neoplasm of colon Procedures COLONOSCOPY DIAGNOSTIC COLONOSCOPY FLX DX W/COLLJ SPEC WHEN [facility] Geovanny Baca MD [address] [place] [address] [facility] [place] [address] [place] [address] Referral ID Status Reason Start Date Expiration Date V isits Requested Visits Authorized [id number] Closed Auto-Generate d Referral 09/04/2021 09/04/2022 1 [...] Documents on File Type Date Recorded Patient Apron Trimmer Expl anation Advance Directive(s) 09/23/2008 9:59 PM Documents on File Type Date Recorded Patient Apron Trimmer Expl anation Advance Directive(s) 09/23/2008 9:59 PM [...] lesion Procedures CONSULT TO DERMATOLOGY Filomena Allen APRN.FIRE HYDRANT MECHANIC [address] [place] [address] Referral ID Status Reason Start Date Expiration Date Visits Requested Visits Authorized [id number] Ref Not Required PCP Requested Referral 07/12/2021 07/12/2022 1 1 Specialty Diagnoses / Procedures Referred By Contac t Referred To Contact General Surgery Diagnoses Seborrheic keratosis Atypical mole Procedures CONSULT TO GENERAL SURGERY OFFICE/OUTPATIENT [facility] 60-74 MINUTES Luke Barger MD [address] [place] [address] Referral ID Status Reason Start Date Expiration Date V isits Requested Visits Authorized [id number] Closed PCP Requested Referral 09/04/2021 09/04/2022 1 [...] mole Procedures CONSULT TO GENERAL SURGERY OFFICE/OUTPATIENT [facility] 60-74 MINUTES Luke Barger MD [address] [place] [address] Referral ID Status Reason Start Date Expiration Date V isits Requested Visits Authorized [id number] Closed PCP Requested Referral 09/04/2021 09/04/2022 1 [...] or prosecute any alcohol or drug abuse patient.[facility] the event this information is protected by [...] Care Teams (unrecognized sec tion and content) Die Finisher Forging Relationship Specialty Start Date End Date Luke Barger MD [address] [place] [address] PCP - General Family Practice 05/22/18 Die Finisher Forging Relationship Specialty Start Date End Date Luke Barger MD [facility] [place] [address] PCP - General Family Practice 05/22/18 Die Finisher Forging Relationship Specialty Start Date End Date Luke Barger MD [address] [place] [address] PCP - General Family Practice 05/22/18 Die Finisher Forging Relationship Specialty Start Date End Date Luke Barger MD [facility] [address] [place] [address] PCP - General Family Practice 05/22/18 Die Finisher Forging Relationship Specialty Start Date End Date Luke Barger MD [address] [facility] [place] [address] PCP - General Family Practice 05/22/18 Die Finisher Forging Relationship Specialty Start Date End Date Luke Barger MD [address] [place] [address] [place] [address] PCP - General Family Practice 05/22/18 Die Finisher Forging Relationship Specialty Start Date End Date Luke Barger MD [address] [place] [address] PCP - General Family Practice 05/22/18 Die Finisher Forging Relationship Specialty Start Date End Date Luke Barger MD [address] [place] [address] PCP - General Family Practice 05/22/18 Die Finisher Forging Relationship Specialty Start Date End Date Luke Barger MD [address] [place] [address] PCP - General Family Practice 05/22/18 Die Finisher Forging Relationship Specialty Start Date End Date Luke Barger MD [address] [place] [address] PCP - General Family Medicine 05/22/18 Die Finisher Forging Relationship Specialty Start Date End Date Luke Barger MD [address] [place] [address] PCP - General Family Medicine 05/22/18 Die Finisher Forging Relationship Specialty Start Date End Date Luke Barger MD [address] [place] [address] PCP - General Family Medicine 05/22/18 Die Finisher Forging Relationship Specialty Start Date End Date Luke Barger MD [address] [place] [address] PCP - General Family Medicine 05/22/18 Die Finisher Forging Relationship Specialty Start Date End Date Luke Barger MD [address] [place] [address] PCP - General Family Medicine 05/22/18 Die Finisher Forging Relationship Specialty Start Date End Date Luke Barger MD [address] [place] [address] PCP - General Family Medicine 05/22/18 Die Finisher Forging Relationship Specialty Start Date End Date Luke Barger MD [address] [place] [address] PCP - General Family Medicine 05/22/18 Die Finisher Forging Relationship Specialty Start Date End Date Luke Barger MD [address] [place] [address] PCP - General Family Medicine 05/22/18 Die Finisher Forging Relationship Specialty Start Date End Date Luke Barger MD [address] [place] [address] PCP - General Family Medicine 05/22/18 Die Finisher Forging Relationship Specialty Start Date End Date Luke Barger MD [address] [place] [address] PCP - General Family Medicine 05/22/18 Die Finisher Forging Relationship Specialty Start Date End Date Luke Barger MD [address] [place] [address] PCP - General Family Medicine 05/22/18 Die Finisher Forging Relationship Specialty Start Date End Date Luke Barger MD [address] [place] [address] PCP - General Family Medicine 05/22/18 (unrecognized sect ion and content) No Status Records FoundNo Status Records Found INFORMATION SOURCE (unrecogn ized section and content) DATE CREATED AUTHOR AUTHOR'S ORGANIZ ATION 12/26/2022 [facility] FOR RECORDS PERTAINING TO PATIENTS WHO [...] BE BASED ON THE PRIMARY CLINICAL RECORDS. [facility] [employer] [facility]. provides no warranty or guarantee of the accuracy or completeness of information in this document.
[2023-03-11 09:40] VITALS: BP 130/57; PULSE 85; RESP 18; TEMP 36.6; O2SAT 96
[2023-03-11] MEDS: Lidocaine 2% (20 ml mdv) 20 ML Vial INFILT (09:48)
[2023-03-11 09:55] VITALS: BP 129/54; PULSE 85; RESP 18; O2SAT 98
[2023-03-11 10:10] VITALS: BP 109/60; PULSE 83; RESP 18; O2SAT 98
--- NOTE | 2023-03-11 10:30 | PRO.PCM_ITS ---
Procedure Report Date of Procedure: 03/11/23 Assessment & Plan Assessment/Plan (1) Ascites: QUALIFIERS: Ascites type: other type Qualified Code(s): R18.8 - Other ascites PLAN: PROCEDURE: Ultrasound guided paracentesis ORDERING PROVIDER: Dr. Bright INDICATION: Male, 77 years old. Ascites. PROVIDER: IVANA Hidalgo TECHNIQUE: The risks, benefits, and alternatives to the procedure were explained to the patient. The specific risks of bleeding, infection, and damage to bowel were detailed and accepted. Witnessed informed consent was obtained. The abdomen was ultrasonographically surveyed. An appropriate pocket of fluid was identified in the right lower quadrant. The skin was prepped with chlorhexidine and sterile field established. 2% lidocaine was used for local anesthetic. Using ultrasound guidance, the peritoneal cavity was accessed with a 5-Tunisian paracentesis needle/catheter system. The trocar was removed. A total of 5500 ml of clear yellow colored fluid was removed from the peritoneal cavity. The catheter was removed and a sterile dressing was applied. The procedure was well tolerated. IMPRESSION: Successful ultrasound-guided paracentesis with right lower quadrant access site. Procedures Radiology Radiology US Procedures: [id number] Paracentesis
[2023-03-11 10:35] VITALS: BP 133/68; PULSE 81; RESP 16; TEMP 36.1; O2SAT 98; BMI 30.2
[2023-03-11] MEDS: 0.9% Saline Lock 10 ML Syringe IV (10:37)
[2023-03-11] MEDS: Albumin Human 25% (100 mL) 25 GM/100 ML BAG IV (10:37)
[2023-03-11] MEDS: Albumin Human 25% (50 mL) 12.5 GM/50 ML IV.SOLN IV (12:00)
[2023-03-11 13:05] VITALS: BP 132/49; PULSE 74; RESP 16; TEMP 36.3; O2SAT 94
== END | disposition home or self-care (01) ==
LOC: US 09:03
PROVIDERS: PCP Family Medicine Geriatric Medicine; Referring Provider Family Medicine Geriatric Medicine; Visit Provider Family Medicine Geriatric Medicine
DX: K74.60 Unspecified cirrhosis of liver (principal)
CPT/HCPCS: 96365; 96366 ×2; 49083; J7050; P9047

== ENCOUNTER → 2023-03-21 | Outpatient (CLI) | payer MEDICARE, OTHER, SELFPAY ==
[2023-03-21 10:33] VITALS: BP 139/77; PULSE 63; RESP 18; TEMP 36.7; O2SAT 97
[2023-03-21] MEDS: Lidocaine 2% (20 ml mdv) 20 ML Vial INFILT (10:38)
[2023-03-21 10:49] VITALS: BP 119/63; PULSE 83; RESP 18; O2SAT 97
[2023-03-21 11:00] VITALS: BP 94/70; PULSE 64; RESP 18; O2SAT 97
--- NOTE | 2023-03-21 11:14 | PCM.OP.PRO ---
Procedure Report Date of Procedure: 03/21/23 Assessment & Plan Assessment/Plan (1) Ascites: QUALIFIERS: Ascites type: other type Qualified Code(s): R18.8 - Other ascites PLAN: PROCEDURE: Ultrasound guided paracentesis ORDERING PROVIDER: Dr. Bright INDICATION: Male, 77 years old. Ascites. PROVIDER: IVANA Hidalgo TECHNIQUE: The risks, benefits, and alternatives to the procedure were explained to the patient. The specific risks of bleeding, infection, and damage to bowel were detailed and accepted. Witnessed informed consent was obtained. The abdomen was ultrasonographically surveyed. An appropriate pocket of fluid was identified in the left lower quadrant. The skin was prepped with chlorhexidine and sterile field established. 2% lidocaine was used for local anesthetic. Using ultrasound guidance, the peritoneal cavity was accessed with a 5-Nigerien paracentesis needle/catheter system. The trocar was removed. A total of 6850 ml of clear yellow colored fluid was removed from the peritoneal cavity. The catheter was removed and a sterile dressing was applied. The procedure was well tolerated. IMPRESSION: Successful ultrasound-guided paracentesis with left lower quadrant access site. Procedures Radiology Radiology US Procedures: [id number] Paracentesis
[2023-03-21] MEDS: 0.9% Saline Lock 10 ML Syringe IV ×3 (11:15→11:39)
[2023-03-21] MEDS: Albumin Human 25% (100 mL) 25 GM/100 ML BAG IV (11:40)
[2023-03-21 11:45] VITALS: BP 152/52; PULSE 76; RESP 16; TEMP 36.7; O2SAT 99; BMI 29.9
[2023-03-21] MEDS: Albumin Human 25% (50 mL) 12.5 GM/50 ML IV.SOLN IV (13:02)
--- OUTSIDE RECORDS SUMMARY | 2023-03-21 13:08 | XMS RPT_ITS | CCD ---
Author Name Unknown Address [address] [place] [address] Organization [facility] Care Team Providers Care Sales Superintendent Name Role Phone SaranyaRadha blanco E Unavailable Ming Garrido Unavailable Physical Therapy, [facility] Unavailable [phone] Bebeto Marrufo Unavailable [phone] Ryan Shine Unavailable Matheus Mills Unavailable [phone] Darrian Martin Unavailable [phone] Mansi Sanabria Unavailable Darrian Martin Unavailable [phone] Eboni Cisse Unavailable Martinez Srinivasan Unavailable Deana Moreland Unavailable Unavailable Kerri Ferreira Unavailable Unavailable Anastasiia Norwood Unavailable Unavailable Unavailable Unavailable Greyson Vazquez MD Unavailable Luke Barger MD Primary Care Provider Luke Barger MD Primary Care Provider uLke Barger MD Primary Care Provider Luke Barger [...] Translations: [ALOE VERA] Drug Allergy 02-24-2014 [facility] (20 sources) Diclofenac; Translations: [DICLOFENAC] Drug Allergy 02-28-2011 Intolerance [facility] Medications Current Medications Medication Drug Class(es) Dates Sig (Normalized) Sig (Original) [id number] 200 actuat albuterol 0.09 mg/actuat metered dose [...] 88.91 kg Luke Barger MD Work Phone: [facility] 10-14-2022 18:04-0400 Diastolic blood pressure 80 mm[Hg] Luke Barger MD Work Phone: [facility] 10-14-2022 18:04-0400 Heart rate 72 /min Luke Barger MD Work Phone: [facility] 10-14-2022 18:04-0400 Respiratory rate 18 /min Luke Barger MD Work Phone: [facility] 10-14-2022 18:04-0400 Systolic blood pressure 130 mm[Hg] Luke Barger MD Work Phone: [facility] 05-09-2022 10:11-0400 Body weight 85.19 kg Luke Barger MD Work Phone: [facility] 05-09-2022 10:11-0400 Diastolic blood pressure 64 mm[Hg] Luke Barger MD Work Phone: [facility] 05-09-2022 10:11-0400 Heart rate 76 /min Luke Barger MD Work Phone: [facility] 05-09-2022 10:11-0400 Respiratory rate 20 /min Luke Barger MD Work Phone: [facility] 05-09-2022 10:11-0400 SaO2% (BldA) [Mass fraction] 99 % Luke Barger MD Work Phone: [facility] 05-09-2022 10:11-0400 Systolic blood pressure 130 mm[Hg] Luke Barger MD Work Phone: [facility] 01-24-2022 08:07-0500 Body temperature 98.2 [degF] Luke Barger MD Work Phone: [facility] 01-24-2022 08:07-0500 Body weight 105.69 kg Luke Barger MD Work Phone: [facility] 01-24-2022 08:07-0500 Diastolic blood pressure 90 mm[Hg] Luke Barger MD Work Phone: [facility] 01-24-2022 08:07-0500 Heart rate 78 /min Luke Barger MD Work Phone: [facility] 01-24-2022 08:07-0500 Respiratory rate 20 /min Luke Barger MD Work Phone: [facility] 01-24-2022 08:07-0500 SaO2% (BldA) [Mass fraction] 94 % Luke Barger MD Work Phone: [facility] 01-24-2022 08:07-0500 Systolic blood pressure 150 mm[Hg] Luke Barger MD Work Phone: [facility] 12-02-2021 12:17-0400 Body temperature 97.59 [degF] Felicita Celsa VOCATIONAL REHABILITATION SPECIALIST.SAMPLE MAKER HAND Work Phone: [facility] 12-02-2021 12:17-0400 Body weight 99.79 kg Felicita Celsa VOCATIONAL REHABILITATION SPECIALIST.SAMPLE MAKER HAND Work Phone: [facility] 12-02-2021 12:17-0400 Diastolic blood pressure 76 mm[Hg] Felicita Celsa VOCATIONAL REHABILITATION SPECIALIST.SAMPLE MAKER HAND Work Phone: [facility] 12-02-2021 12:17-0400 Heart rate 94 /min Felicita Celsa VOCATIONAL REHABILITATION SPECIALIST.SAMPLE MAKER HAND Work Phone: [facility] 12-02-2021 12:17-0400 Respiratory rate 21 /min Felicita Celsa VOCATIONAL REHABILITATION SPECIALIST.SAMPLE MAKER HAND Work Phone: [facility] 12-02-2021 12:17-0400 SaO2% (BldA) [Mass fraction] 95 % Felicita Celsa VOCATIONAL REHABILITATION SPECIALIST.SAMPLE MAKER HAND Work Phone: [facility] 12-02-2021 12:17-0400 Systolic blood pressure 182 mm[Hg] Felicita Celsa VOCATIONAL REHABILITATION SPECIALIST.SAMPLE MAKER HAND Work Phone: [facility] 11-15-2021 18:44-0400 Body temperature 97.2 [degF] Carmen Praisler-Wood VOCATIONAL REHABILITATION SPECIALIST.SAMPLE MAKER HAND Work Phone: [facility] 11-15-2021 18:44-0400 Body weight 96.07 kg Carmen Praisler-Wood VOCATIONAL REHABILITATION SPECIALIST.SAMPLE MAKER HAND Work Phone: [facility] 11-15-2021 18:44-0400 Diastolic blood pressure 78 mm[Hg] Carmen Praisler-Wood VOCATIONAL REHABILITATION SPECIALIST.SAMPLE MAKER HAND Work Phone: [facility] 11-15-2021 18:44-0400 Heart rate 79 /min Carmen Praisler-Wood VOCATIONAL REHABILITATION SPECIALIST.SAMPLE MAKER HAND Work Phone: [facility] 11-15-2021 18:44-0400 Respiratory rate 18 /min Carmen Praisler-Wood VOCATIONAL REHABILITATION SPECIALIST.SAMPLE MAKER HAND Work Phone: [facility] 11-15-2021 18:44-0400 SaO2% (BldA) [Mass fraction] 97 % Carmen Praisler-Wood VOCATIONAL REHABILITATION SPECIALIST.SAMPLE MAKER HAND Work Phone: [facility] 11-15-2021 18:44-0400 Systolic blood pressure 156 mm[Hg] Carmen Praisler-Wood VOCATIONAL REHABILITATION SPECIALIST.SAMPLE MAKER HAND Work Phone: [facility] 10-17-2021 09:59-0400 Diastolic blood pressure 71 mm[Hg] Geovanny Baca MD Work Phone: [facility] 10-17-2021 09:59-0400 Heart rate 65 /min Geovanny Baca MD Work Phone: [facility] 10-17-2021 09:59-0400 Respiratory rate 28 /min Geovanny Baca MD Work Phone: [facility] 10-17-2021 09:59-0400 SaO2% (BldA) [Mass fraction] 99 % Geovanny Bcaa MD Work Phone: [facility] 10-17-2021 09:59-0400 Systolic blood pressure 166 mm[Hg] Geovanny Baca MD Work Phone: [facility] 10-17-2021 09:45-0400 Body temperature 98.6 [degF] Geovanny Baca MD Work Phone: [facility] 10-05-2021 08:45-0400 Body height 166.4 cm Pacc 1 Work Phone: [facility] 10-05-2021 08:45-0400 Body temperature 97 [degF] Pacc 1 Work Phone: [facility] 10-05-2021 08:45-0400 Body weight 97.52 kg Pacc 1 Work Phone: [facility] 10-05-2021 08:45-0400 Diastolic blood pressure 68 mm[Hg] Pacc 1 Work Phone: [facility] 10-05-2021 08:45-0400 Heart rate 67 /min Pacc 1 Work Phone: [facility] 10-05-2021 08:45-0400 Respiratory rate 16 /min Pacc 1 Work Phone: [facility] 10-05-2021 08:45-0400 SaO2% (BldA) [Mass fraction] 93 % Pacc 1 Work Phone: [facility] 10-05-2021 08:45-0400 Systolic blood pressure 134 mm[Hg] Pacc 1 Work Phone: [facility] 09-04-2021 13:16-0400 Body height 167.6 cm Geovanny Baca MD Work Phone: [facility] 07-19-2022 13:16-0400 Body temperature 97 [degF] Geovanny Baca MD Work Phone: [facility] 09-04-2021 13:16-0400 Body weight 96.62 kg Geovanny Baca MD Work Phone: [facility] 09-04-2021 13:16-0400 Diastolic blood pressure 62 mm[Hg] Geovanny Baca MD Work Phone: [facility] 09-04-2021 13:16-0400 Heart rate 99 /min Geovanny Baca MD Work Phone: [facility] 09-04-2021 13:16-0400 SaO2% (BldA) [Mass fraction] 93 % Geovanny Baca MD Work Phone: [facility] 09-04-2021 13:16-0400 Systolic blood pressure 156 mm[Hg] Geovanny Baca MD Work Phone: [facility] 09-04-2021 08:43-0400 Body weight 97.52 kg Luke Barger MD Work Phone: [facility] 09-04-2021 08:43-0400 Diastolic blood pressure 74 mm[Hg] Luke Barger MD Work Phone: [facility] 09-04-2021 08:43-0400 Heart rate 62 /min Luke Barger MD Work Phone: [facility] 09-04-2021 08:43-0400 Respiratory rate 16 /min Luke Barger MD Work Phone: [facility] 09-04-2021 08:43-0400 Systolic blood pressure 138 mm[Hg] Luke Barger MD Work Phone: [facility] 07-12-2021 14:22-0400 Body height 169 cm Filomena Allen VOCATIONAL REHABILITATION SPECIALIST.SAMPLE MAKER HAND Work Phone: [facility] 07-12-2021 14:22-0400 Body weight 102.06 kg Filomena Allen VOCATIONAL REHABILITATION SPECIALIST.SAMPLE MAKER HAND Work Phone: [facility] 07-12-2021 14:22-0400 Diastolic blood pressure 70 mm[Hg] Filomena Allen VOCATIONAL REHABILITATION SPECIALIST.SAMPLE MAKER HAND Work Phone: [facility] 07-12-2021 14:22-0400 Heart rate 65 /min Filomenajuventino Allen VOCATIONAL REHABILITATION SPECIALIST.SAMPLE MAKER HAND Work Phone: [facility] 07-12-2021 14:22-0400 Respiratory rate 16 /min Filomenajuventino Allen VOCATIONAL REHABILITATION SPECIALIST.SAMPLE MAKER HAND Work Phone: [facility] 07-12-2021 14:22-0400 SaO2% (BldA) [Mass fraction] 95 % Filomena Tiffany VOCATIONAL REHABILITATION SPECIALIST.SAMPLE MAKER HAND Work Phone: [facility] 07-12-2021 14:22-0400 Systolic blood pressure 160 mm[Hg] Filomenajuventino Allen VOCATIONAL REHABILITATION SPECIALIST.SAMPLE MAKER HAND Work Phone: [facility] 01-13-2018 13:06-0500 BMI (Body Mass Index) 35.7 kg/m2 [facility] Work Phone: 01-13-2018 13:06-0500 Body Temperature 98.7 [degF] [facility] Work Phone: Encounters Encounter [...] cleared fda spec home use Richard Agee VOCATIONAL REHABILITATION SPECIALIST.CENTRAL LAB TECHNICIAN Work Phone: Start: 10-17-2021 Colonoscopy Carmen Rock VOCATIONAL REHABILITATION SPECIALIST.SAMPLE MAKER HAND Work Phone: Start: 07-12-2021 Adult depression screening assessment Filomena Allen VOCATIONAL REHABILITATION SPECIALIST.SAMPLE MAKER HAND Work Phone: Start: 07-21-2019 End: 07-21-2019 Blood [...] 05-22-2018 Adult depression screening assessment Adolfo Ryder VOCATIONAL REHABILITATION SPECIALIST.SAMPLE MAKER HAND Work Phone: Start: 01-09-2018 End: 01-09-2018 Emergency Department Summary Comments: See Note; NOTES: [facility] [place] Medical Records Department [address] [place] [address] Emergency Department Summary 01/09/18 0645 MR#: [id number] Acct: [id number] Name: RICHARD VARGAS Rep #: [id number] : 1945 72 From: Ermelinda Deng MD [...] Parkinson's disease This note was generated with [employer] dictation software. It may contain incorrect words, spelling, and punctuation that were not noted in review of the chart prior to signing ED Disposition - Plan for ED Patient: Chief Complaint: Syncope Referrals: Radha Torres, AUDIOLOGY TECHNICIAN-C [Primary Care Provider] - What to do if you have Problems For any increased pain, shortness of breath, bleeding, nausea or vomiting, chest pain, or any unexpected problems, contact your Primary Care Provider. Call [facility] ([phone]) or report to the closest Emergency Room. Call 911 if necessary. 01/09/18 0753 <Electronically signed by Ermelinda Deng MD> Date Ermelinda Deng MD Cosigner Signature (If Indicated): Date CC: Radha Torres Start: 01-09-2018 End: 01-09-2018 Brain/Head without Contrast Comments: See Note; NOTES: [facility] [place] Imaging Services [address] [place] [id number] Brain/Head without Contrast MR#: [id number] Acct: [id number] Name: RICHARD VARGAS Rep #: [id number] : 1945 M 72 From: James Faustin MD PCP: Radha Torres NP Status: REG ER Study: Brain/Head without Contrast Date of Exam: 01/09/18 Exam# [id number] Ordering Dr: Ermelinda Deng MD STUDY: CT [...] CC: Radha Torres NP; Ermelinda Deng MD Blender Machine Operator: Signed Radha Torres Start: 01-09-2018 End: 01-09-2018 Chest 1 View Comments: See Note; NOTES: [facility] [place] Imaging Services [address] [place] [id number] Chest 1 View MR#: [id number] Acct: [id number] Name: RICHARD VARGAS Rep #: [id number] : 1945 M 72 From: James Faustin MD PCP: Radha Torres NP Status: REG ER Study: Chest 1 View Date of Exam: 01/09/18 Exam# [id number] Ordering Dr: Ermelinda Deng MD STUDY: X-RAY [...] CC: Radha Torres NP; Ermelinda Deng MD Blender Machine Operator: Signed Radha Torres Start: 02-26-2017 End: 02-26-2017 Chest WITH Contrast Comments: See Note; NOTES: [facility] [place] Imaging Services [address] [place] [id number] Chest WITH Contrast MR#: [id number] Acct: [id number] Name: RICHARD VARGAS Rep #: [id number] : 1945 M 71 From: Amadeo Dc MD PCP: Cinyd Maria DO Status: REG CLI Study: Chest WITH Contrast Date of Exam: 02/26/17 Exam# [id number] Ordering Dr: Cindy Maria DO STUDY: CT [...] spleen. Although not fully included in the [id number], spleen appears upper limits of normal size. [...] Service support , CC: Cindy Maria DO Blender Machine Operator: Signed Cindy Maria Work Phone: Start: 02-27-2016 End: 02-27-2016 Emergency Department Summary Comments: See Note; NOTES: [facility] [place] Medical Records Department [address] [place] [address] Emergency Department Summary MR#: [id number] Acct: [id number] Name: RICHARD VARGAS Rep #: [id number] : 1945 70 From: Richard Miranda MD PCP: Piyush Sanabria Status: [facility] ER DATE OF SERVICE: 02/27/2016 CHIEF [...] Discharge. Richard Miranda MD T: NTS JOB: [id number] 02/27/16 033 <Electronically signed by Richard Miranda MD> Date Richard Miranda MD Cosigner Signature (If Indicated): Date CC: Piyush Sanabria Date Dictated: 02/27/16150 Date Transcribed: 02/27/16150 Blender Machine Operator: Corey Torres Start: 02-27-2016 End: 02-27-2016 Discharge Instruction Comments: See Note; NOTES: [facility] [place] Medical Records Department [address] [place] [address] Discharge Instruction 02/27/16 0149 MR#: [id number] Acct: [id number] Name: SOHANRICHARD Rep #: [id number] : 1945 70 From: Richard Miranda MD [...] your Primary Care Provider. Call [facility] ([phone]) or report to the closest Emergency Room. Call 911 if necessary. 02/27/16 0154 <Electronically signed by Richard Miranda MD> Date Richard Ruth MD Cosigner Signature (If Indicated): Date CC: Piyush Torres Start: 11-30-2015 Biopsy of bone marrow Radha Torres Plan of Treatment Date Care Activity Detail Author Start: 07-19-2029 Urine microalbumin profile [facility] Start: 10-17-2026 Colonoscopy COLONOSCOPY [facility] Start: 10-17-2026 COLORECTAL CANCER SCREENING COLORECTAL CANCER SCREENING [facility] Start: 10-15-2023 ANNUAL PCP TEAM CHRONIC DISEASE VISIT ANNUAL PCP TEAM CHRONIC DISEASE VISIT [facility] Start: 05-14-2023 Hemoglobin A1c/Hemoglobin.total in Blood HbA1C [facility] Start: 05-10-2023 ANNUAL PCP TEAM CHRONIC DISEASE VISIT ANNUAL PCP TEAM CHRONIC DISEASE VISIT [facility] Start: 04-26-2023 Hepatitis C antibody, confirmatory test DILATED RETINAL EXAM [facility] Start: 01-24-2023 ANNUAL PCP TEAM CHRONIC DISEASE VISIT ANNUAL PCP TEAM CHRONIC DISEASE VISIT [facility] Start: 11-09-2022 Hemoglobin A1c/Hemoglobin.total in Blood HBA1C [facility] Start: 10-18-2022 Influenza vaccination [facility] Start: 10-14-2022 End: 12-14-2022 CBC panel - Blood by Automated count CBC Lab Routine Essential hypertension Expected: 10/14/2022 (Approximate), Expires: 12/14/[address] [facility] Work Phone: Immunizations Immunization Date Immunization Notes Care Provider Georgina keller 01-24-2022 influenza, high-dose , quadrivalent vaccine (FLUZONE HIGH DOSE QUADRIVALENT) Luke Barger MD Work Phone: [facility] 01-24-2022 influenza virus vaccine, unspecified formulation Filomena Allen VOCATIONAL REHABILITATION SPECIALIST.SAMPLE MAKER HAND Work Phone: [facility] 11-19-2019 influenza, high-dose , quadrivalent vaccine (FLUZONE HIGH DOSE QUADRIVALENT) Adolfo Ryder APRN.SAMPLE MAKER HAND Work Phone: [facility] 07-20-2019 tetanus toxoid, reduced diphtheria toxoid, and acellular pertussis vaccine, adsorbed Adolfo Caldwellil VOCATIONAL REHABILITATION SPECIALIST.SAMPLE MAKER HAND Work Phone: [facility] Work Phone: 11-06-2018 influenza, high dose seasonal, preservative-free Adolfo Rosalio VOCATIONAL REHABILITATION SPECIALIST.SAMPLE MAKER HAND Work Phone: [facility] 02-18-2016 tetanus and diphther ia toxoids, adsorbed, preservative free, for adult use (2 Lf of tetanus toxoid and 2 Lf of diphtheria toxoid) [facility] Work Phone: 04-13-2015 pneumococcal conjuga te vaccine, 13 valent Adolfo Rosalio VOCATIONAL REHABILITATION SPECIALIST.SAMPLE MAKER HAND Work Phone: [facility] Work Phone: 12-20-2014 influenza, high dose seasonal, preservative-free Adolfo Rosalio VOCATIONAL REHABILITATION SPECIALIST.SAMPLE MAKER HAND Work Phone: [facility] 02-17-2014 influenza, seasonal, injectable [facility] Work Phone: 11-01-2013 influenza, seasonal, injectable Adolfo Rosalio VOCATIONAL REHABILITATION SPECIALIST.SAMPLE MAKER HAND Work Phone: [facility] 11-01-2013 zoster vaccine, live Adolfo C ecil VOCATIONAL REHABILITATION SPECIALIST.SAMPLE MAKER HAND Work Phone: [facility] 11-04-2012 influenza virus vaccine, unspecified formulation Adolfo Rosalio VOCATIONAL REHABILITATION SPECIALIST.SAMPLE MAKER HAND Work Phone: [facility] 02-15-2009 pneumococcal polysaccharide vaccine, 23 valent Adolfo Rosalio VOCATIONAL REHABILITATION SPECIALIST.SAMPLE MAKER HAND Work Phone: [facility] 12-16-2008 influenza virus vaccine, unspecified formulation Adolfo Rosalio VOCATIONAL REHABILITATION SPECIALIST.SAMPLE MAKER HAND Work Phone: [facility] Work Phone: 12-23-2007 influenza virus vaccine, unspecified formulation Adolfo Rosalio VOCATIONAL REHABILITATION SPECIALIST.SAMPLE MAKER HAND Work Phone: [facility] Work Phone: 11-21-2005 tetanus toxoid, reduced diphtheria toxoid, and acellular pertussis vaccine, adsorbed Adolfo Rosalio VOCATIONAL REHABILITATION SPECIALIST.SAMPLE MAKER HAND Work Phone: [facility] Work Phone: Payers Date Payer Category Payer Medicare MEDICARE MEDICAR E A AND B [id number] 2008-Present [phone] [place] [address] Medicare [id number] 2008 Medicare MEDICARE MEDICAR E A AND B [id number] 2008-Present [phone] [place] [address] Medicare [id number] 2008 Medicare [id number] 2005 Private Health Insurance C[employer] WONG PPO [id number] 2005-Present [phone] [address] [place] [address] PPO [id number] 2005 Private Health Insurance CIGDALILA LERNERA PPO [id number] 2005-Present [phone] [address] [place] [address] PPO [id number] 2005 Private Health Insurance [id number] Unknown Social History Date Type Detail Facility Start: 05-09-2022 End: 10-10-2022 Alcohol Use Former smoker [facility] Work Phone: Clinical Notes 06-03-2013 [...] Lucretia Arriaza Ma documented in this encounter [facility] 11-27-2022 Miscellaneous Notes TC to Pt on moving appt to an earlier time on 12/09/22. Pt declined due to transportation problems. Pt also stated being in [facility] ER and had fluid drained from abdomin. Offered to move appt up to this week or next. Pt declined, stating He will keep the appt that is scheduled. Luz Sykes LPN documented in this encounter [facility] 10-14-2022 Note HNO ID: [id number] Author: Luke Barger MD Service: ? Author [...] been taking. Pt here today for a [facility] ED follow up. Pt was started on Lasix 40 mg daily on 10/07/22 due to having issues with urine retention. He still has swelling in his feet and ankles. It does not improve over night. He states he was having some pain in the legs, took some Tylenol which helped. He was in [place] from Feb to Fe after having heart attack. His daughter lives with him. Depression: pt was on lexapro but stated it was stopped while he was in the longterm. He would like to go back on it. He is feeling depressed. Denies SI/HI. He says he has an appt in 2 days with someone at [facility] for his ascites. Pt presented to [facility] ED on 10/04/22 with shortness of breath. [facility] ED visit: HPI History of Present Illness [...] INSJ IO LENS PROSTH W/O ECP Bilateral [facility] Family History FAMILY HISTORY Problem Relation Age of Onset Stroke Mother other (cirrhosis) Father Diabetes Br (more content not included)... [facility] 10-14-2022 Instructions Luke Barger MD - 10/14/2022 6:35 PM EDT Bring your medications with you at your next appointment Get lab work done a few days before your appointment documented in this encounter [facility] 10-14-2022 History of Presen t illness Narrative Chief Complaint Patient presents with: ER F/U HPI Richard Vargas is a 77 year old male who presents here today for ER Follow Up. Pt states he has not been taking any of his medications. Poor historia;n not sure what he has been taking. Pt here today for a [facility] ED follow up. Pt was started on Lasix 40 mg daily on 10/07/22 due to having issues with urine retention. He still has swelling in his feet and ankles. It does not improve over night. He states he was having some pain in the legs, took some Tylenol which helped. He was in [place] from Feb to Mar after having heart attack. His daughter lives with him. Depression: pt was on lexapro but stated it was stopped while he was in the longterm. He would like to go back on it. He is feeling depressed. Denies SI/HI. He says he has an appt in 2 days with someone at [facility] for his ascites. Pt presented to [facility] ED on 10/04/22 with shortness of breath. [facility] ED visit: HPI History of Present Illness [...] INSJ IO LENS PROSTH W/O ECP Bilateral [facility] Family History FAMILY HISTORY Problem Relation [...] Completed HPV VACCINE Aged Out Data reviewed [facility] ER reports ASSESSMENT/PLAN: 1. Hypothyroidism, unspecified type [...] Past Histories independently gathered by the clinical academic support director and the remaining scribed note accurately [...] Avis Caruso Ma documented in this encounter [facility] 10-07-2022 Miscellaneous Notes Pt notified and [...] calls to report he was at the [facility] ER 10/05 for SOB and retaining fluid. [...] Taylor Hammond LPN documented in this encounter [facility] 05-10-2022 Miscellaneous Notes OK; Rx sent to Thiago Barger MD Patient calls to request Synthroid prescription be sent to [facility]. Patient reports he is no longer using [facility]. Last OV: 05/09/2022 Next OV: 06/14/2022 Bertha Yost RN documented in this encounter [facility] 05-10-2022 Miscellaneous Notes Called and left [...] Luke Barger MD documented in this encounter [facility] 05-09-2022 Note HNO ID: [id number] Author: Luke Barger MD Service: ? Author Type: Physician Type: Progress Notes Filed: 05/09/2022 5:21 PM Note Text: Chief Complaint Patient presents with: SNF follow up HPI Richard Vargas is a 76 year old male who presents here today for a SNF follow up. Pt here today for a SNF f/u. Pt admitted into [facility] on 03/06/22 with increased sob and confusion. Pt discharged on 03/13/22 to [place]. Pt d/c home on 04/11/22. Daughter lives [...] 2 L at bedtime. Receives supplies through [employer]. Former smoker, quit in 2019. Falls - Has had several falls over the past year. Denies any new falls he believes since being d/c from [place] on 04/11/22. Generally uses a walker/rollator or wheelchair. Pt states that when he was a [place], [facility] came out 2-3 x per week to [...] Requested for PT OT eval and social sciences research scientist to assist with discharge planning 13. Pancytopenia -due to chronic liver disease, monitoring with daily CBCs Past medical history, appointments, medications, allergies reviewed. Previous Medical History PAST MEDICAL HISTORY (more content not included)... [facility] 05-09-2022 Instructions Lucretia Arriaza Ma - 05/09/2022 10:44 AM EDT Schedule follow up with Dr. Hdez (Confectionery Laboratory Manager/GI) who you seen at [facility]. They will review your stomach and liver issues. Phone #: [phone]. Follow up in 1 month. Lexapro prescription was sent to local pharmacy. Complete labs today, will call with results. documented [facility] encounter [facility] 05[facility]22 History of Presen t illness Narrative Chief Complaint Patient presents with: SNF follow up HPI Richard Vargas is a 76 year old male who presents here today for a SNF follow up. Pt here today for a SNF f/u. Pt admitted into [facility] on 03/06/22 with increased sob and confusion. Pt discharged on 03/13/22 to [place]. Pt d/c home on 04/11/22. Daughter lives [...] to himself when he remembers. Follows with [facility], wants to get new [...] 2 L at bedtime. Receives supplies through [facility] [facility]. Former smoker, quit in 2019. Falls - Has had several falls over the past year. Denies any new falls he believes since being d/c from [place] on 04/11/22. Generally uses a walker/rollator or wheelchair. Pt states that when he was a [employer], [facility] came out 2-3 x per week to [...] Requested for PT OT eval and social sciences research scientist to assist with discharge planning 13. Pancytopenia [...] INSJ IO LENS PROSTH W/O ECP Bilateral [facility] Family History FAMILY HISTORY Problem Relation [...] SCREENING Completed PNEUMOCOCCAL: 65+ Completed Data reviewed [facility] documents ASSESSMENT/PLAN: 1. Hospital discharge follow-up - [...] Past Histories independently gathered by the clinical academic support director and the remaining scribed note accurately [...] Lucretia Arriaza Ma documented in this encounter [facility] 04-25-2022 Miscellaneous Notes Pt notified via [...] medication list. Can this be sent to [facility] pharmacy in [place]. Patient believes he misplaced that RX and can not find the medication, he believes he threw them away in all house cleaning. Patient has been identified by name and birthdate. Person calling: self Call patient at: at home [phone] (home) [phone] (cell) Was an appointment scheduled: No Closing statement: Results or non-symptom based questions: Thank you for calling [facility], your call will be returned within the next business day. [employer] documented in this encounter [facility] 04-25-2022 Note HNO ID: [id number] Author: Bandar Cardona, GENESIS Service: ? Author Type: METAL ALLOY SCIENTIST Type: Progress Notes Filed: 04/25/2022 9:17 AM Note Text: 1. Controlled type 2 diabetes mellitus with complication, without long-term current use of insulin (HCC) Risk of diabetic changes and vision loss can be minimized by tight control of blood sugar, blood pressure, and cholesterol levels. Educated patient to continue care with primary care doctor and/or crane crew supervisor to maintain optimum levels as they [...] Cardona, OD April 25, 2022 9:16 AM [facility] 04-25-2022 History of Presen t illness Narrative 1. Controlled type 2 diabetes mellitus with complication, without long-term current use of insulin (HCC) Risk of diabetic changes and vision loss can be minimized by tight control of blood sugar, blood pressure, and cholesterol levels. Educated patient to continue care with primary care doctor and/or crane crew supervisor to maintain optimum levels as they [...] 2022 9:16 AM documented in this encounter [facility] 04-25-2022 Instructions Bandar Cardona, OD - 04/25/2022 9:10 AM EST Use Systane, Refresh or Blink gel once in the morning and once before bed in both eyes documented in this encounter [facility] 04-25-2022 Miscellaneous Notes Detailed VM left [...] be sent today. Please call him at [phone] when sent. Patient has been identified by name and date of : Yes Requested Prescriptions Pending Prescriptions Disp Refills rOPINIRole (REQUIP) 2 mg tablet 90 tablet 3 Sig: Take 1 tablet by mouth daily at bedtime. RX INSTRUCTIONS: Patient aware RX will be sent to pharmacy. No need to notify patient. Arely Delarosa Pss documented in this encounter [facility] 01-24-2022 Note HNO ID: [id number] Author: Luke Barger MD Service: ? Author [...] back pain without sciatica, was sent to [facility] ER by [facility]. Xrays done with report below. ER discharged [...] INSJ IO LENS PROSTH W/O ECP Bilateral [facility] Family History FAMILY HISTORY Problem [...] gabapentin (NEURONTIN) 300 (more content not included)... [facility] 01-24-2022 History of Presen t illness Narrative [...] back pain without sciatica, was sent to [facility] ER by [facility]. Xrays done with [...] INSJ IO LENS PROSTH W/O ECP Bilateral [facility] Family History FAMILY HISTORY Problem Relation Age [...] Past Histories independently gathered by the clinical academic support director and the remaining scribed note accurately [...] Avis Caruso Ma documented in this encounter [facility] 12-26-2021 Miscellaneous Notes Called and left [...] Please advise and return his call at [phone] Called and left a detailed voicemail notifying [...] for his arthritis ? Contact patient at [phone]. Mariah José Pss documented in this encounter [facility] 12-02-2021 History of Presen t illness Narrative Subjective The history is provided by the patient and a relative. No medical tech was used. HPI Richard Vargas is a [...] have confirmed and edited as necessary, the [facility] Review of Systems Constitutional: Negative for chills [...] of investigative tools available at [facility], recommend patient be seen at nearest ED for further work up ERpassport sent to [place] [facility] to transport, [facility]. Diagnosis and treatment plan were discussed and questions were answered to the patient's satisfaction. Pt acknowledged understanding of concepts and follow up plan. Specific signs and symptoms that would indicate the need for higher level of care were discussed in detail warranting prompt ER evaluation. Felicita Steen APRN.MARU documented in this encounter [facility] 11-16-2021 Miscellaneous Notes Noted; that should be fine Luke Barger MD documented in this encounter [facility] 11-15-2021 History of Presen t illness [...] INSJ IO LENS PROSTH W/O ECP Bilateral [facility] ALLERGIES Aloe Vera and Diclofenac [...] Carmen Rock APRN.CNP documented in this encounter [facility] 11-15-2021 Instructions Carmen Rock APRN.CNP - [...] Carmen Rock APRN.CNP documented in this encounter [facility] 11-15-2021 Miscellaneous Notes The following approved medication requests have been transmitted electronically. Requested Prescriptions Pending Prescriptions Disp Refills rOPINIRole (REQUIP) 2 mg tablet 90 tablet 3 Sig: Take 1 tablet by mouth daily at bedtime. Filomena Allen APRN.CNP Pharmacy verified in [facility] Patient has been identified by name and [...] Maria L Ortiz documented in this encounter [facility] 10-17-2021 History and physical note Images [...] INSJ IO LENS PROSTH W/O ECP Bilateral [facility] CURRENT MEDICATIONS Current Outpatient Medications [...] entered by the nurse and reviewed by ne Nursing Notes: Radha Arenas LPN 09/04/2021 1:22 [...] anesthetic care. This will be done in [place] Diagnoses: (L81.9) Pigmented skin lesion of uncertain [...] TIME: 8:47 AM documented in this encounter [facility] 10-11-2021 Miscellaneous Notes The following approved [...] Last Labs: 06/28/2021 documented in this encounter [facility] 10-05-2021 Instructions Luzmaria Ruiz APRN.SAMPLE MAKER HAND - 10/05/2021 9:01 AM EDT PATIENT PREOPERATIVE INSTRUCTIONS Geovanny Baca MD has scheduled you for your procedure at this surgery center: [facility]: [phone] -- [address] [facility] [address]. Please read below carefully for your personalized [...] Procedures: - YOU MUST HAVE A RESPONSIBLE GEAR AND SPLINE GRINDER TAKE YOU HOME. A JAVA SWING DEVELOPER OR HUMAN SERVICES PROGRAM SPECIALIST CANNOT BE MADE A RESPONSIBLE GEAR AND SPLINE GRINDER. - We recommend that a responsible person [...] Advance Directive, please fax a copy to [phone] or email to for it to be [...] Luzmaria Ruiz APRN.MARU documented in this encounter [facility] 10-05-2021 History and physical note HISTORY [...] pain, CHF, congenital heart defect, DVT/PE, recent MS, murmur/valvular heart disease, open heart surgery and [...] INSJ IO LENS PROSTH W/O ECP Bilateral [facility] FAMILY HISTORY Problem Relation Age of [...] or any previous visit (from the past 42888 hour(s)). Assessment Acquired hypothyroidism Assessment: stable on [...] sleepy during the daytime STOP-Bang Score: 7 [id number] Score: Age: >=75 Sex: male CHF history: No Hypertension history: Yes Stroke/TIA/thromboembolism history: No Vascular disease history: No Diabetes history: Yes [id number] Score: 4 ARISCAT Score: Age: 51-80 Preoperative [...] and consent discussed: yes. Patient / Responsible Constitution Party agrees to proceed: yes Patient / [...] AM PAGER/CONTACT #: documented in this encounter [facility] 09-18-2021 Instructions Sulma Davis - 09/18/2021 9:02 AM EDT The following instructions are important for you related to your office visit today with the [facility] General Surgeons. Instructions After Skin Excison and [...] you should contact our office immediately @ [phone] and ask to be transferred to the General Surgery department. documented in this encounter [facility] 09-18-2021 History of Presen t illness [...] labeled. Sulma Davis documented in this encounter [facility] 09-04-2021 Instructions Geovanny Baca MD - [...] If you do not have a responsible local hazmat driver (family member or friend) with you [...] exam. 3 01/2019 documented in this encounter [facility] 09-04-2021 History of Presen t illness [...] LENS PROSTH W/O ECP Bilateral [facility] Current Outpatient Medications Medication Sig meloxicam (MOBIC) [...] entered by the nurse and reviewed by ne Nursing Notes: Radha Arenas LPN 09/04/2021 1:22 [...] anesthetic care. This will be done in [place] Diagnoses: (L81.9) Pigmented skin lesion of uncertain [...] Radha Arenas LPN documented in this encounter [facility] 09-04-2021 History of Presen t illness [...] butt cheek. Would like to go to Systems Development Consultant or Surgeon. Past medical history, appointments, medications, [...] INSJ IO LENS PROSTH W/O ECP Bilateral [facility] Family History FAMILY HISTORY Problem Relation [...] Past Histories independently gathered by the clinical academic support director and the remaining scribed note accurately [...] Avis Caruso Ma documented in this encounter [facility] 08-28-2021 Miscellaneous Notes See other phone note Luke Barger MD Patient reports he was seen in [facility] on 08/24/21 after a fall. He was [...] seen on 09/04. Requesting [facility] in [place]. Please call patient with advise. Thank you. documented in this encounter [facility] 08-27-2021 Miscellaneous Notes Patient went to [...] something for pain. documented in this encounter [facility] 07-12-2021 Instructions Filomena Allen APRN.CNP - 07/12/2021 2:43 PM EDT 1.) Get repeat labs in 1 month. 2.) Complete stool sample to check for blood. 3.) [facility] [place] 4.) Keep scheduled appointment with [facility]monology at [place]. 5.) Continue to work on eating a low carb diet, increase protein and veggies. 6.) Follow up in 3 months or sooner as needed. documented in this encounter [facility] 07-12-2021 History of Presen t illness [...] INSJ IO LENS PROSTH W/O ECP Bilateral [facility] ALLERGIES: Aloe Vera and Diclofenac [...] not work. Will be seeing pulmonology at [facility] in [place] in August. Quit smoking 3 years ago. [...] INSJ IO LENS PROSTH W/O ECP Bilateral [facility] ALLERGIES Aloe Vera and Diclofenac [...] discussed and patient voices understanding. Filomena Allen APRN.SAMPLE MAKER HAND This note was partially generated using [employer] recognition system. Note was reviewed for accuracy. There may be minor misspellings or grammar miscues with [employer] voice recognition. documented in this encounter [facility] 06-14-2021 History of Presen t illness Narrative [facility] Enrollment Provider Action/FYI: 3 attempts to reach patient in 2020 for enrollment unsuccessful. [employer] LOANZ introduction message sent recently- not read Fifth attempt to reach patient Patient referred by: [facility] Debbie Contact made with patient: No - 2nd attempt to reach patient, left another message: Hi my name is Kacie Wood RN and I am calling from the [facility] on behalf of your PCP, Luke Barger MD. We are excited to share with you a new program to help you manage your health. Please call me back at [phone] . I hope you can take the time to speak with me. (Keep encounter open for additional two business days in case patient calls back. Close encounter if no response by end of second business day) Closing: Could not reach the patient after two attempted outreaches. Spray Rig Operator to retry patient in one week. 5 attempts END OUTREACH documented in this encounter [facility] 05-15-2021 Miscellaneous Notes Detailed message left on pt identified VM that he needs to make appt and get blood work done. Avis Caruso Ma OK to refill as ordered He is due for office visit and labs as ordered Luke Barger MD documented in this encounter [facility] documented as of this encounter (statuses as of 05/15/2021) [facility] History of Past [facility] Narrative* Problem [...] of this encounter (statuses as of 06/14/2021) [facility] of [facility] Narrative* Problem [...] of this encounter (statuses as of 07/12/2021) [facility] Narrative* Problem [...] of this encounter (statuses as of 08/27/2021) [facility] Narrative* Problem [...] of this encounter (statuses as of 08/28/2021) [facility] Narrative* Problem [...] of this encounter (statuses as of 09/04/2021) [facility] Narrative* Problem [...] of this encounter (statuses as of 09/04/2021) [facility] Narrative* Problem [...] of this encounter (statuses as of 09/18/2021) [facility] Narrative* Problem [...] of this encounter (statuses as of 10/05/2021) [facility] Narrative* Problem [...] of this encounter (statuses as of 10/11/2021) [facility] Narrative* Problem [...] of this encounter (statuses as of 10/18/2021) [place] [address]-17-2014 History of Past illness Narrative* Problem Noted [...] of this encounter (statuses as of 11/15/2021) [facility]* Problem [...] of this encounter (statuses as of 11/16/2021) [facility] Narrative* Problem [...] of this encounter (statuses as of 11/20/2021) [facility] Narrative* Problem [...] of this encounter (statuses as of 12/02/2021) [facility] Narrative* Problem [...] of this encounter (statuses as of 12/26/2021) [facility] Narrative* Problem [...] of this encounter (statuses as of 01/24/2022) [facility] Narrative* Problem [...] of this encounter (statuses as of 04/25/2022) [facility] Narrative* Problem [...] of this encounter (statuses as of 04/25/2022) [facility] Narrative* Problem [...] of this encounter (statuses as of 04/25/2022) [facility] Narrative* Problem [...] of this encounter (statuses as of 05/10/2022) [facility] Narrative* Problem [...] of this encounter (statuses as of 05/10/2022) [facility] Narrative* Problem [...] of this encounter (statuses as of 05/10/2022) [facility] Narrative* Problem [...] of this encounter (statuses as of 10/07/2022) [facility] N[facility]ative* Problem [...] of this encounter (statuses as of 10/15/2022) [facility] Narrative* Problem [...] of this encounter (statuses as of 11/28/2022) [facility] Narrative* Problem [...] of this encounter (statuses as of 12/25/2022) [facility]* Diagnosis Hypothyroidism, unspecified type- Primary Essential hypertension Unspecified essential hypertension Acquired hypothyroidism Unspecified hypothyroidism Controlled diabetes mellitus type 2 with complications, unspecified whether usp insulin use (HCC) Mixed hyperlipidemia BPH with obstruction/lower urinary tract symptoms Hypertrophy of prostate with urinary obstruction and other lower urinary tract symptoms (LUTS) documented in this encounter [facility]* Diagnosis Medicare annual wellness visit, subsequent- [...] (HCC) Paralysis agitans [facility] Diagnosis Acute right-sided low back pain without sciatica- Primary Right hip pain Pain in joint, pelvic region and thigh Seborrheic keratosis Other seborrheic keratosis Difficulty sleeping Sleep disturbance, unspecified Atypical mole Benign neoplasm of skin, site unspecified [facility] Diagnosis Pigmented skin lesion of uncertain nature- Primary Atypical mole Benign neoplasm of skin, site unspecified Encounter for screening for malignant neoplasm of colon Special screening for malignant neoplasms, colon [facility] Diagnosis Skin lesion of back- Primary Unspecified disorder of skin and subcutaneous tissue [facility] Diagnosis Pre-operative examination- Primary Preoperative examination, [...] Thrombocytopenia Thrombocytopenia, unspecified [facility] Diagnosis Acute right-sided low back pain without sciatica Right hip pain Pain in joint, pelvic region and thigh [facility] Diagnosis Encounter for screening for malignant neoplasm of colon- Primary Special screening for malignant neoplasms, colon [facility] Diagnosis RLS (restless legs syndrome)- Primary Restless legs syndrome (RLS) [facility] Diagnosis Essential hypertension Unspecified essential hypertension RLS (restless legs syndrome) Restless legs syndrome (RLS) [facility] Diagnosis Fall, initial encounter- Primary Acute right-sided low back pain without sciatica [facility] Diagnosis Upper back pain- Primary Need for influenza vaccination Need for prophylactic vaccination and inoculation against influenza Wheezing [facility] Diagnosis RLS (restless legs syndrome) Restless legs syndrome (RLS) [facility]* Diagnosis Controlled type 2 diabetes mellitus with complication, without long-term current use of insulin (HCC)- Primary Dry eye syndrome of both eyes Punctate keratitis, bilateral Epiretinal membrane (ERM) of left eye Optic nerve drusen, bilateral Pseudophakia Lens replaced by other means [facility] Diagnosis Hospital discharge follow-up- Primary Other [...] Thrombocytopenia Thrombocytopenia, unspecified [facility] Diagnosis Hypothyroidism, unspecified type- Primary Essential hypertension Unspecified essential hypertension Controlled type 2 diabetes mellitus with complication, without long-term current use of insulin (HCC) Mixed hyperlipidemia Iron deficiency anemia due to chronic blood loss Iron deficiency anemia secondary to blood loss (chronic) [facility] Diagnosis Hypothyroidism, unspecified type- Primary [...] chronic respiratory failure documented in this encounter [facility] for referral (narrative)* Outpatient Procedure (Routine) - Authorized Specialty Diagnoses / Procedures Referred By Contac t Referred To Contact [facility] Diagnoses Encounter for screening for malignant neoplasm of colon Procedures COLONOSCOPY DIAGNOSTIC COLONOSCOPY FLX DX W/COLLJ SPEC WHEN Geovanny Long MD [address] [place] [address] [facility] [place] [address] [address] Referral ID Status Reason Start Date Expiration Date Visits Requested Visits Authorized [id number] Authorized Auto-Generat ed Referral 09/04/2021 09/04/[address] [facility] for referral (narrative)* Outpatient Procedure (Routine) - Closed Specialty Diagnoses / Procedures Referred By Contac t Referred To Contact [facility] Diagnoses Encounter for screening for malignant neoplasm of colon Procedures COLONOSCOPY DIAGNOSTIC COLONOSCOPY FLX DX W/COLLJ SPEC WHEN Geovanny Long MD [address] [place] [address] [address] Referral ID Status Reason Start Date Expiration Date V isits Requested Visits Authorized [id number] Closed Auto-Generate d Referral 09/04/2021 09/04/2022 1 1 [facility] Outpatient Procedure (Routine) - Closed Specialty Diagnoses / Procedures Referred By [place] white Referred To Contact [facility] Diagnoses Encounter for screening for malignant neoplasm of colon Procedures COLONOSCOPY DIAGNOSTIC COLONOSCOPY FLX DX W/COLLJ SPEC WHEN [facility] Geovanny Baca MD [address] [place] [address] [facility] [place] [address] [place] [address] Referral ID Status Reason Start Date Expiration Date V isits Requested Visits Authorized [id number] Closed Auto-Generate d Referral 09/04/2021 09/04/2022 1 1 [facility] Instructions Name Dates Details Smoker : [...] Documents on File Type Date Recorded Patient Certified Scrum Master Expl anation Advance Directive(s) 09/23/2008 9:59 PM Documents on File Type Date Recorded Patient Certified Scrum Master Expl anation Advance Directive(s) 09/23/2008 9:59 PM [...] lesion Procedures CONSULT TO DERMATOLOGY Filomena Allen APRN.SAMPLE MAKER HAND [address] [place] [address] Referral ID Status Reason Start Date Expiration Date Visits Requested Visits Authorized [id number] Ref Not Required PCP Requested Referral 07/12/2021 07/12/2022 1 1 Specialty Diagnoses / Procedures Referred By Contac t Referred To Contact General Surgery Diagnoses Seborrheic keratosis Atypical mole Procedures CONSULT TO GENERAL SURGERY OFFICE/OUTPATIENT [facility] 60-74 MINUTES Luke Barger MD [address] [place] [address] Referral ID Status Reason Start Date Expiration Date V isits Requested Visits Authorized [id number] Closed PCP Requested Referral 09/04/2021 09/04/2022 1 [...] mole Procedures CONSULT TO GENERAL SURGERY OFFICE/OUTPATIENT [facility] 60-74 MINUTES Luke Barger MD [address] [place] [address] Referral ID Status Reason Start Date Expiration Date V isits Requested Visits Authorized [id number] Closed PCP Requested Referral 09/04/2021 09/04/2022 1 [...] or prosecute any alcohol or drug abuse patient.[facility] HospitalIn the event this information is protected by the Federal Confidentiality of Alcohol and Drug Abuse Patient Records regulations: The Federal rules restrict any use of the information to criminally investigate or prosecute any alcohol or drug abuse patient.[facility] HospitalIn the event this information is protected by the Federal Confidentiality of Alcohol and Drug Abuse Patient Records regulations: The Federal rules restrict any use of the information to criminally investigate or prosecute any alcohol or drug abuse patient.[facility] HospitalIn the event this information is protected by the Federal Confidentiality of Alcohol and Drug Abuse Patient Records regulations: The Federal rules restrict any use of the information to criminally investigate or prosecute any alcohol or drug abuse patient.[facility] HospitalIn the event this information is protected by the Federal Confidentiality of Alcohol and Drug Abuse Patient Records regulations: The Federal rules restrict any use of the information to criminally investigate or prosecute any alcohol or drug abuse patient.[facility] HospitalIn the event this information is protected by the Federal Confidentiality of Alcohol and Drug Abuse Patient Records regulations: The Federal rules restrict any use of the information to criminally investigate or prosecute any alcohol or drug abuse patient.[facility] HospitalIn the event this information is protected by the Federal Confidentiality of Alcohol and Drug Abuse Patient Records regulations: The Federal rules restrict any use of the information to criminally investigate or prosecute any alcohol or drug abuse patient.[facility] HospitalIn the event this information is protected by the Federal Confidentiality of Alcohol and Drug Abuse Patient Records regulations: The Federal rules restrict any use of the information to criminally investigate or prosecute any alcohol or drug abuse patient.[facility] HospitalIn the event this information is protected by the Federal Confidentiality of Alcohol and Drug Abuse Patient Records regulations: The Federal rules restrict any use of the information to criminally investigate or prosecute any alcohol or drug abuse patient.[facility] HospitalIn the event this information is protected by the Federal Confidentiality of Alcohol and Drug Abuse Patient Records regulations: The Federal rules restrict any use of the information to criminally investigate or prosecute any alcohol or drug abuse patient.[facility] HospitalIn the event this information is protected by the Federal Confidentiality of Alcohol and Drug Abuse Patient Records regulations: The Federal rules restrict any use of the information to criminally investigate or prosecute any alcohol or drug abuse patient.[facility] HospitalIn the event this information is protected by the Federal Confidentiality of Alcohol and Drug Abuse Patient Records regulations: The Federal rules restrict any use of the information to criminally investigate or prosecute any alcohol or drug abuse patient.[facility] HospitalIn the event this information is protected by the Federal Confidentiality of Alcohol and Drug Abuse Patient Records regulations: The Federal rules restrict any use of the information to criminally investigate or prosecute any alcohol or drug abuse patient.[facility] HospitalIn the event this information is protected by the Federal Confidentiality of Alcohol and Drug Abuse Patient Records regulations: The Federal rules restrict any use of the information to criminally investigate or prosecute any alcohol or drug abuse patient.[facility] HospitalIn the event this information is protected by the Federal Confidentiality of Alcohol and Drug Abuse Patient Records regulations: The Federal rules restrict any use of the information to criminally investigate or prosecute any alcohol or drug abuse patient.[facility] HospitalIn the event this information is protected by the Federal Confidentiality of Alcohol and Drug Abuse Patient Records regulations: The Federal rules restrict any use of the information to criminally investigate or prosecute any alcohol or drug abuse patient.[facility] HospitalIn the event this information is protected by the Federal Confidentiality of Alcohol and Drug Abuse Patient Records regulations: The Federal rules restrict any use of the information to criminally investigate or prosecute any alcohol or drug abuse patient.[facility] HospitalIn the event this information is protected by the Federal Confidentiality of Alcohol and Drug Abuse Patient Records regulations: The Federal rules restrict any use of the information to criminally investigate or prosecute any alcohol or drug abuse patient.[facility] HospitalIn the event this information is protected by the Federal Confidentiality of Alcohol and Drug Abuse Patient Records regulations: The Federal rules restrict any use of the information to criminally investigate or prosecute any alcohol or drug abuse patient.[facility] the event this information is protected by the Federal Confidentiality of Alcohol and Drug Abuse Patient Records regulations: The Federal rules restrict any use of the information to criminally investigate or prosecute any alcohol or drug abuse patient.[facility] HospitalIn the event this information is protected by the Federal Confidentiality of Alcohol and Drug Abuse Patient Records regulations: The Federal rules restrict any use of the information to criminally investigate or prosecute any alcohol or drug abuse patient.[facility] HospitalIn the event this information is protected by the Federal Confidentiality of Alcohol and Drug Abuse Patient Records regulations: The Federal rules restrict any use of the information to criminally investigate or prosecute any alcohol or drug abuse patient.[facility] HospitalIn the event this information is protected by the Federal Confidentiality of Alcohol and Drug Abuse Patient Records regulations: The Federal rules restrict any use of the information to criminally investigate or prosecute any alcohol or drug abuse patient.[facility] HospitalIn the event this information is protected by the Federal Confidentiality of Alcohol and Drug Abuse Patient Records regulations: The Federal rules restrict any use of the information to criminally investigate or prosecute any alcohol or drug abuse patient.[facility] HospitalIn the event this information is protected by the Federal Confidentiality of Alcohol and Drug Abuse Patient Records regulations: The Federal rules restrict any use of the information to criminally investigate or prosecute any alcohol or drug abuse patient.[facility] HospitalIn the event this information is protected by the Federal Confidentiality of Alcohol and Drug Abuse Patient Records regulations: The Federal rules restrict any use of the information to criminally investigate or prosecute any alcohol or drug abuse patient.[facility] HospitalIn the event this information is protected by the Federal Confidentiality of Alcohol and Drug Abuse Patient Records regulations: The Federal rules restrict any use of the information to criminally investigate or prosecute any alcohol or drug abuse patient.[facility] Care Teams (unrecognized sec tion and content) Sales Superintendent Relationship Specialty Start Date End Date Luke Barger MD [address] [place] [address] PCP - General Family Practice 05/22/18 Sales Superintendent Relationship Specialty Start Date End Date Luke Barger MD [facility] [place] [address] PCP - General Family Practice 05/22/18 Sales Superintendent Relationship Specialty Start Date End Date Luke Barger MD [address] [place] [address] PCP - General Family Practice 05/22/18 Sales Superintendent Relationship Specialty Start Date End Date Luke Barger MD [facility] [place] [address] PCP - General Family Practice 05/22/18 Sales Superintendent Relationship Specialty Start Date End Date Luke Barger MD [address] [facility] [place] [address] PCP - General Family Practice 05/22/18 Sales Superintendent Relationship Specialty Start Date End Date Luke Barger MD [address] [place] [address] [place] [address] PCP - General Family Practice 05/22/18 Sales Superintendent Relationship Specialty Start Date End Date Luke Barger MD [address] [facility] [place] [address] PCP - General Family Practice 05/22/18 Sales Superintendent Relationship Specialty Start Date End Date Luke Barger MD [address] [facility] [place] [address] PCP - General Family Practice 05/22/18 Sales Superintendent Relationship Specialty Start Date End Date Luke Barger MD [address] [facility] [place] [address] PCP - General Family Practice 05/22/18 Sales Superintendent Relationship Specialty Start Date End Date Luke Barger MD [address] [facility] [place] [address] PCP - General Family Medicine 05/22/18 Sales Superintendent Relationship Specialty Start Date End Date Luke Barger MD [address] [facility] [place] [address] PCP - General Family Medicine 05/22/18 Sales Superintendent Relationship Specialty Start Date End Date Luke Barger MD [address] [facility] [place] [address] PCP - General Family Medicine 05/22/18 Sales Superintendent Relationship Specialty Start Date End Date Luke Barger MD [address] [facility] [place] [address] PCP - General Family Medicine 05/22/18 Sales Superintendent Relationship Specialty Start Date End Date Luke Barger MD [address] [facility] [place] [address] PCP - General Family Medicine 05/22/18 Sales Superintendent Relationship Specialty Start Date End Date Luke Barger MD [address] [facility] [place] [address] PCP - General Family Medicine 05/22/18 Sales Superintendent Relationship Specialty Start Date End Date Luke Barger MD [address] [facility] [place] [address] PCP - General Family Medicine 05/22/18 Sales Superintendent Relationship Specialty Start Date End Date Luke Barger MD [address] [facility] [place] [address] PCP - General Family Medicine 05/22/18 Sales Superintendent Relationship Specialty Start Date End Date Luke Barger MD [address] [facility] [place] [address] PCP - General Family Medicine 05/22/18 Sales Superintendent Relationship Specialty Start Date End Date Luke Barger MD [address] [facility] [place] [address] PCP - General Family Medicine 05/22/18 Sales Superintendent Relationship Specialty Start Date End Date Luke Barger MD [address] [facility] [place] [address] PCP - General Family Medicine 05/22/18 Sales Superintendent Relationship Specialty Start Date End Date Luke Barger MD [address] [facility] [place] [address] PCP - General Family Medicine 05/22/18 (unrecognized sect ion and content) No Status Records FoundNo Status Records Found INFORMATION SOURCE (unrecogn ized section and content) DATE CREATED AUTHOR AUTHOR'S ORGANIZ ATION 12/26/2022 [facility] FOR RECORDS PERTAINING TO PATIENTS WHO ARE [...] BE BASED ON THE PRIMARY CLINICAL RECORDS. [facility]. provides no warranty or guarantee of the accuracy or completeness of information in this document.
[2023-03-21 14:06] VITALS: BP 143/64; PULSE 75; RESP 16; TEMP 36.4; O2SAT 100
== END | disposition home or self-care (01) ==
LOC: US 10:16
PROVIDERS: PCP Family Medicine Geriatric Medicine; Referring Provider Family Medicine Geriatric Medicine; Visit Provider Family Medicine Geriatric Medicine
DX: K74.60 Unspecified cirrhosis of liver (principal)
CPT/HCPCS: 96365; 96366 ×2; 49083; J7050; P9047

== ENCOUNTER → 2023-03-25 | Outpatient (CLI) | payer MEDICARE, OTHER, SELFPAY ==
--- NOTE | 2023-03-25 07:16 | US_ITS ---
STUDY: ABDOMINAL ULTRASOUND - RIGHT UPPER QUADRANT REASON FOR VISIT: Male, 77 years old CIRRHOSIS TECHNIQUE: Ultrasound evaluation of the right upper quadrant was performed with real-time and static martin-scale imaging. TECHNICAL QUALITY: Adequate. COMPARISON: Comparison is made with prior study dated February 11, 2023. FINDINGS: Liver: The liver measures 12.1 cm. There is a heterogeneous echogenicity of the liver. The contour of the liver is scalloped suggestive of cirrhosis. The bile ducts are within normal limits. There is hepatic color flow. The direction of portal flow is hepatopetal. There is no demonstrated mass lesion. Ascitic fluid is seen in the right upper quadrant. Gallbladder: Normal distended gallbladder. The gallbladder wall measures 4 mm. There is a negative sonographic Mota''s sign. There is no pericholecystic fluid. There are no gallstones. There is evidence of adenomyomatosis of the wall of the gallbladder. Common Bile Duct (C.B.D.): The common bile duct measures 4 mm. Pancreas: There is nonvisualization of the pancreas due to overlying bowel gas. Right Kidney: Normal size of the right kidney. The right kidney measures 9.4 cm x 5.7 cm x 5.1 cm. Normal renal cortex. The right cortex measures 1.2 cm. There is no demonstrated renal mass or cyst. There is no right hydronephrosis. US/Abdomen Limited IMPRESSION: Heterogeneous echotexture of the liver with the nodular contour suggestive of cirrhosis. Ascitic fluid is seen in the right upper quadrant. 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 Electronically Signed: Manuelito Mathews MD at 9:48 EST ,
--- OUTSIDE RECORDS SUMMARY | 2023-03-25 07:41 | XMS RPT_ITS | CCD ---
Author Name Unknown Address [id number] [place] [address] Organization [facility] Care Team Providers Care Return To Service Inspector Name Role Phone SaranyaRadha blanco E Unavailable Ming Garrido Unavailable Physical [facility], [facility] Unavailable Bebeto Marrufo Unavailable [phone] Ryan Shine Unavailable Matheus Mills Unavailable [phone] Darrian Martin Unavailable [phone] Mansi Sanabria Unavailable Darrian Martin Unavailable [phone] Eboni Cisse Unavailable Martinez Srinivasan Unavailable Deana Moreland Unavailable Unavailable Kerri Ferreira Unavailable Unavailable Anastasiia Norwood Unavailable Unavailable Unavailable Unavailable Greyson Vazquez MD Unavailable [phone] Luke Barger MD Primary Care Provider [...] Translations: [ALOE VERA] Drug Allergy 02-24-2014 Rash [facility] (20 sources) Diclofenac; Translations: [DICLOFENAC] Drug Allergy 02-28-2011 Intolerance [facility] Medications Current Medications Medication Drug Class(es) Dates Sig (Normalized) Sig (Original) [id number] 200 actuat albuterol 0.09 mg/actuat metered dose [...] 88.91 kg Luke Barger MD Work Phone: [facility] 10-14-2022 18:04-0400 Diastolic blood pressure 80 mm[Hg] Luke Barger MD Work Phone: [facility] 10-14-2022 18:04-0400 Heart rate 72 /min Luke Barger MD Work Phone: [facility] 10-14-2022 18:04-0400 Respiratory rate 18 /min Luke Barger MD Work Phone: [facility] 10-14-2022 18:04-0400 Systolic blood pressure 130 mm[Hg] Luke Barger MD Work Phone: [facility] 05-09-2022 10:11-0400 Body weight 85.19 kg Luke Barger MD Work Phone: [facility] 05-09-2022 10:11-0400 Diastolic blood pressure 64 mm[Hg] Luke Barger MD Work Phone: [facility] 05-09-2022 10:11-0400 Heart rate 76 /min Luke Barger MD Work Phone: [facility] 05-09-2022 10:11-0400 Respiratory rate 20 /min Luke Barger MD Work Phone: [facility] 05-09-2022 10:11-0400 SaO2% (BldA) [Mass fraction] 99 % Luke Barger MD Work Phone: [facility] 05-09-2022 10:11-0400 Systolic blood pressure 130 mm[Hg] Luke Barger MD Work Phone: [facility] 01-24-2022 08:07-0500 Body temperature 98.2 [degF] Luke Barger MD Work Phone: [facility] 01-24-2022 08:07-0500 Body weight 105.69 kg Luek Barger MD Work Phone: [facility] 01-24-2022 08:07-0500 Diastolic blood pressure 90 mm[Hg] Luke Barger MD Work Phone: [facility] 01-24-2022 08:07-0500 Heart rate 78 /min Luke Barger MD Work Phone: [facility] 01-24-2022 08:07-0500 Respiratory rate 20 /min Luke Barger MD Work Phone: [facility] 01-24-2022 08:07-0500 SaO2% (BldA) [Mass fraction] 94 % Luke Barger MD Work Phone: [facility] 01-24-2022 08:07-0500 Systolic blood pressure 150 mm[Hg] Luke Barger MD Work Phone: [facility] 12-02-2021 12:17-0400 Body temperature 97.59 [degF] Felicita Celsa CORK CUTTER.MARKETING DATABASE COORDINATOR Work Phone: [facility] 12-02-2021 12:17-0400 Body weight 99.79 kg Felicita Celsa CORK CUTTER.MARKETING DATABASE COORDINATOR Work Phone: [facility] 12-02-2021 12:17-0400 Diastolic blood pressure 76 mm[Hg] Felicita Celsa CORK CUTTER.MARKETING DATABASE COORDINATOR Work Phone: [facility] 12-02-2021 12:17-0400 Heart rate 94 /min Felicita Celsa CORK CUTTER.MARKETING DATABASE COORDINATOR Work Phone: [facility] 12-02-2021 12:17-0400 Respiratory rate 21 /min Felicita Celsa CORK CUTTER.MARKETING DATABASE COORDINATOR Work Phone: [facility] 12-02-2021 12:17-0400 SaO2% (BldA) [Mass fraction] 95 % Felicita Celsa CORK CUTTER.MARKETING DATABASE COORDINATOR Work Phone: [facility] 12-02-2021 12:17-0400 Systolic blood pressure 182 mm[Hg] Felicita Celsa CORK CUTTER.MARKETING DATABASE COORDINATOR Work Phone: [facility] 11-15-2021 18:44-0400 Body temperature 97.2 [degF] Carmen Praisler-Wood CORK CUTTER.MARKETING DATABASE COORDINATOR Work Phone: [facility] 11-15-2021 18:44-0400 Body weight 96.07 kg Carmen Praisler-Wood CORK CUTTER.MARKETING DATABASE COORDINATOR Work Phone: [facility] 11-15-2021 18:44-0400 Diastolic blood pressure 78 mm[Hg] Carmen Praisler-Wood CORK CUTTER.MARKETING DATABASE COORDINATOR Work Phone: [facility] 11-15-2021 18:44-0400 Heart rate 79 /min Carmen Praisler-Wood CORK CUTTER.MARKETING DATABASE COORDINATOR Work Phone: [facility] 11-15-2021 18:44-0400 Respiratory rate 18 /min Carmen Praisler-Wood CORK CUTTER.MARKETING DATABASE COORDINATOR Work Phone: [facility] 11-15-2021 18:44-0400 SaO2% (BldA) [Mass fraction] 97 % Carmen Praisler-Wood CORK CUTTER.MARKETING DATABASE COORDINATOR Work Phone: [facility] 11-15-2021 18:44-0400 Systolic blood pressure 156 mm[Hg] Carmen Praisler-Wood CORK CUTTER.MARKETING DATABASE COORDINATOR Work Phone: [facility] 10-17-2021 09:59-0400 Diastolic blood pressure 71 mm[Hg] Geovanny Baca MD Work Phone: [facility] 10-17-2021 09:59-0400 Heart rate 65 /min Geovanny Baca MD Work Phone: [facility] 10-17-2021 09:59-0400 Respiratory rate 28 /min Geovanny Baca MD Work Phone: [facility] 10-17-2021 09:59-0400 SaO2% (BldA) [Mass fraction] 99 % Geovanny Baca MD Work Phone: [facility] 10-17-2021 09:59-0400 Systolic blood pressure 166 mm[Hg] Geovanny Baca MD Work Phone: [facility] 10-17-2021 09:45-0400 Body temperature 98.6 [degF] Geovanny Baca MD Work Phone: [facility] 10-05-2021 08:45-0400 Body height 166.4 cm Pacc 1 Work Phone: [facility] 10-05-2021 08:45-0400 Body temperature 97 [degF] Pacc 1 Work Phone: [facility] 10-05-2021 08:45-0400 Body weight 97.52 kg Pacc 1 Work Phone: [facility] 10-05-2021 08:45-0400 Diastolic blood pressure 68 mm[Hg] Pacc 1 Work Phone: [facility] 10-05-2021 08:45-0400 Heart rate 67 /min Pacc 1 Work Phone: [facility] 10-05-2021 08:45-0400 Respiratory rate 16 /min Pacc 1 Work Phone: [facility] 10-05-2021 08:45-0400 SaO2% (BldA) [Mass fraction] 93 % Pacc 1 Work Phone: [facility] 10-05-2021 08:45-0400 Systolic blood pressure 134 mm[Hg] Pacc 1 Work Phone: [facility] 09-04-2021 13:16-0400 Body height 167.6 cm Geovanny Baca MD Work Phone: [facility] 07-19-2022 13:16-0400 Body temperature 97 [degF] Geovanny Baca MD Work Phone: [facility] 09-04-2021 13:16-0400 Body weight 96.62 kg Geovanny Baca MD Work Phone: [facility] 09-04-2021 13:16-0400 Diastolic blood pressure 62 mm[Hg] Geovanny Baca MD Work Phone: [facility] 09-04-2021 13:16-0400 Heart rate 99 /min Geovanny Baca MD Work Phone: [facility] 09-04-2021 13:16-0400 SaO2% (BldA) [Mass fraction] 93 % Geovanny Baca MD Work Phone: [facility] 09-04-2021 13:16-0400 Systolic blood pressure 156 mm[Hg] Geovanny Baca MD Work Phone: [facility] 09-04-2021 08:43-0400 Body weight 97.52 kg Luke Barger MD Work Phone: [facility] 09-04-2021 08:43-0400 Diastolic blood pressure 74 mm[Hg] Luke Barger MD Work Phone: [facility] 09-04-2021 08:43-0400 Heart rate 62 /min Luke Barger MD Work Phone: [facility] 09-04-2021 08:43-0400 Respiratory rate 16 /min Luke Barger MD Work Phone: [facility] 09-04-2021 08:43-0400 Systolic blood pressure 138 mm[Hg] Luke Barger MD Work Phone: [facility] 07-12-2021 14:22-0400 Body height 169 cm Filomena Allen CORK CUTTER.MARKETING DATABASE COORDINATOR Work Phone: [facility] 07-12-2021 14:22-0400 Body weight 102.06 kg Filomena Allen CORK CUTTER.MARKETING DATABASE COORDINATOR Work Phone: [facility] 07-12-2021 14:22-0400 Diastolic blood pressure 70 mm[Hg] Filomena Allen CORK CUTTER.MARKETING DATABASE COORDINATOR Work Phone: [facility] 07-12-2021 14:22-0400 Heart rate 65 /min Filomenajuventino Allen CORK CUTTER.MARKETING DATABASE COORDINATOR Work Phone: [facility] 07-12-2021 14:22-0400 Respiratory rate 16 /min Filomenajuventino Allen CORK CUTTER.MARKETING DATABASE COORDINATOR Work Phone: [facility] 07-12-2021 14:22-0400 SaO2% (BldA) [Mass fraction] 95 % Filomena Tiffany CORK CUTTER.MARKETING DATABASE COORDINATOR Work Phone: [facility] 07-12-2021 14:22-0400 Systolic blood pressure 160 mm[Hg] Filomenajuventino Allen CORK CUTTER.MARKETING DATABASE COORDINATOR Work Phone: [facility] 01-13-2018 13:06-0500 BMI (Body Mass Index) 35.7 [...] cleared fda spec home use Richard Agee CORK CUTTER.EDUCATIONAL RESOURCE COORDINATOR Work Phone: Start: 10-17-2021 Colonoscopy Carmen Rock CORK CUTTER.MARKETING DATABASE COORDINATOR Work Phone: Start: 07-12-2021 Adult depression screening assessment Filomena Allen CORK CUTTER.MARKETING DATABASE COORDINATOR Work Phone: Start: 07-21-2019 End: 07-21-2019 Blood [...] 05-22-2018 Adult depression screening assessment Adolfo Ryder CORK CUTTER.MARKETING DATABASE COORDINATOR Work Phone: Start: 01-09-2018 End: 01-09-2018 Emergency Department Summary Comments: See Note; NOTES: [facility] Medical Records Department [address] [place] [address] Emergency Department Summary 01/09/18 0645 MR#: [id number] Acct: [id number] Name: RICHARD VARGAS Rep #: [id number] : 1945 72 From: Ermelinda Deng MD [...] Parkinson's disease This note was generated with [employer] dictation software. It may contain incorrect words, spelling, and punctuation that were not noted in review of the chart prior to signing ED Disposition - Plan for ED Patient: Chief Complaint: Syncope Referrals: Radha Torres, BUILD ENGINEER-C [Primary Care Provider] - What to do if you have Problems For any increased pain, shortness of breath, bleeding, nausea or vomiting, chest pain, or any unexpected problems, contact your Primary Care Provider. Call [facility] ([phone]) or report to the closest Emergency Room. Call 911 if necessary. 01/09/18 0753 <Electronically signed by Ermelinda Deng MD> Date Ermelinda Deng MD Cosigner Signature (If Indicated): Date CC: Radha Torres Start: 01-09-2018 End: 01-09-2018 Brain/Head without Contrast Comments: See Note; NOTES: [facility] Imaging Services [address] [place] [address] Brain/Head without Contrast MR#: [id number] Acct: [id number] Name: RICHARD VARGAS Rep #: [id number] : 1945 M 72 From: James Faustin MD PCP: Radha Torres NP Status: REG ER Study: Brain/Head without Contrast Date of Exam: 01/09/18 Exam# [id number] Ordering Dr: Ermelinda Deng MD STUDY: CT [...] CC: Radha Torres NP; Ermelinda Deng MD Saw Offbearer: Signed Radha Torres Start: 01-09-2018 End: 01-09-2018 Chest 1 View Comments: See Note; NOTES: [facility] Imaging Services [address] [place] [address] Chest 1 View MR#: [id number] Acct: [id number] Name: RICHARD VARGAS Rep #: [id number] : 1945 M 72 From: James Faustin MD PCP: Radha Torres NP Status: REG ER Study: Chest 1 View Date of Exam: 01/09/18 Exam# [id number] Ordering Dr: Ermelinda Deng MD STUDY: X-RAY [...] CC: Radha Torres NP; Ermelinda Deng MD Saw Offbearer: Signed Radha Torres Start: 02-26-2017 End: 02-26-2017 Chest WITH Contrast Comments: See Note; NOTES: [facility] Imaging Services [address] [place] [address] Chest WITH Contrast MR#: [id number] Acct: [id number] Name: RICHARD VARGAS Rep #: [id number] : 1945 M 71 From: Amadeo Dc MD PCP: Cindy Maria DO Status: REG CLI Study: Chest WITH Contrast Date of Exam: 02/26/17 Exam# [id number] Ordering Dr: Cindy Maria DO STUDY: CT [...] spleen. Although not fully included in the [id number], spleen appears upper limits of normal size. [...] Service support , CC: Cindy Maria DO Saw Offbearer: Signed Cindy Maria Work Phone: Start: 02-27-2016 End: 02-27-2016 Emergency Department Summary Comments: See Note; NOTES: [facility] Medical Records Department [address] [place] [address] Emergency Department Summary MR#: [id number] Acct: [id number] Name: RICHARD VARGAS Rep #: [id number] : 1945 70 From: Richard Miranda MD PCP: Piyush Sanabria Status: [facility] ER DATE OF SERVICE: 02/27/2016 CHIEF [...] Discharge. Richard Miranda MD T: NTS JOB: [id number] 02/27/16 033 <Electronically signed by Richard Miranda MD> Date Richard Miranda MD Cosigner Signature (If Indicated): Date CC: Piyush Sanabria Date Dictated: 02/27/16150 Date Transcribed: 02/27/16150 Saw Offbearer: Corey Torres Start: 02-27-2016 End: 02-27-2016 Discharge Instruction Comments: See Note; NOTES: [facility] Medical Records Department [address] [place] [address] Discharge Instruction 02/27/16 0149 MR#: [id number] Acct: [id number] Name: SOHANRICHARD Rep #: [id number] : 1945 70 From: Richard Miranda MD [...] your Primary Care Provider. Call [facility] ([phone]) or report to the closest Emergency Room. Call 911 if necessary. 02/27/16 0154 <Electronically signed by Richard Miranda MD> Date Richard Ruth MD Cosigner Signature (If Indicated): Date CC: Piyush Torres Start: 11-30-2015 Biopsy of bone marrow Radha Torres Plan of Treatment Date Care Activity Detail Author Start: 07-19-2029 Urine microalbumin profile [facility] Start: 10-17-2026 Colonoscopy COLONOSCOPY [facility] Start: 10-17-2026 COLORECTAL CANCER SCREENING COLORECTAL CANCER SCREENING [facility] Start: 10-15-2023 ANNUAL PCP TEAM CHRONIC DISEASE VISIT ANNUAL PCP TEAM CHRONIC DISEASE VISIT [facility] Start: 05-14-2023 Hemoglobin A1c/Hemoglobin.total in Blood HbA1C [facility] Start: 05-10-2023 ANNUAL PCP TEAM CHRONIC DISEASE VISIT ANNUAL PCP TEAM CHRONIC DISEASE VISIT [facility] Start: 04-26-2023 Hepatitis C antibody, confirmatory test DILATED RETINAL EXAM [facility] Start: 01-24-2023 ANNUAL PCP TEAM CHRONIC DISEASE VISIT ANNUAL PCP TEAM CHRONIC DISEASE VISIT [facility] Start: 11-09-2022 Hemoglobin A1c/Hemoglobin.total in Blood HBA1C [facility] Start: 10-18-2022 Influenza vaccination [facility] Start: 10-14-2022 End: 12-14-2022 CBC panel - Blood by Automated count CBC Lab Routine Essential hypertension Expected: 10/14/2022 (Approximate), Expires: 12/14/2022 [facility] Work Phone: Immunizations Immunization Date Immunization Notes Care Provider Georgina keller 01-24-2022 influenza, high-dose , quadrivalent vaccine (FLUZONE HIGH DOSE QUADRIVALENT) Luke Barger MD Work Phone: [facility] 01-24-2022 influenza virus vaccine, unspecified formulation Filomena Allen CORK CUTTER.MARKETING DATABASE COORDINATOR Work Phone: [facility] 11-19-2019 influenza, high-dose , quadrivalent vaccine (FLUZONE HIGH DOSE QUADRIVALENT) Adolfo Ryder APRN.MARKETING DATABASE COORDINATOR Work Phone: [facility] 07-20-2019 tetanus toxoid, reduced diphtheria toxoid, and acellular pertussis vaccine, adsorbed Adolfo Caldwellil CORK CUTTER.MARKETING DATABASE COORDINATOR Work Phone: [facility] Work Phone: 11-06-2018 influenza, high dose seasonal, preservative-free Adolfo Rosalio CORK CUTTER.MARKETING DATABASE COORDINATOR Work Phone: [facility] 02-18-2016 tetanus and diphther ia toxoids, adsorbed, preservative free, for adult use (2 Lf of tetanus toxoid and 2 Lf of diphtheria toxoid) [facility] Work Phone: 04-13-2015 pneumococcal conjuga te vaccine, 13 valent Adolfo Rosalio CORK CUTTER.MARKETING DATABASE COORDINATOR Work Phone: [facility] Work Phone: 12-20-2014 influenza, high dose seasonal, preservative-free Adolfo Rosalio CORK CUTTER.MARKETING DATABASE COORDINATOR Work Phone: [facility] 02-17-2014 influenza, seasonal, injectable [facility] Work Phone: 11-01-2013 influenza, seasonal, injectable Adolfo Rosalio CORK CUTTER.MARKETING DATABASE COORDINATOR Work Phone: [facility] 11-01-2013 zoster vaccine, live Adolfo C ecil CORK CUTTER.MARKETING DATABASE COORDINATOR Work Phone: [facility] 11-04-2012 influenza virus vaccine, unspecified formulation Adolfo Rosalio CORK CUTTER.MARKETING DATABASE COORDINATOR Work Phone: [facility] 02-15-2009 pneumococcal polysaccharide vaccine, 23 valent Adolfo Rosalio CORK CUTTER.MARKETING DATABASE COORDINATOR Work Phone: [facility] 12-16-2008 influenza virus vaccine, unspecified formulation Adolfo Rosalio CORK CUTTER.MARKETING DATABASE COORDINATOR Work Phone: [facility] Work Phone: 12-23-2007 influenza virus vaccine, unspecified formulation Adolfo Rosalio CORK CUTTER.MARKETING DATABASE COORDINATOR Work Phone: [facility] Work Phone: 11-21-2005 tetanus toxoid, reduced diphtheria toxoid, and acellular pertussis vaccine, adsorbed Adolfo Rosalio CORK CUTTER.MARKETING DATABASE COORDINATOR Work Phone: [facility] Work Phone: Payers Date Payer Category Payer Medicare MEDICARE MEDICAR E A AND B [id number] 2008-Present [phone] [place] [address] Medicare [id number] 2008 Medicare MEDICARE MEDICAR E A AND B [id number] 2008-Present [phone] [place] [address] Medicare [id number] 2008 Medicare [id number] 2005 Private Health Insurance [employer] W[employer] PPO [id number] 2005-Present [phone] [address] [place] [address] PPO [id number] 2005 Private Health Insurance CIGDALILA LERNERA PPO [id number] 2005-Present [phone] [address] [place] [address] PPO [id number] 2005 Private Health Insurance [id number] Unknown Social History Date Type Detail Facility Start: 05-09-2022 End: 10-10-2022 Alcohol Use Former smoker [facility] Work Phone: Clinical Notes 06-03-2013 [...] Lucretia Arriaza Ma documented in this encounter [facility] 11-27-2022 Miscellaneous Notes TC to Pt on moving appt to an earlier time on 12/09/22. Pt declined due to transportation problems. Pt also stated being in [facility] ER and had fluid drained from abdomin. Offered to move appt up to this week or next. Pt declined, stating He will keep the appt that is scheduled. Luz Sykes LPN documented in this encounter [facility] 10-14-2022 Note HNO ID: [id number] Author: Luke Barger MD Service: ? Author [...] been taking. Pt here today for a [facility] ED follow up. Pt was started on Lasix 40 mg daily on 10/07/22 due to having issues with urine retention. He still has swelling in his feet and ankles. It does not improve over night. He states he was having some pain in the legs, took some Tylenol which helped. He was in [place] from Feb to Fe after having heart attack. His daughter lives with him. Depression: pt was on lexapro but stated it was stopped while he was in the assisted. He would like to go back on it. He is feeling depressed. Denies SI/HI. He says he has an appt in 2 days with someone at [facility] for his ascites. Pt presented to [facility] ED on 10/04/22 with shortness of breath. [facility] ED visit: HPI History of [...] INSJ IO LENS PROSTH W/O ECP Bilateral [facility] Family History FAMILY HISTORY Problem Relation Age of Onset Stroke Mother other (cirrhosis) Father Diabetes Br (more content not included)... [facility] 10-14-2022 Instructions Luke Barger MD - 10/14/2022 6:35 PM EDT Bring your medications with you at your next appointment Get lab work done a few days before your appointment documented in this encounter [facility] 10-14-2022 History of Presen t illness Narrative Chief Complaint Patient presents with: ER F/U HPI Richard Vargas is a 77 year old male who presents here today for ER Follow Up. Pt states he has not been taking any of his medications. Poor historia;n not sure what he has been taking. Pt here today for a [facility] ED follow up. Pt was started on Lasix 40 mg daily on 10/07/22 due to having issues with urine retention. He still has swelling in his feet and ankles. It does not improve over night. He states he was having some pain in the legs, took some Tylenol which helped. He was in [place] from Feb to Mar after having heart attack. His daughter lives with him. Depression: pt was on lexapro but stated it was stopped while he was in the assisted. He would like to go back on it. He is feeling depressed. Denies SI/HI. He says he has an appt in 2 days with someone at [facility] for his ascites. Pt presented to [facility] ED on 10/04/22 with shortness of breath. [facility] ED visit: HPI History of [...] INSJ IO LENS PROSTH W/O ECP Bilateral [facility] Family History FAMILY HISTORY Problem Relation [...] Completed HPV VACCINE Aged Out Data reviewed [facility] ER reports ASSESSMENT/PLAN: 1. Hypothyroidism, [...] Past Histories independently gathered by the clinical support group manager and the remaining scribed note accurately describes [...] Avis Caruso Ma documented in this encounter [facility] 10-07-2022 Miscellaneous Notes Pt notified and voiced [...] calls to report he was at the [facility] ER 10/05 for SOB and [...] Taylor Hammond LPN documented in this encounter [facility] 05-10-2022 Miscellaneous Notes OK; Rx sent to Thiago Barger MD Patient calls to request Synthroid prescription be sent to [facility]. Patient reports he is no longer using [facility]. Last OV: 05/09/2022 Next OV: 06/14/2022 Bertha Yost RN documented in this encounter [facility] 05-10-2022 Miscellaneous Notes Called and left a [...] Luke Barger MD documented in this encounter [facility] 05-09-2022 Note HNO ID: [id number] Author: Luke Barger MD Service: ? Author Type: Physician Type: Progress Notes Filed: 05/09/2022 5:21 PM Note Text: Chief Complaint Patient presents with: SNF follow up HPI Richard Vargas is a 76 year old male who presents here today for a SNF follow up. Pt here today for a SNF f/u. Pt admitted into [facility] on 03/06/22 with increased sob and confusion. Pt discharged on 03/13/22 to [place]. Pt d/c home on 04/11/22. Daughter lives [...] 2 L at bedtime. Receives supplies through [employer]. Former smoker, quit in 2019. Falls - Has had several falls over the past year. Denies any new falls he believes since being d/c from [place] on 04/11/22. Generally uses a walker/rollator or wheelchair. Pt states that when he was a [place], [facility] came out 2-3 x per [...] - Requested for PT OT eval and clinical social worker to assist with discharge planning 13. Pancytopenia -due to chronic liver disease, monitoring with daily CBCs Past medical history, appointments, medications, allergies reviewed. Previous Medical History PAST MEDICAL HISTORY (more content not included)... [facility] 05-09-2022 Instructions Lucretia Arriaza Ma - 05/09/2022 10:44 AM EDT Schedule follow up with Dr. Hdez (Distributor Operator/GI) who you seen at [facility]. They will review your stomach and liver issues. Phone #: [phone]. Follow up in 1 month. Lexapro prescription was sent to local pharmacy. Complete labs today, will call with results. documented in this encounter [facility] 05-09-2022 History of Presen t illness Narrative Chief Complaint Patient presents with: SNF follow up HPI Richard Vargas is a 76 year old male who presents here today for a SNF follow up. Pt here today for a SNF f/u. Pt admitted into [facility] on 03/06/22 with increased sob and confusion. Pt discharged on 03/13/22 to [place]. Pt d/c home on 04/11/22. Daughter lives [...] to himself when he remembers. Follows with [facility], wants to get new [...] 2 L at bedtime. Receives supplies through [employer]. Former smoker, quit in 2019. Falls - Has had several falls over the past year. Denies any new falls he believes since being d/c from [place] on 04/11/22. Generally uses a walker/rollator or wheelchair. Pt states that when he was a [place], [facility] came out 2-3 x per [...] - Requested for PT OT eval and clinical social worker to assist with discharge planning 13. Pancytopenia [...] INSJ IO LENS PROSTH W/O ECP Bilateral [facility] Family History FAMILY HISTORY Problem Relation [...] SCREENING Completed PNEUMOCOCCAL: 65+ Completed Data reviewed [facility] documents ASSESSMENT/PLAN: 1. Hospital discharge [...] Past Histories independently gathered by the clinical support group manager and the remaining scribed note accurately describes [...] Lucretia Arriaza Ma documented in this encounter [facility] 04-25-2022 Miscellaneous Notes Pt notified via identified [...] medication list. Can this be sent to [facility] pharmacy in [place]. Patient believes he misplaced that RX and can not find the medication, he believes he threw them away in all house cleaning. Patient has been identified by name and birthdate. Person calling: self Call patient at: at home [phone] (home) [phone] (cell) Was an appointment scheduled: No Closing statement: Results or non-symptom based questions: Thank you for calling [facility], your call will be returned within the next business day. [employer] documented in this encounter [facility] 04-25-2022 Note HNO ID: [id number] Author: Bandar Cardona, GENESIS Service: ? Author Type: [employer] MANUFACTURING SUPERVISOR Type: Progress Notes Filed: 04/25/2022 9:17 AM Note Text: 1. Controlled type 2 diabetes mellitus with complication, without long-term current use of insulin (HCC) Risk of diabetic changes and vision loss can be minimized by tight control of blood sugar, blood pressure, and cholesterol levels. Educated patient to continue care with primary care doctor and/or children's court magistrate to maintain optimum levels as they are [...] Cardona, OD April 25, 2022 9:16 AM [facility] 04-25-2022 History of Presen t illness Narrative 1. Controlled type 2 diabetes mellitus with complication, without long-term current use of insulin (HCC) Risk of diabetic changes and vision loss can be minimized by tight control of blood sugar, blood pressure, and cholesterol levels. Educated patient to continue care with primary care doctor and/or children's court magistrate to maintain optimum levels as they are [...] 2022 9:16 AM documented in this encounter [facility] 04-25-2022 Instructions Bandar Cardona, OD - 04/25/2022 9:10 AM EST Use Systane, Refresh or Blink gel once in the morning and once before bed in both eyes documented in this encounter [facility] 04-25-2022 Miscellaneous Notes Detailed VM left on [...] be sent today. Please call him at [phone] when sent. Patient has been identified by name and date of : Yes Requested Prescriptions Pending Prescriptions Disp Refills rOPINIRole (REQUIP) 2 mg tablet 90 tablet 3 Sig: Take 1 tablet by mouth daily at bedtime. RX INSTRUCTIONS: Patient aware RX will be sent to pharmacy. No need to notify patient. Arely Delarosa Pss documented in this encounter [facility] 01-24-2022 Note HNO ID: [id number] Author: Luke Barger MD Service: ? Author [...] back pain without sciatica, was sent to [facility] ER by [facility]. Xrays done with report below. ER [...] INSJ IO LENS PROSTH W/O ECP Bilateral [facility] Family History FAMILY HISTORY Problem [...] gabapentin (NEURONTIN) 300 (more content not included)... [facility] 01-24-2022 History of Presen t illness [...] back pain without sciatica, was sent to [facility] ER by [facility]. Xrays [...] INSJ IO LENS PROSTH W/O ECP Bilateral [facility] Family History FAMILY HISTORY Problem Relation Age [...] Past Histories independently gathered by the clinical support group manager and the remaining scribed note accurately describes [...] Avis Caruso Ma documented in this encounter [facility] 12-26-2021 Miscellaneous Notes Called and left a [...] Please advise and return his call at [phone] Called and left a detailed voicemail notifying [...] for his arthritis ? Contact patient at [phone]. Mariah José Pss documented in this encounter [facility] 12-02-2021 History of Presen t illness Narrative Subjective The history is provided by the patient and a relative. No sign language translator was used. HPI Richard Vargas is a [...] have confirmed and edited as necessary, the [facility] Review of Systems Constitutional: Negative for [...] and lack of investigative tools available at [facility], recommend patient be seen at nearest ED for further work up ERpassport sent to [place] Caregiver to transport, [facility]. Diagnosis and treatment plan were discussed and questions were answered to the patient's satisfaction. Pt acknowledged understanding of concepts and follow up plan. Specific signs and symptoms that would indicate the need for higher level of care were discussed in detail warranting prompt ER evaluation. Felicita Steen APRN.MARU documented in this encounter [facility] 11-16-2021 Miscellaneous Notes Noted; that should be fine Luke Barger MD documented in this encounter [facility] 11-15-2021 History of Presen t illness Narrative [...] INSJ IO LENS PROSTH W/O ECP Bilateral [facility] ALLERGIES Aloe Vera and Diclofenac [...] Carmen Rock APRN.CNP documented in this encounter [facility] 11-15-2021 Instructions Carmen Rock APRN.CNP - 11/15/2021 [...] Carmen Rock APRN.CNP documented in this encounter [facility] 11-15-2021 Miscellaneous Notes The following approved medication requests have been transmitted electronically. Requested Prescriptions Pending Prescriptions Disp Refills rOPINIRole (REQUIP) 2 mg tablet 90 tablet 3 Sig: Take 1 tablet by mouth daily at bedtime. Filomena Allen APRN.CNP Pharmacy verified in [facility] Patient has been identified by name [...] Maria L Ortiz documented in this encounter [facility] 10-17-2021 History and physical note Images from [...] INSJ IO LENS PROSTH W/O ECP Bilateral [facility] CURRENT MEDICATIONS Current Outpatient Medications [...] entered by the nurse and reviewed by ar Nursing Notes: Radha Arenas LPN 09/04/2021 1:22 [...] anesthetic care. This will be done in [facility] Diagnoses: (L81.9) Pigmented skin lesion of uncertain [...] TIME: 8:47 AM documented in this encounter [facility] 10-11-2021 Miscellaneous Notes The following approved medication [...] Last Labs: 06/28/2021 documented in this encounter [facility] 10-05-2021 Instructions Luzmaria Ruiz APRN.MARKETING DATABASE COORDINATOR - 10/05/2021 9:01 AM EDT PATIENT PREOPERATIVE INSTRUCTIONS Geovanny Baca MD has scheduled you for your procedure at this surgery center: [facility]: [phone] -- [address] [address]. Please read below carefully for your personalized [...] Procedures: - YOU MUST HAVE A RESPONSIBLE SAW RUNNER TAKE YOU HOME. A ICE SCULPTOR OR WATCH PARTS GRINDER CANNOT BE MADE A RESPONSIBLE SAW RUNNER. - We recommend that a responsible person [...] Advance Directive, please fax a copy to [phone] or email to for it to be [...] Luzmaria Ruiz APRN.MARU documented in this encounter [facility] 10-05-2021 History and physical note HISTORY AND [...] INSJ IO LENS PROSTH W/O ECP Bilateral [facility] FAMILY HISTORY Problem Relation Age of [...] or any previous visit (from the past 08107 hour(s)). Assessment Acquired hypothyroidism Assessment: stable on [...] sleepy during the daytime STOP-Bang Score: 7 [id number] Score: Age: >=75 Sex: male CHF history: No Hypertension history: Yes Stroke/TIA/thromboembolism history: No Vascular disease history: No Diabetes history: Yes [id number] Score: 4 ARISCAT Score: Age: 51-80 Preoperative [...] AM PAGER/CONTACT #: documented in this encounter [facility] 09-18-2021 Instructions Sulma Davis - 09/18/2021 9:02 AM EDT The following instructions are important for you related to your office visit today with the [facility] General Surgeons. Instructions After Skin [...] you should contact our office immediately @ [phone] and ask to be transferred to the General Surgery department. documented in this encounter [facility] 09-18-2021 History of Presen t illness Narrative [...] labeled. Sulma Davis documented in this encounter [facility] 09-04-2021 Instructions Geovanny Baca MD - 09/04/2021 [...] do not have a responsible truck driver rubbish collector (family member or friend) with you to [...] preparation [facility] 01/2019 Bowel Preparation Instructions for: [...] exam. 3 01/2019 documented in this encounter [facility] 09-04-2021 History of Presen t illness Narrative [...] LENS PROSTH W/O ECP Bilateral [facility] Current Outpatient Medications Medication Sig meloxicam (MOBIC) [...] entered by the nurse and reviewed by ar Nursing Notes: Radha Arenas LPN 09/04/2021 1:22 [...] anesthetic care. This will be done in [facility] Diagnoses: (L81.9) Pigmented skin lesion of uncertain [...] Radha Arenas LPN documented in this encounter [facility] 09-04-2021 History of Presen t illness Narrative [...] butt cheek. Would like to go to Hydrometeorologist or Surgeon. Past medical history, appointments, medications, [...] INSJ IO LENS PROSTH W/O ECP Bilateral [facility] Family History FAMILY HISTORY Problem Relation [...] Past Histories independently gathered by the clinical support group manager and the remaining scribed note accurately describes my personal service to the patient. Medical Decision Making: Problems: Low: Acute, uncomplicated illness or injury Moderate: 1+ chronic illnesses with change Risk: Moderate: Drug management Medical Decision Making Level: 4 - Moderate uLke Barger MD The documentation for this note was completed by Avis Caruso Ma acting as scribe for Luke Barger MD. September 04, 2021 8:52 AM. Avis Caruso Ma documented in this encounter [facility] 08-28-2021 Miscellaneous Notes See other phone note Luke Barger MD Patient reports he was seen in [facility] on 08/24/21 after a fall. He [...] seen on 09/04. Requesting [facility] in [place]. Please call patient with advise. Thank you. documented in this encounter [facility] 08-27-2021 Miscellaneous Notes Patient went to express [...] something for pain. documented in this encounter [facility] 07-12-2021 Instructions Filomena Allen APRN.CNP - 07/12/2021 2:43 PM EDT 1.) Get repeat labs in 1 month. 2.) Complete stool sample to check for blood. 3.) [facility] [place] 4.) Keep scheduled appointment with Pulmonology at [facility]. 5.) Continue to work on eating a low carb diet, increase protein and veggies. 6.) Follow up in 3 months or sooner as needed. documented in this encounter [facility] 07-12-2021 History of Presen t illness Narrative [...] INSJ IO LENS PROSTH W/O ECP Bilateral [facility] ALLERGIES: Aloe Vera and Diclofenac [...] not work. Will be seeing pulmonology at [facility] in [place] in August. Quit smoking 3 years ago. [...] INSJ IO LENS PROSTH W/O ECP Bilateral [facility] ALLERGIES Aloe Vera and Diclofenac [...] discussed and patient voices understanding. Filomena Allen APRN.MARKETING DATABASE COORDINATOR This note was partially generated using [employer] recognition system. Note was reviewed for accuracy. There may be minor misspellings or grammar miscues with [employer] voice recognition. documented in this encounter [facility] 06-14-2021 History of Presen t illness Narrative [employer] [facility] Enrollment Provider Action/FYI: 3 attempts to reach patient in 2020 for enrollment unsuccessful. [employer] introduction message sent recently- not read Fifth attempt to reach patient Patient referred by: [facility] Debbie Contact made with patient: No - 2nd attempt to reach patient, left another message: Hi my name is Kacie Wood RN and I am calling from the [facility] on behalf of your PCP, Luke Barger MD. We are excited to share with you a new program to help you manage your health. Please call me back at [phone] . I hope you can take the time to speak with me. (Keep encounter open for additional two business days in case patient calls back. Close encounter if no response by end of second business day) Closing: Could not reach the patient after two attempted outreaches. [employer] to retry patient in one week. 5 attempts END OUTREACH documented in this encounter [facility] 05-15-2021 Miscellaneous Notes Detailed message left on pt identified VM that he needs to make appt and get blood work done. Avsi Caruso Ma OK to refill as ordered He is due for office visit and labs as ordered Luke Barger MD documented in this encounter [facility] documented as of this encounter (statuses as of 05/15/2021) [facility] History of Past illness Narrative* Problem Noted [...] of this encounter (statuses as of 06/14/2021) [facility] History of Past illness Narrative* Problem Noted [...] of this encounter (statuses as of 07/12/2021) [facility] History of Past illness Narrative* Problem Noted [...] of this encounter (statuses as of 08/27/2021) [facility] History of Past illness Narrative* Problem Noted [...] of this encounter (statuses as of 08/28/2021) [facility] History of Past illness Narrative* Problem Noted [...] of this encounter (statuses as of 09/04/2021) [facility] History of Past illness Narrative* Problem Noted [...] of this encounter (statuses as of 09/04/2021) [facility] History of Past illness Narrative* Problem Noted [...] of this encounter (statuses as of 09/18/2021) [facility] History of Past illness Narrative* Problem Noted [...] of this encounter (statuses as of 10/05/2021) [facility] History of Past illness Narrative* Problem Noted [...] of this encounter (statuses as of 10/11/2021) [facility] History of Past illness Narrative* Problem Noted [...] of this encounter (statuses as of 10/18/2021) [place] [address]-17-2014 History of Past illness Narrative* Problem Noted [...] of this encounter (statuses as of 11/15/2021) [facility] History of Past illness Narrative* Problem Noted [...] of this encounter (statuses as of 11/16/2021) [facility] History of Past illness Narrative* Problem Noted [...] of this encounter (statuses as of 11/20/2021) [facility] History of Past illness Narrative* Problem Noted [...] of this encounter (statuses as of 12/02/2021) [facility] History of Past illness Narrative* Problem Noted [...] of this encounter (statuses as of 12/26/2021) [facility] History of Past illness Narrative* Problem Noted [...] of this encounter (statuses as of 01/24/2022) [facility] History of Past illness Narrative* Problem Noted [...] of this encounter (statuses as of 04/25/2022) [facility] History of Past illness Narrative* Problem Noted [...] of this encounter (statuses as of 04/25/2022) [facility] History of Past illness Narrative* Problem Noted [...] of this encounter (statuses as of 04/25/2022) [facility] History of Past illness Narrative* Problem Noted [...] of this encounter (statuses as of 05/10/2022) [facility] History of Past illness Narrative* Problem Noted [...] of this encounter (statuses as of 05/10/2022) [facility] History of Past illness Narrative* Problem Noted [...] of this encounter (statuses as of 05/10/2022) [facility] History of Past illness Narrative* Problem Noted [...] of this encounter (statuses as of 10/07/2022) [facility] History of Past illness Narrative* Problem Noted [...] of this encounter (statuses as of 10/15/2022) [facility] History of Past illness Narrative* Problem Noted [...] of this encounter (statuses as of 11/28/2022) [facility] History of Past illness Narrative* Problem Noted [...] of this encounter (statuses as of 12/25/2022) [facility] Diagnosis Hypothyroidism, unspecified type- Primary Essential hypertension Unspecified essential hypertension Acquired hypothyroidism Unspecified hypothyroidism Controlled diabetes mellitus type 2 with complications, unspecified whether half-way insulin use (HCC) Mixed hyperlipidemia BPH with obstruction/lower urinary tract symptoms Hypertrophy of prostate with urinary obstruction and other lower urinary tract symptoms (LUTS) documented [facility]* Diagnosis Medicare annual wellness [...] (HCC) Paralysis agitans [facility] Diagnosis Acute right-sided low back pain without sciatica- Primary Right hip pain Pain in joint, pelvic region and thigh Seborrheic keratosis Other seborrheic keratosis Difficulty sleeping Sleep disturbance, unspecified Atypical mole Benign neoplasm of skin, site unspecified [facility] Diagnosis Pigmented skin lesion of uncertain nature- Primary Atypical mole Benign neoplasm of skin, site unspecified Encounter for screening for malignant neoplasm of colon Special screening for malignant neoplasms, colon [facility] Diagnosis Skin lesion of back- Primary Unspecified disorder of skin and subcutaneous tissue [facility] Diagnosis Pre-operative examination- Primary [...] Thrombocytopenia Thrombocytopenia, unspecified [facility] Diagnosis Acute right-sided low back pain without sciatica Right hip pain Pain in joint, pelvic region and thigh [facility] Diagnosis Encounter for screening for malignant neoplasm of colon- Primary Special screening for malignant neoplasms, colon [facility] Diagnosis RLS (restless legs syndrome)- Primary Restless legs syndrome (RLS) [facility] Diagnosis Essential hypertension Unspecified essential hypertension RLS (restless legs syndrome) Restless legs syndrome (RLS) [facility] Diagnosis Fall, initial encounter- Primary Acute right-sided low back pain without sciatica [facility] Diagnosis Upper back pain- Primary Need for influenza vaccination Need for prophylactic vaccination and inoculation against influenza Wheezing [facility] Diagnosis RLS (restless legs syndrome) Restless legs syndrome (RLS) [facility]* Diagnosis Controlled type 2 diabetes mellitus with complication, without long-term current use of insulin (HCC)- Primary Dry eye syndrome of both eyes Punctate keratitis, bilateral Epiretinal membrane (ERM) of left eye Optic nerve drusen, bilateral Pseudophakia Lens replaced by other means [facility] Diagnosis Hospital discharge follow-up- [...] Thrombocytopenia Thrombocytopenia, unspecified [facility] Diagnosis Hypothyroidism, unspecified type- Primary Essential hypertension Unspecified essential hypertension Controlled type 2 diabetes mellitus with complication, without long-term current use of insulin (HCC) Mixed hyperlipidemia Iron deficiency anemia due to chronic blood loss Iron deficiency anemia secondary to blood loss (chronic) [facility] Diagnosis Hypothyroidism, unspecified type- Primary Essential [...] chronic respiratory failure documented in this encounter [facility] for referral (narrative)* Outpatient Procedure (Routine) - Authorized Specialty Diagnoses / Procedures Referred By Contac t Referred To Contact [facility] Diagnoses Encounter for screening for malignant neoplasm of colon Procedures COLONOSCOPY DIAGNOSTIC COLONOSCOPY FLX DX W/COLLJ SPEC WHEN Geovanny Long MD [address] [place] [address] [facility] [address] [address] Referral ID Status Reason Start Date Expiration Date Visits Requested Visits Authorized [id number] Authorized Auto-Generat ed Referral 09/04/2021 09/04/2022 1 1 [facility] for referral (narrative)* Outpatient Procedure (Routine) - Closed Specialty Diagnoses / Procedures Referred By Contac t Referred To Contact [facility] Diagnoses Encounter for screening for malignant neoplasm of colon Procedures COLONOSCOPY DIAGNOSTIC COLONOSCOPY FLX DX W/COLLJ SPEC WHEN Geovanny Long MD [address] [place] [address] [address] Referral ID Status Reason Start Date Expiration Date V isits Requested Visits Authorized [id number] Closed Auto-Generate d Referral 09/04/2021 09/04/2022 1 1 [facility] Outpatient Procedure (Routine) - Closed Specialty Diagnoses / Procedures Referred By [place] white Referred To Contact [facility] Diagnoses Encounter for screening for malignant neoplasm of colon Procedures COLONOSCOPY DIAGNOSTIC COLONOSCOPY FLX DX W/COLLJ SPEC WHEN [facility] Geovanny Baca MD [address] [place] [address] [facility] [address] [place] [address] Referral ID Status Reason Start Date Expiration Date V isits Requested Visits Authorized [id number] Closed Auto-Generate d Referral 09/04/2021 09/04/2022 1 1 [facility] Instructions Name Dates Details Smoker : How [...] Documents on File Type Date Recorded 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 Advance Directive(s) 09/23/2008 9:59 PM Documents on File Type Date Recorded 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 anation Advance Directive(s) 09/23/2008 9:59 PM [...] lesion Procedures CONSULT TO DERMATOLOGY Filomena Allen APRN.MARKETING DATABASE COORDINATOR [address] [place] [address] Referral ID Status Reason Start Date Expiration Date Visits Requested Visits Authorized [id number] Ref Not Required PCP Requested Referral 07/12/2021 07/12/2022 1 1 Specialty Diagnoses / Procedures Referred By Contac t Referred To Contact General Surgery Diagnoses Seborrheic keratosis Atypical mole Procedures CONSULT TO GENERAL SURGERY OFFICE/OUTPATIENT [facility] 60-74 MINUTES Luke Barger MD [address] [place] [address] Referral ID Status Reason Start Date Expiration Date V isits Requested Visits Authorized [id number] Closed PCP Requested Referral 09/04/2021 09/04/2022 1 [...] TO GENERAL SURGERY OFFICE/OUTPATIENT [facility] 60-74 MINUTES Luke Barger MD [address] [place] [address] Referral ID Status Reason Start Date Expiration Date V isits Requested Visits Authorized [id number] Closed PCP Requested Referral 09/04/2021 09/04/2022 1 [...] or prosecute any alcohol or drug abuse patient.[facility] the event this information is protected by the Federal Confidentiality of Alcohol and Drug Abuse Patient Records regulations: The Federal rules restrict any use of the information to criminally investigate or prosecute any alcohol or drug abuse patient.[facility] the event this information is protected by the Federal Confidentiality of Alcohol and Drug Abuse Patient Records regulations: The Federal rules restrict any use of the information to criminally investigate or prosecute any alcohol or drug abuse patient.[facility]imaIn the event this information is protected by the Federal Confidentiality of Alcohol and Drug Abuse Patient Records regulations: The Federal rules restrict any use of the information to criminally investigate or prosecute any alcohol or drug abuse patient.[facility]imaIn the event this information is protected by the Federal Confidentiality of Alcohol and Drug Abuse Patient Records regulations: The Federal rules restrict any use of the information to criminally investigate or prosecute any alcohol or drug abuse patient.[facility]imaIn the event this information is protected by the Federal Confidentiality of Alcohol and Drug Abuse Patient Records regulations: The Federal rules restrict any use of the information to criminally investigate or prosecute any alcohol or drug abuse patient.[facility]imaIn the event this information is protected by the Federal Confidentiality of Alcohol and Drug Abuse Patient Records regulations: The Federal rules restrict any use of the information to criminally investigate or prosecute any alcohol or drug abuse patient.[facility]imaIn the event this information is protected by the Federal Confidentiality of Alcohol and Drug Abuse Patient Records regulations: The Federal rules restrict any use of the information to criminally investigate or prosecute any alcohol or drug abuse patient.[facility]imaIn the event this information is protected by the Federal Confidentiality of Alcohol and Drug Abuse Patient Records regulations: The Federal rules restrict any use of the information to criminally investigate or prosecute any alcohol or drug abuse patient.[facility]imaIn the event this information is protected by the Federal Confidentiality of Alcohol and Drug Abuse Patient Records regulations: The Federal rules restrict any use of the information to criminally investigate or prosecute any alcohol or drug abuse patient.[facility]imaIn the event this information is protected by the Federal Confidentiality of Alcohol and Drug Abuse Patient Records regulations: The Federal rules restrict any use of the information to criminally investigate or prosecute any alcohol or drug abuse patient.[facility]imaIn the event this information is protected by the Federal Confidentiality of Alcohol and Drug Abuse Patient Records regulations: The Federal rules restrict any use of the information to criminally investigate or prosecute any alcohol or drug abuse patient.[facility]imaIn the event this information is protected by the Federal Confidentiality of Alcohol and Drug Abuse Patient Records regulations: The Federal rules restrict any use of the information to criminally investigate or prosecute any alcohol or drug abuse patient.[facility]imaIn the event this information is protected by the Federal Confidentiality of Alcohol and Drug Abuse Patient Records regulations: The Federal rules restrict any use of the information to criminally investigate or prosecute any alcohol or drug abuse patient.[facility]imaIn the event this information is protected by the Federal Confidentiality of Alcohol and Drug Abuse Patient Records regulations: The Federal rules restrict any use of the information to criminally investigate or prosecute any alcohol or drug abuse patient.[facility]imaIn the event this information is protected by the Federal Confidentiality of Alcohol and Drug Abuse Patient Records regulations: The Federal rules restrict any use of the information to criminally investigate or prosecute any alcohol or drug abuse patient.[facility]imaIn the event this information is protected by the Federal Confidentiality of Alcohol and Drug Abuse Patient Records regulations: The Federal rules restrict any use of the information to criminally investigate or prosecute any alcohol or drug abuse patient.[facility]imaIn the event this information is protected by the Federal Confidentiality of Alcohol and Drug Abuse Patient Records regulations: The Federal rules restrict any use of the information to criminally investigate or prosecute any alcohol or drug abuse patient.[facility]imaIn the event this information is protected by the Federal Confidentiality of Alcohol and Drug Abuse Patient Records regulations: The Federal rules restrict any use of the information to criminally investigate or prosecute any alcohol or drug abuse patient.[facility] the event this information is protected by the Federal Confidentiality of Alcohol and Drug Abuse Patient Records regulations: The Federal rules restrict any use of the information to criminally investigate or prosecute any alcohol or drug abuse patient.[facility]imaIn the event this information is protected by the Federal Confidentiality of Alcohol and Drug Abuse Patient Records regulations: The Federal rules restrict any use of the information to criminally investigate or prosecute any alcohol or drug abuse patient.[facility]imaIn the event this information is protected by the Federal Confidentiality of Alcohol and Drug Abuse Patient Records regulations: The Federal rules restrict any use of the information to criminally investigate or prosecute any alcohol or drug abuse patient.[facility]imaIn the event this information is protected by the Federal Confidentiality of Alcohol and Drug Abuse Patient Records regulations: The Federal rules restrict any use of the information to criminally investigate or prosecute any alcohol or drug abuse patient.[facility]imaIn the event this information is protected by the Federal Confidentiality of Alcohol and Drug Abuse Patient Records regulations: The Federal rules restrict any use of the information to criminally investigate or prosecute any alcohol or drug abuse patient.[facility]imaIn the event this information is protected by the Federal Confidentiality of Alcohol and Drug Abuse Patient Records regulations: The Federal rules restrict any use of the information to criminally investigate or prosecute any alcohol or drug abuse patient.[facility]imaIn the event this information is protected by the Federal Confidentiality of Alcohol and Drug Abuse Patient Records regulations: The Federal rules restrict any use of the information to criminally investigate or prosecute any alcohol or drug abuse patient.[facility]imaIn the event this information is protected by the Federal Confidentiality of Alcohol and Drug Abuse Patient Records regulations: The Federal rules restrict any use of the information to criminally investigate or prosecute any alcohol or drug abuse patient.[facility] Care Teams (unrecognized sec tion and content) Return To Service Inspector Relationship Specialty Start Date End Date Luke Barger MD [address] [place] [address] PCP - General Family Practice 05/22/18 Return To Service Inspector Relationship Specialty Start Date End Date Luke Barger MD [facility] [place] [address] PCP - General Family Practice 05/22/18 Return To Service Inspector Relationship Specialty Start Date End Date Luke Barger MD [address] [place] [address] PCP - General Family Practice 05/22/18 Return To Service Inspector Relationship Specialty Start Date End Date Luke Barger MD [facility] [place] [address] PCP - General Family Practice 05/22/18 Return To Service Inspector Relationship Specialty Start Date End Date Luke Barger MD [address] [facility] [place] [address] PCP - General Family Practice 05/22/18 Return To Service Inspector Relationship Specialty Start Date End Date Luke Barger MD [address] [place] [address] [place] [address] PCP - General Family Practice 05/22/18 Return To Service Inspector Relationship Specialty Start Date End Date Luke Barger MD [address] [place] [address] PCP - General Family Practice 05/22/18 Return To Service Inspector Relationship Specialty Start Date End Date Luke Barger MD [address] [place] [address] PCP - General Family Practice 05/22/18 Return To Service Inspector Relationship Specialty Start Date End Date Luke Barger MD [address] [place] [address] PCP - General Family Practice 05/22/18 Return To Service Inspector Relationship Specialty Start Date End Date Luke Barger MD [address] [place] [address] PCP - General Family Medicine 05/22/18 Return To Service Inspector Relationship Specialty Start Date End Date Luke Barger MD [address] [place] [address] PCP - General Family Medicine 05/22/18 Return To Service Inspector Relationship Specialty Start Date End Date Luke Barger MD [address] [place] [address] PCP - General Family Medicine 05/22/18 Return To Service Inspector Relationship Specialty Start Date End Date Luke Barger MD [address] [place] [address] PCP - General Family Medicine 05/22/18 Return To Service Inspector Relationship Specialty Start Date End Date Luke Barger MD [address] [place] [address] PCP - General Family Medicine 05/22/18 Return To Service Inspector Relationship Specialty Start Date End Date Luke Barger MD [address] [place] [address] PCP - General Family Medicine 05/22/18 Return To Service Inspector Relationship Specialty Start Date End Date Luke Barger MD [address] [place] [address] PCP - General Family Medicine 05/22/18 Return To Service Inspector Relationship Specialty Start Date End Date Luke Barger MD [address] [place] [address] PCP - General Family Medicine 05/22/18 Return To Service Inspector Relationship Specialty Start Date End Date Luke Barger MD [address] [place] [address] PCP - General Family Medicine 05/22/18 Return To Service Inspector Relationship Specialty Start Date End Date Luke Barger MD [address] [place] [address] PCP - General Family Medicine 05/22/18 Return To Service Inspector Relationship Specialty Start Date End Date Luke Barger MD [address] [place] [address] PCP - General Family Medicine 05/22/18 Return To Service Inspector Relationship Specialty Start Date End Date Luke Barger MD [address] [place] [address] PCP - General Family Medicine 05/22/18 (unrecognized sect ion and content) No Status Records FoundNo Status Records Found INFORMATION SOURCE (unrecogn ized section and content) DATE CREATED AUTHOR AUTHOR'S ORGANIZ ATION 12/26/2022 [facility] FOR RECORDS PERTAINING TO PATIENTS WHO [...] PRIMARY CLINICAL RECORDS. [facility] [employer] [facility]. provides no warranty or guarantee of the accuracy or completeness of information in this document.
== END | disposition home or self-care (01) ==
LOC: US 07:15
PROVIDERS: PCP Family Medicine Geriatric Medicine; Visit Provider Family Medicine Geriatric Medicine
DX: K74.60 Unspecified cirrhosis of liver (principal)
CPT/HCPCS: 76705

== ENCOUNTER → 2023-03-31 | Outpatient (CLI) | payer MEDICARE, OTHER, SELFPAY ==
--- OUTSIDE RECORDS SUMMARY | 2023-03-31 10:45 | XMS RPT_ITS | CCD ---
Author Name Unknown Address [address] [place] [address] Organization [facility] Care Team Providers Care Fisher Lampara Net Name Role Phone SaranyaRadha blanco E Unavailable Ming Garrido Unavailable Physical Therapy, [facility] Unavailable Bebeto Marrufo Unavailable [phone] Ryan Shine Unavailable Matheus Mills Unavailable [phone] Darrian Martin Unavailable [phone] Mansi Sanabria Unavailable Darrian Martin Unavailable [phone] Eboni Cisse Unavailable Martinez Srinivasan Unavailable [...] Translations: [ALOE VERA] Drug Allergy 02-24-2014 Rash [facility] (20 sources) Diclofenac; Translations: [DICLOFENAC] Drug Allergy 02-28-2011 Intolerance [facility] Medications Current Medications Medication Drug Class(es) Dates Sig (Normalized) Sig (Original) [id number] 200 actuat albuterol 0.09 mg/actuat metered dose [...] 88.91 kg Luke Barger MD Work Phone: [facility] 10-14-2022 18:04-0400 Diastolic blood pressure 80 mm[Hg] Luke Barger MD Work Phone: [facility] 10-14-2022 18:04-0400 Heart rate 72 /min Luke Barger MD Work Phone: [facility] 10-14-2022 18:04-0400 Respiratory rate 18 /min Luke Barger MD Work Phone: [facility] 10-14-2022 18:04-0400 Systolic blood pressure 130 mm[Hg] Luke Barger MD Work Phone: [facility] 05-09-2022 10:11-0400 Body weight 85.19 kg Luke Barger MD Work Phone: [facility] 05-09-2022 10:11-0400 Diastolic blood pressure 64 mm[Hg] Luke Barger MD Work Phone: [facility] 05-09-2022 10:11-0400 Heart rate 76 /min Luke Barger MD Work Phone: [facility] 05-09-2022 10:11-0400 Respiratory rate 20 /min Luke Barger MD Work Phone: [facility] 05-09-2022 10:11-0400 SaO2% (BldA) [Mass fraction] 99 % Luke Barger MD Work Phone: [facility] 05-09-2022 10:11-0400 Systolic blood pressure 130 mm[Hg] Luke Barger MD Work Phone: [facility] 01-24-2022 08:07-0500 Body temperature 98.2 [degF] Luke Barger MD Work Phone: [facility] 01-24-2022 08:07-0500 Body weight 105.69 kg Luke Barger MD Work Phone: [facility] 01-24-2022 08:07-0500 Diastolic blood pressure 90 mm[Hg] Luke Barger MD Work Phone: [facility] 01-24-2022 08:07-0500 Heart rate 78 /min Luke Barger MD Work Phone: [facility] 01-24-2022 08:07-0500 Respiratory rate 20 /min Luke Barger MD Work Phone: [facility] 01-24-2022 08:07-0500 SaO2% (BldA) [Mass fraction] 94 % Luke Barger MD Work Phone: [facility] 01-24-2022 08:07-0500 Systolic blood pressure 150 mm[Hg] Luke Barger MD Work Phone: [facility] 12-02-2021 12:17-0400 Body temperature 97.59 [degF] Felicita Celsa FIXTURE MAKER.BEEF CATTLE FARM MANAGER Work Phone: [facility] 12-02-2021 12:17-0400 Body weight 99.79 kg Felicita Celsa FIXTURE MAKER.BEEF CATTLE FARM MANAGER Work Phone: [facility] 12-02-2021 12:17-0400 Diastolic blood pressure 76 mm[Hg] Felicita Celsa FIXTURE MAKER.BEEF CATTLE FARM MANAGER Work Phone: [facility] 12-02-2021 12:17-0400 Heart rate 94 /min Felicita Celsa FIXTURE MAKER.BEEF CATTLE FARM MANAGER Work Phone: [facility] 12-02-2021 12:17-0400 Respiratory rate 21 /min Felicita Celsa FIXTURE MAKER.BEEF CATTLE FARM MANAGER Work Phone: [facility] 12-02-2021 12:17-0400 SaO2% (BldA) [Mass fraction] 95 % Fleicita Celsa FIXTURE MAKER.BEEF CATTLE FARM MANAGER Work Phone: [facility] 12-02-2021 12:17-0400 Systolic blood pressure 182 mm[Hg] Felicita Celsa FIXTURE MAKER.BEEF CATTLE FARM MANAGER Work Phone: [facility] 11-15-2021 18:44-0400 Body temperature 97.2 [degF] Carmen Praisler-Wood FIXTURE MAKER.BEEF CATTLE FARM MANAGER Work Phone: [facility] 11-15-2021 18:44-0400 Body weight 96.07 kg Carmen Praisler-Wood FIXTURE MAKER.BEEF CATTLE FARM MANAGER Work Phone: [facility] 11-15-2021 18:44-0400 Diastolic blood pressure 78 mm[Hg] Carmen Praisler-Wood FIXTURE MAKER.BEEF CATTLE FARM MANAGER Work Phone: [facility] 11-15-2021 18:44-0400 Heart rate 79 /min Carmen Praisler-Wood FIXTURE MAKER.BEEF CATTLE FARM MANAGER Work Phone: [facility] 11-15-2021 18:44-0400 Respiratory rate 18 /min Acrmen Praisler-Wood FIXTURE MAKER.BEEF CATTLE FARM MANAGER Work Phone: [facility] 11-15-2021 18:44-0400 SaO2% (BldA) [Mass fraction] 97 % Carmen Praisler-Wood FIXTURE MAKER.BEEF CATTLE FARM MANAGER Work Phone: [facility] 11-15-2021 18:44-0400 Systolic blood pressure 156 mm[Hg] Carmen Praisler-Wood FIXTURE MAKER.BEEF CATTLE FARM MANAGER Work Phone: [facility] 10-17-2021 09:59-0400 Diastolic blood pressure 71 mm[Hg] Geovanny Baca MD Work Phone: [facility] 10-17-2021 09:59-0400 Heart rate 65 /min Geovanny Baca MD Work Phone: [facility] 10-17-2021 09:59-0400 Respiratory rate 28 /min Geovanny Baca MD Work Phone: [facility] 10-17-2021 09:59-0400 SaO2% (BldA) [Mass fraction] 99 % Geovanny Baca MD Work Phone: [facility] 10-17-2021 09:59-0400 Systolic blood pressure 166 mm[Hg] Geovanny Baca MD Work Phone: [facility] 10-17-2021 09:45-0400 Body temperature 98.6 [degF] Geovanny Baca MD Work Phone: [facility] 10-05-2021 08:45-0400 Body height 166.4 cm Pacc 1 Work Phone: [facility] 10-05-2021 08:45-0400 Body temperature 97 [degF] Pacc 1 Work Phone: [facility] 10-05-2021 08:45-0400 Body weight 97.52 kg Pacc 1 Work Phone: [facility] 10-05-2021 08:45-0400 Diastolic blood pressure 68 mm[Hg] Pacc 1 Work Phone: [facility] 10-05-2021 08:45-0400 Heart rate 67 /min Pacc 1 Work Phone: [facility] 10-05-2021 08:45-0400 Respiratory rate 16 /min Pacc 1 Work Phone: [facility] 10-05-2021 08:45-0400 SaO2% (BldA) [Mass fraction] 93 % Pacc 1 Work Phone: [facility] 10-05-2021 08:45-0400 Systolic blood pressure 134 mm[Hg] Pacc 1 Work Phone: [facility] 09-04-2021 13:16-0400 Body height 167.6 cm Geovanny Baca MD Work Phone: [facility] 07-19-2022 13:16-0400 Body temperature 97 [degF] Geovanny Baca MD Work Phone: [facility] 09-04-2021 13:16-0400 Body weight 96.62 kg Geovanny Baca MD Work Phone: [facility] 09-04-2021 13:16-0400 Diastolic blood pressure 62 mm[Hg] Geovanny Baca MD Work Phone: [facility] 09-04-2021 13:16-0400 Heart rate 99 /min Geovanny Baca MD Work Phone: [facility] 09-04-2021 13:16-0400 SaO2% (BldA) [Mass fraction] 93 % Geovanny Baca MD Work Phone: [facility] 09-04-2021 13:16-0400 Systolic blood pressure 156 mm[Hg] Geovanny Baca MD Work Phone: [facility] 09-04-2021 08:43-0400 Body weight 97.52 kg Luke Barger MD Work Phone: [facility] 09-04-2021 08:43-0400 Diastolic blood pressure 74 mm[Hg] Luke Barger MD Work Phone: [facility] 09-04-2021 08:43-0400 Heart rate 62 /min Luke Barger MD Work Phone: [facility] 09-04-2021 08:43-0400 Respiratory rate 16 /min Luke Barger MD Work Phone: [facility] 09-04-2021 08:43-0400 Systolic blood pressure 138 mm[Hg] Luke Barger MD Work Phone: [facility] 07-12-2021 14:22-0400 Body height 169 cm Filomena Allen FIXTURE MAKER.BEEF CATTLE FARM MANAGER Work Phone: [facility] 07-12-2021 14:22-0400 Body weight 102.06 kg Filomena Allen FIXTURE MAKER.BEEF CATTLE FARM MANAGER Work Phone: [facility] 07-12-2021 14:22-0400 Diastolic blood pressure 70 mm[Hg] Filomena Allen FIXTURE MAKER.BEEF CATTLE FARM MANAGER Work Phone: [facility] 07-12-2021 14:22-0400 Heart rate 65 /min Filomenajuventino Allen FIXTURE MAKER.BEEF CATTLE FARM MANAGER Work Phone: [facility] 07-12-2021 14:22-0400 Respiratory rate 16 /min Filomenajuventino Allen FIXTURE MAKER.BEEF CATTLE FARM MANAGER Work Phone: [facility] 07-12-2021 14:22-0400 SaO2% (BldA) [Mass fraction] 95 % Filomena Tiffany FIXTURE MAKER.BEEF CATTLE FARM MANAGER Work Phone: [facility] 07-12-2021 14:22-0400 Systolic blood pressure 160 mm[Hg] Filomenajuventino Allen FIXTURE MAKER.BEEF CATTLE FARM MANAGER Work Phone: [facility] 01-13-2018 13:06-0500 BMI (Body Mass Index) 35.7 kg/m2 [facility] Work Phone: 01-13-2018 13:06-0500 Body Temperature 98.7 [degF] [facility] Work Phone: Encounters Encounter Date Encounter Type Care Provider Facility Start: 12-24-2022 Telephone encounter Luek burris MD Work Phone: [facility] [...] cleared fda spec home use Richard Agee FIXTURE MAKER.CONTINUOUS DRYOUT OPERATOR HELPER Work Phone: Start: 10-17-2021 Colonoscopy Carmen Rock FIXTURE MAKER.BEEF CATTLE FARM MANAGER Work Phone: Start: 07-12-2021 Adult depression screening assessment Filomena Allen FIXTURE MAKER.BEEF CATTLE FARM MANAGER Work Phone: Start: 07-21-2019 End: 07-21-2019 Blood [...] 05-22-2018 Adult depression screening assessment Adolfo Ryder FIXTURE MAKER.BEEF CATTLE FARM MANAGER Work Phone: Start: 01-09-2018 End: 01-09-2018 Emergency Department Summary Comments: See Note; NOTES: [facility] Medical Records Department [address] [place] [address] Emergency Department Summary 01/09/18 0645 MR#: [id number] Acct: [id number] Name: RICHARD VARGAS Rep #: [id number] : 1945 72 From: Ermelinda Deng MD [...] Parkinson's disease This note was generated with [employer] dictation software. It may contain incorrect words, spelling, and punctuation that were not noted in review of the chart prior to signing ED Disposition - Plan for ED Patient: Chief Complaint: Syncope Referrals: Radha Torres, SQL SERVER DEVELOPER-C [Primary Care Provider] - What to do if you have Problems For any increased pain, shortness of breath, bleeding, nausea or vomiting, chest pain, or any unexpected problems, contact your Primary Care Provider. Call [facility] ([phone]) or report to the closest Emergency Room. Call 911 if necessary. 01/09/18 0753 <Electronically signed by Ermelinda Deng MD> Date Ermelinda Deng MD Cosigner Signature (If Indicated): Date CC: Radha Torres Start: 01-09-2018 End: 01-09-2018 Brain/Head without Contrast Comments: See Note; NOTES: [facility] Imaging Services [address] [place] [address] Brain/Head without Contrast MR#: [id number] Acct: [id number] Name: RICHARD VARGAS Rep #: [id number] : 1945 M 72 From: James Faustin MD PCP: Radha Torres NP Status: REG ER Study: Brain/Head without Contrast Date of Exam: 01/09/18 Exam# [id number] Ordering Dr: Ermelinda Deng MD STUDY: CT [...] CC: Radha Torres NP; Ermelinda Deng MD Freelance Digital Project Manager: Signed Radha Torres Start: 01-09-2018 End: 01-09-2018 Chest 1 View Comments: See Note; NOTES: [facility] Imaging Services [address] [place] [address] Chest 1 View MR#: [id number] Acct: [id number] Name: RICHARD VARGAS Rep #: [id number] : 1945 M 72 From: James Faustin MD PCP: Radha Torres NP Status: REG ER Study: Chest 1 View Date of Exam: 01/09/18 Exam# [id number] Ordering Dr: Ermelinda Deng MD STUDY: X-RAY [...] CC: Radha Torres NP; Ermelinda Deng MD Freelance Digital Project Manager: Signed Radha Torres Start: 02-26-2017 End: 02-26-2017 Chest WITH Contrast Comments: See Note; NOTES: [facility] Imaging Services [address] [place] [address] Chest WITH Contrast MR#: [id number] Acct: [id number] Name: RICHARD VARGAS Rep #: [id number] : 1945 M 71 From: Amadeo Dc MD PCP: Cindy Maria DO Status: REG CLI Study: Chest WITH Contrast Date of Exam: 02/26/17 Exam# [id number] Ordering Dr: Cindy Maria DO STUDY: CT [...] spleen. Although not fully included in the [id number], spleen appears upper limits of normal size. [...] Service support , CC: Cindy Maria DO Freelance Digital Project Manager: Signed Cindy Maria Work Phone: Start: 02-27-2016 End: 02-27-2016 Emergency Department Summary Comments: See Note; NOTES: [facility] Medical Records Department [address] [place] [address] Emergency Department Summary MR#: [id number] Acct: [id number] Name: RICHARD VARGAS Rep #: [id number] : 1945 70 From: Richard Miranda MD PCP: Piyush Sanabria Status: [facility] ER DATE OF SERVICE: 02/27/2016 CHIEF [...] Discharge. Richard Miranda MD T: NTS JOB: [id number] 02/27/16 033 <Electronically signed by Richard Miranda MD> Date Richard Miranda MD Cosigner Signature (If Indicated): Date CC: Piyush Sanabria Date Dictated: 02/27/16150 Date Transcribed: 02/27/16150 Freelance Digital Project Manager: Corey Torres Start: 02-27-2016 End: 02-27-2016 Discharge Instruction Comments: See Note; NOTES: [facility] Medical Records Department [address] [place] [address] Discharge Instruction 02/27/16 0149 MR#: [id number] Acct: [id number] Name: SOHANRICHARD Rep #: [id number] : 1945 70 From: Richard Miranda MD [...] your Primary Care Provider. Call [facility] ([phone]) or report to the closest Emergency Room. Call 911 if necessary. 02/27/16 0154 <Electronically signed by Richard Miranda MD> Date Richard Ruth MD Cosigner Signature (If Indicated): Date CC: Piyush Torres Start: 11-30-2015 Biopsy of bone marrow Radha Torres Plan of Treatment Date Care Activity Detail Author Start: 07-19-2029 Urine microalbumin profile [facility] Start: 10-17-2026 Colonoscopy COLONOSCOPY [facility] Start: 10-17-2026 COLORECTAL CANCER SCREENING COLORECTAL CANCER SCREENING [facility] Start: 10-15-2023 ANNUAL PCP TEAM CHRONIC DISEASE VISIT ANNUAL PCP TEAM CHRONIC DISEASE VISIT [facility] Start: 05-14-2023 Hemoglobin A1c/Hemoglobin.total in Blood HbA1C [facility] Start: 05-10-2023 ANNUAL PCP TEAM CHRONIC DISEASE VISIT ANNUAL PCP TEAM CHRONIC DISEASE VISIT [facility] Start: 04-26-2023 Hepatitis C antibody, confirmatory test DILATED RETINAL EXAM [facility] Start: 01-24-2023 ANNUAL PCP TEAM CHRONIC DISEASE VISIT ANNUAL PCP TEAM CHRONIC DISEASE VISIT [facility] Start: 11-09-2022 Hemoglobin A1c/Hemoglobin.total in Blood HBA1C [facility] Start: 10-18-2022 Influenza vaccination [facility] Start: 10-14-2022 End: 12-14-2022 CBC panel - Blood by Automated count CBC Lab Routine Essential hypertension Expected: 10/14/2022 (Approximate), Expires: 12/14/2022 [facility] Work Phone: Immunizations Immunization Date Immunization Notes Care Provider Georgina keller 01-24-2022 influenza, high-dose , quadrivalent vaccine (FLUZONE HIGH DOSE QUADRIVALENT) Luke Barger MD Work Phone: [facility] 01-24-2022 influenza virus vaccine, unspecified formulation Filomena Allen FIXTURE MAKER.BEEF CATTLE FARM MANAGER Work Phone: [facility] 11-19-2019 influenza, high-dose , quadrivalent vaccine (FLUZONE HIGH DOSE QUADRIVALENT) Adolfo Ryder APRN.BEEF CATTLE FARM MANAGER Work Phone: [facility] 07-20-2019 tetanus toxoid, reduced diphtheria toxoid, and acellular pertussis vaccine, adsorbed Adolfo Caldwellil FIXTURE MAKER.BEEF CATTLE FARM MANAGER Work Phone: [facility] Work Phone: 11-06-2018 influenza, high dose seasonal, preservative-free Adolfo Rosalio FIXTURE MAKER.BEEF CATTLE FARM MANAGER Work Phone: [facility] 02-18-2016 tetanus and diphther ia toxoids, adsorbed, preservative free, for adult use (2 Lf of tetanus toxoid and 2 Lf of diphtheria toxoid) [facility] Work Phone: 04-13-2015 pneumococcal conjuga te vaccine, 13 valent Adolfo Rosalio FIXTURE MAKER.BEEF CATTLE FARM MANAGER Work Phone: [facility] Work Phone: 12-20-2014 influenza, high dose seasonal, preservative-free Adolfo Rosalio FIXTURE MAKER.BEEF CATTLE FARM MANAGER Work Phone: [facility] 02-17-2014 influenza, seasonal, injectable [facility] Work Phone: 11-01-2013 influenza, seasonal, injectable Adolfo Rosalio FIXTURE MAKER.BEEF CATTLE FARM MANAGER Work Phone: [facility] 11-01-2013 zoster vaccine, live Adolfo C ecil FIXTURE MAKER.BEEF CATTLE FARM MANAGER Work Phone: [facility] 11-04-2012 influenza virus vaccine, unspecified formulation Adolfo Rosalio FIXTURE MAKER.BEEF CATTLE FARM MANAGER Work Phone: [facility] 02-15-2009 pneumococcal polysaccharide vaccine, 23 valent Adolfo Rosalio FIXTURE MAKER.BEEF CATTLE FARM MANAGER Work Phone: [facility] 12-16-2008 influenza virus vaccine, unspecified formulation Adolfo Rosalio FIXTURE MAKER.BEEF CATTLE FARM MANAGER Work Phone: [facility] Work Phone: 12-23-2007 influenza virus vaccine, unspecified formulation Adolfo Rosalio FIXTURE MAKER.BEEF CATTLE FARM MANAGER Work Phone: [facility] Work Phone: 11-21-2005 tetanus toxoid, reduced diphtheria toxoid, and acellular pertussis vaccine, adsorbed Adolfo Rosalio FIXTURE MAKER.BEEF CATTLE FARM MANAGER Work Phone: [facility] Work Phone: Payers Date Payer Category Payer Medicare MEDICARE MEDICAR E A AND B [id number] 2008-Present [phone] [place] [address] Medicare [id number] 2008 Medicare MEDICARE MEDICAR E A AND B [id number] 2008-Present [phone] [place] [address] Medicare [id number] 2008 Medicare [id number] 2005 Private Health Insurance C[employer] W[employer] PPO [id number] 2005-Present [phone] [address] [place] [address] PPO [id number] 2005 Private Health Insurance CIGDALILA LERNERA PPO [id number] 2005-Present [phone] [address] [place] [address] PPO [id number] 2005 Private Health Insurance [id number] Unknown Social History Date Type Detail Facility Start: 05-09-2022 End: 10-10-2022 Alcohol Use Former smoker Comprehensive Manager Housekeeping al Medicine Work Phone: Clinical Notes 06-03-2013 [...] Lucretia Arriaza Ma documented in this encounter [facility] 11-27-2022 Miscellaneous Notes TC to Pt on moving appt to an earlier time on 12/09/22. Pt declined due to transportation problems. Pt also stated being in [facility] ER and had fluid drained from abdomin. Offered to move appt up to this week or next. Pt declined, stating He will keep the appt that is scheduled. Luz Sykes LPN documented in this encounter [facility] 10-14-2022 Note HNO ID: [id number] Author: Luke Barger MD Service: ? Author [...] been taking. Pt here today for a [facility] ED follow up. Pt was started on Lasix 40 mg daily on 10/07/22 due to having issues with urine retention. He still has swelling in his feet and ankles. It does not improve over night. He states he was having some pain in the legs, took some Tylenol which helped. He was in [place] from Feb to Fe after having heart attack. His daughter lives with him. Depression: pt was on lexapro but stated it was stopped while he was in the assisted. He would like to go back on it. He is feeling depressed. Denies SI/HI. He says he has an appt in 2 days with someone at [facility] for his ascites. Pt presented to [facility] ED on 10/04/22 with shortness of breath. [facility] ED visit: HPI History of Present [...] INSJ IO LENS PROSTH W/O ECP Bilateral [facility] Family History FAMILY HISTORY Problem Relation Age of Onset Stroke Mother other (cirrhosis) Father Diabetes Br (more content not included)... [facility] 10-14-2022 Instructions Luke Barger MD - 10/14/2022 6:35 PM EDT Bring your medications with you at your next appointment Get lab work done a few days before your appointment documented in this encounter [facility] 10-14-2022 History of Presen t illness Narrative Chief Complaint Patient presents with: ER F/U HPI Richard Vargas is a 77 year old male who presents here today for ER Follow Up. Pt states he has not been taking any of his medications. Poor historia;n not sure what he has been taking. Pt here today for a [facility] ED follow up. Pt was started on Lasix 40 mg daily on 10/07/22 due to having issues with urine retention. He still has swelling in his feet and ankles. It does not improve over night. He states he was having some pain in the legs, took some Tylenol which helped. He was in [place] from Feb to Mar after having heart attack. His daughter lives with him. Depression: pt was on lexapro but stated it was stopped while he was in the assisted. He would like to go back on it. He is feeling depressed. Denies SI/HI. He says he has an appt in 2 days with someone at [facility] for his ascites. Pt presented to [facility] ED on 10/04/22 with shortness of breath. 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 oJhn Previous Surgical History PAST SURGICAL HISTORY Procedure [...] INSJ IO LENS PROSTH W/O ECP Bilateral [facility] Family History FAMILY HISTORY Problem Relation Age [...] Completed HPV VACCINE Aged Out Data reviewed [facility] ER reports ASSESSMENT/PLAN: 1. Hypothyroidism, unspecified [...] Past Histories independently gathered by the clinical network support manager and the remaining scribed note accurately [...] Avis Caruso Ma documented in this encounter [facility] 10-07-2022 Miscellaneous Notes Pt notified [...] calls to report he was at the [facility] ER 10/05 for SOB and retaining [...] Taylor Hammond LPN documented in this encounter [facility] 05-10-2022 Miscellaneous Notes OK; Rx sent to Thiago Barger MD Patient calls to request Synthroid prescription be sent to [facility]. Patient reports he is no longer using [facility]. Last OV: 05/09/2022 Next OV: 06/14/2022 Bertha Yost RN documented in this encounter [facility] 05-10-2022 Miscellaneous Notes Called and [...] Luke Barger MD documented in this encounter [facility] 05-09-2022 Note HNO ID: [id number] Author: Luke Barger MD Service: ? Author Type: Physician Type: Progress Notes Filed: 05/09/2022 5:21 PM Note Text: Chief Complaint Patient presents with: SNF follow up HPI Richard Vargas is a 76 year old male who presents here today for a SNF follow up. Pt here today for a SNF f/u. Pt admitted into [facility] on 03/06/22 with increased sob and confusion. Pt discharged on 03/13/22 to [place]. Pt d/c home on 04/11/22. Daughter lives [...] 2 L at bedtime. Receives supplies through [employer]. Former smoker, quit in 2019. Falls - Has had several falls over the past year. Denies any new falls he believes since being d/c from [place] on 04/11/22. Generally uses a walker/rollator or wheelchair. Pt states that when he was a [place], [facility] came out 2-3 x per week [...] - Requested for PT OT eval and dialysis social worker to assist with discharge planning 13. Pancytopenia -due to chronic liver disease, monitoring with daily CBCs Past medical history, appointments, medications, allergies reviewed. Previous Medical History PAST MEDICAL HISTORY (more content not included)... [facility] 05-09[facility]2022 Instructions Lucretia Arriaza Ma - 05/09/2022 10:44 AM EDT Schedule follow up with Dr. Hdez (Toggler/GI) who you seen at [facility]. They will review your stomach and liver issues. Phone #: [phone]. Follow up in 1 month. Lexapro prescription was sent to local pharmacy. Complete labs today, will call with results. documented in this encounter [facility] 05-09-2022 History of Presen t illness Narrative Chief Complaint Patient presents with: SNF follow up HPI Richard Vargas is a 76 year old male who presents here today for a SNF follow up. Pt here today for a SNF f/u. Pt admitted into [facility] on 03/06/22 with increased sob and confusion. Pt discharged on 03/13/22 to [place]. Pt d/c home on 04/11/22. Daughter lives [...] to himself when he remembers. Follows with [facility], wants to get new [...] 2 L at bedtime. Receives supplies through [employer]. Former smoker, quit in 2019. Falls - Has had several falls over the past year. Denies any new falls he believes since being d/c from [place] on 04/11/22. Generally uses a walker/rollator or wheelchair. Pt states that when he was a [employer], [facility] came out 2-3 x per week [...] - Requested for PT OT eval and dialysis social worker to assist with discharge planning [...] INSJ IO LENS PROSTH W/O ECP Bilateral [facility] Family History FAMILY HISTORY Problem Relation Age [...] SCREENING Completed PNEUMOCOCCAL: 65+ Completed Data reviewed [facility] documents ASSESSMENT/PLAN: 1. Hospital discharge follow-up [...] Past Histories independently gathered by the clinical network support manager and the remaining scribed note accurately [...] Lucretia Arriaza Ma documented in this encounter [facility] 04-25-2022 Miscellaneous Notes Pt notified [...] medication list. Can this be sent to [facility] pharmacy in [place]. Patient believes he misplaced that RX and can not find the medication, he believes he threw them away in all house cleaning. Patient has been identified by name and birthdate. Person calling: self Call patient at: at home [phone] (home) [phone] (cell) Was an appointment scheduled: No Closing statement: Results or non-symptom based questions: Thank you for calling [facility], your call will be returned within the next business day. Mirriad documented in this encounter [facility] 04-25-2022 Note HNO ID: [id number] Author: Bandar Cardona, GENESIS Service: ? Author Type: FLEET MANAGER/DISPATCH Type: Progress Notes Filed: 04/25/2022 9:17 AM Note Text: 1. Controlled type 2 diabetes mellitus with complication, without long-term current use of insulin (HCC) Risk of diabetic changes and vision loss can be minimized by tight control of blood sugar, blood pressure, and cholesterol levels. Educated patient to continue care with primary care doctor and/or insulation batting machine operator to maintain optimum levels as they are [...] Cardona, OD April 25, 2022 9:16 AM [facility] 04-25-2022 History of Presen t illness Narrative 1. Controlled type 2 diabetes mellitus with complication, without long-term current use of insulin (HCC) Risk of diabetic changes and vision loss can be minimized by tight control of blood sugar, blood pressure, and cholesterol levels. Educated patient to continue care with primary care doctor and/or insulation batting machine operator to maintain optimum levels as they are [...] 2022 9:16 AM documented in this encounter [facility] 04-25-2022 Instructions Bandar Cardona, OD - 04/25/2022 9:10 AM EST Use Systane, Refresh or Blink gel once in the morning and once before bed in both eyes documented in this encounter [facility] 04-25-2022 Miscellaneous Notes Detailed VM [...] be sent today. Please call him at [phone] when sent. Patient has been identified by name and date of : Yes Requested Prescriptions Pending Prescriptions Disp Refills rOPINIRole (REQUIP) 2 mg tablet 90 tablet 3 Sig: Take 1 tablet by mouth daily at bedtime. RX INSTRUCTIONS: Patient aware RX will be sent to pharmacy. No need to notify patient. Arely Delarosa Pss documented in this encounter [facility] 01-24-2022 Note HNO ID: [id number] Author: Luke Barger MD Service: ? Author [...] back pain without sciatica, was sent to [facility] ER by [facility]. Xrays done with report below. ER discharged [...] INSJ IO LENS PROSTH W/O ECP Bilateral [facility] Family History FAMILY HISTORY Problem [...] gabapentin (NEURONTIN) 300 (more content not included)... [facility] 01-24-20[facility] History of Presen t illness [...] back pain without sciatica, was sent to [facility] ER by [facility]. Xrays done [...] INSJ IO LENS PROSTH W/O ECP Bilateral [facility] Family History FAMILY HISTORY Problem Relation Age [...] Past Histories independently gathered by the clinical network support manager and the remaining scribed note accurately [...] Avis Caruso Ma documented in this encounter [facility] 12-26-2021 Miscellaneous Notes Called and [...] Please advise and return his call at [phone] Called and left a detailed voicemail notifying [...] for his arthritis ? Contact patient at [phone]. Mariah José Pss documented in this encounter [facility] 12-02-2021 History of Presen t illness Narrative Subjective The history is provided by the patient and a relative. No bag patcher was used. HPI Richard Vargas is a [...] have confirmed and edited as necessary, the [facility] Review of Systems Constitutional: Negative [...] and lack of investigative tools available at [facility], recommend patient be seen at nearest ED for further work up ERpassport sent to [place] [facility] to transport, [facility]. Diagnosis and treatment plan were discussed and questions were answered to the patient's satisfaction. Pt acknowledged understanding of concepts and follow up plan. Specific signs and symptoms that would indicate the need for higher level of care were discussed in detail warranting prompt ER evaluation. Felicita Steen APRN.MARU documented in this encounter [facility] 11-16-2021 Miscellaneous Notes Noted; that should be fine Luke Barger MD documented in this encounter [facility] 11-15-2021 History of Presen t [...] INSJ IO LENS PROSTH W/O ECP Bilateral [facility] ALLERGIES Aloe Vera and Diclofenac [...] Carmen Rock APRN.CNP documented in this encounter [facility] 11-15-2021 Instructions Carmen Rock APRN.CNP [...] Carmen Rock APRN.CNP documented in this encounter [facility] 11-15-2021 Miscellaneous Notes The following approved medication requests have been transmitted electronically. Requested Prescriptions Pending Prescriptions Disp Refills rOPINIRole (REQUIP) 2 mg tablet 90 tablet 3 Sig: Take 1 tablet by mouth daily at bedtime. Filomena Allen APRN.CNP Pharmacy verified in [facility] Patient has been identified by name [...] Maria L Ortiz documented in this encounter [facility] 10-17-2021 History and physical note [...] INSJ IO LENS PROSTH W/O ECP Bilateral [facility] CURRENT MEDICATIONS Current Outpatient Medications [...] entered by the nurse and reviewed by ms Nursing Notes: Radha Arenas LPN 09/04/2021 1:22 [...] anesthetic care. This will be done in [place] Diagnoses: (L81.9) Pigmented skin lesion of uncertain [...] TIME: 8:47 AM documented in this encounter [facility] 10-11-2021 Miscellaneous Notes The following [...] Last Labs: 06/28/2021 documented in this encounter [facility] 10-05-2021 Instructions Luzmaria Ruiz APRN.BEEF CATTLE FARM MANAGER - 10/05/2021 9:01 AM EDT PATIENT PREOPERATIVE INSTRUCTIONS Geovanny Baca MD has scheduled you for your procedure at this surgery center: [facility]: [phone] -- [address] [address]. Please read below carefully for your personalized [...] Procedures: - YOU MUST HAVE A RESPONSIBLE TWISTER TENDER TAKE YOU HOME. A HRIS ANALYST OR WALL TO WALL CARPET INSTALLER CANNOT BE MADE A RESPONSIBLE TWISTER TENDER. - We recommend that a responsible person [...] Advance Directive, please fax a copy to [phone] or email to for it to be [...] Luzmaria Ruiz APRN.MARU documented in this encounter [facility] 10-05-2021 History and physical note [...] pain, CHF, congenital heart defect, DVT/PE, recent [place], murmur/valvular heart disease, open heart surgery and [...] INSJ IO LENS PROSTH W/O ECP Bilateral [facility] FAMILY HISTORY Problem Relation Age of Onset [...] or any previous visit (from the past 73349 hour(s)). Assessment Acquired hypothyroidism Assessment: stable on [...] sleepy during the daytime STOP-Bang Score: 7 [id number] Score: Age: >=75 Sex: male CHF history: No Hypertension history: Yes Stroke/TIA/thromboembolism history: No Vascular disease history: No Diabetes history: Yes [id number] Score: 4 ARISCAT Score: Age: 51-80 Preoperative [...] AM PAGER/CONTACT #: documented in this encounter [facility] 09-18-2021 Instructions Sulma Davis - 09/18/2021 9:02 AM EDT The following instructions are important for you related to your office visit today with the [facility] General Surgeons. Instructions After Skin Excison [...] you should contact our office immediately @ [phone] and ask to be transferred to the General Surgery department. documented in this encounter [facility] 09-18-2021 History of Presen t [...] labeled. Sulma Davis documented in this encounter [facility] 09-04-2021 Instructions Geovanny Baca MD [...] If you do not have a responsible cross country truck driver (family member or friend) with [...] preparation [facility] at [facility] local [facility] 01/2019 Bowel Preparation Instructions for: [...] exam. 3 01/2019 documented in this encounter [facility] 09-04-2021 History of Presen t [...] INSJ IO LENS PROSTH W/O ECP Bilateral [facility] [facility] Current Outpatient Medications Medication Sig meloxicam (MOBIC) [...] entered by the nurse and reviewed by ms Nursing Notes: Radha Arenas LPN 09/04/2021 1:22 [...] anesthetic care. This will be done in [place] Diagnoses: (L81.9) Pigmented skin lesion of uncertain [...] Radha Arenas LPN documented in this encounter [facility] 09-04-2021 History of Presen t [...] butt cheek. Would like to go to Street Light Repairer Helper or Surgeon. Past medical history, appointments, [...] INSJ IO LENS PROSTH W/O ECP Bilateral [facility] Family History FAMILY HISTORY Problem Relation Age [...] Past Histories independently gathered by the clinical network support manager and the remaining scribed note accurately [...] Avis Caruso Ma documented in this encounter [facility] 08-28-2021 Miscellaneous Notes See other phone note Luke Barger MD Patient reports he was seen in [facility] on 08/24/21 after a fall. He was [...] seen on 09/04. Requesting [facility] in [place]. Please call patient with advise. Thank you. documented in this encounter [facility] 08-27-2021 Miscellaneous Notes Patient went [...] something for pain. documented in this encounter [facility] 07-12-2021 Instructions Filomena Allen APRN.CNP - 07/12/2021 2:43 PM EDT 1.) Get repeat labs in 1 month. 2.) Complete stool sample to check for blood. 3.) [facility] [place] 4.) Keep scheduled appointment with Pulmonology at [place]. 5.) Continue to work on eating a low carb diet, increase protein and veggies. 6.) Follow up in 3 months or sooner as needed. documented in this encounter [facility] 07-12-2021 History of Presen t [...] INSJ IO LENS PROSTH W/O ECP Bilateral [facility] ALLERGIES: Aloe Vera and Diclofenac [...] not work. Will be seeing pulmonology at [place] in [place] in August. Quit smoking 3 years ago. [...] INSJ IO LENS PROSTH W/O ECP Bilateral [facility] ALLERGIES Aloe Vera and Diclofenac [...] discussed and patient voices understanding. Filomena Allen APRN.BEEF CATTLE FARM MANAGER This note was partially generated using [employer] recognition system. Note was reviewed for accuracy. There may be minor misspellings or grammar miscues with [employer] voice recognition. documented in this encounter [facility] 06-14-2021 History of Presen t illness Narrative [employer] Enrollment Provider Action/FYI: 3 attempts to reach patient in 2020 for enrollment unsuccessful. [employer] introduction message sent recently- not read Fifth attempt to reach patient Patient referred by: [facility] Debbie Contact made with patient: No - 2nd attempt to reach patient, left another message: Hi my name is Kacie Wood RN and I am calling from the [facility] on behalf of your PCP, Luke Barger MD. We are excited to share with you a new program to help you manage your health. Please call me back at [phone] . I hope you can take the time to speak with me. (Keep encounter open for additional two business days in case patient calls back. Close encounter if no response by end of second business day) Closing: Could not reach the patient after two attempted outreaches. Occ Therapy Asst to retry patient in one week. 5 attempts END OUTREACH documented in this encounter [facility] 05-15-2021 Miscellaneous Notes Detailed message left on pt identified VM that he needs to make appt and get blood work done. Aivs Caruso Ma OK to refill as ordered He is due for office visit and labs as ordered Luke Barger MD documented in this encounter [facility] documented as of this encounter (statuses as of 05/15/2021) [facility] History of Past illness Narrative* [...] of this encounter (statuses as of 06/14/2021) [facility] History of Past illness Narrative* [...] of this encounter (statuses as of 07/12/2021) [facility] History of Past illness Narrative* [...] of this encounter (statuses as of 08/27/2021) [facility] History of Past illness Narrative* [...] of this encounter (statuses as of 08/28/2021) [facility] History of Past illness Narrative* [...] of this encounter (statuses as of 09/04/2021) [facility] History of Past illness Narrative* [...] of this encounter (statuses as of 09/04/2021) [facility] History of Past illness Narrative* [...] of this encounter (statuses as of 09/18/2021) [facility] History of Past illness Narrative* [...] of this encounter (statuses as of 10/05/2021) [facility] History of Past illness Narrative* [...] of this encounter (statuses as of 10/11/2021) [facility] History of Past illness Narrative* [...] of this encounter (statuses as of 10/18/2021) [place] [id number] History of Past illness Narrative* Problem Noted [...] of this encounter (statuses as of 11/15/2021) [facility] illness Narrative* [...] of this encounter (statuses as of 11/16/2021) [facility] of Past illness Narrative* [...] of this encounter (statuses as of 11/20/2021) [facility] of Past illness Narrative* [...] of this encounter (statuses as of 12/02/2021) [facility] of Past illness Narrative* [...] of this encounter (statuses as of 12/26/2021) [facility] of [facility] illness Narrative* [...] of this encounter (statuses as of 01/24/2022) [facility] Narrative* [...] of this encounter (statuses as of 04/25/2022) [facility] of Past illness Narrative* [...] of this encounter (statuses as of 04/25/2022) [facility] illness Narrative* [...] of this encounter (statuses as of 04/25/2022) [facility] illness Narrative* [...] of this encounter (statuses as of 05/10/2022) [facility] of [facility] illness Narrative* [...] of this encounter (statuses as of 05/10/2022) [facility] Narrative* [...] of this encounter (statuses as of 05/10/2022) [facility] illness Narrative* [...] of this encounter (statuses as of 10/07/2022) [facility] Narrative* [...] of this encounter (statuses as of 10/15/2022) [facility] illness Narrative* [...] of this encounter (statuses as of 11/28/2022) [facility] of [facility] illness Narrative* [...] of this encounter (statuses as of 12/25/2022) 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* Diagnosis Medicare annual wellness visit, subsequent- [...] (HCC) Paralysis agitans [facility] Diagnosis Acute right-sided low back pain without sciatica- Primary Right hip pain Pain in joint, pelvic region and thigh Seborrheic keratosis Other seborrheic keratosis Difficulty sleeping Sleep disturbance, unspecified Atypical mole Benign neoplasm of skin, site unspecified [facility] Diagnosis Pigmented skin lesion of uncertain nature- Primary Atypical mole Benign neoplasm of skin, site unspecified Encounter for screening for malignant neoplasm of colon Special screening for malignant neoplasms, colon [facility] Diagnosis Skin lesion of back- Primary Unspecified disorder of skin and subcutaneous tissue [facility] Diagnosis Pre-operative examination- Primary Preoperative examination, [...] Thrombocytopenia Thrombocytopenia, unspecified [facility] Diagnosis Acute right-sided low back pain without sciatica Right hip pain Pain in joint, pelvic region and thigh [facility] Diagnosis Encounter for screening for malignant neoplasm of colon- Primary Special screening for malignant neoplasms, colon [facility] Diagnosis RLS (restless legs syndrome)- Primary Restless legs syndrome (RLS) [facility] Diagnosis Essential hypertension Unspecified essential hypertension RLS (restless legs syndrome) Restless legs syndrome (RLS) [facility] Diagnosis Fall, initial encounter- Primary Acute right-sided low back pain without sciatica [facility] Diagnosis Upper back pain- Primary Need for influenza vaccination Need for prophylactic vaccination and inoculation against influenza Wheezing [facility] Diagnosis RLS (restless legs syndrome) Restless legs syndrome (RLS) [facility]* Diagnosis Controlled type 2 diabetes mellitus with complication, without long-term current use of insulin (HCC)- Primary Dry eye syndrome of both eyes Punctate keratitis, bilateral Epiretinal membrane (ERM) of left eye Optic nerve drusen, bilateral Pseudophakia Lens replaced by other means [facility] Diagnosis Hospital discharge follow-up- Primary Other [...] Thrombocytopenia Thrombocytopenia, unspecified [facility] Diagnosis Hypothyroidism, unspecified type- Primary Essential hypertension Unspecified essential hypertension Controlled type 2 diabetes mellitus with complication, without long-term current use of insulin (HCC) Mixed hyperlipidemia Iron deficiency anemia due to chronic blood loss Iron deficiency anemia secondary to blood loss (chronic) [facility] Diagnosis Hypothyroidism, unspecified type- [...] chronic respiratory failure documented in this encounter [facility] for referral (narrative)* Outpatient Procedure (Routine) - Authorized Specialty Diagnoses / Procedures Referred By Contac t Referred To Contact [facility] Diagnoses Encounter for screening for malignant neoplasm of colon Procedures COLONOSCOPY DIAGNOSTIC COLONOSCOPY FLX DX W/COLLJ SPEC WHEN Geovanny Long MD [address] [place] [address] [facility] [place] [address] [address] Referral ID Status Reason Start Date Expiration Date Visits Requested Visits Authorized [id number] Authorized Auto-Generat ed Referral 09/04/2021 09/04/2022 1 1 [facility] for referral (narrative)* Outpatient Procedure (Routine) - Closed Specialty Diagnoses / Procedures Referred By Contac t Referred To Contact [facility] Diagnoses Encounter for screening for malignant neoplasm of colon Procedures COLONOSCOPY DIAGNOSTIC COLONOSCOPY FLX DX W/COLLJ SPEC WHEN Geovanny Long MD [address] [place] [address] [address] Referral ID Status Reason Start Date Expiration Date V isits Requested Visits Authorized [id number] Closed Auto-Generate d Referral 09/04/2021 09/04/2022 1 1 [facility] Outpatient Procedure (Routine) - Closed Specialty Diagnoses / Procedures Referred By [place] white Referred To Contact [facility] Diagnoses Encounter for screening for malignant neoplasm of colon Procedures COLONOSCOPY DIAGNOSTIC COLONOSCOPY FLX DX W/COLLJ SPEC WHEN [facility] Geovanny Baca MD [address] [place] [address] [facility] [place] [address] [place] [address] Referral ID Status Reason Start Date Expiration Date V isits Requested Visits Authorized [id number] Closed Auto-Generate d Referral 09/04/2021 09/04/2022 1 1 [facility] Instructions Name Dates Details Smoker [...] Documents on File Type Date Recorded Patient Senior Research Scientist Expl anation Advance Directive(s) 09/23/2008 9:59 PM Documents on File Type Date Recorded Patient Senior Research Scientist Expl anation Advance Directive(s) 09/23/2008 9:59 PM [...] lesion Procedures CONSULT TO DERMATOLOGY Filomena Allen APRN.BEEF CATTLE FARM MANAGER [address] [place] [address] Referral ID Status Reason Start Date Expiration Date Visits Requested Visits Authorized [id number] Ref Not Required PCP Requested Referral 07/12/2021 07/12/2022 1 1 Specialty Diagnoses / Procedures Referred By Contac t Referred To Contact General Surgery Diagnoses Seborrheic keratosis Atypical mole Procedures CONSULT TO GENERAL SURGERY OFFICE/OUTPATIENT [facility] 60-74 MINUTES Luke Barger MD [address] [place] [address] Referral ID Status Reason Start Date Expiration Date V isits Requested Visits Authorized [id number] Closed PCP Requested Referral 09/04/2021 09/04/2022 1 [...] mole Procedures CONSULT TO GENERAL SURGERY OFFICE/OUTPATIENT [facility] 60-74 MINUTES Luke Barger MD [address] [place] [address] Referral ID Status Reason Start Date Expiration Date V isits Requested Visits Authorized [id number] Closed PCP Requested Referral 09/04/2021 09/04/2022 1 [...] or prosecute any alcohol or drug abuse patient.[facility] the event this information is protected by the Federal Confidentiality of Alcohol and Drug Abuse Patient Records regulations: The Federal rules restrict any use of the information to criminally investigate or prosecute any alcohol or drug abuse patient.[facility] HospitalIn the event this information is protected by the Federal Confidentiality of Alcohol and Drug Abuse Patient Records regulations: The Federal rules restrict any use of the information to criminally investigate or prosecute any alcohol or drug abuse patient.[facility] HospitalIn the event this information is protected by the Federal Confidentiality of Alcohol and Drug Abuse Patient Records regulations: The Federal rules restrict any use of the information to criminally investigate or prosecute any alcohol or drug abuse patient.[facility] HospitalIn the event this information is protected by the Federal Confidentiality of Alcohol and Drug Abuse Patient Records regulations: The Federal rules restrict any use of the information to criminally investigate or prosecute any alcohol or drug abuse patient.[facility] HospitalIn the event this information is protected by the Federal Confidentiality of Alcohol and Drug Abuse Patient Records regulations: The Federal rules restrict any use of the information to criminally investigate or prosecute any alcohol or drug abuse patient.[facility] HospitalIn the event this information is protected by the Federal Confidentiality of Alcohol and Drug Abuse Patient Records regulations: The Federal rules restrict any use of the information to criminally investigate or prosecute any alcohol or drug abuse patient.[facility] HospitalIn the event this information is protected by the Federal Confidentiality of Alcohol and Drug Abuse Patient Records regulations: The Federal rules restrict any use of the information to criminally investigate or prosecute any alcohol or drug abuse patient.[facility] HospitalIn the event this information is protected by the Federal Confidentiality of Alcohol and Drug Abuse Patient Records regulations: The Federal rules restrict any use of the information to criminally investigate or prosecute any alcohol or drug abuse patient.[facility] HospitalIn the event this information is protected by the Federal Confidentiality of Alcohol and Drug Abuse Patient Records regulations: The Federal rules restrict any use of the information to criminally investigate or prosecute any alcohol or drug abuse patient.[facility] HospitalIn the event this information is protected by the Federal Confidentiality of Alcohol and Drug Abuse Patient Records regulations: The Federal rules restrict any use of the information to criminally investigate or prosecute any alcohol or drug abuse patient.[facility] HospitalIn the event this information is protected by the Federal Confidentiality of Alcohol and Drug Abuse Patient Records regulations: The Federal rules restrict any use of the information to criminally investigate or prosecute any alcohol or drug abuse patient.[facility] HospitalIn the event this information is protected by the Federal Confidentiality of Alcohol and Drug Abuse Patient Records regulations: The Federal rules restrict any use of the information to criminally investigate or prosecute any alcohol or drug abuse patient.[facility] HospitalIn the event this information is protected by the Federal Confidentiality of Alcohol and Drug Abuse Patient Records regulations: The Federal rules restrict any use of the information to criminally investigate or prosecute any alcohol or drug abuse patient.[facility] HospitalIn the event this information is protected by the Federal Confidentiality of Alcohol and Drug Abuse Patient Records regulations: The Federal rules restrict any use of the information to criminally investigate or prosecute any alcohol or drug abuse patient.[facility] HospitalIn the event this information is protected by the Federal Confidentiality of Alcohol and Drug Abuse Patient Records regulations: The Federal rules restrict any use of the information to criminally investigate or prosecute any alcohol or drug abuse patient.[facility] HospitalIn the event this information is protected by the Federal Confidentiality of Alcohol and Drug Abuse Patient Records regulations: The Federal rules restrict any use of the information to criminally investigate or prosecute any alcohol or drug abuse patient.[facility] HospitalIn the event this information is protected by the Federal Confidentiality of Alcohol and Drug Abuse Patient Records regulations: The Federal rules restrict any use of the information to criminally investigate or prosecute any alcohol or drug abuse patient.[facility] HospitalIn the event this information is protected by the Federal Confidentiality of Alcohol and Drug Abuse Patient Records regulations: The Federal rules restrict any use of the information to criminally investigate or prosecute any alcohol or drug abuse patient.[facility] the event this information is protected by the Federal Confidentiality of Alcohol and Drug Abuse Patient Records regulations: The Federal rules restrict any use of the information to criminally investigate or prosecute any alcohol or drug abuse patient.[facility] HospitalIn the event this information is protected by the Federal Confidentiality of Alcohol and Drug Abuse Patient Records regulations: The Federal rules restrict any use of the information to criminally investigate or prosecute any alcohol or drug abuse patient.[facility] HospitalIn the event this information is protected by the Federal Confidentiality of Alcohol and Drug Abuse Patient Records regulations: The Federal rules restrict any use of the information to criminally investigate or prosecute any alcohol or drug abuse patient.[facility] HospitalIn the event this information is protected by the Federal Confidentiality of Alcohol and Drug Abuse Patient Records regulations: The Federal rules restrict any use of the information to criminally investigate or prosecute any alcohol or drug abuse patient.[facility] HospitalIn the event this information is protected by the Federal Confidentiality of Alcohol and Drug Abuse Patient Records regulations: The Federal rules restrict any use of the information to criminally investigate or prosecute any alcohol or drug abuse patient.[facility] HospitalIn the event this information is protected by the Federal Confidentiality of Alcohol and Drug Abuse Patient Records regulations: The Federal rules restrict any use of the information to criminally investigate or prosecute any alcohol or drug abuse patient.[facility] HospitalIn the event this information is protected by the Federal Confidentiality of Alcohol and Drug Abuse Patient Records regulations: The Federal rules restrict any use of the information to criminally investigate or prosecute any alcohol or drug abuse patient.[facility] HospitalIn the event this information is protected by the Federal Confidentiality of Alcohol and Drug Abuse Patient Records regulations: The Federal rules restrict any use of the information to criminally investigate or prosecute any alcohol or drug abuse patient.[facility] Care Teams (unrecognized sec tion and content) Fisher Lampara Net Relationship Specialty Start Date End Date Luke Barger MD [address] [place] [address] PCP - General Family Practice 05/22/18 Fisher Lampara Net Relationship Specialty Start Date End Date Luke Barger MD [facility] [place] [address] PCP - General Family Practice 05/22/18 Fisher Lampara Net Relationship Specialty Start Date End Date Luke Barger MD [address] [place] [address] PCP - General Family Practice 05/22/18 Fisher Lampara Net Relationship Specialty Start Date End Date Luke Barger MD [facility] [place] [address] PCP - General Family Practice 05/22/18 Fisher Lampara Net Relationship Specialty Start Date End Date Luke Barger MD [address] [place] [address] PCP - General Family Practice 05/22/18 Fisher Lampara Net Relationship Specialty Start Date End Date Luke Barger MD [address] [place] [address] [place] [address] PCP - General Family Practice 05/22/18 Fisher Lampara Net Relationship Specialty Start Date End Date Luke Barger MD [address] [place] [address] PCP - General Family Practice 05/22/18 Fisher Lampara Net Relationship Specialty Start Date End Date Luke Barger MD [address] [place] [address] PCP - General Family Practice 05/22/18 Fisher Lampara Net Relationship Specialty Start Date End Date Luke Barger MD [address] [place] [address] PCP - General Family Practice 05/22/18 Fisher Lampara Net Relationship Specialty Start Date End Date Luke Barger MD [address] [place] [address] PCP - General Family Medicine 05/22/18 Fisher Lampara Net Relationship Specialty Start Date End Date Luke Barger MD [address] [place] [address] PCP - General Family Medicine 05/22/18 Fisher Lampara Net Relationship Specialty Start Date End Date Luke Barger MD [address] [place] [address] PCP - General Family Medicine 05/22/18 Fisher Lampara Net Relationship Specialty Start Date End Date Luke Barger MD [address] [place] [address] PCP - General Family Medicine 05/22/18 Fisher Lampara Net Relationship Specialty Start Date End Date Luke Barger MD [address] [place] [address] PCP - General Family Medicine 05/22/18 Fisher Lampara Net Relationship Specialty Start Date End Date Luke Barger MD [address] [place] [address] PCP - General Family Medicine 05/22/18 Fisher Lampara Net Relationship Specialty Start Date End Date Luke Barger MD [address] [place] [address] PCP - General Family Medicine 05/22/18 Fisher Lampara Net Relationship Specialty Start Date End Date Luke Barger MD [address] [place] [address] PCP - General Family Medicine 05/22/18 Fisher Lampara Net Relationship Specialty Start Date End Date Luke Barger MD [address] [place] [address] PCP - General Family Medicine 05/22/18 Fisher Lampara Net Relationship Specialty Start Date End Date Luke Barger MD [address] [place] [address] PCP - General Family Medicine 05/22/18 Fisher Lampara Net Relationship Specialty Start Date End Date Luke Barger MD [address] [place] [address] PCP - General Family Medicine 05/22/18 Fisher Lampara Net Relationship Specialty Start Date End Date Luke Barger MD [address] [place] [address] PCP - General Family Medicine 05/22/18 (unrecognized sect ion and content) No Status Records FoundNo Status Records Found INFORMATION SOURCE (unrecogn ized section and content) DATE CREATED AUTHOR AUTHOR'S ORGANIZ ATION 12/26/2022 [facility] FOR RECORDS PERTAINING TO PATIENTS WHO [...] BE BASED ON THE PRIMARY CLINICAL RECORDS. [facility] [employer] [facility]. provides no warranty or guarantee of the accuracy or completeness of information in this document.
[2023-03-31] MEDS: Lidocaine 2% (20 ml mdv) 20 ML Vial INFILT (10:47)
[2023-03-31 11:28] VITALS: BP 126/51; PULSE 90; RESP 18; TEMP 36.4; O2SAT 94
[2023-03-31 11:29] VITALS: BP 114/69; PULSE 79; RESP 18; O2SAT 96
--- NOTE | 2023-03-31 11:29 | PRO.PCM_ITS ---
Procedure Report Date of Procedure: 03/31/23 Assessment & Plan Assessment/Plan (1) Ascites: QUALIFIERS: Ascites type: other type Qualified Code(s): R18.8 - Other ascites PLAN: PROCEDURE: Ultrasound guided paracentesis ORDERING PROVIDER: Dr. Bright INDICATION: Male, 77 years old. Ascites. PROVIDER: IVANA Hidalgo TECHNIQUE: The risks, benefits, and alternatives to the procedure were explained to the patient. The specific risks of bleeding, infection, and damage to bowel were detailed and accepted. Witnessed informed consent was obtained. The abdomen was ultrasonographically surveyed. An appropriate pocket of fluid was identified in the right lower quadrant. The skin was prepped with chlorhexidine and sterile field established. 2% lidocaine was used for local anesthetic. Using ultrasound guidance, the peritoneal cavity was accessed with a 5-British paracentesis needle/catheter system. The trocar was removed. A total of 6100 ml of clear yellow colored fluid was removed from the peritoneal cavity. The catheter was removed and a sterile dressing was applied. The procedure was well tolerated. IMPRESSION: Successful ultrasound-guided paracentesis with right lower quadrant access site. Procedures Radiology Radiology US Procedures: [id number] Paracentesis
[2023-03-31 11:30] VITALS: BP 130/56; PULSE 77; RESP 18; O2SAT 97
[2023-03-31] MEDS: 0.9% Saline Lock 10 ML Syringe IV (11:30)
[2023-03-31] MEDS: Albumin Human 25% (100 mL) 25 GM/100 ML BAG IV (11:58)
[2023-03-31] MEDS: Albumin Human 25% (50 mL) 12.5 GM/50 ML IV.SOLN IV (13:22)
[2023-03-31 14:25] VITALS: BP 124/68; PULSE 82; RESP 16; TEMP 36.2; O2SAT 98
--- NOTE | 2023-03-31 16:30 | CASEMGMT ---
Social Work SHAWN met with patient in outpatient infusion suite. Introduced self and role. Discussed needs pt identified. Educated and provided resources for home delivered meals, along with exercise programs, support groups for Parkinson's Disease. SHAWN explained to pt this worker spoke with Jigar ESCOBAR, [place] social media community manager about [place]'s available benefits. [place] SHAWN stated [place] was provided a medical alert button in 2018; [place] home [place] meals, but can ask the company for a [place] discount; pt could be eligible for SATURATOR OPERATOR; recommended calling APS to connect pt with [facility]'s [employer] to assist with better home environment. Pt is interested in home delivered meals and Parkinson's classes, but is very financial conscious. Pt is agreeable to SATURATOR OPERATOR if at no cost to him. SW encouraged to contact both programs to determine cost. Pt expressed understanding. SW explored pt's finances for possible Medicaid eligibility. After discussion, pt may not be legible, but offered to assist in completing application for community programs/assistance with food, etc. Pt agreeable. SHAWN inquired about dtr's involvement and advanced directives status. Pt stated dtr keeps to herself because she works radiology nurse. SW noted Director had tried several times to contact dtr, but no answer or response. Pt did not reply. SW offered to complete advanced directives during next visit. Pt agreed so he had them accessible . SHAWN concluded conversation with pt encouraging pt to contact Parkinson's programs, home delivered meals, and this worker will contact agency ([employer]) to assist with home environment and Medicaid application, and notify [place] SHAWN of pt's interest in SATURATOR OPERATOR. SW to obtain next appt to revisit pt and complete advanced directives. Pt expressed understanding and denied any further questions at this time. SHAWN left detailed VM with Beny at [facility] APS of above. SW spoke with Jigar ESCOBAR to request SATURATOR OPERATOR. Since pt is OP, [place] SHAWN to contact pt and PCP for needed information within the next week. Pt's next appt is 04/10 at 1030. SW to follow. SHRADDHA LeyvaW
== END | disposition home or self-care (01) ==
LOC: US 10:11
PROVIDERS: PCP Family Medicine Geriatric Medicine; Visit Provider Family Medicine Geriatric Medicine
DX: K74.60 Unspecified cirrhosis of liver (principal)
CPT/HCPCS: 96365; 96366 ×2; 49083; J7050; P9047; A4216

== ENCOUNTER → 2023-04-08 | Outpatient (CLI) | payer MEDICARE, OTHER, SELFPAY ==
[2023-04-08 17:21] LABS: Absolute Lymphocyte Count 1.23 X10^3/uL (0.83-4.51); Absolute Neutrophil Count 2.7 X10^3/uL (2.0-7.7); Basophil# 0.02 X10^3/uL; Basophil% 0.4 % (0-1); Eosinophil# 0.33 X10^3/uL; Eosinophils% 6.8 % (0-5); Hematocrit 32.3 % (40-54); Hemoglobin 9.8 g/dL (13.0-16.5); Lymphocyte # 1.23 X10^3/ul (0.83-4.51); Lymphocyte % 25.4 % (19-41); Mean Corp Hgb Conc 30.3 g/dL (32-36); Mean Corpuscular Hgb 32.2 pg (27.0-32.0); Mean Corpuscular Volume 106.3 fL (80-94); Mean Platelet Vol. 9.7 fl (6.2-12.0); Monocyte# 0.56 X10^3/uL; Monocyte% 11.6 % (0-10); NRBC Flagged by Analyzer 0 % (0-5); Neutrophil # 2.68 X10^3/uL (2.7-7.7); Neutrophil % 55.4 % (47-70); Platelet Count 103 K/mm3 (150-450); RBC Distribution Width CV 14.8 % (11.6-14.6); RBC Distribution Width SD 57.8 fl (35.1-43.9); Red Blood Count 3.04 M/mm3 (4.6-6.2); White Blood Count 4.8 K/mm3 (4.4-11.0)
[2023-04-08 17:38] LABS: Iron 82 ug/dL (65-175); Iron Binding Capacity,Total 232 ug/dL (250-450); PERCENT IRON SATURATION 35.3 % (15.0-55.0)
--- OUTSIDE RECORDS SUMMARY | 2023-04-08 20:46 | XMS RPT_ITS | CCD ---
Author Name Unknown Address [address] [place] [address] Organization [facility] Care Team Providers Care Histologic Aide Name Role Phone SaranyaRadha blanco E Unavailable Ming Garrido Unavailable Physical [facility], [facility] Unavailable Bebeto Marrufo Unavailable [phone] Ryan Shine Unavailable Matheus Mills Unavailable Darrian Martin Unavailable [phone] Mansi Sanabria Unavailable Darrian Martin Unavailable [phone] Eboni Cisse Unavailable Martinez Srinivasan Unavailable Deana Moreland Unavailable Unavailable Kerri Ferreira Unavailable Unavailable Anastasiia Norwood Unavailable Unavailable Unavailable Unavailable Greyson Vazquez MD Unavailable Luke Barger MD Primary Care Provider Luke Bargre MD Primary Care Provider Luke Barger MD [...] Translations: [ALOE VERA] Drug Allergy 02-24-2014 Rash [facility] (20 sources) Diclofenac; Translations: [DICLOFENAC] Drug Allergy 02-28-2011 Intolerance [facility] Medications Current Medications Medication Drug Class(es) Dates Sig (Normalized) Sig (Original) [id number] 200 actuat albuterol 0.09 mg/actuat metered dose [...] 88.91 kg Luke Barger MD Work Phone: [facility] 10-14-2022 18:04-0400 Diastolic blood pressure 80 mm[Hg] Luke Barger MD Work Phone: [facility] 10-14-2022 18:04-0400 Heart rate 72 /min Luke Barger MD Work Phone: [facility] 10-14-2022 18:04-0400 Respiratory rate 18 /min Luke Barger MD Work Phone: [facility] 10-14-2022 18:04-0400 Systolic blood pressure 130 mm[Hg] Luke Barger MD Work Phone: [facility] 05-09-2022 10:11-0400 Body weight 85.19 kg Luke Barger MD Work Phone: [facility] 05-09-2022 10:11-0400 Diastolic blood pressure 64 mm[Hg] Luke Barger MD Work Phone: [facility] 05-09-2022 10:11-0400 Heart rate 76 /min Luke Barger MD Work Phone: [facility] 05-09-2022 10:11-0400 Respiratory rate 20 /min Luke Barger MD Work Phone: [facility] 05-09-2022 10:11-0400 SaO2% (BldA) [Mass fraction] 99 % Luke Barger MD Work Phone: [facility] 05-09-2022 10:11-0400 Systolic blood pressure 130 mm[Hg] Luke Barger MD Work Phone: [facility] 01-24-2022 08:07-0500 Body temperature 98.2 [degF] Luke Barger MD Work Phone: [facility] 01-24-2022 08:07-0500 Body weight 105.69 kg Luke Barger MD Work Phone: [facility] 01-24-2022 08:07-0500 Diastolic blood pressure 90 mm[Hg] Luke Barger MD Work Phone: [facility] 01-24-2022 08:07-0500 Heart rate 78 /min Luke Barger MD Work Phone: [facility] 01-24-2022 08:07-0500 Respiratory rate 20 /min Luke Barger MD Work Phone: [facility] 01-24-2022 08:07-0500 SaO2% (BldA) [Mass fraction] 94 % Luke Barger MD Work Phone: [facility] 01-24-2022 08:07-0500 Systolic blood pressure 150 mm[Hg] Luke Barger MD Work Phone: [facility] 12-02-2021 12:17-0400 Body temperature 97.59 [degF] Felicita Celsa TUBING MACHINE OPERATOR.TRANSPORTATION JOB TITLES Work Phone: [facility] 12-02-2021 12:17-0400 Body weight 99.79 kg Felicita Celsa TUBING MACHINE OPERATOR.TRANSPORTATION JOB TITLES Work Phone: [facility] 12-02-2021 12:17-0400 Diastolic blood pressure 76 mm[Hg] Felicita Celsa TUBING MACHINE OPERATOR.TRANSPORTATION JOB TITLES Work Phone: [facility] 12-02-2021 12:17-0400 Heart rate 94 /min Felicita Celsa TUBING MACHINE OPERATOR.TRANSPORTATION JOB TITLES Work Phone: [facility] 12-02-2021 12:17-0400 Respiratory rate 21 /min Felicita Celsa TUBING MACHINE OPERATOR.TRANSPORTATION JOB TITLES Work Phone: [facility] 12-02-2021 12:17-0400 SaO2% (BldA) [Mass fraction] 95 % Felicita Celsa TUBING MACHINE OPERATOR.TRANSPORTATION JOB TITLES Work Phone: [facility] 12-02-2021 12:17-0400 Systolic blood pressure 182 mm[Hg] Felicita Celsa TUBING MACHINE OPERATOR.TRANSPORTATION JOB TITLES Work Phone: [facility] 11-15-2021 18:44-0400 Body temperature 97.2 [degF] Carmen Praisler-Wood TUBING MACHINE OPERATOR.TRANSPORTATION JOB TITLES Work Phone: [facility] 11-15-2021 18:44-0400 Body weight 96.07 kg Carmen Praisler-Wood TUBING MACHINE OPERATOR.TRANSPORTATION JOB TITLES Work Phone: [facility] 11-15-2021 18:44-0400 Diastolic blood pressure 78 mm[Hg] Carmen Praisler-Wood TUBING MACHINE OPERATOR.TRANSPORTATION JOB TITLES Work Phone: [facility] 11-15-2021 18:44-0400 Heart rate 79 /min Carmen Praisler-Wood TUBING MACHINE OPERATOR.TRANSPORTATION JOB TITLES Work Phone: [facility] 11-15-2021 18:44-0400 Respiratory rate 18 /min Carmen Praisler-Wood TUBING MACHINE OPERATOR.TRANSPORTATION JOB TITLES Work Phone: [facility] 11-15-2021 18:44-0400 SaO2% (BldA) [Mass fraction] 97 % Carmen Praisler-Wood TUBING MACHINE OPERATOR.TRANSPORTATION JOB TITLES Work Phone: [facility] 11-15-2021 18:44-0400 Systolic blood pressure 156 mm[Hg] Carmen Praisler-Wood TUBING MACHINE OPERATOR.TRANSPORTATION JOB TITLES Work Phone: [facility] 10-17-2021 09:59-0400 Diastolic blood pressure 71 mm[Hg] Geovanny Baca MD Work Phone: [facility] 10-17-2021 09:59-0400 Heart rate 65 /min Geovanny Baca MD Work Phone: [facility] 10-17-2021 09:59-0400 Respiratory rate 28 /min Geovanny Baca MD Work Phone: [facility] 10-17-2021 09:59-0400 SaO2% (BldA) [Mass fraction] 99 % Geovanny Baca MD Work Phone: [facility] 10-17-2021 09:59-0400 Systolic blood pressure 166 mm[Hg] Geovanny Baca MD Work Phone: [facility] 10-17-2021 09:45-0400 Body temperature 98.6 [degF] Geovanny Baca MD Work Phone: [facility] 10-05-2021 08:45-0400 Body height 166.4 cm Pacc 1 Work Phone: [facility] 10-05-2021 08:45-0400 Body temperature 97 [degF] Pacc 1 Work Phone: [facility] 10-05-2021 08:45-0400 Body weight 97.52 kg Pacc 1 Work Phone: [facility] 10-05-2021 08:45-0400 Diastolic blood pressure 68 mm[Hg] Pacc 1 Work Phone: [facility] 10-05-2021 08:45-0400 Heart rate 67 /min Pacc 1 Work Phone: [facility] 10-05-2021 08:45-0400 Respiratory rate 16 /min Pacc 1 Work Phone: [facility] 10-05-2021 08:45-0400 SaO2% (BldA) [Mass fraction] 93 % Pacc 1 Work Phone: [facility] 10-05-2021 08:45-0400 Systolic blood pressure 134 mm[Hg] Pacc 1 Work Phone: [facility] 09-04-2021 13:16-0400 Body height 167.6 cm Geovanny Baca MD Work Phone: [facility] 07-19-2022 13:16-0400 Body temperature 97 [degF] Geovanny Baca MD Work Phone: [facility] 09-04-2021 13:16-0400 Body weight 96.62 kg Geovanny Baca MD Work Phone: [facility] 09-04-2021 13:16-0400 Diastolic blood pressure 62 mm[Hg] Geovanny Baca MD Work Phone: [facility] 09-04-2021 13:16-0400 Heart rate 99 /min Geovanny Baca MD Work Phone: [facility] 09-04-2021 13:16-0400 SaO2% (BldA) [Mass fraction] 93 % Geovanny Baca MD Work Phone: [facility] 09-04-2021 13:16-0400 Systolic blood pressure 156 mm[Hg] Geovanny Baca MD Work Phone: [facility] 09-04-2021 08:43-0400 Body weight 97.52 kg Luke Barger MD Work Phone: [facility] 09-04-2021 08:43-0400 Diastolic blood pressure 74 mm[Hg] Luke Barger MD Work Phone: [facility] 09-04-2021 08:43-0400 Heart rate 62 /min Luke Barger MD Work Phone: [facility] 09-04-2021 08:43-0400 Respiratory rate 16 /min Luke Barger MD Work Phone: [facility] 09-04-2021 08:43-0400 Systolic blood pressure 138 mm[Hg] Luke Barger MD Work Phone: [facility] 07-12-2021 14:22-0400 Body height 169 cm Filomena Allen TUBING MACHINE OPERATOR.TRANSPORTATION JOB TITLES Work Phone: [facility] 07-12-2021 14:22-0400 Body weight 102.06 kg Filomena Allen TUBING MACHINE OPERATOR.TRANSPORTATION JOB TITLES Work Phone: [facility] 07-12-2021 14:22-0400 Diastolic blood pressure 70 mm[Hg] Filomena Allen TUBING MACHINE OPERATOR.TRANSPORTATION JOB TITLES Work Phone: [facility] 07-12-2021 14:22-0400 Heart rate 65 /min Filomenajuventino Allen TUBING MACHINE OPERATOR.TRANSPORTATION JOB TITLES Work Phone: [facility] 07-12-2021 14:22-0400 Respiratory rate 16 /min Filomenajuventino Allen TUBING MACHINE OPERATOR.TRANSPORTATION JOB TITLES Work Phone: [facility] 07-12-2021 14:22-0400 SaO2% (BldA) [Mass fraction] 95 % Filomena Tiffany TUBING MACHINE OPERATOR.TRANSPORTATION JOB TITLES Work Phone: [facility] 07-12-2021 14:22-0400 Systolic blood pressure 160 mm[Hg] Filomenajuventino Allen TUBING MACHINE OPERATOR.TRANSPORTATION JOB TITLES Work Phone: [facility] 01-13-2018 13:06-0500 BMI (Body Mass [...] cleared fda spec home use Richard Agee TUBING MACHINE OPERATOR.MAJOR GIFTS MANAGER Work Phone: Start: 10-17-2021 Colonoscopy Carmen Rock TUBING MACHINE OPERATOR.TRANSPORTATION JOB TITLES Work Phone: Start: 07-12-2021 Adult depression screening assessment Filomena Allen TUBING MACHINE OPERATOR.TRANSPORTATION JOB TITLES Work Phone: Start: 07-21-2019 End: 07-21-2019 Blood [...] 05-22-2018 Adult depression screening assessment Adolfo Ryder TUBING MACHINE OPERATOR.TRANSPORTATION JOB TITLES Work Phone: Start: 01-09-2018 End: 01-09-2018 Emergency Department Summary Comments: See Note; NOTES: [facility] Medical Records Department [address] [place] [address] Emergency Department Summary 01/09/18 0645 MR#: [id number] Acct: [id number] Name: RICHARD VARGAS Rep #: [id number] : 1945 72 From: Ermelinda Deng MD [...] Parkinson's disease This note was generated with Recommendo dictation software. It may contain incorrect words, spelling, and punctuation that were not noted in review of the chart prior to signing ED Disposition - Plan for ED Patient: Chief Complaint: Syncope Referrals: Radha Torres, [facility] DIRECTOR-C [Primary Care Provider] - What to do if you have Problems For any increased pain, shortness of breath, bleeding, nausea or vomiting, chest pain, or any unexpected problems, contact your Primary Care Provider. Call [facility] ([phone]) or report to the closest Emergency Room. Call 911 if necessary. 01/09/18 0753 <Electronically signed by Ermelinda Deng MD> Date Ermelinda Deng MD Cosigner Signature (If Indicated): Date CC: Radha Torres Start: 01-09-2018 End: 01-09-2018 Brain/Head without Contrast Comments: See Note; NOTES: [facility] Imaging Services [address] [place] [address] Brain/Head without Contrast MR#: [id number] Acct: [id number] Name: RICHARD VARGAS Rep #: [id number] : 1945 M 72 From: James Faustin MD PCP: Radha Torres NP Status: REG ER Study: Brain/Head without Contrast Date of Exam: 01/09/18 Exam# [id number] Ordering Dr: Ermelinda Deng MD STUDY: CT [...] CC: Radha Torres NP; Ermelinda Deng MD Strap Sewer: Signed Radha Torres Start: 01-09-2018 End: 01-09-2018 Chest 1 View Comments: See Note; NOTES: [facility] Imaging Services [address] [place] [address] Chest 1 View MR#: [id number] Acct: [id number] Name: RICHARD VARGAS Rep #: [id number] : 1945 M 72 From: James Faustin MD PCP: Radha Torres NP Status: REG ER Study: Chest 1 View Date of Exam: 01/09/18 Exam# [id number] Ordering Dr: Ermelinda Deng MD STUDY: X-RAY [...] CC: Radha Torres NP; Ermelinda Deng MD Strap Sewer: Signed Radha Torres Start: 02-26-2017 End: 02-26-2017 Chest WITH Contrast Comments: See Note; NOTES: [facility] Imaging Services [address] [place] [address] Chest WITH Contrast MR#: [id number] Acct: [id number] Name: RICHARD VARGAS Rep #: [id number] : 1945 M 71 From: Amadeo Dc MD PCP: Cindy Maria DO Status: REG CLI Study: Chest WITH Contrast Date of Exam: 02/26/17 Exam# [id number] Ordering Dr: Cindy Maria DO STUDY: CT [...] spleen. Although not fully included in the [id number], spleen appears upper limits of normal size. [...] Service support , CC: Cindy Maria DO Strap Sewer: Signed Cindy Maria Work Phone: Start: 02-27-2016 End: 02-27-2016 Emergency Department Summary Comments: See Note; NOTES: [facility] Medical Records Department [address] [place] [address] Emergency Department Summary MR#: [id number] Acct: [id number] Name: RICHARD VARGAS Rep #: [id number] : 1945 70 From: Richard Miranda MD PCP: Piyush Sanabria Status: [facility] ER DATE OF SERVICE: 02/27/2016 CHIEF [...] Discharge. Richard Miranda MD T: NTS JOB: [id number] 02/27/16 033 <Electronically signed by Richard Miranda MD> Date Richard Miranda MD Cosigner Signature (If Indicated): Date CC: Piyush Sanabria Date Dictated: 02/27/16150 Date Transcribed: 02/27/16150 Strap Sewer: Corey Torres Start: 02-27-2016 End: 02-27-2016 Discharge Instruction Comments: See Note; NOTES: [facility] Medical Records Department [address] [place] [address] Discharge Instruction 02/27/16 0149 MR#: [id number] Acct: [id number] Name: SOHANRICHARD Rep #: [id number] : 1945 70 From: Richard Miranda MD [...] your Primary Care Provider. Call [facility] ([phone]) or report to the closest Emergency Room. Call 911 if necessary. 02/27/16 0154 <Electronically signed by Richard Miranda MD> Date Richard Ruth MD Cosigner Signature (If Indicated): Date CC: Piyush Torres Start: 11-30-2015 Biopsy of bone marrow Radha Torres Plan of Treatment Date Care Activity Detail Author Start: 07-19-2029 Urine microalbumin profile [facility] Start: 10-17-2026 Colonoscopy COLONOSCOPY [facility] Start: 10-17-2026 COLORECTAL CANCER SCREENING COLORECTAL CANCER SCREENING [facility] Start: 10-15-2023 ANNUAL PCP TEAM CHRONIC DISEASE VISIT ANNUAL PCP TEAM CHRONIC DISEASE VISIT [facility] Start: 05-14-2023 Hemoglobin A1c/Hemoglobin.total in Blood HbA1C [facility] Start: 05-10-2023 ANNUAL PCP TEAM CHRONIC DISEASE VISIT ANNUAL PCP TEAM CHRONIC DISEASE VISIT [facility] Start: 04-26-2023 Hepatitis C antibody, confirmatory test DILATED RETINAL EXAM [facility] Start: 01-24-2023 ANNUAL PCP TEAM CHRONIC DISEASE VISIT ANNUAL PCP TEAM CHRONIC DISEASE VISIT [facility] Start: 11-09-2022 Hemoglobin A1c/Hemoglobin.total in Blood HBA1C [facility] Start: 10-18-2022 Influenza vaccination [facility] Start: 10-14-2022 End: 12-14-2022 CBC panel - Blood by Automated count CBC Lab Routine Essential hypertension Expected: 10/14/2022 (Approximate), Expires: 12/14/2022 [facility] Work Phone: Immunizations Immunization Date Immunization Notes Care Provider Georgina keller 01-24-2022 influenza, high-dose , quadrivalent vaccine (FLUZONE HIGH DOSE QUADRIVALENT) Luke Barger MD Work Phone: [facility] 01-24-2022 influenza virus vaccine, unspecified formulation Filomena Allne TUBING MACHINE OPERATOR.TRANSPORTATION JOB TITLES Work Phone: [facility] 11-19-2019 influenza, high-dose , quadrivalent vaccine (FLUZONE HIGH DOSE QUADRIVALENT) Adolfo Ryder APRN.TRANSPORTATION JOB TITLES Work Phone: [facility] 07-20-2019 tetanus toxoid, reduced diphtheria toxoid, and acellular pertussis vaccine, adsorbed Adolfo Caldwellil TUBING MACHINE OPERATOR.TRANSPORTATION JOB TITLES Work Phone: [facility] Work Phone: 11-06-2018 influenza, high dose seasonal, preservative-free Adolfo Rosalio TUBING MACHINE OPERATOR.TRANSPORTATION JOB TITLES Work Phone: [facility] 02-18-2016 tetanus and diphther ia toxoids, adsorbed, preservative free, for adult use (2 Lf of tetanus toxoid and 2 Lf of diphtheria toxoid) [facility] Work Phone: 04-13-2015 pneumococcal conjuga te vaccine, 13 valent Adolfo Rosalio TUBING MACHINE OPERATOR.TRANSPORTATION JOB TITLES Work Phone: [facility] Work Phone: 12-20-2014 influenza, high dose seasonal, preservative-free Adolfo Rosalio TUBING MACHINE OPERATOR.TRANSPORTATION JOB TITLES Work Phone: [facility] 02-17-2014 influenza, seasonal, injectable [facility] Work Phone: 11-01-2013 influenza, seasonal, injectable Adolfo Rosalio TUBING MACHINE OPERATOR.TRANSPORTATION JOB TITLES Work Phone: [facility] 11-01-2013 zoster vaccine, live Adolfo C ecil TUBING MACHINE OPERATOR.TRANSPORTATION JOB TITLES Work Phone: [facility] 11-04-2012 influenza virus vaccine, unspecified formulation Adolfo Rosalio TUBING MACHINE OPERATOR.TRANSPORTATION JOB TITLES Work Phone: [facility] 02-15-2009 pneumococcal polysaccharide vaccine, 23 valent Adolfo Rosalio TUBING MACHINE OPERATOR.TRANSPORTATION JOB TITLES Work Phone: [facility] 12-16-2008 influenza virus vaccine, unspecified formulation Adolfo Rosalio TUBING MACHINE OPERATOR.TRANSPORTATION JOB TITLES Work Phone: [facility] Work Phone: 12-23-2007 influenza virus vaccine, unspecified formulation Adolfo Rosalio TUBING MACHINE OPERATOR.TRANSPORTATION JOB TITLES Work Phone: [facility] Work Phone: 11-21-2005 tetanus toxoid, reduced diphtheria toxoid, and acellular pertussis vaccine, adsorbed Adolfo Rosalio TUBING MACHINE OPERATOR.TRANSPORTATION JOB TITLES Work Phone: [facility] Work Phone: Payers Date Payer Category Payer Medicare MEDICARE MEDICAR E A AND B [id number] 2008-Present [phone] [place] [address] Medicare [id number] 2008 Medicare MEDICARE MEDICAR E A AND B [id number] 2008-Present [phone] [place] [address] Medicare [id number] 2008 Medicare [id number] 2005 Private Health Insurance [employer] W[employer] PPO [id number] 2005-Present [phone] [address] [place] [address] PPO [id number] 2005 Private Health Insurance CIGDALILA LERNERA PPO [id number] 2005-Present [phone] [address] [place] [address] PPO [id number] 2005 Private Health Insurance [id number] Unknown Social History Date Type Detail Facility Start: 05-09-2022 End: 10-10-2022 Alcohol Use Former smoker [facility] Work Phone: Clinical Notes 06-03-2013 [...] Lucretia Arriaza Ma documented in this encounter [facility] 11-27-2022 Miscellaneous Notes TC to Pt on moving appt to an earlier time on 12/09/22. Pt declined due to transportation problems. Pt also stated being in [facility] ER and had fluid drained from abdomin. Offered to move appt up to this week or next. Pt declined, stating He will keep the appt that is scheduled. Luz Sykes LPN documented in this encounter [facility] 10-14-2022 Note HNO ID: [id number] Author: Luke Barger MD Service: ? Author [...] been taking. Pt here today for a [facility] ED follow up. Pt was started on Lasix 40 mg daily on 10/07/22 due to having issues with urine retention. He still has swelling in his feet and ankles. It does not improve over night. He states he was having some pain in the legs, took some Tylenol which helped. He was in [place] from Feb to Fe after having heart attack. His daughter lives with him. Depression: pt was on lexapro but stated it was stopped while he was in the alf. He would like to go back on it. He is feeling depressed. Denies SI/HI. He says he has an appt in 2 days with someone at [facility] for his ascites. Pt presented to [facility] ED on 10/04/22 with shortness of breath. [facility] ED visit: HPI History of Present [...] INSJ IO LENS PROSTH W/O ECP Bilateral [facility] Family History FAMILY HISTORY Problem Relation Age of Onset Stroke Mother other (cirrhosis) Father Diabetes Br (more content not included)... [facility] 10-14-2022 Instructions Luke Barger MD - 10/14/2022 6:35 PM EDT Bring your medications with you at your next appointment Get lab work done a few days before your appointment documented in this encounter [facility] 10-14-2022 History of Presen t illness Narrative Chief Complaint Patient presents with: ER F/U HPI Richard Vargas is a 77 year old male who presents here today for ER Follow Up. Pt states he has not been taking any of his medications. Poor historia;n not sure what he has been taking. Pt here today for a [facility] ED follow up. Pt was started on Lasix 40 mg daily on 10/07/22 due to having issues with urine retention. He still has swelling in his feet and ankles. It does not improve over night. He states he was having some pain in the legs, took some Tylenol which helped. He was in [place] from Feb to Mar after having heart attack. His daughter lives with him. Depression: pt was on lexapro but stated it was stopped while he was in the [place]f. He would like to go back on it. He is feeling depressed. Denies SI/HI. He says he has an appt in 2 days with someone at [facility] for his ascites. Pt presented to [facility] ED on 10/04/22 with shortness of breath. [facility] ED visit: HPI History of Present [...] INSJ IO LENS PROSTH W/O ECP Bilateral [facility] Family History FAMILY HISTORY Problem Relation [...] Completed HPV VACCINE Aged Out Data reviewed [facility] ER reports ASSESSMENT/PLAN: 1. Hypothyroidism, unspecified [...] Avis Caruso Ma documented in this encounter [facility] 10-07-2022 Miscellaneous Notes Pt notified [...] calls to report he was at the [facility] ER 10/05 for SOB and retaining [...] Taylor Hammond LPN documented in this encounter [facility] 05-10-2022 Miscellaneous Notes OK; Rx sent to Thiago Barger MD Patient calls to request Synthroid prescription be sent to [facility]. Patient reports he is no longer using [facility]. Last OV: 05/09/2022 Next OV: 06/14/2022 Bertha Yost RN documented in this encounter [facility] 05-10-2022 Miscellaneous Notes Called and [...] Luke Barger MD documented in this encounter [facility] 05-09-2022 Note HNO ID: [id number] Author: Luke Barger MD Service: ? Author Type: Physician Type: Progress Notes Filed: 05/09/2022 5:21 PM Note Text: Chief Complaint Patient presents with: SNF follow up HPI Richard Vargas is a 76 year old male who presents here today for a SNF follow up. Pt here today for a SNF f/u. Pt admitted into [facility] on 03/06/22 with increased sob and confusion. Pt discharged on 03/13/22 to [facility]. Pt d/c home on 04/11/22. Daughter lives [...] 2 L at bedtime. Receives supplies through [employer]. Former smoker, quit in 2019. Falls - Has had several falls over the past year. Denies any new falls he believes since being d/c from [facility] on 04/11/22. Generally uses a walker/rollator or wheelchair. Pt states that when he was a [place], [facility] came out 2-3 x per week [...] - Requested for PT OT eval and school social worker to assist with discharge planning 13. Pancytopenia -due to chronic liver disease, monitoring with daily CBCs Past medical history, appointments, medications, allergies reviewed. Previous Medical History PAST MEDICAL HISTORY (more content not included)... [facility] 05-09-2022 Instructions Lucretia Arriaza Ma - 05/09/2022 10:44 AM EDT Schedule follow up with Dr. Hdez (Supply Chain Tech/GI) who you seen at [facility]. They will review your stomach and liver issues. Phone #: [phone]. Follow up in 1 month. Lexapro prescription was sent to local pharmacy. Complete labs today, will call with results. documented in this encounter [facility] 05-09-2022 History of Presen t illness Narrative Chief Complaint Patient presents with: SNF follow up HPI Richard Vargas is a 76 year old male who presents here today for a SNF follow up. Pt here today for a SNF f/u. Pt admitted into [facility] on 03/06/22 with increased sob and confusion. Pt discharged on 03/13/22 to [facility]. Pt d/c home on 04/11/22. Daughter lives [...] to himself when he remembers. Follows with [facility], wants to get new [...] 2 L at bedtime. Receives supplies through [employer]. Former smoker, quit in 2019. Falls - Has had several falls over the past year. Denies any new falls he believes since being d/c from [facility] on 04/11/22. Generally uses a walker/rollator or wheelchair. Pt states that when he was a [employer], [facility] came out 2-3 x per week [...] - Requested for PT OT eval and school social worker to assist with discharge planning [...] INSJ IO LENS PROSTH W/O ECP Bilateral [facility] Family History FAMILY HISTORY Problem Relation [...] SCREENING Completed PNEUMOCOCCAL: 65+ Completed Data reviewed [facility] documents ASSESSMENT/PLAN: 1. Hospital discharge follow-up [...] Lucretia Arriaza Ma documented in this encounter [facility] 04-25-2022 Miscellaneous Notes Pt notified [...] medication list. Can this be sent to [facility] pharmacy in [place]. Patient believes he misplaced that RX and can not find the medication, he believes he threw them away in all house cleaning. Patient has been identified by name and birthdate. Person calling: self Call patient at: at home [phone] (home) [phone] (cell) Was an appointment scheduled: No Closing statement: Results or non-symptom based questions: Thank you for calling [facility], your call will be returned within the next business day. [employer] documented in this encounter [facility] 04-25-2022 Note HNO ID: [id number] Author: Bandar Cardona, GENESIS Service: ? Author Type: CRATER AND PACKER Type: Progress Notes Filed: 04/25/2022 9:17 AM Note Text: 1. Controlled type 2 diabetes mellitus with complication, without long-term current use of insulin (HCC) Risk of diabetic changes and vision loss can be minimized by tight control of blood sugar, blood pressure, and cholesterol levels. Educated patient to continue care with primary care doctor and/or breed to wean production technician to maintain optimum levels as they are [...] Cardona, OD April 25, 2022 9:16 AM [facility] 04-25-2022 History of Presen t illness Narrative 1. Controlled type 2 diabetes mellitus with complication, without long-term current use of insulin (HCC) Risk of diabetic changes and vision loss can be minimized by tight control of blood sugar, blood pressure, and cholesterol levels. Educated patient to continue care with primary care doctor and/or breed to wean production technician to maintain optimum levels as they are [...] 2022 9:16 AM documented in this encounter [facility] 04-25-2022 Instructions Bandar Cardona, OD - 04/25/2022 9:10 AM EST Use Systane, Refresh or Blink gel once in the morning and once before bed in both eyes documented in this encounter [facility] 04-25-2022 Miscellaneous Notes Detailed VM [...] be sent today. Please call him at [phone] when sent. Patient has been identified by name and date of : Yes Requested Prescriptions Pending Prescriptions Disp Refills rOPINIRole (REQUIP) 2 mg tablet 90 tablet 3 Sig: Take 1 tablet by mouth daily at bedtime. RX INSTRUCTIONS: Patient aware RX will be sent to pharmacy. No need to notify patient. Arely Delarosa Pss documented in this encounter [facility] 01-24-2022 Note HNO ID: [id number] Author: Luke Barger MD Service: ? Author [...] back pain without sciatica, was sent to [facility] ER by [facility]. Xrays done with report below. ER discharged [...] INSJ IO LENS PROSTH W/O ECP Bilateral [facility] Family History FAMILY HISTORY Problem [...] gabapentin (NEURONTIN) 300 (more content not included)... [facility] 01-24-2022 History of Presen t illness [...] back pain without sciatica, was sent to [facility] ER by [facility]. Xrays done [...] INSJ IO LENS PROSTH W/O ECP Bilateral [facility] Family History FAMILY HISTORY Problem Relation Age [...] Avis Caruso Ma documented in this encounter [facility] 12-26-2021 Miscellaneous Notes Called and [...] pt on 12/25/21: Richard Vargas is calling Lkue Barger MD today requesting a change in medication from meloxicam do something different. Titus Mathias Please advise and return his call at [phone] Called and left a detailed voicemail notifying [...] for his arthritis ? Contact patient at [phone]. Mariah José Pss documented in this encounter [facility] 12-02-2021 History of Presen t illness Narrative Subjective The history is provided by the patient and a relative. No speech language pathology assistant was used. HPI Richard Vargas is a [...] have confirmed and edited as necessary, the [facility] Review of Systems Constitutional: Negative for chills [...] and lack of investigative tools available at [facility], recommend patient be seen at nearest ED for further work up ERpassport sent to [place] [facility] to transport, [facility]. Diagnosis and treatment plan were discussed and questions were answered to the patient's satisfaction. Pt acknowledged understanding of concepts and follow up plan. Specific signs and symptoms that would indicate the need for higher level of care were discussed in detail warranting prompt ER evaluation. Felicita Steen APRN.MARU documented in this encounter [facility] 11-16-2021 Miscellaneous Notes Noted; that should be fine Luke Barger MD documented in this encounter [facility] 11-15-2021 History of Presen t [...] INSJ IO LENS PROSTH W/O ECP Bilateral [facility] ALLERGIES Aloe Vera and Diclofenac [...] Carmen Rock APRN.CNP documented in this encounter [facility] 11-15-2021 Instructions Carmen Rock APRN.CNP [...] Carmen Rock APRN.CNP documented in this encounter [facility] 11-15-2021 Miscellaneous Notes The following approved medication requests have been transmitted electronically. Requested Prescriptions Pending Prescriptions Disp Refills rOPINIRole (REQUIP) 2 mg tablet 90 tablet 3 Sig: Take 1 tablet by mouth daily at bedtime. Filomena Allen APRN.CNP Pharmacy verified in [facility] Patient has been identified by name [...] Maria L Ortiz documented in this encounter [facility] 10-17-2021 History and physical note [...] INSJ IO LENS PROSTH W/O ECP Bilateral [facility] CURRENT MEDICATIONS Current Outpatient Medications [...] entered by the nurse and reviewed by fl Nursing Notes: Radha Arenas LPN 09/04/2021 1:22 [...] anesthetic care. This will be done in [place] Diagnoses: (L81.9) Pigmented skin lesion of uncertain [...] TIME: 8:47 AM documented in this encounter [facility] 10-11-2021 Miscellaneous Notes The following [...] Last Labs: 06/28/2021 documented in this encounter [facility] 10-05-2021 Instructions Luzmaria Ruiz APRN.TRANSPORTATION JOB TITLES - 10/05/2021 9:01 AM EDT PATIENT PREOPERATIVE INSTRUCTIONS Geovanny Baca MD has scheduled you for your procedure at this surgery center: [facility]: [phone] -- [address] [address]. Please read below carefully for your personalized [...] Procedures: - YOU MUST HAVE A RESPONSIBLE SEARCH ENGINEER TAKE YOU HOME. A PUMPING SUPERVISOR OR PIPE STEM REPAIRER CANNOT BE MADE A RESPONSIBLE SEARCH ENGINEER. - We recommend that a responsible [...] Advance Directive, please fax a copy to [phone] or email to for it to be [...] Luzmaria Ruiz APRN.MARU documented in this encounter [facility] 10-05-2021 History and physical note [...] pain, CHF, congenital heart defect, DVT/PE, recent [place], murmur/valvular heart disease, open heart surgery and [...] INSJ IO LENS PROSTH W/O ECP Bilateral [facility] FAMILY HISTORY Problem Relation Age of [...] or any previous visit (from the past 40988 hour(s)). Assessment Acquired hypothyroidism Assessment: stable on [...] sleepy during the daytime STOP-Bang Score: 7 [id number] Score: Age: >=75 Sex: male CHF history: No Hypertension history: Yes Stroke/TIA/thromboembolism history: No Vascular disease history: No Diabetes history: Yes [id number] Score: 4 ARISCAT Score: Age: 51-80 Preoperative [...] AM PAGER/CONTACT #: documented in this encounter [facility] 09-18-2021 Instructions Sulma Davis - 09/18/2021 9:02 AM EDT The following instructions are important for you related to your office visit today with the [facility] Surgeons. Instructions After Skin Excison [...] you should contact our office immediately @ [phone] and ask to be transferred to the General Surgery department. documented in this encounter [facility] 09-18-2021 History of Presen t [...] labeled. Sulma Davis documented in this encounter [facility] 09-04-2021 Instructions Geovanny Baca MD [...] If you do not have a responsible vibratory pile driver (family member or friend) with you [...] preparation solution at [facility]. 01/2019 Bowel Preparation Instructions [...] exam. 3 01/2019 documented in this encounter [facility] 09-04-2021 History of Presen t [...] INSJ IO LENS PROSTH W/O ECP Bilateral [facility] Current Outpatient Medications Medication Sig meloxicam (MOBIC) [...] entered by the nurse and reviewed by fl Nursing Notes: Radha Arenas LPN 09/04/2021 1:22 [...] anesthetic care. This will be done in [place] Diagnoses: (L81.9) Pigmented skin lesion of uncertain [...] Radha Arenas LPN documented in this encounter [facility] 09-04-2021 History of Presen t [...] butt cheek. Would like to go to Graphic Manager or Surgeon. Past medical history, appointments, medications, [...] INSJ IO LENS PROSTH W/O ECP Bilateral [facility] Family History FAMILY HISTORY Problem Relation [...] Avis Caruso Ma documented in this encounter [facility] 08-28-2021 Miscellaneous Notes See other phone note Luke Barger MD Patient reports he was seen in [facility] on 08/24/21 after a fall. He was [...] seen on 09/04. Requesting [facility] in [place]. Please call patient with advise. Thank you. documented in this encounter [facility] 08-27-2021 Miscellaneous Notes Patient went [...] something for pain. documented in this encounter [facility] 07-12-2021 Instructions Filomena Allen APRN.CNP - 07/12/2021 2:43 PM EDT 1.) Get repeat labs in 1 month. 2.) Complete stool sample to check for blood. 3.) [facility] [place] 4.) Keep scheduled appointment with [facility]ology at [place]. 5.) Continue to work on eating a low carb diet, increase protein and veggies. 6.) Follow up in 3 months or sooner as needed. documented in this encounter [facility] 07-12-2021 History of Presen t [...] INSJ IO LENS PROSTH W/O ECP Bilateral [facility] ALLERGIES: Aloe Vera and Diclofenac [...] not work. Will be seeing pulmonology at [facility] in [place] in August. Quit smoking 3 years ago. [...] INSJ IO LENS PROSTH W/O ECP Bilateral [facility] ALLERGIES Aloe Vera and Diclofenac [...] discussed and patient voices understanding. Filomena Allen APRN.TRANSPORTATION JOB TITLES This note was partially generated using [employer] recognition system. Note was reviewed for accuracy. There may be minor misspellings or grammar miscues with [employer] voice recognition. documented in this encounter [facility] 06-14-2021 History of Presen t illness Narrative [employer] Enrollment Provider Action/FYI: 3 attempts to reach patient in 2020 for enrollment unsuccessful. [employer] introduction message sent recently- not read Fifth attempt to reach patient Patient referred by: [facility] Debbie Contact made with patient: No - 2nd attempt to reach patient, left another message: Hi my name is Kacie Wood RN and I am calling from the [facility] on behalf of your PCP, Luke Barger MD. We are excited to share with you a new program to help you manage your health. Please call me back at [phone] . I hope you can take the time to speak with me. (Keep encounter open for additional two business days in case patient calls back. Close encounter if no response by end of second business day) Closing: Could not reach the patient after two attempted outreaches. Clinical Psychiatrist to retry patient in one week. 5 attempts END OUTREACH documented in this encounter [facility] 05-15-2021 Miscellaneous Notes Detailed message left on pt identified VM that he needs to make appt and get blood work done. Avis Caruso Ma OK to refill as ordered He is due for office visit and labs as ordered Luke Barger MD documented in this encounter [facility] documented as of this encounter (statuses as of 05/15/2021) [facility] History of Past illness Narrative* [...] of this encounter (statuses as of 06/14/2021) [facility] History of Past illness Narrative* [...] of this encounter (statuses as of 07/12/2021) [facility] History of Past illness Narrative* [...] of this encounter (statuses as of 08/27/2021) [facility] History of Past illness Narrative* [...] of this encounter (statuses as of 08/28/2021) [facility] History of Past illness Narrative* [...] of this encounter (statuses as of 09/04/2021) [facility] History of Past illness Narrative* [...] of this encounter (statuses as of 09/04/2021) [facility] History of Past illness Narrative* [...] of this encounter (statuses as of 09/18/2021) [facility] History of Past illness Narrative* [...] of this encounter (statuses as of 10/05/2021) [facility] History of Past illness Narrative* [...] of this encounter (statuses as of 10/11/2021) [facility] History of Past illness Narrative* [...] of this encounter (statuses as of 10/18/2021) [place] [id number] History of Past illness Narrative* Problem Noted [...] of this encounter (statuses as of 11/15/2021) [facility] History of Past illness Narrative* [...] of this encounter (statuses as of 11/16/2021) [facility] History of Past illness Narrative* [...] of this encounter (statuses as of 11/20/2021) [facility] History of Past illness Narrative* [...] of this encounter (statuses as of 12/02/2021) [facility] History of Past illness Narrative* [...] of this encounter (statuses as of 12/26/2021) [facility] History of Past illness Narrative* [...] of this encounter (statuses as of 01/24/2022) [facility] History of Past illness Narrative* [...] of this encounter (statuses as of 04/25/2022) [facility] History of Past illness Narrative* [...] of this encounter (statuses as of 04/25/2022) [facility] of Past illness Narrative* [...] of this encounter (statuses as of 04/25/2022) [facility] History of Past illness Narrative* [...] of this encounter (statuses as of 05/10/2022) [facility] History of Past illness Narrative* [...] of this encounter (statuses as of 05/10/2022) [facility] History of Past illness Narrative* [...] of this encounter (statuses as of 05/10/2022) [facility] of Past illness Narrative* [...] of this encounter (statuses as of 10/07/2022) [facility] History of Past illness Narrative* [...] of this encounter (statuses as of 10/15/2022) [facility] of Past illness Narrative* [...] of this encounter (statuses as of 11/28/2022) [facility] of Past illness Narrative* [...] of this encounter (statuses as of 12/25/2022) [facility]* Diagnosis Hypothyroidism, unspecified type- Primary Essential hypertension Unspecified essential hypertension Acquired hypothyroidism Unspecified hypothyroidism Controlled diabetes mellitus type 2 with complications, unspecified whether terminal gauger supervisor insulin use (HCC) Mixed hyperlipidemia BPH with obstruction/lower urinary tract symptoms Hypertrophy of prostate with urinary obstruction and other lower urinary tract symptoms (LUTS) documented in this encounter [facility]* Diagnosis Medicare annual wellness visit, subsequent- [...] (HCC) Paralysis agitans [facility] encounter [facility] Diagnosis Acute right-sided low back pain without sciatica- Primary Right hip pain Pain in joint, pelvic region and thigh Seborrheic keratosis Other seborrheic keratosis Difficulty sleeping Sleep disturbance, unspecified Atypical mole Benign neoplasm of skin, site unspecified documented [facility] this [facility] Diagnosis Pigmented skin lesion of uncertain nature- Primary Atypical mole Benign neoplasm of skin, site unspecified Encounter for screening for malignant neoplasm of colon Special screening for malignant neoplasms, colon documented [facility] this encounter [facility] Diagnosis Skin lesion of back- Primary Unspecified disorder of skin and subcutaneous tissue documented [facility] this [facility]* Diagnosis Pre-operative examination- Primary Preoperative examination, [...] Thrombocytopenia Thrombocytopenia, unspecified [facility] Diagnosis Acute right-sided low back pain without sciatica Right hip pain Pain in joint, pelvic region and thigh documented [facility] this encounter [facility] Diagnosis Encounter for screening for malignant neoplasm of colon- Primary Special screening for malignant neoplasms, colon documented [facility] this [facility]* Diagnosis RLS (restless legs syndrome)- Primary Restless legs syndrome (RLS) documented [facility] this encounter [facility]* Diagnosis Essential hypertension Unspecified essential hypertension RLS (restless legs syndrome) Restless legs syndrome (RLS) documented in this encounter [facility] Diagnosis Fall, initial encounter- Primary Acute right-sided low back pain without sciatica documented [facility] this encounter [facility]* Diagnosis Upper back pain- Primary Need for influenza vaccination Need for prophylactic vaccination and inoculation against influenza Wheezing [facility] Diagnosis RLS (restless legs syndrome) Restless legs syndrome (RLS) [facility]* Diagnosis Controlled type 2 diabetes mellitus with complication, without long-term current use of insulin (HCC)- Primary Dry eye syndrome of both eyes Punctate keratitis, bilateral Epiretinal membrane (ERM) of left eye Optic nerve drusen, bilateral Pseudophakia Lens replaced by other means documented [facility] this encounter [facility]* Diagnosis Hospital discharge follow-up- Primary Other [...] Thrombocytopenia Thrombocytopenia, unspecified [facility] this [facility] Diagnosis Hypothyroidism, unspecified type- Primary Essential hypertension Unspecified essential hypertension Controlled type 2 diabetes mellitus with complication, without long-term current use of insulin (HCC) Mixed hyperlipidemia Iron deficiency anemia due to chronic blood loss Iron deficiency anemia secondary to blood loss (chronic) [facility] Diagnosis Hypothyroidism, unspecified type- [...] chronic respiratory failure documented in this encounter [facility] for referral (narrative)* Outpatient Procedure (Routine) - Authorized Specialty Diagnoses / Procedures Referred By Contac t Referred To Contact DIGESTIVE DISEASE MENAN Diagnoses Encounter for screening for malignant neoplasm of colon Procedures COLONOSCOPY DIAGNOSTIC COLONOSCOPY FLX DX W/COLLJ SPEC WHEN Geovanny Long MD [address] [place] [address] [facility] [place] [address] [place] [address] Referral ID Status Reason Start Date Expiration Date Visits Requested Visits Authorized [id number] Authorized Auto-Generat ed Referral 09/04/2021 09/04/2022 [address] [facility] for referral (narrative)* Outpatient Procedure (Routine) - Closed Specialty Diagnoses / Procedures Referred By Contac t Referred To Contact [facility] Diagnoses Encounter for screening for malignant neoplasm of colon Procedures COLONOSCOPY DIAGNOSTIC COLONOSCOPY FLX DX W/COLLJ SPEC WHEN Geovanny Long MD [address] [place] [address] [address] Referral ID Status Reason Start Date Expiration Date V isits Requested Visits Authorized [id number] Closed Auto-Generate d Referral 09/04/2021 09/04/2022 1 1 [facility] Outpatient Procedure (Routine) - Closed Specialty Diagnoses / Procedures Referred By [place] white Referred To Contact [facility] Diagnoses Encounter for screening for malignant neoplasm of colon Procedures COLONOSCOPY DIAGNOSTIC COLONOSCOPY FLX DX W/COLLJ SPEC WHEN PFRMD Geovanny Baca MD [address] [place] [address] [facility] [place] [address] [place] [address] Referral ID Status Reason Start Date Expiration Date V isits Requested Visits Authorized [id number] Closed Auto-Generate d Referral 09/04/2021 09/04/2022 1 1 [facility] Instructions Name Dates Details Smoker [...] Documents on File Type Date Recorded Patient Bsa/Aml Compliance Officer Expl anation Advance Directive(s) 09/23/2008 9:59 PM Documents on File Type Date Recorded Patient Bsa/Aml Compliance Officer Expl anation Advance Directive(s) 09/23/2008 9:59 PM [...] lesion Procedures CONSULT TO DERMATOLOGY Filomena Allen APRN.[employer] [address] [place] [address] Referral ID Status Reason Start Date Expiration Date Visits Requested Visits Authorized [id number] Ref Not Required PCP Requested Referral 07/12/2021 07/12/2022 1 1 Specialty Diagnoses / Procedures Referred By Contac t Referred To Contact General Surgery Diagnoses Seborrheic keratosis Atypical mole Procedures CONSULT TO GENERAL SURGERY OFFICE/OUTPATIENT [facility] 60-74 MINUTES Luke Barger MD [address] [place] [address] Referral ID Status Reason Start Date Expiration Date V isits Requested Visits Authorized [id number] Closed PCP Requested Referral 09/04/2021 09/04/2022 1 [...] mole Procedures CONSULT TO GENERAL SURGERY OFFICE/OUTPATIENT [facility] 60-74 MINUTES Luke Barger MD [address] [place] [address] Referral ID Status Reason Start Date Expiration Date V isits Requested Visits Authorized [id number] Closed PCP Requested Referral 09/04/2021 09/04/2022 1 [...] or prosecute any alcohol or drug abuse patient.[facility] the event this information is protected by the Federal Confidentiality of Alcohol and Drug Abuse Patient Records regulations: The Federal rules restrict any use of the information to criminally investigate or prosecute any alcohol or drug abuse patient.[facility] the event this information is protected by the Federal Confidentiality of Alcohol and Drug Abuse Patient Records regulations: The Federal rules restrict any use of the information to criminally investigate or prosecute any alcohol or drug abuse patient.[facility] the event this information is protected by the Federal Confidentiality of Alcohol and Drug Abuse Patient Records regulations: The Federal rules restrict any use of the information to criminally investigate or prosecute any alcohol or drug abuse patient.[facility] the event this information is protected by the Federal Confidentiality of Alcohol and Drug Abuse Patient Records regulations: The Federal rules restrict any use of the information to criminally investigate or prosecute any alcohol or drug abuse patient.[facility] the event this information is protected by the Federal Confidentiality of Alcohol and Drug Abuse Patient Records regulations: The Federal rules restrict any use of the information to criminally investigate or prosecute any alcohol or drug abuse patient.[facility] the event this information is protected by the Federal Confidentiality of Alcohol and Drug Abuse Patient Records regulations: The Federal rules restrict any use of the information to criminally investigate or prosecute any alcohol or drug abuse patient.[facility] Hospital[facility] the event this information is protected by the Federal Confidentiality of Alcohol and Drug Abuse Patient Records regulations: The Federal rules restrict any use of the information to criminally investigate or prosecute any alcohol or drug abuse patient.[facility] Hospital[facility] the event this information is protected by the Federal Confidentiality of Alcohol and Drug Abuse Patient Records regulations: The Federal rules restrict any use of the information to criminally investigate or prosecute any alcohol or drug abuse patient.[facility] Hospital[facility] the event this information is protected by the Federal Confidentiality of Alcohol and Drug Abuse Patient Records regulations: The Federal rules restrict any use of the information to criminally investigate or prosecute any alcohol or drug abuse patient.[facility] Hospital[facility] the event this information is protected by the Federal Confidentiality of Alcohol and Drug Abuse Patient Records regulations: The Federal rules restrict any use of the information to criminally investigate or prosecute any alcohol or drug abuse patient.[facility] HospitalIn the event this information is protected by the Federal Confidentiality of Alcohol and Drug Abuse Patient Records regulations: The Federal rules restrict any use of the information to criminally investigate or prosecute any alcohol or drug abuse patient.[facility] HospitalIn the event this information is protected by the Federal Confidentiality of Alcohol and Drug Abuse Patient Records regulations: The Federal rules restrict any use of the information to criminally investigate or prosecute any alcohol or drug abuse patient.[facility] HospitalIn the event this information is protected by the Federal Confidentiality of Alcohol and Drug Abuse Patient Records regulations: The Federal rules restrict any use of the information to criminally investigate or prosecute any alcohol or drug abuse patient.[facility] HospitalIn the event this information is protected by the Federal Confidentiality of Alcohol and Drug Abuse Patient Records regulations: The Federal rules restrict any use of the information to criminally investigate or prosecute any alcohol or drug abuse patient.[facility] HospitalIn the event this information is protected by the Federal Confidentiality of Alcohol and Drug Abuse Patient Records regulations: The Federal rules restrict any use of the information to criminally investigate or prosecute any alcohol or drug abuse patient.[facility] HospitalIn the event this information is protected by the Federal Confidentiality of Alcohol and Drug Abuse Patient Records regulations: The Federal rules restrict any use of the information to criminally investigate or prosecute any alcohol or drug abuse patient.[facility] HospitalIn the event this information is protected by the Federal Confidentiality of Alcohol and Drug Abuse Patient Records regulations: The Federal rules restrict any use of the information to criminally investigate or prosecute any alcohol or drug abuse patient.[facility] HospitalIn the event this information is protected by the Federal Confidentiality of Alcohol and Drug Abuse Patient Records regulations: The Federal rules restrict any use of the information to criminally investigate or prosecute any alcohol or drug abuse patient.[facility] the event this information is protected by the Federal Confidentiality of Alcohol and Drug Abuse Patient Records regulations: The Federal rules restrict any use of the information to criminally investigate or prosecute any alcohol or drug abuse patient.[facility] HospitalIn the event this information is protected by the Federal Confidentiality of Alcohol and Drug Abuse Patient Records regulations: The Federal rules restrict any use of the information to criminally investigate or prosecute any alcohol or drug abuse patient.[facility] HospitalIn the event this information is protected by the Federal Confidentiality of Alcohol and Drug Abuse Patient Records regulations: The Federal rules restrict any use of the information to criminally investigate or prosecute any alcohol or drug abuse patient.[facility] HospitalIn the event this information is protected by the Federal Confidentiality of Alcohol and Drug Abuse Patient Records regulations: The Federal rules restrict any use of the information to criminally investigate or prosecute any alcohol or drug abuse patient.[facility] HospitalIn the event this information is protected by the Federal Confidentiality of Alcohol and Drug Abuse Patient Records regulations: The Federal rules restrict any use of the information to criminally investigate or prosecute any alcohol or drug abuse patient.[facility] HospitalIn the event this information is protected by the Federal Confidentiality of Alcohol and Drug Abuse Patient Records regulations: The Federal rules restrict any use of the information to criminally investigate or prosecute any alcohol or drug abuse patient.[facility] HospitalIn the event this information is protected by the Federal Confidentiality of Alcohol and Drug Abuse Patient Records regulations: The Federal rules restrict any use of the information to criminally investigate or prosecute any alcohol or drug abuse patient.[facility] HospitalIn the event this information is protected by the Federal Confidentiality of Alcohol and Drug Abuse Patient Records regulations: The Federal rules restrict any use of the information to criminally investigate or prosecute any alcohol or drug abuse patient.[facility] Care Teams (unrecognized sec tion and content) Histologic Aide Relationship Specialty Start Date End Date Luke Barger MD [address] [place] [address] PCP - General Family Practice 05/22/18 Histologic Aide Relationship Specialty Start Date End Date Luke Barger MD [facility] [place] [address] PCP - General Family Practice 05/22/18 Histologic Aide Relationship Specialty Start Date End Date Luke Barger MD [address] [place] [address] PCP - General Family Practice 05/22/18 Histologic Aide Relationship Specialty Start Date End Date Luke Barger MD [facility] [place] [address] PCP - General Family Practice 05/22/18 Histologic Aide Relationship Specialty Start Date End Date Luke Barger MD [address] [facility] [place] [address] PCP - General Family Practice 05/22/18 Histologic Aide Relationship Specialty Start Date End Date Luke Barger MD [address] [place] [address] [place] [address] PCP - General Family Practice 05/22/18 Histologic Aide Relationship Specialty Start Date End Date Luke Barger MD [address] [facility] [place] [address] PCP - General Family Practice 05/22/18 Histologic Aide Relationship Specialty Start Date End Date Luke Barger MD [address] [facility] [place] [address] PCP - General Family Practice 05/22/18 Histologic Aide Relationship Specialty Start Date End Date Luke Barger MD [address] [facility] [place] [address] PCP - General Family Practice 05/22/18 Histologic Aide Relationship Specialty Start Date End Date Luke Barger MD [address] [facility] [place] [address] PCP - General Family Medicine 05/22/18 Histologic Aide Relationship Specialty Start Date End Date Luke Barger MD [address] [facility] [place] [address] PCP - General Family Medicine 05/22/18 Histologic Aide Relationship Specialty Start Date End Date Luke Barger MD [address] [facility] [place] [address] PCP - General Family Medicine 05/22/18 Histologic Aide Relationship Specialty Start Date End Date Luke Barger MD [address] [facility] [place] [address] PCP - General Family Medicine 05/22/18 Histologic Aide Relationship Specialty Start Date End Date Luke Barger MD [address] [facility] [place] [address] PCP - General Family Medicine 05/22/18 Histologic Aide Relationship Specialty Start Date End Date Luke Barger MD [address] [facility] [place] [address] PCP - General Family Medicine 05/22/18 Histologic Aide Relationship Specialty Start Date End Date Luke Barger MD [address] [facility] [place] [address] PCP - General Family Medicine 05/22/18 Histologic Aide Relationship Specialty Start Date End Date Luke Barger MD [address] [facility] [place] [address] PCP - General Family Medicine 05/22/18 Histologic Aide Relationship Specialty Start Date End Date Luke Barger MD [address] [facility] [place] [address] PCP - General Family Medicine 05/22/18 Histologic Aide Relationship Specialty Start Date End Date Luke Barger MD [address] [facility] [place] [address] PCP - General Family Medicine 05/22/18 Histologic Aide Relationship Specialty Start Date End Date Luke Barger MD [address] [facility] [place] [address] PCP - General Family Medicine 05/22/18 Histologic Aide Relationship Specialty Start Date End Date Luke Barger MD [address] [facility] [place] [address] PCP - General Family Medicine 05/22/18 (unrecognized sect ion and content) No Status Records FoundNo Status Records Found INFORMATION SOURCE (unrecogn ized section and content) DATE CREATED AUTHOR AUTHOR'S ORGANIZ ATION 12/26/2022 [facility] FOR RECORDS PERTAINING TO PATIENTS WHO [...] THE PRIMARY CLINICAL RECORDS. [facility]. provides no warranty or guarantee of the accuracy or completeness of information in this document.
== END | disposition home or self-care (01) ==
LOC: POLAB3 16:11
PROVIDERS: PCP Family Medicine Geriatric Medicine; Visit Provider Family Medicine Geriatric Medicine
DX: D50.9 Iron deficiency anemia, unspecified (principal)
CPT/HCPCS: 36415; 83540; 83550; 85025

== ENCOUNTER → 2023-04-09 | Outpatient (CLI) | payer MEDICARE, OTHER, SELFPAY | END | disposition home or self-care (01) | LOC: LAB 09:47 | PROVIDERS: PCP Family Medicine Geriatric Medicine; Referring Provider Family Medicine Geriatric Medicine; Visit Provider Family Medicine Geriatric Medicine | DX: D50.9 Iron deficiency anemia, unspecified (principal) | CPT/HCPCS: 82274 ==

== ENCOUNTER → 2023-04-10 | Outpatient (CLI) | payer MEDICARE, OTHER, SELFPAY ==
[2023-04-10 09:45] VITALS: BP 139/64; PULSE 86; RESP 16; O2SAT 98
[2023-04-10] MEDS: Lidocaine 2% (20 ml mdv) 20 ML Vial INFILT (09:45)
[2023-04-10 10:00] VITALS: BP 125/55; PULSE 89; RESP 16; O2SAT 98
[2023-04-10 10:14] VITALS: BP 128/55; PULSE 76; RESP 16; O2SAT 98
[2023-04-10] MEDS: Albumin Human 25% (100 mL) 25 GM/100 ML BAG IV (10:48)
[2023-04-10] MEDS: 0.9% Saline Lock 10 ML Syringe IV (10:50)
[2023-04-10 10:52] VITALS: BP 143/43; PULSE 74; RESP 16; TEMP 36.4; O2SAT 100; BMI 30.6
--- NOTE | 2023-04-10 10:55 | PCM.OP.PRO ---
Procedure Report Date of Procedure: 04/10/23 Assessment & Plan Assessment/Plan (1) Ascites: QUALIFIERS: Ascites type: other type Qualified Code(s): R18.8 - Other ascites PLAN: PROCEDURE: Ultrasound guided paracentesis ORDERING PROVIDER: Dr. Bright INDICATION: Male, 77 years old. Ascites. PROVIDER: IVANA Hidalgo TECHNIQUE: The risks, benefits, and alternatives to the procedure were explained to the patient. The specific risks of bleeding, infection, and damage to bowel were detailed and accepted. Witnessed informed consent was obtained. The abdomen was ultrasonographically surveyed. An appropriate pocket of fluid was identified in the right upper quadrant. The skin was prepped with chlorhexidine and sterile field established. 2% lidocaine was used for local anesthetic. Using ultrasound guidance, the peritoneal cavity was accessed with a 5-Gibraltarian paracentesis needle/catheter system. The trocar was removed. A total of 5550 ml of clear yellow colored fluid was removed from the peritoneal cavity. The catheter was removed and a sterile dressing was applied. The procedure was well tolerated. IMPRESSION: Successful ultrasound-guided paracentesis with right upper quadrant access site. Procedures Radiology Radiology US Procedures: [id number] Paracentesis
[2023-04-10] MEDS: Albumin Human 25% (50 mL) 12.5 GM/50 ML IV.SOLN IV (12:12)
--- NOTE | 2023-04-10 13:05 | CASEMGMT ---
Social Work SW met with patient and completed advanced directives, naming dtr Maryanne Vargas, as HCPOA. Oriignal and two copies provided to pt. SW personally provided HIM with copy of AD to scan into chart. SW also completed Medicaid application. Faxed to [facility]. Pt stated he has not received a visit from [facility] and would still like some resources to assist with cleaning his house . SW to follow up with [facility] that pt is agreeable to visit and resources. SHAWN offered for pt to request further SW visits at [facility], if needed. SHAWN also notified nursing as well. SHRADDHA LeyvaW
[2023-04-10 13:34] VITALS: BP 126/56; PULSE 66; RESP 16; TEMP 36.3; O2SAT 97
== END | disposition home or self-care (01) ==
LOC: US 08:58
PROVIDERS: PCP Family Medicine Geriatric Medicine; Referring Provider Family Medicine Geriatric Medicine; Visit Provider Family Medicine Geriatric Medicine
DX: K74.60 Unspecified cirrhosis of liver (principal)
CPT/HCPCS: 96365; 96366 ×2; 49083; J7050; P9047

== ENCOUNTER → 2023-04-21 | Outpatient (CLI) | payer MEDICARE, OTHER, SELFPAY ==
[2023-04-21 09:51] VITALS: BP 147/78; PULSE 72; RESP 18; TEMP 37.1; O2SAT 96
[2023-04-21 09:55] VITALS: BP 143/80; PULSE 89; RESP 18; O2SAT 96
[2023-04-21] MEDS: Lidocaine 2% (20 ml mdv) 20 ML Vial INFILT (09:55)
[2023-04-21 10:10] VITALS: BP 138/71; PULSE 85; RESP 18; O2SAT 97
[2023-04-21 10:15] VITALS: BP 128/59; PULSE 83; RESP 18; TEMP 37; O2SAT 97
[2023-04-21] MEDS: 0.9% Saline Lock 10 ML Syringe IV ×2 (10:20→10:46)
[2023-04-21 10:42] VITALS: BP 146/49; PULSE 79; RESP 16; TEMP 36.4; O2SAT 99; BMI 30.7
[2023-04-21] MEDS: Albumin Human 25% (100 mL) 25 GM/100 ML BAG IV (10:52)
--- NOTE | 2023-04-21 10:55 | PRO.PCM_ITS ---
Procedure Report Date of Procedure: 04/21/23 Assessment & Plan Assessment/Plan (1) Ascites: QUALIFIERS: Ascites type: other type Qualified Code(s): R18.8 - Other ascites PLAN: PROCEDURE: Ultrasound guided paracentesis ORDERING PROVIDER: Dr. Bright INDICATION: Male, 77 years old. Ascites. PROVIDER: IVANA Hidalgo TECHNIQUE: The risks, benefits, and alternatives to the procedure were explained to the patient. The specific risks of bleeding, infection, and damage to bowel were detailed and accepted. Witnessed informed consent was obtained. The abdomen was ultrasonographically surveyed. An appropriate pocket of fluid was identified in the right lower quadrant. The skin was prepped with chlorhexidine and sterile field established. 2% lidocaine was used for local anesthetic. Using ultrasound guidance, the peritoneal cavity was accessed with a 5-Estonian paracentesis needle/catheter system. The trocar was removed. A total of 6050 ml of clear yellow colored fluid was removed from the peritoneal cavity. The catheter was removed and a sterile dressing was applied. The procedure was well tolerated. IMPRESSION: Successful ultrasound-guided paracentesis with right lower quadrant access site. Procedures Radiology Radiology US Procedures: [id number] Paracentesis
[2023-04-21] MEDS: Albumin Human 25% (50 mL) 12.5 GM/50 ML IV.SOLN IV (12:13)
== END | disposition home or self-care (01) ==
LOC: US 09:36
PROVIDERS: PCP Family Medicine Geriatric Medicine; Referring Provider Family Medicine Geriatric Medicine; Visit Provider Family Medicine Geriatric Medicine
DX: K74.60 Unspecified cirrhosis of liver (principal)
CPT/HCPCS: 96365; 96366 ×2; 49083; J7050; P9047

== ENCOUNTER → 2023-05-02 | Outpatient (CLI) | payer MEDICARE, OTHER, SELFPAY ==
[2023-05-02 09:56] VITALS: BP 153/72; PULSE 88; RESP 16; TEMP 36.4; O2SAT 98
[2023-05-02] MEDS: Lidocaine 2% (20 ml mdv) 20 ML Vial INFILT (09:56)
[2023-05-02 10:00] VITALS: BP 143/63; PULSE 81; RESP 16; O2SAT 98
[2023-05-02 10:15] VITALS: BP 141/60; PULSE 78; RESP 16; O2SAT 99
[2023-05-02 10:28] VITALS: BP 147/63; PULSE 70; RESP 16; O2SAT 98
--- NOTE | 2023-05-02 10:33 | PRO.PCM_ITS ---
Procedure Report Date of Procedure: 05/02/23 Assessment & Plan Assessment/Plan (1) Ascites: QUALIFIERS: Ascites type: other type Qualified Code(s): R18.8 - Other ascites PLAN: PROCEDURE: Ultrasound guided paracentesis ORDERING PROVIDER: Dr. Bright INDICATION: Male, 77 years old. Ascites. PROVIDER: IVANA Hidalgo TECHNIQUE: The risks, benefits, and alternatives to the procedure were explained to the patient. The specific risks of bleeding, infection, and damage to bowel were detailed and accepted. Witnessed informed consent was obtained. The abdomen was ultrasonographically surveyed. An appropriate pocket of fluid was identified in the right lower quadrant. The skin was prepped with chlorhexidine and sterile field established. 2% lidocaine was used for local anesthetic. Using ultrasound guidance, the peritoneal cavity was accessed with a 5-Micronesian paracentesis needle/catheter system. The trocar was removed. A total of 3800 ml of clear yellow colored fluid was removed from the peritoneal cavity. The catheter was removed and a sterile dressing was applied. The procedure was well tolerated. IMPRESSION: Successful ultrasound-guided paracentesis with right lower quadrant access site. Procedures Radiology Radiology US Procedures: [id number] Paracentesis
== END | disposition home or self-care (01) ==
PROVIDERS: PCP Family Medicine Geriatric Medicine; Referring Provider Family Medicine Geriatric Medicine; Visit Provider Family Medicine Geriatric Medicine
DX: R18.8 Other ascites (principal)
CPT/HCPCS: 49083

== ENCOUNTER → 2023-05-12 | Outpatient (CLI) | payer MEDICARE, OTHER, SELFPAY ==
[2023-05-12 10:15] VITALS: BP 134/46; PULSE 81; RESP 18; TEMP 35.9; O2SAT 98
[2023-05-12] MEDS: Lidocaine 2% (20 ml mdv) 20 ML Vial INFILT (10:29)
[2023-05-12 10:30] VITALS: BP 119/36; PULSE 82; RESP 16; O2SAT 98
[2023-05-12 10:45] VITALS: BP 110/47; PULSE 80; RESP 16; O2SAT 99
[2023-05-12 10:57] VITALS: BP 108/81; PULSE 91; RESP 18; O2SAT 97
--- NOTE | 2023-05-12 11:15 | PRO.PCM_ITS ---
Procedure Report Date of Procedure: 05/12/23 Assessment & Plan Assessment/Plan (1) Ascites: QUALIFIERS: Ascites type: other type Qualified Code(s): R18.8 - Other ascites PLAN: PROCEDURE: Ultrasound guided paracentesis ORDERING PROVIDER: Dr. Bright INDICATION: Male, 77 years old. Ascites. PROVIDER: IVANA Hidalgo TECHNIQUE: The risks, benefits, and alternatives to the procedure were explained to the patient. The specific risks of bleeding, infection, and damage to bowel were detailed and accepted. Witnessed informed consent was obtained. The abdomen was ultrasonographically surveyed. An appropriate pocket of fluid was identified in the right lower quadrant. The skin was prepped with chlorhexidine and sterile field established. 2% lidocaine was used for local anesthetic. Using ultrasound guidance, the peritoneal cavity was accessed with a 5-Central African paracentesis needle/catheter system. The trocar was removed. A total of 5050 ml of clear yellow colored fluid was removed from the peritoneal cavity. The catheter was removed and a sterile dressing was applied. The procedure was well tolerated. IMPRESSION: Successful ultrasound-guided paracentesis with right lower quadrant access site Procedures Radiology Radiology US Procedures: [id number] Paracentesis
[2023-05-12 11:17] VITALS: PULSE 80; RESP 18; TEMP 36.7; O2SAT 100; BMI 29.9
[2023-05-12] MEDS: Albumin Human 25% (100 mL) 25 GM/100 ML BAG IV (11:43)
[2023-05-12 13:22] VITALS: BP 134/68; PULSE 78
== END | disposition home or self-care (01) ==
LOC: US 09:25
PROVIDERS: PCP Family Medicine Geriatric Medicine; Referring Provider Family Medicine Geriatric Medicine; Visit Provider Family Medicine Geriatric Medicine
DX: K74.60 Unspecified cirrhosis of liver (principal)
CPT/HCPCS: 96365; 96366; 49083; J7050; P9047; A4216

== ENCOUNTER → 2023-05-22 | Outpatient (CLI) | payer MEDICARE, OTHER, SELFPAY ==
[2023-05-22 09:40] VITALS: BP 139/62; PULSE 84; RESP 18; TEMP 36.3; O2SAT 97
[2023-05-22] MEDS: Lidocaine 2% (20 ml mdv) 20 ML Vial INFILT (09:43)
[2023-05-22 09:55] VITALS: BP 141/62; PULSE 84; RESP 18; O2SAT 98
[2023-05-22 10:05] VITALS: BP 133/64; PULSE 84; RESP 18; O2SAT 98
--- NOTE | 2023-05-22 10:07 | PRO.PCM_ITS ---
Procedure Report Date of Procedure: 05/22/23 Assessment & Plan Assessment/Plan (1) Ascites: QUALIFIERS: Ascites type: other type Qualified Code(s): R18.8 - Other ascites PLAN: PROCEDURE: Ultrasound guided paracentesis ORDERING PROVIDER: Dr. Bright INDICATION: Male, 77 years old. Ascites. PROVIDER: IVANA Hidalgo TECHNIQUE: The risks, benefits, and alternatives to the procedure were explained to the patient. The specific risks of bleeding, infection, and damage to bowel were detailed and accepted. Witnessed informed consent was obtained. The abdomen was ultrasonographically surveyed. An appropriate pocket of fluid was identified in the right lower quadrant. The skin was prepped with chlorhexidine and sterile field established. 2% lidocaine was used for local anesthetic. Using ultrasound guidance, the peritoneal cavity was accessed with a 5-Cook Islander paracentesis needle/catheter system. The trocar was removed. A total of 3950 ml of clear yellow colored fluid was removed from the peritoneal cavity. The catheter was removed and a sterile dressing was applied. The procedure was well tolerated. IMPRESSION: Successful ultrasound-guided paracentesis with right lower quadrant access site. Procedures Radiology Radiology US Procedures: [id number] Paracentesis
== END | disposition home or self-care (01) ==
PROVIDERS: PCP Family Medicine Geriatric Medicine; Referring Provider Family Medicine Geriatric Medicine; Visit Provider Family Medicine Geriatric Medicine
DX: K74.60 Unspecified cirrhosis of liver (principal)
CPT/HCPCS: 49083

== ENCOUNTER → 2023-06-02 | Outpatient (CLI) | payer MEDICARE, OTHER, SELFPAY ==
[2023-06-02] MEDS: Lidocaine 2% (20 ml mdv) 20 ML Vial INFILT (09:52)
[2023-06-02 09:57] VITALS: BP 133/55; PULSE 78; RESP 18; TEMP 37.3; O2SAT 97
[2023-06-02 10:05] VITALS: BP 125/57; PULSE 69; RESP 18; O2SAT 97
[2023-06-02] MEDS: 0.9% Saline Lock 10 ML Syringe IV (10:17)
[2023-06-02 10:18] VITALS: BP 120/54; PULSE 79; RESP 18; O2SAT 98
--- NOTE | 2023-06-02 10:35 | PRO.PCM_ITS ---
Procedure Report Date of Procedure: 06/02/23 Assessment & Plan Assessment/Plan (1) Ascites: QUALIFIERS: Ascites type: other type Qualified Code(s): R18.8 - Other ascites PLAN: PROCEDURE: Ultrasound guided paracentesis ORDERING PROVIDER: Dr. Bright INDICATION: Male, 77 years old. Ascites. PROVIDER: IVANA Hidalgo TECHNIQUE: The risks, benefits, and alternatives to the procedure were explained to the patient. The specific risks of bleeding, infection, and damage to bowel were detailed and accepted. Witnessed informed consent was obtained. The abdomen was ultrasonographically surveyed. An appropriate pocket of fluid was identified in the left lower quadrant. The skin was prepped with chlorhexidine and sterile field established. 2% lidocaine was used for local anesthetic. Using ultrasound guidance, the peritoneal cavity was accessed with a 5-Canadian paracentesis needle/catheter system. The trocar was removed. A total of 6500 ml of clear yellow colored fluid was removed from the peritoneal cavity. The catheter was removed and a sterile dressing was applied. The procedure was well tolerated. IMPRESSION: Successful ultrasound-guided paracentesis with left lower quadrant access site. Procedures Radiology Radiology US Procedures: [id number] Paracentesis
[2023-06-02] MEDS: Albumin Human 25% (100 mL) 25 GM/100 ML BAG IV (10:59)
[2023-06-02] MEDS: Albumin Human 25% (50 mL) 12.5 GM/50 ML IV.SOLN IV (12:33)
[2023-06-02 13:42] VITALS: BP 134/44; PULSE 79; RESP 16; TEMP 36.5; O2SAT 97
== END | disposition home or self-care (01) ==
LOC: US 09:16
PROVIDERS: PCP Family Medicine Geriatric Medicine; Referring Provider Family Medicine Geriatric Medicine; Visit Provider Family Medicine Geriatric Medicine
DX: K74.60 Unspecified cirrhosis of liver (principal)
CPT/HCPCS: 96365; 96366 ×2; 49083; J7050; P9047; A4216

== ENCOUNTER 2023-06-03 02:58 | Emergency (ER) | payer MEDICARE, OTHER, SELFPAY ==
[2023-06-03 03:00] VITALS: BP 136/99; PULSE 87; RESP 16; TEMP 36.2; O2SAT 82; BMI 29.6
--- NOTE | 2023-06-03 03:17 | CT_ITS ---
INDICATION: back pain EXAMINATION: CT LUMBAR SPINE - CT Spine Lumbar W/O Contrast Injection TECHNIQUE: Helically acquired images were obtained of the lumbar spine. 2D reformats were reviewed. A radiation dose optimization technique was used for this scan. IV Contrast dosage and agent: None. RADIATION DOSAGE (If Supplied By Facility): CTDIvol = ( 15.53 ) mGy, DLP = ( 594.89 ) mGycm COMPARISON: CT abdomen/pelvis dated 03/04/2023 FINDINGS: VERTEBRAE: New age-indeterminate mild superior endplate compression deformity at L2 results in 10% height loss anteriorly. No loss of posterior vertebral body height. Chronic mild anterior wedge compression fracture at L3. Chronic compression fractures at T10 and T11 are unchanged. No discrete lytic or blastic abnormality observed. Mild left convex lumbar scoliosis. DISCS and SPINAL CANAL: There is loss of disc space height throughout the lumbar spine, most pronounced at L3-4 and L4-5 with accompanying endplate osteophytes. There is a diffuse disc bulge at L2-3 and at least moderate central canal stenosis at this level. There is a diffuse disc bulge at L3-4 conjunction with facet arthropathy leads to least moderate right neural foraminal narrowing and at least moderate central canal stenosis. Diffuse disc bulge and endplate osteophytes at L4-5 lead to at least moderate bilateral neural foraminal narrowing and at least mild central canal stenosis. Endplate osteophytes and a broad-based posterior disc protrusion in conjunction with facet arthropathy leads to severe left and moderate right neural foraminal narrowing without significant central canal stenosis. VISUALIZED ABDOMEN: Visualized abdominal aorta is not dilated. There is no retroperitoneal adenopathy. Small perihepatic ascites. CT/Spine Lumbar without Contrast IMPRESSION: * New age-indeterminate mild superior endplate compression fracture at L2 resulting in 10% height loss. * Chronic compression fractures at T10 and T11, unchanged. * Chronic mild anterior wedge compression fracture at L3 is unchanged. * Lumbar spondylosis with varying degrees of foraminal narrowing and central canal stenosis as described. Electronically Signed: Rohith Price MD at 4:25 EDT ,
[2023-06-03 03:25] VITALS: BP 170/95; RESP 16; O2SAT 98
[2023-06-03] MEDS: Ondansetron 4 MG/2 ML Vial IV (03:26)
[2023-06-03] MEDS: Morphine 4 MG/ML Syringe IV (03:26)
[2023-06-03] MEDS: Gabapentin 100 MG Capsule PO (03:46)
--- NOTE | 2023-06-03 04:53 | EDS_ITS ---
HPI History of Present Illness Chief Complaint: Back Informant: patient and family Narrative Narrative: Patient is a 77-year-old male with past medical history of hypertension hyperlipidemia COPD and insulin-dependent diabetes. He states roughly 10 to 14 days ago he tripped over a cord and fell striking his mid to low back on a plastic handle of a vacuum janitor cleaner. He states he had pain at that time but did not want to come into the hospital for evaluation. He states that there has been no loss of bowel or bladder control since the trauma and he denies any IV drug use or fevers or chills but states that despite taking Tylenol pain has persisted and therefore he comes in for evaluation. He states that there has been no repeat trauma since that initial injury [facility] Medical History (Updated 06/03/23 @ 05:[address] Angel Luis Okeefe DO) Anxiety Asthma COPD (chronic obstructive pulmonary disease) Diabetes Former smoker Hyperlipidemia Hypertension Liver disease Parkinsonian features Home Medications tamsulosin 0.4 mg capsule 0.8 mg PO QHS prostate 06/26/15 [History Last Taken 06/25/15] carbidopa 25 mg-levodopa 100 mg tablet 2 tab PO TIDAC parkinsons 09/11/15 [History Last Taken Unknown] empagliflozin 10 mg tablet (Jardiance) 10 mg PO DAILY diabetes 01/09/18 [History Last Taken Unknown] levothyroxine 125 mcg tablet (Levoxyl) 125 mcg PO DAILY THYROID 03/06/22 [History Last Taken Unknown] ropinirole 2 mg tablet 2 mg PO QHS RESTLESS LEGS 03/06/22 [History Last Taken Unknown] trazodone 50 mg tablet 30 mg PO DAILY SLEEP 03/06/22 [History Last Taken Unknown] acetaminophen 325 mg tablet (Tylenol) 650 mg (2 x 325 mg) PO Q6H PRN PRN Pain 1- 10 Or Fever >100.7 #0 tabs 03/13/22 [Rx Last Taken Unknown] insulin lispro 100 unit/mL subcutaneous pen (Humalog KwikPen (U-100) Insulin) See Protocol subcut ACHS #0 mL 03/13/22 [Rx Last Taken Unknown] sucralfate 1 gram tablet 1 g PO 1HR_ACHS #0 tabs 03/13/22 [Rx Last Taken Unkn own] furosemide 40 mg tablet 40 mg PO BID diuretic #30 tabs 02/21/23 [Rx Last Taken Unknown] lactulose 20 gram/30 mL oral solution 20 g (30 mL) PO BID #3,000 mL 02/21/23 [Rx Last Taken Unknown] nadolol 20 mg tablet 10 mg (1/2 x 20 mg) PO DAILY 1 month #30 tabs 02/21/23 [Rx Last Taken Unknown] pantoprazole 40 mg tablet,delayed release 40 mg PO DAILY #30 tabs 02/21/23 [Rx Last Taken Unknown] rifaximin 550 mg tablet (Xifaxan) 550 mg PO BID 1 month #60 tabs 02/21/23 [Rx Last Taken Unknown] spironolactone 50 mg tablet 50 mg PO DAILY #30 tabs 02/21/23 [Rx Last Taken Unknown] gabapentin 100 mg capsule 100 mg PO TID 30 days #90 caps 06/03/23 [Rx Last Taken Unknown] oxycodone 5 mg capsule 5 mg PO Q6H PRN pain 3 days #12 caps 06/03/23 [Rx Last Taken Unknown] Allergy/AdvReac Type Severity Reaction Status Date / Time aloe vera AdvReac Rash Verified 06/03/23 02:59 diclofenac AdvReac intolerance, Verified 06/03/23 02:59 leg edema Surgical History Hx of hand surgery Social History Smoking Status: Former smoker ROS ROS ED Constitutional Constitutional ED: Denies chills or fever(s) Eyes Eyes: Denies blurry vision, change in vision or diplopia ENT ENT ED: Denies sore throat Cardiovascular Cardiovascular: Denies chest pain Respiratory/Chest Respiratory/Chest: Denies cough or dyspnea Gastrointestinal Gastrointestinal: Denies abdominal pain, diarrhea, nausea or vomiting Genitourinary Genitourinary ED: Denies dysuria, hematuria or urinary frequency Musculoskeletal Musculoskeletal: Reports back pain; Denies neck pain Integumentary Denies Abrasions or rash Neurologic Neurologic: Denies headache(s), paresthesias or weakness Hematologic/Lymphatic Hematologic/Lymphatic: Denies easy bleeding or easy bruising EXAM Physical Exam Const Vital Signs: 06/03/23 03:00 06/03/23 03:25 Temperature 97.2 F L Temperature Source Temporal Pulse Rate 87 Respiratory Rate 16 16 Blood Pressure 136/99 H 170/95 H Blood Pressure Mean 111 120 Pulse Ox 82 98 Oxygen Delivery Method Room Air Room Air Positive well nourished and well developed General Appearance ED: well developed; Negative for pallor HEENT HEENT Narrative: Normocephalic atraumatic Eyes PERRL and EOMs intact bilaterally General Eye ED: Negative for scleral icterus Neck supple Neck Narrative: No bony deformity or step-off of the cervical spine no midline pain with palpation Chest Wall palpation of chest normal Chest Narrative: No bony deformity or crepitance Resp normal respiratory effort Resp Narrative: Breath sounds are diminished throughout with diffuse expiratory wheeze consistent with history of COPD but no signs of respiratory distress Cardio regular rate and regular rhythm Rate: other Other Details: Radial and carotid pulses are equal and symmetric GI normal to inspection, nondistended, normoactive bowel sounds, non-tender, non- distended and no masses GI Narrative: No voluntary guarding or rigidity or pulsatile mass Auscultation: normoactive bowel sounds Palpation: soft Back/Spine Back/Spine Narrative: No bony deformity or step-off of the thoracic or lumbar spine but there is midline tenderness to palpation along the lower thoracic to upper lumbar region. No saddle anesthesia. Negative straight leg raise. No clonus or Babinski. Patellar reflexes are plus 1 out of 4 bilaterally Extremity Extremity Narrative: Patient has chronic +1-2 pitting edema to the bilateral lower extremities that is equal and symmetric Negative Homans' sign bilaterally Otherwise no obvious bony deformity or joint effusion or signs of trauma Neuro oriented x3 and CN's II-XII intact bilaterally Sensorium / Orientation: alert Psych mental status grossly normal Skin no rashes or lesions noted and no wounds General Skin Exam: Negative for jaundice or pallor MDM MDM MDM Narrative Medical decision making narrative: Patient presented to the ER hypertensive otherwise with stable vitals. He reported a mechanical fall that led to direct trauma of his mid to low back roughly 10 to 14 days ago. Since that time there is been no loss of bowel or bladder and he denies IV drug use. There my concern for cauda equina or epidural abscess is low. Soft tissue does not reveal any findings concerning for cellulitis or shingles. No obvious abscess formation is noted. Patient also denies any dysuria going against UTI/pyelonephritis. With concern for compression fracture versus spondylolisthesis a CT scan of the lumbar spine was obtained. This showed a new L2 compression fracture with chronic T10/11 and L3 fractures. At this time the patient is neurovascularly intact and his imaging correlates with his recent fall and location of pain. As he is neurovascularly intact there is no need for emergent orthopedic consultation. Therefore will be placed on pain control and is otherwise safe for discharge History & Record Review Discussion w/independent historian: Patient and Family Radiography Diagnostic Testing: Clinical Impression(s) from Imaging Studies Lumbar Spine CT 06/03/23 03:17 IMPRESSION: * New age-indeterminate mild superior endplate compression fracture at L2 resulting in 10% height loss. * Chronic compression fractures at T10 and T11, unchanged. * Chronic mild anterior wedge compression fracture at L3 is unchanged. * Lumbar spondylosis with varying degrees of foraminal narrowing and central canal stenosis as described. Electronically Signed: Rohith Price MD at 4:25 EDT Reading Location ID and State: [address] [place] [address] Tel , Service support , Discharge Plan Triage Chief Complaint: Back ED Provider: Angel Luis Okeefe Dx/Rx/DC Orders Clinical Impression: Closed compression fracture of L2 vertebra, Insulin dependent diabetes mellitus, COPD (chronic obstructive pulmonary disease), Hypertension Instructions: ED Fracture, Vertebral Compression Prescriptions: New oxycodone 5 mg capsule 5 mg PO Q6H PRN (Reason: pain) 3 Days Qty: 12 0RF gabapentin 100 mg capsule 100 mg PO TID 30 Days Qty: 90 1RF No Action furosemide 40 mg tablet 40 mg PO BID Qty: 30 2RF spironolactone 50 mg tablet 50 mg PO DAILY Qty: 30 2RF lactulose 20 gram/30 mL solution 20 g PO BID Qty: 3000 2RF Rx Instructions: Titrate to goal of 2-3 soft bowel movements per day Xifaxan 550 mg tablet 550 mg PO BID 30 Days Qty: 60 2RF pantoprazole 40 mg tablet,delayed release (DR/EC) 40 mg PO DAILY Qty: 30 2RF nadolol 20 mg tablet 10 mg PO DAILY 30 Days Qty: 30 2RF Rx Instructions: Hold for heart less than 50 or systolic blood pressure less than 90 mmHg. tamsulosin 0.4 MG capsule 0.8 mg PO QHS carbidopa-levodopa 1 TABLET tablet 2 tab PO TIDAC Jardiance 10 MG tablet 10 mg PO DAILY trazodone 50 mg tablet 30 mg PO DAILY ropinirole 2 mg tablet 2 mg PO QHS levothyroxine [Levoxyl] 125 mcg tablet 125 mcg PO DAILY acetaminophen [Tylenol] 325 mg Tablet 650 mg PO Q6H PRN PRN (Reason: Pain 1-10 Or Fever >100.7) Qty: 0 0RF sucralfate 1 gram Tablet 1 g PO 1HR_ACHS Qty: 0 0RF insulin lispro [Humalog KwikPen Insulin] 100 unit/mL Insulin Pen See Protocol subcut ACHS Qty: 0 0RF Protocol: 1. Sliding Scale Insulin Low Dosing Condition: 150-224 mg/dl = 1 unit Condition: 225-299 mg/dl = 2 units Condition: 300-374 mg/dl = 3 units Condition: 375-499 mg/dl = 4 units Condition: Greater than 449 call physician Protocol Text: - Use for Total Daily Dose of Insulin 15-27 units - Thin, elderly, renal patients LOW DOSING ALGORITHM Primary Care Provider: Roger Bright Chi Referrals: Teofilo Youngblood MD [Med Staff - Active Staff] - Roger Bright Chi, MD [Primary Care Provider] - Activity Restrictions/Additional Instructions: Your CT scan shows that you have chronic fractures to the T10 and T11 vertebrae as well as the L3 vertebrae with a new fracture of the L2 vertebrae. Based on these recurrent/chronic fractures please follow-up with orthopedic spine surgeon Dr. Youngblood to discuss further treatment options and return to the ER should you have any further concerns Disposition Disposition: Home, Self Care Discharge Date/Time: 06/03/23 05:13
[2023-06-03] MEDS: HYDROmorphone 1 MG/ML Syringe IV (04:57)
[2023-06-03 05:11] VITALS: BP 153/98; PULSE 81; RESP 12; TEMP 36.1; O2SAT 95
== END 2023-06-03 05:13 | disposition home or self-care (01) ==
PROVIDERS: Emergency Provider Emergency Medicine; PCP Family Medicine Geriatric Medicine; Visit Provider Emergency Medicine
DX: S32.020A Wedge compression fracture of second lumbar vertebra, initial encounter for closed fracture (principal); J44.9 Chronic obstructive pulmonary disease, unspecified; E11.9 Type 2 diabetes mellitus without complications; Z79.4 Long term (current) use of insulin; Z87.891 Personal history of nicotine dependence; W19.XXXA Unspecified fall, initial encounter
CPT/HCPCS: 72131; 96374; 96375; 99283; A4216; J2405

== ENCOUNTER 2023-06-06 20:09 | Observation (INO) | payer MEDICARE, OTHER, SELFPAY ==
[2023-06-06 20:10] VITALS: BP 159/98; PULSE 58; RESP 16; TEMP 36.2; O2SAT 96; BMI 29.9
--- NOTE | 2023-06-06 21:15 | EX.ED.DYSGE1 ---
HPI History of Present Illness Chief Complaint: Back Narrative Narrative: 77-year-old male past medical history of hypertension, COPD, diabetes, Parkinson's, cirrhosis with ascites which he usually has paracentesis every 11 days now, presents with debility and adult failure to thrive. He was seen in the emergency department approximately 2 days ago. He was diagnosed with a new L2 compression fracture after tripping over a cord and falling on the handle of a vacuum globe cleaner. At that time, he was also diagnosed with other compression fractures. His primary care physician, Dr. Bright, has called in and states that he is not doing well at home, barely getting out of bed, and while he lives with his daughter, she is not always available. He would like him admitted/observed for placement in the TCU hopefully where he could get pain management involved with his care. Patient denies any new symptoms, no chest pain, no shortness of breath, no fevers or chills. PFSH [facility] Medical History Anxiety Asthma COPD (chronic obstructive pulmonary disease) Diabetes Former smoker Hyperlipidemia Hypertension Liver disease Parkinsonian features Home Medications tamsulosin 0.4 mg capsule 0.8 mg PO QHS prostate 06/26/15 [History Last Taken 06/25/15] carbidopa 25 mg-levodopa 100 mg tablet 2 tab PO TIDAC parkinsons 09/11/15 [History Last Taken Unknown] empagliflozin 10 mg tablet (Jardiance) 10 mg PO DAILY diabetes 01/09/18 [History Last Taken Unknown] levothyroxine 125 mcg tablet (Levoxyl) 125 mcg PO DAILY THYROID 03/06/22 [History Last Taken Unknown] ropinirole 2 mg tablet 2 mg PO QHS RESTLESS LEGS 03/06/22 [History Last Taken Unknown] trazodone 50 mg tablet 30 mg PO DAILY SLEEP 03/06/22 [History Last Taken Unknown] acetaminophen 325 mg tablet (Tylenol) 650 mg (2 x 325 mg) PO Q6H PRN PRN Pain 1-10 Or Fever >100.7 #0 tabs 03/13/22 [Rx Last Taken Unknown] insulin lispro 100 unit/mL subcutaneous pen (Humalog KwikPen (U-100) Insulin) See Protocol subcut ACHS #0 mL 03/13/22 [Rx Last Taken Unknown] sucralfate 1 gram tablet 1 g PO 1HR_ACHS #0 tabs 03/13/22 [Rx Last Taken Unknown] furosemide 40 mg tablet 40 mg PO BID diuretic #30 tabs 02/21/23 [Rx Last Taken Unknown] lactulose 20 gram/30 mL oral solution 20 g (30 mL) PO BID #3,000 mL 02/21/23 [Rx Last Taken Unknown] nadolol 20 mg tablet 10 mg (1/2 x 20 mg) PO DAILY 1 month #30 tabs 02/21/23 [Rx Last Taken Unknown] pantoprazole 40 mg tablet,delayed release 40 mg PO DAILY #30 tabs 02/21/23 [Rx Last Taken Unknown] rifaximin 550 mg tablet (Xifaxan) 550 mg PO BID 1 month #60 tabs 02/21/23 [Rx Last Taken Unknown] spironolactone 50 mg tablet 50 mg PO DAILY #30 tabs 02/21/23 [Rx Last Taken Unknown] gabapentin 100 mg capsule 100 mg PO TID 30 days #90 caps 06/03/23 [Rx Last Taken Unknown] oxycodone 5 mg capsule 5 mg PO Q6H PRN pain 3 days #12 caps 06/03/23 [Rx Last Taken Unknown] Allergy/AdvReac Type Severity Reaction Status Date / Time aloe vera AdvReac Rash Verified 06/06/23 20:14 diclofenac AdvReac intolerance, Verified 06/06/23 20:14 leg edema Surgical History Hx of hand surgery Social History Smoking Status: Former smoker ROS ROS ED ROS Narrative Constitutional: No fever, no chills. Decreased energy, difficulty getting in and out of bed. HEENT: No sore throat. No neck pain. No loss of vision. No rhinorrhea. Cardiovascular: No chest pain. No palpitations. No pedal edema. Respiratory: No cough, no new shortness of breath. Abdominal: No abdominal pain. No nausea. No vomiting. Genitourinary: No dysuria. No hematuria. Musculoskeletal: No myalgias. No arthralgias. Positive back pain. Neurologic: No headaches. No dizziness. No lightheadedness. Skin: No rash. No change in color. Psychiatric: No depression. No anxiety. EXAM Physical Exam Narrative Exam Narrative: Afebrile. Vital signs noted. HEENT: Normocephalic. Atraumatic. PERRL, EOMI. Neck soft and supple. No point tenderness or step off. Cardiovascular: Regular rate and rhythm. No murmurs, rubs, or gallops appreciated. Respiratory: No tachypnea. Lungs clear to auscultation bilaterally. Gastrointestinal: Abdomen soft, nontender, with normoactive bowel sounds. No rebound or guarding. Neurological: Awake. Alert. Nonfocal, nonlateralizing. Neurovascular intact bilateral lower extremities. Skin: No rash. Normal color. No pallor. Musculoskeletal: No pedal edema. Full range of motion extremities. Const Vital Signs: 06/06/23 20:10 06/06/23 22:10 Temperature 97.1 F L Temperature Source Temporal Pulse Rate 58 L 76 Respiratory Rate 16 18 Blood Pressure 159/98 H Blood Pressure Mean 118 Pulse Ox 96 94 Oxygen Delivery Method Room Air Room Air MDM MDM MDM Narrative Medical decision making narrative: There is not really a differential diagnosis for this patient. He has intractable back pain, debility, and adult failure to thrive. I will obtain a CBC and a CMP has baseline labs along with a urinalysis. IV will be placed. He needs to be observed overnight for placement. I reviewed his laboratory work and he has normal white count of 5.8, hemoglobin stable at 10.2, platelet count low at 105. When compared to other laboratories/previous laboratory work, this is a chronic thrombocytopenia. Review of his electrolytes reveal a normal sodium of 142, potassium normal at 4.7, anion gap low at 4. BUN of 25 with creatinine of 1.20. AST and ALT are normal at 34 and 24. Chest x-ray in 1 view interpreted by myself shows no evidence of an acute process. I reviewed the radiology report which confirms my independent interpretation. Patient has been unable to give a urine sample as he states he urinated prior to arrival. He requested fluids. Given his history of ascites and cirrhosis which requires drainage, he will be given a small 500 mL bolus of normal saline and oral fluids. I discussed patient with Dr. Burleson. He will be placed on observation on the medical surgical floor. Patient is in stable condition. History & Record Review Discussion w/independent historian: Patient and Family Lab Data Attestation: I reviewed the patient's lab results. Labs: Laboratory Results - last 24 hr 06/06/23 06/06/23 21:50 23:40 WBC 5.8 RBC 3.15 L Hgb 10.2 L Hct 32.5 L MCV 103.2 H MCH 32.4 H MCHC 31.4 L RDW Std Deviation 53.8 H RDW Coeff of Jean Claude 14.2 Plt Count 105 L MPV 9.2 Immature Gran % (Auto) 0.300 Neut % (Auto) 78.9 H Lymph % (Auto) 10.2 L [place] % (Auto) 8.2 Eos % (Auto) 1.7 Baso % (Auto) 0.7 Absolute Neuts (auto) 4.5 Absolute Lymphs (auto) 0.59 L Nucleated RBC % 0 Differential Comment SEE COMMENT Platelet Estimate SLT DEC RBC Morphology N CHROM Anisocytosis 1+ Macrocytosis 1+ Sodium 142 Potassium 4.7 Chloride 107 Carbon Dioxide 31.0 Anion Gap 4 L BUN 25 H Creatinine 1.20 Estim Creat Clear Calc 49.11 Est GFR (MDRD) Af Amer 75 Est GFR (MDRD) Non-Af 62 BUN/Creatinine Ratio 20.8 H Glucose 125 H Calcium 8.3 L Total Bilirubin 2.40 H AST 34 ALT 24 Alkaline Phosphatase 129 H Total Protein 6.2 L Albumin 2.7 L Globulin 3.5 Albumin/Globulin Ratio 0.8 L Urine Color Jill Urine Clarity Clear Urine pH 8.0 Ur Specific [place] 1.010 Urine Protein 15 H Urine Glucose (UA) Normal Urine Ketones 5 H Urine Occult Blood Negative Urine Nitrite Negative Urine Bilirubin Negative Urine Urobilinogen 4 H Ur Leukocyte Esterase 25 H Radiography Diagnostic Testing: Clinical Impression(s) from Imaging Studies Chest X-Ray 06/06/23 22:51 IMPRESSION: No acute disease Electronically Signed: Mio Durham MD at 23:47 EDT , Management Discussion w/another healthcare provider: Hospitalist (Dr. Burleson) Discharge Plan Triage Chief Complaint: Back ED Provider: Yovany Albright Dx/Rx/DC Orders Clinical Impression: Closed compression fracture of L2 vertebra, Cirrhosis, Parkinsons disease, Insulin dependent diabetes mellitus, COPD (chronic obstructive pulmonary disease), Unable to care for self, Intractable low back pain Prescriptions: No Action furosemide 40 mg tablet 40 mg PO BID Qty: 30 2RF spironolactone 50 mg tablet 50 mg PO DAILY Qty: 30 2RF lactulose 20 gram/30 mL solution 20 g PO BID Qty: 3000 2RF Rx Instructions: Titrate to goal of 2-3 soft bowel movements per day Xifaxan 550 mg tablet 550 mg PO BID 30 Days Qty: 60 2RF pantoprazole 40 mg tablet,delayed release (DR/EC) 40 mg PO DAILY Qty: 30 2RF nadolol 20 mg tablet 10 mg PO DAILY 30 Days Qty: 30 2RF Rx Instructions: Hold for heart less than 50 or systolic blood pressure less than 90 mmHg. tamsulosin 0.4 MG capsule 0.8 mg PO QHS carbidopa-levodopa 1 TABLET tablet 2 tab PO TIDAC Jardiance 10 MG tablet 10 mg PO DAILY trazodone 50 mg tablet 30 mg PO DAILY ropinirole 2 mg tablet 2 mg PO QHS levothyroxine [Levoxyl] 125 mcg tablet 125 mcg PO DAILY acetaminophen [Tylenol] 325 mg Tablet 650 mg PO Q6H PRN PRN (Reason: Pain 1-10 Or Fever >100.7) Qty: 0 0RF sucralfate 1 gram Tablet 1 g PO 1HR_ACHS Qty: 0 0RF insulin lispro [Humalog KwikPen Insulin] 100 unit/mL Insulin Pen See Protocol subcut ACHS Qty: 0 0RF Protocol: 1. Sliding Scale Insulin Low Dosing Condition: 150-224 mg/dl = 1 unit Condition: 225-299 mg/dl = 2 units Condition: 300-374 mg/dl = 3 units Condition: 375-499 mg/dl = 4 units Condition: Greater than 449 call physician Protocol Text: - Use for Total Daily Dose of Insulin 15-27 units - Thin, elderly, renal patients LOW DOSING ALGORITHM oxycodone 5 mg capsule 5 mg PO Q6H PRN (Reason: pain) 3 Days Qty: 12 0RF gabapentin 100 mg capsule 100 mg PO TID 30 Days Qty: 90 1RF Primary Care Provider: Roger Bright Chi Referrals: Roger Bright Chi, MD [Primary Care Provider] -
[2023-06-06 22:06] LABS: Absolute Lymphocyte Count 0.59 X10^3/uL (0.83-4.51); Absolute Neutrophil Count 4.5 X10^3/uL (2.0-7.7); Basophil# 0.04 X10^3/uL; Basophil% 0.7 % (0-1); Eosinophils% 1.7 % (0-5); Hematocrit 32.5 % (40-54); Hemoglobin 10.2 g/dL (13.0-16.5); Lymphocyte # 0.59 X10^3/ul (0.83-4.51); Lymphocyte % 10.2 % (19-41); Mean Corp Hgb Conc 31.4 g/dL (32-36); Mean Corpuscular Hgb 32.4 pg (27.0-32.0); Mean Corpuscular Volume 103.2 fL (80-94); Mean Platelet Vol. 9.2 fl (6.2-12.0); Monocyte# 0.47 X10^3/uL; Monocyte% 8.2 % (0-10); NRBC Flagged by Analyzer 0 % (0-5); Neutrophil # 4.54 X10^3/uL (2.7-7.7); Neutrophil % 78.9 % (47-70); POSITIVE DIFFERENTIAL YES; Platelet Count 105 K/mm3 (150-450); RBC Distribution Width CV 14.2 % (11.6-14.6); RBC Distribution Width SD 53.8 fl (35.1-43.9); Red Blood Count 3.15 M/mm3 (4.6-6.2); White Blood Count 5.8 K/mm3 (4.4-11.0)
[2023-06-06 22:10] VITALS: PULSE 76; RESP 18; O2SAT 94
[2023-06-06 22:12] LABS: Differential Indicated SCAN CRITERIA MET
[2023-06-06 22:22] LABS: ALB/GLOB Ratio 0.8 RATIO (0.9-2.4); AST(SGOT) 34 U/L (15-37); Alanine Aminotransfer ALT/SGPT 24 U/L (16-61); Albumin, Serum 2.7 g/dL (3.2-5.0); Alkaline Phosphatase 129 U/L (45-117); Anion Gap 4 (5-15); BUN 25 mg/dL (7-18); BUN/Creat Ratio 20.8 RATIO (10-20); Calcium,Total 8.3 mg/dL (8.5-10.1); Chloride 107 mmol/L (98-107); EST Glomerular Filtration Rate 62 mL/min (>60); Est Glom Filt Rate - Afr Amer 75 mL/min (>60); Estimated Creatinine Clearance 49.11 ml/min; Globulin 3.5 g/dL (2.2-4.2); Glucose 125 mg/dL (74-106); Potassium 4.7 mmol/L (3.5-5.1); Protein, Total 6.2 g/dL (6.4-8.2); Sodium Level 142 mmol/L (136-145)
[2023-06-06 22:32] LABS: Anisocytosis 1+; Macrocytosis 1+; Platelet Estimate SLT DEC (ADEQ); Red Cell Morphology N CHROM NORMAL (NORM C&C)
--- NOTE | 2023-06-06 22:51 | RAD_ITS ---
STUDY: X-RAY CHEST REASON FOR EXAM: Male, 77 years old. cad TECHNIQUE: Single frontal view of the chest. COMPARISON: CT chest January 21, 2023. Chest x-ray October 04, 2022. FINDINGS: Elevated right hemidiaphragm. The lungs are clear and expanded. There is no demonstrated pleural abnormality. Normal size heart. Normal mediastinum and kenny. Normal visualized pulmonary arteries. Normal visualized aortic arch and descending thoracic aorta. Normal visualized thoracic spine. Multiple old rib fractures on the left. There is no demonstrated abnormality of the visualized soft tissue structures of the upper abdomen. RAD/Chest 1 View (Portable) IMPRESSION: No acute disease Electronically Signed: Mio Durham MD at 23:47 EDT ,
[2023-06-06] MEDS: 0.9% Normal Saline (500mL Bag) 500 ML 999 ML IV (23:41)
[2023-06-06 23:57] LABS: Mucous, Urine 0 SEEN /hpf (<or=2+); Red Blood Cells-Urine 0 SEEN /hpf (0-5); Squamous Epithelial Cells - UA 0 SEEN /hpf (0-5)
[2023-06-06 23:58] LABS: Color, Urine Amber (Yellow); Glucose, Dipstick Normal (Normal); Ketone-Dipstick 5 mg/dl (Negative); Leukocyte Esterase-Dipstick 25 /ul (Negative); Nitrite-Dipstick Negative (Negative); Occult Blood-Urine Negative /ul (Negative); Protein-Dipstick 15 mg/dl (Negative); Urine Bilirubin Dipstick Negative (Negative); Urine Clarity Clear (Clear); Urine Urobilinogen 4 mg/dl (Normal)
[2023-06-07] VITALS: BP 167/74; PULSE 78; RESP 18; O2SAT 96
[2023-06-07 00:05] LABS: Bacteria 1+ /hpf (None Seen); White Blood Cells 5-10 SEEN /hpf (0-5)
--- NOTE | 2023-06-07 00:05 | HP.PCM.HOS_ITS ---
HPI - General General Date of Admission: 06/07/23 HPI Narrative RICHARD PARRY, is a 77 M who presents to the hospital with back pain. He was vacuuming a few weeks ago and tripped over the cord and landed on a vacuum drain cleaner plumber handle. Presented to the ER day or 2 ago and had a CT scan of his lumbar spine which demonstrated a 10% loss of height compression fracture of his L2. Pain sits in the midline of his back and he has been having difficulty ambulating because of the pain. No numbness or tingling or loss of bowel or bladder function. Denies any fevers or chills. He does have an extensive medical history however he states that it has been several months since he is taken any of his home medications. [facility] Medical History Anxiety Asthma COPD (chronic obstructive pulmonary disease) Diabetes Former smoker Hyperlipidemia Hypertension Liver disease Parkinsonian features Home Medications tamsulosin 0.4 mg capsule 0.8 mg PO QHS prostate 06/26/15 [History Last Taken 06/25/15] carbidopa 25 mg-levodopa 100 mg tablet 2 tab PO TIDAC parkinsons 09/11/15 [History Last Taken Unknown] empagliflozin 10 mg tablet (Jardiance) 10 mg PO DAILY diabetes 01/09/18 [History Last Taken Unknown] levothyroxine 125 mcg tablet (Levoxyl) 125 mcg PO DAILY THYROID 03/06/22 [History Last Taken Unknown] ropinirole 2 mg tablet 2 mg PO QHS RESTLESS LEGS 03/06/22 [History Last Taken Unknown] trazodone 50 mg tablet 30 mg PO DAILY SLEEP 03/06/22 [History Last Taken Unknown] acetaminophen 325 mg tablet (Tylenol) 650 mg (2 x 325 mg) PO Q6H PRN PRN Pain 1- 10 Or Fever >100.7 #0 tabs 03/13/22 [Rx Last Taken Unknown] insulin lispro 100 unit/mL subcutaneous pen (Humalog KwikPen (U-100) Insulin) See Protocol subcut ACHS #0 mL 03/13/22 [Rx Last Taken Unknown] sucralfate 1 gram tablet 1 g PO 1HR_ACHS #0 tabs 03/13/22 [Rx Last Taken Unknown] furosemide 40 mg tablet 40 mg PO BID diuretic #30 tabs 02/21/23 [Rx Last Taken Unknown] lactulose 20 gram/30 mL oral solution 20 g (30 mL) PO BID #3,000 mL 02/21/23 [Rx Last Taken Unknown] nadolol 20 mg tablet 10 mg (1/2 x 20 mg) PO DAILY 1 month #30 tabs 02/21/23 [Rx Last Taken Unknown] pantoprazole 40 mg tablet,delayed release 40 mg PO DAILY #30 tabs 02/21/23 [Rx Last Taken Unknown] rifaximin 550 mg tablet (Xifaxan) 550 mg PO BID 1 month #60 tabs 02/21/23 [Rx Last Taken Unknown] spironolactone 50 mg tablet 50 mg PO DAILY #30 tabs 02/21/23 [Rx Last Taken Unknown] gabapentin 100 mg capsule 100 mg PO TID 30 days #90 caps 06/03/23 [Rx Last Taken Unknown] oxycodone 5 mg capsule 5 mg PO Q6H PRN pain 3 days #12 caps 06/03/23 [Rx Last Taken Unknown] Allergy/AdvReac Type Severity Reaction Status Date / Time aloe vera AdvReac Rash Verified 06/06/23 20:14 diclofenac AdvReac intolerance, Verified 06/06/23 20:14 leg edema Family History (Updated 06/07/23 @ 01:[address] Misael Burleson MD) Other Cancer Surgical History Hx of hand surgery Social History (Updated 06/07/23 @ 02:51 by Veronica Ortega) household members: children housing: apartment Smoking Status: Former smoker ROS Constitutional Constitutional: Denies chills, fatigue, fever(s) or malaise Eyes Eyes: Denies blurry vision ENT HEENT: Denies headache(s) or nasal discharge Cardiovascular Cardiovascular: Denies chest pain, dyspnea on exertion or syncope Respiratory/Chest Respiratory/Chest: Denies cough, shortness of breath at rest or shortness of breath with exertion Gastrointestinal Gastrointestinal: Denies constipation, diarrhea, nausea or vomiting Genitourinary Genitourinary: Denies dysuria Musculoskeletal Musculoskeletal: Reports back pain Neurologic Neurologic: Denies focal weakness, numbness or tremor(s) Psychiatric Psychiatric: Denies anxiety or depression Vital Signs Vital Signs Vital Signs: 06/06/23 20:10 06/06/23 22:10 Temperature 97.1 F L Temperature Source Temporal Pulse Rate 58 L 76 Respiratory Rate 16 18 Blood Pressure 159/98 H Blood Pressure Mean 118 Pulse Ox 96 94 Oxygen Delivery Method Room Air Room Air Weight Weight: 180 lb Body Mass Index (BMI) 29.9 Physical Exam Narrative General: Alert, Oriented x3, Cooperative, No apparent distress HEENT: Atraumatic, PERRLA, EOMI, Normocephalic Oral: Moist Mucosa Neck: Supple, No JVD Lungs: Diminished, Normal air movement, No rhonchi, No wheeze, No rales Cardiovascular: Regular rate, Regular Rhythm, Normal S1, Normal S2, No murmurs Abdomen: Soft, Non Tender, Non-Distended, No Hepato-splenomegaly Extremities: No edema, Capillary Refill Less than 3 Seconds Skin: No rashes, No breakdown Musculoskeletal: Tenderness to palpation of his mid lumbar spine Neurological: No focal neurological deficits, Motor Exam 5/5 strength throughout, Sensory exam intact to light touch and pain Psych/Mental Status: Normal Affect, Appropriate Results Lab / Micro Data 06/06/23 21:50 06/06/23 21:50 Labs: Laboratory Results - last 24 hr 06/06/23 21:50: WBC 5.8, RBC 3.15 L, Hgb 10.2 L, Hct 32.5 L, MCV 103.2 H, MCH 32.4 H, MCHC 31.4 L, RDW Std Deviation 53.8 H, RDW Coeff of Jean Claude 14.2, Plt Count 105 L, MPV 9.2, Immature Gran % (Auto) 0.300, Neut % (Auto) 78.9 H, Lymph % (Auto) 10.2 L, [place] % (Auto) 8.2, Eos % (Auto) 1.7, Baso % (Auto) 0.7, Absolute Neuts (auto) 4.5, Absolute Lymphs (auto) 0.59 L, Nucleated RBC % 0, Differential Comment SEE COMMENT, Platelet Estimate SLT DEC, RBC Morphology N CHROM, Anisocytosis 1+, Macrocytosis 1+, Sodium 142, Potassium 4.7, Chloride 107, Carbon Dioxide 31.0, Anion Gap 4 L, BUN 25 H, Creatinine 1.20, Estim Creat Clear Calc 49.11, Est GFR (MDRD) Af Amer 75, Est GFR (MDRD) Non-Af 62, BUN/Creatinine Ratio 20.8 H, Glucose 125 H, Calcium 8.3 L, Total Bilirubin 2.40 H, AST 34, ALT 24, Alkaline Phosphatase 129 H, Total Protein 6.2 L, Albumin 2.7 L, Globulin 3.5, Albumin/Globulin Ratio 0.8 L 06/06/23 23:40: Urine Color Jill, Urine Clarity Clear, Urine pH 8.0, Ur Specific [place] 1.010, Urine Protein 15 H, Urine Glucose (UA) Normal, Urine Ketones 5 H, Urine Occult Blood Negative, Urine Nitrite Negative, Urine Bilirubin Negative, Urine Urobilinogen 4 H, Ur Leukocyte Esterase 25 H Imaging Radiology Impression Chest X-Ray 06/06/23 22:51 IMPRESSION: No acute disease Electronically Signed: Mio Durham MD at 23:47 EDT , Assessment & Plan Assessment/Plan (1) Intractable low back pain: PLAN: Plan 1. Intractable low back pain ? Will continue with tizanidine as well as lidocaine patches and Tylenol ? Will try to hold off narcotics is much as possible ? PT/OT 2. It does appear that he has a history of Parkinson's disease as well as heart failure, type 2 diabetes, hypothyroidism, GERD, liver disease, BPH however he states that he has not taken any of his medications in months. Will obtain a CMP and a TSH. DVT: Heparin 75 minutes was spent on direct patient care, including documentation as well as chart review and collaboration with colleagues Charges/Coding Visit Charges Inpatient E&M: 21685 Init Hosp L3
--- NOTE | 2023-06-07 00:14 | NURSING ---
unable to obtain med rec as patient states that he only cares about the ropinirole and he hasn't taken his other medications in an unkown amount of time. Daughter present and also does not know medications.
[2023-06-07 00:51] VITALS: BP 145/74; PULSE 99; RESP 20; TEMP 37.1; O2SAT 97
[2023-06-07 02:43] VITALS: BMI 28.2
[2023-06-07] MEDS: Pramipexole Di-HCl 1 MG Tablet PO ×2 (03:34→21:20)
[2023-06-07] MEDS: tiZANidine HCl 2 MG Tablet 4 MG PO (03:34)
[2023-06-07] MEDS: Heparin Injection (Vial) 5,000 UNIT/ML VIAL 5000 UNIT SC (06:34)
--- NOTE | 2023-06-07 07:23 | PCM.PN.HOSP ---
Reason for Visit Reason for Visit: Diagnoses Other low back pain (06/07/23) Subjective Subjective Patient is a 77-year-old gentleman admitted with intractable back pain Objective Data Objective Data Vital Signs: Vital Signs Temp Pulse Resp BP Pulse Ox O2 Del Method 98.7 F 99 20 H 145/74 H 97 Room Air 06/07/23 00:51 06/07/23 00:51 06/07/23 00:51 06/07/23 00:51 06/07/23 00:51 06/07/23 00:00 Oxygen Delivery Method Room Air Weight: 77 kg Body Mass Index (BMI) 28.2 Intake & Output: Intake and Output for Last 24 Hours 06/05/23 06/06/23 06/07/23 23:59 23:59 23:59 Intake Total 500 / 500 Balance 500 / 500 Lab / Micro Data 06/07/23 07:47 06/07/23 07:47 Labs: Laboratory Results - last 24 hr 06/06/23 21:50: WBC 5.8, RBC 3.15 L, Hgb 10.2 L, Hct 32.5 L, MCV 103.2 H, MCH 32.4 H, MCHC 31.4 L, RDW Std Deviation 53.8 H, RDW Coeff of Jean Claude 14.2, Plt Count 105 L, MPV 9.2, Immature Gran % (Auto) 0.300, Neut % (Auto) 78.9 H, Lymph % (Auto) 10.2 L, [place] % (Auto) 8.2, Eos % (Auto) 1.7, Baso % (Auto) 0.7, Absolute Neuts (auto) 4.5, Absolute Lymphs (auto) 0.59 L, Nucleated RBC % 0, Differential Comment SEE COMMENT, Platelet Estimate SLT DEC, RBC Morphology N CHROM, Anisocytosis 1+, Macrocytosis 1+, Sodium 142, Potassium 4.7, Chloride 107, Carbon Dioxide 31.0, Anion Gap 4 L, BUN 25 H, Creatinine 1.20, Estim Creat Clear Calc 49.11, Est GFR (MDRD) Af Amer 75, Est GFR (MDRD) Non-Af 62, BUN/Creatinine Ratio 20.8 H, Glucose 125 H, Calcium 8.3 L, Total Bilirubin 2.40 H, AST 34, ALT 24, Alkaline Phosphatase 129 H, Total Protein 6.2 L, Albumin 2.7 L, Globulin 3.5, Albumin/Globulin Ratio 0.8 L 06/06/23 23:40: Urine Color Jill, Urine Clarity Clear, Urine pH 8.0, Ur Specific [place] 1.010, Urine Protein 15 H, Urine Glucose (UA) Normal, Urine Ketones 5 H, Urine Occult Blood Negative, Urine Nitrite Negative, Urine Bilirubin Negative, Urine Urobilinogen 4 H, Ur Leukocyte Esterase 25 H, Urine RBC 0 SEEN, Urine WBC 5-10 SEEN, Ur Squamous Epith Cells 0 SEEN, Urine Bacteria 1+, Urine Mucus 0 SEEN Radiography Diagnostic Testing: Radiology Impression Chest X-Ray 06/06/23 22:51 IMPRESSION: No acute disease Electronically Signed: Mio Durham MD at 23:47 EDT , Physical Exam Narrative GENERAL: cooperative HEENT: Atraumatic; normocephalic EYES; Anicteric, Normal Conjunctiva NECK; supple, normal thyroid, RESPIRATORY: Diminished to auscultation CARDIOVASCULAR: Regular S1 S2, GI: soft, normoactive bowel sounds, distended abdomen : No Renal angle tenderness; EXTREMITIES: No edema, no clubbing, MUSCULOSKELETAL: no muscle wasting NEURO: Awake; no lateralizing signs. SKIN: No Rash PSYCH; Flat affect Assessment & Plan Assessment/Plan (1) Intractable low back pain: PLAN: Plan Patient is a 77-year-old gentleman admitted with intractable back pain 1. Acute on chronic back pain ? Imaging studies obtained on admission did show New age-indeterminate mild superior endplate compression fracture at L2 resulting in 10% height loss. Chronic compression fractures at T10 and T11, unchanged. Chronic mild anterior wedge compression fracture at L3 is unchanged. Lumbar spondylosis with varying degrees of foraminal narrowing and central canal stenosis. Patient has been admitted to regular nursing floor for symptom management 2. Physical deconditioning secondary to above - Requested for PT OT eval and mental health social worker to assist with discharge planning 3. Alcoholic cirrhosis of the liver ? Patient is on rifaximin, nadolol and lactulose 4. Recurrent ascites ? Secondary to alcoholic liver cirrhosis. Patient undergoes scheduled ultrasound-guided paracentesis as outpatient 5. Thrombocytopenia ? Secondary to chronic liver disease monitoring with daily CBC with differential 6. Anemia - Secondary to chronic disorder monitoring H&H and transfuse if patient becomes symptomatic or hemoglobin falls below 7 7. GERD ? On PPI 8. BPH with lower urinary obstructive symptoms - Patient treated with tamsulosin 9. Hypothyroidism - Patient is on levothyroxine home dose continued 10. DVT prophylaxis ? Discontinued patient heparin given his low platelet counts Time spent in the patient's overall evaluation,decision-making process, review of diagnostic data, adjustment of management, discussion with other providers, nursing nursing and ancillary staff involved in patient's care documentation, 51 Minutes Charges/Coding Visit Charges In[facility] E[facility]M: 10118 [facility]
[2023-06-07 08:19] LABS: Absolute Lymphocyte Count 0.67 X10^3/uL (0.83-4.51); Absolute Neutrophil Count 2.3 X10^3/uL (2.0-7.7); Basophil# 0.01 X10^3/uL; Basophil% 0.3 % (0-1); Eosinophil# 0.11 X10^3/uL; Eosinophils% 3.2 % (0-5); Hemoglobin 8.2 g/dL (13.0-16.5); Lymphocyte # 0.67 X10^3/ul (0.83-4.51); Lymphocyte % 19.5 % (19-41); Mean Corp Hgb Conc 31.5 g/dL (32-36); Mean Corpuscular Hgb 32.9 pg (27.0-32.0); Mean Corpuscular Volume 104.4 fL (80-94); Mean Platelet Vol. 9.3 fl (6.2-12.0); Monocyte# 0.34 X10^3/uL; Monocyte% 9.9 % (0-10); NRBC Flagged by Analyzer 0 % (0-5); Neutrophil # 2.31 X10^3/uL (2.7-7.7); Neutrophil % 67.1 % (47-70); POSITIVE COUNT YES; Platelet Count 72 K/mm3 (150-450); RBC Distribution Width CV 14.1 % (11.6-14.6); RBC Distribution Width SD 53.1 fl (35.1-43.9); Red Blood Count 2.49 M/mm3 (4.6-6.2); White Blood Count 3.4 K/mm3 (4.4-11.0)
[2023-06-07 08:20] LABS: Differential Indicated SCAN CRITERIA MET
[2023-06-07 08:45] LABS: ALB/GLOB Ratio 0.7 RATIO (0.9-2.4); AST(SGOT) 24 U/L (15-37); Alanine Aminotransfer ALT/SGPT 19 U/L (16-61); Albumin, Serum 2.2 g/dL (3.2-5.0); Alkaline Phosphatase 107 U/L (45-117); Anion Gap 0 (5-15); BUN 27 mg/dL (7-18); BUN/Creat Ratio 21.8 RATIO (10-20); Calcium,Total 7.6 mg/dL (8.5-10.1); Chloride 110 mmol/L (98-107); Creatinine, Serum 1.24 mg/dL (0.70-1.30); EST Glomerular Filtration Rate 60 mL/min (>60); Est Glom Filt Rate - Afr Amer 72 mL/min (>60); Estimated Creatinine Clearance 46.26 ml/min; Glucose 142 mg/dL (74-106); Potassium 4.8 mmol/L (3.5-5.1); Protein, Total 5.2 g/dL (6.4-8.2); Sodium Level 141 mmol/L (136-145); Thyroid Stim Hormone (TSH) 5.02 uIU/mL (0.358-3.74)
[2023-06-07 09:55] VITALS: BP 108/54; PULSE 68; RESP 16; TEMP 36.7; O2SAT 97
[2023-06-07] MEDS: Lidocaine 5% Patch 1 PATCH TOPICAL (10:02)
[2023-06-07 10:08] LABS: Differential Comment SCANNED; Platelet Estimate MKD DEC (ADEQ)
--- NOTE | 2023-06-07 13:13 | CASEMGMT ---
RN CM in to discuss AMOS form with patient. RN CM explained AMOS form, patient voiced understanding. Pt declined to sign AMOS form, stating he would sign it when his daughter was present. Daughter not present at this time. Noted the above on the AMOS form. Pt provided with a copy of AMOS form. Patient had no further questions or concerns at this time. Jill Staples MSN, RN, CCM
--- NOTE | 2023-06-07 13:44 | CASEMGMT ---
RN TRENT Assessment: Face to Face with pt for initial transition planning/care coordination assessment. RN CM introduced self and role at [facility], pt voices understanding and consents to assessment. Pt is A&O x4 and answers all questions appropriately at this time. Care providers, pharmacy, and demographics verified/updated. Admitting Dx: Back Pain PCP:Dr. Bright Preferred Pharmacy: [facility] Insurance: [facility] A/B Prescription Benefit: yes LNOK: Daughter Maryanne Living Arrangements: Pt lives at home with daughter. Single story home with no stairs. Pt gets assist with ADLs and IADLs from daughter. Transportation: Pt drives self and denies concerns with transportation. DME: Cane for longer distances, shower chair, grab bars in bathroom Pt states no concerns with going home at time of dc. Pt states no further concerns/needs. CM to follow. Advised pt to ask CM if any further question/concerns/needs arise, voices understanding. Pt Goal: Home Plan: Home with no skilled needs. 6 clicks noted to be 12 on nursing assessment, awaiting therapy evaluations. Pt reports that his PCP will help him with whatever he needs and that the CM cannot do anything for him. Pt reports he will be going home tomorrow. Pt reports he has been trying to get help cleaning his house and he cannot even get that. Pt declines to further discuss DC planning and requests to be left alone. Jill Staples MSN, RN, [facility]
[2023-06-07 14:47] VITALS: BP 112/70; PULSE 80; RESP 16; TEMP 36.6; O2SAT 97
[2023-06-07] MEDS: Acetaminophen 500 MG Tablet 1000 MG PO ×2 (14:50→21:19)
--- NOTE | 2023-06-07 18:00 | CASEMGMT ---
Social Work - [facility] assessment Met with patient and daughter, introducing to self and SW role. Asked daughter to leave, as per protocol for screening questions. Daughter asked to stay due to being the [facility], but this senior mortgage underwriter reinforced that screening is done privately, but daughter can come back in afterwards. Daughter did so then, after reinforcement. Completed screening, which patient denied any concerns. Brought daughter back in. Daughter mentioned patient need therapy and wants to do this at [facility]. This senior mortgage underwriter understood patient may be interested in SNF for rehab. Printed [facility] list of SNF, for full range of options. When returned to room, patient reported that does not want to stay overnight at [facility]. Daughter encouraged patient to this, but patient maintained that plans to go home. Patient willing to do outpatient therapy, and would like to do this at [facility]. Educated to [facility]. Educated to hospital van service, and daughter interested in this as daughter does work 3rd shift. Educated that when calling to arrange for patient PT, to let scheduling know of need for hospital van, then treatments would be coordinated off of this. Educated that patient must be able to get in and out of the van independently. Patient reports to feel able to do so. Printed [facility] prescription and attached to green sheet, for nursing to follow in case of weekend discharge, so that order for Outpatient PT could be made. Plan: Return home with daughter assist. Patient and daughter live in same home. Outpatient PT at [facility] if ordered at discharge. -PA Godoy
[2023-06-07 21:00] VITALS: BP 116/52; PULSE 86; RESP 18; TEMP 36.7; O2SAT 98
[2023-06-07] MEDS: Gabapentin 100 MG Capsule PO (21:22)
[2023-06-07 22:47] LABS: Bedside Glucose 121 mg/dL (74-106)
[2023-06-08 03:00] VITALS: BP 126/48; PULSE 71; RESP 16; TEMP 36.8; O2SAT 98
[2023-06-08 06:04] LABS: Absolute Lymphocyte Count 0.99 X10^3/uL (0.83-4.51); Absolute Neutrophil Count 2.3 X10^3/uL (2.0-7.7); Basophil# 0.02 X10^3/uL; Basophil% 0.5 % (0-1); Eosinophil# 0.22 X10^3/uL; Eosinophils% 5.6 % (0-5); Lymphocyte # 0.99 X10^3/ul (0.83-4.51); Lymphocyte % 25.3 % (19-41); Mean Corp Hgb Conc 32.1 g/dL (32-36); Mean Corpuscular Hgb 33.5 pg (27.0-32.0); Mean Corpuscular Volume 104.1 fL (80-94); Mean Platelet Vol. 9.1 fl (6.2-12.0); Monocyte# 0.41 X10^3/uL; Monocyte% 10.5 % (0-10); NRBC Flagged by Analyzer 0 % (0-5); Neutrophil # 2.26 X10^3/uL (2.7-7.7); Neutrophil % 57.8 % (47-70); POSITIVE COUNT YES; Platelet Count 97 K/mm3 (150-450); RBC Distribution Width CV 14.5 % (11.6-14.6); Red Blood Count 2.69 M/mm3 (4.6-6.2); White Blood Count 3.9 K/mm3 (4.4-11.0)
[2023-06-08 06:25] LABS: AST(SGOT) 24 U/L (15-37); Alanine Aminotransfer ALT/SGPT 19 U/L (16-61); Albumin, Serum 2.2 g/dL (3.2-5.0); Alkaline Phosphatase 117 U/L (45-117); Anion Gap 2 (5-15); BUN 32 mg/dL (7-18); BUN/Creat Ratio 23.7 RATIO (10-20); Bilirubin, Direct 0.46 mg/dL (0.00-0.30); Calcium,Total 7.6 mg/dL (8.5-10.1); Chloride 108 mmol/L (98-107); Creatinine, Serum 1.35 mg/dL (0.70-1.30); EST Glomerular Filtration Rate 54 mL/min (>60); Est Glom Filt Rate - Afr Amer 65 mL/min (>60); Estimated Creatinine Clearance 42.49 ml/min; Glucose 138 mg/dL (74-106); Potassium 4.5 mmol/L (3.5-5.1); Protein, Total 5.2 g/dL (6.4-8.2); Sodium Level 140 mmol/L (136-145)
[2023-06-08] MEDS: Carbidopa/Levodopa 25/100 Tablet PO (06:32)
[2023-06-08] MEDS: Levothyroxine 125 MCG Tablet PO (06:32)
[2023-06-08] MEDS: Acetaminophen 500 MG Tablet 1000 MG PO (06:32)
[2023-06-08] MEDS: Gabapentin 100 MG Capsule PO (06:37)
[2023-06-08 06:50] LABS: Bedside Glucose 142 mg/dL (74-106)
--- NOTE | 2023-06-08 07:58 | PCM.PN.HOSP ---
Reason for Visit Reason for Visit: Diagnoses Other low back pain (06/07/23) Subjective Subjective Patient seen pain is tolerable patient to be assessed for possible discharge Objective Data Objective Data Vital Signs: Vital Signs Temp Pulse Resp BP Pulse Ox O2 Del Method O2 Flow Rate 98.2 F 71 16 126/48 H 98 Nasal Cannula 2 06/08/23 03:00 06/08/23 03:00 06/08/23 03:00 06/08/23 03:00 06/08/23 03:00 06/08/23 03:00 06/08/23 03:00 Oxygen Flow Rate (L/min) 2 Oxygen Delivery Method Nasal Cannula Weight: 77 kg Body Mass Index (BMI) 28.2 Intake & Output: Intake and Output for Last 24 Hours 06/06/23 06/07/23 06/08/23 23:59 23:59 23:59 Intake Total 500 / 650 270 / 270 Balance 500 / 650 270 / 270 Lab / Micro Data 06/08/23 05:30 06/08/23 05:30 Labs: Laboratory Results - last 24 hr 06/07/23 07:47: WBC 3.4 L, RBC 2.49 L, Hgb 8.2 L, Hct 26.0 L, MCV 104.4 H, MCH 32.9 H, MCHC 31.5 L, RDW Std Deviation 53.1 H, RDW Coeff of Jean Claude 14.1, Plt Count 72 L, MPV 9.3, Immature Gran % (Auto) 0.000, Neut % (Auto) 67.1, Lymph % (Auto) 19.5, [place] % (Auto) 9.9, Eos % (Auto) 3.2, Baso % (Auto) 0.3, Absolute Neuts (auto) 2.3, Absolute Lymphs (auto) 0.67 L, Nucleated RBC % 0, Differential Comment SCANNED, Platelet Estimate MKD DEC, Sodium 141, Potassium 4.8, Chloride 110 H, Carbon Dioxide 31.0, Anion Gap 0 L, BUN 27 H, Creatinine 1.24, Estim Creat Clear Calc 46.26, Est GFR (MDRD) Af Amer 72, Est GFR (MDRD) Non-Af 60, BUN/Creatinine Ratio 21.8 H, Glucose 142 H, Calcium 7.6 L, Total Bilirubin 1.50 H, AST 24, ALT 19, Alkaline Phosphatase 107, Total Protein 5.2 L, Albumin 2.2 L, Globulin 3.0, Albumin/Globulin Ratio 0.7 L, TSH 5.02 H 06/07/23 21:15: POC Glucose 121 H 06/08/23 05:30: WBC 3.9 L, RBC 2.69 L, Hgb 9.0 L, Hct 28.0 L, MCV 104.1 H, MCH 33.5 H, MCHC 32.1, RDW Std Deviation 54.0 H, RDW Coeff of Jean Claude 14.5, Plt Count 97 L, MPV 9.1, Immature Gran % (Auto) 0.300, Neut % (Auto) 57.8, Lymph % (Auto) 25.3, [place] % (Auto) 10.5 H, Eos % (Auto) 5.6 H, Baso % (Auto) 0.5, Absolute Neuts (auto) 2.3, Absolute Lymphs (auto) 0.99, Nucleated RBC % 0, Sodium 140, Potassium 4.5, Chloride 108 H, Carbon Dioxide 30.0, Anion Gap 2 L, BUN 32 H, Creatinine 1.35 H, Estim Creat Clear Calc 42.49, Est GFR (MDRD) Af Amer 65, Est GFR (MDRD) Non-Af 54 L, BUN/Creatinine Ratio 23.7 H, Glucose 138 H, Calcium 7.6 L, Phosphorus 4.0, Magnesium 2.0, Total Bilirubin 1.20 H, Direct Bilirubin 0.46 H, AST 24, ALT 19, Alkaline Phosphatase 117, Total Protein 5.2 L, Albumin 2.2 L, Globulin 3.0 06/08/23 06:29: POC Glucose 142 H Physical Exam Narrative GENERAL: cooperative HEENT: Atraumatic; normocephalic EYES; Anicteric, Normal Conjunctiva NECK; supple, normal thyroid, RESPIRATORY: Diminished to auscultation CARDIOVASCULAR: Regular S1 S2, GI: soft, normoactive bowel sounds, distended abdomen : No Renal angle tenderness; EXTREMITIES: No edema, no clubbing, MUSCULOSKELETAL: no muscle wasting NEURO: Awake; no lateralizing signs. SKIN: No Rash PSYCH; Flat affect Assessment & Plan Assessment/Plan (1) Intractable low back pain: PLAN: Plan Patient is a 77-year-old gentleman admitted with intractable back pain 1. Acute on chronic back pain ? Imaging studies obtained on admission did show New age-indeterminate mild superior endplate compression fracture at L2 resulting in 10% height loss. Chronic compression fractures at T10 and T11, unchanged. Chronic mild anterior wedge compression fracture at L3 is unchanged. Lumbar spondylosis with varying degrees of foraminal narrowing and central canal stenosis. Patient has been admitted to regular nursing floor for symptom management 2. Physical deconditioning secondary to above - Requested for PT OT eval and forensic social worker to assist with discharge planning 3. Alcoholic cirrhosis of the liver ? Patient is on rifaximin, nadolol and lactulose 4. Recurrent ascites ? Secondary to alcoholic liver cirrhosis. Patient undergoes scheduled ultrasound-guided paracentesis as outpatient 5. Thrombocytopenia ? Secondary to chronic liver disease monitoring with daily CBC with differential 6. Anemia - Secondary to chronic disorder monitoring H&H and transfuse if patient becomes symptomatic or hemoglobin falls below 7 7. GERD ? On PPI 8. BPH with lower urinary obstructive symptoms - Patient treated with tamsulosin 9. Hypothyroidism - Patient is on levothyroxine home dose continued 10. DVT prophylaxis ? Discontinued patient heparin given his low platelet counts Time spent in the patient's overall evaluation,decision-making process, review of diagnostic data, adjustment of management, discussion with other providers, nursing nursing and ancillary staff involved in patient's care documentation, 35
[2023-06-08 08:34] VITALS: BP 128/93; PULSE 96; RESP 16; TEMP 36.4; O2SAT 98
[2023-06-08] MEDS: Lidocaine 5% Patch 1 PATCH TOPICAL (08:38)
--- NOTE | 2023-06-08 09:56 | DS.PCM_ITS ---
Providers Date of Admission: 06/07/23 Date of Discharge: 06/08/23 Primary Care Physician: Dr. Roger Bright MD Reason For Visit: BACK PAIN Diagnosis Discharge Diagnosis (1) Intractable low back pain: Status: Acute Code(s): M54.59 - Other low back pain Plan Patient is a 77-year-old gentleman admitted with intractable back pain 1. Acute on chronic back pain ? Imaging studies obtained on admission did show New age-indeterminate mild superior endplate compression fracture at L2 resulting in 10% height loss. Chronic compression fractures at T10 and T11, unchanged. Chronic mild anterior wedge compression fracture at L3 is unchanged. Lumbar spondylosis with varying degrees of foraminal narrowing and central canal stenosis. Patient has been admitted to regular nursing floor for symptom management 2. Physical deconditioning secondary to above - Requested for PT OT eval and social media campaign manager to assist with discharge planning ? 3. Alcoholic cirrhosis of the liver ? Patient is on rifaximin, nadolol and lactulose 4. Recurrent ascites ? Secondary to alcoholic liver cirrhosis. Patient undergoes scheduled ultrasound-guided paracentesis as outpatient 5. Thrombocytopenia ? Secondary to chronic liver disease monitoring with daily CBC with differential 6. Anemia - Secondary to chronic disorder monitoring H&H and transfuse if patient becomes symptomatic or hemoglobin falls below 7 7. GERD ? On PPI 8. BPH with lower urinary obstructive symptoms - Patient treated with tamsulosin 9. Hypothyroidism - Patient is on levothyroxine home dose continued 10. DVT prophylaxis ? Discontinued patient heparin given his low platelet counts Time spent in the patient's overall evaluation,decision-making process, review of diagnostic data, adjustment of management, discussion with other providers, nursing nursing and ancillary staff involved in patient's care documentation, 35 Medications at Discharge Home Medications tamsulosin 0.4 mg capsule 0.8 mg PO QHS prostate 06/26/15 carbidopa 25 mg-levodopa 100 mg tablet 2 tab PO TIDAC parkinsons 09/11/15 empagliflozin 10 mg tablet (Jardiance) 10 mg PO DAILY diabetes 01/09/18 levothyroxine 125 mcg tablet (Levoxyl) 125 mcg PO DAILY THYROID 03/06/22 ropinirole 2 mg tablet 2 mg PO QHS RESTLESS LEGS 03/06/22 trazodone 50 mg tablet 30 mg PO DAILY SLEEP 03/06/22 acetaminophen 325 mg tablet (Tylenol) 650 mg (2 x 325 mg) PO Q6H PRN PRN Pain 1- 10 Or Fever >100.7 #0 tabs 03/13/22 insulin lispro 100 unit/mL subcutaneous pen (Humalog KwikPen (U-100) Insulin) See Protocol subcut ACHS #0 mL 03/13/22 sucralfate 1 gram tablet 1 g PO 1HR_ACHS #0 tabs 03/13/22 furosemide 40 mg tablet 40 mg PO BID diuretic #30 tabs 02/21/23 lactulose 20 gram/30 mL oral solution 20 g (30 mL) PO BID #3,000 mL 02/21/23 nadolol 20 mg tablet 10 mg (1/2 x 20 mg) PO DAILY 1 month #30 tabs 02/21/23 pantoprazole 40 mg tablet,delayed release 40 mg PO DAILY #30 tabs 02/21/23 rifaximin 550 mg tablet (Xifaxan) 550 mg PO BID 1 month #60 tabs 02/21/23 spironolactone 50 mg tablet 50 mg PO DAILY #30 tabs 02/21/23 gabapentin 100 mg capsule 100 mg PO TID 30 days #90 caps 06/03/23 oxycodone 5 mg capsule 5 mg PO Q6H PRN pain 3 days #12 caps 06/03/23 Physical Exam Narrative GENERAL: cooperative HEENT: Atraumatic; normocephalic EYES; Anicteric, Normal Conjunctiva NECK; supple, normal thyroid, RESPIRATORY: Diminished to auscultation CARDIOVASCULAR: Regular S1 S2, GI: soft, normoactive bowel sounds, distended abdomen : No Renal angle tenderness; EXTREMITIES: No edema, no clubbing, MUSCULOSKELETAL: no muscle wasting NEURO: Awake; no lateralizing signs. SKIN: No Rash PSYCH; Flat affect Weight / BMI Weight Weight: 77 kg Body Mass Index (BMI) 28.2 ABG / Lab / Microbiology Data 06/08/23 05:30 06/08/23 05:30 Laboratory: Laboratory Results - last 24 hr 06/07/23 07:47: Differential Comment SCANNED, Platelet Estimate MKD 06/07/23 21:15: POC Glucose 121 H 06/08/23 05:30: WBC 3.9 L, RBC 2.69 L, Hgb 9.0 L, Hct 28.0 L, MCV 104.1 H, MCH 33.5 H, MCHC 32.1, RDW Std Deviation 54.0 H, RDW Coeff of Jean Claude 14.5, Plt Count 97 L, MPV 9.1, Immature Gran % (Auto) 0.300, Neut % (Auto) 57.8, Lymph % (Auto) 25.3, [place] % (Auto) 10.5 H, Eos % (Auto) 5.6 H, Baso % (Auto) 0.5, Absolute Neuts (auto) 2.3, Absolute Lymphs (auto) 0.99, Nucleated RBC % 0, Sodium 140, Potassium 4.5, Chloride 108 H, Carbon Dioxide 30.0, Anion Gap 2 L, BUN 32 H, Creatinine 1.35 H, Estim Creat Clear Calc 42.49, Est GFR (MDRD) Af Amer 65, Est GFR (MDRD) Non-Af 54 L, BUN/Creatinine Ratio 23.7 H, Glucose 138 H, Calcium 7.6 L, Phosphorus 4.0, Magnesium 2.0, Total Bilirubin 1.20 H, Direct Bilirubin 0.46 H, AST 24, ALT 19, Alkaline Phosphatase 117, Total Protein 5.2 L, Albumin 2.2 L, Globulin 3.0 06/08/23 06:29: POC Glucose 142 H Microbiology: Microbiology 06/06/23 23:40 Urine, Clean Catch Urine Culture - Final Mixed Gram Positive Organisms D/C Instructions Discharge Diet: No restrictions Discharge Activity: Return to Normal Activity Call your doctor if you observe: Fever of 101 or Higher, Shortness of breath, F ainting spells and Chest pain Meaningful Use Info Meaningful Use Meaningful Use Diagnoses (Choose all that apply): None applicable Ischemic Stroke Statin Dosing Therapy Reference: STATIN DOSE THERAPY REFERENCE: * Patients > 75 years receive moderate or high dose statin therapy. * Patients 75 years or YOUNGER should receive HIGH intensity statin dose unless contraindicated. You will be required to document reason for non-treatment if statin daily dose does not meet guidelines. HIGH DOSE STATIN THERAPY DAILY Atorvastatin > than or = to 40 mg Rosuvastatin > than or = to 20 mg Amlodipine + Atorvastatin > than or = to 2.5/40 mg Ezetimibe + Simvastatin 10/80 mg Simvastatin 80mg Discharge Plan Admission Admit Date/Time: 06/07/23 00:59 Attending Provider: Rohith Vann Primary Care Provider: Roger Bright Chi Consulting Providers: Misael Burleson Discharge Orders/Prescriptions Prescriptions: Continued furosemide 40 mg tablet 40 mg PO BID Qty: 30 2RF spironolactone 50 mg tablet 50 mg PO DAILY Qty: 30 2RF lactulose 20 gram/30 mL solution 20 g PO BID Qty: 3000 2RF Rx Instructions: Titrate to goal of 2-3 soft bowel movements per day Xifaxan 550 mg tablet 550 mg PO BID 30 Days Qty: 60 2RF pantoprazole 40 mg tablet,delayed release (DR/EC) 40 mg PO DAILY Qty: 30 2RF nadolol 20 mg tablet 10 mg PO DAILY 30 Days Qty: 30 2RF Rx Instructions: Hold for heart less than 50 or systolic blood pressure less than 90 mmHg. tamsulosin 0.4 MG capsule 0.8 mg PO QHS carbidopa-levodopa 1 TABLET tablet 2 tab PO TIDAC Jardiance 10 MG tablet 10 mg PO DAILY trazodone 50 mg tablet 30 mg PO DAILY ropinirole 2 mg tablet 2 mg PO QHS levothyroxine [Levoxyl] 125 mcg tablet 125 mcg PO DAILY acetaminophen [Tylenol] 325 mg Tablet 650 mg PO Q6H PRN PRN (Reason: Pain 1-10 Or Fever >100.7) Qty: 0 0RF sucralfate 1 gram Tablet 1 g PO 1HR_ACHS Qty: 0 0RF insulin lispro [Humalog KwikPen Insulin] 100 unit/mL Insulin Pen See Protocol subcut ACHS Qty: 0 0RF Protocol: 1. Sliding Scale Insulin Low Dosing Condition: 150-224 mg/dl = 1 unit Condition: 225-299 mg/dl = 2 units Condition: 300-374 mg/dl = 3 units Condition: 375-499 mg/dl = 4 units Condition: Greater than 449 call physician Protocol Text: - Use for Total Daily Dose of Insulin 15-27 units - Thin, elderly, renal patients LOW DOSING ALGORITHM oxycodone 5 mg capsule 5 mg PO Q6H PRN (Reason: pain) 3 Days Qty: 12 0RF gabapentin 100 mg capsule 100 mg PO TID 30 Days Qty: 90 1RF Referrals / Follow Up: Roger Bright Chi, MD [Primary Care Provider] - Within 2 Weeks Disposition Disposition (needs filled in before D/C Order can be placed): Home Health Service Charges/Coding Visit Charges Inpatient E&M: 09115 Disch Hosp >30min
[2023-06-08 11:47] VITALS: BP 128/93; PULSE 96; RESP 16; TEMP 36.4; O2SAT 98
== END 2023-06-08 09:58 | disposition home or self-care (01) ==
LOC: ED 21:15 → PCU 06-07 01:39
PROVIDERS: Admitting Provider Family Medicine; Emergency Provider Emergency Medicine; PCP Family Medicine Geriatric Medicine; Referring Provider Family Medicine; Visit Provider Internal Medicine
DX: M54.50 Low back pain, unspecified (principal); G20.A1 Parkinson's disease without dyskinesia, without mention of fluctuations; M48.56XA Collapsed vertebra, not elsewhere classified, lumbar region, initial encounter for fracture; K70.31 Alcoholic cirrhosis of liver with ascites; J44.9 Chronic obstructive pulmonary disease, unspecified; E11.9 Type 2 diabetes mellitus without complications; Z79.4 Long term (current) use of insulin; E78.5 Hyperlipidemia, unspecified; R62.7 Adult failure to thrive; R53.81 Other malaise; Z87.891 Personal history of nicotine dependence; I10 Essential (primary) hypertension; N40.1 Benign prostatic hyperplasia with lower urinary tract symptoms; N13.8 Other obstructive and reflux uropathy; Z79.899 Other long term (current) drug therapy; D63.8 Anemia in other chronic diseases classified elsewhere; D69.59 Other secondary thrombocytopenia; K21.9 Gastro-esophageal reflux disease without esophagitis; E03.9 Hypothyroidism, unspecified; Z79.890 Hormone replacement therapy
CPT/HCPCS: 36415; 71045; 80048; 80053; 80076; 81001; 82962; 83735; 84100; 84443; 85025; 87086; 87088; 96360; 96372; 97162; 97166; 99221; 99283; 99406; J7040; A4216; G0378

== ENCOUNTER → 2023-06-13 | Outpatient (CLI) | payer MEDICARE, OTHER, SELFPAY ==
[2023-06-13 09:47] VITALS: BP 128/61; PULSE 53; RESP 14; TEMP 36.5; O2SAT 98
[2023-06-13] MEDS: Lidocaine 2% (20 ml mdv) 20 ML Vial INFILT (09:50)
[2023-06-13 10:00] VITALS: BP 121/54; PULSE 47; RESP 16; O2SAT 99
[2023-06-13 10:15] VITALS: BP 129/64; PULSE 51; RESP 14; O2SAT 98
--- NOTE | 2023-06-13 11:14 | PRO.PCM_ITS ---
Procedure Report Date of Procedure: 06/13/23 Assessment & Plan Assessment/Plan (1) Ascites: QUALIFIERS: Ascites type: other type Qualified Code(s): R18.8 - Other ascites PLAN: PROCEDURE: Ultrasound guided paracentesis ORDERING PROVIDER: Dr. Bright INDICATION: Male, 77 years old. Ascites. PROVIDER: IVANA Hidalgo TECHNIQUE: The risks, benefits, and alternatives to the procedure were explained to the patient. The specific risks of bleeding, infection, and damage to bowel were detailed and accepted. Witnessed informed consent was obtained. The abdomen was ultrasonographically surveyed. An appropriate pocket of fluid was identified in the right upper quadrant. The skin was prepped with chlorhexidine and sterile field established. 2% lidocaine was used for local anesthetic. Using ultrasound guidance, the peritoneal cavity was accessed with a 5-[place] paracentesis needle/catheter system. The trocar was removed. A total of 3800 ml of clear yellow colored fluid was removed from the peritoneal cavity. The catheter was removed and a sterile dressing was applied. The procedure was well tolerated. IMPRESSION: Successful ultrasound-guided paracentesis with right upper quadrant access site. Procedures Radiology Radiology US Procedures: 12356 Paracentesis
== END | disposition home or self-care (01) ==
PROVIDERS: PCP Family Medicine Geriatric Medicine; Referring Provider Family Medicine Geriatric Medicine; Visit Provider Family Medicine Geriatric Medicine
DX: K74.60 Unspecified cirrhosis of liver (principal)
CPT/HCPCS: 49083

== ENCOUNTER → 2023-06-17 | Outpatient (CLI) | payer MEDICARE, OTHER, SELFPAY ==
[2023-06-17 16:25] LABS: Absolute Lymphocyte Count 0.69 X10^3/uL (0.83-4.51); Absolute Neutrophil Count 1.8 X10^3/uL (2.0-7.7); Basophil# 0.02 X10^3/uL; Basophil% 0.7 % (0-1); Eosinophil# 0.18 X10^3/uL; Eosinophils% 5.9 % (0-5); Hematocrit 28.7 % (40-54); Hemoglobin 8.9 g/dL (13.0-16.5); Lymphocyte # 0.69 X10^3/ul (0.83-4.51); Lymphocyte % 22.5 % (19-41); Mean Corpuscular Hgb 32.1 pg (27.0-32.0); Mean Corpuscular Volume 103.6 fL (80-94); Mean Platelet Vol. 9.7 fl (6.2-12.0); Monocyte# 0.34 X10^3/uL; Monocyte% 11.1 % (0-10); NRBC Flagged by Analyzer 0 % (0-5); Neutrophil # 1.83 X10^3/uL (2.7-7.7); Neutrophil % 59.5 % (47-70); POSITIVE COUNT YES; Platelet Count 91 K/mm3 (150-450); RBC Distribution Width CV 14.6 % (11.6-14.6); RBC Distribution Width SD 55.5 fl (35.1-43.9); Red Blood Count 2.77 M/mm3 (4.6-6.2); White Blood Count 3.1 K/mm3 (4.4-11.0)
[2023-06-17 16:39] LABS: Vitamin D,25 Hydroxy 21.3 ng/mL
[2023-06-17 16:44] LABS: ALB/GLOB Ratio 0.7 RATIO (0.9-2.4); AST(SGOT) 35 U/L (15-37); Alanine Aminotransfer ALT/SGPT 24 U/L (16-61); Albumin, Serum 2.5 g/dL (3.2-5.0); Alkaline Phosphatase 142 U/L (45-117); Anion Gap 3 (5-15); BUN 30 mg/dL (7-18); BUN/Creat Ratio 27.8 RATIO (10-20); Calcium,Total 8.1 mg/dL (8.5-10.1); Chloride 112 mmol/L (98-107); Creatinine, Serum 1.08 mg/dL (0.70-1.30); EST Glomerular Filtration Rate 70 mL/min (>60); Est Glom Filt Rate - Afr Amer 85 mL/min (>60); Globulin 3.6 g/dL (2.2-4.2); Glucose 121 mg/dL (74-106); Potassium 4.1 mmol/L (3.5-5.1); Protein, Total 6.1 g/dL (6.4-8.2); Sodium Level 143 mmol/L (136-145); Thyroid Stim Hormone (TSH) 5.34 uIU/mL (0.358-3.74)
[2023-06-17 16:51] LABS: Differential Indicated SCAN CRITERIA MET
[2023-06-17 16:53] LABS: Anisocytosis 1+; Macrocytosis 1+; Ovalocyte RARE; Platelet Estimate SLT DEC (ADEQ); Red Cell Morphology N CHROM NORMAL (NORM C&C)
== END | disposition home or self-care (01) ==
LOC: POLAB3 15:26
PROVIDERS: PCP Family Medicine Geriatric Medicine; Visit Provider Family Medicine Geriatric Medicine
DX: E11.65 Type 2 diabetes mellitus with hyperglycemia (principal); I10 Essential (primary) hypertension; E55.9 Vitamin D deficiency, unspecified
CPT/HCPCS: 36415; 80053; 82306; 84443; 85025

== ENCOUNTER → 2023-06-23 | Outpatient (CLI) | payer MEDICARE, OTHER, SELFPAY ==
[2023-06-23] MEDS: Lidocaine 2% (20 ml mdv) 20 ML Vial INFILT (10:06)
--- NOTE | 2023-06-23 10:52 | PCM.OP.PRO ---
Procedure Report Date of Procedure: 06/23/23 Assessment & Plan Assessment/Plan (1) Ascites: QUALIFIERS: Ascites type: other type Qualified Code(s): R18.8 - Other ascites PLAN: PROCEDURE: Ultrasound guided paracentesis ORDERING PROVIDER: Dr. Bright INDICATION: Male, 77 years old. Ascites. PROVIDER: IVANA Hidalgo TECHNIQUE: The risks, benefits, and alternatives to the procedure were explained to the patient. The specific risks of bleeding, infection, and damage to bowel were detailed and accepted. Witnessed informed consent was obtained. The abdomen was ultrasonographically surveyed. An appropriate pocket of fluid was identified in the left lower quadrant. The skin was prepped with chlorhexidine and sterile field established. 2% lidocaine was used for local anesthetic. Using ultrasound guidance, the peritoneal cavity was accessed with a 5-Citizen Of [place] paracentesis needle/catheter system. The trocar was removed. A total of 4650 ml of clear yellow colored fluid was removed from the peritoneal cavity. The catheter was removed and a sterile dressing was applied. The procedure was well tolerated. IMPRESSION: Successful ultrasound-guided paracentesis with left lower quadrant access site. Procedures Radiology Radiology US Procedures: [id number] Paracentesis
[2023-06-23 10:59] VITALS: BP 125/53; PULSE 68; RESP 18; TEMP 36.9; O2SAT 96
[2023-06-23 11:00] VITALS: BP 125/57; BP 135/57; PULSE 69; PULSE 76; RESP 18; O2SAT 92; O2SAT 97
== END | disposition home or self-care (01) ==
PROVIDERS: PCP Family Medicine Geriatric Medicine; Referring Provider Family Medicine Geriatric Medicine; Visit Provider Family Medicine Geriatric Medicine
DX: K74.60 Unspecified cirrhosis of liver (principal)
CPT/HCPCS: 49083; A4216

== ENCOUNTER → 2023-07-03 | Outpatient (CLI) | payer MEDICARE, OTHER, SELFPAY ==
[2023-07-03 09:30] VITALS: BP 173/75; PULSE 87; RESP 16; TEMP 36.5; O2SAT 96
[2023-07-03] MEDS: Lidocaine 2% (20 ml mdv) 20 ML Vial INFILT (09:35)
--- NOTE | 2023-07-03 09:36 | EKG12_ITS ---
Test Reason : A-FIB Blood Pressure : / mmHG Vent. Rate : 079 BPM Atrial Rate : 079 BPM P-R Int : 142 ms QRS Dur : 078 ms QT Int : 358 ms P-R-T Axes : 025 002 041 degrees QTc Int : 410 ms Sinus rhythm with marked sinus arrhythmia Septal infarct , age undetermined Abnormal ECG When compared with ECG of 04-OCT-2022 21:30, Premature supraventricular complexes are no longer Present Nonspecific T wave abnormality, improved in Anterolateral leads Confirmed by Felix Hopkins ([id number]), avid editor CHARLOTTE SOSA ([id number]) on 07/08/2023 8:04:43 AM Referred By: Roger Bright Confirmed By:Felix Hopkins
[2023-07-03 09:45] VITALS: BP 156/75; PULSE 60; RESP 16; O2SAT 96
[2023-07-03 09:58] VITALS: BP 164/89; PULSE 79; RESP 16; O2SAT 95
--- NOTE | 2023-07-03 12:43 | PRO.PCM_ITS ---
Procedure Report Date of Procedure: 07/03/23 Assessment & Plan Assessment/Plan (1) Ascites: QUALIFIERS: Ascites type: other type Qualified Code(s): R18.8 - Other ascites PLAN: PROCEDURE: Ultrasound guided paracentesis ORDERING PROVIDER: Dr. Hdez INDICATION: Male, 77 years old. Ascites. PROVIDER: IVANA Hidalgo TECHNIQUE: The risks, benefits, and alternatives to the procedure were explained to the patient. The specific risks of bleeding, infection, and damage to bowel were detailed and accepted. Witnessed informed consent was obtained. The abdomen was ultrasonographically surveyed. An appropriate pocket of fluid was identified in the right lower quadrant. The skin was prepped with chlorhexidine and sterile field established. 2% lidocaine was used for local anesthetic. Using ultrasound guidance, the peritoneal cavity was accessed with a 5-[place] paracentesis needle/catheter system. The trocar was removed. A total of 3500 ml of clear yellow colored fluid was removed from the peritoneal cavity. The catheter was removed and a sterile dressing was applied. The procedure was well tolerated. During the course of the procedure, it was noted that the patient had a very irregular heartbeat, which is a change from baseline. An EKG was obtained. The patient was noted to be in sinus arrhythmia with notable P waves and without other signs of ischemia. This was also compared to a previous EKG. IMPRESSION: Successful ultrasound-guided paracentesis with right lower quadrant access site. Procedures Radiology Radiology US Procedures: [id number] Paracentesis
== END | disposition home or self-care (01) ==
PROVIDERS: PCP Family Medicine Geriatric Medicine; Referring Provider Family Medicine Geriatric Medicine; Visit Provider Family Medicine Geriatric Medicine
DX: K74.60 Unspecified cirrhosis of liver (principal); R18.8 Other ascites; I49.9 Cardiac arrhythmia, unspecified
CPT/HCPCS: 49083; 93005

== ENCOUNTER 2023-07-08 12:31 | Day surgery (SDC) | payer MEDICARE, OTHER, SELFPAY ==
[2023-07-08] MEDS: Lactated Ringers 1,000 ML 15 ML IV (12:57)
[2023-07-08 12:59] VITALS: BP 141/71; PULSE 88; RESP 16; TEMP 37.2; O2SAT 96; BMI 27.8
--- NOTE | 2023-07-08 13:43 | HP.PCM_ITS ---
History and Physical Date of Admission: 07/08/23 RICHARD PARRY, is a 77 M who presents to the office today for follow up. Follow up. [facility] 03.06.22- 03.13.22, presented with progressive SOB and confusion. Dx with new onset pleural effuision and ascites secondary to cirrhosis of the liver. GI was consulted. Pt underwent large-volume paracentesis and EGD which showed benign esophagal stenosis, multiple bleeding duodenal ulcer and multiple oosing jejunal ulcers. Pt has multiple comorbitisied iunflusing DM, HTN, CKD, COPD and CHF. Pt has since been seen in the ER for ascites and has had multuple paracentesis since hospital visit. MELD Child-Braden . 20 C 8. 11 B OV 1.5.24- Patient lives with his daughter. Patient gets weekly paracentesis. He states he quit alcohol 4 years ago. He is also former smoker. Patient walks very slowly with in-home, disequilibrium and risk for fall. He is not taking any medication after discharge from the hospital. Patient follows with Dr. Bright. CT and/pel w/wo contrast triple phase 03.04.23- Shrunken cirrhotic liver without evidence of a mass or ductal dilation. Large ammount of abdominal and pelvic ascites. Contracted gallbladder. Portal vein hypertension with multiple venous varicies. US abd limited .08.10- Liver measures 12.1cm, Heterogenous echotexture of the liver with nodular contour suggestive of cirrhosis, ascitic fluid seen in RUQ, Adenomatous of the wall of gallbladder. OV 5.8.24- Patient stable since last visit. Continues to get paracentesis every 11 days. States he has 1-2 normal BM a day. Does not take the Lactulose as prescribed because it gives him diarrhea. Also does not know if hes taking the other medications we prescribed. He states he needs to be more organized. No abdominal pain. Swelling in legs. Notes dizziness and some confusion. ROS Const Constitutional: Positive for fatigue, frequent falls and weakness; No fever(s) or weight change ENT ENT: Positive for difficulty swallowing Gastro GI: Positive for diarrhea and difficulty swallowing; No abdominal pain, belching, bloating, change in bowel habits, change in stool character, coffee ground emesis, constipation, cramping, heartburn, feeling full early, excessive flatus, incontinent of stools, Vomiting blood/hematemesis, Blood in stool, loose stools, Black,tarry stools, nausea/dyspepsia, pain with swallowing, vomiting or other Musc Musculoskeletal: Positive for back pain and restless legs; No joint pain Skin Skin: Positive for dry skin and itchy eyes; No yellowing of the eye Neuro Neurology: Positive for weakness, frequent falls and restless legs Psych Psychiatric: Positive for anxiety, Positive for depression, Positive for Compu lsive Behavior and Positive for inattentiveness Endo Endocrine: Positive for fatigue; No weight change Aller/Imm Allergy/Immunologic: Positive for itchy eyes Erik/Lymp Hematologic/Lymphatic: Positive for easy bruising; No easy bleeding Exam Const General: cooperative, no acute distress and well developed Nutritional Appearance: average body habitus Orientation: alert, awake and oriented x3 Other: Malnourished. Lean body mass is less. HENMT Head: normocephalic and atraumatic Nose: external nose normal Face and sinus: normal facial exam Mouth: moist mucous membranes Eyes Pupils: PERRL EOM: EOM intact bilaterally Neck Neck: normal visual inspection, no meningeal signs and trachea midline Carotids: no bruits Chest Chest palpation & inspection: normal inspection of the chest Resp Effort & Inspection: normal respiratory effort and symmetric chest movement Auscultation: Bilateral: Clear to Auscultation Cardio Palpation: normal PMI Rate: regular rate Rhythm: regular rhythm Heart Sounds: S1 normal and S2 normal GI Auscultation: normal bowel sounds Percussion: normal to percussion Palpation: soft and no guarding Other: Spleen palpable. Liver not enlarged. paracentesis every 10 days. General: bimanual renal exam normal bilaterally, bladder normal to inspection and bladder normal to palpation Musc Musculoskeletal: No joint tenderness, joint redness, joint warmth or decreased range of motion Thoracic/Lumbar Spine: thor and lumb spine abnorm to inspection Skin General: rashes and/or lesions noted, turgor normal and no erythema Wounds: wound noted Neuro General: patient alert, patient awake, patient oriented x3 and no focal motor deficits Speech: speech normal Motor: muscle tone normal throughout Other: Slow in conversation. Possible early cognitive changes/early dementia or enceph alopathy. Asterixis absent. Extrem General: normal exam except as noted Other: 2+ bilateral ankle pitting edema. Psych Appearance: grossly normal Mood: congruent mood Affect: indifferent and flat Attitude: cooperative Assessment and Plan Assessment and Plan (1) Cirrhosis: Status: Chronic Plan: Patient is decompensated cirrhosis, unclear etiology but most likely due to alcohol with ascites, possible encephalopathy and thrombocytopenia. Last EGD in February 2022 showed esophageal benign stenosis multiple bleeding duodenal ulcer and multiple oozing duodenal ulcers. Patient denies any active bleed. Did not find varices during EGD. Gets paracentesis every 10 days last 1 was in June 23, 2023. 4.6 L was drained. Plan Patient not compliant with his medication and states he has misplaced his medications. Prescription for diuretics furosemide spironolactone nadolol pantoprazole lactulose rifaximin ordered. Advised to weekly paracentesis. Needs to schedule EGD. Patient accompanied with his daughter and agitated NSAIA reinforced. Last CT abdomen without contrast February 24, 2022 shows cirrhotic liver with ascites. Last liver ultrasound shows ascites fluid, cirrhotic liver and adenomyomatosis of wall of gallbladder. GB wall 4 mm. No gallstones or pericholecystic fluid. MELD score is 11. CPT score B, 10 based on the all 3 MELD scores of September 2022. Labs ordered prior to next visit. All medications refilled. CT abdomen/pelvis, HCC protocol ordered to rule out HCC. Follow-up in 3 months (2) Ascites: Status: Chronic Qualifiers: Ascites type: other type Qualified Code(s): R18.8 - Other ascites Plan: Schedule every 2 weeks. Orders: Orders Vitamin D,25 Hydroxy 3 Months K74.60 - Unspecified cirrhosis of liver, R18.8 - Other ascites CBC W/Diff, Automated 3 Months K74.60 - Unspecified cirrhosis of liver, R18.8 - Other ascites Comprehensive Metabolic Profil 3 Months K74.60 - Unspecified cirrhosis of liver, R18.8 - Other ascites Prothrombin Time w/INR 3 Months K74.60 - Unspecified cirrhosis of liver, R18.8 - Other ascites CRP 3 Months K74.60 - Unspecified cirrhosis of liver, R18.8 - Other ascites AFP, Tumor Marker 3 Months K74.60 - Unspecified cirrhosis of liver, R18.8 - Other ascites CT Abd/Pelvis W/WO Contrast 3 Months K74.60 - Unspecified cirrhosis of liver, R18.8 - Other ascites Thyroid Stim Hormone (TSH) 3 Months R18.8 - Other ascites, R79.89 - Other specified abnormal findings of blood chemistry T4 Free Direct 3 Months R63.4 - Abnormal weight loss, R79.89 - Other specified abnormal findings of blood chemistry Medications: Changed From furosemide 40 mg PO BID 30 tabs 2RF diuretic To furosemide 40 mg PO BID 1 month 60 tabs 3RF diuretic From lactulose Titrate to goal of 2-3 soft bowel movements per day 20 grams (30 mL) PO BID 3,000 mL 2RF To lactulose Titrate to goal of 2-3 soft bowel movements per day 20 grams (30 mL) PO BID 1 month 1,800 mL 5RF From nadolol Hold for heart less than 50 or systolic blood pressure less than 90 mmHg. 10 mg (1/2 x 20 mg) PO DAILY 1 month 30 tabs 2RF To nadolol Hold for heart less than 50 or systolic blood pressure less than 90 mmHg. 20 mg PO DAILY 1 month 30 tabs 5RF From spironolactone Hold for serum potassium more than 5.0. 50 mg PO DAILY 30 tabs 2RF diuretic To spironolactone 50 mg PO DAILY 1 month 30 tabs 4RF diuretic Refilled rifaximin (Xifaxan) 550 mg PO BID 1 month 60 tabs 5RF stools pantoprazole 40 mg PO DAILY 30 tabs 3RF reflux Discontinued sucralfate Discontinued Reason: Discontinued by PCP/other physicians 1 g PO 1HR_ACHS 0 tabs 0RF stomache I have examined the patient and the H&P has been reviewed. There are no clinical changes since date of exam.
[2023-07-08 13:45] LABS: Bedside Glucose 91 mg/dL (74-106)
[2023-07-08 14:01] VITALS: BP 115/65; BP 141/71; PULSE 90; RESP 16; TEMP 36.9; O2SAT 96
--- NOTE | 2023-07-08 14:03 | OP.EGD_ITS ---
Patient Name: Felix Vargas Procedure Date: 07/08/2023 1:38 PM Date of : 1945 Age: 77 Procedure: Upper GI endoscopy Indications: Esophageal varices, Follow-up of esophageal varices Providers: Waylon Hdez DO Referring MD: Roger Bright MD Medicines: Monitored Anesthesia Care Patient Profile: This is a 77 year old male. Refer to note in patient chart for documentation of history and physical. Patient has symptoms. Complications: No immediate complications. Procedure: Pre-Anesthesia Assessment: - Prior to the procedure, a History and Physical was performed, and patient medications and allergies were reviewed. The patient is competent. The risks and benefits of the procedure and the sedation options and risks were discussed with the patient. All questions were answered and informed consent was obtained. Patient identification and proposed procedure were verified by the physician in the pre-procedure area. Mental Status Examination: normal. Airway Examination: normal oropharyngeal airway and neck mobility. Respiratory Examination: clear to auscultation. CV Examination: normal. Prophylactic Antibiotics: The patient does not require prophylactic antibiotics. Prior Anticoagulants: The patient has taken no anticoagulant or antiplatelet agents. ASA Grade Assessment: IV - A patient with severe systemic disease that is a constant threat to life. After reviewing the risks and benefits, the patient was deemed in satisfactory condition to undergo the procedure. The anesthesia plan was to use monitored anesthesia care (MAC). Immediately prior to administration of medications, the patient was re-assessed for adequacy to receive sedatives. The heart rate, respiratory rate, oxygen saturations, blood pressure, adequacy of pulmonary ventilation, and response to care were monitored throughout the procedure. The physical status of the patient was re-assessed after the procedure. After obtaining informed consent, the endoscope was passed under direct vision. Throughout the procedure, the patient's blood pressure, pulse, and oxygen saturations were monitored continuously. The Endoscope was introduced through the mouth, and advanced to the second part of duodenum. The upper GI endoscopy was accomplished without difficulty. Scope In: 1:51:06 PM Scope Out: 1:55:53 PM Total Procedure Duration Time 0 hours 4 minutes 47 seconds Findings: The examined esophagus was moderately tortuous. Abnormal motility was noted in the lower third of the esophagus. The cricopharyngeus was normal. There is spasticity of the esophageal body. The distal esophagus/lower esophageal sphincter is spastic, but gives up passage to the endoscope. Secondary peristaltic waves are noted. Severe portal hypertensive gastropathy was found in the stomach. A few 3 mm angiodysplastic lesions with bleeding were found in the gastric antrum. Coagulation for hemostasis using heater probe was successful. Estimated blood loss was minimal. Few non-bleeding superficial duodenal ulcers with no stigmata of bleeding were found in the duodenal bulb, in the first portion of the duodenum and in the second portion of the duodenum. The largest lesion was 2 mm in largest dimension. Coagulation for bleeding prevention using heater probe was successful. Estimated blood loss was minimal. Impression: - Tortuous esophagus. - Abnormal esophageal motility, suspicious for achalasia. - Portal hypertensive gastropathy. - A few bleeding angiodysplastic lesions in the stomach. Treated with a heater probe. - Non-bleeding duodenal ulcers with no stigmata of bleeding. Treated with a heater probe. - No specimens collected. Recommendation: - Discharge patient to home. - Resume previous diet. - Continue present medications. Procedure Code(s): --- Professional --- 71565, Esophagogastroduodenoscopy, flexible, transoral; with control of bleeding, any method CPT copyright 2021 [employer]. All rights reserved. The codes documented in this report are preliminary and upon campaign management senior manager review may be revised to meet current compliance requirements. Waylon Hdez DO 07/08/2023 2:02:57 PM This report has been signed electronically. Number of Addenda: 0 Note Initiated On: 07/08/2023 1:38 PM
--- NOTE | 2023-07-08 14:03 | OP.CCLET_ITS ---
07/08/2023 Roger Bright MD [address] [place] [address] Re : Upper GI endoscopy procedure for Felix Vargas Dear Dr. Bright This procedure was performed on Saturday, July 08, 2023. My impressions and recommendations are as follows: Impressions : - Tortuous esophagus. - Abnormal esophageal motility, suspicious for achalasia. - Portal hypertensive gastropathy. - A few bleeding angiodysplastic lesions in the stomach. Treated with a heater probe. - Non-bleeding duodenal ulcers with no stigmata of bleeding. Treated with a heater probe. - No specimens collected. Recommendations : - Discharge patient to home. - Resume previous diet. - Continue present medications. My findings are described in the full procedure note, which is enclosed. If I can be of further assistance, please feel free to contact me at . Sincerely, Waylon Friend, 07/08/2023 2:02:57 PM This report has been signed electronically.
[2023-07-08 14:05] VITALS: BP 136/66; BP 141/71; PULSE 88; RESP 16; O2SAT 96
[2023-07-08 14:10] VITALS: BP 127/67; BP 141/71; PULSE 90; RESP 16; O2SAT 96
[2023-07-08 14:14] VITALS: BP 128/76; BP 141/71; PULSE 88; RESP 16; TEMP 36.8; O2SAT 97
[2023-07-08 14:36] VITALS: BP 141/71
== END 2023-07-08 14:37 | disposition home or self-care (01) ==
LOC: EN 12:34 → AC 12:34
PROVIDERS: PCP Family Medicine Geriatric Medicine; Referring Provider Family Medicine Geriatric Medicine; Visit Provider Internal Medicine Gastroenterology
PROC: 0DJ08ZZ Inspection of Upper Intestinal Tract, Via Natural or Artificial Opening Endoscopic (ICD-10-PCS; CPT 43235; principal; 2023-07-08 13:25)
DX: K31.89 Other diseases of stomach and duodenum (principal); I85.00 Esophageal varices without bleeding; K76.6 Portal hypertension; G20.C Parkinsonism, unspecified; K74.60 Unspecified cirrhosis of liver; I11.0 Hypertensive heart disease with heart failure; I50.9 Heart failure, unspecified; J44.9 Chronic obstructive pulmonary disease, unspecified; Z79.4 Long term (current) use of insulin; E11.9 Type 2 diabetes mellitus without complications; K26.9 Duodenal ulcer, unspecified as acute or chronic, without hemorrhage or perforation; K21.9 Gastro-esophageal reflux disease without esophagitis; Z79.899 Other long term (current) drug therapy; Z87.891 Personal history of nicotine dependence
CPT/HCPCS: 43255; 82962; J7120; J2405

== ENCOUNTER → 2023-07-11 | Outpatient (CLI) | payer MEDICARE, OTHER, SELFPAY ==
[2023-07-11 09:44] VITALS: BP 123/63; PULSE 87; RESP 16; O2SAT 98
[2023-07-11] MEDS: Lidocaine 2% (20 ml mdv) 20 ML Vial INFILT (09:50)
[2023-07-11 09:59] VITALS: BP 124/58; PULSE 83; RESP 16; O2SAT 96
[2023-07-11 10:10] VITALS: BP 131/58; PULSE 83; RESP 16; O2SAT 98
--- NOTE | 2023-07-11 10:14 | PCM.OP.PRO ---
Procedure Report Date of Procedure: 07/11/23 Assessment & Plan Assessment/Plan (1) Ascites: QUALIFIERS: Ascites type: other type Qualified Code(s): R18.8 - Other ascites PLAN: PROCEDURE: Ultrasound guided paracentesis ORDERING PROVIDER: Dr. Bright INDICATION: Male, 77 years old. Abdominal ascites. PROVIDER: IVANA Hidalgo TECHNIQUE: The risks, benefits, and alternatives to the procedure were explained to the patient. The specific risks of bleeding, infection, and damage to bowel were detailed and accepted. Witnessed informed consent was obtained. The abdomen was ultrasonographically surveyed. An appropriate pocket of fluid was identified in the right lower quadrant. The skin was prepped with chlorhexidine and sterile field established. 2% lidocaine was used for local anesthetic. Using ultrasound guidance, the peritoneal cavity was accessed with a 5-Citizen Of [place] paracentesis needle/catheter system. The trocar was removed. A total of 4450 ml of clear yellow colored fluid was removed from the peritoneal cavity. The catheter was removed and a sterile dressing was applied. The procedure was well tolerated. IMPRESSION: Successful ultrasound-guided paracentesis with right lower quadrant access site. Procedures Radiology Radiology US Procedures: [id number] Paracentesis
== END | disposition home or self-care (01) ==
PROVIDERS: PCP Family Medicine Geriatric Medicine; Referring Provider Family Medicine Geriatric Medicine; Visit Provider Family Medicine Geriatric Medicine
DX: K74.60 Unspecified cirrhosis of liver (principal)
CPT/HCPCS: 49083

== ENCOUNTER → 2023-07-24 | Outpatient (CLI) | payer MEDICARE, OTHER, SELFPAY ==
[2023-07-24 09:42] VITALS: BP 137/69; PULSE 88; RESP 18; O2SAT 96
[2023-07-24] MEDS: Lidocaine 2% (20 ml mdv) 20 ML Vial INFILT (09:50)
[2023-07-24 09:57] VITALS: BP 150/74; PULSE 81; RESP 18; O2SAT 97
[2023-07-24 10:12] VITALS: BP 130/61; PULSE 85; RESP 18; O2SAT 97
--- NOTE | 2023-07-24 12:35 | PCM.OP.PRO ---
Procedure Report Date of Procedure: 07/24/23 Assessment & Plan Assessment/Plan (1) Ascites: QUALIFIERS: Ascites type: other type Qualified Code(s): R18.8 - Other ascites PLAN: PROCEDURE: Ultrasound guided paracentesis ORDERING PROVIDER: Dr. Bright INDICATION: Male, 78 years old. Ascites. PROVIDER: IVANA Hidalgo TECHNIQUE: The risks, benefits, and alternatives to the procedure were explained to the patient. The specific risks of bleeding, infection, and damage to bowel were detailed and accepted. Witnessed informed consent was obtained. The abdomen was ultrasonographically surveyed. An appropriate pocket of fluid was identified in the left upper quadrant. The skin was prepped with chlorhexidine and sterile field established. 2% lidocaine was used for local anesthetic. Using ultrasound guidance, the peritoneal cavity was accessed with a 5-[place] paracentesis needle/catheter system. The trocar was removed. A total of 4550 ml of clear yellow colored fluid was removed from the peritoneal cavity. The catheter was removed and a sterile dressing was applied. The procedure was well tolerated. IMPRESSION: Successful ultrasound-guided paracentesis with left upper quadrant access site. Procedures Radiology Radiology US Procedures: [id number] Paracentesis
== END | disposition home or self-care (01) ==
PROVIDERS: PCP Family Medicine Geriatric Medicine; Referring Provider Family Medicine Geriatric Medicine; Visit Provider Family Medicine Geriatric Medicine
DX: R18.8 Other ascites (principal)
CPT/HCPCS: 49083

== ENCOUNTER → 2023-08-07 | Outpatient (CLI) | payer MEDICARE, OTHER, SELFPAY ==
[2023-08-07] VITALS (7 sets, daily range): BP systolic 127–158; BP diastolic 51–77; PULSE 64–98; RESP 16; TEMP 36–37; O2SAT 96–100; BMI 29.1
[2023-08-07] MEDS: Lidocaine 2% (20 ml mdv) 20 ML Vial INFILT (09:50)
[2023-08-07] MEDS: Albumin Human 25% (100 mL) 25 GM/100 ML BAG IV (11:01)
--- NOTE | 2023-08-07 13:16 | PRO.PCM_ITS ---
Procedure Report Date of Procedure: 08/07/23 Assessment & Plan Assessment/Plan (1) Ascites: QUALIFIERS: Ascites type: other type Qualified Code(s): R18.8 - Other ascites PLAN: PROCEDURE: Ultrasound guided paracentesis ORDERING PROVIDER: Dr. Bright INDICATION: Male, 78 years old. Ascites. PROVIDER: IVANA Hidalgo TECHNIQUE: The risks, benefits, and alternatives to the procedure were explained to the patient. The specific risks of bleeding, infection, and damage to bowel were detailed and accepted. Witnessed informed consent was obtained. The abdomen was ultrasonographically surveyed. An appropriate pocket of fluid was identified in the left lower quadrant. The skin was prepped with chlorhexidine and sterile field established. 2% lidocaine was used for local anesthetic. Using ultrasound guidance, the peritoneal cavity was accessed with a 5-[place] paracentesis needle/catheter system. The trocar was removed. A total of 5200 ml of clear yellow colored fluid was removed from the peritoneal cavity. The catheter was removed and a sterile dressing was applied. The procedure was well tolerated. IMPRESSION: Successful ultrasound-guided paracentesis with left lower quadrant access site. Procedures Radiology Radiology US Procedures: [id number] Paracentesis
== END | disposition home or self-care (01) ==
LOC: US 09:31
PROVIDERS: PCP Family Medicine Geriatric Medicine; Referring Provider Family Medicine Geriatric Medicine; Visit Provider Family Medicine Geriatric Medicine
DX: K74.60 Unspecified cirrhosis of liver (principal); R18.8 Other ascites
CPT/HCPCS: 96365; 96366; 49083; P9047; A4216

== ENCOUNTER 2023-08-22 09:24 | Outpatient (CLI) | payer MEDICARE, OTHER, SELFPAY ==
[2023-08-22] MEDS: Lidocaine 2% (20 ml mdv) 20 ML Vial INFILT (09:47)
[2023-08-22] MEDS: 0.9% Saline Lock 10 ML Syringe IV (10:27)
[2023-08-22 10:29] VITALS: BP 133/62; PULSE 91; RESP 18; TEMP 36.7; O2SAT 96
--- NOTE | 2023-08-22 10:29 | PCM.OP.PRO ---
Procedure Report Date of Procedure: 08/22/23 Assessment & Plan Assessment/Plan (1) Ascites: QUALIFIERS: Ascites type: other type Qualified Code(s): R18.8 - Other ascites PLAN: PROCEDURE: Ultrasound guided paracentesis ORDERING PROVIDER: Dr. Bright INDICATION: Male, 78 years old. Ascites. PROVIDER: IVANA Hidalgo TECHNIQUE: The risks, benefits, and alternatives to the procedure were explained to the patient. The specific risks of bleeding, infection, and damage to bowel were detailed and accepted. Witnessed informed consent was obtained. The abdomen was ultrasonographically surveyed. An appropriate pocket of fluid was identified in the right lower quadrant. The skin was prepped with chlorhexidine and sterile field established. 2% lidocaine was used for local anesthetic. Using ultrasound guidance, the peritoneal cavity was accessed with a 5-[place] paracentesis needle/catheter system. The trocar was removed. A total of 7100 ml of clear yellow colored fluid was removed from the peritoneal cavity. The catheter was removed and a sterile dressing was applied. The procedure was well tolerated. IMPRESSION: Successful ultrasound-guided paracentesis with right lower quadrant access site. Procedures Radiology Radiology US Procedures: [id number] Paracentesis
[2023-08-22 10:30] VITALS: BP 132/70; PULSE 92; RESP 18; O2SAT 93
[2023-08-22 10:31] VITALS: BP 130/63; PULSE 81; RESP 18; O2SAT 93
[2023-08-22 10:38] VITALS: BP 119/66; PULSE 71; RESP 16; TEMP 36.3; O2SAT 95
[2023-08-22] MEDS: Albumin Human 25% (100 mL) 25 GM/100 ML BAG IV (10:42)
[2023-08-22] MEDS: Albumin Human 25% (50 mL) 12.5 GM/50 ML IV.SOLN IV (12:08)
[2023-08-22 13:17] VITALS: BP 118/63; PULSE 75; RESP 16; TEMP 36.4; O2SAT 96
== END 2023-08-22 23:59 | disposition home or self-care (01) ==
LOC: US 09:25
PROVIDERS: PCP Family Medicine Geriatric Medicine; Referring Provider Family Medicine Geriatric Medicine; Visit Provider Family Medicine Geriatric Medicine
DX: R18.8 Other ascites (principal); K74.60 Unspecified cirrhosis of liver
CPT/HCPCS: 96365; 96366 ×2; 49083; J7050; P9047; A4216

== ENCOUNTER 2023-09-01 14:30 | Outpatient (RCR) | payer MEDICARE, OTHER, SELFPAY ==
--- NOTE | 2023-06-17 13:58 | HP.PTEVAL ---
Patient's Visit Information Visit Information Visit Information: RICHARD PARRY is a 77 year old M referred to Physical Therapy by Dr. Rohith Vann MD with a diagnosis of Deconditioning. Date of Evaluation: 06/17/23 Physical Therapist: Luis Alfredo Le, PT, ATC Visit Plan Frequency: 2-3x /Week Duration: 4-6 Weeks Plan: B LE strengthening, balance and proprio ex's, core strengthening, gait training, nustep, and HEP Subjective Subjective: Pt reports he has noticed increased debility over the last month. Pt reports he fell over a sweeper handle at that time and has had LBP since. Pt reports he now has trouble with getting dressed as his daughters help him don his socks. Pt reports he has stairs at home that lead to his basement that he is able to negotiate as long as he uses 2 handrails and one step at a time. Pt reports he is very limited with ambulating prolonged distances. Pt denies LE tingling or numbness at this time. Pt lives with his daughter. Pt reports he is able to shower independently. Pt reports he is able to go to the store for shopping, but he has to use a motorized scooter to make it through the store. Pt reports he just hopes to get stronger and be able to get around better by the time he is finished with PT. Pt reports his LBP is 8/10, and notes this is as high as it gets. Pain LBP: Pain Intensity (Out of 10): 8 Pain Intensity Range: 8 Objective Objective: Neuro: B LE sensation is WNL to light touch throughout MMT: L knee flex= 24, ext= 35 #F; R knee flex= 26, ext= 49 #F Gait: Pt is able to ambulate approximately 140 feet with rollator until needing to rest secondary to pain TU.3 sec sit to stands: Pt able to perform 8 reps in 30 seconds Balance/Special Test Scores Lower Extremity Functional Score: 21 Goals Goal 1:: Pt will be able to perform 12 sit to stand transfers in 30 sec to aid with improving independence at home Goal Time Frame: 4-6 Weeks Goal 2:: Pt will be able to ambulate greater than 340 feet without a break and use of LRD to aid with community ambulation Goal Time Frame: 4-6 Weeks Goal 3:: Pt will perform the TUG test in less than 18 seconds to aid with ease of mobility around the house Goal Time Frame: 4-6 Weeks Goal 4:: I with HEP Goal Time Frame: 4-6 Weeks Rehabilitation Potential Physical Therapy Diagnosis: Pt has LE weakness, difficulty with gait, and difficulty with transfers secondary to deconditioning Rehabilitation Potential: Good Anticipated Interventions Patient/Client Instruction: Educate patient on: Condition and Plan of Care For the Purpose of:: To improve self management Therapeutic Exercise to Include: Strength training, Endurance training, Balance training, Gait and locomotor training, Active ROM and Dynamic Lumbar Stabilization For the Purpose of:: To improve muscle performance and motor function, To increase tolerance to activity/condition/position and To improve performance and independence with ADL's Text: Thank you for the opportunity to evaluate your patient. For Medicare and Medicare HMO plans, please review the plan of care and approve it. It will need to be FAXED BACK to us at [phone] for Medicare purposes. For Medicare only, by signing this I certify the plan of care. Please let me know if there are questions or concerns regarding this plan of care. Physician Signature: Date:
--- NOTE | 2023-09-15 11:05 | HP.PT.NRP ---
Patient Information Patient Information: RICHARD PARRY was seen in my office for initial evaluation on 06/17/23. The following Plan of Care was established for this patient: POC Established Initial Frequency: 2-3x /Week Initial Duration: 4-6 Weeks Anticipated Interventions Patient/Client Instruction: Educate patient on: Condition and Plan of Care For the Purpose of:: To improve self management Therapeutic Exercise to Include: Strength training, Endurance training, Balance training, Gait and locomotor training, Active ROM and Dynamic Lumbar Stabilization For the Purpose of:: To improve muscle performance and motor function, To increase tolerance to activity/condition/position and To improve performance and independence with ADL's Last Seen Last Seen: This patient was last seen in our office . Pertinent comments regarding their Physical therapy will appear below: Patient called from desk and asked to be d/c from PT- pt has missed multiple appt and is appropriate to be d.c and return to MD for further evaluation as needed. At this point I will be discontinuing this patient from physical therapy. I would be happy to see this patient again in the future if found appropriate by the physician. Thank you! Shadia Guan, HILARIOT Balance/Gait/Functional tests Balance/Special Test Scores Functional Gait Assessment Score: 11 % Disability: 63.3400 Lower Extremity Functional Score: 21
== END 2023-09-01 19:00 | disposition home or self-care (01) ==
LOC: PT 14:30
PROVIDERS: PCP Family Medicine Geriatric Medicine; Referring Provider Internal Medicine; Visit Provider Internal Medicine
DX: R53.81 Other malaise (principal); M54.50 Low back pain, unspecified
CPT/HCPCS: 97110; 97161; 97530

== ENCOUNTER → 2023-09-05 | Outpatient (CLI) | payer MEDICARE, OTHER, SELFPAY ==
--- NOTE | 2023-09-05 09:36 | US_ITS ---
PROCEDURE: Ultrasound guided paracentesis. DATE OF EXAMINATION: September 05, 2023.. INDICATION: Male, 78 years old. Ascites. PHYSICIAN: Manuelito Mathews M.D. TECHNIQUE: The risks, benefits, and alternatives to the procedure were explained to the patient. The specific risks of bleeding, infection, and damage to bowel were detailed and accepted. Witnessed informed consent was obtained. The abdomen was ultrasonographically surveyed. An appropriate pocket of fluid was identified at the right lower quadrant. The skin were cleaned and prepped in the usual sterile fashion. Using ultrasound guidance, the peritoneal cavity was accessed with a 5-[place] paracentesis needle/catheter system. The trocar was removed. A total of 7950 ml of tiffany-colored fluid were removed from the peritoneal cavity. The catheter was removed and a sterile dressing was applied. The procedure was well tolerated. US/Paracentesis with US IMPRESSION: Ultrasound guided paracentesis. Electronically Signed: Manuelito Mathews MD at 10:46 EDT ,
[2023-09-05 09:47] VITALS: BP 101/62; PULSE 73; RESP 18; TEMP 37.1; O2SAT 99
[2023-09-05] MEDS: Lidocaine 2% (20 ml mdv) 20 ML Vial INFILT (09:53)
[2023-09-05 09:55] VITALS: BP 150/64; PULSE 78; RESP 18; O2SAT 96
[2023-09-05 10:10] VITALS: BP 139/64; PULSE 75; RESP 18; O2SAT 97
[2023-09-05 10:25] VITALS: BP 141/57; PULSE 80; RESP 18; O2SAT 97
[2023-09-05 10:35] VITALS: BP 137/64; PULSE 77; RESP 18; O2SAT 98
[2023-09-05] MEDS: 0.9% Saline Lock 10 ML Syringe IV (10:40)
[2023-09-05 10:57] VITALS: BP 137/72; PULSE 71; RESP 16; TEMP 35.9; O2SAT 98; BMI 29.1
[2023-09-05] MEDS: Albumin Human 25% (100 mL) 25 GM/100 ML BAG IV ×2 (11:05→12:33)
--- NOTE | 2023-09-05 12:03 | CASEMGMT ---
Addendum entered by Michelle Mcfadden 09/05/23 14:24: Call placed to [facility] and spoke w/Chayo Evans. Pt's questions answered/information provided. RN CM back to room and info provided to pt. RN CM pulled up the menu on their website for the Hot Meal plan They do not have menu for Frozen Meal plan and pt is aware. Pt had further questions. Call placed back to Chayo while RN TRENT in room w/pt and pt able to ask further questions. Referral made for [facility]. They will call pt sometime next week to arrange for meals to be delivered. Once they talk w/pt next week they will provide him w/address to mail his check to. Pt aware of same. Pt aware if he does not like [facility] that he can cancel anytime and he still has the info for the other home delivered meal companies. He voices understanding. Pt provided w/luis Burgess Handouts on low sodium and RN TRENT reviewed some of the information w/pt today. Pt had many questions which were answered. Discussed 1,500 ml fluid intake restriction and further questions answered. Noted pt has f/u appt w/Dr Mathews in September [place]. Pt provided w/this info and stated, That must be the appt I was thinking about that was coming up. 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 Pt inquired if there is somewhere around [place] where veterans or people his age hang out, as he is interested in meeting w/others. Pt made aware someone will f/u with him either next week or when he returns for next paracentesis and provide further resources that may be available. Pt's daughter, Maryanne, arrived to take pt home, as Albumin infusion almost complete. Pt gave RN CM permission to discuss information w/her that was discussed w/pt today. Pt denies having further needs/questions at this time. Original Note: RN CM Care Coordination Note: Prior SW and RN CM notes reviewed. Met w/pt today for f/u on several prior identified needs/requests. RN TRENT met w/pt @ the infusion center while pt getting Albumin infusion, post paracentesis today. Introduced self and role. Pt states his daughter, Maryanne, is still living with him, and reports his home is still a mess. Noted Lin ESCOBAR, contacted both [facility] and Jigar, SHAWN @ [employer], in 03/2023 for resources/assistance for pt w/cleaning his home or for a JUDICIAL REGISTRAR. JACOB NEWMAN mentioned this to pt and he stated, I've never heard anything from anyone. He states he does not always answer his phone d/t getting so many scam and tele-diagram clerk calls, but that he often checks his VM and will call people back if they say who they are and leave a number. He states he is still interested in help in the home. JACOB NEWMAN placed call to [facility] and VM left on Michael ESCOBAR's VM, and asked for f/u phone call to JACOB NEWMAN re: this pt. This JACOB NEWMAN contact # and TRENT Wadsworth industrial safety and health manager, #'s provided. Meals/Nutrition/Dietary restrictions: Pt states he is still in need of getting Meals on Wheels. He states he contacted the [facility] a couple weeks ago for home delivered meals but states he was informed he is On a waiting list. He states he usually only eats about once a day. He does not usually prepare meals @ home for himself, stating, I never learned how to, but will sometimes use the crock-pot. He goes out to eat @ [employer] about 2-3 x's/week or to fast-food, such as [employer] or [employer] about 2 x's/week. When @ home, he often eats [employer] food. He voices he is aware he to be on a low Na+ diet. Educated pt that most fast food options, foods, [employer], and processed foods are high in Na+. He states, Well then what can I eat that isn't high in sodium?. Discussed option of paying for [facility] or other home-delivered meals [id number] at this time, in the interim until he can get assistance. Pt provided w/information re: [employer], [employer] meals, and [employer]. He voiced interest in [facility], stating the cost of $7.75/meal would be cheaper than what he is paying eating out or @ fast-food. He inquired if [facility] food was low Na+, if they have a menu to choose from, if they take checks, and if he would pay monthly. Pt made aware [facility] meals are low sodiaum. Pt informed that JACOB NEWMAN would call to find answers to the other questions and provide this info to him once obtained. Call placed to TIMOTHY @ [phone] and spoke w/Chayo Evans. She states the menu is on-line @ [employer], they would need 2-wks paid in advance (min of $77.50), then payments would be monthly, and they do take checks. She states they do not currently have funding for the Donation Based Program, but if pt qualifies, they can place him on the waiting list. The only current option is for Private Pay. Palliative Care: JACOB NEWMAN broached topic of Palliative Care w/pt. Questions answered. Pt states, I'd have to talk to them about it first and get further information before I know if I'd want that. He is agreeable to referral for someone to call and discuss this topic further. He was made aware JACOB NEWMAN would f/u with Dr Bright to inquire about an order for Palliative referral and if order was received, someone from Palliative Care would be contacting him. He voices understanding. He was also provided w/Palliative pamphlet/contact info. Call placed to Dr Bright's office prior to 12 PM today and message received that the office is closed. JACOB Wadsworth CM industrial safety and health manager, notified that pt is agreeable to referral to Palliative and will f/u with Dr Bright next week. Medications: Pt states he does not like taking medications and that the only medications he takes if for pain, when needed. He states he does not take medications on a routine bases, although he knows he is supposed to. He states it is difficult to swallow pills and he has to use a lot of applesauce. He states he did not end up looking into getting a pill inspector aide, as recommended by JACOB Wadsworth CM, @ a prior visit. Discussed options of places he can buy a pill inspector aide at and also reminded that not all medications are allowed to be crushed and that he would need to check w/the pharmacist which ones can be. He states, I wish I could just get all of them in liquid form. He does not take the Lactulose liquid, though, as it causes diarrhea. Discussed [facility] for education and assistance w/ medication management. He states, I'm not interested. I'm 78-yrs-old and I'm getting along pretty good. He states he would not take medications anyway, even if someone was coming to his home to assist w/this. Appointments: Pt states he thinks he has an appt scheduled w/Dr Bright, but does not remember when it is. He states, I'll have to check my calendar. He has an appt w/Dr Robles next Wed and states Dr Robles is working on getting him a back brace. He does not think he has any upcoming appts w/ Friend, but he is not sure. Pt denies having other needs/concerns at this time. Salvador TESFAYEN RN CM
--- NOTE | 2023-09-09 09:46 | CASEMGMT ---
Addendum entered and electronically signed by Ermelinda Lester RN 09/09/23 13:06: Pt returned call. Reviewed the items noted below including VA benefits and need to attend VA PCP appointment to qualify for any services. Pt states they did ask him if he was a when he signed up for [facility]. States he will receive his first meal on Friday. Discussed the [facility] as an option for socialization. Pt states he may just stop down there and see what may be available. Pt denied any further questions or concerns at this time. 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 States an appointment with the VA PCP is needed for any additional services to be provided and this appointment can be virtual if pt desires or has access to a smart phone or other device. Pt has had two appointments scheduled, one in June 2022 and one in June 2023 which he was a no show. MOWs: The VA does not provide a MOW program but often these services will provide a discount to veterans. TOP ICER: They do not provide strictly household cleaning assistance. Pt would need to also require assistance with personal care such as bathing, dressing, or skin care. Some light housekeeping could be performed during these visits. Pt would need to be seen by the VA PCP before pt would be considered for this service. Socialization: [place] not any [place] contracted adult day centers in the [facility]. They do not have a contract with [employer]. Other contracted providers are in [place]. Transportation: [place] provides transportation to [place] providers only. Call placed to Dr. Bright's office and spoke with Early Learning Teacher Sallie regarding pt's interest in palliative care services. Per Sallie, she will discuss with Dr. Bright and they will place the referral if Dr. Bright is agreeable. Call placed to patient to discuss the above items and call went straight to voiceoril. Message left requesting a return call. Aleta Lester RN AC
== END | disposition home or self-care (01) ==
LOC: US 09:34
PROVIDERS: PCP Family Medicine Geriatric Medicine; Referring Provider Family Medicine Geriatric Medicine; Visit Provider Family Medicine Geriatric Medicine
DX: K74.60 Unspecified cirrhosis of liver (principal); R18.8 Other ascites
CPT/HCPCS: 96365; 96366; 49083; P9047; A4216

== ENCOUNTER 2023-09-19 09:25 | Outpatient (CLI) | payer MEDICARE, OTHER, SELFPAY ==
[2023-09-19 09:40] VITALS: BP 110/65; PULSE 78; RESP 16; O2SAT 94
[2023-09-19] MEDS: Lidocaine 2% (20 ml mdv) 20 ML Vial INFILT (09:49)
[2023-09-19 09:55] VITALS: BP 120/60; PULSE 79; RESP 16; O2SAT 97
[2023-09-19 10:10] VITALS: BP 112/55; PULSE 74; RESP 16; O2SAT 98
[2023-09-19] MEDS: Albumin Human 25% (100 mL) 25 GM/100 ML BAG IV (10:36)
[2023-09-19 10:37] VITALS: BMI 29.9
[2023-09-19] MEDS: 0.9% NaCl Peripheral Flush Adult/Peds IV (10:37)
--- NOTE | 2023-09-19 11:21 | PCM.OP.PRO ---
Procedure Report Date of Procedure: 09/19/23 Assessment & Plan Assessment/Plan (1) Ascites: QUALIFIERS: Ascites type: other type Qualified Code(s): R18.8 - Other ascites PLAN: PROCEDURE: Ultrasound guided paracentesis ORDERING PROVIDER: Dr. Bright INDICATION: Male, 78 years old. Ascites. PROVIDER: IVANA Hidalgo TECHNIQUE: The risks, benefits, and alternatives to the procedure were explained to the patient. The specific risks of bleeding, infection, and damage to bowel were detailed and accepted. Witnessed informed consent was obtained. The abdomen was ultrasonographically surveyed. An appropriate pocket of fluid was identified in the right lower quadrant. The skin was prepped with chlorhexidine and sterile field established. 2% lidocaine was used for local anesthetic. Using ultrasound guidance, the peritoneal cavity was accessed with a 5-Venezuelan paracentesis needle/catheter system. The trocar was removed. A total of 7000 ml of clear yellow colored fluid was removed from the peritoneal cavity. The catheter was removed and a sterile dressing was applied. The procedure was well tolerated. IMPRESSION: Successful ultrasound-guided paracentesis with right lower quadrant access site. Procedures Radiology Radiology US Procedures: 38821 Paracentesis
[2023-09-19] MEDS: Albumin Human 25% (50 mL) 12.5 GM/50 ML IV.SOLN IV (12:00)
[2023-09-19 13:04] VITALS: BP 126/64; PULSE 81; RESP 16; TEMP 36.4; O2SAT 98
== END 2023-09-19 23:59 | disposition home or self-care (01) ==
LOC: US 09:26
PROVIDERS: PCP Family Medicine Geriatric Medicine; Referring Provider Family Medicine Geriatric Medicine; Visit Provider Family Medicine Geriatric Medicine
DX: R18.8 Other ascites (principal)
CPT/HCPCS: 96365; 96366 ×2; 49083; J7050; P9047

== ENCOUNTER 2023-10-03 09:30 | Outpatient (CLI) | payer MEDICARE, OTHER, SELFPAY ==
[2023-10-03] MEDS: 0.9% Saline Lock 10 ML Syringe IV (10:25)
[2023-10-03] MEDS: Lidocaine 2% (20 ml mdv) 20 ML Vial INFILT (10:25)
[2023-10-03 10:39] VITALS: BP 156/69; PULSE 85; RESP 18; TEMP 36.4; O2SAT 93
[2023-10-03 10:40] VITALS: BP 150/72; PULSE 82; RESP 18; O2SAT 97
[2023-10-03 10:41] VITALS: BP 162/69; BP 167/71; PULSE 74; PULSE 82; RESP 18; O2SAT 97
[2023-10-03] MEDS: Albumin Human 25% (100 mL) 25 GM/100 ML BAG IV (10:59)
--- NOTE | 2023-10-03 11:04 | PRO.PCM_ITS ---
Procedure Report Date of Procedure: 10/03/23 Assessment & Plan Assessment/Plan (1) Ascites: QUALIFIERS: Ascites type: other type Qualified Code(s): R18.8 - Other ascites PLAN: PROCEDURE: Ultrasound guided paracentesis ORDERING PROVIDER: Dr. Bright INDICATION: Male, 78 years old. Ascites. PROVIDER: IVANA Hidalgo TECHNIQUE: The risks, benefits, and alternatives to the procedure were explained to the patient. The specific risks of bleeding, infection, and damage to bowel were detailed and accepted. Witnessed informed consent was obtained. The abdomen was ultrasonographically surveyed. An appropriate pocket of fluid was identified in the left lower quadrant. The skin was prepped with chlorhexidine and sterile field established. 2% lidocaine was used for local anesthetic. Using ultrasound guidance, the peritoneal cavity was accessed with a 5-Cape Verdean paracentesis needle/catheter system. The trocar was removed. A total of 5750 ml of clear yellow colored fluid was removed from the peritoneal cavity. The catheter was removed and a sterile dressing was applied. The procedure was well tolerated. IMPRESSION: Successful ultrasound-guided paracentesis with left lower quadrant access site. Procedures Radiology Radiology US Procedures: [id number] Paracentesis
[2023-10-03] MEDS: Albumin Human 25% (50 mL) 12.5 GM/50 ML IV.SOLN IV (12:28)
[2023-10-03 13:33] VITALS: BP 145/68; PULSE 84; RESP 16; TEMP 36.5; O2SAT 93
== END 2023-10-03 23:59 | disposition home or self-care (01) ==
LOC: US 09:30
PROVIDERS: PCP Family Medicine Geriatric Medicine; Referring Provider Family Medicine Geriatric Medicine; Visit Provider Family Medicine Geriatric Medicine
DX: R18.8 Other ascites (principal)
CPT/HCPCS: 96365; 96366 ×2; 49083; P9047; A4216

== ENCOUNTER 2023-10-13 16:47 | Inpatient (IN) | payer MEDICARE, OTHER, SELFPAY ==
[2023-10-13] VITALS (29 sets, daily range): BP systolic 63–123; BP diastolic 38–89; PULSE 76–138; RESP 16–25; TEMP 36.1–36.6; O2SAT 96–100; BMI 29.8; BMI 28.2
--- NOTE | 2023-10-13 06:00 | US_ITS ---
STUDY: ABDOMINAL ULTRASOUND -4 quadrant REASON FOR VISIT: Male, 78 years old ascites survey. TECHNIQUE: Ultrasound evaluation of the 4 quadrants was performed with real-time and static martin-scale imaging. TECHNICAL QUALITY: Adequate. COMPARISON: None. FINDINGS: Free fluid is seen in all 4 quadrants. The left lower quadrant as the largest pocket. US/Liver IMPRESSION: Ascites. Electronically Signed: Manuelito Mathews MD at 9:46 EDT ,
--- NOTE | 2023-10-13 16:56 | CT_ITS ---
EXAM: CT HEAD WITHOUT INTRAVENOUS CONTRAST CLINICAL INDICATION: altered mental status TECHNIQUE: Multiple axial images were obtained of the head without intravenous contrast. This CT exam was performed using one or more of the following dose reduction techniques: automated exposure control, adjustment of the mA and/or kV according to patient size, and/or use of iterative reconstruction technique. COMPARISON: 03/06/2022 FINDINGS: BRAIN AND EXTRA-AXIAL SPACES: There is mild enlargement of ventricular system and cortical sulci. There is hypoattenuation in the periventricular white matter. No intra- or extra-axial hemorrhage. No evidence of acute infarct. No intracranial mass or mass effect. There is preservation of the martin/white matter interface. Posterior fossa structures are unremarkable. Basal cisterns are patent. BONES/JOINTS: Unremarkable. No discrete lytic or blastic abnormalities. SINUSES: Unremarkable as visualized. Clear. MASTOID AIR CELLS: Unremarkable. Clear. ORBITS: Visualized globes, extraocular muscles, optic nerves and retrobulbar fat appear unremarkable. CT/Brain/Head without Contrast IMPRESSION: 1. No acute intracranial abnormality. There has been no significant change from the reference exam. 2. Mild senescent change with small vessel ischemia. Electronically Signed: Ismael Donnelly MD at 19:05 EDT ,
--- NOTE | 2023-10-13 16:56 | EKG12_ITS ---
Test Reason : SOB Blood Pressure : / mmHG Vent. Rate : 133 BPM Atrial Rate : 133 BPM P-R Int : 142 ms QRS Dur : 076 ms QT Int : 298 ms P-R-T Axes : 063 -02 075 degrees QTc Int : 443 ms Sinus tachycardia Low voltage QRS Nonspecific T wave abnormality Abnormal ECG Confirmed by Felix Hopkins ([id number]), supervising editor news reel CHARLOTTE SOSA ([id number]) on 10/15/2023 8:19:41 AM Referred By: Confirmed By:Felix Hopkins
--- NOTE | 2023-10-13 17:10 | RAD_ITS ---
EXAM: XR CHEST, 1 VIEW CLINICAL INDICATION: intubation TECHNIQUE: Frontal view of the chest. COMPARISON: 06/06/2023 FINDINGS: LUNGS AND PLEURAL SPACES: There is bibasilar consolidation which may represent atelectasis. There are bilateral pleural effusions larger on the right than on the left. No pneumothorax. HEART: Unremarkable. Cardiac silhouette not enlarged. MEDIASTINUM: Central airways and mediastinal contour are unremarkable. BONES/JOINTS: Unremarkable. No acute fracture. SOFT TISSUES: Unremarkable. TUBES, LINES AND DEVICES: Endotracheal tube is in place with the distal tip 3.5 cm above the len. Nasogastric tube is in place with the distal tip in the stomach. RAD/Chest 1 View (Portable) IMPRESSION: Bilateral pleural effusions larger on right than on the left likely with bibasilar atelectasis. Support structures in good position. Electronically Signed: Ismael Donnelly MD at 17:29 EDT ,
[2023-10-13 17:12] LABS: Allen Test Positive; Base Excess 10 mmol/L (-2 to +2); Bicarbonate 38.4 mmol/L (22-26); Blood Gas Specimen Type ART; Mode AC; O2 Delivery Device Adult Vent; PEEP 5; PO2 186 mmHG (75-100); RR 16; SITE R Brach; SO2 99 % (95-99); Total Carbon Dioxide 41 mmol/L; pCO2 97.7 mmHg (35-45)
[2023-10-13 17:16] LABS: Squamous Epithelial Cells - UA 0 SEEN /hpf (0-5)
[2023-10-13 17:17] LABS: Absolute Lymphocyte Count 0.63 X10^3/uL (0.83-4.51); Absolute Neutrophil Count 4.4 X10^3/uL (2.0-7.7); Basophil# 0.02 X10^3/uL; Basophil% 0.3 % (0-1); Eosinophil# 0.02 X10^3/uL; Eosinophils% 0.3 % (0-5); Hematocrit 32.5 % (40-54); Hemoglobin 9.7 g/dL (13.0-16.5); Lymphocyte # 0.63 X10^3/ul (0.83-4.51); Lymphocyte % 10.6 % (19-41); Mean Corp Hgb Conc 29.8 g/dL (32-36); Mean Corpuscular Hgb 33.4 pg (27.0-32.0); Mean Corpuscular Volume 112.1 fL (80-94); Monocyte# 0.84 X10^3/uL; Monocyte% 14.2 % (0-10); NRBC Flagged by Analyzer 0 % (0-5); Neutrophil # 4.37 X10^3/uL (2.7-7.7); Neutrophil % 73.8 % (47-70); POSITIVE COUNT YES; Platelet Count 80 K/mm3 (150-450); RBC Distribution Width CV 15.1 % (11.6-14.6); RBC Distribution Width SD 61.9 fl (35.1-43.9); White Blood Count 5.9 K/mm3 (4.4-11.0)
--- NOTE | 2023-10-13 17:18 | CPS ---
per MD Le increased RR to 18
[2023-10-13] MEDS: Ipratropium/Albuterol Sulfate 3 ML AMPUL.NEB INHALATION ×2 (17:20→21:00)
[2023-10-13] MEDS: fentaNYL drip 100 ML 2.5 MCG CONT INF (17:26)
[2023-10-13 17:27] LABS: Color, Urine Yellow (Yellow); Glucose, Dipstick Normal (Normal); Ketone-Dipstick Negative (Negative); Leukocyte Esterase-Dipstick 100 /ul (Negative); Nitrite-Dipstick Negative (Negative); Occult Blood-Urine 150 /ul (Negative); Protein-Dipstick 100 mg/dl (Negative); Urine Bilirubin Dipstick Negative (Negative); Urine Clarity Cloudy (Clear); Urine Urobilinogen 4 mg/dl (Normal)
[2023-10-13] MEDS: 0.9% Normal Saline (1000mL) 1,000 ML 999 ML IV ×3 (17:28→18:41)
[2023-10-13 17:31] LABS: ALB/GLOB Ratio 0.8 RATIO (0.9-2.4); AST(SGOT) 24 U/L (15-37); Alanine Aminotransfer ALT/SGPT 21 U/L (16-61); Albumin, Serum 2.7 g/dL (3.2-5.0); Alkaline Phosphatase 106 U/L (45-117); Anion Gap -1 (5-15); BUN 55 mg/dL (7-18); BUN/Creat Ratio 25.7 RATIO (10-20); Calcium,Total 8.6 mg/dL (8.5-10.1); Chloride 107 mmol/L (98-107); Creatinine, Serum 2.14 mg/dL (0.70-1.30); EST Glomerular Filtration Rate 32 mL/min (>60); Est Glom Filt Rate - Afr Amer 38 mL/min (>60); Estimated Creatinine Clearance 27.05 ml/min; Globulin 3.5 g/dL (2.2-4.2); Glucose 130 mg/dL (74-106); International Normalized Ratio 1.3; Potassium 5.8 mmol/L (3.5-5.1); Protein, Total 6.2 g/dL (6.4-8.2); Prothrombin Time (Protime)PT. 16.5 SECONDS (11.7-14.9); Sodium Level 146 mmol/L (136-145)
--- NOTE | 2023-10-13 17:31 | ED.RN ---
PT BROUGHT IN BY [facility], CALLED FOR UNRESPONSIVE PT. [facility] BS [facility] 161. DAUGHTER OF PT SAID LNW TO HER KNOWLEDGE WAS AROUND [phone] FLORES MADE AWARE OF UNRESPONSIVE PT BROUGHT IN AT 1645. RESPIRATORY CALLED AND INTUBATION DONE AT 1650. 20MG OF ETOMIDATE AND 80 OF SUCCINYLCHOLINE PUSHED AT 1650. BAG MASKED 100%, 114/42, HR 92, 19 RR. ET=7.5 PLACED AT 22 LIP WITH COLOR CHANGE. CASTANO PLACED AT 1654 SIZE 18 HEBREW. [facility] HAD A 20 IN THE R-AC AND Torito LOPEZ RN, PLACED AN 18 IN THE L-AC. OG PLACED-16 FR. LACTIC AND CULTURES WERE DRAWN AT THE TIME OF L-AC PLACEMENT. PT PLACED IN SOFT RESTRAINTS AT 1730 D/T A LITTLE AGITATION. PAPERWORK FOR SOFT RESTRAINTS STARTED.
[2023-10-13 17:32] LABS: Partial Thromboplast Time 32.5 Seconds (24.1-36.2)
[2023-10-13 17:36] LABS: Bacteria 3+ /hpf (None Seen); Coarse Granular Cast 0-5 SEEN /lpf (0-5 /lpf); Hyaline Cast 0-5 SEEN /lpf (0-5); Mucous, Urine 2+ /hpf (<or=2+); Red Blood Cells-Urine 5-10 SEEN /hpf (0-5); White Blood Cells 25-50 SEEN /hpf (0-5)
[2023-10-13 17:39] LABS: CPK Total, Creatine Kinase 47 U/L (39-308); Triglycerides 95 mg/dL
[2023-10-13] MEDS: Midazolam 2 MG/2 ML Syringe IV (17:44)
[2023-10-13] MEDS: MethylPREDNISolone 125 MG/2 ML Vial IV (17:44)
[2023-10-13] MEDS: Albuterol 2.5 MG/3 ML VIAL.NEB. INHALATION (17:44)
--- NOTE | 2023-10-13 18:02 | RAD_ITS ---
EXAM: XR CHEST, 1 VIEW CLINICAL INDICATION: PLACEMENT CENTRAL LINE TECHNIQUE: Frontal view of the chest. COMPARISON: 10/13/2023 at 1708 FINDINGS: LUNGS AND PLEURAL SPACES: See below. HEART: Unremarkable. Cardiac silhouette not enlarged. MEDIASTINUM: Central airways and mediastinal contour are unremarkable. BONES/JOINTS: There is a right-sided effusion with right-sided airspace disease. There has been mild improved aeration from the reference exam. No acute fracture. SOFT TISSUES: Unremarkable. TUBES, LINES AND DEVICES: Endotracheal tube nasogastric tube are in stable position. Right jugular catheter is in place with the distal tip overlying the superior vena cava. RAD/Chest 1 View (Portable) IMPRESSION: Right-sided effusion with right lower lobe pneumonia. Support structures in good position. Electronically Signed: Ismael Donnelly MD at 18:54 EDT ,
[2023-10-13] MEDS: Piperacil/Tazobactam 3.375 GM in 0.9% Normal Saline (50mL MB+) 50 ML IV ×2 (18:28→20:31)
[2023-10-13] MEDS: Insulin Lispro 10 UNIT in Syringe 0 ML 6 UNIT IV (18:32)
[2023-10-13] MEDS: Dextrose 10%-Water 250 ML 999 ML IV (18:34)
[2023-10-13] MEDS: Vancomycin HCl 2,000 MG in 0.9% Normal Saline (500mL Bag) 500 ML 250 MG IV (18:35)
--- NOTE | 2023-10-13 18:54 | HP.PCM.HOS_ITS ---
HPI - General General Date of Admission: 10/13/23 Date of Service: 10/13/23 Chief Complaint: AMS HPI Narrative RICHARD PARRY, is a 78 M with history of COPD, Parkinson's, diabetes, cirrhosis with frequent paracenteses who presented to [facility] ED 09/23/2023 with altered mental status. He was found to have a pH of 7.20 and a pCO2 of 97.7, patient was confirmed to be full code and was intubated. He was given IV fluids and IV antibiotics and hospitalist contacted for admission. Patient evaluated at bedside. Reportedly patient had met with hospice over the past 1 to 2 days however had expressed his desire to be full code per daughter at bedside hospice is revoked. He had been somewhat tired and weak over this past 7 days but this morning was roughly baseline mental status and then he was found in the afternoon to have decreased level of consciousness prompting ED evaluation. Patient presently unable to answer any questions, history as above per patient's daughter. Of note he does have cirrhosis with routine paracentesis and is supposed to get his next 1 on Friday. [facility] Medical History (Updated 10/13/23 @ 19:[address] Bernarda Ugalde MD) Anxiety Asthma Cardiology follow-up encounter COPD (chronic obstructive pulmonary disease) Diabetes Difficulty swallowing Former smoker Gastric reflux History of echocardiogram Hyperlipidemia Hypertension Liver disease Parkinsonian features Poor historian Home Medications ?Medication ?Instructions ?Recorded ?Last Taken ?Type tamsulosin 0.4 mg capsule 0.8 mg PO QHS prostate 06/26/15 06/25/15 History carbidopa 25 mg-levodopa 100 mg 2 tab PO TIDAC parkinsons 09/11/15 Unknown History tablet empagliflozin 10 mg tablet 10 mg PO DAILY diabetes 01/09/18 Unknown History (Jardiance) levothyroxine 125 mcg tablet 125 mcg PO DAILY THYROID 03/06/22 Unknown History (Levoxyl) ropinirole 2 mg tablet 2 mg PO QHS RESTLESS LEGS 03/06/22 Unknown History trazodone 50 mg tablet 30 mg PO DAILY SLEEP 03/06/22 Unknown History acetaminophen 325 mg tablet 650 mg (2 x 325 mg) PO Q6H PRN PRN 03/13/22 Unknown Rx (Tylenol) Pain 1-10 Or Fever >100.7 #0 tabs insulin lispro 100 unit/mL See Protocol subcut ACHS diabetes 03/13/22 Unknown Rx subcutaneous pen (Humalog KwikPen #0 mL (U-100) Insulin) gabapentin 100 mg capsule 100 mg PO TID pain 30 days #90 caps 06/03/23 Unknown Rx oxycodone 5 mg capsule 5 mg PO Q6H PRN pain 3 days #12 06/03/23 Unknown Rx caps furosemide 40 mg tablet 40 mg PO BID diuretic 1 month #60 06/25/23 Unknown Rx tabs lactulose 20 gram/30 mL oral 20 g (30 mL) PO BID 1 month #1,800 06/25/23 Unknown Rx solution mL nadolol 20 mg tablet 20 mg PO DAILY 1 month #30 tabs 06/25/23 Unknown Rx pantoprazole 40 mg tablet,delayed 40 mg PO DAILY reflux #30 tabs 06/25/23 Unknown Rx release rifaximin 550 mg tablet (Xifaxan) 550 mg PO BID stools 1 month #60 06/25/23 Unknown Rx tabs spironolactone 50 mg tablet 50 mg PO DAILY diuretic 1 month 06/25/23 Unknown Rx #30 tabs Allergy/AdvReac Type Severity Reaction Status Date / Time aloe vera AdvReac Rash Verified 09/19/23 10:39 diclofenac AdvReac intolerance, Verified 09/19/23 10:39 leg edema Family History Other Cancer Surgical History Hx of hand surgery Social History household members: children housing: apartment Smoking Status: Former smoker ROS ROS Narrative Unable to obtain secondary to mental status Vital Signs Vital Signs Vital Signs: 10/13/23 16:48 10/13/23 16:50 10/13/23 16:55 Temperature 97.0 F L Temperature Source Temporal Pulse Rate 138 H Respiratory Rate 16 16 Respiratory Effort Accessory Muscle Use Respiratory Depth Shallow Respiratory Pattern Apnea Blood Pressure 106/57 L Blood Pressure Mean 73 Pulse Ox 98 97 Oxygen Delivery Method Mechanical Ventilator Mechanical Ventilator Fraction of Inspired Oxygen (FIO2) 30 10/13/23 17:04 10/13/23 17:16 10/13/23 17:18 Temperature 97.8 F 987.8 F H Temperature Source Temporal Temporal Pulse Rate 89 96 Respiratory Rate 20 H 20 H Respiratory Effort Respiratory Depth Respiratory Pattern Blood Pressure 63/38 L 68/38 L Blood Pressure Mean 46 48 Pulse Ox 97 97 Oxygen Delivery Method Mechanical Ventilator Mechanical Ventilator Mechanical Ventilator Fraction of Inspired Oxygen (FIO2) 10/13/23 17:28 10/13/23 17:30 10/13/23 17:30 Temperature Temperature Source Pulse Rate 85 102 H 85 Respiratory Rate 18 23 H 18 Respiratory Effort Respiratory Depth Respiratory Pattern Blood Pressure 103/80 Blood Pressure Mean 87 Pulse Ox 97 97 Oxygen Delivery Method Mechanical Ventilator Fraction of Inspired Oxygen (FIO2) 50 10/13/23 18:00 10/13/23 18:38 10/13/23 18:44 Temperature 97.8 F Temperature Source Pulse Rate 78 76 105 H Respiratory Rate 23 H 25 H 20 H Respiratory Effort Respiratory Depth Respiratory Pattern Blood Pressure 91/57 L 86/60 L 102/78 Blood Pressure Mean 68 68 86 Pulse Ox 96 100 100 Oxygen Delivery Method Mechanical Ventilator Mechanical Ventilator Fraction of Inspired Oxygen (FIO2) Weight Weight: 81.4 kg Body Mass Index (BMI) 29.8 Physical Exam Narrative General: Intubated and sedated HEENT: Atraumatic, normocephalic Eyes: Eyes closed, no spontaneous opening Neck: Supple Respiratory: Mechanically ventilated, diffuse wheezes and diffusely coarse Cardiovascular: Regular rate and rhythm GI: Soft, nontender, nondistended Extremities: No edema Musculoskeletal: Presently sedated and not moving extremities spontaneously Neuro: Unable to participate in neuro exam secondary to intubated and sedated Skin: No rashes appreciated Psych: Unable to cooperate secondary to intubated and sedated Results Lab / Micro Data 10/13/23 16:58 10/13/23 16:58 Labs: Laboratory Results - last 24 hr 10/13/23 16:58: WBC 5.9, RBC 2.90 L, Hgb 9.7 L, Hct 32.5 L, MCV 112.1 H, MCH 33.4 H, MCHC 29.8 L, RDW Std Deviation 61.9 H, RDW Coeff of Jean Claude 15.1 H, Plt Count 80 L, MPV 9.0, Immature Gran % (Auto) 0.800, Neut % (Auto) 73.8 H, Lymph % (Auto) 10.6 L, Ogle % (Auto) 14.2 H, Eos % (Auto) 0.3, Baso % (Auto) 0.3, Absolute Neuts (auto) 4.4, Absolute Lymphs (auto) 0.63 L, Nucleated RBC % 0, PT 16.5 H, INR 1.3, APTT 32.5, Sodium 146 H, Potassium 5.8 H, Chloride 107, Carbon Dioxide 40.0 H, Anion Gap -1 L, BUN 55 H, Creatinine 2.14 H, Estim Creat Clear Calc 27.05, Est GFR (MDRD) Af Amer 38 L, Est GFR (MDRD) Non-Af 32 L, B UN/Creatinine Ratio 25.7 H, Glucose 130 H, Lactic Acid 2.0, Calcium 8.6, Total Bilirubin 2.20 H, AST 24, ALT 21, Alkaline Phosphatase 106, Total Creatine Kinase 47, Total Protein 6.2 L, Albumin 2.7 L, Globulin 3.5, Albumin/Globulin Ratio 0.8 L, Triglycerides 95 10/13/23 17:00: Urine Color Yellow, Urine Clarity Cloudy, Urine pH 6.0, Ur Specific Ava 1.030, Urine Protein 100 H, Urine Glucose (UA) Normal, Urine Ketones Negative, Urine Occult Blood 150 H, Urine Nitrite Negative, Urine Bilirubin Negative, Urine Urobilinogen 4 H, Ur Leukocyte Esterase 100 H, Urine RBC 5-10 SEEN, Urine WBC 25-50 SEEN, Ur Squamous Epith Cells 0 SEEN, Urine Bacteria 3+, Hyaline Casts 0-5 SEEN, Coarse Granular Casts 0-5 SEEN, Urine Mucus 2+ Micro: Microbiology 10/13/23 17:15 Mucosa - Nose SARS-CoV-2, Influenza & RSV (PCR) - Final ABG Data ABG results: ABG 10/13/23 17:07 Specimen Type ART Sample Site R Brach pH 7.20 L Bicarbonate Actual 38.4 H Total CO2 41 Base Excess 10 H O2 Saturation 99 O2 % 100.0 ABG pCO2 97.7 H* ABG pO2 186 H Jonah Test Positive Respiration Rate 16 O2 Delivery Device Adult Vent Vent Mode AC Tidal Volume 450.0 POC PEEP 5 Crit Call To/Read Back Yes Blood Gas Notified Whom Le Blood Gas Notified Time 17:09:16 Imaging Radiology Impression Chest X-Ray 10/13/23 17:10 IMPRESSION: Bilateral pleural effusions larger on right than on the left likely with bibasilar atelectasis. Support structures in good position. Electronically Signed: Ismael Donnelly MD at 17:29 EDT , Assessment & Plan Assessment/Plan (1) Acute hypercapnic respiratory failure: PLAN: Plan # Acute hypercapnic respiratory failure in setting of chronic COPD -Patient with pH of 7.2 and pCO2 97.7 -Patient required intubation in ED with plans to admit to ICU -Patient with diffuse wheezing, continue nebs -Diversity Specialist consult -COVID, RSV, flu negative, will check full respiratory panel -Chest x-ray with a possible right lower lobe pneumonia -Continue antibiotics -Sputum culture sent # Hypotension -Unclear etiology, systolic blood pressure 60s on arrival -Bolused with IV fluids -Unclear if infectious cause -Continue IV fluids, hold diuretics, hold nadolol -Levophed ordered as BP still borderline and additional agent to be started for sedation -Continue broad-spectrum antibiotics and await cultures #PRUDENCE with hyperkalemia -Patient with potassium of 5.8 and creatinine 2.14 up from 1.08 -hold spironolactone and Lasix -Patient received insulin and dextrose and was bolused with IV fluids -Repeat BMP after interventions # Cirrhosis with ascites and frequent paracenteses -Will check ammonia, check liver ultrasound -May need paracentesis before discharge -Holding Lasix and spironolactone as above # Chronic macrocytic anemia chronic thrombocytopenia -Suspect secondary to patient's liver disease -Appears to be at baseline -Continue to monitor, supportive care #Type 2 diabetes mellitus -Glucose checks and sliding scale insulin -Hold oral hypoglycemic # History of duodenal ulcers -Seen on EGD earlier this year -IV PPI # Parkinson's -Continue home meds as able, currently intubated and sedated #Hypothyroidism -Continue Synthroid #Chronic BPH with obstruction -Continue home medications #DVT ppx: SCDs Bernarda Ugalde MD Patient had been having hospice discussions however per report patient still full code. Pending progress will likely need to revisit this Charges/Coding Visit Charges Inpatient E&M: 00147 Init Hosp L2
[2023-10-13] MEDS: Propofol 10MG/Ml 1,000 MG/100 ML Bottle 5.1 MG CONT INF (19:04)
[2023-10-13] MEDS: Norepinephrine 8 MG in 0.9% Normal Saline (250mL Bag) 242 ML 9.4 MG CONT INF (19:06)
[2023-10-13] MEDS: Lactulose 20 GM/30 ML UDC PO (20:26)
[2023-10-13] MEDS: Chlorhexidine 15 ML PO (20:26)
[2023-10-13] MEDS: 0.9% Saline Lock 10 ML Syringe IV ×2 (20:26→20:36)
[2023-10-13] MEDS: rifAXIMin 550 MG Tablet PO (20:26)
[2023-10-13] MEDS: 0.9% Normal Saline (1000mL) 1,000 ML 50 ML IV (20:31)
[2023-10-13] MEDS: 0.9% Normal Saline (250mL Bag) 250 ML 15 ML IV (20:31)
--- NOTE | 2023-10-13 21:04 | PCM.RX.CS ---
Consult Antibiotic Management Pharmacy has been consulted to manage selected antibiotic: Vancomycin Type of Intervention Type of Consult: New start Suspected Infection Suspected Infection: Pneumonia Prior Doses of Antibiotics Prior Doses of Antibiotics Received/Current Regimen: Vancomycin 2000 mg IV x 1 given 10/13/23 @ 1835 Microbiology Microbiology: Microbiology 10/13/23 17:15 Mucosa - Nose SARS-CoV-2, Influenza & RSV (PCR) - Final Dosing Weight Weight used for dosin kg Estimated Creatinine Clearance Estimated Creatinine Clearance: ~ 27 Goal Trough Goal Trough: 15-20 mcg/mL Pharmacy Plan for Drug Dosing Pharmacy Plan for Drug Dosing: Vancomycin 2000 mg IV x 1, followed by 750 mg Q24H. Pharmacy Service will continue to monitor and adjust dosing as required. Follow-Up Labs Follow-Up Labs: Trough: Vancomycin Date/Time Labs Ordered Labs to be done on [date and time ordered]: 10/17/23 @ 1830
[2023-10-13 21:06] LABS: Reflex Lactate? Y
[2023-10-13 21:12] LABS: Anion Gap 6 (5-15); BUN 54 mg/dL (7-18); BUN/Creat Ratio 24.8 RATIO (10-20); Chloride 110 mmol/L (98-107); Creatinine, Serum 2.18 mg/dL (0.70-1.30); EST Glomerular Filtration Rate 31 mL/min (>60); Est Glom Filt Rate - Afr Amer 38 mL/min (>60); Estimated Creatinine Clearance 26.77 ml/min; Glucose 122 mg/dL (74-106); Potassium 4.4 mmol/L (3.5-5.1); Sodium Level 147 mmol/L (136-145)
--- NOTE | 2023-10-13 22:39 | EDS_ITS ---
HPI History of Present Illness Chief Complaint: Unresponsive Informant: family and EMS Narrative Narrative: Brought in by EMS from home, daughter currently present on arrival. Reported for altered mental status. History of COPD on chronic oxygenation. History of diabetes. Glucose 130s per EMS. Edition report on EMS arrival states he was hospice however he is full code. Daughter shortly after confirms he did talk again with hospice yesterday and signed up. She states she does not know the conversation. However she states she would want him on a ventilator. He has had increasing cough recently. Chronic oxygenation. Prior similar symptoms: Yes PFSH [facility] Medical History History of echocardiogram Cardiology follow-up encounter Difficulty swallowing Poor historian Gastric reflux Liver disease Anxiety Diabetes Former smoker COPD (chronic obstructive pulmonary disease) Asthma Hyperlipidemia Hypertension Parkinsonian features Home Medications ?Medication ?Instructions ?Recorded ?Last Taken ?Type tamsulosin 0.4 mg capsule 0.8 mg PO QHS prostate 06/26/15 06/25/15 History carbidopa 25 mg-levodopa 100 mg 2 tab PO TIDAC parkinsons 09/11/15 Unknown History tablet empagliflozin 10 mg tablet 10 mg PO DAILY diabetes 01/09/18 Unknown History (Jardiance) levothyroxine 125 mcg tablet 125 mcg PO DAILY THYROID 03/06/22 Unknown History (Levoxyl) ropinirole 2 mg tablet 2 mg PO QHS RESTLESS LEGS 03/06/22 Unknown History trazodone 50 mg tablet 30 mg PO DAILY SLEEP 03/06/22 Unknown History acetaminophen 325 mg tablet 650 mg (2 x 325 mg) PO Q6H PRN PRN 03/13/22 Unknown Rx (Tylenol) Pain 1-10 Or Fever >100.7 #0 tabs insulin lispro 100 unit/mL See Protocol subcut ACHS diabetes 03/13/22 Unknown Rx subcutaneous pen (Humalog KwikPen #0 mL (U-100) Insulin) gabapentin 100 mg capsule 100 mg PO TID pain 30 days #90 caps 06/03/23 Unknown Rx oxycodone 5 mg capsule 5 mg PO Q6H PRN pain 3 days #12 06/03/23 Unknown Rx caps furosemide 40 mg tablet 40 mg PO BID diuretic 1 month #60 06/25/23 Unknown Rx tabs lactulose 20 gram/30 mL oral 20 g (30 mL) PO BID 1 month #1,800 05/08/24 Unknown Rx solution mL nadolol 20 mg tablet 20 mg PO DAILY 1 month #30 tabs 06/25/23 Unknown Rx pantoprazole 40 mg tablet,delayed 40 mg PO DAILY reflux #30 tabs 06/25/23 Unknown Rx release rifaximin 550 mg tablet (Xifaxan) 550 mg PO BID stools 1 month #60 06/25/23 Unknown Rx tabs spironolactone 50 mg tablet 50 mg PO DAILY diuretic 1 month 06/25/23 Unknown Rx #30 tabs Allergy/AdvReac Type Severity Reaction Status Date / Time aloe vera AdvReac Rash Verified 09/19/23 10:39 diclofenac AdvReac intolerance, Verified 09/19/23 10:39 leg edema Family History Other Cancer Surgical History Hx of hand surgery Social History household members: children housing: apartment Smoking Status: Former smoker ROS ROS ED Review of Systems ROS Unobtainable: due to mental status EXAM Physical Exam Const Vital Signs: 10/13/23 16:48 10/13/23 16:50 10/13/23 16:55 Temperature 97.0 F L Temperature Source Temporal Pulse Rate 138 H Respiratory Rate 16 16 Respiratory Effort Accessory Muscle Use Respiratory Depth Shallow Respiratory Pattern Apnea Blood Pressure 106/57 L Blood Pressure Mean 73 Pulse Ox 98 97 Oxygen Delivery Method Mechanical Ventilator Mechanical Ventilator Fraction of Inspired Oxygen (FIO2) 30 10/13/23 17:04 10/13/23 17:16 10/13/23 17:18 Temperature 97.8 F 987.8 F H Temperature Source Temporal Temporal Pulse Rate 89 96 Respiratory Rate 20 H 20 H Respiratory Effort Respiratory Depth Respiratory Pattern Blood Pressure 63/38 L 68/38 L Blood Pressure Mean 46 48 Pulse Ox 97 97 Oxygen Delivery Method Mechanical Ventilator Mechanical Ventilator Mechanical Ventilator Fraction of Inspired Oxygen (FIO2) 10/13/23 17:28 10/13/23 17:30 10/13/23 17:30 Temperature Temperature Source Pulse Rate 85 102 H 85 Respiratory Rate 18 23 H 18 Respiratory Effort Respiratory Depth Respiratory Pattern Blood Pressure 103/80 Blood Pressure Mean 87 Pulse Ox 97 97 Oxygen Delivery Method Mechanical Ventilator Fraction of Inspired Oxygen (FIO2) 50 10/13/23 18:00 10/13/23 18:38 10/13/23 18:44 Temperature 97.8 F Temperature Source Pulse Rate 78 76 105 H Respiratory Rate 23 H 25 H 20 H Respiratory Effort Respiratory Depth Respiratory Pattern Blood Pressure 91/57 L 86/60 L 102/78 Blood Pressure Mean 68 68 86 Pulse Ox 96 100 100 Oxygen Delivery Method Mechanical Ventilator Mechanical Ventilator Fraction of Inspired Oxygen (FIO2) 10/13/23 18:56 Temperature Temperature Source Pulse Rate 131 H Respiratory Rate 18 Respiratory Effort Respiratory Depth Respiratory Pattern Blood Pressure Blood Pressure Mean Pulse Ox 98 Oxygen Delivery Method Fraction of Inspired Oxygen (FIO2) 40 Constitutional Narrative: Patient obtunded, not responding to sternal rub, GCS 3 HEENT Reports dry mucous membranes normocephalic and atraumatic Mouth ED: Yes dry mucous membranes Mouth: dry mucous membranes Eyes Eyes Narrative: Pinpoint pupils General Eye ED: Yes normal appearance of both eyes Neck no lymphadenopathy and supple General: Negative for tenderness Chest Wall Chest: Negative for tenderness Resp Resp Narrative: Bilateral breath sounds with [id number]. Occasional agonal breathing Cardio regular rhythm and no murmurs Rate: tachycardic Peripheral Pulses: pulses 2+ throughout GI normal to inspection, nondistended, normoactive bowel sounds and non-tender Extremity normal to inspection General Extremety ED: Negative for edema or tenderness General Extremity: Negative for edema Neuro Neuro Narrative: Obtunded Skin no rashes or lesions noted and no wounds MDM MDM MDM Narrative Medical decision making narrative: Interventions / MDM: Differential diagnosis: Encephalopathy, hypercapnia, infectious causes pneumonia, UTI, metabolic Diagnosis considered but do not suspect: N/A My EKG interpretation: Sinus tach to a rate of 133, no ST or T wave changes. Imaging independently reviewed and interpreted by myself: CT brain: No acute process. External documents reviewed: N/A Test considered but not ordered:N/A ED course: Patient obtunded on arrival occasional agonal breathing. GCS 3. Preparations made for intubation performed under RSI with no difficulties. Sepsis labs ordered ABG CT brain. Postintubation chest x-ray with pleural effusions no infiltrates. IV fluids was started. Intubation emergent: Preoxygenation with [id number], RSI using etomidate 20 mg and succinylcholine 80 mg. Glidoscope use direct visualization of the cords. 7.5 tube placed 22 cm at the lips and secured bilateral breath sounds capnography. Secured by respiratory therapy. Postintubation chest x-ray adequate position. ABG pH 7.2 CO2 of 97, O2 of 186. Oxygenation was turned down respiratory rate up to 18 from 16. During workup per nursing blood pressure went down to 60 systolic. Ordered for 30 cc/kg bolus was ordered due to hypotension for possible sepsis. With patient being full code discussed with daughter for central line placement for access and plan for pressors if needed. She agreed. Procedure note: Central line placement. Written consent from daughter risk and benefits discussed. Full sterile drapes, gowns were all used. Preprocedure ultrasound right IJ noted good dilatation. Prepped in normal sterile fashion. Shur-Clens used to prep the neck region. Lidocaine used for local analgesic. Seldinger technique with ultrasound access right IJ with dark blood return. Guidewire advanced, no complications. Skin incision dilatation made. Triple- lumen catheter placed 15 cm at the neck line. Secured. All lines flushed. Sterile dressing was placed. Post line chest x-ray noting continue pleural effusions however now concerning for right-sided infiltrates. Patient post x-rays concerning for new findings of infiltrates. Lactic acid 2.0. He was covered with Zosyn and vancomycin for broad coverage for pneumonia. Urine also notes leukocytes and 25-50 WBCs. Blood and urine cultures are pending. Labs also did note PRUDENCE with creatinine of 2.1 up from 1 previously. Potassium was 5.8 no EKG changes. Was given insulin and glucose. Patient fluid responsive blood pressure no pressure started in the ED. I discussed with hospitalist Dr. Ugalde for admission to ICU. Re-evaluation: Critical Disposition discussed with patient/family/significant other: Daughter Case discussed with consulting clinician: Hospitalist This note was generated with [employer] dictation software. It may contain incorrect words, spelling, and punctuation that were not noted in checking the note before signing. Lab Data Attestation: I reviewed the patient's lab results. Labs: Laboratory Results - last 24 hr 10/13/23 10/13/23 16:58 17:00 WBC 5.9 RBC 2.90 L Hgb 9.7 L Hct 32.5 L MCV 112.1 H MCH 33.4 H MCHC 29.8 L RDW Std Deviation 61.9 H RDW Coeff of Jean Claude 15.1 H Plt Count 80 L MPV 9.0 Immature Gran % (Auto) 0.800 Neut % (Auto) 73.8 H Lymph % (Auto) 10.6 L [place] % (Auto) 14.2 H Eos % (Auto) 0.3 Baso % (Auto) 0.3 Absolute Neuts (auto) 4.4 Absolute Lymphs (auto) 0.63 L Nucleated RBC % 0 PT 16.5 H INR 1.3 APTT 32.5 Sodium 146 H Potassium 5.8 H Chloride 107 Carbon Dioxide 40.0 H Anion Gap -1 L BUN 55 H Creatinine 2.14 H Estim Creat Clear Calc 27.05 Est GFR (MDRD) Af Amer 38 L Est GFR (MDRD) Non-Af 32 L BUN/Creatinine Ratio 25.7 H Glucose 130 H Lactic Acid 2.0 Calcium 8.6 Total Bilirubin 2.20 H AST 24 ALT 21 Alkaline Phosphatase 106 Total Creatine Kinase 47 Total Protein 6.2 L Albumin 2.7 L Globulin 3.5 Albumin/Globulin Ratio 0.8 L Triglycerides 95 Urine Color Yellow Urine Clarity Cloudy Urine pH 6.0 Ur Specific Phillips 1.030 Urine Protein 100 H Urine Glucose (UA) Normal Urine Ketones Negative Urine Occult Blood 150 H Urine Nitrite Negative Urine Bilirubin Negative Urine Urobilinogen 4 H Ur Leukocyte Esterase 100 H Urine RBC 5-10 SEEN Urine WBC 25-50 SEEN Ur Squamous Epith Cells 0 SEEN Urine Bacteria 3+ Hyaline Casts 0-5 SEEN Coarse Granular Casts 0-5 SEEN Urine Mucus 2+ ABG Data ABG results: ABG 10/13/23 17:07 Specimen Type ART Sample Site R Brach pH 7.20 L Bicarbonate Actual 38.4 H Total CO2 41 Base Excess 10 H O2 Saturation 99 O2 % 100.0 ABG pCO2 97.7 H* ABG pO2 186 H Jonah Test Positive Respiration Rate 16 O2 Delivery Device Adult Vent Vent Mode AC Tidal Volume 450.0 POC PEEP 5 Crit Call To/Read Back Yes Blood Gas Notified Whom Le Blood Gas Notified Time 17:09:16 Radiography Diagnostic Testing: Clinical Impression(s) from Imaging Studies Brain CT 10/13/23 16:56 IMPRESSION: 1. No acute intracranial abnormality. There has been no significant change from the reference exam. 2. Mild senescent change with small vessel ischemia. Electronically Signed: Ismael Donnelly MD at 19:05 EDT , Chest X-Ray 10/13/23 17:10 IMPRESSION: Bilateral pleural effusions larger on right than on the left likely with bibasilar atelectasis. Support structures in good position. Electronically Signed: Ismael Donnelly MD at 17:29 EDT , Chest X-Ray 10/13/23 18:02 IMPRESSION: Right-sided effusion with right lower lobe pneumonia. Support structures in good position. Electronically Signed: Ismael Donnelly MD at 18:54 EDT , Critical Care Time Critical Care Time: Yes Critical care time (excluding procedures): 30-74 minutes, Discussing w/Patient &/or Family/Registered Respiratory Therapist, Discussing w/Consultants, Arranging Admission or Transfer, Performing Direct Patient Care at Bedside and - (55 minutes) Discharge Plan Dx/Rx/DC Orders Clinical Impression: Acute hypercapnic respiratory failure, Diabetes mellitus, COPD (chronic obstructive pulmonary disease), PRUDENCE (acute kidney injury), Hyperkalemia Disposition Disposition: Acute Care Hospital [facility] Discharge Date/Time: 10/13/23 19:35
[2023-10-13 23:13] LABS: Lactic Acid 7.4 mmol/L (0.4-1.9)
[2023-10-14] VITALS (56 sets, daily range): BP systolic 84–147; BP diastolic 39–78; PULSE 64–106; RESP 14–22; TEMP 36.2–37.7; O2SAT 94–100; BMI 28.2
--- NOTE | 2023-10-14 | FLU_PTH ---
PATIENT: RICHARD PARRY LOC: ICU U#:[id number] AGE/SX: 78/M ROOM: ICU02 RE10/13/[address]: Dr. Rohith Vann MD : 1945 BED: 1 DIS: 10/24/2023 SPEC #: [id number] RECD: 10/14/23 14:57 STATUS: WOODY REQ #: [id number] DONNIE: 10/14/23 00:[address]: Edis Silveira DEPT: CYTOLOGY RECD BY: April Fermin ENTERED: 10/15/23 11:33 SP TYPE: Fluid OTHR DR: MD Dr. Jelani Boudreaux MD Dr. Derek Brown, DO Dr. David P Myers, MD Dr. Edward Matheis, MD Dr. Gautam Baskaran, MD Dr. Yordanos Habtegebriel, MD Dr. Hemant Dand, MD Dr. Jose Ochoa, MD Dr. Kimber Foust, MD Dr. Lamia Aljundi, MD Dr. Pritam Ghosh, MD Dr. Pavan Irukulla, MD Dr. Paige Pierce, MD Dr. Saad Farooqi, MD Dr. Tai Chi Kwok, MD Dr. Vikram Anand, MD Dr. William Haden, MD Tissues: PARACENTESIS FLUID Procedures: Special Stain Group II Surgery Specimen Level IV Cytospin Fluid HEADER OPERATION: Paracentesis fluid PRE-OP DIAGNOSIS: Ascites TISSUE SUBMITTED: Paracentesis fluid for cytology DIAGNOSIS CYTOLOGY Paracentesis fluid for cytology (cytospin and cellblock): Negative for malignant cells. / 10/16/2023 CYTOLOGY STUDY Slides are reviewed. CYTOLOGY GROSS Received is 90 ml of hazy-yellow fluid labeled with the patient's name and and designated per the requisition as Paracentesis fluid. Submitted for cytology preparation including cell block. Mr 10/15/2023 TC:5 CPT: 12530,05740
[2023-10-14] MEDS: Propofol 10MG/Ml 1,000 MG/100 ML Bottle 20.4 MG CONT INF (00:14)
[2023-10-14] MEDS: 0.9% Saline Lock 10 ML Syringe IV (00:14)
[2023-10-14 00:25] LABS: Bedside Glucose 134 mg/dL (74-106)
[2023-10-14 02:11] LABS: Absolute Lymphocyte Count 0.33 X10^3/uL (0.83-4.51); Absolute Neutrophil Count 5.2 X10^3/uL (2.0-7.7); Basophil# 0.01 X10^3/uL; Basophil% 0.2 % (0-1); Hematocrit 25.7 % (40-54); Hemoglobin 8.3 g/dL (13.0-16.5); Lymphocyte # 0.33 X10^3/ul (0.83-4.51); Lymphocyte % 5.5 % (19-41); Mean Corp Hgb Conc 32.3 g/dL (32-36); Mean Corpuscular Hgb 33.9 pg (27.0-32.0); Mean Corpuscular Volume 104.9 fL (80-94); Mean Platelet Vol. 9.8 fl (6.2-12.0); Monocyte# 0.39 X10^3/uL; Monocyte% 6.6 % (0-10); NRBC Flagged by Analyzer 0.3 % (0-5); Neutrophil # 5.18 X10^3/uL (2.7-7.7); POSITIVE COUNT YES; POSITIVE DIFFERENTIAL YES; Platelet Count 51 K/mm3 (150-450); RBC Distribution Width SD 57.1 fl (35.1-43.9); Red Blood Count 2.45 M/mm3 (4.6-6.2)
[2023-10-14 02:18] LABS: International Normalized Ratio 1.5; Prothrombin Time (Protime)PT. 17.8 SECONDS (11.7-14.9)
[2023-10-14 02:26] LABS: ALB/GLOB Ratio 0.8 RATIO (0.9-2.4); AST(SGOT) 25 U/L (15-37); Alanine Aminotransfer ALT/SGPT 21 U/L (16-61); Albumin, Serum 2.4 g/dL (3.2-5.0); Alkaline Phosphatase 90 U/L (45-117); Anion Gap 9 (5-15); BUN 56 mg/dL (7-18); BUN/Creat Ratio 26.3 RATIO (10-20); Calcium,Total 8.5 mg/dL (8.5-10.1); Chloride 109 mmol/L (98-107); Creatinine, Serum 2.13 mg/dL (0.70-1.30); EST Glomerular Filtration Rate 32 mL/min (>60); Est Glom Filt Rate - Afr Amer 39 mL/min (>60); Globulin 3.1 g/dL (2.2-4.2); Glucose 163 mg/dL (74-106); Magnesium 2.1 mg/dL (1.6-2.6); Potassium 4.1 mmol/L (3.5-5.1); Protein, Total 5.5 g/dL (6.4-8.2); Sodium Level 147 mmol/L (136-145)
[2023-10-14] MEDS: fentaNYL drip 100 ML 10 MCG CONT INF (02:34)
[2023-10-14 02:47] LABS: Lactic Acid 5.5 mmol/L (0.4-1.9)
[2023-10-14] MEDS: Piperacil/Tazobactam 3.375 GM in 0.9% Normal Saline (50mL MB+) 50 ML IV ×3 (05:04→20:47)
[2023-10-14] MEDS: Carbidopa/Levodopa 25/100 Tablet PO ×3 (05:23→15:57)
[2023-10-14] MEDS: Levothyroxine 125 MCG Tablet PO (05:23)
[2023-10-14] MEDS: Propofol 10MG/Ml 1,000 MG/100 ML Bottle 15.3 MG CONT INF (05:23)
[2023-10-14] MEDS: CHLORHEXIDINE GLUC 2% CLOTH 1 EACH TOWELETTE TOPICAL (05:28)
[2023-10-14 05:42] LABS: Bedside Glucose 128 mg/dL (74-106)
[2023-10-14] MEDS: TITRATION PARAMETER CHANGE 1 EACH IV (05:57)
[2023-10-14 06:10] LABS: Reflex Lactate? Y
[2023-10-14] MEDS: Ipratropium/Albuterol Sulfate 3 ML AMPUL.NEB INHALATION ×3 (06:58→19:05)
[2023-10-14] MEDS: Chlorhexidine 15 ML PO ×2 (08:10→20:44)
[2023-10-14] MEDS: rifAXIMin 550 MG Tablet PO ×2 (08:10→20:45)
[2023-10-14] MEDS: Lactulose 20 GM/30 ML UDC PO ×2 (08:10→20:44)
[2023-10-14] MEDS: Pantoprazole Sodium 40 MG in 0.9% Normal Saline (100mL MB+) 100 ML 330 MG IV (09:17)
[2023-10-14] MEDS: Norepinephrine 8 MG in 0.9% Normal Saline (250mL Bag) 242 ML 13.1 MG CONT INF (09:34)
[2023-10-14] MEDS: Propofol 10MG/Ml 1,000 MG/100 ML Bottle 9.5 MG CONT INF (10:11)
--- NOTE | 2023-10-14 11:20 | CASEMGMT ---
Addendum entered by Nancy Cyr 10/15/23 15:17: Late entry for 10/14/23. Per daughter patient was active with hospice and she revoked hospice as patient is full code and would want further workup. Original Note: RN CM Face to Face with daughterMaryanne, for initial transition planning/care coordination assessment. RN CM introduced self and role at [facility]. Patient lying in bed, resting quietly, intubated and unable to participate in assessment. Daughter willing to participate in assessment and is able to answer all questions appropriately. Care providers, pharmacy, and demographics verified. Strata: 3 PCP: Deangelo Specialists: seble Robles; BRANDIE Mathews Preferred Pharmacy: [facility] Insurance: [email or web address] Prescription Benefit: yes Living Will/HPOA: yes daughter Maryanne Vargas LNOK: daughter Living Arrangements: Patient lives with daughter in a single story home with 2 steps with railing to enter the home. Per daughter patient was independent but did assist with care at times. Transportation: daughter, self DME/HHC: Patient has shower chair, cane, grab bars, walker, wheelchair, MOW, home oxygen through [facility] with portability at 2-3lpm. Patient has been to [facility] in the past. Daughter wishes for patient to return home. Will monitor course of treatment and progress with therapy for disposition needs. Daughter states she has no further needs or concerns at this time. CM to follow for discharge planning needs that may arise. Disposition Plan: TBD, pending course of treatment and progress with therapy. Nancy IVY, RN, CM
--- NOTE | 2023-10-14 11:22 | CON.PCM.CC_ITS ---
Assessment & Plan Assessment/Plan (1) Acute hypercapnic respiratory failure: PLAN: Plan RECOMMENDATIONS: 1. Continue assist-control mode mechanical ventilation. Wean FiO2 and PEEP to maintain saturations at or above 90%. 2. Obtain follow-up ABG. 3. Continue vasopressor support to maintain hemodynamic stability. 4. Continue lactulose and rifaximin. Obtain follow-up ammonia level. 5. Continue empiric antimicrobials. 6. Continue PPI therapy. 7. Consider repeat paracentesis. 8. Goals of care discussion with the patient's family. IMPRESSIONS: 1. Acute combined respiratory failure The patient has a suspected history of COPD of unclear severity. He presented with acute CO2 retention, which required invasive mechanical ventilatory support. Chest imaging demonstrated the presence of bilateral pleural effusions, most likely secondary to decompensated cirrhosis and subsequent hepatic hydrothorax. There is some question about a basilar infiltrates. However, I strongly suspect that this is likely related to compressive atelectasis. Regardless, given the patient's acute decompensation, it is reasonable to continue empiric antibiotics, pending infectious workup. The patient will be continued on scheduled bronchodilators as well. Continue to wean FiO2 and PEEP. Minimize sedation to maintain a RASS of -1 to 1. Plan to repeat spontaneous awakening and breathing trials tomorrow morning. 2. Acute metabolic encephalopathy Clinical concern for underlying decompensated cirrhosis. Plan to repeat ammonia level this morning and continue current medical management with lactulose and rifaximin. Plan to obtain follow-up ABG this morning as well. Minimize sedation as tolerated. 3. Decompensated liver cirrhosis The patient is currently followed by GI on an outpatient basis. Continue lactulose and rifaximin. The patient is likely going to be due for a repeat paracentesis while admitted to the hospital. Orders have been placed accordingly. I am going to gastroenterology to see the patient to provide input regarding long-term goals of care, as I feel that the patient is hospice appropriate. 4. Hypovolemic versus septic shock I suspect that the patient's shock state is likely related to his underlying cirrhosis and third spacing that occurs. He has been initiated on vasopressor support. It would be reasonable to target a systolic pressure at or above 90 mmHg. The patient is also going to be continued on empiric antimicrobials to address for the possibility of underlying pneumonia or SBP. Recommend proceeding with paracentesis. 5. History of anemia/diabetes mellitus/duodenal ulcers/Parkinson's disease/hypothyroidism Complicates care, management, recovery and prognosis. Continue supportive measures as noted above. Recommend ongoing goals of care discussion with the patient's family. Previously, the patient was enrolled in hospice care services. The services were apparently revoked upon admission to the hospital. TIME: 40 minutes of critical care time, independent of procedures, was spent addressing the patient's acute combined respiratory failure, acute metabolic encephalopathy, decompensated liver cirrhosis, hypovolemic versus septic shock, review of all data and collaboration with the care team. HPI Consult Data Date of Consult: 10/14/23 HPI Narrative Reason for Consultation: Respiratory failure HPI Narrative: The patient is an 78-year-old male, with a history as outlined below, who presented to the emergency department via EMS on October 12 with altered mental status. The patient has a known history of cirrhosis and is followed in the GI clinic on an outpatient basis. The patient requires frequent, regular paracenteses. The patient also has a reported history of COPD and Parkinson's disease. The patient last underwent a large-volume paracentesis on October 02 with 5.7 L of fluid removed. According to documentation from his GI provider, the patient has a history of noncompliance with prescribed medical therapy. Of note, according to the patient's family, he was recently placed on hospice care, but his daughter revoked the services upon his admission to the hospital. In speaking with her this morning, she stated that the patient will likely resume hospice care services upon discharge. On presentation to the emergency department, the patient was noted to be afebrile and hemodynamically stable. Laboratory evaluation revealed a normal white blood cell count with baseline, chronic thrombocytopenia. Coagulation profile was notable for an INR of 1.3. Initial ABG demonstrated a pH of 7.2 with a pCO2 of 97 and pO2 of 186. Chemistry profile was notable for a sodium of 146, potassium of 5.8, bicarbonate of 40 and creatinine of 2.14. Lactate was elevated at 7.4. Total bili was increased to 2.2. Urine analysis was notable for leukocyte esterase and 3+ urine bacteria. Blood, urine and sputum cultures were collected. Respiratory viral panel was negative. Liver ultrasound demonstrated ascites. CT head revealed no acute intracranial pathology. In light of the patient's presenting mental status, he was urgently intubated. Follow-up chest imaging demonstrated bilateral pleural effusions. The patient was subsequently transferred to the medical intensive care unit for further management. The patient is currently requiring Levophed at 5 mcg/min to maintain hemodynamic stability. He remains on lactulose, rifaximin and empiric antimicrobials. [facility] Medical History History of echocardiogram Cardiology follow-up encounter Difficulty swallowing Poor historian Gastric reflux Liver disease Anxiety Diabetes Former smoker COPD (chronic obstructive pulmonary disease) Asthma Hyperlipidemia Hypertension Parkinsonian features Home Medications ?Medication ?Instructions ?Recorded ?Last Taken ?Type tamsulosin 0.4 mg capsule 0.8 mg PO QHS prostate 06/26/15 06/25/15 History carbidopa 25 mg-levodopa 100 mg 2 tab PO TIDAC parkinsons 09/11/15 Unknown History tablet empagliflozin 10 mg tablet 10 mg PO DAILY diabetes 01/09/18 Unknown History (Jardiance) levothyroxine 125 mcg tablet 125 mcg PO DAILY THYROID 03/06/22 Unknown History (Levoxyl) ropinirole 2 mg tablet 2 mg PO QHS RESTLESS LEGS 03/06/22 Unknown History trazodone 50 mg tablet 30 mg PO DAILY SLEEP 03/06/22 Unknown History acetaminophen 325 mg tablet 650 mg (2 x 325 mg) PO Q6H PRN PRN 03/13/22 Unknown Rx (Tylenol) Pain 1-10 Or Fever >100.7 #0 tabs insulin lispro 100 unit/mL See Protocol subcut ACHS diabetes 03/13/22 Unknown Rx subcutaneous pen (Humalog KwikPen #0 mL (U-100) Insulin) gabapentin 100 mg capsule 100 mg PO TID pain 30 days #90 caps 06/03/23 Unknown Rx oxycodone 5 mg capsule 5 mg PO Q6H PRN pain 3 days #12 06/03/23 Unknown Rx caps furosemide 40 mg tablet 40 mg PO BID diuretic 1 month #60 06/25/23 Unknown Rx tabs lactulose 20 gram/30 mL oral 20 g (30 mL) PO BID 1 month #1,800 06/25/23 Unknown Rx solution mL nadolol 20 mg tablet 20 mg PO DAILY 1 month #30 tabs 06/25/23 Unknown Rx pantoprazole 40 mg tablet,delayed 40 mg PO DAILY reflux #30 tabs 06/25/23 Unknown Rx release rifaximin 550 mg tablet (Xifaxan) 550 mg PO BID stools 1 month #60 06/25/23 Unknown Rx tabs spironolactone 50 mg tablet 50 mg PO DAILY diuretic 1 month 06/25/23 Unknown Rx #30 tabs Allergy/AdvReac Type Severity Reaction Status Date / Time roseann jeffersona AdvReac Rash Verified 09/19/23 10:39 diclofenac AdvReac intolerance, Verified 09/19/23 10:39 leg edema Family History Other Cancer Surgical History Hx of hand surgery Social History household members: children housing: apartment Smoking Status: Former smoker ROS Review of Systems ROS Unobtainable: due to endotracheal tube and due to mental status Physical Exam Const Constitutional Narrative: Intubated, sedated and mechanically ventilated. Jaundiced in appearance. HEENT normocephalic and head/scalp atraumatic Mouth: endotracheal tube in place Eyes PERRL Neck supple General: trachea midline Chest inspection of chest normal Resp normal respiratory effort Auscultation: diminished lung sounds Cardio regular rate and regular rhythm GI soft to palpation and non-tender Inspection: abdominal distention Palpation: ascites Extremity General Extremity: edema; Negative for clubbing Skin no rashes or lesions noted Neuro Sensorium / Orientation: sedated on vent Lab / Micro Data 10/14/23 02:00 10/14/23 02:00 Labs: Laboratory Results - last 24 hr 10/13/23 16:58: WBC 5.9, RBC 2.90 L, Hgb 9.7 L, Hct 32.5 L, MCV 112.1 H, MCH 33.4 H, MCHC 29.8 L, RDW Std Deviation 61.9 H, RDW Coeff of Jean Claude 15.1 H, Plt Count 80 L, MPV 9.0, Immature Gran % (Auto) 0.800, Neut % (Auto) 73.8 H, Lymph % (Auto) 10.6 L, [place] % (Auto) 14.2 H, Eos % (Auto) 0.3, Baso % (Auto) 0.3, Absolute Neuts (auto) 4.4, Absolute Lymphs (auto) 0.63 L, Nucleated RBC % 0, PT 16.5 H, INR 1.3, APTT 32.5, Sodium 146 H, Potassium 5.8 H, Chloride 107, Carbon Dioxide 40.0 H, Anion Gap -1 L, BUN 55 H, Creatinine 2.14 H, Estim Creat Clear Calc 27.05, Est GFR (MDRD) Af Amer 38 L, Est GFR (MDRD) Non-Af 32 L, B UN/Creatinine Ratio 25.7 H, Glucose 130 H, Lactic Acid 2.0, Calcium 8.6, Total Bilirubin 2.20 H, AST 24, ALT 21, Alkaline Phosphatase 106, Total Creatine Kinase 47, Total Protein 6.2 L, Albumin 2.7 L, Globulin 3.5, Albumin/Globulin Ratio 0.8 L, Triglycerides 95 10/13/23 17:00: Urine Color Yellow, Urine Clarity Cloudy, Urine pH 6.0, Ur Specific [place] 1.030, Urine Protein 100 H, Urine Glucose (UA) Normal, Urine Ketones Negative, Urine Occult Blood 150 H, Urine Nitrite Negative, Urine Bilirubin Negative, Urine Urobilinogen 4 H, Ur Leukocyte Esterase 100 H, Urine RBC 5-10 SEEN, Urine WBC 25-50 SEEN, Ur Squamous Epith Cells 0 SEEN, Urine Bacteria 3+, Hyaline Casts 0-5 SEEN, Coarse Granular Casts 0-5 SEEN, Urine Mucus 2+ 10/13/23 20:45: Sodium 147 H, Potassium 4.4, Chloride 110 H, Carbon Dioxide 31.0, Anion Gap 6, BUN 54 H, Creatinine 2.18 H, Estim Creat Clear Calc 26.77, E st GFR (MDRD) Af Amer 38 L, Est GFR (MDRD) Non-Af 31 L, BUN/Creatinine Ratio 24.8 H, Glucose 122 H, Calcium 8.0 L, Ammonia 76.0 H 10/13/23 22:20: Lactic Acid 7.4 H* 10/14/23 00:06: POC Glucose 134 H 10/14/23 02:00: WBC 6.0, RBC 2.45 L, Hgb 8.3 L, Hct 25.7 L, MCV 104.9 H D, MCH 33.9 H, MCHC 32.3 D, RDW Std Deviation 57.1 H, RDW Coeff of Jean Claude 15.0 H, Plt Count 51 L, MPV 9.8, Immature Gran % (Auto) 0.700, Neut % (Auto) 87.0 H, Lymph % (Auto) 5.5 L, [place] % (Auto) 6.6, Eos % (Auto) 0.0, Baso % (Auto) 0.2, Absolute Neuts (auto) 5.2, Absolute Lymphs (auto) 0.33 L, Nucleated RBC % 0.3, PT 17.8 H, INR 1.5, Sodium 147 H, Potassium 4.1, Chloride 109 H, Carbon Dioxide 29.0, Anion Gap 9, BUN 56 H, Creatinine 2.13 H, Estim Creat Clear Calc 27.40, Est GFR (MDRD) Af Amer 39 L, Est GFR (MDRD) Non-Af 32 L, BUN/Creatinine Ratio 26.3 H, Glucose 163 H, Lactic Acid 5.5 H*, Calcium 8.5, Magnesium 2.1, Total Bilirubin 3.10 H, AST 25, ALT 21, Alkaline Phosphatase 90, Total Protein 5.5 L, Albumin 2.4 L, Globulin 3.1, Albumin/Globulin Ratio 0.8 L 10/14/23 05:22: POC Glucose 128 H Micro: Microbiology 10/13/23 20:57 Mucosa - Nasopharyngeal Respiratory Panel (PCR) - Final 10/13/23 17:15 Mucosa - Nose SARS-CoV-2, Influenza & RSV (PCR) - Final ABG Data ABG results: ABG 10/13/23 17:07 Specimen Type ART Sample Site R Brach pH 7.20 L Bicarbonate Actual 38.4 H Total CO2 41 Base Excess 10 H O2 Saturation 99 O2 % 100.0 ABG pCO2 97.7 H* ABG pO2 186 H Jonah Test Positive Respiration Rate 16 O2 Delivery Device Adult Vent Vent Mode AC Tidal Volume 450.0 POC PEEP 5 Crit Call To/Read Back Yes Blood Gas Notified Whom Le Blood Gas Notified Time 17:09:16 Imaging Radiology Impression Liver Ultrasound 10/13/23 06:00 IMPRESSION: Ascites. Electronically Signed: Manuelito Mathews MD at 9:46 EDT , Brain CT 10/13/23 16:56 IMPRESSION: 1. No acute intracranial abnormality. There has been no significant change from the reference exam. 2. Mild senescent change with small vessel ischemia. Electronically Signed: Ismael Donnelly MD at 19:05 EDT , Chest X-Ray 10/13/23 17:10 IMPRESSION: Bilateral pleural effusions larger on right than on the left likely with bibasilar atelectasis. Support structures in good position. Electronically Signed: Ismael Donnelly MD at 17:29 EDT , Chest X-Ray 10/13/23 18:02 IMPRESSION: Right-sided effusion with right lower lobe pneumonia. Support structures in good position. Electronically Signed: Ismael Donnelly MD at 18:54 EDT , Charges/Coding Procedures Hospitalists Procedures: 85062 Critical Care 1st Hr
[2023-10-14 11:56] LABS: Allen Test Positive; Base Excess 10 mmol/L (-2 to +2); Bicarbonate 30.3 mmol/L (22-26); Blood Gas Specimen Type ART; Mode AC; O2 Delivery Device Adult Vent; PEEP 5; PO2 44 mmHG (75-100); RR 18; SITE L Brach; SO2 90 % (95-99); Total Carbon Dioxide 31 mmol/L; pCO2 27.3 mmHg (35-45); pH 7.65 (7.35-7.45)
[2023-10-14 12:01] LABS: Bedside Glucose 157 mg/dL (74-106)
[2023-10-14] MEDS: fentaNYL drip 100 ML 2.5 MCG CONT INF (13:23)
[2023-10-14] MEDS: Lidocaine 2% (20 ml mdv) 20 ML Vial INFILT (13:57)
--- NOTE | 2023-10-14 14:43 | PN.HOSP_ITS ---
Reason for Visit Reason for Visit: Diagnoses Acute respiratory failure with hypercapnia (10/13/23) Subjective Subjective Patient was seen and examined today, he is sedated and on the ventilator. He is currently on pressor agents to maintain adequate blood pressure. Objective Data Objective Data Vital Signs: Vital Signs Temp Pulse Resp BP Pulse Ox O2 Del Method FiO2 99.3 F H 96 14 84/45 L 98 Mechanical Ventilator 10/14/23 14:17 10/14/23 14:17 10/14/23 14:17 10/14/23 14:17 10/14/23 14:00 10/14/23 14:17 10/14/23 14:17 Oxygen Delivery Method Mechanical Ventilator Weight: 79.4 kg Body Mass Index (BMI) 28.2 Intake & Output: Intake and Output for Last 24 Hours 10/12/23 10/13/23 10/14/23 23:59 23:59 23:59 Intake Total 3167.57 / 3216.77 1259.18 / 1259.18 Output Total 5875 / 5875 Balance 3167.57 / 3201.77 -4615.82 / -4615.82 Lab / Micro Data 10/14/23 02:00 10/14/23 02:00 Labs: Laboratory Results - last 24 hr 10/13/23 16:58: WBC 5.9, RBC 2.90 L, Hgb 9.7 L, Hct 32.5 L, MCV 112.1 H, MCH 33.4 H, MCHC 29.8 L, RDW Std Deviation 61.9 H, RDW Coeff of Jean Claude 15.1 H, Plt Count 80 L, MPV 9.0, Immature Gran % (Auto) 0.800, Neut % (Auto) 73.8 H, Lymph % (Auto) 10.6 L, [place] % (Auto) 14.2 H, Eos % (Auto) 0.3, Baso % (Auto) 0.3, Absolute Neuts (auto) 4.4, Absolute Lymphs (auto) 0.63 L, Nucleated RBC % 0, PT 16.5 H, INR 1.3, APTT 32.5, Sodium 146 H, Potassium 5.8 H, Chloride 107, Carbon Dioxide 40.0 H, Anion Gap -1 L, BUN 55 H, Creatinine 2.14 H, Estim Creat Clear Calc 27.05, Est GFR (MDRD) Af Amer 38 L, Est GFR (MDRD) Non-Af 32 L, B UN/Creatinine Ratio 25.7 H, Glucose 130 H, Lactic Acid 2.0, Calcium 8.6, Total Bilirubin 2.20 H, AST 24, ALT 21, Alkaline Phosphatase 106, Total Creatine Kinase 47, Total Protein 6.2 L, Albumin 2.7 L, Globulin 3.5, Albumin/Globulin Ratio 0.8 L, Triglycerides 95 10/13/23 17:00: Urine Color Yellow, Urine Clarity Cloudy, Urine pH 6.0, Ur Specific [place] 1.030, Urine Protein 100 H, Urine Glucose (UA) Normal, Urine Ketones Negative, Urine Occult Blood 150 H, Urine Nitrite Negative, Urine Bilirubin Negative, Urine Urobilinogen 4 H, Ur Leukocyte Esterase 100 H, Urine RBC 5-10 SEEN, Urine WBC 25-50 SEEN, Ur Squamous Epith Cells 0 SEEN, Urine Bacteria 3+, Hyaline Casts 0-5 SEEN, Coarse Granular Casts 0-5 SEEN, Urine Mucus 2+ 10/13/23 20:45: Sodium 147 H, Potassium 4.4, Chloride 110 H, Carbon Dioxide 31.0, Anion Gap 6, BUN 54 H, Creatinine 2.18 H, Estim Creat Clear Calc 26.77, E st GFR (MDRD) Af Amer 38 L, Est GFR (MDRD) Non-Af 31 L, BUN/Creatinine Ratio 24.8 H, Glucose 122 H, Calcium 8.0 L, Ammonia 76.0 H 10/13/23 22:20: Lactic Acid 7.4 H* 10/14/23 00:06: POC Glucose 134 H 10/14/23 02:00: WBC 6.0, RBC 2.45 L, Hgb 8.3 L, Hct 25.7 L, MCV 104.9 H D, MCH 33.9 H, MCHC 32.3 D, RDW Std Deviation 57.1 H, RDW Coeff of [place] 15.0 H, Plt Count 51 L, MPV 9.8, Immature Gran % (Auto) 0.700, Neut % (Auto) 87.0 H, Lymph % (Auto) 5.5 L, [place] % (Auto) 6.6, Eos % (Auto) 0.0, Baso % (Auto) 0.2, Absolute Neuts (auto) 5.2, Absolute Lymphs (auto) 0.33 L, Nucleated RBC % 0.3, PT 17.8 H, INR 1.5, Sodium 147 H, Potassium 4.1, Chloride 109 H, Carbon Dioxide 29.0, Anion Gap 9, BUN 56 H, Creatinine 2.13 H, Estim Creat Clear Calc 27.40, Est GFR (MDRD) Af Amer 39 L, Est GFR (MDRD) Non-Af 32 L, BUN/Creatinine Ratio 26.3 H, Glucose 163 H, Lactic Acid 5.5 H*, Calcium 8.5, Magnesium 2.1, Total Bilirubin 3.10 H, AST 25, ALT 21, Alkaline Phosphatase 90, Total Protein 5.5 L, Albumin 2.4 L, Globulin 3.1, Albumin/Globulin Ratio 0.8 L 10/14/23 05:22: POC Glucose 128 H 10/14/23 11:35: Ammonia 38.0 H 10/14/23 11:42: POC Glucose 157 H Micro: Microbiology 10/13/23 17:07 Sputum, Induced/Lukens Gram Stain - Final 10/13/23 17:07 Sputum, Induced/Lukens Respiratory Culture - Preliminary Gram negative arthur 10/13/23 20:57 Mucosa - Nasopharyngeal Respiratory Panel (PCR) - Final 10/13/23 17:15 Mucosa - Nose SARS-CoV-2, Influenza & RSV (PCR) - Final ABG Data ABG results: ABG 10/13/23 10/14/23 17:07 11:52 Specimen Type ART ART Sample Site R Brach L Brach pH 7.20 L 7.65 H* Bicarbonate Actual 38.4 H 30.3 H Total CO2 41 31 Base Excess 10 H 10 H O2 Saturation 99 90 L O2 % 100.0 25.0 ABG pCO2 97.7 H* 27.3 L ABG pO2 186 H 44 L Jonah Test Positive Positive Respiration Rate 16 18 O2 Delivery Device Adult Vent Adult Vent Vent Mode AC AC Tidal Volume 450.0 450.0 POC PEEP 5 5 Crit Call To/Read Back Yes Yes Blood Gas Notified Whom Diamond EM Blood Gas Notified Time 17:09:16 11:53:51 Radiography Diagnostic Testing: Radiology Impression Liver Ultrasound 10/13/23 06:00 IMPRESSION: Ascites. Electronically Signed: Manuelito Mathews MD at 9:46 EDT , Brain CT 10/13/23 16:56 IMPRESSION: 1. No acute intracranial abnormality. There has been no significant change from the reference exam. 2. Mild senescent change with small vessel ischemia. Electronically Signed: Ismael Donnelly MD at 19:05 EDT , Chest X-Ray 10/13/23 17:10 IMPRESSION: Bilateral pleural effusions larger on right than on the left likely with bibasilar atelectasis. Support structures in good position. Electronically Signed: Ismael Donnelly MD at 17:29 EDT , Chest X-Ray 10/13/23 18:02 IMPRESSION: Right-sided effusion with right lower lobe pneumonia. Support structures in good position. Electronically Signed: Ismael Donnelly MD at 18:54 EDT , Physical Exam Const Constitutional Narrative: Patient is sedated and on the ventilator, he appears older than his stated age and frail General Appearance: well developed HEENT normocephalic, head/scalp atraumatic and moist oral mucous membranes Eyes conjunctivae normal Neck no JVD and thyroid normal General: trachea midline Resp normal respiratory effort and clear to auscultation bilaterally Auscultation: Negative for rales, rhonchi or wheezes Cardio regular rate, regular rhythm, S1 normal heart sound, S2 normal heart sound, no murmurs, no rub and no gallops GI normal to inspection, nondistended, normoactive bowel sounds, soft to palpation and non-distended Extremity no clubbing, cyanosis or edema Skin Skin Narrative: Patient appears jaundiced Neuro Neuro Narrative: Patient is sedated and on the ventilator Psych Psych Narrative: Patient is sedated and on the ventilator Assessment & Plan Assessment/Plan (1) Respiratory failure requiring intubation: PLAN: Plan 1. Combined respiratory failure-patient remains on the ventilator at this time under sedation, critical care is participating in his care, patient will be continued on bronchodilators and empiric antibiotics, pulse ox will be monitored #2 acute metabolic encephalopathy-secondary to cirrhosis-patient's repeat ammonia level today was 38, he is receiving lactulose and Xifaxan #3 chronic liver cirrhosis with decompensation-patient is scheduled for a paracentesis on Friday as an outpatient, I will plan on the patient having this procedure done if he is still hospitalized at that point #4 distributive shock-patient requires pressor support at this time from relative hypovolemia versus sepsis, he is on empiric antibiotics at this time #5 Parkinson's disease-complicates care, management, recovery, and prognosis, patient is on Sinemet #6 type 2 diabetes-blood sugars will be monitored, sliding scale insulin will be administered as needed #7 hypothyroidism-patient is on Synthroid #8 elevated creatinine-due to hypovolemia and cirrhosis-Labs will be monitored Total clinical time spent by myself addressing the patient's medical issues, reviewing all of his data, and collaborating with patient's care team: 35 minutes Charges/Coding Visit Charges Inpatient E&M: 82795 Subs Hosp L2
--- NOTE | 2023-10-14 15:24 | PCM.OP.PRO ---
Procedure Report Date of Procedure: 10/14/23 Assessment & Plan Assessment/Plan (1) Ascites: QUALIFIERS: Ascites type: other type Qualified Code(s): R18.8 - Other ascites PLAN: PROCEDURE: Ultrasound guided paracentesis ORDERING PROVIDER: Dr. Martinez Srinivasan INDICATION: Male, 78 years old. Ascites. PROVIDER: IVANA Hidalgo TECHNIQUE: The risks, benefits, and alternatives to the procedure were explained to the patient's daughter. The specific risks of bleeding, infection, and damage to bowel were detailed and accepted. Witnessed informed consent was obtained. The abdomen was ultrasonographically surveyed. An appropriate pocket of fluid was identified in the right upper quadrant. The skin was prepped with chlorhexidine and sterile field established. 2% lidocaine was used for local anesthetic. Using ultrasound guidance, the peritoneal cavity was accessed with a 5-[place] paracentesis needle/catheter system. The trocar was removed. A total of 5750 ml of light clear yellow colored fluid was removed from the peritoneal cavity. The catheter was removed and a sterile dressing was applied. The procedure was well tolerated. IMPRESSION: Successful ultrasound-guided paracentesis with right upper quadrant access site. Procedures Radiology Radiology US Procedures: [id number] Paracentesis
[2023-10-14 15:32] LABS: Bedside Glucose 129 mg/dL (74-106)
[2023-10-14] MEDS: Vancomycin HCl 750 MG in 0.9% Normal Saline (250mL Bag) 250 ML 250 MG IV (18:15)
[2023-10-14] MEDS: Tamsulosin HCl 0.4 MG Capsule 0.8 MG PO (20:45)
--- NOTE | 2023-10-14 21:28 | EX.PCM.CON.G ---
HPI Consult Data Date of Consult: 10/14/23 HPI Narrative Reason for Consultation: Liver failure HPI Narrative: RICHARD PARRY, is a 78 M who presents 78 M with history of COPD, Parkinson's, diabetes, cirrhosis with frequent paracenteses who presented to [facility] ED 09/23/2023 with altered mental status. He was found to have a pH of 7.20 and a pCO2 of 97.7, patient was confirmed to be full code and was intubated. Reportedly patient had met with hospice over the past 1 to 2 days however had expressed his desire to be full code per daughter at bedside hospice is revoked. He had been somewhat tired and weak over this past 7 days but this morning was roughly baseline mental status and then he was found in the afternoon to have decreased level of consciousness prompting ED evaluation. His disease is comlicated by pleural effuision, HRS type 2 and ascites. Pt underwent large-volume paracentesis today and had 5.7 liters removed. Recent EGD which showed benign esophagal stenosis, multiple bleeding duodenal ulcer and multiple oozing jejunal ulcers. Pt has multiple comorbitisied iunflusing DM, HTN, CKD, COPD and CHF. His MELD is 24 and He ranges from Child Braden class B to C. Patient not compliant with his medication and states he has misplaced his medications. [facility] Medical History History of echocardiogram Cardiology follow-up encounter Difficulty swallowing Poor historian Gastric reflux Liver disease Anxiety Diabetes Former smoker COPD (chronic obstructive pulmonary disease) Asthma Hyperlipidemia Hypertension Parkinsonian features Home Medications ?Medication ?Instructions ?Recorded ?Last Taken ?Type tamsulosin 0.4 mg capsule 0.8 mg PO QHS prostate 06/26/15 06/25/15 History carbidopa 25 mg-levodopa 100 mg 2 tab PO TIDAC parkinsons 09/11/15 Unknown History tablet empagliflozin 10 mg tablet 10 mg PO DAILY diabetes 01/09/18 Unknown History (Jardiance) levothyroxine 125 mcg tablet 125 mcg PO DAILY THYROID 03/06/22 Unknown History (Levoxyl) ropinirole 2 mg tablet 2 mg PO QHS RESTLESS LEGS 03/06/22 Unknown History trazodone 50 mg tablet 30 mg PO DAILY SLEEP 03/06/22 Unknown History acetaminophen 325 mg tablet 650 mg (2 x 325 mg) PO Q6H PRN PRN 03/13/22 Unknown Rx (Tylenol) Pain 1-10 Or Fever >100.7 #0 tabs insulin lispro 100 unit/mL See Protocol subcut ACHS diabetes 03/13/22 Unknown Rx subcutaneous pen (Humalog KwikPen #0 mL (U-100) Insulin) gabapentin 100 mg capsule 100 mg PO TID pain 30 days #90 caps 06/03/23 Unknown Rx oxycodone 5 mg capsule 5 mg PO Q6H PRN pain 3 days #12 06/03/23 Unknown Rx caps furosemide 40 mg tablet 40 mg PO BID diuretic 1 month #60 06/25/23 Unknown Rx tabs lactulose 20 gram/30 mL oral 20 g (30 mL) PO BID 1 month #1,800 06/25/23 Unknown Rx solution mL nadolol 20 mg tablet 20 mg PO DAILY 1 month #30 tabs 06/25/23 Unknown Rx pantoprazole 40 mg tablet,delayed 40 mg PO DAILY reflux #30 tabs 06/25/23 Unknown Rx release rifaximin 550 mg tablet (Xifaxan) 550 mg PO BID stools 1 month #60 06/25/23 Unknown Rx tabs spironolactone 50 mg tablet 50 mg PO DAILY diuretic 1 month 06/25/23 Unknown Rx #30 tabs Allergy/AdvReac Type Severity Reaction Status Date / Time aloe vera AdvReac Rash Verified 09/19/23 10:39 diclofenac AdvReac intolerance, Verified 09/19/23 10:39 leg edema Family History Other Cancer Surgical History Hx of hand surgery Social History household members: children housing: apartment Smoking Status: Former smoker ROS Review of Systems ROS Unobtainable: due to endotracheal tube and due to mental status Physical Exam Const Constitutional Narrative: Patient is sedated and on the ventilator General Appearance: well developed HEENT normocephalic, head/scalp atraumatic and moist oral mucous membranes Eyes conjunctivae normal Neck no JVD and thyroid normal General: trachea midline Resp normal respiratory effort and clear to auscultation bilaterally Auscultation: Negative for rales, rhonchi or wheezes Cardio regular rate, regular rhythm, S1 normal heart sound, S2 normal heart sound, no murmurs, no rub and no gallops GI normal to inspection, nondistended, normoactive bowel sounds, soft to palpation and non-distended Extremity no clubbing, cyanosis or edema Skin Skin Narrative: Patient appears jaundiced Neuro Neuro Narrative: Patient is sedated and on the ventilator Psych Psych Narrative: Patient is sedated and on the ventilator Lab / Micro Data 10/14/23 02:00 10/14/23 02:00 Labs: Laboratory Results - last 24 hr 10/13/23 22:20: Lactic Acid 7.4 H* 10/14/23 00:06: POC Glucose 134 H 10/14/23 02:00: WBC 6.0, RBC 2.45 L, Hgb 8.3 L, Hct 25.7 L, MCV 104.9 H D, MCH 33.9 H, MCHC 32.3 D, RDW Std Deviation 57.1 H, RDW Coeff of Jean Claude 15.0 H, Plt Count 51 L, MPV 9.8, Immature Gran % (Auto) 0.700, Neut % (Auto) 87.0 H, Lymph % (Auto) 5.5 L, [place] % (Auto) 6.6, Eos % (Auto) 0.0, Baso % (Auto) 0.2, Absolute Neuts (auto) 5.2, Absolute Lymphs (auto) 0.33 L, Nucleated RBC % 0.3, PT 17.8 H, INR 1.5, Sodium 147 H, Potassium 4.1, Chloride 109 H, Carbon Dioxide 29.0, Anion Gap 9, BUN 56 H, Creatinine 2.13 H, Estim Creat Clear Calc 27.40, Est GFR (MDRD) Af Amer 39 L, Est GFR (MDRD) Non-Af 32 L, BUN/Creatinine Ratio 26.3 H, Glucose 163 H, Lactic Acid 5.5 H*, Calcium 8.5, Magnesium 2.1, Total Bilirubin 3.10 H, AST 25, ALT 21, Alkaline Phosphatase 90, Total Protein 5.5 L, Albumin 2.4 L, Globulin 3.1, Albumin/Globulin Ratio 0.8 L 10/14/23 05:22: POC Glucose 128 H 10/14/23 11:35: Ammonia 38.0 H 10/14/23 11:42: POC Glucose 157 H 10/14/23 15:13: POC Glucose 129 H Micro: Microbiology 10/13/23 17:07 Sputum, Induced/Lukens Gram Stain - Final 10/13/23 17:07 Sputum, Induced/Lukens Respiratory Culture - Preliminary Gram negative arthur 10/13/23 20:57 Mucosa - Nasopharyngeal Respiratory Panel (PCR) - Final 10/13/23 17:15 Mucosa - Nose SARS-CoV-2, Influenza & RSV (PCR) - Final ABG Data ABG results: ABG 10/14/23 11:52 Specimen Type ART Sample Site L Brach pH 7.65 H* Bicarbonate Actual 30.3 H Total CO2 31 Base Excess 10 H O2 Saturation 90 L O2 % 25.0 ABG pCO2 27.3 L ABG pO2 44 L Jonah Test Positive Respiration Rate 18 O2 Delivery Device Adult Vent Vent Mode AC Tidal Volume 450.0 POC PEEP 5 Crit Call To/Read Back Yes Blood Gas Notified Whom BROWN Blood Gas Notified Time 11:53:51 Imaging Radiology Impression Liver Ultrasound 10/13/23 06:00 IMPRESSION: Ascites. Electronically Signed: Manuelito Mathews MD at 9:46 EDT , Assessment & Plan Assessment/Plan (1) Acute hypercapnic respiratory failure: PLAN: Plan 78 year-old with multiple comorbidities, including alcoholic, cirrhosis, complicated by ascites, 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 It was intubated due to hypercapnic respiratory failure. Acute hypercapnic respiratory failure in setting of chronic COPD -Patient with pH of 7.2 and pCO2 97.7 -Patient required intubation in ED with plans to admit to ICU -Currently being managed by intent to the services and hospitalist. Hypotension -Unclear etiology, systolic blood pressure 60s on arrival -He he likely has circulatory and cardiac abnormalities as most patients with cirrhosis end up developing. -He is third spacing which is contributing to his hypertension, which can make things very challenging to maintain a map greeted and 65 mmHg -He should have high expansion with albumin at 1.5 to 2.5 mg per kilogram per day -He is already on Christopher presser therapy. Consider treatment for adrenal W with hydrocortisone 200 mg IV divided into four doses -Blood cultures and paracentesis fluid are negative thus far PRUDENCE with hyperkalemia -Patient with potassium of 5.8 and creatinine 2.14 up from 1.08 -hold spironolactone and Lasix -Patient received insulin and dextrose and was bolused with IV fluids -I don't think he is a candidate for any renal replacement therapy. If continues not to respond to pressors then he may benefit from Octreotide and midodrine. NACSELD - His chances this chances of developing a fungal infection doing the admission to 7%. His chances of living 30 days is only 3%o Poor prognosis Charges/Coding Visit Charges Inpatient E&M: 81152 Init Hosp L3
[2023-10-15] VITALS (46 sets, daily range): BP systolic 85–125; BP diastolic 41–76; PULSE 77–115; RESP 14–25; TEMP 37–37.7; O2SAT 91–108; BMI 27.0
[2023-10-15] MEDS: Ipratropium/Albuterol Sulfate 3 ML AMPUL.NEB INHALATION ×4 (01:07→18:54)
[2023-10-15 01:18] LABS: Bedside Glucose 104 mg/dL (74-106)
[2023-10-15] MEDS: Propofol 10MG/Ml 1,000 MG/100 ML Bottle 4.8 MG CONT INF (03:15)
[2023-10-15] MEDS: Levothyroxine 125 MCG Tablet PO (05:02)
[2023-10-15] MEDS: Carbidopa/Levodopa 25/100 Tablet PO ×3 (05:02→16:20)
[2023-10-15] MEDS: Piperacil/Tazobactam 3.375 GM in 0.9% Normal Saline (50mL MB+) 50 ML IV ×3 (05:02→21:58)
[2023-10-15 05:36] LABS: Bedside Glucose 94 mg/dL (74-106)
[2023-10-15] MEDS: Chlorhexidine 15 ML PO ×2 (07:46→19:46)
[2023-10-15] MEDS: Lactulose 20 GM/30 ML UDC PO (07:47)
[2023-10-15] MEDS: CHLORHEXIDINE GLUC 2% CLOTH 1 EACH TOWELETTE TOPICAL (07:47)
[2023-10-15] MEDS: rifAXIMin 550 MG Tablet PO (07:48)
--- NOTE | 2023-10-15 10:01 | PN.CC_ITS ---
Assessment & Plan Assessment/Plan (1) Acute hypercapnic respiratory failure: PLAN: Plan RECOMMENDATIONS: 1. Continue assist-control mode mechanical ventilation. Wean FiO2 and PEEP to maintain saturations at or above 90%. 2. Continue vasopressor support to maintain hemodynamic stability. 3. Continue lactulose and rifaximin. 4. Continue empiric antimicrobials. 5. Continue PPI therapy. 6. Goals of care discussion with the patient's family. IMPRESSIONS: 1. Acute combined respiratory failure The patient has a suspected history of COPD of unclear severity. He presented with acute CO2 retention, which required invasive mechanical ventilatory support. Chest imaging demonstrated the presence of bilateral pleural effusions, most likely secondary to decompensated cirrhosis and subsequent hepatic hydrothorax. There is some question about a basilar infiltrates. However, I strongly suspect that this is likely related to compressive atelectasis. However, the patient's sputum culture is demonstrating growth of gram-negative rods. Therefore, the patient will be maintained on antimicrobials and scheduled bronchodilators. Continue to wean FiO2 and PEEP. Minimize sedation to maintain a RASS of -1 to 1. Plan to repeat spontaneous awakening and breathing trials tomorrow morning. 2. Acute metabolic encephalopathy Clinical concern for underlying decompensated cirrhosis. Continue current medical management with lactulose and rifaximin. Minimize sedation as tolerated. 3. Decompensated liver cirrhosis The patient is currently followed by GI on an outpatient basis. Continue lactulose and rifaximin. He is now status post repeat paracentesis. Remainder of care per gastroenterology recommendations. The patient's overall prognosis is quite poor and I feel that he is hospice appropriate. 4. Hypovolemic versus septic shock I suspect that the patient's shock state is likely related to his underlying cirrhosis and third spacing that occurs. In addition, the patient likely has gram-negative pneumonia. He has been initiated on appropriate vasopressor support, which will be continued to target a systolic blood pressure at or above 90 mmHg. 5. History of anemia/diabetes mellitus/duodenal ulcers/Parkinson's disease/hypothyroidism Complicates care, management, recovery and prognosis. Continue supportive measures as noted above. Recommend ongoing goals of care discussion with the patient's family. Previously, the patient was enrolled in hospice care services. The services were apparently revoked upon admission to the hospital. TIME: 34 minutes of critical care time, independent of procedures, was spent addressing the patient's acute combined respiratory failure, acute metabolic encephalopathy, decompensated liver cirrhosis, hypovolemic versus septic shock, review of all data and collaboration with the care team. Subjective Subjective The patient was seen and examined at the bedside this morning. Events from the last 24 hours have been reviewed. The patient currently has a low-grade fever and remains on Levophed at 5 mcg/min to maintain hemodynamic stability. The patient remains on assist-control mode mechanical ventilation with an FiO2 requirement of 25% and PEEP of 5. He once again failed his spontaneous breathing trial this morning. The patient remains sedated on fentanyl and propofol. The patient underwent successful ultrasound-guided paracentesis yesterday with 5.7 L of fluid removed. Objective Data Objective Data The patient's most recent lab work, culture data and imaging studies have all been personally reviewed. Preliminary sputum culture was positive for 2+ gram- negative rods. Vital Signs: Vital Signs Temp Pulse Resp BP Pulse Ox O2 Del Method FiO2 99.8 F H 98 14 122/61 H 100 Mechanical Ventilator 25 10/15/23 08:00 10/15/23 09:36 10/15/23 09:36 10/15/23 09:15 10/15/23 09:36 10/15/23 09:00 10/15/23 09:00 Oxygen Delivery Method Mechanical Ventilator Weight: 167 lb 15.876 oz Body Mass Index (BMI) 27.0 Intake & Output: Intake and Output for Last 24 Hours 10/13/23 10/14/23 10/15/23 23:59 23:59 23:59 Intake Total 3167.57 / 3216.77 2810.15 / 2824.45 400.65 / 400.65 Output Total 5875 / 5950 175 / 175 Balance 3167.57 / 3201.77 -3064.85 / -3125.55 225.65 / 225.65 Lab / Micro Data Attestation: I reviewed the patient's lab results. 10/14/23 02:00 10/14/23 02:00 Labs: Laboratory Results - last 24 hr 10/14/23 11:35: Ammonia 38.0 H 10/14/23 11:42: POC Glucose 157 H 10/14/23 15:13: POC Glucose 129 H 10/15/23 00:52: POC Glucose 104 10/15/23 05:08: POC Glucose 94 Micro: Microbiology 10/13/23 17:07 Sputum, Induced/Lukens Gram Stain - Final 10/13/23 17:07 Sputum, Induced/Lukens Respiratory Culture - Preliminary Gram negative arthur 10/13/23 20:57 Mucosa - Nasopharyngeal Respiratory Panel (PCR) - Final 10/13/23 17:15 Mucosa - Nose SARS-CoV-2, Influenza & RSV (PCR) - Final ABG Data ABG results: ABG 10/14/23 11:52 Specimen Type ART Sample Site L Brach pH 7.65 H* Bicarbonate Actual 30.3 H Total CO2 31 Base Excess 10 H O2 Saturation 90 L O2 % 25.0 ABG pCO2 27.3 L ABG pO2 44 L Jonah Test Positive Respiration Rate 18 O2 Delivery Device Adult Vent Vent Mode AC Tidal Volume 450.0 POC PEEP 5 Crit Call To/Read Back Yes Blood Gas Notified Whom BROWN Blood Gas Notified Time 11:53:51 Physical Exam Const Constitutional Narrative: Intubated, sedated and mechanically ventilated. Jaundiced in appearance. HEENT normocephalic and head/scalp atraumatic Mouth: endotracheal tube in place Eyes PERRL Neck supple General: trachea midline Chest inspection of chest normal Resp normal respiratory effort Auscultation: diminished lung sounds Cardio regular rate and regular rhythm GI soft to palpation and non-tender Inspection: abdominal distention Palpation: ascites Extremity General Extremity: edema; Negative for clubbing Skin no rashes or lesions noted Neuro Sensorium / Orientation: sedated on vent Charges/Coding Procedures Hospitalists Procedures: 50923 Critical Care 1st Hr
[2023-10-15] MEDS: Pantoprazole Sodium 40 MG in 0.9% Normal Saline (100mL MB+) 100 ML 330 MG IV (10:29)
[2023-10-15 10:53] LABS: Absolute Lymphocyte Count 0.68 X10^3/uL (0.83-4.51); Absolute Neutrophil Count 4.4 X10^3/uL (2.0-7.7); Eosinophil# 0.01 X10^3/uL; Eosinophils% 0.2 % (0-5); Hematocrit 24.4 % (40-54); Hemoglobin 7.9 g/dL (13.0-16.5); Lymphocyte # 0.68 X10^3/ul (0.83-4.51); Lymphocyte % 12.2 % (19-41); Mean Corp Hgb Conc 32.4 g/dL (32-36); Mean Corpuscular Hgb 33.8 pg (27.0-32.0); Mean Corpuscular Volume 104.3 fL (80-94); Mean Platelet Vol. 10.3 fl (6.2-12.0); Monocyte# 0.42 X10^3/uL; Monocyte% 7.5 % (0-10); NRBC Flagged by Analyzer 0 % (0-5); Neutrophil # 4.42 X10^3/uL (2.7-7.7); Neutrophil % 79.2 % (47-70); POSITIVE COUNT YES; RBC Distribution Width CV 14.8 % (11.6-14.6); RBC Distribution Width SD 56.1 fl (35.1-43.9); Red Blood Count 2.34 M/mm3 (4.6-6.2); White Blood Count 5.6 K/mm3 (4.4-11.0)
[2023-10-15 10:57] LABS: Platelet Count 41 K/mm3 (150-450)
[2023-10-15 11:32] LABS: ALB/GLOB Ratio 0.7 RATIO (0.9-2.4); AST(SGOT) 30 U/L (15-37); Alanine Aminotransfer ALT/SGPT < 6 U/L (16-61); Albumin, Serum 2.1 g/dL (3.2-5.0); Alkaline Phosphatase 77 U/L (45-117); Anion Gap 4 (5-15); BUN 69 mg/dL (7-18); BUN/Creat Ratio 30.5 RATIO (10-20); Calcium,Total 8.2 mg/dL (8.5-10.1); Chloride 111 mmol/L (98-107); Creatinine, Serum 2.26 mg/dL (0.70-1.30); EST Glomerular Filtration Rate 30 mL/min (>60); Est Glom Filt Rate - Afr Amer 36 mL/min (>60); Estimated Creatinine Clearance 23.53 ml/min; Glucose 102 mg/dL (74-106); Potassium 3.8 mmol/L (3.5-5.1); Protein, Total 5.1 g/dL (6.4-8.2); Sodium Level 146 mmol/L (136-145)
[2023-10-15 12:25] LABS: Bedside Glucose 94 mg/dL (74-106)
[2023-10-15] MEDS: Norepinephrine 8 MG in 0.9% Normal Saline (250mL Bag) 242 ML 9.4 MG CONT INF (14:33)
[2023-10-15] MEDS: fentaNYL drip 100 ML 5 MCG CONT INF (16:25)
--- NOTE | 2023-10-15 17:36 | PN.HOSP_ITS ---
Reason for Visit Reason for Visit: Diagnoses Acute respiratory failure with hypercapnia (10/13/23) Respiratory failure, unspecified, unspecified whether with hypoxia or hypercapnia (10/13/23) Other ascites (10/13/23) Subjective Subjective Patient was seen and examined today, he remains sedated and on the ventilator at this time. Objective Data Objective Data Vital Signs: Vital Signs Temp Pulse Resp BP Pulse Ox O2 Del Method FiO2 99.4 F H 97 18 105/60 95 Mechanical Ventilator 25 10/15/23 16:00 10/15/23 17:00 10/15/23 17:00 10/15/23 17:00 10/15/23 17:00 10/15/23 17:00 10/15/23 17:00 Oxygen Delivery Method Mechanical Ventilator Weight: 76.2 kg Body Mass Index (BMI) 27.0 Intake & Output: Intake and Output for Last 24 Hours 10/13/23 10/14/23 10/15/23 23:59 23:59 23:59 Intake Total 3167.57 / 3216.77 2810.15 / 2824.45 693.81 / 693.81 Output Total 5875 / 5950 325 / 325 Balance 3167.57 / 3201.77 -3064.85 / -3125.55 368.81 / 368.81 Lab / Micro Data 10/15/23 10:35 10/15/23 10:35 Labs: Laboratory Results - last 24 hr 10/15/23 00:52: POC Glucose 104 10/15/23 05:08: POC Glucose 94 10/15/23 10:35: WBC 5.6, RBC 2.34 L, Hgb 7.9 L, Hct 24.4 L, MCV 104.3 H, MCH 33.8 H, MCHC 32.4, RDW Std Deviation 56.1 H, RDW Coeff of Jean Claude 14.8 H, Plt Count 41 L*, MPV 10.3, Immature Gran % (Auto) 0.900, Neut % (Auto) 79.2 H, Lymph % (Auto) 12.2 L, [place] % (Auto) 7.5, Eos % (Auto) 0.2, Baso % (Auto) 0.0, Absolute Neuts (auto) 4.4, Absolute Lymphs (auto) 0.68 L, Nucleated RBC % 0, Diff Path Review May foll, Sodium 146 H, Potassium 3.8, Chloride 111 H, Carbon Dioxide 31.0, Anion Gap 4 L, BUN 69 H, Creatinine 2.26 H, Estim Creat Clear Calc 23.53, Est GFR (MDRD) Af Amer 36 L, Est GFR (MDRD) Non-Af 30 L, BUN/Creatinine Ratio 30.5 H, Glucose 102, Calcium 8.2 L, Total Bilirubin 2.30 H, AST 30, ALT < 6 L, Alkaline Phosphatase 77, Total Protein 5.1 L, Albumin 2.1 L, Globulin 3.0, A lbumin/Globulin Ratio 0.7 L 10/15/23 12:08: POC Glucose 94 Micro: Microbiology 10/13/23 17:00 Urine, Catheterized Urine Culture - Preliminary Culture exhibits no growth. 10/13/23 17:07 Sputum, Induced/Lukens Gram Stain - Final 10/13/23 17:07 Sputum, Induced/Lukens Respiratory Culture - Final Providencia rettgeri 10/13/23 20:57 Mucosa - Nasopharyngeal Respiratory Panel (PCR) - Final 10/13/23 17:15 Mucosa - Nose SARS-CoV-2, Influenza & RSV (PCR) - Final Physical Exam Narrative Constitutional Narrative: Patient is sedated and on the ventilator, he appears older than his stated age and frail General Appearance: well developed HEENT normocephalic, head/scalp atraumatic and moist oral mucous membranes Eyes conjunctivae normal Neck no JVD and thyroid normal General: trachea midline Resp normal respiratory effort and clear to auscultation bilaterally Auscultation: Negative for rales, rhonchi or wheezes Cardio regular rate, regular rhythm, S1 normal heart sound, S2 normal heart sound, no murmurs, no rub and no gallops GI normal to inspection, nondistended, normoactive bowel sounds, soft to palpation and non-distended Extremity no clubbing, cyanosis or edema Skin Skin Narrative: Patient appears jaundiced Neuro Neuro Narrative: Patient is sedated and on the ventilator Psych Psych Narrative: Patient is sedated and on the ventilator Assessment & Plan Assessment/Plan (1) Respiratory failure requiring intubation: PLAN: Plan 1. Combined respiratory failure-patient remains on the ventilator at this time under sedation, critical care is participating in his care, patient will be continued on bronchodilators and empiric antibiotics, pulse ox will be monitored #2 acute metabolic encephalopathy-secondary to cirrhosis-patient's repeat ammonia level today was 38, he is receiving lactulose and Xifaxan #3 chronic liver cirrhosis with decompensation-patient underwent paracentesis today with removal of 5750 cc of light clear yellow fluid. Patient will be given 50 g of albumin #4 distributive shock-patient requires pressor support at this time from relative hypovolemia versus sepsis, he is on empiric antibiotics at this time #5 Parkinson's disease-complicates care, management, recovery, and prognosis, patient is on Sinemet #6 type 2 diabetes-blood sugars will be monitored, sliding scale insulin will be administered as needed #7 hypothyroidism-patient is on Synthroid #8 elevated creatinine-due to hypovolemia and cirrhosis-Labs will be monitored Total clinical time spent by myself addressing the patient's medical issues, reviewing all of his data, and collaborating with patient's care team: 35 minutes Charges/Coding Visit Charges Inpatient E&M: 51637 Subs Hosp L2
--- NOTE | 2023-10-15 17:55 | EX.PCM.PN.GI ---
Subjective Subjective Patient continues to be intubated and sedated on ventilator. Objective Data Objective Data Vital Signs: Vital Signs Temp Pulse Resp BP Pulse Ox O2 Del Method FiO2 99.4 F H 97 18 105/60 95 Mechanical Ventilator 25 10/15/23 16:00 10/15/23 17:00 10/15/23 17:00 10/15/23 17:00 10/15/23 17:00 10/15/23 17:00 10/15/23 17:00 Oxygen Delivery Method Mechanical Ventilator Weight: 167 lb 15.876 oz Body Mass Index (BMI) 27.0 Intake & Output: Intake and Output for Last 24 Hours 10/13/23 10/14/23 10/15/23 23:59 23:59 23:59 Intake Total 3167.57 / 3216.77 2810.15 / 2824.45 693.81 / 693.81 Output Total 5875 / 5950 325 / 325 Balance 3167.57 / 3201.77 -3064.85 / -3125.55 368.81 / 368.81 Lab / Micro Data 10/15/23 10:35 10/15/23 10:35 Labs: Laboratory Results - last 24 hr 10/15/23 00:52: POC Glucose 104 10/15/23 05:08: POC Glucose 94 10/15/23 10:35: WBC 5.6, RBC 2.34 L, Hgb 7.9 L, Hct 24.4 L, MCV 104.3 H, MCH 33.8 H, MCHC 32.4, RDW Std Deviation 56.1 H, RDW Coeff of Jean Claude 14.8 H, Plt Count 41 L*, MPV 10.3, Immature Gran % (Auto) 0.900, Neut % (Auto) 79.2 H, Lymph % (Auto) 12.2 L, [place] % (Auto) 7.5, Eos % (Auto) 0.2, Baso % (Auto) 0.0, Absolute Neuts (auto) 4.4, Absolute Lymphs (auto) 0.68 L, Nucleated RBC % 0, Diff Path Review June, Sodium 146 H, Potassium 3.8, Chloride 111 H, Carbon Dioxide 31.0, Anion Gap 4 L, BUN 69 H, Creatinine 2.26 H, Estim Creat Clear Calc 23.53, Est GFR (MDRD) Af Amer 36 L, Est GFR (MDRD) Non-Af 30 L, BUN/Creatinine Ratio 30.5 H, Glucose 102, Calcium 8.2 L, Total Bilirubin 2.30 H, AST 30, ALT < 6 L, Alkaline Phosphatase 77, Total Protein 5.1 L, Albumin 2.1 L, Globulin 3.0, Albumin/Globulin Ratio 0.7 L 10/15/23 12:08: POC Glucose 94 Micro: Microbiology 10/13/23 17:00 Urine, Catheterized Urine Culture - Preliminary Culture exhibits no growth. 10/13/23 17:07 Sputum, Induced/Lukens Gram Stain - Final 10/13/23 17:07 Sputum, Induced/Lukens Respiratory Culture - Final Providencia rettgeri 10/13/23 20:57 Mucosa - Nasopharyngeal Respiratory Panel (PCR) - Final 10/13/23 17:15 Mucosa - Nose SARS-CoV-2, Influenza & RSV (PCR) - Final Physical Exam Narrative Constitutional Narrative: Patient is sedated and on the ventilator, General Appearance: well developed HEENT normocephalic, head/scalp atraumatic and moist oral mucous membranes Eyes conjunctivae normal Neck no JVD and thyroid normal General: trachea midline Resp normal respiratory effort and clear to auscultation bilaterally Auscultation: Negative for rales, rhonchi or wheezes Cardio regular rate, regular rhythm, S1 normal heart sound, S2 normal heart sound, no murmurs, no rub and no gallops GI normal to inspection, nondistended, normoactive bowel sounds, soft to palpation and non-distended Extremity no clubbing, cyanosis or edema Skin Skin Narrative: Patient appears jaundiced Neuro Neuro Narrative: Patient is sedated and on the ventilator Psych Psych Narrative: Patient is sedated and on the ventilator Assessment & Plan Assessment/Plan (1) Acute hypercapnic respiratory failure: PLAN: Plan 78 year-old with multiple comorbidities, including alcoholic, cirrhosis, complicated by ascites, 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 It was intubated due to hypercapnic respiratory failure. Acute hypercapnic respiratory failure in setting of chronic COPD -Patient with pH of 7.2 and pCO2 97.7 -Patient required intubation in ED with plans to admit to ICU -Currently being managed by intent to the services and hospitalist. Hypotension -Unclear etiology, systolic blood pressure 60s on arrival -He he likely has circulatory and cardiac abnormalities as most patients with cirrhosis end up developing. -He is third spacing which is contributing to his hypertension, which can make things very challenging to maintain a map greeted and 65 mmHg -He should have high expansion with albumin at 1.5 to 2.5 mg per kilogram per day -He is already on Christopher presser therapy. Consider treatment for adrenal W with hydrocortisone 200 mg IV divided into four doses -Blood cultures and paracentesis fluid are negative thus far PRUDENCE with hyperkalemia -Patient with potassium of 5.8 and creatinine 2.14 up from 1.08 -hold spironolactone and Lasix -Patient received insulin and dextrose and was bolused with IV fluids -I don't think he is a candidate for any renal replacement therapy. If continues not to respond to pressors then he may benefit from Octreotide and midodrine. NACSELD - His chances this chances of developing a fungal infection doing the admission to 7%. His chances of living 30 days is only 3%o Poor prognosis 10/15/2023-patient's hemoglobin slowly trending down from 9.3-8 0.7-7.9. Also his platelet count is down from 50,000-41,000 and his creatinine is up to 2.26. This IS a very poor prognosis and regarding the liver still having synthetic function to recover in the setting of acute hypercapnic respiratory failure. Ammonia is improved and INR seems stable which shows some synthetic function. He remains on lactulose and Xifaxan. Patient being treated with broad-spectrum antibiotics. He is status post large-volume paracentesis and received albumin. If patient's hemoglobin continues to trend down he may need upper endoscopy. Charges/Coding Visit Charges Inpatient E&M: 58578 Subs Hosp L3
[2023-10-15] MEDS: Albumin Human 25% (100 mL) 25 GM/100 ML BAG IV ×2 (18:01→19:46)
[2023-10-15 18:02] LABS: Vancomycin, Trough Level 19.9 ug/mL (5.0-15.0)
[2023-10-15 18:45] LABS: Bedside Glucose 89 mg/dL (74-106)
--- NOTE | 2023-10-15 18:52 | PCM.RX.CS ---
Consult Antibiotic Management Pharmacy has been consulted to manage selected antibiotic: Vancomycin Type of Intervention Type of Consult: Follow-up Labs Labs: Sodium 146 mmol/L (136-145) H 10/15/23 10:35 Potassium 3.8 mmol/L (3.5-5.1) 10/15/23 10:35 Chloride 111 mmol/L (98-107) H 10/15/23 10:35 Carbon Dioxide 31.0 mmol/L (21.0-32.0) 10/15/23 10:35 Anion Gap 4 (5-15) L 10/15/23 10:35 BUN 69 mg/dL (7-18) H 10/15/23 10:35 Creatinine 2.26 mg/dL (0.70-1.30) H 10/15/23 10:35 Est GFR (MDRD) Af Amer 36 mL/min (>60) L 10/15/23 10:35 Est GFR (MDRD) Non-Af 30 mL/min (>60) L 10/15/23 10:35 BUN/Creatinine Ratio 30.5 RATIO (10-20) H 10/15/23 10:35 Glucose 102 mg/dL (74-106) 10/15/23 10:35 Vancomycin Trough 19.9 ug/mL (5.0-15.0) H 10/15/23 17:25 Microbiology Microbiology: Microbiology 10/13/23 17:00 Urine, Catheterized Urine Culture - Preliminary Culture exhibits no growth. 10/13/23 17:07 Sputum, Induced/Lukens Gram Stain - Final 10/13/23 17:07 Sputum, Induced/Lukens Respiratory Culture - Final Providencia rettgeri 10/13/23 20:57 Mucosa - Nasopharyngeal Respiratory Panel (PCR) - Final 10/13/23 17:15 Mucosa - Nose SARS-CoV-2, Influenza & RSV (PCR) - Final Goal Trough Goal Trough: 15-20 mcg/mL Pharmacy Plan for Drug Dosing Pharmacy Plan for Drug Dosing: VANCOMYCIN LEVEL RECEIVED Current Vancomycin Dose: 750mg IV Q24h Number of Doses Received: 2 (loading dose + 1 scheduled dose) Vancomycin Level: 19.9 Hours Since Last Dose: 23hr Renal Function: 2.26 Renal Function Trend: slight increase from yesterday's labs Lab/Micro: SCx growing providencia, all other Cx remain NGTD Vancomycin Plan/Comments: patient had a trough drawn which resulted in a value of 19.9 (goal 15-20). Patient is within therapeutic goal for vancomycin at this time. Will continue current dosing and recheck a trough in 2 days to assess dosing at that time. Pharmacy will also continue to closely monitor renal function d/t slight worsening. Will consider obtaining trough earlier if renal function continues to decline. Pending Level: 10/17/23 @1830 Pharmacy Service will continue to monitor and adjust dosing as required.
[2023-10-15] MEDS: Vancomycin HCl 750 MG in 0.9% Normal Saline (250mL Bag) 250 ML 250 MG IV (19:45)
[2023-10-15] MEDS: 0.9% Saline Lock 10 ML Syringe IV (19:47)
[2023-10-15] MEDS: Lactulose 20 GM/30 ML UDC GT (21:59)
[2023-10-15] MEDS: rifAXIMin 550 MG Tablet GT (21:59)
[2023-10-15 23:55] LABS: Bedside Glucose 89 mg/dL (74-106)
[2023-10-16] VITALS (45 sets, daily range): BP systolic 93–146; BP diastolic 50–89; PULSE 78–104; RESP 13–24; TEMP 36.8–37.4; O2SAT 90–100; BMI 27.3
[2023-10-16] MEDS: fentaNYL drip 100 ML 10 MCG CONT INF (00:57)
[2023-10-16] MEDS: Ipratropium/Albuterol Sulfate 3 ML AMPUL.NEB INHALATION ×4 (01:53→19:20)
[2023-10-16 04:31] LABS: Absolute Lymphocyte Count 0.61 X10^3/uL (0.83-4.51); Absolute Neutrophil Count 3.8 X10^3/uL (2.0-7.7); Basophil# 0.01 X10^3/uL; Basophil% 0.2 % (0-1); Eosinophil# 0.04 X10^3/uL; Eosinophils% 0.8 % (0-5); Hemoglobin 7.3 g/dL (13.0-16.5); Lymphocyte # 0.61 X10^3/ul (0.83-4.51); Lymphocyte % 12.4 % (19-41); Mean Corp Hgb Conc 31.7 g/dL (32-36); Mean Corpuscular Hgb 33.6 pg (27.0-32.0); Monocyte# 0.46 X10^3/uL; Monocyte% 9.3 % (0-10); NRBC Flagged by Analyzer 0 % (0-5); Neutrophil # 3.75 X10^3/uL (2.7-7.7); Neutrophil % 76.1 % (47-70); POSITIVE COUNT YES; RBC Distribution Width CV 14.9 % (11.6-14.6); Red Blood Count 2.17 M/mm3 (4.6-6.2); White Blood Count 4.9 K/mm3 (4.4-11.0)
[2023-10-16 04:41] LABS: Differential Indicated SCAN CRITERIA MET; Platelet Count 35 K/mm3 (150-450)
[2023-10-16 04:47] LABS: Anion Gap 6 (5-15); BUN 69 mg/dL (7-18); BUN/Creat Ratio 32.5 RATIO (10-20); Calcium,Total 8.1 mg/dL (8.5-10.1); Chloride 111 mmol/L (98-107); Creatinine, Serum 2.12 mg/dL (0.70-1.30); EST Glomerular Filtration Rate 32 mL/min (>60); Est Glom Filt Rate - Afr Amer 39 mL/min (>60); Estimated Creatinine Clearance 25.08 ml/min; Glucose 83 mg/dL (74-106); Magnesium 2.2 mg/dL (1.6-2.6); Phosphorus 1.9 mg/dL (2.5-4.9); Potassium 3.6 mmol/L (3.5-5.1); Sodium Level 147 mmol/L (136-145)
[2023-10-16] MEDS: Piperacil/Tazobactam 3.375 GM in 0.9% Normal Saline (50mL MB+) 50 ML IV (05:13)
[2023-10-16 06:01] LABS: Platelet Estimate MKD DEC (ADEQ)
--- NOTE | 2023-10-16 06:10 | PCM.PN.INT ---
Assessment & Plan Assessment/Plan (1) Acute hypercapnic respiratory failure: PLAN: Plan RECOMMENDATIONS: 1. Continue assist-control mode mechanical ventilation. Wean FiO2 and PEEP to maintain saturations at or above 90%. 2. Continue vasopressor support to maintain hemodynamic stability. 3. Continue lactulose and rifaximin. 4. Continue antimicrobials. 5. Continue PPI therapy. 6. Send type and screen. Continue to monitor H&H and transfuse if hemoglobin drops below 7 g/dL. 7. Remainder of medical recommendations per gastroenterology. 8. Ongoing goals of care discussion with the patient's family. IMPRESSIONS: 1. Acute combined respiratory failure The patient has a suspected history of COPD of unclear severity. He presented with acute CO2 retention, which required invasive mechanical ventilatory support. Chest imaging demonstrated the presence of bilateral pleural effusions, most likely secondary to decompensated cirrhosis and subsequent hepatic hydrothorax. There is some question about a basilar infiltrates. However, I strongly suspect that this is likely related to compressive atelectasis. However, the patient's sputum culture is demonstrating growth of gram-negative rods. Therefore, the patient will be maintained on antimicrobials and scheduled bronchodilators. Continue to wean FiO2 and PEEP. Minimize sedation to maintain a RASS of -1 to 1. Continue attempts at daily spontaneous awakening and breathing trials. 2. Acute metabolic encephalopathy Clinical concern for underlying decompensated cirrhosis. Continue current medical management with lactulose and rifaximin. Minimize sedation as tolerated. Gastroenterology is following. 3. Decompensated liver cirrhosis The patient is currently followed by GI on an outpatient basis. Continue lactulose and rifaximin. He is now status post repeat paracentesis. Remainder of care per gastroenterology recommendations. The patient's overall prognosis is quite poor and I feel that he is hospice appropriate. 4. Hypovolemic versus septic shock I suspect that the patient's shock state is likely related to his underlying cirrhosis and third spacing that occurs. In addition, the patient likely has gram-negative pneumonia. He has been initiated on appropriate vasopressor support, which will be continued to target a systolic blood pressure at or above 90 mmHg. 5. Anemia GI is following. Will plan to send type and screen today. Continue to trend H&H. Transfuse if hemoglobin drops below 7 g/dL. If anemia worsens, the patient will likely require upper endoscopy. 6. History of anemia/diabetes mellitus/duodenal ulcers/Parkinson's disease/hypothyroidism Complicates care, management, recovery and prognosis. Continue supportive measures as noted above. Recommend ongoing goals of care discussion with the patient's family. Previously, the patient was enrolled in hospice care services. The services were apparently revoked upon admission to the hospital. TIME: 33 minutes of critical care time, independent of procedures, was spent addressing the patient's acute combined respiratory failure, acute metabolic encephalopathy, decompensated liver cirrhosis, hypovolemic versus septic shock, anemia, review of all data and collaboration with the care team. Subjective Subjective The patient was seen and examined at the bedside this morning. Events from the last 24 hours have been reviewed. The patient continues to have low-grade fevers and remains on assist-control mode of mechanical ventilation with an FiO2 requirement of 25%. Hemoglobin is dropped to 7.3 g/dL. Platelet count has also dropped to 35,000. Creatinine is relatively stable at 2.12. Phosphorus is low at 1.9. The patient once again failed his spontaneous breathing trial this morning. He continues to require low-dose Levophed. Objective Data Objective Data The patient's most recent lab work, culture data and imaging studies have all been personally reviewed. Preliminary sputum culture was positive for 2+ Providencia. Vital Signs: Vital Signs Temp Pulse Resp BP Pulse Ox O2 Del Method FiO2 99.4 F H 86 15 146/89 H 97 Mechanical Ventilator 25 10/16/23 05:00 10/16/23 06:00 10/16/23 05:00 10/16/23 05:00 10/16/23 05:00 10/16/23 05:00 10/16/23 05:00 Oxygen Delivery Method Mechanical Ventilator Weight: 170 lb 6.677 oz Body Mass Index (BMI) 27.3 Intake & Output: Intake and Output for Last 24 Hours 10/14/23 10/15/23 10/16/23 23:59 23:59 23:59 Intake Total 2810.15 / 2824.45 1313.35 / 1362.75 212.65 / 212.65 Output Total 5875 / 5950 550 / 650 375 / 375 Balance -3064.85 / -3125.55 763.35 / 712.75 -162.35 / -162.35 Lab / Micro Data Attestation: I reviewed the patient's lab results. 10/16/23 04:10 10/16/23 04:10 Labs: Laboratory Results - last 24 hr 10/15/23 10:35: WBC 5.6, RBC 2.34 L, Hgb 7.9 L, Hct 24.4 L, MCV 104.3 H, MCH 33.8 H, MCHC 32.4, RDW Std Deviation 56.1 H, RDW Coeff of Jean Claude 14.8 H, Plt Count 41 L*, MPV 10.3, Immature Gran % (Auto) 0.900, Neut % (Auto) 79.2 H, Lymph % (Auto) 12.2 L, [place] % (Auto) 7.5, Eos % (Auto) 0.2, Baso % (Auto) 0.0, Absolute Neuts (auto) 4.4, Absolute Lymphs (auto) 0.68 L, Nucleated RBC % 0, Diff Path Review June, Sodium 146 H, Potassium 3.8, Chloride 111 H, Carbon Dioxide 31.0, Anion Gap 4 L, BUN 69 H, Creatinine 2.26 H, Estim Creat Clear Calc 23.53, Est GFR (MDRD) Af Amer 36 L, Est GFR (MDRD) Non-Af 30 L, BUN/Creatinine Ratio 30.5 H, Glucose 102, Calcium 8.2 L, Total Bilirubin 2.30 H, AST 30, ALT < 6 L, Alkaline Phosphatase 77, Total Protein 5.1 L, Albumin 2.1 L, Globulin 3.0, Albumin/Globulin Ratio 0.7 L 10/15/23 12:08: POC Glucose 94 10/15/23 17:25: Vancomycin Trough 19.9 H 10/15/23 18:03: POC Glucose 89 10/15/23 23:35: POC Glucose 89 10/16/23 04:10: WBC 4.9, RBC 2.17 L, Hgb 7.3 L, Hct 23.0 L, MCV 106.0 H, MCH 33.6 H, MCHC 31.7 L, RDW Std Deviation 57.0 H, RDW Coeff of Jean Claude 14.9 H, Plt Count 35 L*, MPV 10.0, Immature Gran % (Auto) 1.200 H, Neut % (Auto) 76.1 H, Lymph % (Auto) 12.4 L, [place] % (Auto) 9.3, Eos % (Auto) 0.8, Baso % (Auto) 0.2, Absolute Neuts (auto) 3.8, Absolute Lymphs (auto) 0.61 L, Nucleated RBC % 0, Diff Path Review May foll, Platelet Estimate MKD DEC, Sodium 147 H, Potassium 3.6, Chloride 111 H, Carbon Dioxide 30.0, Anion Gap 6, BUN 69 H, Creatinine 2.12 H, Estim Creat Clear Calc 25.08, Est GFR (MDRD) Af Amer 39 L, Est GFR (MDRD) Non-Af 32 L, BUN/Creatinine Ratio 32.5 H, Glucose 83, Calcium 8.1 L, Phosphorus 1.9 L, Magnesium 2.2 Micro: Microbiology 10/13/23 17:00 Urine, Catheterized Urine Culture - Preliminary Culture exhibits no growth. 10/13/23 17:07 Sputum, Induced/Lukens Gram Stain - Final 10/13/23 17:07 Sputum, Induced/Lukens Respiratory Culture - Final Providencia rettgeri 10/13/23 20:57 Mucosa - Nasopharyngeal Respiratory Panel (PCR) - Final 10/13/23 17:15 Mucosa - Nose SARS-CoV-2, Influenza & RSV (PCR) - Final ABG Data ABG results: ABG 10/14/23 11:52 Specimen Type ART Sample Site L Brach pH 7.65 H* Bicarbonate Actual 30.3 H Total CO2 31 Base Excess 10 H O2 Saturation 90 L O2 % 25.0 ABG pCO2 27.3 L ABG pO2 44 L Jonah Test Positive Respiration Rate 18 O2 Delivery Device Adult Vent Vent Mode AC Tidal Volume 450.0 POC PEEP 5 Crit Call To/Read Back Yes Blood Gas Notified Whom BROWN Blood Gas Notified Time 11:53:51 Physical Exam Const Constitutional Narrative: Intubated, sedated and mechanically ventilated. Jaundiced in appearance. HEENT normocephalic and head/scalp atraumatic Mouth: endotracheal tube in place Eyes PERRL Neck supple General: trachea midline Chest inspection of chest normal Resp normal respiratory effort Auscultation: diminished lung sounds Cardio regular rate and regular rhythm GI soft to palpation and non-tender Extremity General Extremity: edema; Negative for clubbing Skin no rashes or lesions noted Neuro Sensorium / Orientation: sedated on vent Psych Activity / Motor Behavior: restless Charges/Coding Procedures Hospitalists Procedures: 84870 Critical Care 1st Hr
[2023-10-16] MEDS: Levothyroxine 125 MCG Tablet GT (06:38)
[2023-10-16] MEDS: Potassium Phosphate 30 MM in 0.9% Normal Saline (250mL Bag) 250 ML 42 MM IV (06:38)
[2023-10-16 06:52] LABS: Bedside Glucose 76 mg/dL (74-106)
[2023-10-16] MEDS: Carbidopa/Levodopa 25/100 Tablet GT ×3 (07:50→16:09)
[2023-10-16] MEDS: Chlorhexidine 15 ML PO ×2 (07:59→21:19)
[2023-10-16] MEDS: CHLORHEXIDINE GLUC 2% CLOTH 1 EACH TOWELETTE TOPICAL (07:59)
[2023-10-16] MEDS: Lactulose 20 GM/30 ML UDC GT ×2 (08:02→21:19)
[2023-10-16] MEDS: rifAXIMin 550 MG Tablet GT ×2 (08:02→21:19)
[2023-10-16] MEDS: 0.9% Saline Lock 10 ML Syringe IV (08:17)
[2023-10-16 08:33] LABS: Pathologist Review Reviewed
[2023-10-16] MEDS: Pantoprazole Sodium 40 MG in 0.9% Normal Saline (100mL MB+) 100 ML 330 MG IV (09:44)
[2023-10-16] MEDS: Cefepime HCl 1 GM in 0.9% Normal Saline (50mL MB+) 50 ML IV (10:23)
[2023-10-16] MEDS: fentaNYL drip 100 ML 12.5 MCG CONT INF ×2 (11:19→18:47)
[2023-10-16 11:45] LABS: Bedside Glucose 88 mg/dL (74-106)
[2023-10-16 14:35] LABS: Pathologist Review Reviewed
--- NOTE | 2023-10-16 16:51 | PN.HOSP_ITS ---
Reason for Visit Reason for Visit: Diagnoses Acute respiratory failure with hypercapnia (10/13/23) Respiratory failure, unspecified, unspecified whether with hypoxia or hypercapnia (10/13/23) Other ascites (10/13/23) Subjective Subjective Patient was seen and examined today, he remains sedated and on the ventilator at this time. Patient's labs this morning showed hemoglobin of 7.3, patient's platelet count was 35,000. Sodium remains elevated at 147, creatinine was 2.12 with a BUN of 69. Objective Data Objective Data Vital Signs: Vital Signs Temp Pulse Resp BP Pulse Ox O2 Del Method O2 Flow Rate 98.5 F 92 14 120/66 91 Mechanical Ventilator 9 10/16/23 16:00 10/16/23 16:15 10/16/23 16:01 10/16/23 16:15 10/16/23 16:01 10/16/23 16:00 10/16/23 11:00 FiO2 25 10/16/23 16:01 Oxygen Flow Rate (L/min) 9 Oxygen Delivery Method Mechanical Ventilator Weight: 77.3 kg Body Mass Index (BMI) 27.3 Intake & Output: Intake and Output for Last 24 Hours 10/14/23 10/15/23 10/16/23 23:59 23:59 23:59 Intake Total 2810.15 / 2824.45 1313.35 / 1362.75 1006.18 / 1006.18 Output Total 5875 / 5950 550 / 650 875 / 875 Balance -3064.85 / -3125.55 763.35 / 712.75 131.18 / 131.18 Lab / Micro Data 10/16/23 04:10 10/16/23 04:10 Labs: Laboratory Results - last 24 hr 10/15/23 10:35: Diff Path Review Reviewed 10/15/23 17:25: Vancomycin Trough 19.9 H 10/15/23 18:03: POC Glucose 89 10/15/23 23:35: POC Glucose 89 10/16/23 04:10: WBC 4.9, RBC 2.17 L, Hgb 7.3 L, Hct 23.0 L, MCV 106.0 H, MCH 33.6 H, MCHC 31.7 L, RDW Std Deviation 57.0 H, RDW Coeff of Jean Claude 14.9 H, Plt Count 35 L*, MPV 10.0, Immature Gran % (Auto) 1.200 H, Neut % (Auto) 76.1 H, L ymph % (Auto) 12.4 L, [place] % (Auto) 9.3, Eos % (Auto) 0.8, Baso % (Auto) 0.2, Absolute Neuts (auto) 3.8, Absolute Lymphs (auto) 0.61 L, Nucleated RBC % 0, Diff Path Review Reviewed, Platelet Estimate MKD DEC, Sodium 147 H, Potassium 3.6, Chloride 111 H, Carbon Dioxide 30.0, Anion Gap 6, BUN 69 H, Creatinine 2.12 H, Estim Creat Clear Calc 25.08, Est GFR (MDRD) Af Amer 39 L, Est GFR (MDRD) Non-Af 32 L, BUN/Creatinine Ratio 32.5 H, Glucose 83, Calcium 8.1 L, Phosphorus 1.9 L, Magnesium 2.2 10/16/23 06:30: Blood Type A POSITIVE, Antibody Screen NEGATIVE 10/16/23 06:34: POC Glucose 76 10/16/23 11:19: POC Glucose 88 Micro: Microbiology 10/13/23 16:58 Blood Culture (Wb) - Anticubital Left Blood Culture - Preliminary No growth in 48 hours. 10/13/23 17:00 Urine, Catheterized Urine Culture - Final Mixed Gram Positive Organisms 10/13/23 17:07 Sputum, Induced/Lukens Gram Stain - Final 10/13/23 17:07 Sputum, Induced/Lukens Respiratory Culture - Final Providencia rettgeri 10/13/23 20:57 Mucosa - Nasopharyngeal Respiratory Panel (PCR) - Final 10/13/23 17:15 Mucosa - Nose SARS-CoV-2, Influenza & RSV (PCR) - Final Physical Exam Narrative Constitutional Narrative: Patient is sedated and on the ventilator, he appears older than his stated age and frail General Appearance: well developed HEENT normocephalic, head/scalp atraumatic and moist oral mucous membranes Eyes conjunctivae normal Neck no JVD and thyroid normal General: trachea midline Resp normal respiratory effort and clear to auscultation bilaterally Auscultation: Negative for rales, rhonchi or wheezes Cardio regular rate, regular rhythm, S1 normal heart sound, S2 normal heart sound, no murmurs, no rub and no gallops GI normal to inspection, nondistended, normoactive bowel sounds, soft to palpation and non-distended Extremity no clubbing, cyanosis or edema Skin Skin Narrative: Patient appears jaundiced Neuro Neuro Narrative: Patient is sedated and on the ventilator Psych Psych Narrative: Patient is sedated and on the ventilator Assessment & Plan Assessment/Plan (1) COPD (chronic obstructive pulmonary disease): (2) Respiratory failure requiring intubation: PLAN: Plan 1. Combined respiratory failure-patient remains on the ventilator at this time under sedation, critical care is participating in his care, patient will be continued on bronchodilators and empiric antibiotics, pulse ox will be monitored #2 acute metabolic encephalopathy-secondary to cirrhosis- he is receiving lactulose and Xifaxan #3 chronic liver cirrhosis with decompensation-patient underwent paracentesis yesterday with removal of 5750 cc of light clear yellow fluid. #4 distributive shock-patient requires pressor support at this time from relative hypovolemia versus sepsis, he is on empiric antibiotics at this time #5 Parkinson's disease-complicates care, management, recovery, and prognosis, patient is on Sinemet #6 type 2 diabetes-blood sugars will be monitored, sliding scale insulin will be administered as needed #7 hypothyroidism-patient is on Synthroid #8 elevated creatinine-due to hypovolemia and cirrhosis-Labs will be monitored Total clinical time spent by myself addressing the patient's medical issues, reviewing all of his data, and collaborating with patient's care team: 35 minutes Charges/Coding Visit Charges Inpatient E&M: 97621 Subs Hosp L2
[2023-10-16 18:44] LABS: Bedside Glucose 78 mg/dL (74-106)
[2023-10-16] MEDS: Vancomycin HCl 750 MG in 0.9% Normal Saline (250mL Bag) 250 ML 250 MG IV (18:47)
[2023-10-16 23:34] LABS: Bedside Glucose 74 mg/dL (74-106)
[2023-10-17] VITALS (35 sets, daily range): BP systolic 93–132; BP diastolic 43–76; PULSE 70–111; RESP 14–22; TEMP 37.1–37.6; O2SAT 92–100; BMI 27.9
[2023-10-17] MEDS: fentaNYL drip 100 ML 12.5 MCG CONT INF (01:15)
[2023-10-17] MEDS: Ipratropium/Albuterol Sulfate 3 ML AMPUL.NEB INHALATION ×4 (01:15→18:56)
[2023-10-17 06:05] LABS: Bedside Glucose 69 mg/dL (74-106)
[2023-10-17 06:33] LABS: Absolute Lymphocyte Count 0.46 X10^3/uL (0.83-4.51); Absolute Neutrophil Count 3.4 X10^3/uL (2.0-7.7); Basophil# 0.01 X10^3/uL; Basophil% 0.2 % (0-1); Eosinophil# 0.09 X10^3/uL; Hematocrit 22.3 % (40-54); Hemoglobin 7.1 g/dL (13.0-16.5); Lymphocyte # 0.46 X10^3/ul (0.83-4.51); Lymphocyte % 10.2 % (19-41); Mean Corp Hgb Conc 31.8 g/dL (32-36); Mean Corpuscular Hgb 33.6 pg (27.0-32.0); Mean Corpuscular Volume 105.7 fL (80-94); Mean Platelet Vol. 9.7 fl (6.2-12.0); Monocyte% 11.1 % (0-10); NRBC Flagged by Analyzer 0 % (0-5); Neutrophil # 3.44 X10^3/uL (2.7-7.7); Neutrophil % 76.1 % (47-70); POSITIVE COUNT YES; POSITIVE DIFFERENTIAL YES; RBC Distribution Width CV 15.1 % (11.6-14.6); Red Blood Count 2.11 M/mm3 (4.6-6.2); White Blood Count 4.5 K/mm3 (4.4-11.0)
[2023-10-17 06:39] LABS: Differential Indicated SCAN CRITERIA MET; Platelet Count 34 K/mm3 (150-450)
[2023-10-17 07:26] LABS: ALB/GLOB Ratio 0.9 RATIO (0.9-2.4); AST(SGOT) 33 U/L (15-37); Alanine Aminotransfer ALT/SGPT < 6 U/L (16-61); Albumin, Serum 2.3 g/dL (3.2-5.0); Alkaline Phosphatase 67 U/L (45-117); Anion Gap 6 (5-15); BUN 63 mg/dL (7-18); Calcium,Total 7.8 mg/dL (8.5-10.1); Chloride 115 mmol/L (98-107); Creatinine, Serum 1.97 mg/dL (0.70-1.30); EST Glomerular Filtration Rate 35 mL/min (>60); Est Glom Filt Rate - Afr Amer 42 mL/min (>60); Estimated Creatinine Clearance 29.48 ml/min; Globulin 2.5 g/dL (2.2-4.2); Glucose 72 mg/dL (74-106); Potassium 3.9 mmol/L (3.5-5.1); Protein, Total 4.8 g/dL (6.4-8.2); Sodium Level 149 mmol/L (136-145)
--- NOTE | 2023-10-17 07:30 | PCM.PN.HOSP ---
Reason for Visit Reason for Visit: Diagnoses Chronic obstructive pulmonary disease, unspecified (10/13/23) Acute respiratory failure with hypercapnia (10/13/23) Respiratory failure, unspecified, unspecified whether with hypoxia or hypercapnia (10/13/23) Other ascites (10/13/23) Subjective Subjective Patient was seen and examined today, he remains sedated and on the ventilator at this time, CBC this morning showed hemoglobin of 7.1, platelet count remained stable at 34,000. Objective Data Objective Data Vital Signs: Vital Signs Temp Pulse Resp BP Pulse Ox O2 Del Method O2 Flow Rate 99.6 F H 81 14 99/53 L 95 Mechanical Ventilator 9 10/17/23 06:00 10/17/23 06:55 10/17/23 06:55 10/17/23 06:00 10/17/23 06:55 10/17/23 06:00 10/16/23 11:00 FiO2 25 10/17/23 06:55 Oxygen Flow Rate (L/min) 9 Oxygen Delivery Method Mechanical Ventilator Weight: 78.5 kg Body Mass Index (BMI) 27.9 Intake & Output: Intake and Output for Last 24 Hours 10/15/23 10/16/23 10/17/23 23:59 23:59 23:59 Intake Total 1313.35 / 1362.75 1418.68 / 1431.18 54.39 / 54.39 Output Total 550 / 650 1275 / 1425 375 / 375 Balance 763.35 / 712.75 143.68 / 6.18 -320.61 / -320.61 Lab / Micro Data 10/17/23 06:20 10/17/23 06:20 Labs: Laboratory Results - last 24 hr 10/15/23 10:35: Diff Path Review Reviewed 10/16/23 04:10: Diff Path Review Reviewed 10/16/23 06:30: Blood Type A POSITIVE, Antibody Screen NEGATIVE 10/16/23 11:19: POC Glucose 88 10/16/23 18:19: POC Glucose 78 10/16/23 23:15: POC Glucose 74 10/17/23 05:47: POC Glucose 69 L 10/17/23 06:20: WBC 4.5, RBC 2.11 L, Hgb 7.1 L, Hct 22.3 L, MCV 105.7 H, MCH 33.6 H, MCHC 31.8 L, RDW Std Deviation 57.0 H, RDW Coeff of Jean Claude 15.1 H, Plt Count 34 L*, MPV 9.7, Immature Gran % (Auto) 0.400, Neut % (Auto) 76.1 H, Lymph % (Auto) 10.2 L, Mcmullen % (Auto) 11.1 H, Eos % (Auto) 2.0, Baso % (Auto) 0.2, Absolute Neuts (auto) 3.4, Absolute Lymphs (auto) 0.46 L, Nucleated RBC % 0, Diff Path Review June, Sodium 149 H, Potassium 3.9, Chloride 115 H, Carbon Dioxide 28.0, Anion Gap 6, BUN 63 H, Creatinine 1.97 H, Estim Creat Clear Calc 29.48, Est GFR (MDRD) Af Amer 42 L, Est GFR (MDRD) Non-Af 35 L, BUN/Creatinine Ratio 32.0 H, Glucose 72 L, Calcium 7.8 L, Total Bilirubin 2.20 H, AST 33, ALT < 6 L, Alkaline Phosphatase 67, Total Protein 4.8 L, Albumin 2.3 L, Globulin 2.5, Albumin/Globulin Ratio 0.9 Micro: Microbiology 10/13/23 16:58 Blood Culture (Wb) - Anticubital Left Blood Culture - Preliminary No growth in 48 hours. 10/13/23 17:00 Urine, Catheterized Urine Culture - Final Mixed Gram Positive Organisms 10/13/23 17:07 Sputum, Induced/Lukens Gram Stain - Final 10/13/23 17:07 Sputum, Induced/Lukens Respiratory Culture - Final Providencia rettgeri 10/13/23 20:57 Mucosa - Nasopharyngeal Respiratory Panel (PCR) - Final 10/13/23 17:15 Mucosa - Nose SARS-CoV-2, Influenza & RSV (PCR) - Final Physical Exam Narrative Constitutional Narrative: Patient is sedated and on the ventilator, he appears older than his stated age and frail General Appearance: well developed HEENT normocephalic, head/scalp atraumatic and moist oral mucous membranes Eyes conjunctivae normal Neck no JVD and thyroid normal General: trachea midline Resp normal respiratory effort and clear to auscultation bilaterally Auscultation: Negative for rales, rhonchi or wheezes Cardio regular rate, regular rhythm, S1 normal heart sound, S2 normal heart sound, no murmurs, no rub and no gallops GI normal to inspection, nondistended, normoactive bowel sounds, soft to palpation and non-distended Extremity no clubbing, cyanosis or edema Skin Skin Narrative: Patient appears jaundiced Neuro Neuro Narrative: Patient is sedated and on the ventilator Psych Psych Narrative: Patient is sedated and on the ventilator Assessment & Plan Assessment/Plan (1) Respiratory failure requiring intubation: (2) COPD (chronic obstructive pulmonary disease): PLAN: Plan 1. Combined respiratory failure-patient remains on the ventilator at this time under sedation, critical care is participating in his care, patient will be continued on bronchodilators and empiric antibiotics, pulse ox will be monitored #2 acute metabolic encephalopathy-secondary to cirrhosis- he is receiving lactulose and Xifaxan #3 chronic liver cirrhosis with decompensation-patient underwent paracentesis this admission #4 distributive shock-patient requires pressor support at this time from relative hypovolemia versus sepsis, he is on empiric antibiotics at this time #5 Parkinson's disease-complicates care, management, recovery, and prognosis, patient is on Sinemet #6 type 2 diabetes-blood sugars will be monitored, sliding scale insulin will be administered as needed #7 hypothyroidism-patient is on Synthroid #8 elevated creatinine-due to hypovolemia and cirrhosis-Labs will be monitored, creatinine is improved today #9 anemia-patient will be transfused and his hemoglobin drops below 7, etiology of the anemia is unknown at this time #10 pneumonia-patient's sputum grew out Providencia, he is currently on antibiotics Total clinical time spent by myself addressing the patient's medical issues, reviewing all of his data, and collaborating with patient's care team: 35 minutes Charges/Coding Visit Charges Inpatient E&M: 77963 Subs Hosp L2
[2023-10-17] MEDS: Levothyroxine 125 MCG Tablet GT (07:55)
[2023-10-17] MEDS: Carbidopa/Levodopa 25/100 Tablet GT ×3 (07:55→16:16)
--- NOTE | 2023-10-17 08:50 | PCM.PN.INT ---
Assessment & Plan Assessment/Plan (1) Acute hypercapnic respiratory failure: PLAN: Plan RECOMMENDATIONS: 1. Continue assist-control mode mechanical ventilation. Wean FiO2 and PEEP to maintain saturations at or above 90%. 2. Start D5W given rising sodium. 3. Continue lactulose and rifaximin. 4. Continue antimicrobials. 5. Continue PPI therapy. 6. Transfuse 1 unit of packed red blood cells. Check H&H posttransfusion. 7. Remainder of medical recommendations per gastroenterology. 8. Ongoing goals of care discussion with the patient's family. IMPRESSIONS: 1. Acute combined respiratory failure The patient has a suspected history of COPD of unclear severity. He presented with acute CO2 retention, which required invasive mechanical ventilatory support. Chest imaging demonstrated the presence of bilateral pleural effusions, most likely secondary to decompensated cirrhosis and subsequent hepatic hydrothorax, along with basilar infiltrates. Sputum culture was positive for gram-negative rods. Therefore, the patient has been maintained on antimicrobials and scheduled bronchodilators. Continue to wean FiO2 and PEEP. Minimize sedation to maintain a RASS of -1 to 1. Continue attempts at daily spontaneous awakening and breathing trials. 2. Acute metabolic encephalopathy Clinical concern for underlying decompensated cirrhosis. Continue current medical management with lactulose and rifaximin. Minimize sedation as tolerated. Gastroenterology is following. 3. Decompensated liver cirrhosis The patient is currently followed by GI on an outpatient basis. Continue lactulose and rifaximin. He is now status post repeat paracentesis. Remainder of care per gastroenterology recommendations. The patient's overall prognosis is quite poor and I feel that he is hospice appropriate. 4. Hypovolemic versus septic shock I suspect that the patient's shock state is likely related to his underlying cirrhosis and third spacing that occurs. In addition, the patient has gram-negative pneumonia. He has been weaned from vasopressor support as of this time. 5. Anemia GI is following. Will plan to send type and screen today. Continue to trend H&H. Transfuse if hemoglobin drops below 7 g/dL. If anemia worsens, the patient will likely require upper endoscopy. 6. History of anemia/diabetes mellitus/duodenal ulcers/Parkinson's disease/hypothyroidism Complicates care, management, recovery and prognosis. Continue supportive measures as noted above. Recommend ongoing goals of care discussion with the patient's family. Previously, the patient was enrolled in hospice care services. The services were apparently revoked upon admission to the hospital. TIME: 34 minutes of critical care time, independent of procedures, was spent addressing the patient's acute combined respiratory failure, acute metabolic encephalopathy, decompensated liver cirrhosis, hypovolemic versus septic shock, anemia, review of all data and collaboration with the care team. Subjective Subjective The patient was seen and examined at the bedside this morning. Events from the last 24 hours have been reviewed. The patient is currently afebrile, hemodynamically stable and maintaining appropriate oxygen saturations on assist-control mode mechanical ventilation with an FiO2 requirement of 25%. The patient was weaned off of Levophed yesterday afternoon. He failed his spontaneous breathing trial this morning. According to nursing staff, despite his sedation being withheld, the patient had frequent apneic episodes during his breathing trial. Hemoglobin is dropped to 7.1 g/dL. Platelet count has dropped to 34,000. Sodium is elevated at 149 with a creatinine of 1.97. Objective Data Objective Data The patient's most recent lab work, culture data and imaging studies have all been personally reviewed. Preliminary sputum culture was positive for 2+ Providencia. Vital Signs: Vital Signs Temp Pulse Resp BP Pulse Ox O2 Del Method O2 Flow Rate 99.6 F H 92 18 109/68 94 Mechanical Ventilator 9 10/17/23 07:00 10/17/23 08:00 10/17/23 08:00 10/17/23 08:00 10/17/23 08:00 10/17/23 08:00 10/16/23 11:00 FiO2 25 10/17/23 08:00 Oxygen Flow Rate (L/min) 9 Oxygen Delivery Method Mechanical Ventilator Weight: 173 lb 1.006 oz Body Mass Index (BMI) 27.9 Intake & Output: Intake and Output for Last 24 Hours 10/15/23 10/16/23 10/17/23 23:59 23:59 23:59 Intake Total 1313.35 / 1362.75 1418.68 / 1431.18 110.64 / 110.64 Output Total 550 / 650 1275 / 1425 375 / 375 Balance 763.35 / 712.75 143.68 / 6.18 -264.36 / -264.36 Lab / Micro Data Attestation: I reviewed the patient's lab results. 10/17/23 06:20 10/17/23 06:20 Labs: Laboratory Results - last 24 hr 10/16/23 04:10: Diff Path Review Reviewed 10/16/23 11:19: POC Glucose 88 10/16/23 18:19: POC Glucose 78 10/16/23 23:15: POC Glucose 74 10/17/23 05:47: POC Glucose 69 L 10/17/23 06:20: WBC 4.5, RBC 2.11 L, Hgb 7.1 L, Hct 22.3 L, MCV 105.7 H, MCH 33.6 H, MCHC 31.8 L, RDW Std Deviation 57.0 H, RDW Coeff of Jean Claude 15.1 H, Plt Count 34 L*, MPV 9.7, Immature Gran % (Auto) 0.400, Neut % (Auto) 76.1 H, Lymph % (Auto) 10.2 L, Motley % (Auto) 11.1 H, Eos % (Auto) 2.0, Baso % (Auto) 0.2, Absolute Neuts (auto) 3.4, Absolute Lymphs (auto) 0.46 L, Nucleated RBC % 0, Diff Path Review June, Sodium 149 H, Potassium 3.9, Chloride 115 H, Carbon Dioxide 28.0, Anion Gap 6, BUN 63 H, Creatinine 1.97 H, Estim Creat Clear Calc 29.48, Est GFR (MDRD) Af Amer 42 L, Est GFR (MDRD) Non-Af 35 L, BUN/Creatinine Ratio 32.0 H, Glucose 72 L, Calcium 7.8 L, Total Bilirubin 2.20 H, AST 33, ALT < 6 L, Alkaline Phosphatase 67, Total Protein 4.8 L, Albumin 2.3 L, Globulin 2.5, Albumin/Globulin Ratio 0.9 Micro: Microbiology 10/13/23 16:58 Blood Culture (Wb) - Anticubital Left Blood Culture - Preliminary No growth in 48 hours. 10/13/23 17:00 Urine, Catheterized Urine Culture - Final Mixed Gram Positive Organisms 10/13/23 17:07 Sputum, Induced/Lukens Gram Stain - Final 10/13/23 17:07 Sputum, Induced/Lukens Respiratory Culture - Final Providencia rettgeri 10/13/23 20:57 Mucosa - Nasopharyngeal Respiratory Panel (PCR) - Final 10/13/23 17:15 Mucosa - Nose SARS-CoV-2, Influenza & RSV (PCR) - Final ABG Data ABG results: ABG 10/14/23 11:52 Specimen Type ART Sample Site L Brach pH 7.65 H* Bicarbonate Actual 30.3 H Total CO2 31 Base Excess 10 H O2 Saturation 90 L O2 % 25.0 ABG pCO2 27.3 L ABG pO2 44 L Jonah Test Positive Respiration Rate 18 O2 Delivery Device Adult Vent Vent Mode AC Tidal Volume 450.0 POC PEEP 5 Crit Call To/Read Back Yes Blood Gas Notified Whom BROWN Blood Gas Notified Time 11:53:51 Physical Exam Const Constitutional Narrative: Intubated, sedated and mechanically ventilated. Jaundiced in appearance. HEENT normocephalic and head/scalp atraumatic Mouth: endotracheal tube in place Eyes PERRL Neck supple General: trachea midline Chest inspection of chest normal Resp normal respiratory effort Auscultation: diminished lung sounds Cardio regular rate and regular rhythm GI soft to palpation and non-tender Extremity General Extremity: edema; Negative for clubbing Skin no rashes or lesions noted Neuro Sensorium / Orientation: sedated on vent Psych Activity / Motor Behavior: restless Charges/Coding Procedures Hospitalists Procedures: [id number] Critical Care 1st Hr
[2023-10-17] MEDS: CHLORHEXIDINE GLUC 2% CLOTH 1 EACH TOWELETTE TOPICAL (09:54)
[2023-10-17] MEDS: Cefepime HCl 1 GM in 0.9% Normal Saline (50mL MB+) 50 ML IV (09:54)
[2023-10-17] MEDS: Lactulose 20 GM/30 ML UDC GT (09:54)
[2023-10-17] MEDS: Dextrose 5%-Water (1000mL Bag) 1,000 ML 75 ML IV ×2 (09:54→23:15)
[2023-10-17] MEDS: rifAXIMin 550 MG Tablet GT (09:55)
[2023-10-17] MEDS: Pantoprazole Sodium 40 MG in 0.9% Normal Saline (100mL MB+) 100 ML 330 MG IV (09:55)
--- NOTE | 2023-10-17 10:24 | NURSING ---
Called Maryanne to obtain consent for blood transfusion. She did not answer, left requesting callback.
[2023-10-17] MEDS: fentaNYL drip 100 ML 15 MCG CONT INF (11:48)
[2023-10-17] MEDS: Chlorhexidine 15 ML PO ×2 (13:25→23:09)
[2023-10-17 15:14] LABS: Pathologist Review Reviewed
[2023-10-17 16:44] LABS: Bedside Glucose 89 mg/dL (74-106)
[2023-10-17] MEDS: fentaNYL drip 100 ML 17.5 MCG CONT INF ×2 (18:05→23:48)
--- NOTE | 2023-10-17 22:03 | CT_ITS ---
STUDY: CT CHEST, ABDOMEN T PELVIS WITHOUT CONTRAST REASON FOR EXAM: Male, 78 years old. POSSIBLE ILIEUS, EMESIS, NON CONTRAST PLEASE RADIATION DOSAGE (If Supplied By Facility): CTDIvol = ( 24.58 ) mGy, DLP = ( 2123.98 ) mGycm TECHNIQUE: Transaxial imaging was performed without the administration of intravenous contrast material. The protocol utilizes one or more of the following dose reduction techniques: automated exposure control, adjustment of mA and/or kV according to patient size,and/or use of iterative reconstruction technique. COMPARISON: 03/04/2023 FINDINGS: CHEST Large bilateral pleural effusions with compressive atelectasis in the lung bases. There are patchy airspace opacities in the right upper lobe, right middle lobe and left lower lobe suggesting bilateral pneumonia. Normal heart and pericardium. Normal mediastinum. Normal hilar regions. Normal unenhanced pulmonary arteries. Normal aorta arch and descending thoracic aorta. Mild compression fractures are noted at T2, T4, L1, L2 likely represent acute/subacute fractures Severe compression fractures are noted at T6, T8, T9, T10, T11 likely represent acute/subacute fractures. There is mild old compression fracture of L3. ABDOMEN The visualized lung bases are unremarkable. The visualized portions of the heart are within normal limits. There is a diffuse contour abnormality of the liver consistent with cirrhotic changes. Normal gallbladder and extrahepatic biliary system. Normal spleen. Normal pancreas. Normal bilateral adrenal glands. Nonobstructive stone in the right kidney measures 7 mm. Normal left kidney. Normal visualized stomach. Normal small intestine. Normal colon. The appendix is visualized and appears normal. Normal abdominal aorta. Normal inferior vena cava. Normal retroperitoneum. Normal abdominal wall. Normal osseous structures. PELVIS Normal urinary bladder. Normal visualized small intestine. Moderate gaseous distention of the colon suggesting colonic ileus. There is no pelvic fluid. There is no pelvic lymphadenopathy or mass lesion. Normal visualized pelvic arteries. There is moderate ascites. Diffuse subcutaneous edema in the abdomen wall suggesting anasarca. Omnipaque hernia measures [address]/CT Chest, Abd, Pelvis WO Cont IMPRESSION: Large bilateral pleural effusions with compressive atelectasis in the lung bases. There are patchy airspace opacities in the right upper lobe, right middle lobe and left lower lobe suggesting bilateral pneumonia. Mild compression fractures are noted at T2, T4, L1, L2 likely represent acute/subacute fractures Severe compression fractures are noted at T6, T8, T9, T10, T11 likely represent acute/subacute fractures. Colonic ileus. There is mild old compression fracture of L3. Electronically Signed: James Fasutin MD at 8:32 EDT ,
[2023-10-17] MEDS: 0.9% Saline Lock 10 ML Syringe IV (23:10)
[2023-10-18] VITALS (37 sets, daily range): BP systolic 89–163; BP diastolic 44–81; PULSE 59–94; RESP 14–96; TEMP 36.4–37.7; O2SAT 20–99; BMI 28.0
[2023-10-18 00:36] LABS: Bedside Glucose 84 mg/dL (74-106)
[2023-10-18] MEDS: Ipratropium/Albuterol Sulfate 3 ML AMPUL.NEB INHALATION ×4 (00:38→19:47)
[2023-10-18] MEDS: fentaNYL drip 100 ML 17.5 MCG CONT INF ×3 (05:32→16:57)
[2023-10-18] MEDS: Levothyroxine 125 MCG Tablet GT (06:36)
[2023-10-18 06:48] LABS: Bedside Glucose 103 mg/dL (74-106)
[2023-10-18] MEDS: Lactulose 20 GM/30 ML UDC GT ×2 (08:14→22:16)
[2023-10-18] MEDS: rifAXIMin 550 MG Tablet GT ×2 (08:14→22:17)
[2023-10-18] MEDS: Carbidopa/Levodopa 25/100 Tablet GT ×2 (08:14→16:26)
[2023-10-18] MEDS: Chlorhexidine 15 ML PO ×2 (08:21→22:16)
[2023-10-18] MEDS: Pantoprazole Sodium 40 MG in 0.9% Normal Saline (100mL MB+) 100 ML 330 MG IV (09:19)
[2023-10-18] MEDS: CHLORHEXIDINE GLUC 2% CLOTH 1 EACH TOWELETTE TOPICAL (09:20)
[2023-10-18 09:25] LABS: Absolute Lymphocyte Count 0.53 X10^3/uL (0.83-4.51); Absolute Neutrophil Count 3.3 X10^3/uL (2.0-7.7); Basophil# 0.01 X10^3/uL; Basophil% 0.2 % (0-1); Eosinophil# 0.17 X10^3/uL; Eosinophils% 3.7 % (0-5); Hematocrit 25.1 % (40-54); Lymphocyte # 0.53 X10^3/ul (0.83-4.51); Lymphocyte % 11.6 % (19-41); Mean Corp Hgb Conc 31.9 g/dL (32-36); Mean Corpuscular Hgb 33.3 pg (27.0-32.0); Mean Corpuscular Volume 104.6 fL (80-94); Mean Platelet Vol. 10.3 fl (6.2-12.0); Monocyte# 0.52 X10^3/uL; Monocyte% 11.4 % (0-10); NRBC Flagged by Analyzer 0 % (0-5); Neutrophil # 3.31 X10^3/uL (2.7-7.7); Neutrophil % 72.7 % (47-70); POSITIVE COUNT YES; POSITIVE DIFFERENTIAL YES; Platelet Count 44 K/mm3 (150-450); RBC Distribution Width CV 16.8 % (11.6-14.6); RBC Distribution Width SD 63.5 fl (35.1-43.9); White Blood Count 4.6 K/mm3 (4.4-11.0)
[2023-10-18 09:26] LABS: Differential Indicated SCAN CRITERIA MET
[2023-10-18 09:54] LABS: Platelet Estimate MKD DEC (ADEQ)
[2023-10-18] MEDS: Cefepime HCl 1 GM in 0.9% Normal Saline (50mL MB+) 50 ML IV (11:14)
[2023-10-18 12:31] LABS: Bedside Glucose 95 mg/dL (74-106)
[2023-10-18] MEDS: Dextrose 5%-Water (1000mL Bag) 1,000 ML 75 ML IV (12:38)
--- NOTE | 2023-10-18 12:41 | PN.CC_ITS ---
Objective Data Objective Data Vital Signs: Vital Signs Last response 3 Temperature 37.7 C H 10/18/23 12:00 Temperature Source Core 10/18/23 12:00 Pulse Rate 86 10/18/23 12:00 Pulse Strength Weak (1+) 10/18/23 08:30 Respiratory Rate 16 10/18/23 12:00 Respiratory Effort Mechanically Ventilated 10/18/23 08:00 Respiratory Depth Normal 10/18/23 08:00 Respiratory Pattern Normal 10/18/23 10:10 Blood Pressure 104/70 10/18/23 12:00 Blood Pressure Mean 81 10/18/23 12:00 Blood Pressure Source Monitor 10/18/23 12:00 Blood Pressure Position Semi-Fowlers 10/18/23 12:00 Blood Pressure Location Left Arm 10/18/23 12:00 Pulse Ox 95 10/18/23 12:00 Oxygen Delivery Method Mechanical Ventilator 10/18/23 12:00 Oxygen Flow Rate (L/min) 9 10/16/23 11:00 Fraction of Inspired Oxygen (FIO2) 25 10/18/23 12:00 I&O: I&O Last 24 Hours 3 10/17/23 10/18/23 10/18/23 23:59 11:59 23:59 Intake Total 1260.46 / 1642.09 580.00 / 1630.00 1050 / 1630.00 Output Total 500 / 1025 1110 / 1360 250 / 1360 Balance 760.46 / 617.09 -530.00 / 270.00 800 / 270.00 I&O: Total Stay 3 10/13/23 16:47 thru 10/18/23 12:35 Intake Total 87085.34 Output Total 9935 Balance 1983.34 Current Meds Ordered / Administered: Current meds ordered / Administered 3 Generic Name Dose Route Start Last Admin Trade Name Freq PRN Reason Stop Dose Admin Albuterol Sulfate 2.5 mg 10/13/23 19:39 Albuterol 2.5 Mg/3 Ml Vial.Neb. INHALATION Q2H PRN PRN SOB &/OR WHEEZING Albuterol/Ipratropium 3 ml 10/13/23 19:39 10/18/23 07:14 Ipratropium/Albuterol Sulfate 3 Ml Ampul.Neb INHALATION 3 ml Q6H.RT SIMONA Administration Carbidopa/Levodopa 2 tablet 10/16/23 07:00 10/18/23 12:15 Carbidopa/Levodopa 25/100 Tablet GT Not Given TIDAC SIMONA Chlorhexidine Gluconate 1 each 10/14/23 10:00 10/18/23 09:20 Chlorhexidine Gluc 2% Cloth 1 Each Towelette TOPICAL 1 each DAILY SIMONA Administration Chlorhexidine Gluconate 15 ml 10/13/23 22:00 10/18/23 08:21 Chlorhexidine 15 Ml PO 15 ml BID SIMONA Administration Glucagon 1 mg 10/13/23 19:39 Glucagon 1 Mg/Ml Syringe IM X1 PRN HYPOGLYCEMIA Protocol Propofol 1,000 mg in 100 mls @ 4.764 mls/hr 10/13/23 17:00 10/18/23 06:35 Diprivan CONT INF Not Given .Q12H SIMONA Protocol 10 MCG/KG/MIN Fentanyl 100 mls @ 2.5 mls/hr 10/13/23 17:15 10/18/23 11:17 CONT INF 175 mcg/hr UD SIMONA 17.5 mls/hr Administration Protocol 25 MCG/HR Norepinephrine Bitartrate 8 mg 250 mls @ 9.375 mls/hr 10/13/23 18:50 10/18/23 06:35 / Sodium Chloride CONT INF Not Given .[id number] SIMONA Protocol 5 MCG/MIN Pantoprazole Sodium 40 mg/ 110 mls @ 330 mls/hr 10/14/23 10:00 10/18/23 09:41 Sodium Chloride IV Infused Q24 SIMONA Infusion Dextrose 250 mls @ 0 mls/hr 10/13/23 19:39 Dextrose 10%-Water IV .Q0M PRN HYPOGLYCEMIA Protocol As Directed Sodium Chloride 250 mls @ 15 mls/hr 10/13/23 20:00 10/14/23 13:00 IV 0 mls/hr .[id number] PRN Infusion Additional IVPB Infusion Sodium Chloride 250 mls @ 15 mls/hr 10/13/23 20:00 IV .[id number] PRN Saline Flush Cefepime HCl 1 gm/ Sodium 50 mls @ 100 mls/hr 10/16/23 10:00 10/18/23 12:03 Chloride IV Infused Q24 SIMONA Infusion Dextrose 1,000 mls @ 75 mls/hr 10/17/23 08:55 10/18/23 12:38 IV 75 mls/hr .[id number] SIMONA Administration Insulin Human Lispro 0 unit 10/14/23 00:00 10/18/23 12:15 Insulin Lispro 100 Unit/Ml Insuln.Pen SC Not Given Q6 [facility] Protocol Lactulose 20 gm 10/15/23 22:00 10/18/23 08:14 Lactulose 20 Gm/30 Ml Udc GT 20 gm BID SIMONA Administration Levothyroxine Sodium 125 mcg 10/16/23 06:00 10/18/23 06:36 Levothyroxine 125 Mcg Tablet GT 125 mcg DAILY@0600 [facility] Administration Melatonin 3 mg 10/15/23 21:35 Melatonin 3 Mg Tablet GT QHS PRN PRN INSOMNIA Ondansetron HCl 4 mg 10/13/23 19:39 Ondansetron 4 Mg/2 Ml Vial IV Q8H PRN PRN NAUSEA/VOMITING Rifaximin 550 mg 10/15/23 22:00 10/18/23 08:14 Rifaximin 550 Mg Tablet GT 550 mg BID SIMONA Administration Senna/Docusate Sodium 2 tablet 10/15/23 21:35 Senna/Docusate Sodium 1 Tablet GT BID PRN Constipation Sodium Chloride 10 - 40 ml 10/13/23 20:00 10/17/23 23:10 0.9% Saline Lock 10 Ml Syringe IV 40 ml UD PRN Administration SALINE FLUSH Tamsulosin HCl 0.8 mg 10/13/23 22:00 10/17/23 23:10 Tamsulosin Hcl 0.4 Mg Capsule PO Not Given QHS [facility] Lab / Micro Data 10/18/23 09:15 10/17/23 06:20 Labs: Laboratory Results - last 24 hr 10/16/23 06:20: Crossmatch See Detail 10/17/23 06:20: Diff Path Review Reviewed 10/17/23 16:23: POC Glucose 89 10/18/23 00:15: POC Glucose 84 10/18/23 06:30: POC Glucose 103 10/18/23 09:15: WBC 4.6, RBC 2.40 L, Hgb 8.0 L, Hct 25.1 L, MCV 104.6 H, MCH 33.3 H, MCHC 31.9 L, RDW Std Deviation 63.5 H, RDW Coeff of Jean Claude 16.8 H, Plt Count 44 L*, MPV 10.3, Immature Gran % (Auto) 0.400, Neut % (Auto) 72.7 H, Lymph % (Auto) 11.6 L, Caroline % (Auto) 11.4 H, Eos % (Auto) 3.7, Baso % (Auto) 0.2, Absolute Neuts (auto) 3.3, Absolute Lymphs (auto) 0.53 L, Nucleated RBC % 0, Diff Path Review May foll, Platelet Estimate MKD 10/18/23 12:13: POC Glucose 95 Imaging Radiology Impression Chest/Abdomen/Pelvis CT 10/17/23 22:03 IMPRESSION: Large bilateral pleural effusions with compressive atelectasis in the lung bases. There are patchy airspace opacities in the right upper lobe, right middle lobe and left lower lobe suggesting bilateral pneumonia. Mild compression fractures are noted at T2, T4, L1, L2 likely represent acute/subacute fractures Severe compression fractures are noted at T6, T8, T9, T10, T11 likely represent acute/subacute fractures. Colonic ileus. There is mild old compression fracture of L3. Electronically Signed: James Faustin MD at 8:32 EDT Reading Location ID and State: [facility] / [place] Tel , Service support , Assessment and Plan . Assessment and plan: Patient seen and examined Chart and data reviewed HPI 78 yo man w/ advanced chronic liver disease and suspected COPD, now requiring MV support and w/ decompensated liver disease. He is sedated, but remains confused and restless Vasopressors off currently UOP poor No recent BM Modest MV requirement Recent CT reviewed PHYSICAL EXAM GEN restless and confused VS as above HEENT SULMA NECK obese COR RRR CHEST coarse ABD soft, distended EXT pitting edema SKIN w/d JAKE delirium ASSESSMENT 1. Acute respiratory failure requiring MV support 2. Delirium / encephalopathy 3. Hypervolemia w/ bilateral effusions 4. Suspected underlying COPD 5. Advanced chronic liver disease w/ portal HTN 6. Renal insufficiency w/ oliguria 7. Pancytopenia 8. Hypernatremia 9. Possible VAP 10. Ileus TREATMENT PLAN -MV support -use propofol as needed and try to wean opioids off -receiving lactulose, ABX, loop diuretics -follow renal function and Na+, repeat NH3+ -TF as able -free water -holding all A/C for now Critical Care Time: 50 min The entirety of this encounter was done via Telemedicine
[2023-10-18] MEDS: Propofol 10MG/Ml 1,000 MG/100 ML Bottle 2.4 MG CONT INF (14:14)
--- NOTE | 2023-10-18 14:27 | PN.HOSP_ITS ---
Reason for Visit Reason for Visit: Diagnoses Chronic obstructive pulmonary disease, unspecified (10/13/23) Acute respiratory failure with hypercapnia (10/13/23) Respiratory failure, unspecified, unspecified whether with hypoxia or hypercapnia (10/13/23) Other ascites (10/13/23) Subjective Subjective Patient was seen and examined today, he is sedated on the ventilator. Patient's hemoglobin today was 8, platelet count was 44,000. Objective Data Objective Data Vital Signs: Vital Signs Temp Pulse Resp BP Pulse Ox O2 Del Method O2 Flow Rate 99.8 F H 89 20 H 104/70 95 Mechanical Ventilator 9 10/18/23 12:00 10/18/23 14:15 10/18/23 14:15 10/18/23 12:00 10/18/23 14:15 10/18/23 12:00 10/16/23 11:00 FiO2 25 10/18/23 14:15 Oxygen Flow Rate (L/min) 9 Oxygen Delivery Method Mechanical Ventilator Weight: 78.8 kg Body Mass Index (BMI) 28.0 Intake & Output: Intake and Output for Last 24 Hours 10/16/23 10/17/23 10/18/23 23:59 23:59 23:59 Intake Total 1418.68 / 1431.18 1578.59 / 1642.09 1630.00 / 1630.00 Output Total 1275 / 1425 875 / 1025 1360 / 1360 Balance 143.68 / 6.18 703.59 / 617.09 270.00 / 270.00 Lab / Micro Data 10/18/23 09:15 10/17/23 06:20 Labs: Laboratory Results - last 24 hr 10/16/23 06:20: Crossmatch See Detail 10/17/23 06:20: Diff Path Review Reviewed 10/17/23 16:23: POC Glucose 89 10/18/23 00:15: POC Glucose 84 10/18/23 06:30: POC Glucose 103 10/18/23 09:15: WBC 4.6, RBC 2.40 L, Hgb 8.0 L, Hct 25.1 L, MCV 104.6 H, MCH 33.3 H, MCHC 31.9 L, RDW Std Deviation 63.5 H, RDW Coeff of Jean Claude 16.8 H, Plt Count 44 L*, MPV 10.3, Immature Gran % (Auto) 0.400, Neut % (Auto) 72.7 H, Lymph % (Auto) 11.6 L, [place] % (Auto) 11.4 H, Eos % (Auto) 3.7, Baso % (Auto) 0.2, Absolute Neuts (auto) 3.3, Absolute Lymphs (auto) 0.53 L, Nucleated RBC % 0, Diff Path Review June foll, Platelet Estimate MKD 10/18/23 12:13: POC Glucose 95 Micro: Microbiology 10/13/23 16:58 Blood Culture (Wb) - Anticubital Left Blood Culture - Preliminary No growth in 48 hours. 10/13/23 17:00 Urine, Catheterized Urine Culture - Final Mixed Gram Positive Organisms 10/13/23 17:07 Sputum, Induced/Lukens Gram Stain - Final 10/13/23 17:07 Sputum, Induced/Lukens Respiratory Culture - Final Providencia rettgeri 10/13/23 20:57 Mucosa - Nasopharyngeal Respiratory Panel (PCR) - Final 10/13/23 17:15 Mucosa - Nose SARS-CoV-2, Influenza & RSV (PCR) - Final Radiography Diagnostic Testing: Radiology Impression Chest/Abdomen/Pelvis CT 10/17/23 22:03 IMPRESSION: Large bilateral pleural effusions with compressive atelectasis in the lung bases. There are patchy airspace opacities in the right upper lobe, right middle lobe and left lower lobe suggesting bilateral pneumonia. Mild compression fractures are noted at T2, T4, L1, L2 likely represent acute/subacute fractures Severe compression fractures are noted at T6, T8, T9, T10, T11 likely represent acute/subacute fractures. Colonic ileus. There is mild old compression fracture of L3. Electronically Signed: James Faustin MD at 8:32 EDT , Physical Exam Narrative Constitutional Narrative: Patient is sedated and on the ventilator, he appears older than his stated age and frail General Appearance: well developed HEENT normocephalic, head/scalp atraumatic and moist oral mucous membranes Eyes conjunctivae normal Neck no JVD and thyroid normal General: trachea midline Resp normal respiratory effort and clear to auscultation bilaterally Auscultation: Negative for rales, rhonchi or wheezes Cardio regular rate, regular rhythm, S1 normal heart sound, S2 normal heart sound, no murmurs, no rub and no gallops GI normal to inspection, nondistended, normoactive bowel sounds, soft to palpation and non-distended Extremity no clubbing, cyanosis or edema Skin Skin Narrative: Patient appears jaundiced Neuro Neuro Narrative: Patient is sedated and on the ventilator Psych Psych Narrative: Patient is sedated and on the ventilator Assessment & Plan Assessment/Plan (1) Respiratory failure requiring intubation: (2) COPD (chronic obstructive pulmonary disease): PLAN: Plan 1. Combined respiratory failure-patient remains on the ventilator at this time under sedation, critical care is participating in his care, patient will be continued on bronchodilators and empiric antibiotics, pulse ox will be monitored #2 acute metabolic encephalopathy-secondary to cirrhosis- he is receiving lactulose and Xifaxan #3 chronic liver cirrhosis with decompensation-patient underwent paracentesis this admission #4 distributive shock-patient requires pressor support at this time from relative hypovolemia versus sepsis, he is on empiric antibiotics at this time #5 Parkinson's disease-complicates care, management, recovery, and prognosis, patient is on Sinemet #6 type 2 diabetes-blood sugars will be monitored, sliding scale insulin will be administered as needed #7 hypothyroidism-patient is on Synthroid #8 elevated creatinine-due to hypovolemia and cirrhosis-Labs will be monitored, creatinine is improved today #9 anemia-patient will be transfused if his hemoglobin drops below 7, etiology of the anemia is unknown at this time, hemoglobin appears to be stable at this time #10 pneumonia-patient's sputum grew out Providencia, he is currently on antibiotics Total clinical time spent by myself addressing the patient's medical issues, reviewing all of his data, and collaborating with patient's care team: 35 minutes Charges/Coding Visit Charges Inpatient E&M: 82559 Subs Hosp L2
[2023-10-18 16:50] LABS: Bedside Glucose 119 mg/dL (74-106)
[2023-10-18 19:47] LABS: Bedside Glucose 123 mg/dL (74-106)
[2023-10-18] MEDS: Norepinephrine 8 MG in 0.9% Normal Saline (250mL Bag) 242 ML 9.4 MG CONT INF (21:31)
[2023-10-18] MEDS: Tamsulosin HCl 0.4 MG Capsule 0.8 MG PO (22:17)
[2023-10-18] MEDS: fentaNYL drip 100 ML 15 MCG CONT INF (22:57)
[2023-10-19] VITALS (47 sets, daily range): BP systolic 71–122; BP diastolic 43–97; PULSE 46–85; RESP 12–19; TEMP 36.1–37.1; O2SAT 94–99; BMI 28.2
[2023-10-19] MEDS: Ipratropium/Albuterol Sulfate 3 ML AMPUL.NEB INHALATION ×4 (01:13→19:32)
[2023-10-19] MEDS: Dextrose 5%-Water (1000mL Bag) 1,000 ML 75 ML IV ×2 (01:23→13:33)
[2023-10-19] MEDS: Propofol 10MG/Ml 1,000 MG/100 ML Bottle 9.5 MG CONT INF (03:06)
[2023-10-19 04:07] LABS: Absolute Lymphocyte Count 0.72 X10^3/uL (0.83-4.51); Absolute Neutrophil Count 3.4 X10^3/uL (2.0-7.7); Basophil# 0.02 X10^3/uL; Basophil% 0.4 % (0-1); Eosinophil# 0.33 X10^3/uL; Eosinophils% 6.1 % (0-5); Hematocrit 27.4 % (40-54); Hemoglobin 8.9 g/dL (13.0-16.5); Lymphocyte # 0.72 X10^3/ul (0.83-4.51); Lymphocyte % 13.4 % (19-41); Mean Corp Hgb Conc 32.5 g/dL (32-36); Mean Corpuscular Hgb 33.3 pg (27.0-32.0); Mean Corpuscular Volume 102.6 fL (80-94); Mean Platelet Vol. 10.6 fl (6.2-12.0); Monocyte# 0.83 X10^3/uL; Monocyte% 15.4 % (0-10); NRBC Flagged by Analyzer 0 % (0-5); Neutrophil # 3.41 X10^3/uL (2.7-7.7); Neutrophil % 63.2 % (47-70); POSITIVE COUNT YES; Platelet Count 65 K/mm3 (150-450); RBC Distribution Width CV 16.7 % (11.6-14.6); RBC Distribution Width SD 61.5 fl (35.1-43.9); Red Blood Count 2.67 M/mm3 (4.6-6.2); White Blood Count 5.4 K/mm3 (4.4-11.0)
[2023-10-19 04:30] LABS: ALB/GLOB Ratio 0.8 RATIO (0.9-2.4); AST(SGOT) 36 U/L (15-37); Alanine Aminotransfer ALT/SGPT < 6 U/L (16-61); Albumin, Serum 2.3 g/dL (3.2-5.0); Alkaline Phosphatase 76 U/L (45-117); Anion Gap 7 (5-15); BUN 51 mg/dL (7-18); BUN/Creat Ratio 32.3 RATIO (10-20); Calcium,Total 7.5 mg/dL (8.5-10.1); Chloride 109 mmol/L (98-107); Creatinine, Serum 1.58 mg/dL (0.70-1.30); EST Glomerular Filtration Rate 45 mL/min (>60); Est Glom Filt Rate - Afr Amer 55 mL/min (>60); Estimated Creatinine Clearance 36.81 ml/min; Globulin 2.8 g/dL (2.2-4.2); Glucose 164 mg/dL (74-106); Potassium 3.1 mmol/L (3.5-5.1); Protein, Total 5.1 g/dL (6.4-8.2); Sodium Level 143 mmol/L (136-145)
[2023-10-19] MEDS: fentaNYL drip 100 ML 15 MCG CONT INF (05:25)
[2023-10-19] MEDS: Levothyroxine 125 MCG Tablet GT (05:50)
[2023-10-19] MEDS: Carbidopa/Levodopa 25/100 Tablet GT ×3 (05:50→16:34)
[2023-10-19 06:09] LABS: Bedside Glucose 144 mg/dL (74-106)
[2023-10-19] MEDS: rifAXIMin 550 MG Tablet GT ×2 (07:46→21:02)
[2023-10-19] MEDS: Lactulose 20 GM/30 ML UDC GT ×3 (07:46→21:02)
[2023-10-19] MEDS: Chlorhexidine 15 ML PO ×2 (07:51→21:02)
[2023-10-19] MEDS: Pantoprazole Sodium 40 MG in 0.9% Normal Saline (100mL MB+) 100 ML 330 MG IV (07:52)
--- NOTE | 2023-10-19 08:31 | PCM.PN.HOSP ---
Reason for Visit Reason for Visit: Diagnoses Chronic obstructive pulmonary disease, unspecified (10/13/23) Acute respiratory failure with hypercapnia (10/13/23) Respiratory failure, unspecified, unspecified whether with hypoxia or hypercapnia (10/13/23) Other ascites (10/13/23) Subjective Subjective Patient was seen and examined today, his creatinine has improved to 1.58, potassium is low at 3.1, hemoglobin is stable at this time, platelet count of 65,000. Patient still has not had a stool today. Objective Data Objective Data Vital Signs: Vital Signs Temp Pulse Resp BP Pulse Ox O2 Del Method O2 Flow Rate 98.7 F 73 19 H 101/60 96 Mechanical Ventilator 9 10/19/23 08:00 10/19/23 08:00 10/19/23 08:00 10/19/23 08:15 10/19/23 08:00 10/19/23 08:00 10/16/23 11:00 FiO2 25 10/19/23 08:00 Oxygen Flow Rate (L/min) 9 Oxygen Delivery Method Mechanical Ventilator Weight: 79.7 kg Body Mass Index (BMI) 28.2 Intake & Output: Intake and Output for Last 24 Hours 10/17/23 10/18/23 10/19/23 23:59 23:59 23:59 Intake Total 1578.59 / 1642.09 1969.35 / 1998.40 1416.42 / 1416.42 Output Total 875 / 1025 1635 / 1635 500 / 500 Balance 703.59 / 617.09 334.35 / 363.40 916.42 / 916.42 Lab / Micro Data 10/19/23 03:50 10/19/23 03:50 Labs: Laboratory Results - last 24 hr 10/18/23 09:15: WBC 4.6, RBC 2.40 L, Hgb 8.0 L, Hct 25.1 L, MCV 104.6 H, MCH 33.3 H, MCHC 31.9 L, RDW Std Deviation 63.5 H, RDW Coeff of Jean Claude 16.8 H, Plt Count 44 L*, MPV 10.3, Immature Gran % (Auto) 0.400, Neut % (Auto) 72.7 H, Lymph % (Auto) 11.6 L, [place] % (Auto) 11.4 H, Eos % (Auto) 3.7, Baso % (Auto) 0.2, Absolute Neuts (auto) 3.3, Absolute Lymphs (auto) 0.53 L, Nucleated RBC % 0, Diff Path Review June, Platelet Estimate MKD 10/18/23 12:13: POC Glucose 95 10/18/23 16:30: POC Glucose 119 H 10/18/23 19:28: POC Glucose 123 H 10/19/23 03:50: WBC 5.4, RBC 2.67 L, Hgb 8.9 L, Hct 27.4 L, MCV 102.6 H, MCH 33.3 H, MCHC 32.5, RDW Std Deviation 61.5 H, RDW Coeff of Jean Claude 16.7 H, Plt Count 65 L, MPV 10.6, Immature Gran % (Auto) 1.500 H, Neut % (Auto) 63.2, Lymph % (Auto) 13.4 L, [place] % (Auto) 15.4 H, Eos % (Auto) 6.1 H, Baso % (Auto) 0.4, Absolute Neuts (auto) 3.4, Absolute Lymphs (auto) 0.72 L, Nucleated RBC % 0, Sodium 143, Potassium 3.1 L, Chloride 109 H, Carbon Dioxide 27.0, Anion Gap 7, BUN 51 H, Creatinine 1.58 H, Estim Creat Clear Calc 36.81, Est GFR (MDRD) Af Amer 55 L, Est GFR (MDRD) Non-Af 45 L, BUN/Creatinine Ratio 32.3 H, Glucose 164 H, Calcium 7.5 L, Total Bilirubin 2.30 H, AST 36, ALT < 6 L, Alkaline Phosphatase 76, Total Protein 5.1 L, Albumin 2.3 L, Globulin 2.8, Albumin/Globulin Ratio 0.8 L 10/19/23 05:46: POC Glucose 144 H Micro: Microbiology 10/13/23 16:58 Blood Culture (Wb) - Anticubital Left Blood Culture - Final No growth in 5 days. 10/13/23 17:00 Urine, Catheterized Urine Culture - Final Mixed Gram Positive Organisms 10/13/23 17:07 Sputum, Induced/Lukens Gram Stain - Final 10/13/23 17:07 Sputum, Induced/Lukens Respiratory Culture - Final Providencia rettgeri 10/13/23 20:57 Mucosa - Nasopharyngeal Respiratory Panel (PCR) - Final 10/13/23 17:15 Mucosa - Nose SARS-CoV-2, Influenza & RSV (PCR) - Final Radiography Diagnostic Testing: Radiology Impression Chest/Abdomen/Pelvis CT 10/17/23 22:03 IMPRESSION: Large bilateral pleural effusions with compressive atelectasis in the lung bases. There are patchy airspace opacities in the right upper lobe, right middle lobe and left lower lobe suggesting bilateral pneumonia. Mild compression fractures are noted at T2, T4, L1, L2 likely represent acute/subacute fractures Severe compression fractures are noted at T6, T8, T9, T10, T11 likely represent acute/subacute fractures. Colonic ileus. There is mild old compression fracture of L3. Electronically Signed: James Faustin MD at 8:32 EDT , Physical Exam Narrative Constitutional Narrative: Patient is sedated and on the ventilator, he appears older than his stated age and frail General Appearance: well developed HEENT normocephalic, head/scalp atraumatic and moist oral mucous membranes Eyes conjunctivae normal Neck no JVD and thyroid normal General: trachea midline Resp normal respiratory effort and clear to auscultation bilaterally Auscultation: Negative for rales, rhonchi or wheezes Cardio regular rate, regular rhythm, S1 normal heart sound, S2 normal heart sound, no murmurs, no rub and no gallops GI normal to inspection, nondistended, normoactive bowel sounds, soft to palpation and non-distended Extremity no clubbing, cyanosis or edema Skin Skin Narrative: Patient appears jaundiced Neuro Neuro Narrative: Patient is sedated and on the ventilator Psych Psych Narrative: Patient is sedated and on the ventilator Assessment & Plan Assessment/Plan (1) Respiratory failure requiring intubation: (2) COPD (chronic obstructive pulmonary disease): PLAN: Plan 1. Combined respiratory failure-patient remains on the ventilator at this time under sedation, critical care is participating in his care, patient will be continued on bronchodilators and empiric antibiotics, pulse ox will be monitored #2 acute metabolic encephalopathy-secondary to cirrhosis- he is receiving lactulose and Xifaxan #3 chronic liver cirrhosis with decompensation-patient underwent paracentesis this admission #4 distributive shock-patient requires pressor support at this time from relative hypovolemia versus sepsis, he is on empiric antibiotics at this time, I have decided to place the patient on midodrine #5 Parkinson's disease-complicates care, management, recovery, and prognosis, patient is on Sinemet #6 type 2 diabetes-blood sugars will be monitored, sliding scale insulin will be administered as needed #7 hypothyroidism-patient is on Synthroid #8 elevated creatinine-due to hypovolemia and cirrhosis-Labs will be monitored, creatinine is improved today #9 anemia-patient will be transfused if his hemoglobin drops below 7, etiology of the anemia is unknown at this time, hemoglobin appears to be stable at this time #10 pneumonia-patient's sputum grew out Providencia, he is currently on antibiotics Total clinical time spent by myself addressing the patient's medical issues, reviewing all of his data, and collaborating with patient's care team: 35 minutes Charges/Coding Visit Charges Inpatient E&M: 30815 Subs Hosp L2
[2023-10-19] MEDS: Cefepime HCl 1 GM in 0.9% Normal Saline (50mL MB+) 50 ML IV (09:06)
[2023-10-19] MEDS: CHLORHEXIDINE GLUC 2% CLOTH 1 EACH TOWELETTE TOPICAL (09:07)
[2023-10-19] MEDS: Midodrine HCl 5 MG Tablet 10 MG NG ×2 (11:07→16:34)
[2023-10-19 11:31] LABS: Bedside Glucose 136 mg/dL (74-106)
[2023-10-19 11:34] LABS: Bedside Glucose 155 mg/dL (74-106)
--- NOTE | 2023-10-19 13:07 | PN.CC_ITS ---
Objective Data Objective Data Vital Signs: Vital Signs Last response 3 Temperature 37.1 C 10/19/23 12:00 Temperature Source Temporal 10/19/23 12:00 Pulse Rate 54 L 10/19/23 13:00 Pulse Strength Weak (1+) 10/19/23 07:19 Respiratory Rate 14 10/19/23 13:00 Respiratory Effort Mechanically Ventilated 10/19/23 11:53 Respiratory Depth Normal 10/19/23 11:53 Respiratory Pattern Normal 10/19/23 11:53 Blood Pressure 104/57 L 10/19/23 13:00 Blood Pressure Mean 72 10/19/23 13:00 Blood Pressure Source Monitor 10/19/23 13:00 Blood Pressure Position Semi-Fowlers 10/19/23 12:00 Blood Pressure Location Left Arm 10/19/23 12:00 Pulse Ox 97 10/19/23 13:00 Oxygen Delivery Method Mechanical Ventilator 10/19/23 13:00 Oxygen Flow Rate (L/min) 9 10/16/23 11:00 Fraction of Inspired Oxygen (FIO2) 25 10/19/23 13:00 I&O: I&O Last 24 Hours 3 10/18/23 10/19/23 10/19/23 23:59 11:59 23:59 Intake Total 1389.35 / 1998.40 1607.36 / 1635.76 28.4 / 1635.76 Output Total 525 / 1635 775 / 775 Balance 864.35 / 363.40 832.36 / 860.76 28.4 / 860.76 I&O: Total Stay 3 10/13/23 16:47 thru 10/19/23 13:00 Intake Total 67884.45 Output Total 65862 Balance 2908.45 Current Meds Ordered / Administered: Current meds ordered / Administered 3 Generic Name Dose Route Start Last Admin Trade Name Freq PRN Reason Stop Dose Admin Albuterol Sulfate 2.5 mg 10/13/23 19:39 Albuterol 2.5 Mg/3 Ml Vial.Neb. INHALATION Q2H PRN PRN SOB &/OR WHEEZING Albuterol/Ipratropium 3 ml 10/13/23 19:39 10/19/23 07:15 Ipratropium/Albuterol Sulfate 3 Ml Ampul.Neb INHALATION 3 ml Q6H.RT SIMONA Administration Carbidopa/Levodopa 2 tablet 10/16/23 07:00 10/19/23 11:07 Carbidopa/Levodopa 25/100 Tablet GT 2 tablet TIDAC SIMONA Administration Chlorhexidine Gluconate 1 each 10/14/23 10:00 10/19/23 09:07 Chlorhexidine Gluc 2% Cloth 1 Each Towelette TOPICAL 1 each DAILY SIMONA Administration Chlorhexidine Gluconate 15 ml 10/13/23 22:00 10/19/23 07:51 Chlorhexidine 15 Ml PO 15 ml BID SIMONA Administration Glucagon 1 mg 10/13/23 19:39 Glucagon 1 Mg/Ml Syringe IM X1 PRN HYPOGLYCEMIA Protocol Propofol 1,000 mg in 100 mls @ 4.764 mls/hr 10/13/23 17:00 10/19/23 13:00 Diprivan CONT INF 10 mcg/kg/min .Q12H SIMONA 4.8 mls/hr Titration Protocol 10 MCG/KG/MIN Fentanyl 100 mls @ 2.5 mls/hr 10/13/23 17:15 10/19/23 13:00 CONT INF 75 mcg/hr UD SIMONA 7.5 mls/hr Titration Protocol 25 MCG/HR Norepinephrine Bitartrate 8 mg 250 mls @ 9.375 mls/hr 10/13/23 18:50 10/19/23 13:00 / Sodium Chloride CONT INF 1 mcg/min .[id number] SIMONA 1.9 mls/hr Titration Protocol 5 MCG/MIN Pantoprazole Sodium 40 mg/ 110 mls @ 330 mls/hr 10/14/23 10:00 10/19/23 08:12 Sodium Chloride IV Infused Q24 SIMONA Infusion Dextrose 250 mls @ 0 mls/hr 10/13/23 19:39 Dextrose 10%-Water IV .Q0M PRN HYPOGLYCEMIA Protocol As Directed Sodium Chloride 250 mls @ 15 mls/hr 10/13/23 20:00 10/14/23 13:00 IV 0 mls/hr .[id number] PRN Infusion Additional IVPB Infusion Sodium Chloride 250 mls @ 15 mls/hr 10/13/23 20:00 IV .[id number] PRN Saline Flush Cefepime HCl 1 gm/ Sodium 50 mls @ 100 mls/hr 10/16/23 10:00 10/19/23 09:45 Chloride IV Infused Q24 SIMONA Infusion Dextrose 1,000 mls @ 75 mls/hr 10/17/23 08:55 10/19/23 01:23 IV 75 mls/hr .[id number] [facility] Administration Insulin Human Lispro 0 unit 10/14/23 00:00 10/19/23 11:33 Insulin Lispro 100 Unit/Ml Insuln.Pen SC Not Given Q6 [facility] Protocol Lactulose 20 gm 10/19/23 14:00 Lactulose 20 Gm/30 Ml Udc GT TID SIMONA Levothyroxine Sodium 125 mcg 10/16/23 06:00 10/19/23 05:50 Levothyroxine 125 Mcg Tablet GT 125 mcg DAILY@0600 SIMONA Administration Melatonin 3 mg 10/15/23 21:35 Melatonin 3 Mg Tablet GT QHS PRN PRN INSOMNIA Midodrine 10 mg 10/19/23 12:00 10/19/23 11:07 Midodrine Hcl 5 Mg Tablet NG 10 mg TIDCM [facility] Administration Ondansetron HCl 4 mg 10/13/23 19:39 Ondansetron 4 Mg/2 Ml Vial IV Q8H PRN PRN NAUSEA/VOMITING Rifaximin 550 mg 10/15/23 22:00 10/19/23 07:46 Rifaximin 550 Mg Tablet GT 550 mg BID SIMONA Administration Senna/Docusate Sodium 2 tablet 10/15/23 21:35 Senna/Docusate Sodium 1 Tablet GT BID PRN Constipation Sodium Chloride 10 - 40 ml 10/13/23 20:00 10/17/23 23:10 0.9% Saline Lock 10 Ml Syringe IV 40 ml UD PRN Administration SALINE FLUSH Tamsulosin HCl 0.8 mg 10/13/23 22:00 10/18/23 22:17 Tamsulosin Hcl 0.4 Mg Capsule PO 0.8 mg QHS SIMONA Administration Lab / Micro Data 10/19/23 03:50 10/19/23 03:50 Labs: Laboratory Results - last 24 hr 10/18/23 16:30: POC Glucose 119 H 10/18/23 19:28: POC Glucose 123 H 10/18/23 23:52: POC Glucose 136 H 10/19/23 03:50: WBC 5.4, RBC 2.67 L, Hgb 8.9 L, Hct 27.4 L, MCV 102.6 H, MCH 33.3 H, MCHC 32.5, RDW Std Deviation 61.5 H, RDW Coeff of Jean Claude 16.7 H, Plt Count 65 L, MPV 10.6, Immature Gran % (Auto) 1.500 H, Neut % (Auto) 63.2, Lymph % (Auto) 13.4 L, [place] % (Auto) 15.4 H, Eos % (Auto) 6.1 H, Baso % (Auto) 0.4, Absolute Neuts (auto) 3.4, Absolute Lymphs (auto) 0.72 L, Nucleated RBC % 0, Sodium 143, Potassium 3.1 L, Chloride 109 H, Carbon Dioxide 27.0, Anion Gap 7, B UN 51 H, Creatinine 1.58 H, Estim Creat Clear Calc 36.81, Est GFR (MDRD) Af Amer 55 L, Est GFR (MDRD) Non-Af 45 L, BUN/Creatinine Ratio 32.3 H, Glucose 164 H, C alcium 7.5 L, Total Bilirubin 2.30 H, AST 36, ALT < 6 L, Alkaline Phosphatase 76, Total Protein 5.1 L, Albumin 2.3 L, Globulin 2.8, Albumin/Globulin Ratio 0.8 L 10/19/23 05:46: POC Glucose 144 H 10/19/23 11:17: POC Glucose 155 H Micro: Microbiology 10/13/23 16:58 Blood Culture (Wb) - Anticubital Left Blood Culture - Final No growth in 5 days. Assessment and Plan . Assessment and plan: Patient seen and examined Chart and data reviewed HPI 78 yo man w/ advanced chronic liver disease and suspected COPD, now requiring MV support and w/ decompensated liver disease. He is sedated, more calm and responsive today Vasopressors off currently UOP remains poor, renal function a bit better; Na+ improved Still no BM - lactulose TID Modest MV requirement Recent CT reviewed PHYSICAL EXAM GEN sedated, NAD VS as above HEENT SULMA NECK obese COR RRR CHEST coarse ABD soft, distended EXT pitting edema SKIN w/d JAKE NF ASSESSMENT 1. Acute respiratory failure requiring MV support 2. Delirium / encephalopathy 3. Hypervolemia w/ bilateral effusions 4. Suspected underlying COPD 5. Advanced chronic liver disease w/ portal HTN 6. Renal insufficiency w/ oliguria 7. Pancytopenia 8. Hypernatremia 9. Possible VAP 10. Ileus TREATMENT PLAN -MV support -use propofol as needed and try to wean opioids off -receiving lactulose, ABX, loop diuretics -follow renal function and Na+ -TF when able -stop D5W -holding all A/C for now -overall prognosis grave - daughter is NOK and is requesting aggressive RX/support Critical Care Time: 50 min The entirety of this encounter was done via Telemedicine
[2023-10-19] MEDS: Propofol 10MG/Ml 1,000 MG/100 ML Bottle 4.8 MG CONT INF (13:31)
[2023-10-19] MEDS: Potassium Chloride 10mEq/100mL 10 MEQ/100 ML IV.SOLN. 100 MEQ IV BOLUS ×4 (14:30→17:44)
[2023-10-19] MEDS: fentaNYL drip 100 ML 7.5 MCG CONT INF (16:38)
[2023-10-19 17:49] LABS: Bedside Glucose 118 mg/dL (74-106)
[2023-10-19] MEDS: Tamsulosin HCl 0.4 MG Capsule 0.8 MG PO (21:02)
[2023-10-20] VITALS (70 sets, daily range): BP systolic 74–141; BP diastolic 45–80; PULSE 55–105; RESP 14–30; TEMP 36.8–37.3; O2SAT 86–100; BMI 28.7
[2023-10-20] MEDS: Ipratropium/Albuterol Sulfate 3 ML AMPUL.NEB INHALATION ×4 (01:55→19:15)
[2023-10-20 05:23] LABS: Absolute Lymphocyte Count 0.64 X10^3/uL (0.83-4.51); Absolute Neutrophil Count 2.1 X10^3/uL (2.0-7.7); Basophil# 0.01 X10^3/uL; Basophil% 0.3 % (0-1); Eosinophil# 0.32 X10^3/uL; Eosinophils% 8.3 % (0-5); Hematocrit 27.5 % (40-54); Hemoglobin 8.9 g/dL (13.0-16.5); Lymphocyte # 0.64 X10^3/ul (0.83-4.51); Lymphocyte % 16.7 % (19-41); Mean Corp Hgb Conc 32.4 g/dL (32-36); Mean Corpuscular Hgb 33.3 pg (27.0-32.0); Mean Platelet Vol. 10.2 fl (6.2-12.0); Monocyte# 0.74 X10^3/uL; Monocyte% 19.3 % (0-10); NRBC Flagged by Analyzer 0 % (0-5); Neutrophil # 2.05 X10^3/uL (2.7-7.7); Neutrophil % 53.3 % (47-70); POSITIVE COUNT YES; Platelet Count 66 K/mm3 (150-450); RBC Distribution Width CV 16.5 % (11.6-14.6); RBC Distribution Width SD 61.5 fl (35.1-43.9); Red Blood Count 2.67 M/mm3 (4.6-6.2); White Blood Count 3.8 K/mm3 (4.4-11.0)
[2023-10-20 05:36] LABS: Anion Gap 7 (5-15); BUN 49 mg/dL (7-18); Calcium,Total 7.8 mg/dL (8.5-10.1); Chloride 108 mmol/L (98-107); Creatinine, Serum 1.69 mg/dL (0.70-1.30); EST Glomerular Filtration Rate 42 mL/min (>60); Est Glom Filt Rate - Afr Amer 50 mL/min (>60); Estimated Creatinine Clearance 34.87 ml/min; Glucose 99 mg/dL (74-106); Potassium 3.7 mmol/L (3.5-5.1); Sodium Level 140 mmol/L (136-145)
[2023-10-20] MEDS: Carbidopa/Levodopa 25/100 Tablet GT ×3 (06:02→16:58)
[2023-10-20] MEDS: Lactulose 20 GM/30 ML UDC GT ×3 (06:02→19:59)
[2023-10-20] MEDS: Levothyroxine 125 MCG Tablet GT (06:02)
--- NOTE | 2023-10-20 06:09 | PN.CC_ITS ---
Assessment & Plan Assessment/Plan (1) Acute hypercapnic respiratory failure: PLAN: Plan RECOMMENDATIONS: 1. Proceed with a trial of extubation this morning. 2. Once extubated, wean supplemental oxygen for saturations greater than 90%. 3. Low-dose Levophed, if needed, to maintain hemodynamic stability. 4. Continue PPI therapy. 5. Continue scheduled bronchodilators. 6. Continue lactulose and rifaximin. 7. Continue antimicrobials. 8. Ongoing goals of care discussion with the patient's family. IMPRESSIONS: 1. Acute combined respiratory failure The patient has a suspected history of COPD of unclear severity. He presented with acute CO2 retention, which required invasive mechanical ventilatory support. Chest imaging demonstrated the presence of bilateral pleural effusions, most likely secondary to decompensated cirrhosis and subsequent hepatic hydrothorax, along with basilar infiltrates. Sputum culture was positive for Providencia. Therefore, the patient has been maintained on antimicrobials and scheduled bronchodilators. Overall, the patient has improved from a respiratory perspective and he passed his spontaneous breathing trial this morning. Therefore, we will plan to proceed with a trial of extubation. Once extubated, wean supplemental oxygen to maintain saturations at or above 90%. 2. Acute metabolic encephalopathy Clinical concern for underlying decompensated cirrhosis. Continue current medical management with lactulose and rifaximin. 3. Decompensated liver cirrhosis The patient is currently followed by GI on an outpatient basis. Continue lactulose and rifaximin. He is now status post repeat paracentesis. Remainder of care per gastroenterology recommendations. The patient's overall prognosis is quite poor and I feel that he is hospice appropriate. 4. Hypovolemic versus septic shock I suspect that the patient's shock state is likely related to his underlying cirrhosis and third spacing that occurs. In addition, the patient has gram- negative pneumonia. The patient will be continued on low-dose Levophed, if needed, to maintain hemodynamic stability. Continue scheduled midodrine as well. 5. Anemia GI is following. Continue to trend H&H. Transfuse if hemoglobin drops below 7 g/dL. If anemia worsens, the patient will likely require upper endoscopy. 6. History of anemia/diabetes mellitus/duodenal ulcers/Parkinson's disease/hypothyroidism Complicates care, management, recovery and prognosis. Continue supportive measures as noted above. Recommend ongoing goals of care discussion with the patient's family. Previously, the patient was enrolled in hospice care services. The services were apparently revoked upon admission to the hospital. TIME: 33 minutes of critical care time, independent of procedures, was spent addressing the patient's acute combined respiratory failure, acute metabolic encephalopathy, decompensated liver cirrhosis, hypovolemic versus septic shock, anemia, review of all data and collaboration with the care team. Subjective Subjective The patient was seen and examined at the bedside this morning. Events from the last 24 hours have been reviewed. The patient continues to require low-dose Levophed to maintain hemodynamic stability. The patient is pancytopenic this morning with a platelet count of 66,000 and hemoglobin of 8.9 g/dL. Creatinine is stable at 1.69. The patient has done well this morning on his spontaneous breathing trial. He is alert and able to follow simple commands. Objective Data Objective Data The patient's most recent lab work, culture data and imaging studies have all been personally reviewed. Preliminary sputum culture was positive for 2+ Providencia. Vital Signs: Vital Signs Temp Pulse Resp BP Pulse Ox O2 Del Method O2 Flow Rate 99 F 103 H 17 106/53 L 93 Mechanical Ventilator 9 10/20/23 06:00 10/20/23 06:00 10/20/23 06:00 10/20/23 06:00 10/20/23 06:00 10/20/23 06:00 10/16/23 11:00 FiO2 35 10/20/23 06:00 Oxygen Flow Rate (L/min) 9 Oxygen Delivery Method Mechanical Ventilator Weight: 178 lb 12.718 oz Body Mass Index (BMI) 28.7 Intake & Output: Intake and Output for Last 24 Hours 10/18/23 10/19/23 10/20/23 23:59 23:59 23:59 Intake Total 1969.35 / 1998.40 3621.33 / 3735.53 260.51 / 260.51 Output Total 1635 / 1635 1225 / 1875 650 / 650 Balance 334.35 / 363.40 2396.33 / 1860.53 -389.49 / -389.49 Lab / Micro Data Attestation: I reviewed the patient's lab results. 10/20/23 05:00 10/20/23 05:00 Labs: Laboratory Results - last 24 hr 10/18/23 23:52: POC Glucose 136 H 10/19/23 05:46: POC Glucose 144 H 10/19/23 11:17: POC Glucose 155 H 10/19/23 17:31: POC Glucose 118 H 10/20/23 05:00: WBC 3.8 L, RBC 2.67 L, Hgb 8.9 L, Hct 27.5 L, MCV 103.0 H, MCH 33.3 H, MCHC 32.4, RDW Std Deviation 61.5 H, RDW Coeff of Jean Claude 16.5 H, Plt Count 66 L, MPV 10.2, Immature Gran % (Auto) 2.100 H, Neut % (Auto) 53.3, Lymph % (Auto) 16.7 L, [place] % (Auto) 19.3 H, Eos % (Auto) 8.3 H, Baso % (Auto) 0.3, Absolute Neuts (auto) 2.1, Absolute Lymphs (auto) 0.64 L, Nucleated RBC % 0, Sodium 140, Potassium 3.7, Chloride 108 H, Carbon Dioxide 25.0, Anion Gap 7, BUN 49 H, Creatinine 1.69 H, Estim Creat Clear Calc 34.87, Est GFR (MDRD) Af Amer 50 L, Est GFR (MDRD) Non-Af 42 L, BUN/Creatinine Ratio 29.0 H, Glucose 99, Calcium 7.8 L Micro: Microbiology 10/13/23 16:58 Blood Culture (Wb) - Anticubital Left Blood Culture - Final No growth in 5 days. 10/13/23 17:00 Urine, Catheterized Urine Culture - Final Mixed Gram Positive Organisms 10/13/23 17:07 Sputum, Induced/Lukens Gram Stain - Final 10/13/23 17:07 Sputum, Induced/Lukens Respiratory Culture - Final Providencia rettgeri 10/13/23 20:57 Mucosa - Nasopharyngeal Respiratory Panel (PCR) - Final 10/13/23 17:15 Mucosa - Nose SARS-CoV-2, Influenza & RSV (PCR) - Final ABG Data ABG results: ABG 10/14/23 11:52 Specimen Type ART Sample Site L Brach pH 7.65 H* Bicarbonate Actual 30.3 H Total CO2 31 Base Excess 10 H O2 Saturation 90 L O2 % 25.0 ABG pCO2 27.3 L ABG pO2 44 L Jonah Test Positive Respiration Rate 18 O2 Delivery Device Adult Vent Vent Mode AC Tidal Volume 450.0 POC PEEP 5 Crit Call To/Read Back Yes Blood Gas Notified Whom BROWN Blood Gas Notified Time 11:53:51 Physical Exam Const Constitutional Narrative: Intubated and mechanically ventilated. Jaundiced in appearance. HEENT normocephalic and head/scalp atraumatic Mouth: endotracheal tube in place Eyes PERRL Neck supple General: trachea midline Chest inspection of chest normal Resp normal respiratory effort Auscultation: rales and diminished lung sounds Cardio regular rate and regular rhythm GI soft to palpation and non-tender Extremity General Extremity: edema; Negative for clubbing Skin no rashes or lesions noted Neuro Neuro Narrative: Alert and able to follow simple commands. Psych Mood & Affect: flat affect Charges/Coding Procedures Hospitalists Procedures: 21974 Critical Care 1st Hr
--- NOTE | 2023-10-20 07:13 | PN_ITS ---
Progress Note While awaiting for respiratory therapy to arrive this morning to proceed with extubation, the patient developed frequent apneic events. Therefore, the plan to extubate the patient was terminated. The patient was placed back on assist- control mode of mechanical ventilation. Will resume current supportive care and plan for repeat awakening and breathing trial tomorrow morning.
--- NOTE | 2023-10-20 07:54 | PN.HOSP_ITS ---
Reason for Visit Reason for Visit: Diagnoses Chronic obstructive pulmonary disease, unspecified (10/13/23) Acute respiratory failure with hypercapnia (10/13/23) Respiratory failure, unspecified, unspecified whether with hypoxia or hypercapnia (10/13/23) Other ascites (10/13/23) Subjective Subjective Patient was seen and examined today, he remains sedated and on the ventilator, had a brief discussion with pulmonary medicine about his care, when trying to wean the patient, he becomes apneic and so as of this time he is not a candidate for extubation. Critical care try to call the daughter and there was no answer, I will try to get a hold of her this afternoon. Objective Data Objective Data Vital Signs: Vital Signs Temp Pulse Resp BP Pulse Ox O2 Del Method O2 Flow Rate 99 F 95 14 74/47 L 95 Mechanical Ventilator 9 10/20/23 06:00 10/20/23 07:00 10/20/23 07:00 10/20/23 07:00 10/20/23 07:00 10/20/23 07:00 10/16/23 11:00 FiO2 35 10/20/23 07:00 Oxygen Flow Rate (L/min) 9 Oxygen Delivery Method Mechanical Ventilator Weight: 81.1 kg Body Mass Index (BMI) 28.7 Intake & Output: Intake and Output for Last 24 Hours 10/18/23 10/19/23 10/20/23 23:59 23:59 23:59 Intake Total 1969.35 / 1998.40 3621.33 / 3735.53 263.50 / 263.50 Output Total 1635 / 1635 1225 / 1875 950 / 950 Balance 334.35 / 363.40 2396.33 / 1860.53 -686.50 / -686.50 Lab / Micro Data 10/20/23 05:00 10/20/23 05:00 Labs: Laboratory Results - last 24 hr 10/16/23 06:20: Crossmatch See Detail 10/18/23 23:52: POC Glucose 136 H 10/19/23 11:17: POC Glucose 155 H 10/19/23 17:31: POC Glucose 118 H 10/20/23 05:00: WBC 3.8 L, RBC 2.67 L, Hgb 8.9 L, Hct 27.5 L, MCV 103.0 H, MCH 33.3 H, MCHC 32.4, RDW Std Deviation 61.5 H, RDW Coeff of Jean Claude 16.5 H, Plt Count 66 L, MPV 10.2, Immature Gran % (Auto) 2.100 H, Neut % (Auto) 53.3, Lymph % (Auto) 16.7 L, [place] % (Auto) 19.3 H, Eos % (Auto) 8.3 H, Baso % (Auto) 0.3, Absolute Neuts (auto) 2.1, Absolute Lymphs (auto) 0.64 L, Nucleated RBC % 0, Sodium 140, Potassium 3.7, Chloride 108 H, Carbon Dioxide 25.0, Anion Gap 7, BUN 49 H, Creatinine 1.69 H, Estim Creat Clear Calc 34.87, Est GFR (MDRD) Af Amer 50 L, Est GFR (MDRD) Non-Af 42 L, BUN/Creatinine Ratio 29.0 H, Glucose 99, Calcium 7.8 L Micro: Microbiology 10/13/23 16:58 Blood Culture (Wb) - Anticubital Left Blood Culture - Final No growth in 5 days. 10/13/23 17:00 Urine, Catheterized Urine Culture - Final Mixed Gram Positive Organisms 10/13/23 17:07 Sputum, Induced/Lukens Gram Stain - Final 10/13/23 17:07 Sputum, Induced/Lukens Respiratory Culture - Final Providencia rettgeri 10/13/23 20:57 Mucosa - Nasopharyngeal Respiratory Panel (PCR) - Final 10/13/23 17:15 Mucosa - Nose SARS-CoV-2, Influenza & RSV (PCR) - Final Physical Exam Narrative Constitutional Narrative: Patient is sedated and on the ventilator, he appears older than his stated age and frail General Appearance: well developed HEENT normocephalic, head/scalp atraumatic and moist oral mucous membranes Eyes conjunctivae normal Neck no JVD and thyroid normal General: trachea midline Resp normal respiratory effort and clear to auscultation bilaterally Auscultation: Negative for rales, rhonchi or wheezes Cardio regular rate, regular rhythm, S1 normal heart sound, S2 normal heart sound, no murmurs, no rub and no gallops GI normal to inspection, nondistended, normoactive bowel sounds, soft to palpation and non-distended Extremity no clubbing, cyanosis or edema Skin Skin Narrative: Patient appears jaundiced Neuro Neuro Narrative: Patient is sedated and on the ventilator Psych Psych Narrative: Patient is sedated and on the ventilator Assessment & Plan Assessment/Plan (1) Respiratory failure requiring intubation: (2) COPD (chronic obstructive pulmonary disease): PLAN: Plan 1. Combined respiratory failure-patient remains on the ventilator at this time under sedation, critical care is participating in his care, patient will be continued on bronchodilators and empiric antibiotics, pulse ox will be monitored #2 acute metabolic encephalopathy-secondary to cirrhosis- he is receiving lactulose and Xifaxan #3 chronic liver cirrhosis with decompensation-patient underwent paracentesis this admission #4 distributive shock-patient requires pressor support at this time from relative hypovolemia versus sepsis, he is on empiric antibiotics at this time, patient is currently on midodrine #5 Parkinson's disease-complicates care, management, recovery, and prognosis, patient is on Sinemet #6 type 2 diabetes-blood sugars will be monitored, sliding scale insulin will be administered as needed #7 hypothyroidism-patient is on Synthroid #8 elevated creatinine-due to hypovolemia and cirrhosis-Labs will be monitored, creatinine is improved today #9 anemia-patient will be transfused if his hemoglobin drops below 7, etiology of the anemia is unknown at this time, hemoglobin appears to be stable at this time, hemoglobin today was 8.9 #10 pneumonia-patient's sputum grew out Providencia, he is currently on antibiotics #11 thrombocytopenia-patient's platelet count is 66,000 today, it is stable from yesterday Total clinical time spent by myself addressing the patient's medical issues, reviewing all of his data, and collaborating with patient's care team: 35 minutes Charges/Coding Visit Charges Inpatient E&M: 60476 Subs Hosp L2
[2023-10-20] MEDS: CHLORHEXIDINE GLUC 2% CLOTH 1 EACH TOWELETTE TOPICAL (08:42)
[2023-10-20] MEDS: Midodrine HCl 5 MG Tablet 10 MG NG ×3 (08:42→16:58)
[2023-10-20] MEDS: rifAXIMin 550 MG Tablet GT ×2 (08:42→19:58)
[2023-10-20] MEDS: Chlorhexidine 15 ML PO ×2 (08:42→19:59)
[2023-10-20] MEDS: Pantoprazole Sodium 40 MG in 0.9% Normal Saline (100mL MB+) 100 ML 330 MG IV (10:15)
[2023-10-20] MEDS: Cefepime HCl 1 GM in 0.9% Normal Saline (50mL MB+) 50 ML IV (10:16)
[2023-10-20] MEDS: 0.9% Saline Lock 10 ML Syringe IV (10:16)
[2023-10-20 12:16] LABS: Bedside Glucose 96 mg/dL (74-106)
[2023-10-20] MEDS: fentaNYL drip 100 ML 5 MCG CONT INF (13:35)
[2023-10-20] MEDS: Propofol 10MG/Ml 1,000 MG/100 ML Bottle 4.8 MG CONT INF (16:00)
--- NOTE | 2023-10-20 16:00 | NURSING ---
Extremely restless and pulling at tubes/wires, attempting to sit up. Multiple attempts to calm pt down but remains restless, Propofol restarted per APR order. Will continue to monitor.
[2023-10-20 17:23] LABS: CPK Total, Creatine Kinase 84 U/L (39-308); Triglycerides 109 mg/dL
[2023-10-20 18:29] LABS: Bedside Glucose 90 mg/dL (74-106)
[2023-10-20 23:30] LABS: Bedside Glucose 96 mg/dL (74-106)
[2023-10-21] VITALS (47 sets, daily range): BP systolic 74–139; BP diastolic 45–86; PULSE 48–105; RESP 6–22; TEMP 36.2–37.1; O2SAT 90–100; BMI 28.6
[2023-10-21 01:03] LABS: Bedside Glucose 88 mg/dL (74-106)
[2023-10-21 01:03] LABS: Bedside Glucose 95 mg/dL (74-106)
[2023-10-21] MEDS: Ipratropium/Albuterol Sulfate 3 ML AMPUL.NEB INHALATION ×4 (01:18→18:53)
[2023-10-21] MEDS: Propofol 10MG/Ml 1,000 MG/100 ML Bottle 7.1 MG CONT INF (02:49)
[2023-10-21] MEDS: fentaNYL drip 100 ML 7.5 MCG CONT INF (03:00)
[2023-10-21 05:20] LABS: Bedside Glucose 86 mg/dL (74-106)
--- NOTE | 2023-10-21 05:36 | NURSING ---
Message from RN at [facility] 10/20 2329: Due to his intact neuro status, we are no longer going to follow him. If he has a cardiac time of , please give us a call.
[2023-10-21] MEDS: Lactulose 20 GM/30 ML UDC GT ×3 (05:42→20:02)
[2023-10-21] MEDS: Levothyroxine 125 MCG Tablet GT (05:42)
[2023-10-21] MEDS: CHLORHEXIDINE GLUC 2% CLOTH 1 EACH TOWELETTE TOPICAL (05:42)
[2023-10-21] MEDS: Carbidopa/Levodopa 25/100 Tablet GT ×3 (05:42→17:08)
[2023-10-21] MEDS: Midodrine HCl 5 MG Tablet 10 MG NG ×3 (06:39→17:08)
--- NOTE | 2023-10-21 06:53 | NURSING ---
Patient extubated @ 0645 to 4 L nasal cannula. 99% on 4 L, turned down to 3 L.
--- NOTE | 2023-10-21 06:55 | PN.CC_ITS ---
Assessment & Plan Assessment/Plan (1) Acute hypercapnic respiratory failure: PLAN: Plan RECOMMENDATIONS: 1. Proceed with a trial of extubation this morning. 2. Once extubated, wean supplemental oxygen for saturations greater than 90%. 3. Low-dose Levophed, if needed, to maintain hemodynamic stability. 4. Continue PPI therapy. 5. Continue scheduled bronchodilators. 6. Continue lactulose and rifaximin. 7. Continue antimicrobials. 8. Ongoing goals of care discussion with the patient's family. IMPRESSIONS: 1. Acute combined respiratory failure The patient has a suspected history of COPD of unclear severity. He presented with acute CO2 retention, which required invasive mechanical ventilatory support. Chest imaging demonstrated the presence of bilateral pleural effusions, most likely secondary to decompensated cirrhosis and subsequent hepatic hydrothorax, along with basilar infiltrates. Sputum culture was positive for Providencia. Therefore, the patient has been maintained on antimicrobials and scheduled bronchodilators. Overall, the patient has improved from a respiratory perspective and he passed his spontaneous breathing trial this morning. Therefore, we will plan to proceed with a trial of extubation. Once extubated, wean supplemental oxygen to maintain saturations at or above 90%. 2. Acute metabolic encephalopathy Clinical concern for underlying decompensated cirrhosis. Continue current medical management with lactulose and rifaximin. 3. Decompensated liver cirrhosis The patient is currently followed by GI on an outpatient basis. Continue lactulose and rifaximin. He is now status post repeat paracentesis. Remainder of care per gastroenterology recommendations. The patient's overall prognosis is quite poor and I feel that he is hospice appropriate. 4. Hypovolemic versus septic shock I suspect that the patient's shock state is likely related to his underlying cirrhosis and third spacing that occurs. In addition, the patient has gram- negative pneumonia. The patient will be continued on low-dose Levophed, if needed, to maintain hemodynamic stability. Continue scheduled midodrine as well. 5. Anemia GI is following. Continue to trend H&H. Transfuse if hemoglobin drops below 7 g/dL. If anemia worsens, the patient will likely require upper endoscopy. 6. History of anemia/diabetes mellitus/duodenal ulcers/Parkinson's disease/hypothyroidism Complicates care, management, recovery and prognosis. Continue supportive measures as noted above. Recommend ongoing goals of care discussion with the patient's family. Previously, the patient was enrolled in hospice care services. The services were apparently revoked upon admission to the hospital. TIME: 34 minutes of critical care time, independent of procedures, was spent addressing the patient's acute combined respiratory failure, acute metabolic encephalopathy, decompensated liver cirrhosis, hypovolemic versus septic shock, anemia, review of all data and collaboration with the care team. Subjective Subjective The patient was seen and examined at the bedside this morning. Events from the last 24 hours have been reviewed. The patient is currently afebrile and maintaining hemodynamic stability on low-dose Levophed. The patient did well this morning on his spontaneous breathing trial, without any apneic events. He is alert and able to follow simple commands. Therefore, the patient was successfully extubated to nasal cannula supplemental oxygen. Objective Data Objective Data The patient's most recent lab work, culture data and imaging studies have all been personally reviewed. Preliminary sputum culture was positive for 2+ Providencia. Vital Signs: Vital Signs Temp Pulse Resp BP Pulse Ox O2 Del Method O2 Flow Rate 97.8 F 86 12 110/54 L 94 Mechanical Ventilator 9 10/21/23 04:00 10/21/23 06:00 10/21/23 06:00 10/21/23 06:00 10/21/23 06:00 10/21/23 06:00 10/16/23 11:00 FiO2 30 10/21/23 06:00 Oxygen Flow Rate (L/min) 9 Oxygen Delivery Method Mechanical Ventilator Weight: 178 lb 2.136 oz Body Mass Index (BMI) 28.6 Intake & Output: Intake and Output for Last 24 Hours 10/19/23 10/20/23 10/21/23 23:59 23:59 23:59 Intake Total 3621.33 / 3735.53 994.37 / 1016.97 260.01 / 260.01 Output Total 1225 / 1875 2049 / 2050 250 / 250 Balance 2396.33 / 1860.53 -1055.63 / -1033.03 11.17. Lab / Micro Data Attestation: I reviewed the patient's lab results. 10/20/23 05:00 10/20/23 05:00 Labs: Laboratory Results - last 24 hr 10/16/23 06:20: Crossmatch See Detail 10/20/23 00:30: POC Glucose 95 10/20/23 05:00: Total Creatine Kinase 84, Triglycerides 109 10/20/23 05:11: POC Glucose 88 10/20/23 11:51: POC Glucose 96 10/20/23 18:12: POC Glucose 90 10/20/23 23:12: POC Glucose 96 10/21/23 05:01: POC Glucose 86 Micro: Microbiology 10/13/23 16:58 Blood Culture (Wb) - Anticubital Left Blood Culture - Final No growth in 5 days. 10/13/23 17:00 Urine, Catheterized Urine Culture - Final Mixed Gram Positive Organisms 10/13/23 17:07 Sputum, Induced/Lukens Gram Stain - Final 10/13/23 17:07 Sputum, Induced/Lukens Respiratory Culture - Final Providencia rettgeri 10/13/23 20:57 Mucosa - Nasopharyngeal Respiratory Panel (PCR) - Final 10/13/23 17:15 Mucosa - Nose SARS-CoV-2, Influenza & RSV (PCR) - Final ABG Data ABG results: ABG 10/14/23 11:52 Specimen Type ART Sample Site L Brach pH 7.65 H* Bicarbonate Actual 30.3 H Total CO2 31 Base Excess 10 H O2 Saturation 90 L O2 % 25.0 ABG pCO2 27.3 L ABG pO2 44 L Jonah Test Positive Respiration Rate 18 O2 Delivery Device Adult Vent Vent Mode AC Tidal Volume 450.0 POC PEEP 5 Crit Call To/Read Back Yes Blood Gas Notified Whom BROWN Blood Gas Notified Time 11:53:51 Physical Exam Const Constitutional Narrative: Intubated and mechanically ventilated. Jaundiced in appearance. HEENT normocephalic and head/scalp atraumatic Mouth: endotracheal tube in place Eyes PERRL Neck supple General: trachea midline Chest inspection of chest normal Resp normal respiratory effort Auscultation: rales and diminished lung sounds Cardio regular rate and regular rhythm GI soft to palpation and non-tender Extremity General Extremity: edema; Negative for clubbing Skin no rashes or lesions noted Neuro Neuro Narrative: Alert and able to follow simple commands. Psych Mood & Affect: flat affect Charges/Coding Procedures Hospitalists Procedures: 33352 Critical Care 1st Hr
--- NOTE | 2023-10-21 08:55 | PCM.PN.HOSP ---
Reason for Visit Reason for Visit: Diagnoses Chronic obstructive pulmonary disease, unspecified (10/13/23) Acute respiratory failure with hypercapnia (10/13/23) Respiratory failure, unspecified, unspecified whether with hypoxia or hypercapnia (10/13/23) Other ascites (10/13/23) Subjective Subjective Patient was seen and examined today, he is minimally responsive the pain, he was extubated earlier this morning by pulmonary medicine, at this time his respirations are shallow and minimal, he probably will need to be reintubated this morning, I tried to get all of the patient's daughter and there was no answer at her home. I talked briefly with pulmonary medicine about his care Objective Data Objective Data Vital Signs: Vital Signs Temp Pulse Resp BP Pulse Ox O2 Del Method O2 Flow Rate 98.1 F 95 8 L 100/51 L 98 Nasal Cannula 2 10/21/23 07:00 10/21/23 08:00 10/21/23 07:03 10/21/23 07:00 10/21/23 07:03 10/21/23 07:44 10/21/23 07:44 FiO2 30 10/21/23 07:00 Oxygen Flow Rate (L/min) 2 Oxygen Delivery Method Nasal Cannula Weight: 80.8 kg Body Mass Index (BMI) 28.6 Intake & Output: Intake and Output for Last 24 Hours 10/19/23 10/20/23 10/21/23 23:59 23:59 23:59 Intake Total 3621.33 / 3735.53 994.37 / 1016.97 263.81 / 263.81 Output Total 1225 / 1875 2050 / 205 650 / 650 Balance 2396.33 / 1860.53 -1055.63 / -1033.03 -386.19 / -386.19 Lab / Micro Data 10/20/23 05:00 10/20/23 05:00 Labs: Laboratory Results - last 24 hr 10/20/23 00:30: POC Glucose 95 10/20/23 05:00: Total Creatine Kinase 84, Triglycerides 109 10/20/23 05:11: POC Glucose 88 10/20/23 11:51: POC Glucose 96 10/20/23 18:12: POC Glucose 90 10/20/23 23:12: POC Glucose 96 10/21/23 05:01: POC Glucose 86 Micro: Microbiology 10/13/23 16:58 Blood Culture (Wb) - Anticubital Left Blood Culture - Final No growth in 5 days. 10/13/23 17:00 Urine, Catheterized Urine Culture - Final Mixed Gram Positive Organisms 10/13/23 17:07 Sputum, Induced/Lukens Gram Stain - Final 10/13/23 17:07 Sputum, Induced/Lukens Respiratory Culture - Final Providencia rettgeri 10/13/23 20:57 Mucosa - Nasopharyngeal Respiratory Panel (PCR) - Final 10/13/23 17:15 Mucosa - Nose SARS-CoV-2, Influenza & RSV (PCR) - Final Physical Exam Narrative Constitutional Narrative: Patient is minimally responsive to pain, he is having shallow respirations which are slow General Appearance: well developed HEENT normocephalic, head/scalp atraumatic and moist oral mucous membranes Eyes conjunctivae normal Neck no JVD and thyroid normal General: trachea midline Resp normal respiratory effort and clear to auscultation bilaterally Auscultation: Negative for rales, rhonchi or wheezes Cardio regular rate, regular rhythm, S1 normal heart sound, S2 normal heart sound, no murmurs, no rub and no gallops GI normal to inspection, nondistended, normoactive bowel sounds, soft to palpation and non-distended Extremity no clubbing, cyanosis or edema Skin Skin Narrative: Patient appears jaundiced Neuro Neuro Narrative: Minimally responsive to pain Psych Psych Narrative: Minimally responsive to pain Assessment & Plan Assessment/Plan (1) Respiratory failure requiring intubation: (2) COPD (chronic obstructive pulmonary disease): PLAN: Plan 1. Combined respiratory failure-again patient was extubated this morning, he appears to have shallow respirations and slow respirations, he will most likely need to be reintubated today, I cannot get a hold of the patient's daughter. #2 acute metabolic encephalopathy-secondary to cirrhosis- he is receiving lactulose and Xifaxan #3 chronic liver cirrhosis with decompensation-patient underwent paracentesis this admission #4 distributive shock-patient requires pressor support at this time from relative hypovolemia versus sepsis, he is on empiric antibiotics at this time, patient is currently on midodrine #5 Parkinson's disease-complicates care, management, recovery, and prognosis, patient is on Sinemet #6 type 2 diabetes-blood sugars will be monitored, sliding scale insulin will be administered as needed #7 hypothyroidism-patient is on Synthroid #8 elevated creatinine-due to hypovolemia and cirrhosis-Labs will be monitored, creatinine is improved today #9 anemia-patient will be transfused if his hemoglobin drops below 7, etiology of the anemia is unknown at this time #10 pneumonia-patient's sputum grew out Providencia, he is currently on antibiotics #11 thrombocytopenia-secondary to cirrhosis of the liver Total clinical time spent by myself addressing the patient's medical issues, reviewing all of his data, and collaborating with patient's care team: 35 minutes Charges/Coding Visit Charges Inpatient E&M: 06004 Subs Hosp L2
[2023-10-21] MEDS: Pantoprazole Sodium 40 MG in 0.9% Normal Saline (100mL MB+) 100 ML 330 MG IV (08:59)
[2023-10-21] MEDS: 0.9% Saline Lock 10 ML Syringe IV (08:59)
[2023-10-21 09:08] LABS: Base Excess -2 mmol/L (-2 to +2); Bicarbonate 26.4 mmol/L (22-26); Blood Gas Specimen Type ART; Mode Not entered; O2 Delivery Device Not entered; PO2 104 mmHG (75-100); SITE R Brach; SO2 96 % (95-99); Total Carbon Dioxide 29 mmol/L; pCO2 73.8 mmHg (35-45); pH 7.16 (7.35-7.45)
[2023-10-21] MEDS: Etomidate 20 MG/10 ML Vial IV (09:18)
[2023-10-21] MEDS: Propofol 10MG/Ml 1,000 MG/100 ML Bottle 4.8 MG CONT INF (09:20)
[2023-10-21] MEDS: fentaNYL drip 100 ML 5 MCG CONT INF (09:30)
[2023-10-21] MEDS: Cefepime HCl 1 GM in 0.9% Normal Saline (50mL MB+) 50 ML IV ×2 (09:32→20:10)
--- NOTE | 2023-10-21 09:32 | PCM.PN.BLA ---
Progress Note Over the course of the morning, following extubation, the patient was noted to become more encephalopathic. On reevaluation, the patient was minimally responsive with frequent apneic events. It should be noted that multiple staff members have attempted to reach out to the patient's daughter to clarify goals of care. However, she has not answered any of those phone calls. Given that the patient currently remains a full CODE STATUS, the decision was made to proceed with reintubation. At this time, given that the patient failed his attempt at extubation, the patient's daughter now has to make a decision between initiation of hospice care or proceeding with tracheostomy and PEG tube placement. This will ultimately be discussed with her when she returns phone calls or presents to the hospital.
--- NOTE | 2023-10-21 09:33 | PCM.OP.PRO ---
Procedure Report Date of Procedure: 10/21/23 Intubation Indication: Respiratory failure Consent was obtained from: Performed emergently The patient was placed in the appropriate sniffing position. Preoxygenated sedation via [id number] was provided for a minimum of 3 minutes. The patient had continuous cardiac as well as pulse oximetry monitoring during the procedure. Procedure sedation was provided by the administration of 20 mg of etomidate. Direct laryngoscopy was then performed using a number 4 MAC blade, which revealed a grade 1 view. A 7.5 mm endotracheal tube was visualized advancing between the cords to the level of 24 cm at the lip. The stylette was then removed and discarded. Tube placement was confirmed by fogging in the tube along with equal and bilateral breath sounds. Colorimetric change was visualized on the CO2 meter. The cuff was then inflated and the tube secured using a commercially available device. A good pulse oximetry waveform was seen on the monitor throughout the procedure. A portable chest x-ray has been ordered to confirm appropriate placement. The patient tolerated the procedure well. Procedures Hospitalists Procedures: 20479 Insert Emergency Airway
--- NOTE | 2023-10-21 09:50 | RAD_ITS ---
HISTORY: ETT and OGT placement verification. TECHNIQUE: XR Chest 1 View. COMPARISON: 10/13/2023. FINDINGS: LINES/TUBES: Right internal jugular central venous catheter tip again at the level of the mid superior vena cava. Endotracheal tube tip 3 to 4 cm above the len. Orogastric tube coiled in the left upper quadrant with tip at the level of the stomach. CARDIOMEDIASTINAL BORDERS: Stable. LUNGS: Right perihilar opacity again seen. Bibasilar opacities, increased on the left. PLEURA: Mild-moderate bilateral pleural effusions, increased on the left. OTHER: Chronic bilateral humeral and left rib fractures. Gaseous distention or dilatation of bowel in the upper abdomen. RAD/Chest 1 View (Portable) IMPRESSION: Bilateral pleural effusions with bilateral atelectasis or pneumonia, increased on the left. Gaseous distention or dilatation balmy upper abdomen, raising the possibility of ileus or obstruction. Satisfactory appearance of lines/tubes. Electronically Signed: Zakiya Molina MD at 10:10 EDT ,
[2023-10-21] MEDS: Chlorhexidine 15 ML PO ×2 (09:51→20:02)
[2023-10-21 10:21] LABS: Base Excess 0 mmol/L (-2 to +2); Bicarbonate 24.6 mmol/L (22-26); Blood Gas Specimen Type ART; Mode AC; O2 Delivery Device Adult Vent; PEEP 5; PO2 56 mmHG (75-100); RR 14; SITE R Brach; SO2 89 % (95-99); Total Carbon Dioxide 26 mmol/L; pCO2 38.9 mmHg (35-45); pH 7.41 (7.35-7.45)
[2023-10-21 10:49] LABS: Absolute Lymphocyte Count 0.65 X10^3/uL (0.83-4.51); Basophil# 0.04 X10^3/uL; Basophil% 0.8 % (0-1); Eosinophil# 0.31 X10^3/uL; Eosinophils% 6.4 % (0-5); Hemoglobin 9.4 g/dL (13.0-16.5); Lymphocyte # 0.65 X10^3/ul (0.83-4.51); Lymphocyte % 13.5 % (19-41); Mean Corp Hgb Conc 32.4 g/dL (32-36); Mean Corpuscular Hgb 32.9 pg (27.0-32.0); Mean Corpuscular Volume 101.4 fL (80-94); Mean Platelet Vol. 9.9 fl (6.2-12.0); Monocyte# 0.69 X10^3/uL; Monocyte% 14.3 % (0-10); NRBC Flagged by Analyzer 0 % (0-5); Neutrophil # 3.01 X10^3/uL (2.7-7.7); Neutrophil % 62.7 % (47-70); Platelet Count 103 K/mm3 (150-450); RBC Distribution Width CV 16.2 % (11.6-14.6); RBC Distribution Width SD 60.2 fl (35.1-43.9); Red Blood Count 2.86 M/mm3 (4.6-6.2); White Blood Count 4.8 K/mm3 (4.4-11.0)
[2023-10-21 11:03] LABS: ALB/GLOB Ratio 0.7 RATIO (0.9-2.4); AST(SGOT) 24 U/L (15-37); Alanine Aminotransfer ALT/SGPT 9 U/L (16-61); Albumin, Serum 2.2 g/dL (3.2-5.0); Alkaline Phosphatase 82 U/L (45-117); Anion Gap 5 (5-15); BUN 47 mg/dL (7-18); Calcium,Total 8.2 mg/dL (8.5-10.1); Chloride 108 mmol/L (98-107); Creatinine, Serum 1.68 mg/dL (0.70-1.30); EST Glomerular Filtration Rate 42 mL/min (>60); Est Glom Filt Rate - Afr Amer 51 mL/min (>60); Estimated Creatinine Clearance 35.02 ml/min; Globulin 3.1 g/dL (2.2-4.2); Glucose 117 mg/dL (74-106); Potassium 3.7 mmol/L (3.5-5.1); Protein, Total 5.3 g/dL (6.4-8.2); Sodium Level 139 mmol/L (136-145)
[2023-10-21] MEDS: rifAXIMin 550 MG Tablet GT ×2 (11:07→20:02)
[2023-10-21] MEDS: Norepinephrine 8 MG in 0.9% Normal Saline (250mL Bag) 242 ML 7.5 MG CONT INF (11:14)
[2023-10-21 11:26] LABS: Bedside Glucose 105 mg/dL (74-106)
[2023-10-21 17:31] LABS: Bedside Glucose 87 mg/dL (74-106)
[2023-10-21] MEDS: Propofol 10MG/Ml 1,000 MG/100 ML Bottle 9.7 MG CONT INF ×2 (18:36→23:54)
--- NOTE | 2023-10-21 20:30 | NURSING ---
Daughter returned phone calls from Dr. Srinivasan and chinmay JAMES. She said she can come in for a meeting with Dr. Srinivasan around 0630 or 0700 tomorrow morning after she gets off work.
[2023-10-21 23:53] LABS: Bedside Glucose 85 mg/dL (74-106)
[2023-10-22] VITALS (42 sets, daily range): BP systolic 93–151; BP diastolic 41–92; PULSE 47–85; RESP 14–19; TEMP 35.8–36.2; O2SAT 93–99; BMI 28.0
[2023-10-22] MEDS: Ipratropium/Albuterol Sulfate 3 ML AMPUL.NEB INHALATION ×4 (01:20→19:30)
[2023-10-22] MEDS: fentaNYL drip 100 ML 7.5 MCG CONT INF ×2 (02:15→15:42)
[2023-10-22] MEDS: CHLORHEXIDINE GLUC 2% CLOTH 1 EACH TOWELETTE TOPICAL (02:16)
[2023-10-22 03:10] LABS: Absolute Lymphocyte Count 1.17 X10^3/uL (0.83-4.51); Absolute Neutrophil Count 3.6 X10^3/uL (2.0-7.7); Basophil# 0.04 X10^3/uL; Basophil% 0.7 % (0-1); Eosinophil# 0.35 X10^3/uL; Eosinophils% 5.9 % (0-5); Hematocrit 29.3 % (40-54); Hemoglobin 9.8 g/dL (13.0-16.5); Lymphocyte # 1.17 X10^3/ul (0.83-4.51); Lymphocyte % 19.7 % (19-41); Mean Corp Hgb Conc 33.4 g/dL (32-36); Mean Corpuscular Volume 98.7 fL (80-94); Mean Platelet Vol. 9.4 fl (6.2-12.0); Monocyte# 0.68 X10^3/uL; Monocyte% 11.5 % (0-10); NRBC Flagged by Analyzer 0 % (0-5); Neutrophil # 3.55 X10^3/uL (2.7-7.7); Neutrophil % 59.8 % (47-70); Platelet Count 109 K/mm3 (150-450); RBC Distribution Width CV 16.2 % (11.6-14.6); RBC Distribution Width SD 58.1 fl (35.1-43.9); Red Blood Count 2.97 M/mm3 (4.6-6.2); White Blood Count 5.9 K/mm3 (4.4-11.0)
[2023-10-22 03:17] LABS: Anion Gap 8 (5-15); BUN 44 mg/dL (7-18); BUN/Creat Ratio 27.2 RATIO (10-20); Calcium,Total 8.1 mg/dL (8.5-10.1); Chloride 108 mmol/L (98-107); Creatinine, Serum 1.62 mg/dL (0.70-1.30); EST Glomerular Filtration Rate 44 mL/min (>60); Est Glom Filt Rate - Afr Amer 53 mL/min (>60); Estimated Creatinine Clearance 36.32 ml/min; Glucose 104 mg/dL (74-106); Potassium 3.3 mmol/L (3.5-5.1); Sodium Level 139 mmol/L (136-145)
[2023-10-22] MEDS: Lactulose 20 GM/30 ML UDC GT ×3 (05:17→20:52)
[2023-10-22] MEDS: 0.9% Saline Lock 10 ML Syringe IV (05:17)
[2023-10-22] MEDS: Carbidopa/Levodopa 25/100 Tablet GT ×3 (05:17→16:59)
[2023-10-22] MEDS: Levothyroxine 125 MCG Tablet GT (05:17)
[2023-10-22] MEDS: TITRATION PARAMETER CHANGE 1 EACH IV (05:18)
[2023-10-22 05:41] LABS: Bedside Glucose 87 mg/dL (74-106)
--- NOTE | 2023-10-22 06:40 | PN.CC_ITS ---
Assessment & Plan Assessment/Plan (1) Acute hypercapnic respiratory failure: PLAN: Plan RECOMMENDATIONS: 1. Continue assist-control mode of mechanical ventilation. 2. Low-dose Levophed to maintain hemodynamic stability. 3. Antimicrobials as ordered. 4. Continue current sedation regimen. 5. Hold on tube feeding given ileus noted on imaging. 6. CODE STATUS updated to DNR CCA with plans to transition to comfort care measures tomorrow. IMPRESSIONS: 1. Acute combined respiratory failure The patient has a suspected history of COPD of unclear severity. He presented with acute CO2 retention, which required invasive mechanical ventilatory support. Chest imaging demonstrated the presence of bilateral pleural effusions, most likely secondary to decompensated cirrhosis and subsequent hepatic hydrothorax, along with basilar infiltrates. Sputum culture was positive for Providencia. Therefore, the patient has been maintained on antimicrobials and scheduled bronchodilators. While the patient initially improved from a respiratory perspective and was extubated on October 20, he ultimately decompensated and required reintubation. Following this, a goals of care discussion was undertaken with the patient's daughter, who elected to proceed with the initiation of comfort care measures, once all family members have arrived. For now, the patient will be continued on assist-control mode mechanical ventilation with current supportive measures in place, pending terminal extubation tomorrow. 2. Acute metabolic encephalopathy Clinical concern for underlying decompensated cirrhosis. Continue current medical management with lactulose and rifaximin. 3. Decompensated liver cirrhosis The patient is currently followed by GI on an outpatient basis. Continue lactulose and rifaximin. He is now status post repeat paracentesis. Remainder of care per gastroenterology recommendations. The patient's overall prognosis is quite poor and I feel that he is hospice appropriate. 4. Hypovolemic versus septic shock I suspect that the patient's shock state is likely related to his underlying cirrhosis and third spacing that occurs. In addition, the patient has gram- negative pneumonia. The patient will be continued on low-dose Levophed, if needed, to maintain hemodynamic stability. Continue scheduled midodrine as well. 5. Anemia GI is following. Continue to trend H&H. Transfuse if hemoglobin drops below 7 g/dL. If anemia worsens, the patient will likely require upper endoscopy. 6. History of anemia/diabetes mellitus/duodenal ulcers/Parkinson's disease/hypothyroidism Complicates care, management, recovery and prognosis. Continue supportive measures as noted above. Hold on tube feeding for now given underlying ileus. CODE STATUS: Following my discussion with the patient's daughter, the patient will be transition to DNR CCA today, with plans to initiate comfort care measures with terminal extubation sometime tomorrow. I discussed CODE status at length including difference between FULL code, DNR-CCA and DNR-CC status. Following discussions about the differences in these status, patient requested DNR CCA CODE STATUS. Advanced Care Planning Face to Face Time: 18 minutes, independent of critical care time. TIME: 32 minutes of critical care time, independent of procedures, was spent addressing the patient's acute combined respiratory failure, acute metabolic encephalopathy, decompensated liver cirrhosis, hypovolemic versus septic shock, anemia, review of all data and collaboration with the care team. Subjective Subjective The patient was seen and examined at the bedside this morning. Events from the last 24 hours have been reviewed. The patient is currently afebrile and maintaining appropriate oxygen saturations on assist-control mode mechanical ventilation with an FiO2 requirement of 25% and PEEP of 5. The patient remains on low-dose Levophed to maintain hemodynamic stability. He is sedated on propofol and fentanyl. Hemoglobin is stable at 9.8 g/dL. Platelet count was noted to be 109,000. Creatinine is stable at 1.62. The patient failed his attempted extubation yesterday morning and had to be reintubated. Although we had a great deal of difficulty in reaching out to his daughter to discuss goals of care, she ultimately presented to the bedside this morning. I was able to meet with her to discuss prognosis and overall goals of care. I had an extensive conversation regarding options moving forward that included tracheostomy and PEG tube placement versus initiation of comfort care pressors. At this time, bearing in mind the wishes of the patient, his daughter is wishing to pursue the initiation of comfort care measures. However, there are additional family who are arriving from out of town later today. Therefore, we have discussed a plan that includes transitioning the patient to DNR CCA today, with plans for compassionate extubation and initiation of comfort care measures at some point tomorrow. Objective Data Objective Data The patient's most recent lab work, culture data and imaging studies have all been personally reviewed. Preliminary sputum culture was positive for 2+ Providencia. Vital Signs: Vital Signs Temp Pulse Resp BP Pulse Ox O2 Del Method O2 Flow Rate 96.6 F L 65 14 122/52 H 98 Mechanical Ventilator 2 10/22/23 05:00 10/22/23 06:33 10/22/23 06:33 10/22/23 05:00 10/22/23 06:33 10/22/23 06:33 10/21/23 09:15 FiO2 25 10/22/23 06:33 Oxygen Flow Rate (L/min) 2 Oxygen Delivery Method Mechanical Ventilator Weight: 174 lb 9.698 oz Body Mass Index (BMI) 28.0 Intake & Output: Intake and Output for Last 24 Hours 10/20/23 10/21/23 10/22/23 23:59 23:59 23:59 Intake Total 994.37 / 1016.97 1229.46 / 1245.43 259.48 / 259.48 Output Total 2049 / 2049 1500 / 1675 175 / 175 Balance -1055.63 / -1033.03 -270.54 / -429.57 84.48 / 84.48 Lab / Micro Data Attestation: I reviewed the patient's lab results. 10/22/23 02:55 10/22/23 02:55 Labs: Laboratory Results - last 24 hr 10/21/23 10:40: WBC 4.8, RBC 2.86 L, Hgb 9.4 L, Hct 29.0 L, MCV 101.4 H, MCH 32.9 H, MCHC 32.4, RDW Std Deviation 60.2 H, RDW Coeff of Jean Claude 16.2 H, Plt Count 103 L, MPV 9.9, Immature Gran % (Auto) 2.300 H, Neut % (Auto) 62.7, Lymph % (Auto) 13.5 L, Mcintosh % (Auto) 14.3 H, Eos % (Auto) 6.4 H, Baso % (Auto) 0.8, Absolute Neuts (auto) 3.0, Absolute Lymphs (auto) 0.65 L, Nucleated RBC % 0, Sodium 139, Potassium 3.7, Chloride 108 H, Carbon Dioxide 26.0, Anion Gap 5, BUN 47 H, Creatinine 1.68 H, Estim Creat Clear Calc 35.02, Est GFR (MDRD) Af Amer 51 L, Est GFR (MDRD) Non-Af 42 L, BUN/Creatinine Ratio 28.0 H, Glucose 117 H, C alcium 8.2 L, Total Bilirubin 2.50 H, AST 24, ALT 9 L, Alkaline Phosphatase 82, Ammonia 33.0 H, Total Protein 5.3 L, Albumin 2.2 L, Globulin 3.1, A lbumin/Globulin Ratio 0.7 L 10/21/23 11:03: POC Glucose 105 10/21/23 17:12: POC Glucose 87 10/21/23 23:34: POC Glucose 85 10/22/23 02:55: WBC 5.9, RBC 2.97 L, Hgb 9.8 L, Hct 29.3 L, MCV 98.7 H, MCH 33.0 H, MCHC 33.4, RDW Std Deviation 58.1 H, RDW Coeff of Jean Claude 16.2 H, Plt Count 109 L , MPV 9.4, Immature Gran % (Auto) 2.400 H, Neut % (Auto) 59.8, Lymph % (Auto) 19.7, Mcintosh % (Auto) 11.5 H, Eos % (Auto) 5.9 H, Baso % (Auto) 0.7, Absolute Neuts (auto) 3.6, Absolute Lymphs (auto) 1.17, Nucleated RBC % 0, Sodium 139, P otassium 3.3 L, Chloride 108 H, Carbon Dioxide 23.0, Anion Gap 8, BUN 44 H, C reatinine 1.62 H, Estim Creat Clear Calc 36.32, Est GFR (MDRD) Af Amer 53 L, Est GFR (MDRD) Non-Af 44 L, BUN/Creatinine Ratio 27.2 H, Glucose 104, Calcium 8.1 L 10/22/23 05:22: POC Glucose 87 Micro: Microbiology 10/13/23 16:58 Blood Culture (Wb) - Anticubital Left Blood Culture - Final No growth in 5 days. 10/13/23 17:00 Urine, Catheterized Urine Culture - Final Mixed Gram Positive Organisms 10/13/23 17:07 Sputum, Induced/Lukens Gram Stain - Final 10/13/23 17:07 Sputum, Induced/Lukens Respiratory Culture - Final Providencia rettgeri 10/13/23 20:57 Mucosa - Nasopharyngeal Respiratory Panel (PCR) - Final 10/13/23 17:15 Mucosa - Nose SARS-CoV-2, Influenza & RSV (PCR) - Final ABG Data ABG results: ABG 10/21/23 10/21/23 09:05 10:16 Specimen Type ART ART Sample Site R Brach R Brach pH 7.16 L* 7.41 Bicarbonate Actual 26.4 H 24.6 Total CO2 29 26 Base Excess -2 0 O2 Saturation 96 89 L O2 % 2.0 30.0 ABG pCO2 73.8 H* 38.9 ABG pO2 104 H 56 L Respiration Rate 14 O2 Delivery Device Not entered Adult Vent Vent Mode Not entered AC Tidal Volume 450.0 POC PEEP 5 Crit Call To/Read Back Yes Blood Gas Notified Whom MANAV Blood Gas Notified Time 09:06:25 Radiography Diagnostic Testing: Radiology Impression Chest X-Ray 10/21/23 09:50 IMPRESSION: Bilateral pleural effusions with bilateral atelectasis or pneumonia, increased on the left. Gaseous distention or dilatation balmy upper abdomen, raising the possibility of ileus or obstruction. Satisfactory appearance of lines/tubes. Electronically Signed: Zakiya Molina MD at 10:10 EDT , Physical Exam Const Constitutional Narrative: Remains intubated, sedated and mechanically ventilated. No ventilator dyssynchrony noted. HEENT normocephalic and head/scalp atraumatic Mouth: endotracheal tube in place and OG tube in place Eyes PERRL and EOMs intact bilaterally Neck supple General: trachea midline Chest inspection of chest normal Resp normal respiratory effort Auscultation: rales and diminished lung sounds Cardio regular rate and regular rhythm GI soft to palpation and non-tender Extremity General Extremity: edema; Negative for clubbing Skin no rashes or lesions noted Neuro Sensorium / Orientation: sedated on vent Charges/Coding Procedures Hospitalists Procedures: 97776 Critical Care 1st Hr Multi Select Codes Hospitalists' Procedures Procedures: 02836 Advncd Care Plan 30 Min
--- NOTE | 2023-10-22 07:19 | PCM.PN.HOSP ---
Reason for Visit Reason for Visit: Diagnoses Chronic obstructive pulmonary disease, unspecified (10/13/23) Acute respiratory failure with hypercapnia (10/13/23) Respiratory failure, unspecified, unspecified whether with hypoxia or hypercapnia (10/13/23) Other ascites (10/13/23) Subjective Subjective Patient is an 78-year-old gentleman who was admitted with altered mental status and assessment of acute hypoxic respiratory failure made patient intubated and admitted to the intensive care unit. Patient was extubated the day prior had to be reintubated given worsening respiratory status Objective Data Objective Data Vital Signs: Vital Signs Temp Pulse Resp BP Pulse Ox O2 Del Method O2 Flow Rate 96.6 F L 65 14 108/49 L 98 Mechanical Ventilator 2 10/22/23 06:00 10/22/23 06:33 10/22/23 06:33 10/22/23 06:00 10/22/23 06:33 10/22/23 06:33 10/21/23 09:15 FiO2 25 10/22/23 06:33 Oxygen Flow Rate (L/min) 2 Oxygen Delivery Method Mechanical Ventilator Weight: 79.2 kg Body Mass Index (BMI) 28.0 Intake & Output: Intake and Output for Last 24 Hours 10/20/23 10/21/23 10/22/23 23:59 23:59 23:59 Intake Total 994.37 / 1016.97 1229.46 / 1245.43 283.98 / 283.98 Output Total 2049 1500 / 1675 775 / 775 Balance -1055.63 / -1033.03 -270.54 / -429.57 -491.02 / -491.02 Lab / Micro Data 10/22/23 02:55 10/22/23 02:55 Labs: Laboratory Results - last 24 hr 10/21/23 10:40: WBC 4.8, RBC 2.86 L, Hgb 9.4 L, Hct 29.0 L, MCV 101.4 H, MCH 32.9 H, MCHC 32.4, RDW Std Deviation 60.2 H, RDW Coeff of Jean Claude 16.2 H, Plt Count 103 L, MPV 9.9, Immature Gran % (Auto) 2.300 H, Neut % (Auto) 62.7, Lymph % (Auto) 13.5 L, Coles % (Auto) 14.3 H, Eos % (Auto) 6.4 H, Baso % (Auto) 0.8, Absolute Neuts (auto) 3.0, Absolute Lymphs (auto) 0.65 L, Nucleated RBC % 0, Sodium 139, Potassium 3.7, Chloride 108 H, Carbon Dioxide 26.0, Anion Gap 5, BUN 47 H, Creatinine 1.68 H, Estim Creat Clear Calc 35.02, Est GFR (MDRD) Af Amer 51 L, Est GFR (MDRD) Non-Af 42 L, BUN/Creatinine Ratio 28.0 H, Glucose 117 H, Calcium 8.2 L, Total Bilirubin 2.50 H, AST 24, ALT 9 L, Alkaline Phosphatase 82, Ammonia 33.0 H, Total Protein 5.3 L, Albumin 2.2 L, Globulin 3.1, Albumin/Globulin Ratio 0.7 L 10/21/23 11:03: POC Glucose 105 10/21/23 17:12: POC Glucose 87 10/21/23 23:34: POC Glucose 85 10/22/23 02:55: WBC 5.9, RBC 2.97 L, Hgb 9.8 L, Hct 29.3 L, MCV 98.7 H, MCH 33.0 H, MCHC 33.4, RDW Std Deviation 58.1 H, RDW Coeff of Jean Claude 16.2 H, Plt Count 109 L, MPV 9.4, Immature Gran % (Auto) 2.400 H, Neut % (Auto) 59.8, Lymph % (Auto) 19.7, Coles % (Auto) 11.5 H, Eos % (Auto) 5.9 H, Baso % (Auto) 0.7, Absolute Neuts (auto) 3.6, Absolute Lymphs (auto) 1.17, Nucleated RBC % 0, Sodium 139, Potassium 3.3 L, Chloride 108 H, Carbon Dioxide 23.0, Anion Gap 8, BUN 44 H, Creatinine 1.62 H, Estim Creat Clear Calc 36.32, Est GFR (MDRD) Af Amer 53 L, Est GFR (MDRD) Non-Af 44 L, BUN/Creatinine Ratio 27.2 H, Glucose 104, Calcium 8.1 L 10/22/23 05:22: POC Glucose 87 Micro: Microbiology 10/13/23 16:58 Blood Culture (Wb) - Anticubital Left Blood Culture - Final No growth in 5 days. 10/13/23 17:00 Urine, Catheterized Urine Culture - Final Mixed Gram Positive Organisms 10/13/23 17:07 Sputum, Induced/Lukens Gram Stain - Final 10/13/23 17:07 Sputum, Induced/Lukens Respiratory Culture - Final Providencia rettgeri 10/13/23 20:57 Mucosa - Nasopharyngeal Respiratory Panel (PCR) - Final 10/13/23 17:15 Mucosa - Nose SARS-CoV-2, Influenza & RSV (PCR) - Final ABG Data ABG results: ABG 10/21/23 10/21/23 09:05 10:16 Specimen Type ART ART Sample Site R Brach R Brach pH 7.16 L* 7.41 Bicarbonate Actual 26.4 H 24.6 Total CO2 29 26 Base Excess -2 0 O2 Saturation 96 89 L O2 % 2.0 30.0 ABG pCO2 73.8 H* 38.9 ABG pO2 104 H 56 L Respiration Rate 14 O2 Delivery Device Not entered Adult Vent Vent Mode Not entered AC Tidal Volume 450.0 POC PEEP 5 Crit Call To/Read Back Yes Blood Gas Notified Whom [facility] Blood Gas Notified Time 09:06:25 Radiography Diagnostic Testing: Radiology Impression Chest X-Ray 10/21/23 09:50 IMPRESSION: Bilateral pleural effusions with bilateral atelectasis or pneumonia, increased on the left. Gaseous distention or dilatation balmy upper abdomen, raising the possibility of ileus or obstruction. Satisfactory appearance of lines/tubes. Electronically Signed: Zakiya Molina MD at 10:10 EDT , Physical Exam Narrative GENERAL: Sedated on the vent HEENT: Atraumatic; normocephalic EYES; Anicteric, Normal Conjunctiva NECK; supple, normal thyroid, RESPIRATORY: Diminished to auscultation CARDIOVASCULAR: Regular S1 S2, GI: soft, normoactive bowel sounds, : No Renal angle tenderness; EXTREMITIES: edema, no clubbing, MUSCULOSKELETAL: no muscle wasting NEURO: Sedated on the vent SKIN: No Rash Assessment & Plan Assessment/Plan (1) Respiratory failure requiring intubation: (2) COPD (chronic obstructive pulmonary disease): PLAN: Plan Patient is an 78-year-old gentleman who was admitted with altered mental status and assessment of acute hypoxic respiratory failure made patient intubated and admitted to the intensive care unit 1. Acute hypoxic and hypercapnic respiratory failure ?Imaging studies demonstrated Large bilateral pleural effusions with compressive atelectasis in the lung bases. There are patchy airspace opacities in the right upper lobe, right middle lobe and left lower lobe suggesting bilateral pneumonia.Patient was intubated on admission extubated and had to be reintubated on 10/21/2023. Remains on broad-spectrum antibiotic therapy. Pulmonary medicine on board 2. Pneumonia with subsided multidrug resistance organism ? Patient presented with respiratory failure resulting in patient being intubated currently managed with cefepime 3. Acute metabolic encephalopathy ? Secondary to pneumonia, respiratory failure and hepatic encephalopathy (present on admission) 4. . Alcoholic cirrhosis of the liver ? Patient is on rifaximin, nadolol and lactulose 5. Recurrent ascites ? Secondary to alcoholic liver cirrhosis. Patient has undergone ultrasound-guided paracentesis during his current admission 6. Thrombocytopenia ? Secondary to chronic liver disease monitoring with daily CBC with differential 7. Anemia - Secondary to chronic disorder monitoring H&H and transfuse if patient becomes symptomatic or hemoglobin falls below 7 8. Diabetes mellitus type 2 ? Place on Accu-Cheks before meals and at bedtime with sliding scale coverage 9. Parkinson's disease ? Patient was on Sinemet plan is to resume following extubation 10. Hypothyroidism ? Patient is on levothyroxine home dose continued 11. Acute kidney injury ? Patient creatinine from 06/17/2023 was 1.08, creatinine was 2.14 did improve rehydration 12. Septic shock ? Present on admission treated per protocol 13. BPH ? On tamsulosin as outpatient Time spent in the patient's overall evaluation,decision-making process, review of diagnostic data, adjustment of management, discussion with other providers, nursing nursing and ancillary staff involved in patient's care documentation, 51 Minutes Charges/Coding Visit Charges Inpatient E&M: 61220 [facility] Hosp L3
[2023-10-22] MEDS: Propofol 10MG/Ml 1,000 MG/100 ML Bottle 9.5 MG CONT INF ×2 (07:49→17:00)
[2023-10-22] MEDS: Midodrine HCl 5 MG Tablet 10 MG NG ×3 (07:49→16:59)
[2023-10-22] MEDS: Chlorhexidine 15 ML PO ×2 (07:50→20:51)
[2023-10-22] MEDS: rifAXIMin 550 MG Tablet GT ×2 (07:50→20:52)
[2023-10-22] MEDS: Pantoprazole Sodium 40 MG in 0.9% Normal Saline (100mL MB+) 100 ML 330 MG IV (07:57)
[2023-10-22] MEDS: Cefepime HCl 1 GM in 0.9% Normal Saline (50mL MB+) 50 ML IV ×2 (09:31→20:50)
[2023-10-22 09:44] LABS: Pathologist Review Reviewed
[2023-10-22 12:25] LABS: Bedside Glucose 97 mg/dL (74-106)
[2023-10-22] MEDS: Norepinephrine 8 MG in 0.9% Normal Saline (250mL Bag) 242 ML 7.5 MG CONT INF (17:00)
[2023-10-22 18:06] LABS: Bedside Glucose 94 mg/dL (74-106)
[2023-10-22 18:40] LABS: Bedside Glucose 84 mg/dL (74-106)
[2023-10-22] MEDS: Tamsulosin HCl 0.4 MG Capsule 0.8 MG PO (20:52)
[2023-10-22] MEDS: 0.9% Normal Saline (250mL Bag) 250 ML 15 ML IV (20:56)
[2023-10-23] VITALS (26 sets, daily range): BP systolic 100–140; BP diastolic 38–82; PULSE 69–109; RESP 8–19; TEMP 36.2–37.2; O2SAT 77–98; BMI 27.9
[2023-10-23 00:04] LABS: Bedside Glucose 96 mg/dL (74-106)
[2023-10-23] MEDS: Ipratropium/Albuterol Sulfate 3 ML AMPUL.NEB INHALATION ×2 (01:25→07:19)
[2023-10-23] MEDS: Propofol 10MG/Ml 1,000 MG/100 ML Bottle 2.4 MG CONT INF (03:16)
[2023-10-23] MEDS: 0.9% Saline Lock 10 ML Syringe IV ×2 (04:56→21:18)
[2023-10-23] MEDS: fentaNYL drip 100 ML 7.5 MCG CONT INF (04:56)
[2023-10-23] MEDS: Carbidopa/Levodopa 25/100 Tablet GT (04:58)
[2023-10-23] MEDS: Levothyroxine 125 MCG Tablet GT (04:58)
[2023-10-23] MEDS: Lactulose 20 GM/30 ML UDC GT (04:58)
[2023-10-23 05:10] LABS: Absolute Lymphocyte Count 0.62 X10^3/uL (0.83-4.51); Absolute Neutrophil Count 4.5 X10^3/uL (2.0-7.7); Basophil# 0.02 X10^3/uL; Basophil% 0.3 % (0-1); Eosinophil# 0.24 X10^3/uL; Hematocrit 25.7 % (40-54); Hemoglobin 8.4 g/dL (13.0-16.5); Lymphocyte # 0.62 X10^3/ul (0.83-4.51); Lymphocyte % 10.4 % (19-41); Mean Corp Hgb Conc 32.7 g/dL (32-36); Mean Corpuscular Hgb 32.7 pg (27.0-32.0); Monocyte# 0.52 X10^3/uL; Monocyte% 8.7 % (0-10); NRBC Flagged by Analyzer 0 % (0-5); Neutrophil # 4.51 X10^3/uL (2.7-7.7); Neutrophil % 75.6 % (47-70); POSITIVE COUNT YES; Platelet Count 86 K/mm3 (150-450); RBC Distribution Width CV 16.1 % (11.6-14.6); RBC Distribution Width SD 58.8 fl (35.1-43.9); Red Blood Count 2.57 M/mm3 (4.6-6.2)
[2023-10-23 05:29] LABS: Anion Gap 8 (5-15); BUN 41 mg/dL (7-18); BUN/Creat Ratio 26.6 RATIO (10-20); Calcium,Total 7.9 mg/dL (8.5-10.1); Chloride 107 mmol/L (98-107); Creatinine, Serum 1.54 mg/dL (0.70-1.30); EST Glomerular Filtration Rate 46 mL/min (>60); Est Glom Filt Rate - Afr Amer 56 mL/min (>60); Estimated Creatinine Clearance 37.77 ml/min; Glucose 97 mg/dL (74-106); Potassium 3.5 mmol/L (3.5-5.1); Sodium Level 139 mmol/L (136-145)
[2023-10-23 05:32] LABS: Bedside Glucose 89 mg/dL (74-106)
--- NOTE | 2023-10-23 06:13 | PCM.PN.INT ---
Assessment & Plan Assessment/Plan (1) Acute hypercapnic respiratory failure: PLAN: Plan RECOMMENDATIONS: 1. Continue assist-control mode of mechanical ventilation. Proceed with terminal extubation once patient's family arrives. 2. Low-dose Levophed to maintain hemodynamic stability. 3. Antimicrobials as ordered. 4. Continue current sedation regimen. 5. Continue appropriate ICU prophylaxis. IMPRESSIONS: 1. Acute combined respiratory failure The patient has a suspected history of COPD of unclear severity. He presented with acute CO2 retention, which required invasive mechanical ventilatory support. Chest imaging demonstrated the presence of bilateral pleural effusions, most likely secondary to decompensated cirrhosis and subsequent hepatic hydrothorax, along with basilar infiltrates. Sputum culture was positive for Providencia. Therefore, the patient has been maintained on antimicrobials and scheduled bronchodilators. While the patient initially improved from a respiratory perspective and was extubated on October 20, he ultimately decompensated and required reintubation. Following this, a goals of care discussion was undertaken with the patient's daughter, who elected to proceed with the initiation of comfort care measures, once all family members have arrived. For now, the patient will be continued on assist-control mode mechanical ventilation with current supportive measures in place, pending terminal extubation later this morning. 2. Acute metabolic encephalopathy Clinical concern for underlying decompensated cirrhosis. Continue current medical management with lactulose and rifaximin. 3. Decompensated liver cirrhosis The patient is currently followed by GI on an outpatient basis. Continue lactulose and rifaximin. He is now status post repeat paracentesis. Remainder of care per gastroenterology recommendations. The patient's overall prognosis is quite poor and I feel that he is hospice appropriate. 4. Hypovolemic versus septic shock I suspect that the patient's shock state is likely related to his underlying cirrhosis and third spacing that occurs. In addition, the patient has gram-negative pneumonia. The patient will be continued on low-dose Levophed, if needed, to maintain hemodynamic stability. Continue scheduled midodrine as well. 5. Anemia GI is following. Continue to trend H&H. Transfuse if hemoglobin drops below 7 g/dL. If anemia worsens, the patient will likely require upper endoscopy. 6. History of anemia/diabetes mellitus/duodenal ulcers/Parkinson's disease/hypothyroidism Complicates care, management, recovery and prognosis. Continue supportive measures as noted above. Hold on tube feeding for now given underlying ileus. CODE STATUS: DNR CCA (plan to transition to DNR comfort care with terminal extubation, upon family arrival) TIME: 33 minutes of critical care time, independent of procedures, was spent addressing the patient's acute combined respiratory failure, acute metabolic encephalopathy, decompensated liver cirrhosis, hypovolemic versus septic shock, anemia, review of all data and collaboration with the care team. Subjective Subjective The patient was seen and examined at the bedside this morning. Events from the last 24 hours have been reviewed. The patient remains on assist-control mode mechanical ventilation with an FiO2 requirement of 25%. In addition, the patient remains on low-dose Levophed to maintain hemodynamic stability. No overnight issues were identified by the nursing staff. There are still tentative plans for compassionate extubation and initiation of comfort care measures today, once the patient's family arrives later this morning. Objective Data Objective Data The patient's most recent lab work, culture data and imaging studies have all been personally reviewed. Preliminary sputum culture was positive for 2+ Providencia. Vital Signs: Vital Signs Temp Pulse Resp BP Pulse Ox O2 Del Method O2 Flow Rate 98.0 F 80 14 129/59 H 97 Mechanical Ventilator 2 10/23/23 04:00 10/23/23 05:10 10/23/23 05:10 10/23/23 04:00 10/23/23 05:10 10/23/23 04:00 10/21/23 09:15 FiO2 25 10/23/23 05:10 Oxygen Flow Rate (L/min) 2 Oxygen Delivery Method Mechanical Ventilator Weight: 173 lb 11.588 oz Body Mass Index (BMI) 27.9 Intake & Output: Intake and Output for Last 24 Hours 10/21/23 10/22/23 10/23/23 23:59 23:59 23:59 Intake Total 1229.46 / 1245.43 1290.92 / 1302.22 137.91 / 137.91 Output Total 1500 / 1675 975 / 1200 325 / 325 Balance -270.54 / -429.57 315.92 / 102.22 -187.09 / -187.09 Lab / Micro Data Attestation: I reviewed the patient's lab results. 10/23/23 04:58 10/23/23 04:58 Labs: Laboratory Results - last 24 hr 10/18/23 09:15: Diff Path Review Reviewed 10/22/23 12:06: POC Glucose 97 10/22/23 17:49: POC Glucose 94 10/22/23 18:22: POC Glucose 84 10/22/23 23:47: POC Glucose 96 10/23/23 04:58: WBC 6.0, RBC 2.57 L, Hgb 8.4 L, Hct 25.7 L, MCV 100.0 H, MCH 32.7 H, MCHC 32.7, RDW Std Deviation 58.8 H, RDW Coeff of Jean Claude 16.1 H, Plt Count 86 L, MPV 9.0, Immature Gran % (Auto) 1.000 H, Neut % (Auto) 75.6 H, Lymph % (Auto) 10.4 L, Anderson % (Auto) 8.7, Eos % (Auto) 4.0, Baso % (Auto) 0.3, Absolute Neuts (auto) 4.5, Absolute Lymphs (auto) 0.62 L, Nucleated RBC % 0, Sodium 139, Potassium 3.5, Chloride 107, Carbon Dioxide 24.0, Anion Gap 8, BUN 41 H, Creatinine 1.54 H, Estim Creat Clear Calc 37.77, Est GFR (MDRD) Af Amer 56 L, Est GFR (MDRD) Non-Af 46 L, BUN/Creatinine Ratio 26.6 H, Glucose 97, Calcium 7.9 L 10/23/23 05:10: POC Glucose 89 Micro: Microbiology 10/21/23 09:35 Sputum, Induced/Lukens Gram Stain - Final 10/21/23 09:35 Sputum, Induced/Lukens Respiratory Culture - Preliminary Presumptive C albicans 10/13/23 16:58 Blood Culture (Wb) - Anticubital Left Blood Culture - Final No growth in 5 days. 10/13/23 17:00 Urine, Catheterized Urine Culture - Final Mixed Gram Positive Organisms 10/13/23 17:07 Sputum, Induced/Lukens Gram Stain - Final 10/13/23 17:07 Sputum, Induced/Lukens Respiratory Culture - Final Providencia rettgeri 10/13/23 20:57 Mucosa - Nasopharyngeal Respiratory Panel (PCR) - Final 10/13/23 17:15 Mucosa - Nose SARS-CoV-2, Influenza & RSV (PCR) - Final ABG Data ABG results: ABG 10/21/23 10/21/23 09:05 10:16 Specimen Type ART ART Sample Site R Brach R Brach pH 7.16 L* 7.41 Bicarbonate Actual 26.4 H 24.6 Total CO2 29 26 Base Excess -2 0 O2 Saturation 96 89 L O2 % 2.0 30.0 ABG pCO2 73.8 H* 38.9 ABG pO2 104 H 56 L Respiration Rate 14 O2 Delivery Device Not entered Adult Vent Vent Mode Not entered AC Tidal Volume 450.0 POC PEEP 5 Crit Call To/Read Back Yes Blood Gas Notified Whom [facility] Blood Gas Notified Time 09:06:25 Radiography Diagnostic Testing: Radiology Impression Chest X-Ray 10/21/23 09:50 IMPRESSION: Bilateral pleural effusions with bilateral atelectasis or pneumonia, increased on the left. Gaseous distention or dilatation balmy upper abdomen, raising the possibility of ileus or obstruction. Satisfactory appearance of lines/tubes. Electronically Signed: Zakiya Molina MD at 10:10 EDT Reading Location ID and State: [facility] / [place] Tel , Service support , Physical Exam Const Constitutional Narrative: Remains intubated, sedated and mechanically ventilated. No ventilator dyssynchrony noted. HEENT normocephalic and head/scalp atraumatic Mouth: endotracheal tube in place and OG tube in place Eyes PERRL and EOMs intact bilaterally Neck supple General: trachea midline Chest inspection of chest normal Resp normal respiratory effort Auscultation: rales and diminished lung sounds Cardio regular rate and regular rhythm GI soft to palpation and non-tender Extremity General Extremity: edema; Negative for clubbing Skin no rashes or lesions noted Neuro Sensorium / Orientation: sedated on vent Charges/Coding Procedures Hospitalists Procedures: [id number] Critical Care 1st Hr
[2023-10-23] MEDS: TITRATION PARAMETER CHANGE 1 EACH IV (07:00)
--- NOTE | 2023-10-23 07:23 | PN.HOSP_ITS ---
Reason for Visit Reason for Visit: Diagnoses Chronic obstructive pulmonary disease, unspecified (10/13/23) Acute respiratory failure with hypercapnia (10/13/23) Respiratory failure, unspecified, unspecified whether with hypoxia or hypercapnia (10/13/23) Other ascites (10/13/23) Subjective Subjective Patient seen remains on the vent responds to simple commands. Plan is for extubation from the vent. Family request with no plans to reintubate if patient respiratory status deteriorated Objective Data Objective Data Vital Signs: Vital Signs Temp Pulse Resp BP Pulse Ox O2 Del Method O2 Flow Rate 98.2 F 80 14 115/50 L 95 Mechanical Ventilator 2 10/23/23 07:00 10/23/23 07:20 10/23/23 07:20 10/23/23 07:00 10/23/23 07:20 10/23/23 07:00 10/21/23 09:15 FiO2 25 10/23/23 07:00 Oxygen Flow Rate (L/min) 2 Oxygen Delivery Method Mechanical Ventilator Weight: 78.8 kg Body Mass Index (BMI) 27.9 Intake & Output: Intake and Output for Last 24 Hours 10/21/23 10/22/23 10/23/23 23:59 23:59 23:59 Intake Total 1229.46 / 1245.43 1290.92 / 1302.22 188.81 / 188.81 Output Total 1500 / 1675 975 / 1200 325 / 325 Balance -270.54 / -429.57 315.92 / 102.22 -136.19 / -136.19 Lab / Micro Data 10/23/23 04:58 10/23/23 04:58 Labs: Laboratory Results - last 24 hr 10/18/23 09:15: Diff Path Review Reviewed 10/22/23 12:06: POC Glucose 97 10/22/23 17:49: POC Glucose 94 10/22/23 18:22: POC Glucose 84 10/22/23 23:47: POC Glucose 96 10/23/23 04:58: WBC 6.0, RBC 2.57 L, Hgb 8.4 L, Hct 25.7 L, MCV 100.0 H, MCH 32.7 H, MCHC 32.7, RDW Std Deviation 58.8 H, RDW Coeff of Jean Claude 16.1 H, Plt Count 86 L, MPV 9.0, Immature Gran % (Auto) 1.000 H, Neut % (Auto) 75.6 H, Lymph % (Auto) 10.4 L, Kinney % (Auto) 8.7, Eos % (Auto) 4.0, Baso % (Auto) 0.3, Absolute Neuts (auto) 4.5, Absolute Lymphs (auto) 0.62 L, Nucleated RBC % 0, Sodium 139, Potassium 3.5, Chloride 107, Carbon Dioxide 24.0, Anion Gap 8, BUN 41 H, C reatinine 1.54 H, Estim Creat Clear Calc 37.77, Est GFR (MDRD) Af Amer 56 L, Est GFR (MDRD) Non-Af 46 L, BUN/Creatinine Ratio 26.6 H, Glucose 97, Calcium 7.9 L 10/23/23 05:10: POC Glucose 89 Micro: Microbiology 10/21/23 09:35 Sputum, Induced/Lukens Gram Stain - Final 10/21/23 09:35 Sputum, Induced/Lukens Respiratory Culture - Preliminary Presumptive C albicans 10/13/23 16:58 Blood Culture (Wb) - Anticubital Left Blood Culture - Final No growth in 5 days. 10/13/23 17:00 Urine, Catheterized Urine Culture - Final Mixed Gram Positive Organisms 10/13/23 17:07 Sputum, Induced/Lukens Gram Stain - Final 10/13/23 17:07 Sputum, Induced/Lukens Respiratory Culture - Final Providencia rettgeri 10/13/23 20:57 Mucosa - Nasopharyngeal Respiratory Panel (PCR) - Final 10/13/23 17:15 Mucosa - Nose SARS-CoV-2, Influenza & RSV (PCR) - Final Physical Exam Narrative GENERAL: Sedated on the vent HEENT: Atraumatic; normocephalic EYES; Anicteric, Normal Conjunctiva NECK; supple, normal thyroid, RESPIRATORY: Diminished to auscultation CARDIOVASCULAR: Regular S1 S2, GI: soft, normoactive bowel sounds, : No Renal angle tenderness; EXTREMITIES: edema, no clubbing, MUSCULOSKELETAL: no muscle wasting NEURO: Sedated on the vent SKIN: No Rash Assessment & Plan Assessment/Plan (1) Respiratory failure requiring intubation: (2) COPD (chronic obstructive pulmonary disease): PLAN: Plan Patient is an 78-year-old gentleman who was admitted with altered mental status and assessment of acute hypoxic respiratory failure made patient intubated and admitted to the intensive care unit 1. Acute hypoxic and hypercapnic respiratory failure ?Imaging studies demonstrated Large bilateral pleural effusions with compressive atelectasis in the lung bases. There are patchy airspace opacities in the right upper lobe, right middle lobe and left lower lobe suggesting bilateral pneumonia.Patient was intubated on admission extubated and had to be reintubated on 10/21/2023. Remains on broad-spectrum antibiotic therapy. Pulmonary medicine on board ? 10/23/2023atient seen remains on the vent responds to simple commands. Plan is for extubation from the vent. Family request with no plans to reintubate if patient respiratory status deteriorated 2. Pneumonia with subsided multidrug resistance organism ? Patient presented with respiratory failure resulting in patient being intubated currently managed with cefepime 3. Acute metabolic encephalopathy ? Secondary to pneumonia, respiratory failure and hepatic encephalopathy (present on admission) 4. . Alcoholic cirrhosis of the liver ? Patient is on rifaximin, nadolol and lactulose 5. Recurrent ascites ? Secondary to alcoholic liver cirrhosis. Patient has undergone ultrasound- guided paracentesis during his current admission 6. Thrombocytopenia ? Secondary to chronic liver disease monitoring with daily CBC with differential 7. Anemia - Secondary to chronic disorder monitoring H&H and transfuse if patient becomes symptomatic or hemoglobin falls below 7 8. Diabetes mellitus type 2 ? Place on Accu-Cheks before meals and at bedtime with sliding scale coverage 9. Parkinson's disease ? Patient was on Sinemet plan is to resume following extubation 10. Hypothyroidism ? Patient is on levothyroxine home dose continued 11. Acute kidney injury ? Patient creatinine from 06/17/2023 was 1.08, creatinine was 2.14 did improve rehydration 12. Septic shock ? Present on admission treated per protocol 13. BPH ? On tamsulosin as outpatient Time spent in the patient's overall evaluation,decision-making process, review of diagnostic data, adjustment of management, discussion with other providers, nursing nursing and ancillary staff involved in patient's care documentation, 50 Minutes Charges/Coding Visit Charges Inpatient E&M: 00087 [facility] Hosp L3
[2023-10-23] MEDS: Chlorhexidine 15 ML PO (09:15)
[2023-10-23 12:30] LABS: Bedside Glucose 92 mg/dL (74-106)
--- NOTE | 2023-10-23 12:47 | CASEMGMT ---
Social Work Dgt Maryanne and a friend present with pt at this time. SW present for support. Maryanne denies needs at this time. Maryanne made aware that SW is available should needs arise. RATNA Apodaca
[2023-10-23] MEDS: LORazepam 2 MG/ML Syringe IV ×2 (13:35→21:17)
[2023-10-23] MEDS: Morphine 2 MG/ML Syringe IV ×2 (13:35→21:17)
--- NOTE | 2023-10-23 14:08 | NURSING ---
Patient was terminally extubated with family at bedside at 13:35. Patient was given 4mg of morphine IV and 2mg of Ativan IV. Patient family remained in the room at all times.
--- NOTE | 2023-10-23 21:25 | NURSING ---
Patient tachycardic on the monitor. Labored breathing with low respirations. Upon assessing patient, patient resistive to touch and pain. Facial grimacing when turning and repositioning in the bed. Restless movements. PRN Ativan and Morphine given based on nonverbal pain scale and presented agitation
[2023-10-24 00:11] LABS: Bedside Glucose 80 mg/dL (74-106)
[2023-10-24] MEDS: LORazepam 2 MG/ML Syringe IV ×2 (00:12→04:22)
[2023-10-24] MEDS: Morphine 2 MG/ML Syringe IV ×4 (00:12→04:22)
[2023-10-24] MEDS: 0.9% Saline Lock 10 ML Syringe IV ×4 (00:12→04:22)
[2023-10-24 06:02] LABS: Bedside Glucose 86 mg/dL (74-106)
--- NOTE | 2023-10-24 07:16 | PN.HOSP_ITS ---
Reason for Visit Reason for Visit: Diagnoses Chronic obstructive pulmonary disease, unspecified (10/13/23) Acute respiratory failure with hypercapnia (10/13/23) Respiratory failure, unspecified, unspecified whether with hypoxia or hypercapnia (10/13/23) Other ascites (10/13/23) Subjective Subjective Patient was terminally weaned off the vent. Palliative care symptom management subsequently initiated Objective Data Objective Data Vital Signs: Vital Signs Temp Pulse Resp BP Pulse Ox O2 Del Method O2 Flow Rate 97.5 F L 109 H 8 L 104/52 L 77 Room Air 2 10/23/23 19:41 10/23/23 19:41 10/23/23 19:41 10/23/23 19:41 10/23/23 19:41 10/23/23 19:41 10/21/23 09:15 FiO2 25 10/23/23 13:00 Oxygen Flow Rate (L/min) 2 Oxygen Delivery Method Room Air Weight: 78.8 kg Body Mass Index (BMI) 27.9 Intake & Output: Intake and Output for Last 24 Hours 10/22/23 10/23/23 10/24/23 23:59 23:59 23:59 Intake Total 1290.92 / 1302.22 766.32 / 766.32 Output Total 975 / 1200 500 / 600 100 / 100 Balance 315.92 / 102.22 266.32 / 166.32 -100 / -100 Lab / Micro Data 10/23/23 04:58 10/23/23 04:58 Labs: Laboratory Results - last 24 hr 10/23/23 12:12: POC Glucose 92 10/23/23 23:50: POC Glucose 80 10/24/23 05:44: POC Glucose 86 Micro: Microbiology 10/21/23 09:35 Sputum, Induced/Lukens Gram Stain - Final 10/21/23 09:35 Sputum, Induced/Lukens Respiratory Culture - Final Presumptive C albicans 10/13/23 16:58 Blood Culture (Wb) - Anticubital Left Blood Culture - Final No growth in 5 days. 10/13/23 17:00 Urine, Catheterized Urine Culture - Final Mixed Gram Positive Organisms 10/13/23 17:07 Sputum, Induced/Lukens Gram Stain - Final 10/13/23 17:07 Sputum, Induced/Lukens Respiratory Culture - Final Providencia rettgeri 10/13/23 20:57 Mucosa - Nasopharyngeal Respiratory Panel (PCR) - Final 10/13/23 17:15 Mucosa - Nose SARS-CoV-2, Influenza & RSV (PCR) - Final Physical Exam Narrative GENERAL: Patient unresponsive HEENT: Atraumatic; normocephalic EYES; Anicteric, Normal Conjunctiva NECK; supple, normal thyroid, RESPIRATORY: Diminished to auscultation CARDIOVASCULAR: Regular S1 S2, GI: soft, normoactive bowel sounds, : No Renal angle tenderness; EXTREMITIES: edema, no clubbing, MUSCULOSKELETAL: no muscle wasting NEURO: Patient is unresponsive Assessment & Plan Assessment/Plan (1) Respiratory failure requiring intubation: (2) COPD (chronic obstructive pulmonary disease): PLAN: Plan Patient is an 78-year-old gentleman who was admitted with altered mental status and assessment of acute hypoxic respiratory failure made patient intubated and admitted to the intensive care unit 1. Acute hypoxic and hypercapnic respiratory failure ?Imaging studies demonstrated Large bilateral pleural effusions with compressive atelectasis in the lung bases. There are patchy airspace opacities in the right upper lobe, right middle lobe and left lower lobe suggesting bilateral pneumonia.Patient was intubated on admission extubated and had to be reintubated on 10/21/2023. Remains on broad-spectrum antibiotic therapy. Pulmonary medicine on board ? 10/23/2023atient seen remains on the vent responds to simple commands. Plan is for extubation from the vent. Family request with no plans to reintubate if patient respiratory status deteriorated ? 10/24/2023;Patient was terminally weaned off the vent. Palliative care symptom management subsequently initiated 2. Pneumonia with subsided multidrug resistance organism ? Patient presented with respiratory failure resulting in patient being intubated currently managed with cefepime 3. Acute metabolic encephalopathy ? Secondary to pneumonia, respiratory failure and hepatic encephalopathy (present on admission) 4. . Alcoholic cirrhosis of the liver ? Patient is on rifaximin, nadolol and lactulose 5. Recurrent ascites ? Secondary to alcoholic liver cirrhosis. Patient has undergone ultrasound- guided paracentesis during his current admission 6. Thrombocytopenia ? Secondary to chronic liver disease monitoring with daily CBC with differential 7. Anemia - Secondary to chronic disorder monitoring H&H and transfuse if patient becomes symptomatic or hemoglobin falls below 7 8. Diabetes mellitus type 2 ? Place on Accu-Cheks before meals and at bedtime with sliding scale coverage 9. Parkinson's disease ? Patient was on Sinemet plan is to resume following extubation 10. Hypothyroidism ? Patient is on levothyroxine home dose continued 11. Acute kidney injury ? Patient creatinine from 06/17/2023 was 1.08, creatinine was 2.14 did improve rehydration 12. Septic shock ? Present on admission treated per protocol 13. BPH ? On tamsulosin as outpatient Time spent in the patient's overall evaluation,decision-making process, review of diagnostic data, adjustment of management, discussion with other providers, nursing nursing and ancillary staff involved in patient's care documentation, 36 Minutes Charges/Coding Visit Charges Inpatient E&M: 06273 Subs Hosp L2
--- NOTE | 2023-10-24 11:43 | PCM.DC.SUM ---
Providers Date of Admission: 10/13/23 Date of Discharge: 10/24/23 Primary Care Physician: Dr. Roger Bright MD Consultations 10/13/23 19:39 Consult: Scrap Shear Operator / Pulmonary Medicine Routine Consulting Provider: Intensivists/Pulmonary Med Reason for Consult: intubated, ciritcal care EMERGENT Consult: No Notified: Yes Date Notified: 10/14/23 Time Notified: 05:43 Method of Notification: Text 10/14/23 11:31 Consult: Gastroenterology Routine Consulting Provider: [facility] Reason for Consult: Decompensated Cirrhosis EMERGENT Consult: No Notified: Yes Date Notified: 10/14/23 Time Notified: 11:31 Method of Notification: Text 10/24/23 07:34 Consult: Hospice / Palliative Care Routine Consulting Provider: [facility] Reason for Consult: End-of-life care EMERGENT Consult: No Notified: No Date Notified: 10/24/23 Time Notified: 07:34 10/24/23 08:21 Consult: Hospice / Palliative Care Routine Consulting Provider: [facility] Reason for Consult: end of life care EMERGENT Consult: No Notified: Yes Date Notified: 10/24/23 Time Notified: 08:22 Method of Notification: Verbal Reason For Visit: ACUTE HYPERCAPNIC RESPIRATORY FAILURE Diagnosis Discharge Diagnosis (1) Respiratory failure requiring intubation: Status: Acute Code(s): J96.90 - Respiratory failure, unspecified, unspecified whether with hypoxia or hypercapnia (2) COPD (chronic obstructive pulmonary disease): Status: Chronic Code(s): J44.9 - Chronic obstructive pulmonary disease, unspecified Plan Patient is an 78-year-old gentleman who was admitted with altered mental status and assessment of acute hypoxic respiratory failure made patient intubated and admitted to the intensive care unit 1. Acute hypoxic and hypercapnic respiratory failure ?Imaging studies demonstrated Large bilateral pleural effusions with compressive atelectasis in the lung bases. There are patchy airspace opacities in the right upper lobe, right middle lobe and left lower lobe suggesting bilateral pneumonia.Patient was intubated on admission extubated and had to be reintubated on 10/21/2023. Remains on broad-spectrum antibiotic therapy. Pulmonary medicine on board ? 10/23/2023atient seen remains on the vent responds to simple commands. Plan is for extubation from the vent. Family request with no plans to reintubate if patient respiratory status deteriorated ? 10/24/2023;Patient was terminally weaned off the vent. Palliative care symptom management subsequently initiated ? Consult was placed to the inpatient hospice service patient was transferred to hospice in a medical facility 2. Pneumonia with subsided multidrug resistance organism ? Patient presented with respiratory failure resulting in patient being intubated currently managed with cefepime 3. Acute metabolic encephalopathy ? Secondary to pneumonia, respiratory failure and hepatic encephalopathy (present on admission) 4. . Alcoholic cirrhosis of the liver ? Patient is on rifaximin, nadolol and lactulose 5. Recurrent ascites ? Secondary to alcoholic liver cirrhosis. Patient has undergone ultrasound-guided paracentesis during his current admission 6. Thrombocytopenia ? Secondary to chronic liver disease monitoring with daily CBC with differential 7. Anemia - Secondary to chronic disorder monitoring H&H and transfuse if patient becomes symptomatic or hemoglobin falls below 7 8. Diabetes mellitus type 2 ? Place on Accu-Cheks before meals and at bedtime with sliding scale coverage 9. Parkinson's disease ? Patient was on Sinemet plan is to resume following extubation 10. Hypothyroidism ? Patient is on levothyroxine home dose continued 11. Acute kidney injury ? Patient creatinine from 06/17/2023 was 1.08, creatinine was 2.14 did improve rehydration 12. Septic shock ? Present on admission treated per protocol 13. BPH ? On tamsulosin as outpatient Time spent in the patient's overall evaluation,decision-making process, review of diagnostic data, adjustment of management, discussion with other providers, nursing nursing and ancillary staff involved in patient's care documentation, 36 Minutes Medications at Discharge Home Medications tamsulosin 0.4 mg capsule 0.8 mg PO QHS prostate 06/26/15 carbidopa 25 mg-levodopa 100 mg tablet 2 tab PO TIDAC parkinsons 09/11/15 empagliflozin 10 mg tablet (Jardiance) 10 mg PO DAILY diabetes 01/09/18 levothyroxine 125 mcg tablet (Levoxyl) 125 mcg PO DAILY THYROID 03/06/22 ropinirole 2 mg tablet 2 mg PO QHS RESTLESS LEGS 03/06/22 trazodone 50 mg tablet 30 mg PO DAILY SLEEP 03/06/22 acetaminophen 325 mg tablet (Tylenol) 650 mg (2 x 325 mg) PO Q6H PRN PRN Pain 1-10 Or Fever >100.7 #0 tabs 03/13/22 insulin lispro 100 unit/mL subcutaneous pen (Humalog KwikPen (U-100) Insulin) See Protocol subcut ACHS diabetes #0 mL 03/13/22 gabapentin 100 mg capsule 100 mg PO TID pain 30 days #90 caps 06/03/23 oxycodone 5 mg capsule 5 mg PO Q6H PRN pain 3 days #12 caps 06/03/23 furosemide 40 mg tablet 40 mg PO BID diuretic 1 month #60 tabs 06/25/23 lactulose 20 gram/30 mL oral solution 20 g (30 mL) PO BID 1 month #1,800 mL 06/25/23 nadolol 20 mg tablet 20 mg PO DAILY 1 month #30 tabs 06/25/23 pantoprazole 40 mg tablet,delayed release 40 mg PO DAILY reflux #30 tabs 06/25/23 rifaximin 550 mg tablet (Xifaxan) 550 mg PO BID stools 1 month #60 tabs 06/25/23 spironolactone 50 mg tablet 50 mg PO DAILY diuretic 1 month #30 tabs 06/25/23 Physical Exam Narrative GENERAL: Patient unresponsive HEENT: Atraumatic; normocephalic EYES; Anicteric, Normal Conjunctiva NECK; supple, normal thyroid, RESPIRATORY: Diminished to auscultation CARDIOVASCULAR: Regular S1 S2, GI: soft, normoactive bowel sounds, : No Renal angle tenderness; EXTREMITIES: edema, no clubbing, MUSCULOSKELETAL: no muscle wasting NEURO: Patient is unresponsive Weight / BMI Weight Weight: 78.8 kg Body Mass Index (BMI) 27.9 ABG / Lab / Microbiology Data 10/23/23 04:58 10/23/23 04:58 Laboratory: Laboratory Results - last 24 hr 10/23/23 12:12: POC Glucose 92 10/23/23 23:50: POC Glucose 80 10/24/23 05:44: POC Glucose 86 Microbiology: Microbiology 10/21/23 09:35 Sputum, Induced/Lukens Gram Stain - Final 10/21/23 09:35 Sputum, Induced/Lukens Respiratory Culture - Final Presumptive C albicans 10/13/23 16:58 Blood Culture (Wb) - Anticubital Left Blood Culture - Final No growth in 5 days. 10/13/23 17:00 Urine, Catheterized Urine Culture - Final Mixed Gram Positive Organisms 10/13/23 17:07 Sputum, Induced/Lukens Gram Stain - Final 10/13/23 17:07 Sputum, Induced/Lukens Respiratory Culture - Final Providencia rettgeri 10/13/23 20:57 Mucosa - Nasopharyngeal Respiratory Panel (PCR) - Final 10/13/23 17:15 Mucosa - Nose SARS-CoV-2, Influenza & RSV (PCR) - Final D/C Instructions Discharge Diet: No restrictions Meaningful Use Info Meaningful Use Meaningful Use Diagnoses (Choose all that apply): None applicable Ischemic Stroke Statin Dosing Therapy Reference: STATIN DOSE THERAPY REFERENCE: * Patients > 75 years receive moderate or high dose statin therapy. * Patients 75 years or YOUNGER should receive HIGH intensity statin dose unless contraindicated. You will be required to document reason for non-treatment if statin daily dose does not meet guidelines. HIGH DOSE STATIN THERAPY DAILY Atorvastatin > than or = to 40 mg Rosuvastatin > than or = to 20 mg Amlodipine + Atorvastatin > than or = to 2.5/40 mg Ezetimibe + Simvastatin 10/80 mg Simvastatin 80mg Discharge Plan Admission Admit Date/Time: 10/13/23 19:06 Attending Provider: Rohith Vann Primary Care Provider: Roger Bright Chi Consulting Providers: Raymundo Mendoza; Jelani Peter; Martinez Srinivasan; Rohith Hobson; Jese Henson; Quinton Cisneros; Suma Mendoza; Bill Peguero; Anastacio Duff; Migdalia Hendrickson; Salbador Harley; Ernesto Yates; John Quach; Quinn Munoz; Bruce Solano; Abelardo Martinez; Bernarda Ugalde; Edis Silveira; Rohith Florentino; Khadijah Scott; Tianna Lane; Ifrah Deleon SOFTWARE TEST TECHNICIAN Discharge Orders/Prescriptions Prescriptions: No Action furosemide 40 mg tablet 40 mg PO BID 30 Days Qty: 60 3RF lactulose 20 gram/30 mL solution 20 g PO BID 30 Days Qty: 1800 5RF Rx Instructions: Titrate to goal of 2-3 soft bowel movements per day nadolol 20 mg tablet 20 mg PO DAILY 30 Days Qty: 30 5RF Rx Instructions: Hold for heart less than 50 or systolic blood pressure less than 90 mmHg. Xifaxan 550 mg tablet 550 mg PO BID 30 Days Qty: 60 5RF pantoprazole 40 mg tablet,delayed release (DR/EC) 40 mg PO DAILY Qty: 30 3RF spironolactone 50 mg tablet 50 mg PO DAILY 30 Days Qty: 30 4RF Rx Instructions: Hold for serum potassium more than 5.0. tamsulosin 0.4 MG capsule 0.8 mg PO QHS carbidopa-levodopa 1 TABLET tablet 2 tab PO TIDAC Jardiance 10 MG tablet 10 mg PO DAILY trazodone 50 mg tablet 30 mg PO DAILY ropinirole 2 mg tablet 2 mg PO QHS levothyroxine [Levoxyl] 125 mcg tablet 125 mcg PO DAILY acetaminophen [Tylenol] 325 mg Tablet 650 mg PO Q6H PRN PRN (Reason: Pain 1-10 Or Fever >100.7) Qty: 0 0RF insulin lispro [Humalog KwikPen Insulin] 100 unit/mL Insulin Pen See Protocol subcut ACHS Qty: 0 0RF Protocol: 1. Sliding Scale Insulin Low Dosing Condition: 150-224 mg/dl = 1 unit Condition: 225-299 mg/dl = 2 units Condition: 300-374 mg/dl = 3 units Condition: 375-499 mg/dl = 4 units Condition: Greater than 449 call physician Protocol Text: - Use for Total Daily Dose of Insulin 15-27 units - Thin, elderly, renal patients LOW DOSING ALGORITHM oxycodone 5 mg capsule 5 mg PO Q6H PRN (Reason: pain) 3 Days Qty: 12 0RF gabapentin 100 mg capsule 100 mg PO TID 30 Days Qty: 90 1RF Referrals / Follow Up: Roger Bright Chi, MD [Primary Care Provider] - Disposition Disposition (needs filled in before D/C Order can be placed): Hospice in Medical Facility Charges/Coding Visit Charges Inpatient E&M: 11490 Disch Hosp >30min
--- NOTE | 2023-10-24 16:29 | NURSING ---
Report called to inpatient hospice
== END 2023-10-24 20:20 | disposition hospice, inpatient (51) | DRG 870 ==
LOC: ED 17:14 → ICU 19:51
PROVIDERS: Family Medicine; Internal Medicine; Internal Medicine Critical Care Medicine; Admitting Provider Internal Medicine; Emergency Provider Emergency Medicine; PCP Family Medicine Geriatric Medicine; Visit Provider Internal Medicine
DX: A41.9 Sepsis, unspecified organism (principal); J96.01 Acute respiratory failure with hypoxia; R57.8 Other shock; G93.41 Metabolic encephalopathy; J15.69 Pneumonia due to other Gram-negative bacteria; R65.21 Severe sepsis with septic shock; J96.02 Acute respiratory failure with hypercapnia; J44.0 Chronic obstructive pulmonary disease with (acute) lower respiratory infection; D61.818 Other pancytopenia; E87.0 Hyperosmolality and hypernatremia; K76.6 Portal hypertension; K56.7 Ileus, unspecified; E87.29 Other acidosis; N17.9 Acute kidney failure, unspecified; J98.11 Atelectasis; J90 Pleural effusion, not elsewhere classified; N13.8 Other obstructive and reflux uropathy; Z16.24 Resistance to multiple antibiotics; E11.9 Type 2 diabetes mellitus without complications; G20.A1 Parkinson's disease without dyskinesia, without mention of fluctuations; D63.8 Anemia in other chronic diseases classified elsewhere; I10 Essential (primary) hypertension; E03.9 Hypothyroidism, unspecified; K76.82 Hepatic encephalopathy; K70.31 Alcoholic cirrhosis of liver with ascites; Z79.4 Long term (current) use of insulin; D53.9 Nutritional anemia, unspecified; E87.5 Hyperkalemia; E78.5 Hyperlipidemia, unspecified; E86.1 Hypovolemia; Z79.84 Long term (current) use of oral hypoglycemic drugs; Z87.891 Personal history of nicotine dependence; Z79.890 Hormone replacement therapy; Z66 Do not resuscitate; Z51.5 Encounter for palliative care; Z79.899 Other long term (current) drug therapy; N40.1 Benign prostatic hyperplasia with lower urinary tract symptoms
CPT/HCPCS: 31500; 31720; 36415; 36556; 36600; 49083; 51702; 70450; 71045; 71250; 74176; 76705; 80048; 80053; 80202; 81001; 82140; 82550; 82803; 82962; 83605; 83735; 84100; 84478; 85025; 85610; 85730; 86850; 86900; 86901; 86920; 87040; 87070; 87077; 87086; 87088; 87186; 87205; 87631; 87633; 88108; 88305; 88313; 93005; 94002; 94003; 94640; 94660; 94762; 97110; 97162; 97165; 97530; 97535; 97803; 99252; 99285; J7030; J7040; J7050; P9016; P9047; A4216; G0463